=== PATIENT | female | born 1975 | race Hispanic/Latino ===

== ENCOUNTER 2019-06-28 17:06 | Emergency (ER) | payer MEDICAID ==
--- NOTE | 2019-06-28 17:14 | Emergency Department Report ---
Blank Doc - Documentation Documentation: This is a 43-year-old female that presents with right great big toe pain and s welling with possible cellulitis/abscess. Stated has some purulent drainage. This initial assessment/diagnostic orders/clinical plan/treatment(s) is/are subject to change based on patient's health status, clinical progression and re- assessment by fellow clinical providers in the ED. Further treatment and workup at subsequent clinical providers discretion. Patient/guardians urged not to elope from the ED as their condition may be serious if not clinically assessed and managed. Initial orders include: 1- Patient sent to [facility] for further evaluation and treatment
[2019-06-28 17:15] VITALS: BP 120/77
[2019-06-28] MEDS ORDERED: DELTASONE PO STA (20:38)
[2019-06-28] MEDS ORDERED: NORCO 5/325 PO STA (20:38)
--- NOTE | 2019-06-28 20:47 | Emergency Department Report ---
- General Chief Complaint: Animal Bite Stated Complaint: POSS SPIDER BITE ON (R) TOE Time Seen by Provider: 06/28/19 17:13 Source: patient Mode of arrival: Ambulatory Limitations: No Limitations - History of Present Illness Initial Comments: 43-year-old female to emergency department complaining of having a second bite to the right hallux which is swelling and has the clear drainage dull throbbing sensation to his worried about infection presents to the ED for treatment of the infection. She reports no numbness or tingling. No fever, chills, sweats no clubbing, chest pain or palpitations. No abdominal pain. She -: Gradual Extremity Location: Right: Foot Patient Tetanus UTD: No Context: accidental Associated Symptoms: pain - Related Data Previous Rx's Medication Instructions Recorded Last Taken Type Amoxicillin/Potassium Clav 1 each PO BID #20 tablet 06/28/19 Unknown Rx [Augmentin 875-125 Tablet] Chlorhexidine Mouthwash [Peridex] 15 ml MM BID #473 bottle 06/28/19 Unknown Rx Allergies Allergy/AdvReac Type Severity Reaction Status Date / Time latex Allergy Anaphylaxis Verified 06/28/19 17:11 tramadol [From Ultram] Allergy Unknown Verified 06/28/19 17:10 ketorolac [From Toradol] AdvReac Seizure Verified 06/28/19 17:10 prochlorperazine AdvReac Unknown Verified 06/28/19 17:11 [From Compazine] ED Review of Systems ROS: Stated complaint: POSS SPIDER BITE ON (R) TOE Other details as noted in HPI Comment: All other systems reviewed and negative ED Past Medical Hx - Past Medical History Previous Medical History?: Yes Hx Psychiatric Treatment: Yes ([employer]) - Surgical History Past Surgical History?: Yes Additional Surgical History: Eye surgery, blind in right eye. - Social History Smoking Status: Never Smoker Substance Use Type: None - Medications Home Medications: Home Medications Medication Instructions Recorded Confirmed Last Taken Type Amoxicillin/Potassium Clav 1 each PO BID #20 tablet 06/28/19 Unknown Rx [Augmentin 875-125 Tablet] Chlorhexidine Mouthwash [Peridex] 15 ml MM BID #473 bottle 06/28/19 Unknown Rx ED Physical Exam - General Limitations: No Limitations General appearance: alert, in no apparent distress - Head Head exam: Present: atraumatic, normocephalic - Eye Eye exam: Present: normal appearance, PERRL, EOMI Pupils: Present: normal accommodation - ENT ENT exam: Present: normal exam, normal orophraynx, mucous membranes moist - Neck Neck exam: Present: normal inspection, full ROM - Respiratory Respiratory exam: Present: normal lung sounds bilaterally. Absent: respiratory distress - Cardiovascular Cardiovascular Exam: Present: regular rate, normal rhythm. Absent: systolic murmur, diastolic murmur, rubs, gallop - GI/Abdominal GI/Abdominal exam: Present: soft, normal bowel sounds - Extremities Exam Extremities exam: Present: normal inspection - Back Exam Back exam: Present: normal inspection - Neurological Exam Neurological exam: Present: alert, oriented X3 - Psychiatric Psychiatric exam: Present: normal affect, normal mood - Skin Skin exam: Present: warm, dry, erythema (right hallux has some erythema to the dorsum with a small puncture site (os). I will some local redness. There appears to be some mild lymphangitis as well. No lymphadenopathy is appreciated. Pulses are 2+. Capillary refills are brisk.). Absent: rash ED Course Vital Signs 06/28/19 17:13 Temperature 98.4 F Pulse Rate 71 Respiratory 18 Rate Blood Pressure 120/77 O2 Sat by Pulse 100 Oximetry ED Medical Decision Making - Medical Decision Making A 43-year-old female with a host of allergies presents with likely insect bite to toe with some redness and swelling involving infection. This she is afebrile, and infection appears to be local, not involving the entire toe, so we will give [employer] as well as the inflammatory process. I will have the wound reevaluated in 48 hours Critical care attestation.: If time is entered above; I have spent that time in minutes in the direct care of this critically ill patient, excluding procedure time. ED Disposition Clinical Impression: Cellulitis, toe Disposition: DC-01 TO HOME OR SELFCARE Is pt being admited?: No Does the pt Need Aspirin: No Condition: Stable Instructions: Cellulitis (ED), Insect Bite or Sting (ED), Acute Wound Care (ED), Wound Healing and Your Diet (ED) Prescriptions: Amoxicillin/Potassium Clav [Augmentin 875-125 Tablet] 1 each PO BID #20 tablet Chlorhexidine Mouthwash [Peridex] 15 ml MM BID #473 bottle Referrals: DERIC ALMAZAN MD [Primary Care Provider] - 3-5 Days
== END 2019-06-28 20:47 | disposition home or self-care (01) ==
LOC: ED 17:06
DX: L03.031 Cellulitis of right toe (principal); F31.9 Bipolar disorder, unspecified; Z98.890 Other specified postprocedural states; Z79.899 Other long term (current) drug therapy; Z88.8 Allergy status to other drugs, medicaments and biological substances; Z88.6 Allergy status to analgesic agent; Z91.040 Latex allergy status
CPT/HCPCS: 99282; J7512

== ENCOUNTER 2019-07-16 01:20 | Inpatient (IN) | payer MEDICAID ==
[2019-07-16] MEDS ORDERED: NACL 0.9% 500 ML 500 ML IV ONE (01:47)
[2019-07-16] MEDS ORDERED: NACL 0.9% 1000 ML 1,000 ML IV ONE ×7 (01:57→20:58)
[2019-07-16 02:21] LABS: Hematocrit 35.9 % (30.3-42.9); Hemoglobin 12.4 gm/dl (10.1-14.3); Mean Corpuscular HGB Conc 34 % (30-34); Mean Corpuscular Volume 90 fl (79-97); Platelet Count 101 K/mm3 (140-440); Red Blood Count 3.98 M/mm3 (3.65-5.03)
--- NOTE | 2019-07-16 02:27 | XRay Report ---
CHEST 1 VIEW INDICATION: possible Sepsis. COMPARISON: None FINDINGS: Support devices: None. Heart: Within normal limits. Lungs/Pleura: Minimal left basilar atelectasis. Otherwise clear lungs. Additional findings: None. IMPRESSION: 1. No acute findings. Signer Name: Bennett Herr MD Signed: 07/16/2019 2:22 AM Workstation Name: [email or web address]
[2019-07-16 02:31] LABS: INR 1.23 (0.87-1.13)
[2019-07-16] MEDS ORDERED: NACL 0.9% 500 ML 0 ML ONE (02:41)
[2019-07-16 02:45] LABS: Albumin 2.8 g/dL (3.9-5); Calcium 8.6 mg/dL (8.4-10.2)
[2019-07-16] MEDS ORDERED: ZOFRAN IV ONE (02:56)
[2019-07-16] MEDS ORDERED: TYLENOL PO ONE (02:56)
[2019-07-16] MEDS ORDERED: VANCOMYCIN/NS 1 GM/250 ML 1 GM/250 ML BAG IV ONE (03:00)
[2019-07-16 03:34] LABS: Basophils % (Manual) 0 % (0.0-1.8); Eosinophils % (Manual) 0 % (0.0-4.3); Total Cells Counted 100
[2019-07-16 03:35] LABS: Anisocytosis 1+; Crenated RBC 1+; Platelet Estimate Consistent w Auto
--- NOTE | 2019-07-16 04:07 | Cat Scan Report ---
CT ABDOMEN AND PELVIS WITHOUT CONTRAST HISTORY: gen abd pain, hypotension. COMPARISON: None. TECHNIQUE: CT images of the abdomen and pelvis were obtained without administration of intravenous co ntrast. All CT scans at this location are performed using CT dose reduction for ALARA by means of au tomated exposure control. FINDINGS: Lungs/bones: There is mild bibasilar atelectasis and a 5 mm nodule in the periphery of the right mid dle lobe on image #1 of series #2. Mild degenerative changes are present in the spine with a limbus v ertebral body at L4. Nothing acute. Abdomen/pelvis: There is mild periportal edema. The spleen is borderline enlarged but otherwise ther e is no mass. The pancreas, gallbladder, adrenals, and proximal GI tract appear unremarkable. There i s punctate nonobstructive nephrolithiasis in both kidneys as well as mild left-sided perinephric stra nding with no hydronephrosis. Urinary bladder is mostly collapsed but otherwise unremarkable. In the left ovary, there is a rounded slightly hyperdense masslike area measuring 1.8 cm on image #165. Reproductive organs are otherwise unremarkable on this limited noncontrast examination. No pelvic free fluid. There is colonic divertic ulosis with no acute colonic abnormality identified. The appendix and terminal ileum appear unremarka ble. IMPRESSION: 1. Mild nonspecific left-sided perinephric stranding in this patient with punctate bilateral nonobstr uctive nephrolithiasis. No asymmetric hydronephrosis or ureteral stone disease. 2. Complex cyst versus mass in the left ovary. Recommend nonemergent follow-up pelvic ultrasound. 3. Mild periportal edema could be related to aggressive hydration therapy. 4. Other incidental findings as outlined above on this limited noncontrast exam with mild motion mary ann fact. Of note, there is a 5 mm nodule in the right middle lobe. Please see below recommendations. INCIDENTAL PULMONARY NODULE RECOMMENDATIONS Solid Nodule size <6 mm -- Single or Multiple - Low Risk Patient: No routine follow-up - High Risk Patient: Optional CT at 12 months Note These recommendations do not apply to lung cancer screening, patients with immunosuppression, o r patients with known primary cancer. Note Newly detected indeterminate nodule in persons 35 years of age or older. Persons under the age of 35 should not receive follow-up unless there is a known primary cancer. Low Risk Patient -- minimal or absent history of smoking and of other known risk factors. High Risk Patient -- history of smoking or of other known risk factors. Nodule dimensions are average of long and short axes, rounded to the nearest millimeter. Based on 2017 Fleischner Society Guidelines found in Radiology 2017 284:228-243. [email or web address] Signer Name: Bennett Herr MD Signed: 07/16/2019 4:03 AM Workstation Name: [email or web address]
[2019-07-16] MEDS ORDERED: DILAUDID ONE (04:44)
[2019-07-16] MEDS ORDERED: LEVOPHED DRIP 4 MG/NS 250 ML 4 MG/250 ML BAG IV ONE (04:45)
[2019-07-16] MEDS: LEVOPHED DRIP 4 MG/NS 250 ML 4 MG/250 ML BAG IV SCH ×5 (04:50→19:41)
[2019-07-16] MEDS ORDERED: DILAUDID IV ONE ×2 (04:54→17:00)
--- NOTE | 2019-07-16 05:00 | Emergency Department Report ---
ED Fever HPI - General Chief Complaint: Abdominal Pain Stated Complaint: SIDE PAIN Time Seen by Provider: 07/16/19 02:18 Source: patient, old records Exam Limitations: no limitations - History of Present Illness Initial Comments: 44-year-old female with a past medical history of bipolar disorder presents complaining of abdominal pain, fever, right foot infection. Patient was seen here on the June 28 for a possible insect bite/infection of her right great toe. She completed the 10 days of Augmentin as prescribed. For the past 4 days she's been having intermittent fevers, bodyaches, feeling weak, nausea, generalized abdominal pain, and worsening redness to her right foot. Positive cough reported. ED Review of Systems ROS: Stated complaint: SIDE PAIN Other details as noted in HPI Comment: All other systems reviewed and negative ED Past Medical Hx - Past Medical History Previous Medical History?: Yes Hx Psychiatric Treatment: Yes (Bi Polar) - Surgical History Past Surgical History?: No Additional Surgical History: Eye surgery, blind in right eye. - Social History Smoking Status: Current Every Day Smoker Substance Use Type: None - Medications Home Medications: Home Medications Medication Instructions Recorded Confirmed Last Taken Type No Known Home Medications [No 07/16/19 07/16/19 Unknown History Reported Home Medications] ED Physical Exam - General Limitations: No Limitations - Other Other exam information: General: No acute distress Eyes: Normal appearance, pupils equal reactive to light, extraocular movements intact ENT: Normal oropharynx Neck: Normal appearance, no C-spine tenderness, no meningismus Chest: Clear to auscultation bilaterally, no wheezes, rales, or crackles Cardiovascular: Regular rate and rhythm Abdomen: Soft, nondistended, generalized abdominal tenderness, no rebound or guarding, normal bowel sounds Back: Normal inspection, nontender Extremity: Normal inspection, no deformity, full range of motion Neuro: Alert and oriented 3, speech clear, no gross motor or sensory deficit Skin: Ruptured abscess to right great toe with erythema. Erythema to second toe and dorsum of foot with warmth. 2+ DP pulse ED Course Vital Signs 07/16/19 07/16/19 07/16/19 01:45 02:05 03:10 Temperature 98.1 F 98.1 F Temperature [ Intra-Procedure ] Temperature [ Post-Procedure] Temperature [ Pre-Procedure] Pulse Rate 120 H 117 H Pulse Rate [ Intra-Procedure ] Pulse Rate [ Post-Procedure] Pulse Rate [Pre -Procedure] Respiratory 18 23 16 Rate Respiratory Rate [Intra- Procedure] Respiratory Rate [Post- Procedure] Respiratory Rate [Pre- Procedure] Blood Pressure 79/52 Blood Pressure [Intra- Procedure] Blood Pressure [Post-Procedure ] Blood Pressure [Pre-Procedure] Blood Pressure 77/46 [Right] O2 Sat by Pulse 99 96 Oximetry O2 Sat by Pulse Oximetry [ Intra-Procedure ] O2 Sat by Pulse Oximetry [Post -Procedure] O2 Sat by Pulse Oximetry [Pre- Procedure] 07/16/19 07/16/19 07/16/19 03:27 03:30 04:50 Temperature Temperature [ 98 F Intra-Procedure ] Temperature [ 98 F Post-Procedure] Temperature [ 97.8 F Pre-Procedure] Pulse Rate 98 H 94 H Pulse Rate [ 101 H Intra-Procedure ] Pulse Rate [ 105 H Post-Procedure] Pulse Rate [Pre 99 H -Procedure] Respiratory 39 H 40 H Rate Respiratory 25 H Rate [Intra- Procedure] Respiratory 21 Rate [Post- Procedure] Respiratory 29 H Rate [Pre- Procedure] Blood Pressure 85/50 81/48 Blood Pressure 82/52 [Intra- Procedure] Blood Pressure 82/55 [Post-Procedure ] Blood Pressure 83/65 [Pre-Procedure] Blood Pressure [Right] O2 Sat by Pulse 99 100 Oximetry O2 Sat by Pulse 98 Oximetry [ Intra-Procedure ] O2 Sat by Pulse 98 Oximetry [Post -Procedure] O2 Sat by Pulse 98 Oximetry [Pre- Procedure] - Central Line Placement Right IJ Consent Obtained: written consent Time Out Performed: Yes Patient Placed on Monitor/Pulse Ox: Yes MD Prep: mask, gown, gloves Central Line Prep: Chlorhexidine scrub Local Anesthesia Used: Lidocaine 1% Amount of Anesthesia Used (mls): 5 Ultrasound Used for Placement: Yes Central Line Lumen Inserted: triple Bloods Obtained for Lab: Yes Central Line Position: good blood return, sutured in place with nyl Dressing Applied: Tegaderm Post Procedure X-Ray: tip of catheter in good p Patient Tolerated Procedure: well, no complications Complications: none ED Medical Decision Making - Lab Data Result diagrams: 07/16/19 02:01 07/16/19 02:01 Lab Results 07/16/19 07/16/19 07/16/19 Range/Units 02:01 02:01 02:01 WBC 11.7 H (4.5-11.0) K/mm3 RBC 3.98 (3.65-5.03) M/mm3 Hgb 12.4 (10.1-14.3) gm/dl Hct 35.9 (30.3-42.9) % MCV 90 (79-97) fl MCH 31 (28-32) pg MCHC 34 (30-34) % RDW 14.0 (13.2-15.2) % Plt Count 101 L (140-440) K/mm3 Add Manual Diff Complete Total Counted 100 Seg Neuts % (Manual) 92.0 H (40.0-70.0) % Band Neutrophils % 0 % Lymphocytes % (Manual) 5.0 L (13.4-35.0) % Reactive Lymphs % (Man) 0 % Monocytes % (Manual) 3.0 (0.0-7.3) % Eosinophils % (Manual) 0 (0.0-4.3) % Basophils % (Manual) 0 (0.0-1.8) % Metamyelocytes % 0 % Myelocytes % 0 % Promyelocytes % 0 % Blast Cells % 0 % Nucleated RBC % Not Reportable Seg Neutrophils # Man 10.8 H (1.8-7.7) K/mm3 Band Neutrophils # 0.0 K/mm3 Lymphocytes # (Manual) 0.6 L (1.2-5.4) K/mm3 Abs React Lymphs (Man) 0.0 K/mm3 Monocytes # (Manual) 0.4 (0.0-0.8) K/mm3 Eosinophils # (Manual) 0.0 (0.0-0.4) K/mm3 Basophils # (Manual) 0.0 (0.0-0.1) K/mm3 Metamyelocytes # 0.0 K/mm3 Myelocytes # 0.0 K/mm3 Promyelocytes # 0.0 K/mm3 Blast Cells # 0.0 K/mm3 WBC Morphology Not Reportable Hypersegmented Neuts Not Reportable Hyposegmented Neuts Not Reportable Hypogranular Neuts Not Reportable Smudge Cells Not Reportable Toxic Granulation Not Reportable Toxic Vacuolation Not Reportable Dohle Bodies Not Reportable Pelger-Huet Anomaly Not Reportable [place] Rods Not Reportable Platelet Estimate Consistent w auto Clumped Platelets Not Reportable Plt Clumps, EDTA Not Reportable Large Platelets Not Reportable Giant Platelets Not Reportable Platelet Satelliting Not Reportable Plt Morphology Comment Not Reportable RBC Morphology Not Reportable Dimorphic RBCs Not Reportable Polychromasia Not Reportable Hypochromasia Not Reportable Poikilocytosis Not Reportable Anisocytosis 1+ Microcytosis Not Reportable Macrocytosis Not Reportable Spherocytes Not Reportable Pappenheimer Bodies Not Reportable Sickle Cells Not Reportable Target Cells Not Reportable Tear Drop Cells Not Reportable Ovalocytes Not Reportable Helmet Cells Not Reportable [place] Bodies Not Reportable [place] Rings Not Reportable Barrow Cells Not Reportable Bite Cells Not Reportable Crenated Cell 1+ Elliptocytes Not Reportable Acanthocytes (Spur) Not Reportable Rouleaux Not Reportable Hemoglobin C Crystals Not Reportable Schistocytes Not Reportable Malaria parasites Not Reportable Mark Bodies Not Reportable Hem Pathologist Commnt No PT 15.2 H (12.2-14.9) Sec. INR 1.23 H (0.87-1.13) VBG pH (7.320-7.420) Sodium 137 (137-145) mmol/L Potassium 4.0 (3.6-5.0) mmol/L Chloride 105.2 (98-107) mmol/L Carbon Dioxide 18 L (22-30) mmol/L Anion Gap 18 mmol/L BUN 46 H (7-17) mg/dL Creatinine 2.2 H (0.7-1.2) mg/dL Estimated GFR 24 ml/min BUN/Creatinine Ratio 21 % Glucose 116 H (65-100) mg/dL Lactic Acid (0.7-2.0) mmol/L Calcium 8.6 (8.4-10.2) mg/dL Total Bilirubin 0.40 (0.1-1.2) mg/dL AST 63 H (5-40) units/L ALT 125 H (7-56) units/L Alkaline Phosphatase 73 (35-129) units/L Total Protein 6.2 L (6.3-8.2) g/dL Albumin 2.8 L (3.9-5) g/dL Albumin/Globulin Ratio 0.8 % Lipase (13-60) units/L HCG, Quant (0-4) mIU/mL Blood Type Antibody Screen 07/16/19 07/16/19 07/16/19 Range/Units 02:01 02:01 02:16 WBC (4.5-11.0) K/mm3 RBC (3.65-5.03) M/mm3 Hgb (10.1-14.3) gm/dl Hct (30.3-42.9) % MCV (79-97) fl MCH (28-32) pg MCHC (30-34) % RDW (13.2-15.2) % Plt Count (140-440) K/mm3 Add Manual Diff Total Counted Seg Neuts % (Manual) (40.0-70.0) % Band Neutrophils % % Lymphocytes % (Manual) (13.4-35.0) % Reactive Lymphs % (Man) % Monocytes % (Manual) (0.0-7.3) % Eosinophils % (Manual) (0.0-4.3) % Basophils % (Manual) (0.0-1.8) % Metamyelocytes % % Myelocytes % % Promyelocytes % % Blast Cells % % Nucleated RBC % Seg Neutrophils # Man (1.8-7.7) K/mm3 Band Neutrophils # K/mm3 Lymphocytes # (Manual) (1.2-5.4) K/mm3 Abs React Lymphs (Man) K/mm3 Monocytes # (Manual) (0.0-0.8) K/mm3 Eosinophils # (Manual) (0.0-0.4) K/mm3 Basophils # (Manual) (0.0-0.1) K/mm3 Metamyelocytes # K/mm3 Myelocytes # K/mm3 Promyelocytes # K/mm3 Blast Cells # K/mm3 WBC Morphology Hypersegmented Neuts Hyposegmented Neuts Hypogranular Neuts Smudge Cells Toxic Granulation Toxic Vacuolation Dohle Bodies Pelger-Huet Anomaly [place] Rods Platelet Estimate Clumped Platelets Plt Clumps, EDTA Large Platelets Giant Platelets Platelet Satelliting Plt Morphology Comment RBC Morphology Dimorphic RBCs Polychromasia Hypochromasia Poikilocytosis Anisocytosis Microcytosis Macrocytosis Spherocytes Pappenheimer Bodies Sickle Cells Target Cells Tear Drop Cells Ovalocytes Helmet Cells [place] Bodies [place] Rings Barrow Cells Bite Cells Crenated Cell Elliptocytes Acanthocytes (Spur) Rouleaux Hemoglobin C Crystals Schistocytes Malaria parasites Mark Bodies Hem Pathologist Commnt PT (12.2-14.9) Sec. INR (0.87-1.13) VBG pH 7.326 (7.320-7.420) Sodium (137-145) mmol/L Potassium (3.6-5.0) mmol/L Chloride (98-107) mmol/L Carbon Dioxide (22-30) mmol/L Anion Gap mmol/L BUN (7-17) mg/dL Creatinine (0.7-1.2) mg/dL Estimated GFR ml/min BUN/Creatinine Ratio % Glucose (65-100) mg/dL Lactic Acid 2.00 (0.7-2.0) mmol/L Calcium (8.4-10.2) mg/dL Total Bilirubin (0.1-1.2) mg/dL AST (5-40) units/L ALT (7-56) units/L Alkaline Phosphatase (35-129) units/L Total Protein (6.3-8.2) g/dL Albumin (3.9-5) g/dL Albumin/Globulin Ratio % Lipase (13-60) units/L HCG, Quant 0.920 (0-4) mIU/mL Blood Type Antibody Screen 07/16/19 07/16/19 07/16/19 Range/Units 02:16 02:16 02:43 WBC (4.5-11.0) K/mm3 RBC (3.65-5.03) M/mm3 Hgb (10.1-14.3) gm/dl Hct (30.3-42.9) % MCV (79-97) fl MCH (28-32) pg MCHC (30-34) % RDW (13.2-15.2) % Plt Count (140-440) K/mm3 Add Manual Diff Total Counted Seg Neuts % (Manual) (40.0-70.0) % Band Neutrophils % % Lymphocytes % (Manual) (13.4-35.0) % Reactive Lymphs % (Man) % Monocytes % (Manual) (0.0-7.3) % Eosinophils % (Manual) (0.0-4.3) % Basophils % (Manual) (0.0-1.8) % Metamyelocytes % % Myelocytes % % Promyelocytes % % Blast Cells % % Nucleated RBC % Seg Neutrophils # Man (1.8-7.7) K/mm3 Band Neutrophils # K/mm3 Lymphocytes # (Manual) (1.2-5.4) K/mm3 Abs React Lymphs (Man) K/mm3 Monocytes # (Manual) (0.0-0.8) K/mm3 Eosinophils # (Manual) (0.0-0.4) K/mm3 Basophils # (Manual) (0.0-0.1) K/mm3 Metamyelocytes # K/mm3 Myelocytes # K/mm3 Promyelocytes # K/mm3 Blast Cells # K/mm3 WBC Morphology Hypersegmented Neuts Hyposegmented Neuts Hypogranular Neuts Smudge Cells Toxic Granulation Toxic Vacuolation Dohle Bodies Pelger-Huet Anomaly [place] Rods Platelet Estimate Clumped Platelets Plt Clumps, EDTA Large Platelets Giant Platelets Platelet Satelliting Plt Morphology Comment RBC Morphology Dimorphic RBCs Polychromasia Hypochromasia Poikilocytosis Anisocytosis Microcytosis Macrocytosis Spherocytes Pappenheimer Bodies Sickle Cells Target Cells Tear Drop Cells Ovalocytes Helmet Cells [place] Bodies [place] Rings Gavino Cells Bite Cells Crenated Cell Elliptocytes Acanthocytes (Spur) Rouleaux Hemoglobin C Crystals Schistocytes Malaria parasites Mark Bodies Hem Pathologist Commnt PT (12.2-14.9) Sec. INR (0.87-1.13) VBG pH (7.320-7.420) Sodium (137-145) mmol/L Potassium (3.6-5.0) mmol/L Chloride (98-107) mmol/L Carbon Dioxide (22-30) mmol/L Anion Gap mmol/L BUN (7-17) mg/dL Creatinine (0.7-1.2) mg/dL Estimated GFR ml/min BUN/Creatinine Ratio % Glucose (65-100) mg/dL Lactic Acid 2.10 H* (0.7-2.0) mmol/L Calcium (8.4-10.2) mg/dL Total Bilirubin (0.1-1.2) mg/dL AST (5-40) units/L ALT (7-56) units/L Alkaline Phosphatase (35-129) units/L Total Protein (6.3-8.2) g/dL Albumin (3.9-5) g/dL Albumin/Globulin Ratio % Lipase 6 L (13-60) units/L HCG, Quant (0-4) mIU/mL Blood Type O POSITIVE Antibody Screen Negative 07/16/19 Range/Units 04:07 WBC (4.5-11.0) K/mm3 RBC (3.65-5.03) M/mm3 Hgb (10.1-14.3) gm/dl Hct (30.3-42.9) % MCV (79-97) fl MCH (28-32) pg MCHC (30-34) % RDW (13.2-15.2) % Plt Count (140-440) K/mm3 Add Manual Diff Total Counted Seg Neuts % (Manual) (40.0-70.0) % Band Neutrophils % % Lymphocytes % (Manual) (13.4-35.0) % Reactive Lymphs % (Man) % Monocytes % (Manual) (0.0-7.3) % Eosinophils % (Manual) (0.0-4.3) % Basophils % (Manual) (0.0-1.8) % Metamyelocytes % % Myelocytes % % Promyelocytes % % Blast Cells % % Nucleated RBC % Seg Neutrophils # Man (1.8-7.7) K/mm3 Band Neutrophils # K/mm3 Lymphocytes # (Manual) (1.2-5.4) K/mm3 Abs React Lymphs (Man) K/mm3 Monocytes # (Manual) (0.0-0.8) K/mm3 Eosinophils # (Manual) (0.0-0.4) K/mm3 Basophils # (Manual) (0.0-0.1) K/mm3 Metamyelocytes # K/mm3 Myelocytes # K/mm3 Promyelocytes # K/mm3 Blast Cells # K/mm3 WBC Morphology Hypersegmented Neuts Hyposegmented Neuts Hypogranular Neuts Smudge Cells Toxic Granulation Toxic Vacuolation Dohle Bodies Pelger-Huet Anomaly [place] Rods Platelet Estimate Clumped Platelets Plt Clumps, EDTA Large Platelets Giant Platelets Platelet Satelliting Plt Morphology Comment RBC Morphology Dimorphic RBCs Polychromasia Hypochromasia Poikilocytosis Anisocytosis Microcytosis Macrocytosis Spherocytes Pappenheimer Bodies Sickle Cells Target Cells Tear Drop Cells Ovalocytes Helmet Cells [place] Bodies [place] Rings Barrow Cells Bite Cells Crenated Cell Elliptocytes Acanthocytes (Spur) Rouleaux Hemoglobin C Crystals Schistocytes Malaria parasites Mark Bodies Hem Pathologist Commnt PT (12.2-14.9) Sec. INR (0.87-1.13) VBG pH (7.320-7.420) Sodium (137-145) mmol/L Potassium (3.6-5.0) mmol/L Chloride (98-107) mmol/L Carbon Dioxide (22-30) mmol/L Anion Gap mmol/L BUN (7-17) mg/dL Creatinine (0.7-1.2) mg/dL Estimated GFR ml/min BUN/Creatinine Ratio % Glucose (65-100) mg/dL Lactic Acid 2.30 H* (0.7-2.0) mmol/L Calcium (8.4-10.2) mg/dL Total Bilirubin (0.1-1.2) mg/dL AST (5-40) units/L ALT (7-56) units/L Alkaline Phosphatase (35-129) units/L Total Protein (6.3-8.2) g/dL Albumin (3.9-5) g/dL Albumin/Globulin Ratio % Lipase (13-60) units/L HCG, Quant (0-4) mIU/mL Blood Type Antibody Screen - EKG Data -: EKG Interpreted by Ct EKG shows normal: sinus rhythm, axis, ST-T waves (no stemi) Rate: normal (93) - Radiology Data Radiology results: report reviewed CHEST 1 VIEW INDICATION: possible Sepsis. COMPARISON: None FINDINGS: Support devices: None. Heart: Within normal limits. Lungs/Pleura: Minimal left basilar atelectasis. Otherwise clear lungs. Additional findings: None. IMPRESSION: 1. No acute findings. CT ABDOMEN AND PELVIS WITHOUT CONTRAST HISTORY: gen abd pain, hypotension. COMPARISON: None. TECHNIQUE: CT images of the abdomen and pelvis were obtained without administration of intravenous contrast. All CT scans at this location are performed using CT dose reduction for ALARA by means of automated exposure control. FINDINGS: Lungs/bones: There is mild bibasilar atelectasis and a 5 mm nodule in the periphery of the right middle lobe on image #1 of series #2. Mild degenerative changes are present in the spine with a limbus vertebral body at L4. Nothing acute. Abdomen/pelvis: There is mild periportal edema. The spleen is borderline enlarged but otherwise there is no mass. The pancreas, gallbladder, adrenals, and proximal GI tract appear unremarkable. T here is punctate nonobstructive nephrolithiasis in both kidneys as well as mild left-sided perinephric stranding with no hydronephrosis. Urinary bladder is mostly collapsed but otherwise unremarkable. In the left ovary, there is a rounded slightly hyperdense masslike area measuring 1.8 cm on image #165. R eproductive organs are otherwise unremarkable on this limited noncontrast examination. No pelvic free fluid. There is colonic diverticulosis with no acute colonic abnormality identified. The appendi x and terminal ileum appear unremarkable. IMPRESSION: 1. Mild nonspecific left-sided perinephric stranding in this patient with punctate bilateral nonobstructive nephrolithiasis. No asymmetric hydronephrosis or ureteral stone disease. 2. Complex cyst versus mass in the left ovary. Recommend nonemergent follow-up pelvic ultrasound. 3. Mild periportal edema could be related to aggressive hydration therapy. 4. Other incidental findings as outlined above on this limited noncontrast exam with mild motion artifact. Of note, there is a 5 mm nodule in the right middle lobe. Please see below recommendations. INCIDENTAL PULMONARY NODULE RECOMMENDATIONS Solid Nodule size <6 mm -- Single or Multiple - Low Risk Patient: No routine follow-up - High Risk Patient: Optional CT at 12 months Note These recommendations do not apply to lung cancer screening, patients with immunosuppression, or patients with known primary cancer. Note Newly detected indeterminate nodule in persons 35 years of age or older. Persons under the age of 35 should not receive follow-up unless there is a known primary cancer. Low Risk Patient -- minimal or absent history of smoking and of other known risk factors. High Risk Patient -- history of smoking or of other known risk factors. Nodule dimensions are average of long and short axes, rounded to the nearest millimeter. FINDINGS: Support devices: Right IJ CVL with tip in satisfactory position at the cavoatrial junction. Heart: Within normal limits. Lungs/Pleura: Mild left basilar atelectasis. No pneumothorax. Additional findings: None. IMPRESSION: 1. Right IJ CVL in satisfactory position without complication. - Medical Decision Making Despite 3 L of normal saline patient's systolic blood pressure was still in the 70s and 80s. Central line placed and Levophed initiated. IV Dilaudid ordered for generalized pain as well as Zofran for nausea. Patient treated with vancomycin and Zosyn added. Urine collection pending at disposition. elevated creatinine and LFTs noted without previous for comparison pt will need icu admission - Differential Diagnosis sepsis, cellulitis, intra-abdominal infection, UTI, pneumonia Critical Care Time: Yes Critical care time in (mins) excluding proc time.: 65 Critical care attestation.: If time is entered above; I have spent that time in minutes in the direct care of this critically ill patient, excluding procedure time. ED Disposition Clinical Impression: Septic shock, Cellulitis of left foot, Abdominal pain, Renal insufficiency, Elevated LFTs Disposition: OP ADMIT IP TO THIS HOSP Is pt being admited?: Yes Condition: Fair Time of Disposition: 05:15 (Dr Mae/hospitalist)
[2019-07-16] MEDS ORDERED: ZOSYN/NS 4.5GM/100ML 4.5 GM/100 ML VIAL IV ONE (05:01)
--- NOTE | 2019-07-16 05:14 | XRay Report ---
CHEST 1 VIEW INDICATION: s/p central line insertion. COMPARISON: Earlier today FINDINGS: Support devices: Right IJ CVL with tip in satisfactory position at the cavoatrial junction. Heart: Within normal limits. Lungs/Pleura: Mild left basilar atelectasis. No pneumothorax. Additional findings: None. IMPRESSION: 1. Right IJ CVL in satisfactory position without complication. Signer Name: Bennett Herr MD Signed: 07/16/2019 5:09 AM Workstation Name: [id number]
[2019-07-16] MEDS ORDERED: SODIUM CHLORIDE FLUSH SYRINGE 10 ML IV PRN (05:36)
--- NOTE | 2019-07-16 05:47 | History and Physical Report ---
History of Present Illness Chief complaint: Fever History of present illness: 44-year-old woman with history of bipolar disorder presents to the hospital with abdominal pain fever and right foot pain. She was seen last month for insect bite on her right big toe. She was treated with 10 days of antibiotics, but she presents with intermittent fevers, body aches, weakness and nausea and malaise generalized abdominal pain for worsening redness of her right foot. Past medical history bipolar disorder, blind in right eye Surgical history, eye surgery, blind in right eye Social history; every day smoker Family history; no history of diabetes Medications and Allergies Allergies Allergy/AdvReac Type Severity Reaction Status Date / Time latex Allergy Anaphylaxis Verified 06/28/19 17:11 tramadol [From Ultram] Allergy Unknown Verified 06/28/19 17:10 ketorolac [From Toradol] AdvReac Seizure Verified 06/28/19 17:10 prochlorperazine AdvReac Unknown Verified 06/28/19 17:11 [From Compazine] Home Medications Medication Instructions Recorded Confirmed Last Taken Type No Known Home Medications [No 07/16/19 07/16/19 Unknown History Reported Home Medications] Active Meds: Active Medications Acetaminophen (Tylenol) 650 mg PO Q4H PRN PRN Reason: Pain MILD(1-3)/Fever >100.5/WHALEN Enoxaparin Sodium (Lovenox) 40 mg SUB-Q QDAY KASIE Hydromorphone HCl (Dilaudid) 0.25 mg IV Q3H PRN PRN Reason: Pain, Moderate (4-6) Norepinephrine (Levophed Drip 4 Mg/Ns 250 Ml) 4 mg in 250 mls @ 7.5 mls/hr IV TITR KASIE; Protocol Last Titration: 07/16/19 05:35 Dose: 8 mcg/min, 30 mls/hr Documented by: Cefepime HCl (Maxipime/Ns 2 Gm/100 Ml) 2 gm in 100 mls @ 200 mls/hr IV Q8HR KASIE; Protocol Sodium Chloride (Nacl 0.9% 1000 Ml) 1,000 mls @ 150 mls/hr IV DIRECT KASIE Nicotine (Habitrol) 14 mg TD QDAY KASIE Ondansetron HCl (Zofran) 4 mg IV Q8H PRN PRN Reason: Nausea And Vomiting Oxycodone/Acetaminophen (Percocet 5/325) 1 tab PO Q6H PRN PRN Reason: Pain, Moderate (4-6) Sodium Chloride (Sodium Chloride Flush Syringe 10 Ml) 10 ml IV BID KASIE Sodium Chloride (Sodium Chloride Flush Syringe 10 Ml) 10 ml IV PRN PRN PRN Reason: LINE FLUSH Review of Systems All systems: negative Constitutional: fatigue, malaise Ears, nose, mouth and throat: no ear pain Breasts: deferred Cardiovascular: no chest pain Respiratory: no cough Gastrointestinal: abdominal pain Genitourinary Female: no dysmenorrhea Rectal: no pain Musculoskeletal: no neck stiffness Integumentary: redness Neurological: no head injury Psychiatric: no anxiety Endocrine: no cold intolerance Hematologic/Lymphatic: no easy bruising Allergic/Immunologic: no urticaria Exam - Constitutional Vitals: Temp Pulse Resp BP Pulse Ox 97.8 F 99 H 16 83/65 98 07/16/19 04:50 07/16/19 04:50 07/16/19 05:25 07/16/19 04:50 07/16/19 04:50 General appearance: Present: no acute distress, well-nourished - EENT Eyes: Present: PERRL ENT: hearing intact, clear oral mucosa - Neck Neck: Present: supple, normal ROM - Respiratory Respiratory effort: normal Respiratory: bilateral: CTA - Cardiovascular Heart Sounds: Present: S1 & S2. Absent: rub, click - Extremities Extremities: pulses symmetrical Extremity abnormal: edema (right lower extremity), erythema, tenderness, other (fluctuance of 1st and second Right toes) Peripheral Pulses: within normal limits - Abdominal General gastrointestinal: Present: soft, non-tender, non-distended, normal bowel sounds Female genitourinary: Present: normal - Integumentary Integumentary: Present: clear, warm, dry - Musculoskeletal Musculoskeletal: gait normal, strength equal bilaterally - Psychiatric Psychiatric: appropriate mood/affect, intact judgment & insight - Neurologic Neurologic: CNII-XII intact, moves all extremities Results - Labs CBC & Chem 7: 07/16/19 02:01 07/16/19 02:01 Labs: Laboratory Last Values WBC 11.7 K/mm3 (4.5-11.0) H 07/16/19 02:01 RBC 3.98 M/mm3 (3.65-5.03) 07/16/19 02:01 Hgb 12.4 gm/dl (10.1-14.3) 07/16/19 02:01 Hct 35.9 % (30.3-42.9) 07/16/19 02:01 MCV 90 fl (79-97) 07/16/19 02:01 MCH 31 pg (28-32) 07/16/19 02:01 MCHC 34 % (30-34) 07/16/19 02:01 RDW 14.0 % (13.2-15.2) 07/16/19 02:01 Plt Count 101 K/mm3 (140-440) L 07/16/19 02:01 Add Manual Diff Complete 07/16/19 02:01 Total Counted 100 07/16/19 02:01 Seg Neuts % (Manual) 92.0 % (40.0-70.0) H 07/16/19 02:01 0 % 07/16/19 02:01 5.0 % (13.4-35.0) L 07/16/19 02:01 Reactive Lymphs % (Man) 0 % 07/16/19 02:01 3.0 % (0.0-7.3) 07/16/19 02:01 0 % (0.0-4.3) 07/16/19 02:01 0 % (0.0-1.8) 07/16/19 02:01 0 % 07/16/19 02:01 0 % 07/16/19 02:01 0 % 07/16/19 02:01 0 % 07/16/19 02:01 Nucleated RBC % Not Reportable 07/16/19 02:01 Seg Neutrophils # Man 10.8 K/mm3 (1.8-7.7) H 07/16/19 02:01 Band Neutrophils # 0.0 K/mm3 07/16/19 02:01 0.6 K/mm3 (1.2-5.4) L 07/16/19 02:01 Abs React Lymphs (Man) 0.0 K/mm3 07/16/19 02:01 0.4 K/mm3 (0.0-0.8) 07/16/19 02:01 0.0 K/mm3 (0.0-0.4) 07/16/19 02:01 0.0 K/mm3 (0.0-0.1) 07/16/19 02:01 0.0 K/mm3 07/16/19 02:01 0.0 K/mm3 07/16/19 02:01 0.0 K/mm3 07/16/19 02:01 Blast Cells # 0.0 K/mm3 07/16/19 02:01 WBC Morphology Not Reportable 07/16/19 02:01 Hypersegmented Neuts Not Reportable 07/16/19 02:01 Hyposegmented Neuts Not Reportable 07/16/19 02:01 Hypogranular Neuts Not Reportable 07/16/19 02:01 Not Reportable 07/16/19 02:01 Not Reportable 07/16/19 02:01 Not Reportable 07/16/19 02:01 Not Reportable 07/16/19 02:01 Not Reportable 07/16/19 02:01 Not Reportable 07/16/19 02:01 Consistent w auto 07/16/19 02:01 Not Reportable 07/16/19 02:01 Plt Clumps, EDTA Not Reportable 07/16/19 02:01 Not Reportable 07/16/19 02:01 Not Reportable 07/16/19 02:01 Not Reportable 07/16/19 02:01 Plt Morphology Comment Not Reportable 07/16/19 02:01 RBC Morphology Not Reportable 07/16/19 02:01 Dimorphic RBCs Not Reportable 07/16/19 02:01 Not Reportable 07/16/19 02:01 Not Reportable 07/16/19 02:01 Not Reportable 07/16/19 02:01 1+ 07/16/19 02:01 Not Reportable 07/16/19 02:01 Not Reportable 07/16/19 02:01 Not Reportable 07/16/19 02:01 Not Reportable 07/16/19 02:01 Not Reportable 07/16/19 02:01 Not Reportable 07/16/19 02:01 Not Reportable 07/16/19 02:01 Not Reportable 07/16/19 02:01 Not Reportable 07/16/19 02:01 Not Reportable 07/16/19 02:01 Not Reportable 07/16/19 02:01 Not Reportable 07/16/19 02:01 Not Reportable 07/16/19 02:01 1+ 07/16/19 02:01 Not Reportable 07/16/19 02:01 Acanthocytes (Spur) Not Reportable 07/16/19 02:01 Rouleaux Not Reportable 07/16/19 02:01 Not Reportable 07/16/19 02:01 Not Reportable 07/16/19 02:01 Not Reportable 07/16/19 02:01 Not Reportable 07/16/19 02:01 Hem Pathologist Commnt No 07/16/19 02:01 PT 15.2 Sec. (12.2-14.9) H 07/16/19 02:01 INR 1.23 (0.87-1.13) H 07/16/19 02:01 VBG pH 7.326 (7.320-7.420) 07/16/19 02:01 Sodium 137 mmol/L (137-145) 07/16/19 02:01 Potassium 4.0 mmol/L (3.6-5.0) 07/16/19 02:01 Chloride 105.2 mmol/L (98-107) 07/16/19 02:01 Carbon Dioxide 18 mmol/L (22-30) L 07/16/19 02:01 18 mmol/L 07/16/19 02:01 BUN 46 mg/dL (7-17) H 07/16/19 02:01 2.2 mg/dL (0.7-1.2) H 07/16/19 02:01 Estimated GFR 24 ml/min 07/16/19 02:01 21 % 07/16/19 02:01 Glucose 116 mg/dL (65-100) H 07/16/19 02:01 Lactic Acid 2.30 mmol/L (0.7-2.0) H* 07/16/19 04:07 Calcium 8.6 mg/dL (8.4-10.2) 07/16/19 02:01 0.40 mg/dL (0.1-1.2) 07/16/19 02:01 AST 63 units/L (5-40) H 07/16/19 02:01 ALT 125 units/L (7-56) H 07/16/19 02:01 73 units/L (35-129) 07/16/19 02:01 6.2 g/dL (6.3-8.2) L 07/16/19 02:01 2.8 g/dL (3.9-5) L 07/16/19 02:01 0.8 % 07/16/19 02:01 6 units/L (13-60) L 07/16/19 02:16 HCG, Quant 0.920 mIU/mL (0-4) 07/16/19 02:16 Blood Type O POSITIVE 07/16/19 02:16 Antibody Screen Negative 07/16/19 02:16 Assessment and Plan Assessment and plan: 44-year-old woman who presents with right foot cellulitis failed outpatient antibiotics, presents with worsening sepsis and hypotension. Patient presented hospital with fever, generalized weakness, abdominal pain and right foot pain CT abdomen and pelvis Left-sided perinephric stranding, complex cyst versus mass in left ovary, 5 mm right middle lung nodule Severe sepsis with organ failure/Septic shock/right foot infection/pyelonephritis IV fluids, IV pressors Sepsis protocol, blood cultures, CT scan lower extremity, MRI right foot, concern for abscess and for osteomyelitis, general surgery consult -abscess involving the first and second toe of the right foot, may benefit from drainage -Follow up urine cultures, continue. Antibiotics Acute kidney injury due to ATN IV fluids, on pressors, nephrology consult Tobacco abuse Smoking cessation counseling, nicotine patches Preventative health counseling performed for 17 minutes Left ovarian mass versus cyst? Pelvic and transvaginal ultrasound Bipolar disorder Not currently on any meds at home DVT prophylaxis; Lovenox critical care time 35 minutes
[2019-07-16] MEDS ORDERED: VANCOMYCIN PHARMACY TO DOSE IV SCH (06:00)
[2019-07-16 06:05] LABS: INR 1.35 (0.87-1.13)
[2019-07-16 06:06] LABS: Partial Thromboplastin Time 32.4 Sec. (24.2-36.6)
[2019-07-16 06:31] LABS: Bacteria,Urine 1+ /HPF (Negative); Bilirubin,Urine NEG (Negative); Blood,Urine MOD (Negative); Color,Urine Amber (Yellow); Mucus,Urine FEW /HPF; Urobilinogen,Urine < 2.0 mg/dL (<2.0)
[2019-07-16 06:33] LABS: WBC,Urine > 182.0 /HPF (0.0-6.0)
[2019-07-16] MEDS: NACL 0.9% 1000 ML 1,000 ML IV SCH ×7 (06:51→19:48)
[2019-07-16] MEDS ORDERED: NACL 0.9% 1000 ML 1,000 ML ONE (06:54)
--- NOTE | 2019-07-16 07:05 | Cat Scan Report ---
CT right foot without contrast INDICATION : r foot infection. TECHNIQUE: Axial imaging performed through the right foot without the use of contrast. All CT scans at this location are performed using CT dose reduction for ALARA by means of automated exposure cont rol. COMPARISON: None FINDINGS: There is mild soft tissue swelling especially along the dorsum of the forefoot with no foca l soft tissue wound, subcutaneous gas, or collection identified. There is no acute osseous abnormalit y or significant degenerative change. IMPRESSION: Mild soft tissue swelling particularly about the forefoot. Otherwise unremarkable exam. Signer Name: Bennett Herr MD Signed: 07/16/2019 7:00 AM Workstation Name: [id number]
[2019-07-16] MEDS: DILAUDID IV PRN ×2 (07:59→21:18)
--- NOTE | 2019-07-16 09:45 | Consultation ---
History of Present Illness Consult date: 07/16/19 Reason for consult: wound care Requesting physician: ALETA SELF Chief complaint: right foot infection - History of present illness History of present illness: 44yo F with a h/o bipolar disorder presents with multiple complaints to the ED last night. Pt noted to be hypotensive and admitted to ICU. Pt reports that she has had a right foot infection since June 29. It began on the right great toe. She was given Augmentin for that. She was able to pop it and self medica shade with [id number] medications. Since that time she developed erythema on the adjacent toe and the dorsum of the foot. She has not been feeling well. He has been having body aches, nausea, vomiting. Also reports abdominal discomfort. Past History Past Medical History: other (Bipolar) Past Surgical History: Other (eye surgery) Social history: smoking. denies: alcohol abuse, prescription drug abuse, IV drug use Family history: no significant family history Medications and Allergies Allergies Allergy/AdvReac Type Severity Reaction Status Date / Time latex Allergy Anaphylaxis Verified 06/28/19 17:11 tramadol [From Ultram] Allergy Unknown Verified 06/28/19 17:10 ketorolac [From Toradol] AdvReac Seizure Verified 06/28/19 17:10 prochlorperazine AdvReac Unknown Verified 06/28/19 17:11 [From Compazine] Home Medications Medication Instructions Recorded Confirmed Last Taken Type No Known Home Medications [No 07/16/19 07/16/19 Unknown History Reported Home Medications] Active Meds: Active Medications Acetaminophen (Tylenol) 650 mg PO Q4H PRN PRN Reason: Pain MILD(1-3)/Fever >100.5/WHALEN Enoxaparin Sodium (Lovenox) 30 mg SUB-Q QDAY KASIE Hydromorphone HCl (Dilaudid) 0.25 mg IV Q3H PRN PRN Reason: Pain, Moderate (4-6) Last Admin: 07/16/19 07:59 Dose: 0.25 mg Documented by: Norepinephrine (Levophed Drip 4 Mg/Ns 250 Ml) 4 mg in 250 mls @ 7.5 mls/hr IV TITR KAISE; Protocol Last Titration: 07/16/19 07:05 Dose: 10 mcg/min, 37.5 mls/hr Documented by: Cefepime HCl (Maxipime/Ns 2 Gm/100 Ml) 2 gm in 100 mls @ 200 mls/hr IV Q12H KASIE; Protocol Sodium Chloride (Nacl 0.9% 1000 Ml) 1,000 mls @ 150 mls/hr IV DIRECT KASIE Last Admin: 07/16/19 06:51 Dose: 150 mls/hr Documented by: Nicotine (Habitrol) 14 mg TD QDAY KASIE Ondansetron HCl (Zofran) 4 mg IV Q8H PRN PRN Reason: Nausea And Vomiting Oxycodone/Acetaminophen (Percocet 5/325) 1 tab PO Q6H PRN PRN Reason: Pain, Moderate (4-6) Sodium Chloride (Sodium Chloride Flush Syringe 10 Ml) 10 ml IV BID KASIE Sodium Chloride (Sodium Chloride Flush Syringe 10 Ml) 10 ml IV PRN PRN PRN Reason: LINE FLUSH Review of Systems - Constitutional fever, chills, weakness - Cardiovascular no chest pain - Respiratory no cough, no shortness of breath - Gastrointestinal abdominal pain, nausea, vomiting - Muskuloskeletal low back pain right: foot pain, foot swelling - Integumentary redness, wounds, boils, foot/leg ulcers Exam Vital Signs Temp Pulse Resp BP Pulse Ox 98.1 F 120 H 18 79/52 99 07/16/19 01:45 07/16/19 01:45 07/16/19 01:45 07/16/19 01:45 07/16/19 01:45 - General physical appearance Positive: no distress, no pain, other (pleasant) - Eyes Positive: other (pupils are pinpoint) - Respiratory Positive: normal expansion, normal respiratory effort - Extremities Extremities: pulses intact, normal temperature Extremity abnormal: ulceration (noted on the right great toe. No drainage. ), erythema (mild - mostly on the 2nd right toe. less so on distal dorsum of the foot. ), other (small area of fluctuance on dorsal aspect of right 2nd toe. No other areas of fluctuance. No obvious areas of tenderness. ) Peripheral Pulses: within normal limits - Integumentary other (see above) - Neurologic Neurologic: alert and oriented to time, place and person - Psychiatric Psychiatric: appropriate mood/affect, intact judgment & insight, cooperative Results - Labs 07/16/19 02:01 07/16/19 02:01 Abnormal lab results 07/16/19 07/16/19 07/16/19 Range/Units 02:01 02:01 02:01 WBC 11.7 H (4.5-11.0) K/mm3 Plt Count 101 L (140-440) K/mm3 Seg Neuts % (Manual) 92.0 H (40.0-70.0) % Lymphocytes % (Manual) 5.0 L (13.4-35.0) % Seg Neutrophils # Man 10.8 H (1.8-7.7) K/mm3 Lymphocytes # (Manual) 0.6 L (1.2-5.4) K/mm3 PT 15.2 H (12.2-14.9) Sec. INR 1.23 H (0.87-1.13) Carbon Dioxide 18 L (22-30) mmol/L BUN 46 H (7-17) mg/dL Creatinine 2.2 H (0.7-1.2) mg/dL Glucose 116 H (65-100) mg/dL Lactic Acid (0.7-2.0) mmol/L AST 63 H (5-40) units/L ALT 125 H (7-56) units/L Total Protein 6.2 L (6.3-8.2) g/dL Albumin 2.8 L (3.9-5) g/dL Lipase (13-60) units/L Urine WBC (Auto) (0.0-6.0) /HPF U Epithel Cells (Auto) (0-13.0) /HPF 07/16/19 07/16/19 07/16/19 Range/Units 02:16 02:43 04:07 WBC (4.5-11.0) K/mm3 Plt Count (140-440) K/mm3 Seg Neuts % (Manual) (40.0-70.0) % Lymphocytes % (Manual) (13.4-35.0) % Seg Neutrophils # Man (1.8-7.7) K/mm3 Lymphocytes # (Manual) (1.2-5.4) K/mm3 PT (12.2-14.9) Sec. INR (0.87-1.13) Carbon Dioxide (22-30) mmol/L BUN (7-17) mg/dL Creatinine (0.7-1.2) mg/dL Glucose (65-100) mg/dL Lactic Acid 2.10 H* 2.30 H* (0.7-2.0) mmol/L AST (5-40) units/L ALT (7-56) units/L Total Protein (6.3-8.2) g/dL Albumin (3.9-5) g/dL Lipase 6 L (13-60) units/L Urine WBC (Auto) (0.0-6.0) /HPF U Epithel Cells (Auto) (0-13.0) /HPF 07/16/19 07/16/19 Range/Units 05:47 05:59 WBC (4.5-11.0) K/mm3 Plt Count (140-440) K/mm3 Seg Neuts % (Manual) (40.0-70.0) % Lymphocytes % (Manual) (13.4-35.0) % Seg Neutrophils # Man (1.8-7.7) K/mm3 Lymphocytes # (Manual) (1.2-5.4) K/mm3 PT 16.3 H (12.2-14.9) Sec. INR 1.35 H (0.87-1.13) Carbon Dioxide (22-30) mmol/L BUN (7-17) mg/dL Creatinine (0.7-1.2) mg/dL Glucose (65-100) mg/dL Lactic Acid (0.7-2.0) mmol/L AST (5-40) units/L ALT (7-56) units/L Total Protein (6.3-8.2) g/dL Albumin (3.9-5) g/dL Lipase (13-60) units/L Urine WBC (Auto) > 182.0 H (0.0-6.0) /HPF U Epithel Cells (Auto) 21.0 H (0-13.0) /HPF Diabetes panel 07/16/19 07/16/19 Range/Units 02:01 05:47 Sodium 137 (137-145) mmol/L Potassium 4.0 (3.6-5.0) mmol/L Chloride 105.2 (98-107) mmol/L Carbon Dioxide 18 L (22-30) mmol/L BUN 46 H (7-17) mg/dL Creatinine 2.2 H (0.7-1.2) mg/dL Glucose 116 H (65-100) mg/dL Hemoglobin A1c 4.9 (4-6) % Calcium 8.6 (8.4-10.2) mg/dL AST 63 H (5-40) units/L ALT 125 H (7-56) units/L Alkaline Phosphatase 73 (35-129) units/L Total Protein 6.2 L (6.3-8.2) g/dL Albumin 2.8 L (3.9-5) g/dL Calcium panel 07/16/19 Range/Units 02:01 Calcium 8.6 (8.4-10.2) mg/dL Albumin 2.8 L (3.9-5) g/dL Pituitary panel 07/16/19 Range/Units 02:01 Sodium 137 (137-145) mmol/L Potassium 4.0 (3.6-5.0) mmol/L Chloride 105.2 (98-107) mmol/L Carbon Dioxide 18 L (22-30) mmol/L BUN 46 H (7-17) mg/dL Creatinine 2.2 H (0.7-1.2) mg/dL Glucose 116 H (65-100) mg/dL Calcium 8.6 (8.4-10.2) mg/dL Adrenal panel 07/16/19 Range/Units 02:01 Sodium 137 (137-145) mmol/L Potassium 4.0 (3.6-5.0) mmol/L Chloride 105.2 (98-107) mmol/L Carbon Dioxide 18 L (22-30) mmol/L BUN 46 H (7-17) mg/dL Creatinine 2.2 H (0.7-1.2) mg/dL Glucose 116 H (65-100) mg/dL Calcium 8.6 (8.4-10.2) mg/dL Total Bilirubin 0.40 (0.1-1.2) mg/dL AST 63 H (5-40) units/L ALT 125 H (7-56) units/L Alkaline Phosphatase 73 (35-129) units/L Total Protein 6.2 L (6.3-8.2) g/dL Albumin 2.8 L (3.9-5) g/dL - Imaging Additional studies: CT lower extremity - reviewed report and images Assessment and Plan - Patient Problems (1) Cellulitis of left foot Current Visit: Yes Status: Acute Plan to address problem: Pt with mild infection of right foot. Hard to imagine this is the cause of her instability. Her exam is fairly unimpressive. She does have an approximately 1 cm area of fluctuance on the second toe. At most, she may have 1-2 mL of fluid. She did not display any obvious tenderness on palpation. There is no ascending erythema. There is no significant edema. At this point, I would treat her with IV antibiotics and see how she progresses. If the foot shows signs of worsening, I will do a bedside incision and drainage. Rec: 1) keep right foot elevated 2) Warm compress to right second toe 3) IV Abx. Will follow along. Please call with questions. Time=30min
[2019-07-16] MEDS: HABITROL TD SCH (10:39)
[2019-07-16] MEDS: LOVENOX SUB-Q SCH (10:40)
[2019-07-16] MEDS: SODIUM CHLORIDE FLUSH SYRINGE 10 ML IV SCH ×2 (10:45→22:37)
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
[2019-07-16] MEDS: PERCOCET 5/325 PO PRN (12:33)
[2019-07-16] MEDS: ZOFRAN IV PRN ×2 (12:34→21:16)
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
[2019-07-16] MEDS: MAXIPIME/NS 2 GM/100 ML 2 GM/100 ML BAG IV SCH (16:26)
[2019-07-16 16:38] LABS: Creatinine,Urine 76.6 mg/dL (0.1-20.0)
--- NOTE | 2019-07-16 19:20 | Consultation ---
History of Present Illness - Reason for Consult Consult date: 07/16/19 acute renal failure Requesting physician: ALETA SELF - History of Present Illness This is a 44 yo F With past medical history of bipolar disorder, who presents to [facility] with abdominal pain fever and right foot pain. She was seen on 06/28 in ER for insect bite on her right big toe, for which she was treated with 10 days of antibiotics with Augmentin. However patient returned to ER c/o intermittent fevers, body aches, weakness and nausea and malaise generalized abdominal pain for worsening redness of her right foot. Labs showed elevated WBC > 11.7, along with signs of UTI with UA showing > 182 WBC/HPF. CT A/P also showed L perinephric stranding. Pt also showed signs of acute renal failure with BUN/Cr at 46/2.2mg/dl and lactic acidosis. pt is admitted for possible sepsis and renal consult is requested for management of CRISTIAN. pt denies previous history of renal disease, no recent NSAIDs or IV contrast exposure reported. Past History Past Medical History: other (Bipolar) Past Surgical History: Other (eye surgery) Social history: smoking. denies: alcohol abuse, prescription drug abuse, IV drug use Family history: no significant family history Medications and Allergies Allergies Allergy/AdvReac Type Severity Reaction Status Date / Time latex Allergy Anaphylaxis Verified 06/28/19 17:11 tramadol [From Ultram] Allergy Unknown Verified 06/28/19 17:10 ketorolac [From Toradol] AdvReac Seizure Verified 06/28/19 17:10 prochlorperazine AdvReac Unknown Verified 06/28/19 17:11 [From Compazine] Home Medications Medication Instructions Recorded Confirmed Last Taken Type No Known Home Medications [No 07/16/19 07/16/19 Unknown History Reported Home Medications] Active Meds: Active Medications Acetaminophen (Tylenol) 650 mg PO Q4H PRN PRN Reason: Pain MILD(1-3)/Fever >100.5/WHALEN Enoxaparin Sodium (Lovenox) 30 mg SUB-Q QDAY [facility] Last Admin: 07/16/19 10:40 Dose: 30 mg Documented by: Hydromorphone HCl (Dilaudid) 0.25 mg IV Q3H PRN PRN Reason: Pain, Moderate (4-6) Last Admin: 07/16/19 07:59 Dose: 0.25 mg Documented by: Norepinephrine (Levophed Drip 4 Mg/Ns 250 Ml) 4 mg in 250 mls @ 7.5 mls/hr IV TITR KASIE; Protocol Last Titration: 07/16/19 17:42 Dose: 25 mcg/min, 93.75 mls/hr Documented by: Cefepime HCl (Maxipime/Ns 2 Gm/100 Ml) 2 gm in 100 mls @ 200 mls/hr IV Q12H KASIE; Protocol Last Admin: 07/16/19 16:26 Dose: 200 mls/hr Documented by: Sodium Chloride (Nacl 0.9% 1000 Ml) 1,000 mls @ 150 mls/hr IV DIRECT KASIE Last Admin: 07/16/19 06:51 Dose: 150 mls/hr Documented by: Sodium Chloride (Nacl 0.9% 1000 Ml) 1,000 mls @ 0 mls/hr IV ONCE KASIE Stop: 07/17/19 12:01 Last Admin: 07/16/19 13:58 Dose: 999 mls/hr Documented by: Sodium Chloride (Nacl 0.9% 1000 Ml) 1,000 mls @ 999 mls/hr IV BOLUS KASIE Stop: 07/18/19 17:04 Last Admin: 07/16/19 18:48 Dose: 999 mls/hr Documented by: Nicotine (Habitrol) 14 mg TD QDAY [facility] Last Admin: 07/16/19 10:39 Dose: 14 mg Documented by: Ondansetron HCl (Zofran) 4 mg IV Q8H PRN PRN Reason: Nausea And Vomiting Last Admin: 07/16/19 12:34 Dose: 4 mg Documented by: Oxycodone/Acetaminophen (Percocet 5/325) 1 tab PO Q6H PRN PRN Reason: Pain, Moderate (4-6) Last Admin: 07/16/19 12:33 Dose: 1 tab Documented by: Sodium Chloride (Sodium Chloride Flush Syringe 10 Ml) 10 ml IV BID KASIE Last Admin: 07/16/19 10:45 Dose: 10 ml Documented by: Sodium Chloride (Sodium Chloride Flush Syringe 10 Ml) 10 ml IV PRN PRN PRN Reason: LINE FLUSH Review of Systems Constitutional: fever, chills, fatigue, weakness, malaise Exam - Vital Signs Vital signs: Vital Signs Temp Pulse Resp BP Pulse Ox 98.1 F 120 H 18 79/52 99 07/16/19 01:45 07/16/19 01:45 07/16/19 01:45 07/16/19 01:45 07/16/19 01:45 - General Appearance General appearance: well-developed, well-nourished, appears stated age EENT: ATNC, PERRL, mucous membranes moist Neck: Present: neck supple Respiratory: Clear to Ascultation Heart: regular, S1S2 Gastrointestinal: Present: normal Integumentary: no rash, other (no edema ) Neurologic: no focal deficit, alert and oriented x3, strength 5/5, CN 3-12 intact Psychiatric: mood/affect appropriate, cooperative Results - Lab Results 07/16/19 02:01 07/16/19 02:01 Most recent lab results Calcium 8.6 mg/dL (8.4-10.2) 07/16/19 02:01 76.6 mg/dL (0.1-20.0) H 07/16/19 14:30 39 mmol/L 07/16/19 14:30 Laboratory Tests 07/16/19 07/16/19 07/16/19 02:01 02:01 02:01 PT INR APTT VBG pH 7.326 Hemoglobin A1c Lactic Acid 2.00 AST 63 H ALT 125 H Alkaline Phosphatase 73 Total Protein 6.2 L Albumin 2.8 L Albumin/Globulin Ratio 0.8 Lipase HCG, Quant Ur Leukocyte Esterase Urine WBC (Auto) Urine RBC (Auto) U Epithel Cells (Auto) Urine Creatinine Urine Sodium 07/16/19 07/16/19 07/16/19 02:16 02:16 04:07 PT INR APTT VBG pH Hemoglobin A1c Lactic Acid 2.30 H* AST ALT Alkaline Phosphatase Total Protein Albumin Albumin/Globulin Ratio Lipase 6 L HCG, Quant 0.920 Ur Leukocyte Esterase Urine WBC (Auto) Urine RBC (Auto) U Epithel Cells (Auto) Urine Creatinine Urine Sodium 07/16/19 07/16/19 07/16/19 05:47 05:47 05:59 PT 16.3 H INR 1.35 H APTT 32.4 VBG pH Hemoglobin A1c 4.9 Lactic Acid AST ALT Alkaline Phosphatase Total Protein Albumin Albumin/Globulin Ratio Lipase HCG, Quant Ur Leukocyte Esterase Lg Urine WBC (Auto) > 182.0 H Urine RBC (Auto) 42.0 U Epithel Cells (Auto) 21.0 H Urine Creatinine Urine Sodium 07/16/19 14:30 PT INR APTT VBG pH Hemoglobin A1c Lactic Acid AST ALT Alkaline Phosphatase Total Protein Albumin Albumin/Globulin Ratio Lipase HCG, Quant Ur Leukocyte Esterase Urine WBC (Auto) Urine RBC (Auto) U Epithel Cells (Auto) Urine Creatinine 76.6 H Urine Sodium 39 Assessment and Plan - Patient Problems (1) Acute renal failure Current Visit: Yes Status: Acute Plan to address problem: CRISTIAN likely due to pre-renal azotemia in the setting of pyelonephrtis/sepsis. acute ATN cannot be ruled out. cont IV NS at 150ml/hr, with vasopressor support to maintain MAP > 65mmHg. avoid nephrotoxins,, NSAIDS, IV contrast. dose ABXs for current eGFR. will monitor lytes renal parameters closely and make further recommendations. (2) Septic shock Current Visit: Yes Status: Acute Plan to address problem: due to underlying pyelonephritis. cont fluid resuscitation and vasopresso support with levophed to maintain MAP > 65mmHg. ABX as per ID (3) Acute pyelonephritis Current Visit: Yes Status: Acute Plan to address problem: cont IV ABX as per ID recommendations (4) Elevated LFTs Current Visit: Yes Status: Acute Plan to address problem: likely due to sepsis, monitor CMP (5) Lactic acidosis Current Visit: Yes Status: Acute Plan to address problem: monitor LA level on IVF/levophed.
--- NOTE | 2019-07-16 19:43 | Ultrasound Report ---
Renal ultrasound INDICATION: Acute renal failure. Hydronephrosis. FINDINGS: Both kidneys appear mildly enlarged measuring 14 cm craniocaudal. There is mild left hydron ephrosis but no evidence of right-sided hydronephrosis. Urinary bladder is partially fluid distended. IMPRESSION: Mild enlargement of both kidneys with mild left hydronephrosis, as above. Signer Name: Bethel Nicholas MD Signed: 07/16/2019 7:38 PM Workstation Name: [id number]
--- NOTE | 2019-07-16 19:48 | Ultrasound Report ---
Transvaginal pelvic ultrasound INDICATION: Left lower quadrant pain TECHNIQUE: Transvaginal and transabdominal pelvic exam performed. FINDINGS: The uterus measures 6.1 x 4.1 x 5.5 cm. The endometrial thickness is within normal limits a t 12 mm. There is minimal free pelvic fluid. There are cysts identified within both ovaries. Given th e patient's body habitus there appear to be a possible underlying nodular component within the left o vary that measures almost 2 cm in diameter. IMPRESSION: Possible solid component within the left ovary measuring 2 cm in diameter which demonstra shade minimal increased Doppler flow. This finding corresponds to the CT findings on 07/16/2019 and coul d represent a complex cyst or solid mass. Several minimally complex cysts are present within the righ t ovary. Close attention on short-term interval follow-up recommended. Signer Name: Bethel Nicholas MD Signed: 07/16/2019 7:43 PM Workstation Name: [id number]
[2019-07-16] MEDS: LEVOPHED 8 MG in NACL 0.9% 250ML 242 ML IV SCH (22:28)
[2019-07-16] MEDS ORDERED: PROVENTIL IH PRN (22:48)
--- NOTE | 2019-07-16 23:00 | Progress Note ---
Assessment and Plan Assessment and plan: 44-year-old woman who presents with right foot cellulitis failed outpatient antibiotics, presents with worsening sepsis and hypotension. Patient presented hospital with fever, generalized weakness, abdominal pain and right foot pain CT abdomen and pelvis Left-sided perinephric stranding, complex cyst versus mass in left ovary, 5 mm right middle lung nodule Severe sepsis with organ failure/Septic shock/right foot infection/pyelonephritis IV fluids, IV pressors Sepsis protocol, blood cultures, CT scan lower extremity, MRI right foot, concern for abscess and for osteomyelitis, general surgery consult -abscess involving the first and second toe of the right foot, may benefit from drainage -Follow up urine cultures, continue. Antibiotics Acute kidney injury due to ATN IV fluids, on pressors, nephrology consult monitor renal function Metabolic acidosis give some sodium bicarb Tobacco abuse Smoking cessation counseling, nicotine patches Preventative health counseling performed for 17 minutes Left ovarian mass versus cyst? Pelvic and transvaginal ultrasound Bipolar disorder Not currently on any meds at home DVT prophylaxis; Lovenox critical care time additional 35 minutes History Interval history: Patient seen and examined, lethargic but no acute distress, still on pressors Hospitalist Physical - Physical exam Narrative exam: General appearance: Present: no acute distress, well-nourished - EENT Eyes: Present: PERRL ENT: hearing intact, clear oral mucosa - Neck Neck: Present: supple, normal ROM - Respiratory Respiratory effort: normal Respiratory: bilateral: CTA - Cardiovascular Heart Sounds: Present: S1 & S2. Absent: rub, click - Extremities Extremities: pulses symmetrical Extremity abnormal: edema (right lower extremity), erythema, tenderness, other (fluctuance of 1st and second Right toes) Peripheral Pulses: within normal limits - Abdominal General gastrointestinal: Present: soft, non-tender, non-distended, normal bowel sounds Female genitourinary: Present: normal - Integumentary Integumentary: Present: clear, warm, dry - Musculoskeletal Musculoskeletal: gait normal, strength equal bilaterally - Psychiatric Psychiatric: appropriate mood/affect, intact judgment & insight - Neurologic Neurologic: CNII-XII intact, moves all extremities - Constitutional Vitals: Temp Pulse Resp BP Pulse Ox 97.7 F 115 H 22 117/64 88 07/16/19 20:00 07/16/19 22:15 07/16/19 22:15 07/16/19 22:15 07/16/19 22:15 General appearance: Present: no acute distress, well-nourished Results - Labs CBC & Chem 7: 07/17/19 03:40 07/17/19 03:40 Labs: Laboratory Last Values WBC 11.7 K/mm3 (4.5-11.0) H 07/16/19 02:01 RBC 3.98 M/mm3 (3.65-5.03) 07/16/19 02:01 Hgb 12.4 gm/dl (10.1-14.3) 07/16/19 02:01 Hct 35.9 % (30.3-42.9) 07/16/19 02:01 MCV 90 fl (79-97) 07/16/19 02:01 MCH 31 pg (28-32) 07/16/19 02:01 MCHC 34 % (30-34) 07/16/19 02:01 RDW 14.0 % (13.2-15.2) 07/16/19 02:01 Plt Count 101 K/mm3 (140-440) L 07/16/19 02:01 Add Manual Diff Complete 07/16/19 02:01 Total Counted 100 07/16/19 02:01 Seg Neuts % (Manual) 92.0 % (40.0-70.0) H 07/16/19 02:01 0 % 07/16/19 02:01 5.0 % (13.4-35.0) L 07/16/19 02:01 Reactive Lymphs % (Man) 0 % 07/16/19 02:01 3.0 % (0.0-7.3) 07/16/19 02:01 0 % (0.0-4.3) 07/16/19 02:01 0 % (0.0-1.8) 07/16/19 02:01 0 % 07/16/19 02:01 0 % 07/16/19 02:01 0 % 07/16/19 02:01 0 % 07/16/19 02:01 Nucleated RBC % Not Reportable 07/16/19 02:01 Seg Neutrophils # Man 10.8 K/mm3 (1.8-7.7) H 07/16/19 02:01 Band Neutrophils # 0.0 K/mm3 07/16/19 02:01 0.6 K/mm3 (1.2-5.4) L 07/16/19 02:01 Abs React Lymphs (Man) 0.0 K/mm3 07/16/19 02:01 0.4 K/mm3 (0.0-0.8) 07/16/19 02:01 0.0 K/mm3 (0.0-0.4) 07/16/19 02:01 0.0 K/mm3 (0.0-0.1) 07/16/19 02:01 0.0 K/mm3 07/16/19 02:01 0.0 K/mm3 07/16/19 02:01 0.0 K/mm3 07/16/19 02:01 Blast Cells # 0.0 K/mm3 07/16/19 02:01 WBC Morphology Not Reportable 07/16/19 02:01 Hypersegmented Neuts Not Reportable 07/16/19 02:01 Hyposegmented Neuts Not Reportable 07/16/19 02:01 Hypogranular Neuts Not Reportable 07/16/19 02:01 Not Reportable 07/16/19 02:01 Not Reportable 07/16/19 02:01 Not Reportable 07/16/19 02:01 Not Reportable 07/16/19 02:01 Not Reportable 07/16/19 02:01 Not Reportable 07/16/19 02:01 Consistent w auto 07/16/19 02:01 Not Reportable 07/16/19 02:01 Plt Clumps, EDTA Not Reportable 07/16/19 02:01 Not Reportable 07/16/19 02:01 Not Reportable 07/16/19 02:01 Not Reportable 07/16/19 02:01 Plt Morphology Comment Not Reportable 07/16/19 02:01 RBC Morphology Not Reportable 07/16/19 02:01 Dimorphic RBCs Not Reportable 07/16/19 02:01 Not Reportable 07/16/19 02:01 Not Reportable 07/16/19 02:01 Not Reportable 07/16/19 02:01 1+ 07/16/19 02:01 Not Reportable 07/16/19 02:01 Not Reportable 07/16/19 02:01 Not Reportable 07/16/19 02:01 Not Reportable 07/16/19 02:01 Not Reportable 07/16/19 02:01 Not Reportable 07/16/19 02:01 Not Reportable 07/16/19 02:01 Not Reportable 07/16/19 02:01 Not Reportable 07/16/19 02:01 Not Reportable 07/16/19 02:01 Not Reportable 07/16/19 02:01 Not Reportable 07/16/19 02:01 Not Reportable 07/16/19 02:01 1+ 07/16/19 02:01 Not Reportable 07/16/19 02:01 Acanthocytes (Spur) Not Reportable 07/16/19 02:01 Rouleaux Not Reportable 07/16/19 02:01 Not Reportable 07/16/19 02:01 Not Reportable 07/16/19 02:01 Not Reportable 07/16/19 02:01 Not Reportable 07/16/19 02:01 Hem Pathologist Commnt No 07/16/19 02:01 PT 16.3 Sec. (12.2-14.9) H 07/16/19 05:47 INR 1.35 (0.87-1.13) H 07/16/19 05:47 APTT 32.4 Sec. (24.2-36.6) 07/16/19 05:47 VBG pH 7.326 (7.320-7.420) 07/16/19 02:01 Sodium 137 mmol/L (137-145) 07/16/19 02:01 Potassium 4.0 mmol/L (3.6-5.0) 07/16/19 02:01 Chloride 105.2 mmol/L (98-107) 07/16/19 02:01 Carbon Dioxide 18 mmol/L (22-30) L 07/16/19 02:01 18 mmol/L 07/16/19 02:01 BUN 46 mg/dL (7-17) H 07/16/19 02:01 2.2 mg/dL (0.7-1.2) H 07/16/19 02:01 Estimated GFR 24 ml/min 07/16/19 02:01 21 % 07/16/19 02:01 Glucose 116 mg/dL (65-100) H 07/16/19 02:01 4.9 % (4-6) 07/16/19 05:47 Lactic Acid 1.80 mmol/L (0.7-2.0) 07/16/19 05:28 Calcium 8.6 mg/dL (8.4-10.2) 07/16/19 02:01 0.40 mg/dL (0.1-1.2) 07/16/19 02:01 AST 63 units/L (5-40) H 07/16/19 02:01 ALT 125 units/L (7-56) H 07/16/19 02:01 73 units/L (35-129) 07/16/19 02:01 6.2 g/dL (6.3-8.2) L 07/16/19 02:01 2.8 g/dL (3.9-5) L 07/16/19 02:01 0.8 % 07/16/19 02:01 6 units/L (13-60) L 07/16/19 02:16 HCG, Quant 0.920 mIU/mL (0-4) 07/16/19 02:16 Caity (Yellow) 07/16/19 05:59 Cloudy (Clear) 07/16/19 05:59 5.0 (5.0-7.0) 07/16/19 05:59 Ur Specific [place] 1.015 (1.003-1.030) 07/16/19 05:59 100 mg/dl mg/dL (Negative) 07/16/19 05:59 Neg mg/dL (Negative) 07/16/19 05:59 Neg mg/dL (Negative) 07/16/19 05:59 Mod (Negative) 07/16/19 05:59 Pos (Negative) 07/16/19 05:59 Neg (Negative) 07/16/19 05:59 < 2.0 mg/dL (<2.0) 07/16/19 05:59 Ur Leukocyte Esterase Lg (Negative) 07/16/19 05:59 > 182.0 /HPF (0.0-6.0) H 07/16/19 05:59 42.0 /HPF (0.0-6.0) 07/16/19 05:59 U Epithel Cells (Auto) 21.0 /HPF (0-13.0) H 07/16/19 05:59 1+ /HPF (Negative) 07/16/19 05:59 2+ /HPF 07/16/19 05:59 Ur Transition Epith Cell 1 /HPF 07/16/19 05:59 Few /HPF 07/16/19 05:59 76.6 mg/dL (0.1-20.0) H 07/16/19 14:30 39 mmol/L 07/16/19 14:30 Blood Type O POSITIVE 07/16/19 02:16 Antibody Screen Negative 07/16/19 02:16 Active Medications - Current Medications Current Medications: Generic Name Dose Route Start Last Admin Trade Name Freq PRN Reason Stop Dose Admin Acetaminophen 650 mg 07/16/19 05:36 Tylenol PO Q4H PRN Pain MILD(1-3)/Fever >100.5/WHALEN Albuterol 2.5 mg 07/16/19 22:48 Proventil IH Q4HRT PRN Shortness Of Breath Enoxaparin Sodium 30 mg 07/16/19 10:00 07/16/19 10:40 Lovenox SUB-Q 30 mg QDAY KASIE Administration Hydromorphone HCl 0.25 mg 07/16/19 05:36 07/16/19 21:18 Dilaudid IV 0.25 mg Q3H PRN Administration Pain, Moderate (4-6) Norepinephrine 4 mg in 250 mls @ 7.5 mls/hr 07/16/19 05:00 07/16/19 19:41 Levophed Drip 4 Mg/Ns 250 Ml IV 30 mcg/min TITR KASIE 112.5 mls/hr Administration Protocol 2 MCG/MIN Cefepime HCl 2 gm in 100 mls @ 200 mls/hr 07/16/19 14:00 07/16/19 16:26 Maxipime/Ns 2 Gm/100 Ml IV 200 mls/hr Q12H KASIE Administration Protocol Sodium Chloride 1,000 mls @ 150 mls/hr 07/16/19 06:00 07/16/19 20:04 Nacl 0.9% 1000 Ml IV 0 mls/hr DIRECT KASIE Infusion Sodium Chloride 1,000 mls @ 0 mls/hr 07/16/19 12:00 07/16/19 13:58 Nacl 0.9% 1000 Ml IV 07/17/19 12:01 999 mls/hr ONCE KASIE Administration As Directed Sodium Chloride 1,000 mls @ 999 mls/hr 07/16/19 16:03 07/16/19 18:48 Nacl 0.9% 1000 Ml IV 07/18/19 17:04 999 mls/hr BOLUS KASIE Administration Vasopressin 20 unit/ Sodium 101 mls @ 9.09 mls/hr 07/16/19 20:00 Chloride IV TITR KASIE Protocol 0.03 UNITS/MIN Norepinephrine 8 mg/ Sodium 250 mls @ 3.75 mls/hr 07/16/19 21:00 07/16/19 22:28 Chloride IV 30 mcg/min TITR KASIE 56.25 mls/hr Administration Protocol 2 MCG/MIN Nicotine 14 mg 07/16/19 10:00 07/16/19 10:39 Habitrol TD 14 mg QDAY KASIE Administration Ondansetron HCl 4 mg 07/16/19 05:36 07/16/19 21:16 Zofran IV 4 mg Q8H PRN Administration Nausea And Vomiting Oxycodone/Acetaminophen 1 tab 07/16/19 05:36 07/16/19 12:33 Percocet 5/325 PO 1 tab Q6H PRN Administration Pain, Moderate (4-6) Sodium Chloride 10 ml 07/16/19 10:00 07/16/19 22:37 Sodium Chloride Flush Syringe 10 Ml IV 10 ml BID KASIE Administration Sodium Chloride 10 ml 07/16/19 05:36 Sodium Chloride Flush Syringe 10 Ml IV PRN PRN LINE FLUSH
--- NOTE | 2019-07-16 23:03 | Event Note ---
Date: 07/16/19 Patient seen and examined, resting but still on pressors. No chest pain at this time. Discussed with Nephrology
--- NOTE | 2019-07-17 00:06 | XRay Report ---
ABDOMEN 2 VIEW(S) INDICATION / CLINICAL INFORMATION: Abdominal pain.. COMPARISON: CT abdomen/pelvis from today FINDINGS: TUBES / LINES: None. BOWEL GAS PATTERN: No significant abnormality. FREE AIR / EXTRALUMINAL GAS: None seen. ADDITIONAL FINDINGS: No significant additional findings. IMPRESSION: 1. No significant abnormality. Signer Name: Bennett Herr MD Signed: 07/17/2019 12:02 AM Workstation Name: [id number]
[2019-07-17] MEDS ORDERED: SODIUM BICARBONATE 150 MEQ in D5W 1,000 ML IV SCH (00:30)
[2019-07-17] MEDS ORDERED: HALDOL IV ONE (00:32)
[2019-07-17] MEDS ORDERED: BENADRYL IV ONE (00:48)
[2019-07-17 00:50] LABS: Calcium 5.7 mg/dL (8.4-10.2)
--- NOTE | 2019-07-17 01:37 | XRay Report ---
CHEST 1 VIEW INDICATION: Dyspnea. COMPARISON: Earlier today FINDINGS: Support devices: Stable right IJ CVL with tip at the cavoatrial junction. Heart: Within normal limits. Lungs/Pleura: New moderate interstitial edema and small bilateral effusions. Additional findings: None. IMPRESSION: 1. Significantly worsened exam. Signer Name: Bennett Herr MD Signed: 07/17/2019 1:32 AM Workstation Name: [id number]
[2019-07-17] MEDS ORDERED: LASIX IV ONE (02:14)
[2019-07-17] MEDS ORDERED: ATIVAN IV ONE (02:18)
[2019-07-17] MEDS: LEVOPHED 8 MG in NACL 0.9% 250ML 242 ML IV SCH ×5 (02:19→20:50)
[2019-07-17] MEDS: MAXIPIME/NS 2 GM/100 ML 2 GM/100 ML BAG IV SCH (02:37)
--- NOTE | 2019-07-17 03:12 | Procedure Note ---
Date of procedure: 07/17/19 Pre-op diagnosis: pt hypoxic on bipap with pulmonary edema requiring intubation - Intubation Time Out Performed: Yes Sedative: Etomidate Mg Given: 20 Paralytic: Succinylcholine Mg Given: 100 Laryngoscope: Duke Size: 3 ET Tube Size: 7.5 Tube Secured Depth (cm): 22 Tube Secured Location: lips Tube Placement Confirmation: visualized tube passing t, equal breath sounds bilat, no breath sounds over epi, confirmation by capnometr Patient Tolerated Procedure: well Intubation Complications: none
[2019-07-17] MEDS ORDERED: D50W (25GM) Syringe IV PRN (03:17)
[2019-07-17] MEDS ORDERED: VASELINE LIP THERAPY TP PRN (03:18)
[2019-07-17] MEDS ORDERED: ARTIFICIAL TEARS OPHTH OINT OU PRN (03:18)
[2019-07-17] MEDS ORDERED: SUBLIMAZE IV PRN (03:18)
[2019-07-17] MEDS ORDERED: QUELICIN ONE (04:00)
[2019-07-17] MEDS ORDERED: AMIDATE IV ONE (04:00)
--- NOTE | 2019-07-17 04:11 | XRay Report ---
CHEST - 1 VIEW INDICATION: Intubation traacheal COMPARISON: Yesterday FINDINGS: Support devices: Interval intubation with tube at the level the clavicles in satisfactory position. Right IJ line remains in satisfactory position. Heart: Stable cardiomediastinal silhouette. Lungs/pleura: Moderate to severe interstitial/alveolar edema, worsened since earlier today. Additional findings: None. IMPRESSION: Interval intubation with ET tube in satisfactory position. Overall worsened exam. Signer Name: Bennett Herr MD Signed: 07/17/2019 4:07 AM Workstation Name: [id number]
[2019-07-17 04:25] LABS: Hematocrit 39.9 % (30.3-42.9); Hemoglobin 13.1 gm/dl (10.1-14.3); Mean Corpuscular HGB Conc 33 % (30-34); Mean Corpuscular Volume 93 fl (79-97); Platelet Count 116 K/mm3 (140-440); Red Blood Count 4.31 M/mm3 (3.65-5.03); Red Cell Distribution Width 15.1 % (13.2-15.2)
[2019-07-17] MEDS: VERSED IV PRN (04:53)
[2019-07-17] MEDS: MIDAZOLAM 100 MG in NACL 0.9% 80 ML IV SCH (05:04)
[2019-07-17] MEDS: fentaNYL DRIP Premix 2,000 MCG/100 ML BAG IV SCH ×2 (05:15→18:35)
[2019-07-17 05:54] LABS: Basophils % (Manual) 0 % (0.0-1.8); Total Cells Counted 100
[2019-07-17 05:55] LABS: Anisocytosis 1+; Crenated RBC Few; Platelet Estimate Consistent w Auto
[2019-07-17] MEDS ORDERED: LASIX IV SCH (06:00)
--- NOTE | 2019-07-17 06:04 | Progress Note ---
Assessment and Plan Assessment and plan: 44-year-old woman who presents with right foot cellulitis failed outpatient antibiotics, presents with worsening sepsis and hypotension. Patient presented hospital with fever, generalized weakness, abdominal pain and right foot pain CT abdomen and pelvis Left-sided perinephric stranding, complex cyst versus mass in left ovary, 5 mm right middle lung nodule CT right lower extremity; swelling of soft tissue including first and second toe Acute respiratory failure mechanical ventilator less than 96 hours Patient appears to be having ARDS and pulmonary edema -Trial of Lasix, patient intubated with high PEEP, vent management per insecticide expert, IV fluids discontinued Severe sepsis with organ failure/Septic shock/right foot infection/pyelone phritis IV fluids, IV pressors Sepsis protocol -Surgery and platelets appreciated, ID input appreciated, right foot infection is healing, sepsis appears to be from urinary source at this time -Follow up urine cultures, continue. Antibiotics Metabolic acidosis Patient received bicarbonate drip Acute kidney injury due to ATN Patient received several liters of IV fluids, on pressors, nephrology consult appreciated, renal function improved Tobacco abuse Smoking cessation counseling, nicotine patches Preventative health counseling performed for 17 minutes Left ovarian mass versus cyst? Pelvic and transvaginal ultrasound reviewed, would recommend [employer] DIRECTOR consult after acute issues have resolved, patient is currently critically ill Bipolar disorder Not currently on any meds at home, avoid Haldol, as it worsens her agitation and shortness of breath DVT prophylaxis; Lovenox critical care time 35 minutes History Interval history: He was called to bedside by RN multiple times -The patient became agitated after receiving Haldol, and was combative and had to be held on by multiple nurses and restrained. -She was hypoxic on nasal cannula, therefore was put on nonrebreather, but continued to take off the nonrebreather -She was then put on BiPAP and she was agitated and taken off BiPAP. However patient then was desaturating on the BiPAP and patient have worsening hypoxia -ABG was done which showed a metabolic acidosis, and worsening hypoxia, she did not have any carbon dioxide retention Hospitalist Physical - Physical exam Narrative exam: General.: Appears ill, obvious respiratory distress, intubated HEENT: Moist mucous membranes, extraocular muscles intact, no lymphadenopathy Neck: supple Cardiac: S1-S2 heard Lungs: Rhonchorous breath sounds in the lower half of the lungs with real, diminished Abdomen: soft , nontender, nondistended, bowel sounds positive Extremities: Right first and second toe erythema/swelling Skin: Right foot lesion as noted above Neurologic: Patient is sedated, moves extremities Psych: Sedated moves extremities -Chery catheter seen draining clear urine - Constitutional Vitals: Temp Pulse Resp BP Pulse Ox 97.6 F 112 H 22 112/56 95 07/17/19 03:19 07/17/19 05:31 07/17/19 03:30 07/17/19 05:31 07/17/19 05:31 Results - Labs CBC & Chem 7: 07/17/19 03:40 07/17/19 03:40 Labs: Laboratory Last Values WBC 13.2 K/mm3 (4.5-11.0) H 07/17/19 03:40 RBC 4.31 M/mm3 (3.65-5.03) 07/17/19 03:40 Hgb 13.1 gm/dl (10.1-14.3) 07/17/19 03:40 Hct 39.9 % (30.3-42.9) 07/17/19 03:40 MCV 93 fl (79-97) 07/17/19 03:40 MCH 30 pg (28-32) 07/17/19 03:40 MCHC 33 % (30-34) 07/17/19 03:40 RDW 15.1 % (13.2-15.2) 07/17/19 03:40 Plt Count 116 K/mm3 (140-440) L 07/17/19 03:40 Eos % (Auto) Rotary Engraver 07/17/19 03:40 Add Manual Diff Complete 07/17/19 03:40 Total Counted 100 07/17/19 03:40 Seg Neuts % (Manual) 65.0 % (40.0-70.0) 07/17/19 03:40 0 % 07/17/19 03:40 9.0 % (13.4-35.0) L 07/17/19 03:40 Reactive Lymphs % (Man) 0 % 07/17/19 03:40 2.0 % (0.0-7.3) 07/17/19 03:40 24.0 % (0.0-4.3) H 07/17/19 03:40 0 % (0.0-1.8) 07/17/19 03:40 0 % 07/17/19 03:40 0 % 07/17/19 03:40 0 % 07/17/19 03:40 0 % 07/17/19 03:40 Nucleated RBC % Not Reportable 07/17/19 03:40 Seg Neutrophils # Man 8.6 K/mm3 (1.8-7.7) H 07/17/19 03:40 Band Neutrophils # 0.0 K/mm3 07/17/19 03:40 1.2 K/mm3 (1.2-5.4) 07/17/19 03:40 Abs React Lymphs (Man) 0.0 K/mm3 07/17/19 03:40 0.3 K/mm3 (0.0-0.8) 07/17/19 03:40 3.2 K/mm3 (0.0-0.4) H 07/17/19 03:40 0.0 K/mm3 (0.0-0.1) 07/17/19 03:40 0.0 K/mm3 07/17/19 03:40 0.0 K/mm3 07/17/19 03:40 0.0 K/mm3 07/17/19 03:40 Blast Cells # 0.0 K/mm3 07/17/19 03:40 WBC Morphology Not Reportable 07/17/19 03:40 Hypersegmented Neuts Not Reportable 07/17/19 03:40 Hyposegmented Neuts Not Reportable 07/17/19 03:40 Hypogranular Neuts Not Reportable 07/17/19 03:40 Not Reportable 07/17/19 03:40 Not Reportable 07/17/19 03:40 Not Reportable 07/17/19 03:40 Not Reportable 07/17/19 03:40 Not Reportable 07/17/19 03:40 Not Reportable 07/17/19 03:40 Consistent w auto 07/17/19 03:40 Not Reportable 07/17/19 03:40 Plt Clumps, EDTA Not Reportable 07/17/19 03:40 Not Reportable 07/17/19 03:40 Not Reportable 07/17/19 03:40 Not Reportable 07/17/19 03:40 Plt Morphology Comment Not Reportable 07/17/19 03:40 RBC Morphology Not Reportable 07/17/19 03:40 Dimorphic RBCs Not Reportable 07/17/19 03:40 Not Reportable 07/17/19 03:40 Not Reportable 07/17/19 03:40 Not Reportable 07/17/19 03:40 1+ 07/17/19 03:40 Not Reportable 07/17/19 03:40 Not Reportable 07/17/19 03:40 Not Reportable 07/17/19 03:40 Not Reportable 07/17/19 03:40 Not Reportable 07/17/19 03:40 Not Reportable 07/17/19 03:40 Not Reportable 07/17/19 03:40 Not Reportable 07/17/19 03:40 Not Reportable 07/17/19 03:40 Not Reportable 07/17/19 03:40 Not Reportable 07/17/19 03:40 Not Reportable 07/17/19 03:40 Not Reportable 07/17/19 03:40 Few 07/17/19 03:40 Not Reportable 07/17/19 03:40 Acanthocytes (Spur) Not Reportable 07/17/19 03:40 Rouleaux Not Reportable 07/17/19 03:40 Not Reportable 07/17/19 03:40 Not Reportable 07/17/19 03:40 Not Reportable 07/17/19 03:40 Not Reportable 07/17/19 03:40 Hem Pathologist Commnt No 07/17/19 03:40 PT 16.3 Sec. (12.2-14.9) H 07/16/19 05:47 INR 1.35 (0.87-1.13) H 07/16/19 05:47 APTT 32.4 Sec. (24.2-36.6) 07/16/19 05:47 POC ABG pH 7.056 (7.35-7.45) L 07/17/19 04:08 POC ABG pCO2 44.4 (35-45) 07/17/19 04:08 POC ABG pO2 63 (80-105) L 07/17/19 04:08 POC ABG HCO3 12.5 (22-26 mml/L) 07/17/19 04:08 POC ABG Total CO2 14 (23-27mmol/L) 07/17/19 04:08 POC ABG O2 Sat 81 07/17/19 04:08 POC ABG Base Excess -18 ((-2) - (+3)mmol/L) 07/17/19 04:08 VBG pH 7.326 (7.320-7.420) 07/16/19 02:01 100 % 07/17/19 04:08 Sodium 147 mmol/L (137-145) H 07/17/19 03:40 Potassium 4.3 mmol/L (3.6-5.0) 07/17/19 03:40 Chloride 120.2 mmol/L (98-107) H 07/17/19 03:40 Carbon Dioxide 14 mmol/L (22-30) L 07/17/19 03:40 17 mmol/L 07/17/19 03:40 BUN 36 mg/dL (7-17) H 07/17/19 03:40 1.6 mg/dL (0.7-1.2) H 07/17/19 03:40 Estimated GFR 35 ml/min 07/17/19 03:40 23 % 07/17/19 03:40 Glucose 66 mg/dL (65-100) 07/17/19 03:40 POC Glucose 239 (70-105) H 07/17/19 05:45 4.9 % (4-6) 07/16/19 05:47 Lactic Acid 3.20 mmol/L (0.7-2.0) H* 07/17/19 03:40 Calcium 6.0 mg/dL (8.4-10.2) L 07/17/19 03:40 0.40 mg/dL (0.1-1.2) 07/16/19 02:01 AST 63 units/L (5-40) H 07/16/19 02:01 ALT 125 units/L (7-56) H 07/16/19 02:01 73 units/L (35-129) 07/16/19 02:01 6.2 g/dL (6.3-8.2) L 07/16/19 02:01 2.8 g/dL (3.9-5) L 07/16/19 02:01 0.8 % 07/16/19 02:01 6 units/L (13-60) L 07/16/19 02:16 HCG, Quant 0.920 mIU/mL (0-4) 07/16/19 02:16 Caity (Yellow) 07/16/19 05:59 Cloudy (Clear) 07/16/19 05:59 5.0 (5.0-7.0) 07/16/19 05:59 Ur Specific [place] 1.015 (1.003-1.030) 07/16/19 05:59 100 mg/dl mg/dL (Negative) 07/16/19 05:59 Neg mg/dL (Negative) 07/16/19 05:59 Neg mg/dL (Negative) 07/16/19 05:59 Mod (Negative) 07/16/19 05:59 Pos (Negative) 07/16/19 05:59 Neg (Negative) 07/16/19 05:59 < 2.0 mg/dL (<2.0) 07/16/19 05:59 Ur Leukocyte Esterase Lg (Negative) 07/16/19 05:59 > 182.0 /HPF (0.0-6.0) H 07/16/19 05:59 42.0 /HPF (0.0-6.0) 07/16/19 05:59 U Epithel Cells (Auto) 21.0 /HPF (0-13.0) H 07/16/19 05:59 1+ /HPF (Negative) 07/16/19 05:59 2+ /HPF 07/16/19 05:59 Ur Transition Epith Cell 1 /HPF 07/16/19 05:59 Few /HPF 07/16/19 05:59 76.6 mg/dL (0.1-20.0) H 07/16/19 14:30 39 mmol/L 07/16/19 14:30 Random Vancomycin 5.6 ug/mL (0-40.0) 07/17/19 03:40 Blood Type O POSITIVE 07/16/19 02:16 Antibody Screen Negative 07/16/19 02:16 Active Medications - Current Medications Current Medications: Generic Name Dose Route Start Last Admin Trade Name Freq PRN Reason Stop Dose Admin Acetaminophen 650 mg 07/16/19 05:36 Tylenol PO Q4H PRN Pain MILD(1-3)/Fever >100.5/WHALEN Albuterol 2.5 mg 07/16/19 22:48 07/16/19 23:01 Proventil IH 2.5 mg Q4HRT PRN Administration Shortness Of Breath Dextrose 50 ml 07/17/19 03:17 07/17/19 05:30 D50w (25gm) Syringe IV 50 ml PRN PRN Administration Hypoglycemia Enoxaparin Sodium 30 mg 07/16/19 10:00 07/16/19 10:40 Lovenox SUB-Q 30 mg QDAY KASIE Administration Fentanyl 50 mcg 07/17/19 03:18 07/17/19 04:53 Sublimaze IV 50 mcg Q10MIN PRN Administration ANALGESIA Furosemide 40 mg 07/17/19 06:00 Lasix IV 0600,1800 KASIE Hydromorphone HCl 0.25 mg 07/16/19 05:36 07/16/19 21:18 Dilaudid IV 0.25 mg Q3H PRN Administration Pain, Moderate (4-6) Hydrophilic Ointment 1 applic 07/17/19 03:18 Vaseline Lip Therapy TP Q2HR PRN Dry Lips Cefepime HCl 2 gm in 100 mls @ 200 mls/hr 07/16/19 14:00 07/17/19 02:37 Maxipime/Ns 2 Gm/100 Ml IV 200 mls/hr Q12H KASIE Administration Protocol Sodium Chloride 1,000 mls @ 150 mls/hr 07/16/19 06:00 07/17/19 00:35 Nacl 0.9% 1000 Ml IV 0 mls/hr DIRECT KASIE Infusion Sodium Chloride 1,000 mls @ 0 mls/hr 07/16/19 12:00 07/16/19 13:58 Nacl 0.9% 1000 Ml IV 07/17/19 12:01 999 mls/hr ONCE KASIE Administration As Directed Sodium Chloride 1,000 mls @ 999 mls/hr 07/16/19 16:03 07/16/19 18:48 Nacl 0.9% 1000 Ml IV 07/18/19 17:04 999 mls/hr BOLUS KASIE Administration Vasopressin 20 unit/ Sodium 101 mls @ 9.09 mls/hr 07/16/19 20:00 Chloride IV TITR KASIE Protocol 0.03 UNITS/MIN Norepinephrine 8 mg/ Sodium 250 mls @ 3.75 mls/hr 07/16/19 21:00 07/17/19 02:19 Chloride IV 28 mcg/min TITR KASIE 52.5 mls/hr Administration Protocol 2 MCG/MIN Midazolam HCl 100 mg/ Sodium 100 mls @ 2 mls/hr 07/17/19 04:00 07/17/19 05:04 Chloride IV 1 mg/hr TITR KASIE 1 mls/hr Administration Protocol 2 MG/HR Fentanyl Citrate 2,000 mcg in 100 mls @ 3.4 mls/hr 07/17/19 04:00 07/17/19 05:15 Fentanyl Drip Premix IV 1 mcg/kg/hr TITR KASIE 3.4 mls/hr Administration Protocol 1 MCG/KG/HR Midazolam HCl 2 mg 07/17/19 03:18 07/17/19 04:53 Versed IV 2 mg Q10MIN PRN Administration Sedation Multi-Ingred Cream/Lotion/Oil/Oint 1 applic 07/17/19 03:18 Artificial Tears Ophth Oint OU Q4HR PRN Dry Eye(s) Nicotine 14 mg 07/16/19 10:00 07/16/19 10:39 Habitrol TD 14 mg QDAY KASIE Administration Ondansetron HCl 4 mg 07/16/19 05:36 07/16/19 21:16 Zofran IV 4 mg Q8H PRN Administration Nausea And Vomiting Oxycodone/Acetaminophen 1 tab 07/16/19 05:36 07/16/19 12:33 Percocet 5/325 PO 1 tab Q6H PRN Administration Pain, Moderate (4-6) Sodium Chloride 10 ml 07/16/19 10:00 07/16/19 22:37 Sodium Chloride Flush Syringe 10 Ml IV 10 ml BID KASIE Administration Sodium Chloride 10 ml 07/16/19 05:36 Sodium Chloride Flush Syringe 10 Ml IV PRN PRN LINE FLUSH
[2019-07-17] MEDS: Vasostrict 20 UNIT in NACL 0.9% 100 ML IV SCH ×2 (07:53→16:18)
[2019-07-17] MEDS: LOVENOX SUB-Q SCH (09:41)
[2019-07-17] MEDS: PEPCID IV SCH (09:42)
[2019-07-17] MEDS: HABITROL TD SCH (09:42)
[2019-07-17] MEDS: VANCOMYCIN/NS 1 GM/250 ML 1 GM/250 ML BAG IV SCH (09:43)
[2019-07-17] MEDS: NEO-SYNEPHRINE 100 MG in NACL 0.9% 90 ML IV SCH (10:02)
[2019-07-17] MEDS: SODIUM BICARBONATE 150 MEQ in D5W 1,000 ML IV SCH ×2 (10:02→20:57)
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
[2019-07-17 11:08] LABS: ABG Base Excess -11.4 mmol/L (-2.0-3.0); ABG HCO3 16.3 mmol/L (20.0-26.0); ABG Methemoglobin 0.7 % (0.0-1.5); ABG Oxygen Saturation 92.6 % (95.0-99.0); ABG PCO2 43.6 mm Hg; ABG PO2 67.5 mm Hg (80.0-90.0)
[2019-07-17 11:14] LABS: ABG PH 7.192 pH Units (7.350-7.450)
[2019-07-17] MEDS: SODIUM CHLORIDE FLUSH SYRINGE 10 ML IV SCH ×2 (12:04→21:40)
--- NOTE | 2019-07-17 12:51 | Consultation ---
History of Present Illness - Reason for Consult Consult date: 07/17/19 - History of Present Illness new to our service This is a 44 yo F With past medical history of bipolar disorder, who pre sents to [facility] with abdominal pain fever and right foot pain. She was seen on 06/28 in ER for insect bite on her right big toe, for which she was treated with 10 days of antibiotics with Augmentin. However patient returned to ER c/o intermittent fevers, body aches, weakness and nausea and malaise gen eralized abdominal pain for worsening redness of her right foot. Labs showed elevated WBC > 11.7, along with signs of UTI with UA showing > 182 WBC/HPF. CT A/P also showed L perinephric stranding. Pt also showed signs of acute renal failure with BUN/Cr at 46/2.2mg/dl. Multiple complaints but found to be hypotensive requiring vasopressor therapypt is admitted for sepsis pt intubated abd soft gordon---clear urine a/p non obstructive small kidney stones on CT no urologic intervention needed Past History Past Medical History: other (Bipolar) Past Surgical History: Other (eye surgery) Social history: smoking. denies: alcohol abuse, prescription drug abuse, IV drug use Family history: no significant family history Medications and Allergies Allergies Allergy/AdvReac Type Severity Reaction Status Date / Time latex Allergy Anaphylaxis Verified 06/28/19 17:11 tramadol [From Ultram] Allergy Unknown Verified 06/28/19 17:10 haloperidol [From Haldol] AdvReac Shortness Verified 07/17/19 05:55 of Breath ketorolac [From Toradol] AdvReac Seizure Verified 06/28/19 17:10 prochlorperazine AdvReac Unknown Verified 06/28/19 17:11 [From Compazine] Home Medications Medication Instructions Recorded Confirmed Last Taken Type No Known Home Medications [No 07/16/19 07/16/19 Unknown History Reported Home Medications] Active Meds: Active Medications Acetaminophen (Tylenol) 650 mg PO Q4H PRN PRN Reason: Pain MILD(1-3)/Fever >100.5/WHALEN Albuterol (Proventil) 2.5 mg IH Q4HRT PRN PRN Reason: Shortness Of Breath Last Admin: 07/16/19 23:01 Dose: 2.5 mg Documented by: Dextrose (D50w (25gm) Syringe) 50 ml IV PRN PRN PRN Reason: Hypoglycemia Last Admin: 07/17/19 05:30 Dose: 50 ml Documented by: Enoxaparin Sodium (Lovenox) 30 mg SUB-Q QDAY KASIE Last Admin: 07/17/19 09:41 Dose: 30 mg Documented by: Famotidine (Pepcid) 20 mg IV DAILY KASIE Last Admin: 07/17/19 09:42 Dose: 20 mg Documented by: Fentanyl (Sublimaze) 50 mcg IV Q10MIN PRN PRN Reason: ANALGESIA Last Admin: 07/17/19 04:53 Dose: 50 mcg Documented by: Hydromorphone HCl (Dilaudid) 0.25 mg IV Q3H PRN PRN Reason: Pain, Moderate (4-6) Last Admin: 07/16/19 21:18 Dose: 0.25 mg Documented by: Hydrophilic Ointment (Vaseline Lip Therapy) 1 applic TP Q2HR PRN PRN Reason: Dry Lips Vasopressin 20 unit/ Sodium (Chloride) 101 mls @ 9.09 mls/hr IV TITR KASIE; P rotocol Last Admin: 07/17/19 07:53 Dose: 0.03 units/min, 9.09 mls/hr Documented by: Norepinephrine 8 mg/ Sodium (Chloride) 250 mls @ 3.75 mls/hr IV TITR KASIE; Protocol Last Admin: 07/17/19 12:04 Dose: 30 mcg/min, 56.25 mls/hr Documented by: Midazolam HCl 100 mg/ Sodium (Chloride) 100 mls @ 2 mls/hr IV TITR KASIE; Protocol Last Admin: 07/17/19 05:04 Dose: 1 mg/hr, 1 mls/hr Documented by: Fentanyl Citrate (Fentanyl Drip Premix) 2,000 mcg in 100 mls @ 3.4 mls/hr IV TITR KASIE; Protocol Last Admin: 07/17/19 05:15 Dose: 1 mcg/kg/hr, 3.4 mls/hr Documented by: Vancomycin HCl (Vancomycin/Ns 1 Gm/250 Ml) 1 gm in 250 mls @ 167.007 mls/hr IV Q24HR KASIE Last Admin: 07/17/19 09:43 Dose: 167.007 mls/hr Documented by: Phenylephrine HCl 100 mg/ (Sodium Chloride) 100 mls @ 3 mls/hr IV TITR KASIE; Protocol Last Titration: 07/17/19 12:05 Dose: 70 mcg/min, 4.2 mls/hr Documented by: Sodium Bicarbonate 150 meq/ (Dextrose) 1,150 mls @ 100 mls/hr IV DIRECT KASIE Last Admin: 07/17/19 10:02 Dose: 100 mls/hr Documented by: Meropenem 1,000 mg/ Sodium (Chloride) 100 mls @ 100 mls/hr IV Q8HR KASIE; Protocol Midazolam HCl (Versed) 2 mg IV Q10MIN PRN PRN Reason: Sedation Last Admin: 07/17/19 04:53 Dose: 2 mg Documented by: Multi-Ingred Cream/Lotion/Oil/Oint (Artificial Tears Ophth Oint) 1 applic OU Q4HR PRN PRN Reason: Dry Eye(s) Nicotine (Habitrol) 14 mg TD QDAY [facility] Last Admin: 07/17/19 09:42 Dose: 14 mg Documented by: Ondansetron HCl (Zofran) 4 mg IV Q8H PRN PRN Reason: Nausea And Vomiting Last Admin: 07/16/19 21:16 Dose: 4 mg Documented by: Oxycodone/Acetaminophen (Percocet 5/325) 1 tab PO Q6H PRN PRN Reason: Pain, Moderate (4-6) Last Admin: 07/16/19 12:33 Dose: 1 tab Documented by: Sodium Chloride (Sodium Chloride Flush Syringe 10 Ml) 10 ml IV BID [facility] Last Admin: 07/17/19 12:04 Dose: 10 ml Documented by: Sodium Chloride (Sodium Chloride Flush Syringe 10 Ml) 10 ml IV PRN PRN PRN Reason: LINE FLUSH Exam - Constitutional Vitals: Temp Pulse Resp BP Pulse Ox 97.9 F 115 H 14 87/57 96 07/17/19 08:00 07/17/19 12:30 07/17/19 12:30 07/17/19 12:30 07/17/19 12:30 Results - Labs CBC & Chem 7: 07/17/19 03:40 07/17/19 03:40 Labs: Abnormal lab results 07/16/19 07/16/19 07/17/19 Range/Units 14:30 23:27 00:03 WBC (4.5-11.0) K/mm3 Plt Count (140-440) K/mm3 Lymphocytes % (Manual) (13.4-35.0) % Eosinophils % (Manual) (0.0-4.3) % Seg Neutrophils # Man (1.8-7.7) K/mm3 Eosinophils # (Manual) (0.0-0.4) K/mm3 POC ABG pH 7.093 L (7.35-7.45) ABG pH (7.350-7.450) pH Units POC ABG pCO2 32.8 L (35-45) POC ABG pO2 66 L (80-105) ABG pO2 (80.0-90.0) mm Hg ABG HCO3 (20.0-26.0) mmol/L ABG O2 Saturation (95.0-99.0) % ABG Base Excess (-2.0-3.0) mmol/L Oxyhemoglobin (95.0-99.0) % Sodium 148 H D (137-145) mmol/L Chloride 120.5 H (98-107) mmol/L Carbon Dioxide 14 L (22-30) mmol/L BUN 35 H (7-17) mg/dL Creatinine 1.5 H (0.7-1.2) mg/dL Glucose 42 L (65-100) mg/dL POC Glucose (70-105) Lactic Acid (0.7-2.0) mmol/L Calcium 5.7 L* D (8.4-10.2) mg/dL Urine Creatinine 76.6 H (0.1-20.0) mg/dL 07/17/19 07/17/19 07/17/19 Range/Units 00:03 03:01 03:29 WBC (4.5-11.0) K/mm3 Plt Count (140-440) K/mm3 Lymphocytes % (Manual) (13.4-35.0) % Eosinophils % (Manual) (0.0-4.3) % Seg Neutrophils # Man (1.8-7.7) K/mm3 Eosinophils # (Manual) (0.0-0.4) K/mm3 POC ABG pH 6.981 L (7.35-7.45) ABG pH (7.350-7.450) pH Units POC ABG pCO2 55.6 H (35-45) POC ABG pO2 (80-105) ABG pO2 (80.0-90.0) mm Hg ABG HCO3 (20.0-26.0) mmol/L ABG O2 Saturation (95.0-99.0) % ABG Base Excess (-2.0-3.0) mmol/L Oxyhemoglobin (95.0-99.0) % Sodium (137-145) mmol/L Chloride (98-107) mmol/L Carbon Dioxide (22-30) mmol/L BUN (7-17) mg/dL Creatinine (0.7-1.2) mg/dL Glucose (65-100) mg/dL POC Glucose 64 L (70-105) Lactic Acid 2.90 H* (0.7-2.0) mmol/L Calcium (8.4-10.2) mg/dL Urine Creatinine (0.1-20.0) mg/dL 07/17/19 07/17/19 07/17/19 Range/Units 03:40 03:40 03:40 WBC 13.2 H (4.5-11.0) K/mm3 Plt Count 116 L (140-440) K/mm3 Lymphocytes % (Manual) 9.0 L (13.4-35.0) % Eosinophils % (Manual) 24.0 H (0.0-4.3) % Seg Neutrophils # Man 8.6 H (1.8-7.7) K/mm3 Eosinophils # (Manual) 3.2 H (0.0-0.4) K/mm3 POC ABG pH (7.35-7.45) ABG pH (7.350-7.450) pH Units POC ABG pCO2 (35-45) POC ABG pO2 (80-105) ABG pO2 (80.0-90.0) mm Hg ABG HCO3 (20.0-26.0) mmol/L ABG O2 Saturation (95.0-99.0) % ABG Base Excess (-2.0-3.0) mmol/L Oxyhemoglobin (95.0-99.0) % Sodium 147 H (137-145) mmol/L Chloride 120.2 H (98-107) mmol/L Carbon Dioxide 14 L (22-30) mmol/L BUN 36 H (7-17) mg/dL Creatinine 1.6 H (0.7-1.2) mg/dL Glucose (65-100) mg/dL POC Glucose (70-105) Lactic Acid 3.20 H* (0.7-2.0) mmol/L Calcium 6.0 L (8.4-10.2) mg/dL Urine Creatinine (0.1-20.0) mg/dL 07/17/19 07/17/19 07/17/19 Range/Units 04:08 05:33 05:45 WBC (4.5-11.0) K/mm3 Plt Count (140-440) K/mm3 Lymphocytes % (Manual) (13.4-35.0) % Eosinophils % (Manual) (0.0-4.3) % Seg Neutrophils # Man (1.8-7.7) K/mm3 Eosinophils # (Manual) (0.0-0.4) K/mm3 POC ABG pH 7.056 L (7.35-7.45) ABG pH (7.350-7.450) pH Units POC ABG pCO2 (35-45) POC ABG pO2 63 L (80-105) ABG pO2 (80.0-90.0) mm Hg ABG HCO3 (20.0-26.0) mmol/L ABG O2 Saturation (95.0-99.0) % ABG Base Excess (-2.0-3.0) mmol/L Oxyhemoglobin (95.0-99.0) % Sodium (137-145) mmol/L Chloride (98-107) mmol/L Carbon Dioxide (22-30) mmol/L BUN (7-17) mg/dL Creatinine (0.7-1.2) mg/dL Glucose (65-100) mg/dL POC Glucose 64 L 239 H (70-105) Lactic Acid (0.7-2.0) mmol/L Calcium (8.4-10.2) mg/dL Urine Creatinine (0.1-20.0) mg/dL 07/17/19 07/17/19 Range/Units 06:51 10:57 WBC (4.5-11.0) K/mm3 Plt Count (140-440) K/mm3 Lymphocytes % (Manual) (13.4-35.0) % Eosinophils % (Manual) (0.0-4.3) % Seg Neutrophils # Man (1.8-7.7) K/mm3 Eosinophils # (Manual) (0.0-0.4) K/mm3 POC ABG pH 7.061 L (7.35-7.45) ABG pH 7.192 L* (7.350-7.450) pH Units POC ABG pCO2 49.0 H (35-45) POC ABG pO2 (80-105) ABG pO2 67.5 L (80.0-90.0) mm Hg ABG HCO3 16.3 L (20.0-26.0) mmol/L ABG O2 Saturation 92.6 L (95.0-99.0) % ABG Base Excess -11.4 L (-2.0-3.0) mmol/L Oxyhemoglobin 91.1 L (95.0-99.0) % Sodium (137-145) mmol/L Chloride (98-107) mmol/L Carbon Dioxide (22-30) mmol/L BUN (7-17) mg/dL Creatinine (0.7-1.2) mg/dL Glucose (65-100) mg/dL POC Glucose (70-105) Lactic Acid (0.7-2.0) mmol/L Calcium (8.4-10.2) mg/dL Urine Creatinine (0.1-20.0) mg/dL
--- NOTE | 2019-07-17 13:00 | Progress Note ---
Assessment and Plan Imp: 1. Acute pyelonephritis with severe sepsis/septic shock 2. ARDS 3. Acute respiratory failure, hypoxia 4. CRISTIAN 5. Lactic acidosis 6. Cellulitis R foot/toe Rec: 1. ABX per ID; f/u E.coli sens. and modify regimen prn 2. ARDSnet protocol -> drop TV to 400mL, increase RR to 26; leave PEEP at 18 and decrease FiO2 to keep sats 88% or >; repeat ABG after making these changes in 1 hour 3. 2 amps of bicarb pushed and resume bicarb drip; avoid Lasix until off pressors unless needed for severe hypoxia; added Neosynephrine & titrate pressors to keep MAP > 65 4. Versed/Fentanyl; soft restraints needed to prevent self-extubation 5. Surgery following; await [employer] eval. 6. DVT and GI PPx; hold off on TFs for now 7. Repeat labs and lactate in AM CCT 31 minutes No family present Subjective Date of service: 07/17/19 Principal diagnosis: Acute respiratory failure Interval history: Events noted. Intubated. On RR 20, PEEP 18, TV of 450mL, and FiO2 of 90%. Sedated on Fentanyl and Versed but arouses and gets agitated. On Levophed, Vasopressin. Active Medications Acetaminophen (Tylenol) 650 mg PO Q4H PRN PRN Reason: Pain MILD(1-3)/Fever >100.5/WHALEN Albuterol (Proventil) 2.5 mg IH Q4HRT PRN PRN Reason: Shortness Of Breath Last Admin: 07/16/19 23:01 Dose: 2.5 mg Documented by: Dextrose (D50w (25gm) Syringe) 50 ml IV PRN PRN PRN Reason: Hypoglycemia Last Admin: 07/17/19 05:30 Dose: 50 ml Documented by: Enoxaparin Sodium (Lovenox) 30 mg SUB-Q QDAY [facility] Last Admin: 07/17/19 09:41 Dose: 30 mg Documented by: Famotidine (Pepcid) 20 mg IV DAILY [facility] Last Admin: 07/17/19 09:42 Dose: 20 mg Documented by: Fentanyl (Sublimaze) 50 mcg IV Q10MIN PRN PRN Reason: ANALGESIA Last Admin: 07/17/19 04:53 Dose: 50 mcg Documented by: Hydromorphone HCl (Dilaudid) 0.25 mg IV Q3H PRN PRN Reason: Pain, Moderate (4-6) Last Admin: 07/16/19 21:18 Dose: 0.25 mg Documented by: Hydrophilic Ointment (Vaseline Lip Therapy) 1 applic TP Q2HR PRN PRN Reason: Dry Lips Vasopressin 20 unit/ Sodium (Chloride) 101 mls @ 9.09 mls/hr IV TITR KASIE; Protocol Last Admin: 07/17/19 16:18 Dose: 0.03 units/min, 9.09 mls/hr Documented by: Norepinephrine 8 mg/ Sodium (Chloride) 250 mls @ 3.75 mls/hr IV TITR KASIE; Protocol Last Admin: 07/17/19 16:16 Dose: 30 mcg/min, 56.25 mls/hr Documented by: Midazolam HCl 100 mg/ Sodium (Chloride) 100 mls @ 2 mls/hr IV TITR KASIE; Protocol Last Admin: 07/17/19 05:04 Dose: 1 mg/hr, 1 mls/hr Documented by: Fentanyl Citrate (Fentanyl Drip Premix) 2,000 mcg in 100 mls @ 3.4 mls/hr IV TITR KASIE; Protocol Last Admin: 07/17/19 18:35 Dose: 2 mcg/kg/hr, 6.8 mls/hr Documented by: Vancomycin HCl (Vancomycin/Ns 1 Gm/250 Ml) 1 gm in 250 mls @ 167.007 mls/hr IV Q24HR KASIE Last Admin: 07/17/19 09:43 Dose: 167.007 mls/hr Documented by: Phenylephrine HCl 100 mg/ (Sodium Chloride) 100 mls @ 3 mls/hr IV TITR KASIE; Protocol Last Titration: 07/17/19 13:48 Dose: 60 mcg/min, 3.6 mls/hr Documented by: Sodium Bicarbonate 150 meq/ (Dextrose) 1,150 mls @ 100 mls/hr IV DIRECT KASIE Last Admin: 07/17/19 10:02 Dose: 100 mls/hr Documented by: Meropenem 1,000 mg/ Sodium (Chloride) 100 mls @ 100 mls/hr IV Q8HR KASIE; Protocol Last Admin: 07/17/19 13:41 Dose: 100 mls/hr Documented by: Midazolam HCl (Versed) 2 mg IV Q10MIN PRN PRN Reason: Sedation Last Admin: 07/17/19 04:53 Dose: 2 mg Documented by: Multi-Ingred Cream/Lotion/Oil/Oint (Artificial Tears Ophth Oint) 1 applic OU Q4HR PRN PRN Reason: Dry Eye(s) Nicotine (Habitrol) 14 mg TD QDAY [facility] Last Admin: 07/17/19 09:42 Dose: 14 mg Documented by: Ondansetron HCl (Zofran) 4 mg IV Q8H PRN PRN Reason: Nausea And Vomiting Last Admin: 07/16/19 21:16 Dose: 4 mg Documented by: Oxycodone/Acetaminophen (Percocet 5/325) 1 tab PO Q6H PRN PRN Reason: Pain, Moderate (4-6) Last Admin: 07/16/19 12:33 Dose: 1 tab Documented by: Sodium Chloride (Sodium Chloride Flush Syringe 10 Ml) 10 ml IV BID [facility] Last Admin: 07/17/19 12:04 Dose: 10 ml Documented by: Sodium Chloride (Sodium Chloride Flush Syringe 10 Ml) 10 ml IV PRN PRN PRN Reason: LINE FLUSH Objective Vital Signs - 12hr 07/17/19 07/17/19 07/17/19 01:15 01:30 01:45 Temperature Pulse Rate 121 H 119 H 115 H Pulse Rate [ From Monitor] Respiratory 19 23 24 Rate Blood Pressure 135/59 120/60 120/60 O2 Sat by Pulse 88 92 95 Oximetry 07/17/19 07/17/19 07/17/19 02:01 02:15 02:30 Temperature Pulse Rate 142 H 117 H 123 H Pulse Rate [ From Monitor] Respiratory 27 H 21 26 H Rate Blood Pressure 112/56 115/50 110/68 O2 Sat by Pulse 90 89 Oximetry 07/17/19 07/17/19 07/17/19 02:45 03:00 03:15 Temperature Pulse Rate 125 H 121 H 117 H Pulse Rate [ From Monitor] Respiratory 23 26 H 23 Rate Blood Pressure 109/64 123/54 116/52 O2 Sat by Pulse 80 L 73 L 87 Oximetry 07/17/19 07/17/19 07/17/19 03:19 03:30 03:45 Temperature 97.6 F Pulse Rate 113 H 118 H Pulse Rate [ From Monitor] Respiratory 22 22 Rate Blood Pressure 122/62 129/60 O2 Sat by Pulse 89 87 Oximetry 07/17/19 07/17/19 07/17/19 03:48 04:00 04:15 Temperature Pulse Rate 113 H 119 H 119 H Pulse Rate [ From Monitor] Respiratory 23 24 Rate Blood Pressure 122/62 116/59 118/60 O2 Sat by Pulse 91 91 92 Oximetry 07/17/19 07/17/19 07/17/19 04:30 04:45 05:00 Temperature Pulse Rate 123 H 125 H 118 H Pulse Rate [ From Monitor] Respiratory 24 21 19 Rate Blood Pressure 104/68 104/68 118/61 O2 Sat by Pulse 92 81 L Oximetry 07/17/19 07/17/19 07/17/19 05:15 05:30 05:31 Temperature Pulse Rate 119 H 113 H 112 H Pulse Rate [ From Monitor] Respiratory 22 18 Rate Blood Pressure 115/58 112/56 112/56 O2 Sat by Pulse 85 92 95 Oximetry 07/17/19 07/17/19 07/17/19 05:45 06:00 06:15 Temperature Pulse Rate 114 H 115 H 116 H Pulse Rate [ From Monitor] Respiratory 20 19 17 Rate Blood Pressure 111/57 109/60 112/60 O2 Sat by Pulse 96 93 95 Oximetry 07/17/19 07/17/19 07/17/19 06:30 06:45 07:00 Temperature Pulse Rate 113 H 110 H 106 H Pulse Rate [ From Monitor] Respiratory 18 16 28 H Rate Blood Pressure 106/49 99/51 91/50 O2 Sat by Pulse 94 95 99 Oximetry 07/17/19 07/17/19 07/17/19 07:15 07:30 07:45 Temperature Pulse Rate 104 H 105 H 105 H Pulse Rate [ From Monitor] Respiratory 29 H 17 18 Rate Blood Pressure 86/47 85/49 93/47 O2 Sat by Pulse 99 Oximetry 07/17/19 07/17/19 07/17/19 08:00 08:15 08:30 Temperature 97.9 F Pulse Rate 104 H 104 H 103 H Pulse Rate [ From Monitor] Respiratory 29 H 16 14 Rate Blood Pressure 87/49 81/47 86/50 O2 Sat by Pulse 97 Oximetry 07/17/19 07/17/19 07/17/19 08:45 09:00 09:15 Temperature Pulse Rate 105 H 105 H 107 H Pulse Rate [ 106 H From Monitor] Respiratory 16 24 21 Rate Blood Pressure 84/49 82/47 87/50 O2 Sat by Pulse 98 99 98 Oximetry 07/17/19 07/17/19 07/17/19 09:30 09:45 10:00 Temperature Pulse Rate 106 H 111 H 107 H Pulse Rate [ From Monitor] Respiratory 17 18 16 Rate Blood Pressure 87/48 100/52 99/52 O2 Sat by Pulse 98 98 99 Oximetry 07/17/19 07/17/19 07/17/19 10:15 10:30 10:45 Temperature Pulse Rate 106 H 103 H 105 H Pulse Rate [ From Monitor] Respiratory 13 19 12 Rate Blood Pressure 89/51 88/53 94/53 O2 Sat by Pulse 99 99 Oximetry 07/17/19 07/17/19 07/17/19 11:00 11:15 11:30 Temperature Pulse Rate 106 H 108 H 97 H Pulse Rate [ From Monitor] Respiratory 17 15 20 Rate Blood Pressure 89/49 95/57 93/54 O2 Sat by Pulse 99 100 98 Oximetry 07/17/19 07/17/19 07/17/19 11:45 12:00 12:07 Temperature Pulse Rate 100 H 101 H 100 H Pulse Rate [ From Monitor] Respiratory 17 19 Rate Blood Pressure 94/54 94/53 94/53 O2 Sat by Pulse 100 99 100 Oximetry 07/17/19 07/17/19 12:15 12:30 Temperature Pulse Rate 105 H 115 H Pulse Rate [ From Monitor] Respiratory 16 14 Rate Blood Pressure 97/59 87/57 O2 Sat by Pulse 99 96 Oximetry Constitutional: other (sedated, critically ill on ventilator) Eyes: non-icteric ENT: oropharynx moist Neck: supple Effort: other (tachypneic 2/2 vent) Ascultation: Bilateral: other (coarse equal BS bilaterally) Cardiovascular: regular rate and rhythm (no mrg) Gastrointestinal: normoactive bowel sounds, soft, non-tender, non-distended Integumentary: normal Extremities: no cyanosis, no edema, pink and warm Neurologic: other (sedated) Psychiatric: other (unable to obtain) CBC and BMP: 07/17/19 03:40 07/17/19 03:40 ABG, PT/INR, D-dimer: ABG POC ABG pH 7.061 (7.35-7.45) L 07/17/19 06:51 ABG pH 7.192 pH Units (7.350-7.450) L* 07/17/19 10:57 POC ABG pCO2 49.0 (35-45) H 07/17/19 06:51 ABG pCO2 43.6 mm Hg 07/17/19 10:57 POC ABG pO2 98 (80-105) 07/17/19 06:51 ABG pO2 67.5 mm Hg (80.0-90.0) L 07/17/19 10:57 POC ABG HCO3 13.9 (22-26 mml/L) 07/17/19 06:51 POC ABG Total CO2 15 (23-27mmol/L) 07/17/19 06:51 POC ABG O2 Sat 94 07/17/19 06:51 ABG O2 Saturation 92.6 % (95.0-99.0) L 07/17/19 10:57 PT/INR, D-dimer PT 16.3 Sec. (12.2-14.9) H 07/16/19 05:47 INR 1.35 (0.87-1.13) H 07/16/19 05:47 Abnormal lab findings: Abnormal Labs 07/16/19 07/16/19 07/16/19 02:01 02:01 02:01 WBC 11.7 H Plt Count 101 L Seg Neuts % (Manual) 92.0 H Lymphocytes % (Manual) 5.0 L Eosinophils % (Manual) Seg Neutrophils # Man 10.8 H Lymphocytes # (Manual) 0.6 L Eosinophils # (Manual) PT 15.2 H INR 1.23 H POC ABG pH ABG pH POC ABG pCO2 POC ABG pO2 ABG pO2 ABG HCO3 ABG O2 Saturation ABG Base Excess Oxyhemoglobin Sodium Chloride Carbon Dioxide 18 L BUN 46 H Creatinine 2.2 H Glucose 116 H POC Glucose Lactic Acid Calcium AST 63 H ALT 125 H Total Protein 6.2 L Albumin 2.8 L Lipase Urine WBC (Auto) U Epithel Cells (Auto) Urine Creatinine 07/16/19 07/16/19 07/16/19 02:16 02:43 04:07 WBC Plt Count Seg Neuts % (Manual) Lymphocytes % (Manual) Eosinophils % (Manual) Seg Neutrophils # Man Lymphocytes # (Manual) Eosinophils # (Manual) PT INR POC ABG pH ABG pH POC ABG pCO2 POC ABG pO2 ABG pO2 ABG HCO3 ABG O2 Saturation ABG Base Excess Oxyhemoglobin Sodium Chloride Carbon Dioxide BUN Creatinine Glucose POC Glucose Lactic Acid 2.10 H* 2.30 H* Calcium AST ALT Total Protein Albumin Lipase 6 L Urine WBC (Auto) U Epithel Cells (Auto) Urine Creatinine 07/16/19 07/16/19 07/16/19 05:47 05:59 14:30 WBC Plt Count Seg Neuts % (Manual) Lymphocytes % (Manual) Eosinophils % (Manual) Seg Neutrophils # Man Lymphocytes # (Manual) Eosinophils # (Manual) PT 16.3 H INR 1.35 H POC ABG pH ABG pH POC ABG pCO2 POC ABG pO2 ABG pO2 ABG HCO3 ABG O2 Saturation ABG Base Excess Oxyhemoglobin Sodium Chloride Carbon Dioxide BUN Creatinine Glucose POC Glucose Lactic Acid Calcium AST ALT Total Protein Albumin Lipase Urine WBC (Auto) > 182.0 H U Epithel Cells (Auto) 21.0 H Urine Creatinine 76.6 H 07/16/19 07/17/19 07/17/19 23:27 00:03 00:03 WBC Plt Count Seg Neuts % (Manual) Lymphocytes % (Manual) Eosinophils % (Manual) Seg Neutrophils # Man Lymphocytes # (Manual) Eosinophils # (Manual) PT INR POC ABG pH 7.093 L ABG pH POC ABG pCO2 32.8 L POC ABG pO2 66 L ABG pO2 ABG HCO3 ABG O2 Saturation ABG Base Excess Oxyhemoglobin Sodium 148 H D Chloride 120.5 H Carbon Dioxide 14 L BUN 35 H Creatinine 1.5 H Glucose 42 L POC Glucose Lactic Acid 2.90 H* Calcium 5.7 L* D AST ALT Total Protein Albumin Lipase Urine WBC (Auto) U Epithel Cells (Auto) Urine Creatinine 07/17/19 07/17/19 07/17/19 03:01 03:29 03:40 WBC 13.2 H Plt Count 116 L Seg Neuts % (Manual) Lymphocytes % (Manual) 9.0 L Eosinophils % (Manual) 24.0 H Seg Neutrophils # Man 8.6 H Lymphocytes # (Manual) Eosinophils # (Manual) 3.2 H PT INR POC ABG pH 6.981 L ABG pH POC ABG pCO2 55.6 H POC ABG pO2 ABG pO2 ABG HCO3 ABG O2 Saturation ABG Base Excess Oxyhemoglobin Sodium Chloride Carbon Dioxide BUN Creatinine Glucose POC Glucose 64 L Lactic Acid Calcium AST ALT Total Protein Albumin Lipase Urine WBC (Auto) U Epithel Cells (Auto) Urine Creatinine 07/17/19 07/17/19 07/17/19 03:40 03:40 04:08 WBC Plt Count Seg Neuts % (Manual) Lymphocytes % (Manual) Eosinophils % (Manual) Seg Neutrophils # Man Lymphocytes # (Manual) Eosinophils # (Manual) PT INR POC ABG pH 7.056 L ABG pH POC ABG pCO2 POC ABG pO2 63 L ABG pO2 ABG HCO3 ABG O2 Saturation ABG Base Excess Oxyhemoglobin Sodium 147 H Chloride 120.2 H Carbon Dioxide 14 L BUN 36 H Creatinine 1.6 H Glucose POC Glucose Lactic Acid 3.20 H* Calcium 6.0 L AST ALT Total Protein Albumin Lipase Urine WBC (Auto) U Epithel Cells (Auto) Urine Creatinine 07/17/19 07/17/19 07/17/19 05:33 05:45 06:51 WBC Plt Count Seg Neuts % (Manual) Lymphocytes % (Manual) Eosinophils % (Manual) Seg Neutrophils # Man Lymphocytes # (Manual) Eosinophils # (Manual) PT INR POC ABG pH 7.061 L ABG pH POC ABG pCO2 49.0 H POC ABG pO2 ABG pO2 ABG HCO3 ABG O2 Saturation ABG Base Excess Oxyhemoglobin Sodium Chloride Carbon Dioxide BUN Creatinine Glucose POC Glucose 64 L 239 H Lactic Acid Calcium AST ALT Total Protein Albumin Lipase Urine WBC (Auto) U Epithel Cells (Auto) Urine Creatinine 07/17/19 10:57 WBC Plt Count Seg Neuts % (Manual) Lymphocytes % (Manual) Eosinophils % (Manual) Seg Neutrophils # Man Lymphocytes # (Manual) Eosinophils # (Manual) PT INR POC ABG pH ABG pH 7.192 L* POC ABG pCO2 POC ABG pO2 ABG pO2 67.5 L ABG HCO3 16.3 L ABG O2 Saturation 92.6 L ABG Base Excess -11.4 L Oxyhemoglobin 91.1 L Sodium Chloride Carbon Dioxide BUN Creatinine Glucose POC Glucose Lactic Acid Calcium AST ALT Total Protein Albumin Lipase Urine WBC (Auto) U Epithel Cells (Auto) Urine Creatinine Chest x-ray: report reviewed, image reviewed (bilateral infiltrates)
[2019-07-17] MEDS: MERREM 1,000 MG in NACL 0.9% 100 ML IV SCH ×2 (13:41→21:39)
--- NOTE | 2019-07-17 13:58 | Progress Note ---
Assessment and Plan - Patient Problems (1) Acute renal failure Current Visit: Yes Status: Acute Plan to address problem: CRISTIAN likely due to ATN in the setting of septic shock. cont aggressive IVF along with with vasopressor support to maintain MAP > 65mmHg. pt started on bicarb gtt at 100ml/hr, if metabolic acidosis is refractory with above treatment will consider HD. However patient remains non-oliguric at present, without emergent indication for renal replacement therapy at present. avoid nephrotoxins, NSAIDS, IV contrast. dose ABXs for current eGFR. will monitor lytes renal parameters closely and make further recommendations. (2) Septic shock Current Visit: Yes Status: Acute Plan to address problem: likely due to underlying pyelonephritis. cont IV bicarb and vasopresso support with levophed to maintain MAP > 65mmHg. ABX as per ID (3) Acute pyelonephritis Current Visit: Yes Status: Acute Plan to address problem: cont IV ABX as per ID recommendations (4) Elevated LFTs Current Visit: Yes Status: Acute Plan to address problem: likely due to septic shock, monitor CMP (5) Lactic acidosis Current Visit: Yes Status: Acute Plan to address problem: (6) Acute respiratory failure Current Visit: Yes Status: Acute Plan to address problem: vent management as per Pulm/CCM Subjective Date of service: 07/17/19 Principal diagnosis: CRISTIAN/ATN Interval history: Pt developed worsening respiratory failure requiring intubation overnight, remains on vasopressor support with max levophed and vasopressin. Pt started also on IV bicarb for worsening metabolic acidosis. she remains non-oliguric. Objective - Vital Signs Vital signs: Vital Signs - 12hr 07/17/19 07/17/19 07/17/19 02:01 02:15 02:30 Temperature Pulse Rate 142 H 117 H 123 H Pulse Rate [ From Monitor] Respiratory 27 H 21 26 H Rate Blood Pressure 112/56 115/50 110/68 O2 Sat by Pulse 90 89 Oximetry 07/17/19 07/17/19 07/17/19 02:45 03:00 03:15 Temperature Pulse Rate 125 H 121 H 117 H Pulse Rate [ From Monitor] Respiratory 23 26 H 23 Rate Blood Pressure 109/64 123/54 116/52 O2 Sat by Pulse 80 L 73 L 87 Oximetry 07/17/19 07/17/19 07/17/19 03:19 03:30 03:45 Temperature 97.6 F Pulse Rate 113 H 118 H Pulse Rate [ From Monitor] Respiratory 22 22 Rate Blood Pressure 122/62 129/60 O2 Sat by Pulse 89 87 Oximetry 07/17/19 07/17/19 07/17/19 03:48 04:00 04:15 Temperature Pulse Rate 113 H 119 H 119 H Pulse Rate [ From Monitor] Respiratory 23 24 Rate Blood Pressure 122/62 116/59 118/60 O2 Sat by Pulse 91 91 92 Oximetry 07/17/19 07/17/19 07/17/19 04:30 04:45 05:00 Temperature Pulse Rate 123 H 125 H 118 H Pulse Rate [ From Monitor] Respiratory 24 21 19 Rate Blood Pressure 104/68 104/68 118/61 O2 Sat by Pulse 92 81 L Oximetry 07/17/19 07/17/19 07/17/19 05:15 05:30 05:31 Temperature Pulse Rate 119 H 113 H 112 H Pulse Rate [ From Monitor] Respiratory 22 18 Rate Blood Pressure 115/58 112/56 112/56 O2 Sat by Pulse 85 92 95 Oximetry 07/17/19 07/17/19 07/17/19 05:45 06:00 06:15 Temperature Pulse Rate 114 H 115 H 116 H Pulse Rate [ From Monitor] Respiratory 20 19 17 Rate Blood Pressure 111/57 109/60 112/60 O2 Sat by Pulse 96 93 95 Oximetry 07/17/19 07/17/19 07/17/19 06:30 06:45 07:00 Temperature Pulse Rate 113 H 110 H 106 H Pulse Rate [ From Monitor] Respiratory 18 16 28 H Rate Blood Pressure 106/49 99/51 91/50 O2 Sat by Pulse 94 95 99 Oximetry 07/17/19 07/17/19 07/17/19 07:15 07:30 07:45 Temperature Pulse Rate 104 H 105 H 105 H Pulse Rate [ From Monitor] Respiratory 29 H 17 18 Rate Blood Pressure 86/47 85/49 93/47 O2 Sat by Pulse 99 Oximetry 07/17/19 07/17/19 07/17/19 08:00 08:15 08:30 Temperature 97.9 F Pulse Rate 104 H 104 H 103 H Pulse Rate [ From Monitor] Respiratory 29 H 16 14 Rate Blood Pressure 87/49 81/47 86/50 O2 Sat by Pulse 97 Oximetry 07/17/19 07/17/19 07/17/19 08:45 09:00 09:15 Temperature Pulse Rate 105 H 105 H 107 H Pulse Rate [ 106 H From Monitor] Respiratory 16 24 21 Rate Blood Pressure 84/49 82/47 87/50 O2 Sat by Pulse 98 99 98 Oximetry 07/17/19 07/17/19 07/17/19 09:30 09:45 10:00 Temperature Pulse Rate 106 H 111 H 107 H Pulse Rate [ From Monitor] Respiratory 17 18 16 Rate Blood Pressure 87/48 100/52 99/52 O2 Sat by Pulse 98 98 99 Oximetry 07/17/19 07/17/19 07/17/19 10:15 10:30 10:45 Temperature Pulse Rate 106 H 103 H 105 H Pulse Rate [ From Monitor] Respiratory 13 19 12 Rate Blood Pressure 89/51 88/53 94/53 O2 Sat by Pulse 99 99 Oximetry 07/17/19 07/17/19 07/17/19 11:00 11:15 11:30 Temperature Pulse Rate 106 H 108 H 97 H Pulse Rate [ From Monitor] Respiratory 17 15 20 Rate Blood Pressure 89/49 95/57 93/54 O2 Sat by Pulse 99 100 98 Oximetry 07/17/19 07/17/19 07/17/19 11:45 12:00 12:07 Temperature 98.8 F Pulse Rate 100 H 110 H 100 H Pulse Rate [ From Monitor] Respiratory 17 19 Rate Blood Pressure 94/54 94/53 94/53 O2 Sat by Pulse 100 99 100 Oximetry 07/17/19 07/17/19 07/17/19 12:15 12:30 12:45 Temperature Pulse Rate 105 H 115 H 113 H Pulse Rate [ From Monitor] Respiratory 16 14 13 Rate Blood Pressure 97/59 87/57 111/54 O2 Sat by Pulse 99 96 96 Oximetry 07/17/19 13:00 Temperature Pulse Rate 111 H Pulse Rate [ 101 H From Monitor] Respiratory 14 Rate Blood Pressure 105/51 O2 Sat by Pulse 95 Oximetry - General Appearance General appearance: sedated on ventilator, intubated, frail EENT: ATNC, mucous membranes moist Neck: no JVD Respiratory: Present: Clear to Ascultation Cardiology: regular, S1S2 Gastrointestinal: normoactive bowel sounds Integumentary: no rash, other (no edema ) Neurologic: other (intubated, sedated ) - Lab 07/17/19 03:40 07/17/19 03:40 Most recent lab results ABG pH 7.192 pH Units (7.350-7.450) L* 07/17/19 10:57 ABG pCO2 43.6 mm Hg 07/17/19 10:57 ABG pO2 67.5 mm Hg (80.0-90.0) L 07/17/19 10:57 ABG HCO3 16.3 mmol/L (20.0-26.0) L 07/17/19 10:57 ABG O2 Saturation 92.6 % (95.0-99.0) L 07/17/19 10:57 Calcium 6.0 mg/dL (8.4-10.2) L 07/17/19 03:40 76.6 mg/dL (0.1-20.0) H 07/16/19 14:30 39 mmol/L 07/16/19 14:30 Medications & Allergies - Medications Allergies/Adverse Reactions: Allergies latex Allergy (Verified 06/28/19 17:11) Anaphylaxis tramadol [From Ultram] Allergy (Verified 06/28/19 17:10) Unknown haloperidol [From Haldol] Adverse Reaction (Verified 07/17/19 05:55) Shortness of Breath agitation/combative ketorolac [From Toradol] Adverse Reaction (Verified 06/28/19 17:10) Seizure prochlorperazine [From Compazine] Adverse Reaction (Verified 06/28/19 17:11) Unknown Home Medications: Home Medications Medication Instructions Recorded Confirmed Last Taken Type No Known Home Medications [No 07/16/19 07/16/19 Unknown History Reported Home Medications] Active Medications: Generic Name Dose Route Start Last Admin Trade Name [id number] PRN Reason Stop Dose Admin Acetaminophen 650 mg 07/16/19 05:36 Tylenol PO Q4H PRN Pain MILD(1-3)/Fever >100.5/WHALEN Albuterol 2.5 mg 07/16/19 22:48 07/16/19 23:01 Proventil IH 2.5 mg Q4HRT PRN Administration Shortness Of Breath Dextrose 50 ml 07/17/19 03:17 07/17/19 05:30 D50w (25gm) Syringe IV 50 ml PRN PRN Administration Hypoglycemia Enoxaparin Sodium 30 mg 07/16/19 10:00 07/17/19 09:41 Lovenox SUB-Q 30 mg QDAY KASIE Administration Famotidine 20 mg 07/17/19 10:00 07/17/19 09:42 Pepcid IV 20 mg DAILY KASIE Administration Fentanyl 50 mcg 07/17/19 03:18 07/17/19 04:53 Sublimaze IV 50 mcg Q10MIN PRN Administration ANALGESIA Hydromorphone HCl 0.25 mg 07/16/19 05:36 07/16/19 21:18 Dilaudid IV 0.25 mg Q3H PRN Administration Pain, Moderate (4-6) Hydrophilic Ointment 1 applic 07/17/19 03:18 Vaseline Lip Therapy TP Q2HR PRN Dry Lips Vasopressin 20 unit/ Sodium 101 mls @ 9.09 mls/hr 07/16/19 20:00 07/17/19 07:53 Chloride IV 0.03 units/min TITR KASIE 9.09 mls/hr Administration Protocol 0.03 UNITS/MIN Norepinephrine 8 mg/ Sodium 250 mls @ 3.75 mls/hr 07/16/19 21:00 07/17/19 12:04 Chloride IV 30 mcg/min TITR KASIE 56.25 mls/hr Administration Protocol 2 MCG/MIN Midazolam HCl 100 mg/ Sodium 100 mls @ 2 mls/hr 07/17/19 04:00 07/17/19 05:04 Chloride IV 1 mg/hr TITR KASIE 1 mls/hr Administration Protocol 2 MG/HR Fentanyl Citrate 2,000 mcg in 100 mls @ 3.4 mls/hr 07/17/19 04:00 07/17/19 12:30 Fentanyl Drip Premix IV 2 mcg/kg/hr TITR KASIE 6.8 mls/hr Titration Protocol 1 MCG/KG/HR Vancomycin HCl 1 gm in 250 mls @ 167.007 mls/hr 07/17/19 10:00 07/17/19 09:43 Vancomycin/Ns 1 Gm/250 Ml IV 167.007 mls/hr Q24HR KASIE Administration Phenylephrine HCl 100 mg/ 100 mls @ 3 mls/hr 07/17/19 09:30 07/17/19 13:48 Sodium Chloride IV 60 mcg/min TITR KASIE 3.6 mls/hr Titration Protocol 50 MCG/MIN Sodium Bicarbonate 150 meq/ 1,150 mls @ 100 mls/hr 07/17/19 10:00 07/17/19 10:02 Dextrose IV 100 mls/hr DIRECT KASIE Administration Meropenem 1,000 mg/ Sodium 100 mls @ 100 mls/hr 07/17/19 14:00 07/17/19 13:41 Chloride IV 100 mls/hr Q8HR KASIE Administration Protocol Midazolam HCl 2 mg 07/17/19 03:18 07/17/19 04:53 Versed IV 2 mg Q10MIN PRN Administration Sedation Multi-Ingred Cream/Lotion/Oil/Oint 1 applic 07/17/19 03:18 Artificial Tears Ophth Oint OU Q4HR PRN Dry Eye(s) Nicotine 14 mg 07/16/19 10:00 07/17/19 09:42 Habitrol TD 14 mg QDAY KASIE Administration Ondansetron HCl 4 mg 07/16/19 05:36 07/16/19 21:16 Zofran IV 4 mg Q8H PRN Administration Nausea And Vomiting Oxycodone/Acetaminophen 1 tab 07/16/19 05:36 07/16/19 12:33 Percocet 5/325 PO 1 tab Q6H PRN Administration Pain, Moderate (4-6) Sodium Chloride 10 ml 07/16/19 10:00 07/17/19 12:04 Sodium Chloride Flush Syringe 10 Ml IV 10 ml BID KASIE Administration Sodium Chloride 10 ml 07/16/19 05:36 Sodium Chloride Flush Syringe 10 Ml IV PRN PRN LINE FLUSH
[2019-07-17 15:06] LABS: ABG Base Excess -9.8 mmol/L (-2.0-3.0); ABG Methemoglobin 0.7 % (0.0-1.5); ABG Oxygen Saturation 98.5 % (95.0-99.0); ABG PH 7.237 pH Units (7.350-7.450); ABG PO2 142.4 mm Hg (80.0-90.0)
--- NOTE | 2019-07-17 15:20 | Progress Note ---
Assessment and Plan - Patient Problems (1) Cellulitis of right foot Current Visit: Yes Status: Acute Plan to address problem: Pt in critical condition. This is not related to foot infection. Foot appears better today. No I&D needed at this time. Will follow peripherally. Please call with questions. time=10min Subjective Date of service: 07/17/19 Patient Reports: Positive: other (overnight events noted) Objective Vital Signs - 12hr 07/17/19 07/17/19 07/17/19 03:19 03:30 03:45 Temperature 97.6 F Pulse Rate 113 H 118 H Pulse Rate [ From Monitor] Respiratory 22 22 Rate Blood Pressure 122/62 129/60 O2 Sat by Pulse 89 87 Oximetry 07/17/19 07/17/19 07/17/19 03:48 04:00 04:15 Temperature Pulse Rate 113 H 119 H 119 H Pulse Rate [ From Monitor] Respiratory 23 24 Rate Blood Pressure 122/62 116/59 118/60 O2 Sat by Pulse 91 91 92 Oximetry 07/17/19 07/17/19 07/17/19 04:30 04:45 05:00 Temperature Pulse Rate 123 H 125 H 118 H Pulse Rate [ From Monitor] Respiratory 24 21 19 Rate Blood Pressure 104/68 104/68 118/61 O2 Sat by Pulse 92 81 L Oximetry 07/17/19 07/17/19 07/17/19 05:15 05:30 05:31 Temperature Pulse Rate 119 H 113 H 112 H Pulse Rate [ From Monitor] Respiratory 22 18 Rate Blood Pressure 115/58 112/56 112/56 O2 Sat by Pulse 85 92 95 Oximetry 07/17/19 07/17/19 07/17/19 05:45 06:00 06:15 Temperature Pulse Rate 114 H 115 H 116 H Pulse Rate [ From Monitor] Respiratory 20 19 17 Rate Blood Pressure 111/57 109/60 112/60 O2 Sat by Pulse 96 93 95 Oximetry 07/17/19 07/17/19 07/17/19 06:30 06:45 07:00 Temperature Pulse Rate 113 H 110 H 106 H Pulse Rate [ From Monitor] Respiratory 18 16 28 H Rate Blood Pressure 106/49 99/51 91/50 O2 Sat by Pulse 94 95 99 Oximetry 07/17/19 07/17/19 07/17/19 07:15 07:30 07:45 Temperature Pulse Rate 104 H 105 H 105 H Pulse Rate [ From Monitor] Respiratory 29 H 17 18 Rate Blood Pressure 86/47 85/49 93/47 O2 Sat by Pulse 99 Oximetry 07/17/19 07/17/19 07/17/19 08:00 08:15 08:30 Temperature 97.9 F Pulse Rate 104 H 104 H 103 H Pulse Rate [ From Monitor] Respiratory 29 H 16 14 Rate Blood Pressure 87/49 81/47 86/50 O2 Sat by Pulse 97 Oximetry 07/17/19 07/17/19 07/17/19 08:45 09:00 09:15 Temperature Pulse Rate 105 H 105 H 107 H Pulse Rate [ 106 H From Monitor] Respiratory 16 24 21 Rate Blood Pressure 84/49 82/47 87/50 O2 Sat by Pulse 98 99 98 Oximetry 07/17/19 07/17/19 07/17/19 09:30 09:45 10:00 Temperature Pulse Rate 106 H 111 H 107 H Pulse Rate [ From Monitor] Respiratory 17 18 16 Rate Blood Pressure 87/48 100/52 99/52 O2 Sat by Pulse 98 98 99 Oximetry 07/17/19 07/17/19 07/17/19 10:15 10:30 10:45 Temperature Pulse Rate 106 H 103 H 105 H Pulse Rate [ From Monitor] Respiratory 13 19 12 Rate Blood Pressure 89/51 88/53 94/53 O2 Sat by Pulse 99 99 Oximetry 07/17/19 07/17/19 07/17/19 11:00 11:15 11:30 Temperature Pulse Rate 106 H 108 H 97 H Pulse Rate [ From Monitor] Respiratory 17 15 20 Rate Blood Pressure 89/49 95/57 93/54 O2 Sat by Pulse 99 100 98 Oximetry 07/17/19 07/17/19 07/17/19 11:45 12:00 12:07 Temperature 98.8 F Pulse Rate 100 H 110 H 100 H Pulse Rate [ From Monitor] Respiratory 17 19 Rate Blood Pressure 94/54 94/53 94/53 O2 Sat by Pulse 100 99 100 Oximetry 07/17/19 07/17/19 07/17/19 12:15 12:30 12:45 Temperature Pulse Rate 105 H 115 H 113 H Pulse Rate [ From Monitor] Respiratory 16 14 13 Rate Blood Pressure 97/59 87/57 111/54 O2 Sat by Pulse 99 96 96 Oximetry 07/17/19 07/17/19 07/17/19 13:00 13:15 13:30 Temperature Pulse Rate 111 H 109 H 106 H Pulse Rate [ 101 H From Monitor] Respiratory 14 14 15 Rate Blood Pressure 105/51 110/55 109/57 O2 Sat by Pulse 95 95 Oximetry 07/17/19 07/17/19 13:45 14:00 Temperature Pulse Rate 103 H 106 H Pulse Rate [ From Monitor] Respiratory 14 13 Rate Blood Pressure 102/52 106/59 O2 Sat by Pulse Oximetry - General physical appearance no distress, no pain, other (sedated) - ENT other (intubated) - Integumentary other (decreased erythema and swelling on right foot. 2nd toe fluctuant area is slightly smaller. ) - Labs 07/17/19 03:40 07/17/19 03:40 Diabetes panel 07/17/19 07/17/19 Range/Units 00:03 03:40 Sodium 148 H D 147 H (137-145) mmol/L Potassium 4.0 4.3 (3.6-5.0) mmol/L Chloride 120.5 H 120.2 H (98-107) mmol/L Carbon Dioxide 14 L 14 L (22-30) mmol/L BUN 35 H 36 H (7-17) mg/dL Creatinine 1.5 H 1.6 H (0.7-1.2) mg/dL Glucose 42 L 66 (65-100) mg/dL Calcium 5.7 L* D 6.0 L (8.4-10.2) mg/dL Calcium panel 07/17/19 07/17/19 Range/Units 00:03 03:40 Calcium 5.7 L* D 6.0 L (8.4-10.2) mg/dL Pituitary panel 07/17/19 07/17/19 Range/Units 00:03 03:40 Sodium 148 H D 147 H (137-145) mmol/L Potassium 4.0 4.3 (3.6-5.0) mmol/L Chloride 120.5 H 120.2 H (98-107) mmol/L Carbon Dioxide 14 L 14 L (22-30) mmol/L BUN 35 H 36 H (7-17) mg/dL Creatinine 1.5 H 1.6 H (0.7-1.2) mg/dL Glucose 42 L 66 (65-100) mg/dL Calcium 5.7 L* D 6.0 L (8.4-10.2) mg/dL Adrenal panel 07/17/19 07/17/19 Range/Units 00:03 03:40 Sodium 148 H D 147 H (137-145) mmol/L Potassium 4.0 4.3 (3.6-5.0) mmol/L Chloride 120.5 H 120.2 H (98-107) mmol/L Carbon Dioxide 14 L 14 L (22-30) mmol/L BUN 35 H 36 H (7-17) mg/dL Creatinine 1.5 H 1.6 H (0.7-1.2) mg/dL Glucose 42 L 66 (65-100) mg/dL Calcium 5.7 L* D 6.0 L (8.4-10.2) mg/dL
--- NOTE | 2019-07-17 21:02 | Event Note ---
Date: 07/18/19 Patient seen and examined by my collegue today following intubation. Continue current treatment plan. Discussed with ID doctor, will obtain Urologist AND FEATHER RENOVATOR consult
[2019-07-18] MEDS: LEVOPHED 8 MG in NACL 0.9% 250ML 242 ML IV SCH ×5 (01:35→20:36)
[2019-07-18] MEDS: Vasostrict 20 UNIT in NACL 0.9% 100 ML IV SCH ×2 (01:35→14:18)
--- NOTE | 2019-07-18 03:29 | XRay Report ---
CHEST 1 VIEW 2:10 AM INDICATION / CLINICAL INFORMATION: Follow-up respiratory failure. COMPARISON: Yesterday. FINDINGS: SUPPORT DEVICES: The positions of the endotracheal tube and right jugular CVL have not changed. HEART / MEDIASTINUM: Unchanged. LUNGS / PLEURA: There is moderately severe diffuse bilateral parenchymal disease, mildly improved. No pneumothorax. ADDITIONAL FINDINGS: Gaseous distention of the stomach has resolved. IMPRESSION: Mild improvement in moderately severe diffuse bilateral parenchymal disease since yesterd ay. Signer Name: Parag Navarrete MD Signed: 07/18/2019 3:24 AM Workstation Name: [id number]
[2019-07-18] MEDS: MERREM 1,000 MG in NACL 0.9% 100 ML IV SCH ×3 (05:11→22:00)
[2019-07-18 05:43] LABS: Hematocrit 33.6 % (30.3-42.9); Hemoglobin 11.4 gm/dl (10.1-14.3); Mean Corpuscular HGB Conc 34 % (30-34); Mean Corpuscular Volume 90 fl (79-97); Red Blood Count 3.73 M/mm3 (3.65-5.03)
[2019-07-18 05:45] LABS: Platelet Count 85 K/mm3 (140-440)
[2019-07-18 08:03] LABS: Band Neutrophils # (Manual) 0.3 K/mm3; Basophils % (Manual) 0 % (0.0-1.8); Eosinophils % (Manual) 0 % (0.0-4.3); Giant Platelets Few; Myelocytes # (Manual) 0.1 K/mm3; Platelet Estimate Consistent w Auto; RBC Morphology Normal; Total Cells Counted 100
[2019-07-18] MEDS: NEO-SYNEPHRINE 100 MG in NACL 0.9% 90 ML IV SCH (08:06)
[2019-07-18] MEDS: SODIUM BICARBONATE 150 MEQ in D5W 1,000 ML IV SCH (08:29)
[2019-07-18] MEDS: HABITROL TD SCH (10:56)
[2019-07-18] MEDS: PEPCID IV SCH (10:56)
[2019-07-18] MEDS: LOVENOX SUB-Q SCH (10:57)
[2019-07-18] MEDS: SODIUM CHLORIDE FLUSH SYRINGE 10 ML IV SCH ×2 (10:57→22:00)
[2019-07-18] MEDS: VANCOMYCIN/NS 1 GM/250 ML 1 GM/250 ML BAG IV SCH (10:57)
[2019-07-18] MEDS: fentaNYL DRIP Premix 2,000 MCG/100 ML BAG IV SCH (10:58)
[2019-07-18] MEDS ORDERED: CALCIUM GLUCONATE 1,000 MG in NACL 0.9% 100 ML IV ONE (11:21)
[2019-07-18] MEDS ORDERED: KCL 20MEQ/100ML 20 MEQ/100 ML BAG IV ONE (11:22)
--- NOTE | 2019-07-18 11:27 | Progress Note ---
Assessment and Plan - Patient Problems (1) Acute renal failure Current Visit: Yes Status: Acute Plan to address problem: CRISTIAN likely due to ATN in the setting of septic shock. cont aggressive IVF along with with vasopressor support to maintain MAP > 65mmHg. Metabolic acidosis improved with IV bicarb, bicarb decreased to 75meq/l given rising Na level. patient remains non-oliguric, without emergent indication for renal replacement therapy at present. avoid nephrotoxins, NSAIDS, IV contrast. dose ABXs for current eGFR. will monitor lytes renal parameters closely and make further recommendations. Discussed with ICU team (2) Septic shock Current Visit: Yes Status: Acute Plan to address problem: likely due to underlying pyelonephritis. cont IV bicarb and vasopresso support with levophed to maintain MAP > 65mmHg. ABX as per ID (3) Acute pyelonephritis Current Visit: Yes Status: Acute Plan to address problem: cont IV ABX as per ID recommendations (4) Elevated LFTs Current Visit: Yes Status: Acute Plan to address problem: likely due to septic shock, monitor CMP (5) Lactic acidosis Current Visit: Yes Status: Acute Plan to address problem: (6) Acute respiratory failure Current Visit: Yes Status: Acute Plan to address problem: vent management as per Pulm/CCM Subjective Date of service: 07/18/19 Principal diagnosis: Acute respiratory failure Interval history: Pt remains intubated, sedated, remains on vasopressor support with vaso, [id number]/min and neosynephrine 40mcg/min Objective - Vital Signs Vital signs: Vital Signs - 12hr 07/17/19 07/17/19 07/17/19 23:30 23:40 23:45 Temperature Pulse Rate 100 H 101 H 97 H Pulse Rate [ From Monitor] Pulse Rate [ Right Dorsalis Pedis] Respiratory 19 14 17 Rate Respiratory Rate [Back] Respiratory Rate [Bilateral Flank] Blood Pressure 105/57 101/57 107/56 O2 Sat by Pulse 95 Oximetry 07/17/19 07/18/19 07/18/19 23:50 00:00 00:15 Temperature Pulse Rate 98 H 98 H 97 H Pulse Rate [ From Monitor] Pulse Rate [ Right Dorsalis Pedis] Respiratory 12 23 19 Rate Respiratory Rate [Back] Respiratory Rate [Bilateral Flank] Blood Pressure 107/56 105/56 104/57 O2 Sat by Pulse 96 Oximetry 0807/18/19 07/18/19 00:20 00:30 00:45 Temperature Pulse Rate 108 H 108 H 102 H Pulse Rate [ From Monitor] Pulse Rate [ 99 H Right Dorsalis Pedis] Respiratory 16 17 26 H Rate Respiratory Rate [Back] Respiratory Rate [Bilateral Flank] Blood Pressure 104/57 117/53 O2 Sat by Pulse 96 95 Oximetry 07/18/19 07/18/19 07/18/19 01:00 01:15 01:30 Temperature Pulse Rate 98 H 96 H 97 H Pulse Rate [ From Monitor] Pulse Rate [ Right Dorsalis Pedis] Respiratory 22 26 H 23 Rate Respiratory Rate [Back] Respiratory Rate [Bilateral Flank] Blood Pressure 110/54 102/55 104/56 O2 Sat by Pulse 97 Oximetry 07/18/19 07/18/19 07/18/19 01:45 02:00 02:15 Temperature Pulse Rate 96 H 95 H 97 H Pulse Rate [ From Monitor] Pulse Rate [ Right Dorsalis Pedis] Respiratory 26 H 26 H 26 H Rate Respiratory Rate [Back] Respiratory Rate [Bilateral Flank] Blood Pressure 104/57 104/55 106/57 O2 Sat by Pulse Oximetry 07/18/19 07/18/19 07/18/19 02:30 02:45 02:47 Temperature Pulse Rate 94 H 93 H 108 H Pulse Rate [ From Monitor] Pulse Rate [ 99 H Right Dorsalis Pedis] Respiratory 26 H 26 H 16 Rate Respiratory Rate [Back] Respiratory Rate [Bilateral Flank] Blood Pressure 104/54 107/56 O2 Sat by Pulse 96 Oximetry 07/18/19 07/18/19 07/18/19 03:00 03:15 03:30 Temperature Pulse Rate 94 H 95 H 93 H Pulse Rate [ From Monitor] Pulse Rate [ Right Dorsalis Pedis] Respiratory 26 H 24 26 H Rate Respiratory Rate [Back] Respiratory Rate [Bilateral Flank] Blood Pressure 106/53 107/55 102/55 O2 Sat by Pulse Oximetry 07/18/19 07/18/19 07/18/19 03:45 03:46 04:00 Temperature 100.1 F H Pulse Rate 93 H 93 H Pulse Rate [ From Monitor] Pulse Rate [ Right Dorsalis Pedis] Respiratory 26 H 16 Rate Respiratory Rate [Back] Respiratory Rate [Bilateral Flank] Blood Pressure 108/56 107/55 O2 Sat by Pulse Oximetry 07/18/19 07/18/1919 04:15 04:30 04:40 Temperature Pulse Rate 92 H 95 H 94 H Pulse Rate [ From Monitor] Pulse Rate [ Right Dorsalis Pedis] Respiratory 26 H 25 H Rate Respiratory Rate [Back] Respiratory Rate [Bilateral Flank] Blood Pressure 104/56 105/54 105/54 O2 Sat by Pulse 95 95 Oximetry 07/18/19 07/18/19 07/18/19 04:45 05:00 05:15 Temperature Pulse Rate 93 H 93 H 94 H Pulse Rate [ From Monitor] Pulse Rate [ Right Dorsalis Pedis] Respiratory 26 H 26 H 26 H Rate Respiratory Rate [Back] Respiratory Rate [Bilateral Flank] Blood Pressure 107/54 106/54 106/58 O2 Sat by Pulse 95 Oximetry 07/18/19 07/18/19 07/18/19 05:30 05:33 05:45 Temperature Pulse Rate 90 90 90 Pulse Rate [ From Monitor] Pulse Rate [ 99 H Right Dorsalis Pedis] Respiratory 26 H 16 26 H Rate Respiratory Rate [Back] Respiratory Rate [Bilateral Flank] Blood Pressure 105/55 105/55 O2 Sat by Pulse 96 Oximetry 07/18/19 07/18/19 07/18/19 06:00 06:15 06:30 Temperature Pulse Rate 90 90 92 H Pulse Rate [ From Monitor] Pulse Rate [ Right Dorsalis Pedis] Respiratory 26 H 26 H 25 H Rate Respiratory Rate [Back] Respiratory Rate [Bilateral Flank] Blood Pressure 103/55 103/56 103/57 O2 Sat by Pulse 94 Oximetry 07/18/19 07/18/19 07/18/19 06:45 07:00 07:15 Temperature Pulse Rate 88 89 87 Pulse Rate [ From Monitor] Pulse Rate [ Right Dorsalis Pedis] Respiratory 26 H 26 H 26 H Rate Respiratory Rate [Back] Respiratory Rate [Bilateral Flank] Blood Pressure 103/56 102/56 102/56 O2 Sat by Pulse Oximetry 07/18/19 07/18/19 07/18/19 07:30 07:45 07:56 Temperature Pulse Rate 86 89 86 Pulse Rate [ From Monitor] Pulse Rate [ Right Dorsalis Pedis] Respiratory 26 H 26 H Rate Respiratory Rate [Back] Respiratory Rate [Bilateral Flank] Blood Pressure 102/58 102/57 102/57 O2 Sat by Pulse 94 Oximetry 07/18/19 07/18/19 07/18/19 08:00 08:15 08:30 Temperature Pulse Rate 100 H 89 86 Pulse Rate [ 99 H From Monitor] Pulse Rate [ Right Dorsalis Pedis] Respiratory 22 25 H 26 H Rate Respiratory Rate [Back] Respiratory Rate [Bilateral Flank] Blood Pressure 102/57 106/54 104/56 O2 Sat by Pulse 95 Oximetry 07/18/19 07/18/19 07/18/19 08:45 09:00 09:15 Temperature Pulse Rate 85 89 86 Pulse Rate [ From Monitor] Pulse Rate [ Right Dorsalis Pedis] Respiratory 20 26 H 26 H Rate Respiratory Rate [Back] Respiratory Rate [Bilateral Flank] Blood Pressure 103/55 102/56 100/57 O2 Sat by Pulse 92 Oximetry 07/18/19 10:00 Temperature Pulse Rate Pulse Rate [ From Monitor] Pulse Rate [ Right Dorsalis Pedis] Respiratory Rate Respiratory 26 H Rate [Back] Respiratory 26 H Rate [Bilateral Flank] Blood Pressure O2 Sat by Pulse Oximetry - General Appearance General appearance: well-developed, appears stated age, sedated on ventilator, intubated EENT: ATNC, mucous membranes moist Neck: no JVD Respiratory: Present: Clear to Ascultation Cardiology: regular, S1S2 Gastrointestinal: normoactive bowel sounds Integumentary: no rash, other (no edema ) Neurologic: other (intubated, sedated ) - Lab 07/18/19 04:00 07/18/19 04:00 Most recent lab results ABG pH 7.237 pH Units (7.350-7.450) L 07/17/19 Unknown ABG pCO2 41.0 mm Hg 07/17/19 Unknown ABG pO2 142.4 mm Hg (80.0-90.0) H 07/17/19 Unknown ABG HCO3 17.0 mmol/L (20.0-26.0) L 07/17/19 Unknown ABG O2 Saturation 98.5 % (95.0-99.0) 07/17/19 Unknown Calcium 6.0 mg/dL (8.4-10.2) L 07/18/19 04:00 76.6 mg/dL (0.1-20.0) H 07/16/19 14:30 39 mmol/L 07/16/19 14:30 Medications & Allergies - Medications Allergies/Adverse Reactions: Allergies latex Allergy (Verified 06/28/19 17:11) Anaphylaxis tramadol [From Ultram] Allergy (Verified 06/28/19 17:10) Unknown haloperidol [From Haldol] Adverse Reaction (Verified 07/17/19 05:55) Shortness of Breath agitation/combative ketorolac [From Toradol] Adverse Reaction (Verified 06/28/19 17:10) Seizure prochlorperazine [From Compazine] Adverse Reaction (Verified 06/28/19 17:11) Unknown Home Medications: Home Medications Medication Instructions Recorded Confirmed Last Taken Type No Known Home Medications [No 07/16/19 07/16/19 Unknown History Reported Home Medications] Active Medications: Generic Name Dose Route Start Last Admin Trade Name Freq PRN Reason Stop Dose Admin Acetaminophen 650 mg 07/16/19 05:36 Tylenol PO Q4H PRN Pain MILD(1-3)/Fever >100.5/WHALEN Albuterol 2.5 mg 07/16/19 22:48 07/16/19 23:01 Proventil IH 2.5 mg Q4HRT PRN Administration Shortness Of Breath Dextrose 50 ml 07/17/19 03:17 07/17/19 05:30 D50w (25gm) Syringe IV 50 ml PRN PRN Administration Hypoglycemia Enoxaparin Sodium 30 mg 07/16/19 10:00 07/18/19 10:57 Lovenox SUB-Q 30 mg QDAY KASIE Administration Famotidine 20 mg 07/17/19 10:00 07/18/19 10:56 Pepcid IV 20 mg DAILY KASIE Administration Fentanyl 50 mcg 07/17/19 03:18 07/17/19 04:53 Sublimaze IV 50 mcg Q10MIN PRN Administration ANALGESIA Hydromorphone HCl 0.25 mg 07/16/19 05:36 07/16/19 21:18 Dilaudid IV 0.25 mg Q3H PRN Administration Pain, Moderate (4-6) Hydrophilic Ointment 1 applic 07/17/19 03:18 Vaseline Lip Therapy TP Q2HR PRN Dry Lips Vasopressin 20 unit/ Sodium 101 mls @ 9.09 mls/hr 07/16/19 20:00 07/18/19 01:35 Chloride IV 0.03 units/min TITR KASIE 9.09 mls/hr Administration Protocol 0.03 UNITS/MIN Norepinephrine 8 mg/ Sodium 250 mls @ 3.75 mls/hr 07/16/19 21:00 07/18/19 06:00 Chloride IV 26 mcg/min TITR KASIE 48.75 mls/hr Administration Protocol 2 MCG/MIN Midazolam HCl 100 mg/ Sodium 100 mls @ 2 mls/hr 07/17/19 04:00 07/17/19 05:04 Chloride IV 1 mg/hr TITR KASIE 1 mls/hr Administration Protocol 2 MG/HR Fentanyl Citrate 2,000 mcg in 100 mls @ 3.4 mls/hr 07/17/19 04:00 07/18/19 10:58 Fentanyl Drip Premix IV 2 mcg/kg/hr TITR KASIE 6.8 mls/hr Administration Protocol 1 MCG/KG/HR Vancomycin HCl 1 gm in 250 mls @ 167.007 mls/hr 07/17/19 10:00 07/18/19 10:57 Vancomycin/Ns 1 Gm/250 Ml IV 167.007 mls/hr Q24HR KASIE Administration Phenylephrine HCl 100 mg/ 100 mls @ 3 mls/hr 07/17/19 09:30 07/18/19 08:15 Sodium Chloride IV 40 mcg/min TITR KASIE 2.4 mls/hr Titration Protocol 50 MCG/MIN Meropenem 1,000 mg/ Sodium 100 mls @ 100 mls/hr 07/17/19 14:00 07/18/19 05:11 Chloride IV 100 mls/hr Q8HR KASIE Administration Protocol Sodium Bicarbonate 75 meq/ 1,075 mls @ 100 mls/hr 07/18/19 12:00 Dextrose IV DIRECT KASIE Calcium Gluconate 1,000 mg/ 110 mls @ 660 mls/hr 07/18/19 11:21 Sodium Chloride IV 07/18/19 11:31 ONCE ONE Potassium Chloride 20 meq in 100 mls @ 100 mls/hr 07/18/19 11:22 Kcl 20meq/100ml IV 07/18/19 12:21 ONCE ONE Midazolam HCl 2 mg 07/17/19 03:18 07/17/19 04:53 Versed IV 2 mg Q10MIN PRN Administration Sedation Multi-Ingred Cream/Lotion/Oil/Oint 1 applic 07/17/19 03:18 Artificial Tears Ophth Oint OU Q4HR PRN Dry Eye(s) Nicotine 14 mg 07/16/19 10:00 07/18/19 10:56 Habitrol TD 14 mg QDAY KASIE Administration Ondansetron HCl 4 mg 07/16/19 05:36 07/16/19 21:16 Zofran IV 4 mg Q8H PRN Administration Nausea And Vomiting Oxycodone/Acetaminophen 1 tab 07/16/19 05:36 07/16/19 12:33 Percocet 5/325 PO 1 tab Q6H PRN Administration Pain, Moderate (4-6) Sodium Chloride 10 ml 07/16/19 10:00 07/18/19 10:57 Sodium Chloride Flush Syringe 10 Ml IV 10 ml BID KASIE Administration Sodium Chloride 10 ml 07/16/19 05:36 Sodium Chloride Flush Syringe 10 Ml IV PRN PRN LINE FLUSH
--- NOTE | 2019-07-18 11:41 | Progress Note ---
Assessment and Plan - Patient Problems (1) Acute pyelonephritis Current Visit: Yes Status: Acute (2) Acute respiratory failure Current Visit: Yes Status: Acute (3) Cellulitis of right foot Current Visit: Yes Status: Acute (4) Elevated LFTs Current Visit: Yes Status: Acute (5) Sepsis Current Visit: Yes Status: Acute Subjective Principal diagnosis: Acute respiratory failure Interval history: on vent, sedated On Multiple drips Objective Vital Signs - 12hr 07/17/19 07/17/19 07/17/19 23:30 23:40 23:45 Temperature Pulse Rate 100 H 101 H 97 H Pulse Rate [ From Monitor] Pulse Rate [ Right Dorsalis Pedis] Respiratory 19 14 17 Rate Respiratory Rate [Back] Respiratory Rate [Bilateral Flank] Blood Pressure 105/57 101/57 107/56 O2 Sat by Pulse 95 Oximetry 07/17/19 07/18/19 07/18/19 23:50 00:00 00:15 Temperature Pulse Rate 98 H 98 H 97 H Pulse Rate [ From Monitor] Pulse Rate [ Right Dorsalis Pedis] Respiratory 12 23 19 Rate Respiratory Rate [Back] Respiratory Rate [Bilateral Flank] Blood Pressure 107/56 105/56 104/57 O2 Sat by Pulse 96 Oximetry 07/18/19 07/18/19 07/18/19 00:20 00:30 00:45 Temperature Pulse Rate 108 H 108 H 102 H Pulse Rate [ From Monitor] Pulse Rate [ 99 H Right Dorsalis Pedis] Respiratory 16 17 26 H Rate Respiratory Rate [Back] Respiratory Rate [Bilateral Flank] Blood Pressure 104/57 117/53 O2 Sat by Pulse 96 95 Oximetry 07/18/19 07/18/19 07/18/19 01:00 01:15 01:30 Temperature Pulse Rate 98 H 96 H 97 H Pulse Rate [ From Monitor] Pulse Rate [ Right Dorsalis Pedis] Respiratory 22 26 H 23 Rate Respiratory Rate [Back] Respiratory Rate [Bilateral Flank] Blood Pressure 110/54 102/55 104/56 O2 Sat by Pulse 97 Oximetry 07/18/19 07/18/19 07/18/19 01:45 02:00 02:15 Temperature Pulse Rate 96 H 95 H 97 H Pulse Rate [ From Monitor] Pulse Rate [ Right Dorsalis Pedis] Respiratory 26 H 26 H 26 H Rate Respiratory Rate [Back] Respiratory Rate [Bilateral Flank] Blood Pressure 104/57 104/55 106/57 O2 Sat by Pulse Oximetry 07/18/19 07/18/19 07/18/19 02:30 02:45 02:47 Temperature Pulse Rate 94 H 93 H 108 H Pulse Rate [ From Monitor] Pulse Rate [ 99 H Right Dorsalis Pedis] Respiratory 26 H 26 H 16 Rate Respiratory Rate [Back] Respiratory Rate [Bilateral Flank] Blood Pressure 104/54 107/56 O2 Sat by Pulse 96 Oximetry 07/18/19 07/18/19 07/18/19 03:00 03:15 03:30 Temperature Pulse Rate 94 H 95 H 93 H Pulse Rate [ From Monitor] Pulse Rate [ Right Dorsalis Pedis] Respiratory 26 H 24 26 H Rate Respiratory Rate [Back] Respiratory Rate [Bilateral Flank] Blood Pressure 106/53 107/55 102/55 O2 Sat by Pulse Oximetry 07/18/19 07/18/19 07/18/19 03:45 03:46 04:00 Temperature 100.1 F H Pulse Rate 93 H 93 H Pulse Rate [ From Monitor] Pulse Rate [ Right Dorsalis Pedis] Respiratory 26 H 16 Rate Respiratory Rate [Back] Respiratory Rate [Bilateral Flank] Blood Pressure 108/56 107/55 O2 Sat by Pulse Oximetry 07/18/19 07/18/19 07/18/19 04:15 04:30 04:40 Temperature Pulse Rate 92 H 95 H 94 H Pulse Rate [ From Monitor] Pulse Rate [ Right Dorsalis Pedis] Respiratory 26 H 25 H Rate Respiratory Rate [Back] Respiratory Rate [Bilateral Flank] Blood Pressure 104/56 105/54 105/54 O2 Sat by Pulse 95 95 Oximetry 07/18/19 07/18/19 07/18/19 04:45 05:00 05:15 Temperature Pulse Rate 93 H 93 H 94 H Pulse Rate [ From Monitor] Pulse Rate [ Right Dorsalis Pedis] Respiratory 26 H 26 H 26 H Rate Respiratory Rate [Back] Respiratory Rate [Bilateral Flank] Blood Pressure 107/54 106/54 106/58 O2 Sat by Pulse 95 Oximetry 07/18/19 07/18/19 07/18/19 05:30 05:33 05:45 Temperature Pulse Rate 90 90 90 Pulse Rate [ From Monitor] Pulse Rate [ 99 H Right Dorsalis Pedis] Respiratory 26 H 16 26 H Rate Respiratory Rate [Back] Respiratory Rate [Bilateral Flank] Blood Pressure 105/55 105/55 O2 Sat by Pulse 96 Oximetry 07/18/19 07/18/19 07/18/19 06:00 06:15 06:30 Temperature Pulse Rate 90 90 92 H Pulse Rate [ From Monitor] Pulse Rate [ Right Dorsalis Pedis] Respiratory 26 H 26 H 25 H Rate Respiratory Rate [Back] Respiratory Rate [Bilateral Flank] Blood Pressure 103/55 103/56 103/57 O2 Sat by Pulse 94 Oximetry 07/18/19 07/18/19 07/18/19 06:45 07:00 07:15 Temperature Pulse Rate 88 89 87 Pulse Rate [ From Monitor] Pulse Rate [ Right Dorsalis Pedis] Respiratory 26 H 26 H 26 H Rate Respiratory Rate [Back] Respiratory Rate [Bilateral Flank] Blood Pressure 103/56 102/56 102/56 O2 Sat by Pulse Oximetry 07/18/19 07/18/19 07/18/19 07:30 07:45 07:56 Temperature Pulse Rate 86 89 86 Pulse Rate [ From Monitor] Pulse Rate [ Right Dorsalis Pedis] Respiratory 26 H 26 H Rate Respiratory Rate [Back] Respiratory Rate [Bilateral Flank] Blood Pressure 102/58 102/57 102/57 O2 Sat by Pulse 94 Oximetry 07/18/19 07/18/19 07/18/19 08:00 08:15 08:30 Temperature Pulse Rate 100 H 89 86 Pulse Rate [ 99 H From Monitor] Pulse Rate [ Right Dorsalis Pedis] Respiratory 22 25 H 26 H Rate Respiratory Rate [Back] Respiratory Rate [Bilateral Flank] Blood Pressure 102/57 106/54 104/56 O2 Sat by Pulse 95 Oximetry 07/18/19 07/18/19 07/18/19 08:45 09:00 09:15 Temperature Pulse Rate 85 89 86 Pulse Rate [ From Monitor] Pulse Rate [ Right Dorsalis Pedis] Respiratory 20 26 H 26 H Rate Respiratory Rate [Back] Respiratory Rate [Bilateral Flank] Blood Pressure 103/55 102/56 100/57 O2 Sat by Pulse 92 Oximetry 07/18/19 10:00 Temperature Pulse Rate Pulse Rate [ From Monitor] Pulse Rate [ Right Dorsalis Pedis] Respiratory Rate Respiratory 26 H Rate [Back] Respiratory 26 H Rate [Bilateral Flank] Blood Pressure O2 Sat by Pulse Oximetry Constitutional: other (sedated, critically ill on ventilator) Eyes: non-icteric ENT: oropharynx moist Neck: supple Effort: other (tachypneic 2/2 vent) Ascultation: Bilateral: other (coarse equal BS bilaterally) Cardiovascular: regular rate and rhythm (no mrg) Gastrointestinal: normoactive bowel sounds, soft, non-tender, non-distended Integumentary: normal Extremities: no cyanosis, no edema, pink and warm Neurologic: other (sedated) Psychiatric: other (unable to obtain) CBC and BMP: 07/18/19 04:00 07/18/19 04:00 ABG, PT/INR, D-dimer: ABG POC ABG pH 7.239 (7.35-7.45) L 07/18/19 05:51 ABG pH 7.237 pH Units (7.350-7.450) L 07/17/19 Unknown POC ABG pCO2 56.9 (35-45) H 07/18/19 05:51 ABG pCO2 41.0 mm Hg 07/17/19 Unknown POC ABG pO2 88 (80-105) 07/18/19 05:51 ABG pO2 142.4 mm Hg (80.0-90.0) H 07/17/19 Unknown POC ABG HCO3 24.3 (22-26 mml/L) 07/18/19 05:51 POC ABG Total CO2 26 (23-27mmol/L) 07/18/19 05:51 POC ABG O2 Sat 95 07/18/19 05:51 ABG O2 Saturation 98.5 % (95.0-99.0) 07/17/19 Unknown PT/INR, D-dimer PT 16.3 Sec. (12.2-14.9) H 07/16/19 05:47 INR 1.35 (0.87-1.13) H 07/16/19 05:47 Abnormal lab findings: Abnormal Labs 07/16/19 07/16/19 07/16/19 02:01 02:01 02:01 WBC 11.7 H Plt Count 101 L Seg Neuts % (Manual) 92.0 H Lymphocytes % (Manual) 5.0 L Monocytes % (Manual) Eosinophils % (Manual) Seg Neutrophils # Man 10.8 H Lymphocytes # (Manual) 0.6 L Monocytes # (Manual) Eosinophils # (Manual) PT 15.2 H INR 1.23 H POC ABG pH ABG pH POC ABG pCO2 POC ABG pO2 ABG pO2 ABG HCO3 ABG O2 Saturation ABG Base Excess Oxyhemoglobin Sodium Potassium Chloride Carbon Dioxide 18 L BUN 46 H Creatinine 2.2 H Glucose 116 H POC Glucose Lactic Acid Calcium Total Bilirubin AST 63 H ALT 125 H Total Protein 6.2 L Albumin 2.8 L Lipase Urine WBC (Auto) U Epithel Cells (Auto) Urine Creatinine 07/16/19 07/16/19 07/16/19 02:16 02:43 04:07 WBC Plt Count Seg Neuts % (Manual) Lymphocytes % (Manual) Monocytes % (Manual) Eosinophils % (Manual) Seg Neutrophils # Man Lymphocytes # (Manual) Monocytes # (Manual) Eosinophils # (Manual) PT INR POC ABG pH ABG pH POC ABG pCO2 POC ABG pO2 ABG pO2 ABG HCO3 ABG O2 Saturation ABG Base Excess Oxyhemoglobin Sodium Potassium Chloride Carbon Dioxide BUN Creatinine Glucose POC Glucose Lactic Acid 2.10 H* 2.30 H* Calcium Total Bilirubin AST ALT Total Protein Albumin Lipase 6 L Urine WBC (Auto) U Epithel Cells (Auto) Urine Creatinine 07/16/19 07/16/19 07/16/19 05:47 05:59 14:30 WBC Plt Count Seg Neuts % (Manual) Lymphocytes % (Manual) Monocytes % (Manual) Eosinophils % (Manual) Seg Neutrophils # Man Lymphocytes # (Manual) Monocytes # (Manual) Eosinophils # (Manual) PT 16.3 H INR 1.35 H POC ABG pH ABG pH POC ABG pCO2 POC ABG pO2 ABG pO2 ABG HCO3 ABG O2 Saturation ABG Base Excess Oxyhemoglobin Sodium Potassium Chloride Carbon Dioxide BUN Creatinine Glucose POC Glucose Lactic Acid Calcium Total Bilirubin AST ALT Total Protein Albumin Lipase Urine WBC (Auto) > 182.0 H U Epithel Cells (Auto) 21.0 H Urine Creatinine 76.6 H 07/16/19 07/17/19 07/17/19 23:27 00:03 00:03 WBC Plt Count Seg Neuts % (Manual) Lymphocytes % (Manual) Monocytes % (Manual) Eosinophils % (Manual) Seg Neutrophils # Man Lymphocytes # (Manual) Monocytes # (Manual) Eosinophils # (Manual) PT INR POC ABG pH 7.093 L ABG pH POC ABG pCO2 32.8 L POC ABG pO2 66 L ABG pO2 ABG HCO3 ABG O2 Saturation ABG Base Excess Oxyhemoglobin Sodium 148 H D Potassium Chloride 120.5 H Carbon Dioxide 14 L BUN 35 H Creatinine 1.5 H Glucose 42 L POC Glucose Lactic Acid 2.90 H* Calcium 5.7 L* D Total Bilirubin AST ALT Total Protein Albumin Lipase Urine WBC (Auto) U Epithel Cells (Auto) Urine Creatinine 07/17/19 07/17/19 07/17/19 03:01 03:29 03:40 WBC 13.2 H Plt Count 116 L Seg Neuts % (Manual) Lymphocytes % (Manual) 9.0 L Monocytes % (Manual) Eosinophils % (Manual) 24.0 H Seg Neutrophils # Man 8.6 H Lymphocytes # (Manual) Monocytes # (Manual) Eosinophils # (Manual) 3.2 H PT INR POC ABG pH 6.981 L ABG pH POC ABG pCO2 55.6 H POC ABG pO2 ABG pO2 ABG HCO3 ABG O2 Saturation ABG Base Excess Oxyhemoglobin Sodium Potassium Chloride Carbon Dioxide BUN Creatinine Glucose POC Glucose 64 L Lactic Acid Calcium Total Bilirubin AST ALT Total Protein Albumin Lipase Urine WBC (Auto) U Epithel Cells (Auto) Urine Creatinine 07/17/19 07/17/19 07/17/19 03:40 03:40 04:08 WBC Plt Count Seg Neuts % (Manual) Lymphocytes % (Manual) Monocytes % (Manual) Eosinophils % (Manual) Seg Neutrophils # Man Lymphocytes # (Manual) Monocytes # (Manual) Eosinophils # (Manual) PT INR POC ABG pH 7.056 L ABG pH POC ABG pCO2 POC ABG pO2 63 L ABG pO2 ABG HCO3 ABG O2 Saturation ABG Base Excess Oxyhemoglobin Sodium 147 H Potassium Chloride 120.2 H Carbon Dioxide 14 L BUN 36 H Creatinine 1.6 H Glucose POC Glucose Lactic Acid 3.20 H* Calcium 6.0 L Total Bilirubin AST ALT Total Protein Albumin Lipase Urine WBC (Auto) U Epithel Cells (Auto) Urine Creatinine 07/17/19 07/17/19 07/17/19 05:33 05:45 06:51 WBC Plt Count Seg Neuts % (Manual) Lymphocytes % (Manual) Monocytes % (Manual) Eosinophils % (Manual) Seg Neutrophils # Man Lymphocytes # (Manual) Monocytes # (Manual) Eosinophils # (Manual) PT INR POC ABG pH 7.061 L ABG pH POC ABG pCO2 49.0 H POC ABG pO2 ABG pO2 ABG HCO3 ABG O2 Saturation ABG Base Excess Oxyhemoglobin Sodium Potassium Chloride Carbon Dioxide BUN Creatinine Glucose POC Glucose 64 L 239 H Lactic Acid Calcium Total Bilirubin AST ALT Total Protein Albumin Lipase Urine WBC (Auto) U Epithel Cells (Auto) Urine Creatinine 07/17/19 07/17/19 07/17/19 10:57 12:56 18:11 WBC Plt Count Seg Neuts % (Manual) Lymphocytes % (Manual) Monocytes % (Manual) Eosinophils % (Manual) Seg Neutrophils # Man Lymphocytes # (Manual) Monocytes # (Manual) Eosinophils # (Manual) PT INR POC ABG pH ABG pH 7.192 L* POC ABG pCO2 POC ABG pO2 ABG pO2 67.5 L ABG HCO3 16.3 L ABG O2 Saturation 92.6 L ABG Base Excess -11.4 L Oxyhemoglobin 91.1 L Sodium Potassium Chloride Carbon Dioxide BUN Creatinine Glucose POC Glucose 107 H 122 H Lactic Acid Calcium Total Bilirubin AST ALT Total Protein Albumin Lipase Urine WBC (Auto) U Epithel Cells (Auto) Urine Creatinine 07/17/19 07/17/19 07/18/19 23:34 Unknown 04:00 WBC Plt Count 85 L Seg Neuts % (Manual) 82.0 H Lymphocytes % (Manual) 2.0 L Monocytes % (Manual) 12.0 H Eosinophils % (Manual) Seg Neutrophils # Man Lymphocytes # (Manual) 0.2 L Monocytes # (Manual) 1.1 H Eosinophils # (Manual) PT INR POC ABG pH ABG pH 7.237 L POC ABG pCO2 POC ABG pO2 ABG pO2 142.4 H ABG HCO3 17.0 L ABG O2 Saturation ABG Base Excess -9.8 L Oxyhemoglobin Sodium Potassium Chloride Carbon Dioxide BUN Creatinine Glucose POC Glucose 136 H Lactic Acid Calcium Total Bilirubin AST ALT Total Protein Albumin Lipase Urine WBC (Auto) U Epithel Cells (Auto) Urine Creatinine 07/18/19 07/18/19 07/18/19 04:00 05:31 05:51 WBC Plt Count Seg Neuts % (Manual) Lymphocytes % (Manual) Monocytes % (Manual) Eosinophils % (Manual) Seg Neutrophils # Man Lymphocytes # (Manual) Monocytes # (Manual) Eosinophils # (Manual) PT INR POC ABG pH 7.239 L ABG pH POC ABG pCO2 56.9 H POC ABG pO2 ABG pO2 ABG HCO3 ABG O2 Saturation ABG Base Excess Oxyhemoglobin Sodium 151 H Potassium 3.2 L D Chloride 114.7 H Carbon Dioxide BUN 42 H Creatinine 2.1 H Glucose 130 H POC Glucose 135 H Lactic Acid Calcium 6.0 L Total Bilirubin 2.10 H AST 59 H ALT 62 H Total Protein 4.8 L D Albumin 2.0 L Lipase Urine WBC (Auto) U Epithel Cells (Auto) Urine Creatinine
[2019-07-18] MEDS: SODIUM BICARBONATE 75 MEQ in D5W 1,000 ML IV SCH ×2 (12:20→23:23)
--- NOTE | 2019-07-18 13:11 | XRay Report ---
ABDOMEN 1 VIEW(S) INDICATION: dobhoff placement COMPARISON: None available. FINDINGS: Dobbhoff feeding tube has tip in stomach Bowel gas pattern: Within normal limits. No dilated loops of large or small bowel. Free air: None. Calcified gallstones: None seen. Calcified urinary tract calculi: None seen. Additional Findings: None. Skeletal structures: No acute abnormality. IMPRESSION: 1. No acute findings. Signer Name: Garth Song MD Signed: 07/18/2019 1:07 PM Workstation Name: [id number]
[2019-07-18] MEDS ORDERED: PANCREAZE DR 10,500 UNIT FEEDTUBE PRN (14:34)
[2019-07-18] MEDS ORDERED: SODIUM BICARBONATE FEEDTUBE PRN (14:34)
[2019-07-18] MEDS ORDERED: SIMPLE SYRUP FEEDTUBE PRN ×2 (14:34)
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
--- NOTE | 2019-07-18 15:28 | Progress Note ---
Assessment and Plan Assessment and plan: The high probability of a clinically significant, sudden or life threatening deterioration of the [] system(s) required my full and direct attention, intervention and personal management. The aggregate critical care time was [] minutes. This time is in addition to time spent performing reported procedures but includes the following: x[] Data Review and interpretation x[] Patient assessment and monitoring of vital signs [x] Documentation [x] Medication orders and management - Patient Problems (1) Malnutrition Current Visit: Yes Status: Acute (2) Acute pyelonephritis Current Visit: Yes Status: Acute Plan to address problem: Most likely etiology of severe sepsis. Patient on multiple pressor support remains intubated in encephalopathic. We'll continue IV antibiotics Merrem and Vanco. (3) Cellulitis of right foot Current Visit: Yes Status: Resolved (4) Septic shock Current Visit: Yes Status: Acute Plan to address problem: A shunt with severe septic shock. Secondary to pyelonephritis. Escherichia coli. Sensitivities address. Antibiotics initiated. Continue supportive care. (5) Acute renal failure Current Visit: Yes Status: Acute History Interval history: Patient remains intubated on pressor support nonverbal restraints. No new changes over p.m. A maintenance sedated Hospitalist Physical - Constitutional Vitals: Temp Pulse Resp BP Pulse Ox 99.0 F 83 15 107/62 92 07/18/19 12:00 07/18/19 14:30 07/18/19 14:30 07/18/19 14:30 07/18/19 14:30 General appearance: Present: no acute distress, well-nourished - Neck Neck: Present: supple. Absent: enlarged thyroid, masses or JVD, cervical LAD, carotid bruits - Respiratory Respiratory effort: other (intubated. Breathing over the vent.) Respiratory: bilateral: diminished - Extremities Extremities: no ischemia, pulses intact, pulses symmetrical, No edema, normal temperature, normal color Peripheral Pulses: within normal limits - Abdominal General gastrointestinal: soft, non-tender, non-distended, normal bowel sounds, no distended, no hepatomegaly, no splenomegaly - Integumentary Integumentary: Present: clear, warm, dry. Absent: jaundice, rash, clammy - Psychiatric Psychiatric: appropriate mood/affect - Neurologic Neurologic: focal deficits Results - Labs CBC & Chem 7: 07/18/19 04:00 07/18/19 04:00 Labs: Laboratory Last Values WBC 9.3 K/mm3 (4.5-11.0) 07/18/19 04:00 RBC 3.73 M/mm3 (3.65-5.03) 07/18/19 04:00 Hgb 11.4 gm/dl (10.1-14.3) 07/18/19 04:00 Hct 33.6 % (30.3-42.9) D 07/18/19 04:00 MCV 90 fl (79-97) 07/18/19 04:00 MCH 31 pg (28-32) 07/18/19 04:00 MCHC 34 % (30-34) 07/18/19 04:00 RDW 15.0 % (13.2-15.2) 07/18/19 04:00 Plt Count 85 K/mm3 (140-440) L 07/18/19 04:00 Eos % (Auto) Regional Sales Director 07/17/19 03:40 Add Manual Diff Complete 07/18/19 04:00 Total Counted 100 07/18/19 04:00 Seg Neuts % (Manual) 82.0 % (40.0-70.0) H 07/18/19 04:00 3.0 % 07/18/19 04:00 2.0 % (13.4-35.0) L 07/18/19 04:00 Reactive Lymphs % (Man) 0 % 07/18/19 04:00 12.0 % (0.0-7.3) H 07/18/19 04:00 0 % (0.0-4.3) 07/18/19 04:00 0 % (0.0-1.8) 07/18/19 04:00 0 % 07/18/19 04:00 1.0 % 07/18/19 04:00 0 % 07/18/19 04:00 0 % 07/18/19 04:00 Nucleated RBC % Not Reportable 07/18/19 04:00 Seg Neutrophils # Man 7.6 K/mm3 (1.8-7.7) 07/18/19 04:00 Band Neutrophils # 0.3 K/mm3 07/18/19 04:00 0.2 K/mm3 (1.2-5.4) L 07/18/19 04:00 Abs React Lymphs (Man) 0.0 K/mm3 07/18/19 04:00 1.1 K/mm3 (0.0-0.8) H 07/18/19 04:00 0.0 K/mm3 (0.0-0.4) 07/18/19 04:00 0.0 K/mm3 (0.0-0.1) 07/18/19 04:00 0.0 K/mm3 07/18/19 04:00 0.1 K/mm3 07/18/19 04:00 0.0 K/mm3 07/18/19 04:00 Blast Cells # 0.0 K/mm3 07/18/19 04:00 WBC Morphology Not Reportable 07/18/19 04:00 Hypersegmented Neuts Not Reportable 07/18/19 04:00 Hyposegmented Neuts Not Reportable 07/18/19 04:00 Hypogranular Neuts Not Reportable 07/18/19 04:00 Not Reportable 07/18/19 04:00 Not Reportable 07/18/19 04:00 Not Reportable 07/18/19 04:00 Not Reportable 07/18/19 04:00 Not Reportable 07/18/19 04:00 Not Reportable 07/18/19 04:00 Consistent w auto 07/18/19 04:00 Not Reportable 07/18/19 04:00 Plt Clumps, EDTA Not Reportable 07/18/19 04:00 Not Reportable 07/18/19 04:00 Few 07/18/19 04:00 Not Reportable 07/18/19 04:00 Plt Morphology Comment Not Reportable 07/18/19 04:00 RBC Morphology Normal 07/18/19 04:00 Dimorphic RBCs Not Reportable 07/18/19 04:00 Not Reportable 07/18/19 04:00 Not Reportable 07/18/19 04:00 Not Reportable 07/18/19 04:00 Not Reportable 07/18/19 04:00 Not Reportable 07/18/19 04:00 Not Reportable 07/18/19 04:00 Not Reportable 07/18/19 04:00 Not Reportable 07/18/19 04:00 Not Reportable 07/18/19 04:00 Not Reportable 07/18/19 04:00 Not Reportable 07/18/19 04:00 Not Reportable 07/18/19 04:00 Not Reportable 07/18/19 04:00 Not Reportable 07/18/19 04:00 Not Reportable 07/18/19 04:00 Not Reportable 07/18/19 04:00 Not Reportable 07/18/19 04:00 Not Reportable 07/18/19 04:00 Not Reportable 07/18/19 04:00 Acanthocytes (Spur) Not Reportable 07/18/19 04:00 Rouleaux Not Reportable 07/18/19 04:00 Not Reportable 07/18/19 04:00 Not Reportable 07/18/19 04:00 Not Reportable 07/18/19 04:00 Not Reportable 07/18/19 04:00 Hem Pathologist Commnt No 07/18/19 04:00 PT 16.3 Sec. (12.2-14.9) H 07/16/19 05:47 INR 1.35 (0.87-1.13) H 07/16/19 05:47 APTT 32.4 Sec. (24.2-36.6) 07/16/19 05:47 POC ABG pH 7.239 (7.35-7.45) L 07/18/19 05:51 ABG pH 7.237 pH Units (7.350-7.450) L 07/17/19 Unknown POC ABG pCO2 56.9 (35-45) H 07/18/19 05:51 ABG pCO2 41.0 mm Hg 07/17/19 Unknown POC ABG pO2 88 (80-105) 07/18/19 05:51 ABG pO2 142.4 mm Hg (80.0-90.0) H 07/17/19 Unknown POC ABG HCO3 24.3 (22-26 mml/L) 07/18/19 05:51 ABG HCO3 17.0 mmol/L (20.0-26.0) L 07/17/19 Unknown POC ABG Total CO2 26 (23-27mmol/L) 07/18/19 05:51 POC ABG O2 Sat 95 07/18/19 05:51 ABG O2 Saturation 98.5 % (95.0-99.0) 07/17/19 Unknown ABG O2 Content 17.4 (0.0-44) 07/17/19 Unknown POC ABG Base Excess -3 ((-2) - (+3)mmol/L) 07/18/19 05:51 ABG Base Excess -9.8 mmol/L (-2.0-3.0) L 07/17/19 Unknown ABG Hemoglobin 12.6 gm/dl (12.0-16.0) 07/17/19 Unknown ABG Carboxyhemoglobin 0.8 % (0.0-5.0) 07/17/19 Unknown ABG Methemoglobin 0.7 % (0.0-1.5) 07/17/19 Unknown VBG pH 7.326 (7.320-7.420) 07/16/19 02:01 97.0 % (95.0-99.0) 07/17/19 Unknown 50 % 07/18/19 05:51 Sodium 151 mmol/L (137-145) H 07/18/19 04:00 Potassium 3.2 mmol/L (3.6-5.0) L D 07/18/19 04:00 Chloride 114.7 mmol/L (98-107) H 07/18/19 04:00 Carbon Dioxide 24 mmol/L (22-30) D 07/18/19 04:00 16 mmol/L 07/18/19 04:00 BUN 42 mg/dL (7-17) H 07/18/19 04:00 2.1 mg/dL (0.7-1.2) H 07/18/19 04:00 Estimated GFR 26 ml/min 07/18/19 04:00 20 % 07/18/19 04:00 Glucose 130 mg/dL (65-100) H 07/18/19 04:00 POC Glucose 126 (70-105) H 07/18/19 12:05 4.9 % (4-6) 07/16/19 05:47 Lactic Acid 1.60 mmol/L (0.7-2.0) 07/18/19 06:18 Calcium 6.0 mg/dL (8.4-10.2) L 07/18/19 04:00 2.10 mg/dL (0.1-1.2) H 07/18/19 04:00 AST 59 units/L (5-40) H 07/18/19 04:00 ALT 62 units/L (7-56) H 07/18/19 04:00 76 units/L (35-129) 07/18/19 04:00 4.8 g/dL (6.3-8.2) L D 07/18/19 04:00 2.0 g/dL (3.9-5) L 07/18/19 04:00 0.7 % 07/18/19 04:00 6 units/L (13-60) L 07/16/19 02:16 HCG, Quant 0.920 mIU/mL (0-4) 07/16/19 02:16 Caity (Yellow) 07/16/19 05:59 Cloudy (Clear) 07/16/19 05:59 5.0 (5.0-7.0) 07/16/19 05:59 Ur Specific Warren 1.015 (1.003-1.030) 07/16/19 05:59 100 mg/dl mg/dL (Negative) 07/16/19 05:59 Neg mg/dL (Negative) 07/16/19 05:59 Neg mg/dL (Negative) 07/16/19 05:59 Mod (Negative) 07/16/19 05:59 Pos (Negative) 07/16/19 05:59 Neg (Negative) 07/16/19 05:59 < 2.0 mg/dL (<2.0) 07/16/19 05:59 Ur Leukocyte Esterase Lg (Negative) 07/16/19 05:59 > 182.0 /HPF (0.0-6.0) H 07/16/19 05:59 42.0 /HPF (0.0-6.0) 07/16/19 05:59 U Epithel Cells (Auto) 21.0 /HPF (0-13.0) H 07/16/19 05:59 1+ /HPF (Negative) 07/16/19 05:59 2+ /HPF 07/16/19 05:59 Ur Transition Epith Cell 1 /HPF 07/16/19 05:59 Few /HPF 07/16/19 05:59 76.6 mg/dL (0.1-20.0) H 07/16/19 14:30 39 mmol/L 07/16/19 14:30 Random Vancomycin 5.6 ug/mL (0-40.0) 07/17/19 03:40 Blood Type O POSITIVE 07/16/19 02:16 Antibody Screen Negative 07/16/19 02:16 - Imaging and Cardiology Chest x-ray: image reviewed CT scan - abdomen: image reviewed CT scan - pelvis: image reviewed Active Medications - Current Medications Current Medications: Generic Name Dose Route Start Last Admin Trade Name Freq PRN Reason Stop Dose Admin Acetaminophen 650 mg 07/16/19 05:36 Tylenol PO Q4H PRN Pain MILD(1-3)/Fever >100.5/WHALEN Albuterol 2.5 mg 07/16/19 22:48 07/16/19 23:01 Proventil IH 2.5 mg Q4HRT PRN Administration Shortness Of Breath Lipase/Protease/Amylase 1 each 07/18/19 14:34 Pancreaze 10,500 Unit FEEDTUBE PRN PRN For Clogged Feeding Tube Dextrose 50 ml 07/17/19 03:17 07/17/19 05:30 D50w (25gm) Syringe IV 50 ml PRN PRN Administration Hypoglycemia Enoxaparin Sodium 30 mg 07/16/19 10:00 07/18/19 10:57 Lovenox SUB-Q 30 mg QDAY KASIE Administration Famotidine 20 mg 07/17/19 10:00 07/18/19 10:56 Pepcid IV 20 mg DAILY KASIE Administration Fentanyl 50 mcg 07/17/19 03:18 07/17/19 04:53 Sublimaze IV 50 mcg Q10MIN PRN Administration ANALGESIA Hydromorphone HCl 0.25 mg 07/16/19 05:36 07/16/19 21:18 Dilaudid IV 0.25 mg Q3H PRN Administration Pain, Moderate (4-6) Hydrophilic Ointment 1 applic 07/17/19 03:18 Vaseline Lip Therapy TP Q2HR PRN Dry Lips Vasopressin 20 unit/ Sodium 101 mls @ 9.09 mls/hr 07/16/19 20:00 07/18/19 14:18 Chloride IV 0.03 units/min TITR KASIE 9.09 mls/hr Administration Protocol 0.03 UNITS/MIN Norepinephrine 8 mg/ Sodium 250 mls @ 3.75 mls/hr 07/16/19 21:00 07/18/19 11:35 Chloride IV 26 mcg/min TITR KASIE 48.75 mls/hr Administration Protocol 2 MCG/MIN Midazolam HCl 100 mg/ Sodium 100 mls @ 2 mls/hr 07/17/19 04:00 07/17/19 05:04 Chloride IV 1 mg/hr TITR KASIE 1 mls/hr Administration Protocol 2 MG/HR Fentanyl Citrate 2,000 mcg in 100 mls @ 3.4 mls/hr 07/17/19 04:00 07/18/19 10:58 Fentanyl Drip Premix IV 2 mcg/kg/hr TITR KASIE 6.8 mls/hr Administration Protocol 1 MCG/KG/HR Vancomycin HCl 1 gm in 250 mls @ 167.007 mls/hr 07/17/19 10:00 07/18/19 10:57 Vancomycin/Ns 1 Gm/250 Ml IV 167.007 mls/hr Q24HR KASIE Administration Phenylephrine HCl 100 mg/ 100 mls @ 3 mls/hr 07/17/19 09:30 07/18/19 14:40 Sodium Chloride IV 30 mcg/min TITR KASIE 1.8 mls/hr Titration Protocol 50 MCG/MIN Meropenem 1,000 mg/ Sodium 100 mls @ 100 mls/hr 07/17/19 14:00 07/18/19 14:07 Chloride IV 100 mls/hr Q8HR KASIE Administration Protocol Sodium Bicarbonate 75 meq/ 1,075 mls @ 100 mls/hr 07/18/19 12:00 07/18/19 12:20 Dextrose IV 100 mls/hr DIRECT KASIE Administration Midazolam HCl 2 mg 07/17/19 03:18 07/17/19 04:53 Versed IV 2 mg Q10MIN PRN Administration Sedation Multi-Ingred Cream/Lotion/Oil/Oint 1 applic 07/17/19 03:18 Artificial Tears Ophth Oint OU Q4HR PRN Dry Eye(s) Nicotine 14 mg 07/16/19 10:00 07/18/19 10:56 Habitrol TD 14 mg QDAY KASIE Administration Ondansetron HCl 4 mg 07/16/19 05:36 07/16/19 21:16 Zofran IV 4 mg Q8H PRN Administration Nausea And Vomiting Oxycodone/Acetaminophen 1 tab 07/16/19 05:36 07/16/19 12:33 Percocet 5/325 PO 1 tab Q6H PRN Administration Pain, Moderate (4-6) Simple Syrup 15 ml 08/17/19 14:34 Simple Syrup FEEDTUBE PRN PRN Hypoglycemia Simple Syrup 30 ml 07/18/19 14:34 Simple Syrup FEEDTUBE PRN PRN Hypoglycemia Sodium Bicarbonate 325 mg 07/18/19 14:34 Sodium Bicarbonate FEEDTUBE PRN PRN For Clogged Feeding Tube Sodium Chloride 10 ml 07/16/19 10:00 07/18/19 10:57 Sodium Chloride Flush Syringe 10 Ml IV 10 ml BID KASIE Administration Sodium Chloride 10 ml 07/16/19 05:36 Sodium Chloride Flush Syringe 10 Ml IV PRN PRN LINE FLUSH Nutrition/Malnutrition Assess - Dietary Evaluation Nutrition/Malnutrition Findings: Nutrition Notes Start: 07/17/19 10:47 Freq: Status: Active Protocol: Document 07/18/19 14:30 KACY (Rec: 07/18/19 14:33 KACY [id number]) Nutrition Notes Need for Assessment generated from: MD Order Initial or Follow up Brief Note Labs/Tests Na 151 K 3.2 BUN 42 Cr 2.1 Pertinent Medications Pt on three pressors at this time Subjective/Other Information RD consulted for TF. Pt remains on vent support. Nutrition Intervention Nutrition Support: Promote at 70ml/hr with 300ml water flush q4h until hypernatremia resolved. Once hypernatremia resolved, 50ml water flush q4h. Kcal 1,680 Protein (gm) 105 Carbohydrates (gm) 218 Fat (gm) 44 Fluid (mL) 1,410 Fiber (gm) 0 Follow-Up By: 07/20/19 Additional Comments F/U: new TF, vent status
[2019-07-18] MEDS: FREE WATER PO SCH ×3 (17:28→20:18)
[2019-07-19] MEDS: FREE WATER PO SCH ×6 (00:07→20:17)
[2019-07-19] MEDS: fentaNYL DRIP Premix 2,000 MCG/100 ML BAG IV SCH ×2 (00:21→17:41)
[2019-07-19] MEDS: Vasostrict 20 UNIT in NACL 0.9% 100 ML IV SCH ×2 (01:35→13:15)
[2019-07-19] MEDS: LEVOPHED 8 MG in NACL 0.9% 250ML 242 ML IV SCH ×3 (02:40→20:25)
--- NOTE | 2019-07-19 03:10 | XRay Report ---
CHEST 1 VIEW 2:11 AM INDICATION / CLINICAL INFORMATION: Follow up respiratory failure. COMPARISON: Yesterday. FINDINGS: SUPPORT DEVICES: There is a new feeding tube coursing into the stomach with the tip not seen. The pos itions of the endotracheal tube and right jugular CVL have not changed. HEART / MEDIASTINUM: Unchanged. LUNGS / PLEURA: Moderately severe diffuse bilateral parenchymal disease has not changed significantly . No pneumothorax. ADDITIONAL FINDINGS: No significant additional findings. IMPRESSION: No significant interval change. Signer Name: Parag Navarrete MD Signed: 07/19/2019 3:06 AM Workstation Name: [id number]
[2019-07-19 04:27] LABS: ABG Base Excess -0.7 mmol/L (-2.0-3.0); ABG HCO3 26.4 mmol/L (20.0-26.0); ABG Methemoglobin 0.5 % (0.0-1.5); ABG PCO2 55.5 mm Hg; ABG PH 7.296 pH Units (7.350-7.450); ABG PO2 78.7 mm Hg (80.0-90.0)
[2019-07-19] MEDS: MERREM 1,000 MG in NACL 0.9% 100 ML IV SCH ×3 (05:00→23:34)
[2019-07-19 09:32] LABS: Hematocrit 32.2 % (30.3-42.9); Hemoglobin 10.9 gm/dl (10.1-14.3); Mean Corpuscular HGB Conc 34 % (30-34); Mean Corpuscular Volume 89 fl (79-97); Red Blood Count 3.64 M/mm3 (3.65-5.03); Red Cell Distribution Width 14.8 % (13.2-15.2)
[2019-07-19 09:45] LABS: Calcium 6.6 mg/dL (8.4-10.2)
[2019-07-19 09:46] LABS: Platelet Count 71 K/mm3 (140-440)
--- NOTE | 2019-07-19 10:10 | Progress Note ---
Assessment and Plan - Patient Problems (1) Acute renal failure Current Visit: Yes Status: Acute Plan to address problem: CRISTIAN likely due to ATN in the setting of septic shock. cont aggressive IVF along with with vasopressor support to maintain MAP > 65mmHg. Metabolic acidosis improved with IV bicarb, bicarb decreased to 75meq/l given rising Na level. patient remains non-oliguric, without emergent indication for renal replacement therapy at present. avoid nephrotoxins, NSAIDS, IV contrast. dose ABXs for current eGFR. will monitor lytes renal parameters closely and make further recommendations. (2) Septic shock Current Visit: Yes Status: Acute Plan to address problem: likely due to underlying pyelonephritis/E,Coli bacteremia. cont IV bicarb and vasopresso support with levophed to maintain MAP > 65mmHg. ABX as per ID (3) Acute pyelonephritis Current Visit: Yes Status: Acute Plan to address problem: cont IV ABX as per ID recommendations (4) Elevated LFTs Current Visit: Yes Status: Acute Plan to address problem: likely due to septic shock, now trending down with improved hemodynamics (5) Lactic acidosis Current Visit: Yes Status: Acute Plan to address problem: (6) Acute respiratory failure Current Visit: Yes Status: Acute Plan to address problem: vent management as per Pulm/CCM Subjective Date of service: 07/19/19 Principal diagnosis: Acute respiratory failure Interval history: Pt remains intubated, sedated, remains on vasopressor support with vaso, levo. neosynephrine was weaned off Objective - Vital Signs Vital signs: Vital Signs - 12hr 07/18/19 07/18/19 07/18/19 22:15 22:30 22:45 Temperature Pulse Rate 83 83 87 Pulse Rate [ From Monitor] Respiratory 25 H 26 H 26 H Rate Blood Pressure 102/53 101/54 104/56 O2 Sat by Pulse 96 96 95 Oximetry 07/18/19 07/18/19 07/18/19 23:00 23:15 23:30 Temperature Pulse Rate 86 90 87 Pulse Rate [ From Monitor] Respiratory 26 H 25 H 25 H Rate Blood Pressure 101/55 101/57 102/56 O2 Sat by Pulse 95 95 94 Oximetry 07/18/19 07/18/19 07/18/19 23:37 23:45 23:52 Temperature Pulse Rate 84 86 86 Pulse Rate [ From Monitor] Respiratory 26 H 26 H 26 H Rate Blood Pressure 102/56 100/55 O2 Sat by Pulse 95 94 96 Oximetry 07/18/19 07/19/19 07/19/19 23:53 00:00 00:04 Temperature 100 F H Pulse Rate 84 83 86 Pulse Rate [ From Monitor] Respiratory 26 H 26 H 26 H Rate Blood Pressure 100/55 98/55 98/55 O2 Sat by Pulse 95 95 95 Oximetry 07/19/19 07/19/19 07/19/19 00:15 00:30 00:36 Temperature Pulse Rate 84 87 87 Pulse Rate [ From Monitor] Respiratory 26 H 26 H Rate Blood Pressure 100/56 100/57 100/87 O2 Sat by Pulse 95 95 95 Oximetry 07/19/19 07/19/19 07/19/19 00:45 01:00 01:15 Temperature Pulse Rate 88 87 88 Pulse Rate [ From Monitor] Respiratory 25 H 26 H 26 H Rate Blood Pressure 102/57 105/56 101/58 O2 Sat by Pulse 93 93 93 Oximetry 07/19/19 07/19/19 07/19/19 01:30 01:35 01:45 Temperature Pulse Rate 88 87 87 Pulse Rate [ From Monitor] Respiratory 26 H 26 H 26 H Rate Blood Pressure 103/58 102/54 O2 Sat by Pulse 94 96 93 Oximetry 07/19/19 07/19/19 07/19/19 02:00 02:15 02:30 Temperature Pulse Rate 90 86 90 Pulse Rate [ From Monitor] Respiratory 26 H 26 H 26 H Rate Blood Pressure 99/54 106/49 105/51 O2 Sat by Pulse 93 92 93 Oximetry 07/19/19 07/19/19 07/19/19 02:45 03:00 03:15 Temperature Pulse Rate 85 84 88 Pulse Rate [ From Monitor] Respiratory 26 H 26 H 26 H Rate Blood Pressure 100/53 101/56 99/61 O2 Sat by Pulse 93 93 92 Oximetry 07/19/19 07/19/19 07/19/19 03:24 03:29 03:30 Temperature 99.8 F H Pulse Rate 84 83 Pulse Rate [ From Monitor] Respiratory 26 H 26 H Rate Blood Pressure 95/55 O2 Sat by Pulse 96 93 Oximetry 07/19/19 07/19/19 07/19/19 03:40 03:45 04:00 Temperature Pulse Rate 82 82 84 Pulse Rate [ From Monitor] Respiratory 26 H 26 H Rate Blood Pressure 95/55 98/57 97/58 O2 Sat by Pulse 94 93 93 Oximetry 07/19/19 07/19/19 07/19/19 04:15 04:30 04:45 Temperature Pulse Rate 82 83 84 Pulse Rate [ From Monitor] Respiratory 26 H 26 H 26 H Rate Blood Pressure 98/58 98/59 102/62 O2 Sat by Pulse 93 94 93 Oximetry 07/19/19 07/19/19 07/19/19 05:00 05:15 05:30 Temperature Pulse Rate 83 82 86 Pulse Rate [ From Monitor] Respiratory 26 H 26 H 26 H Rate Blood Pressure 98/57 98/59 107/57 O2 Sat by Pulse 94 94 93 Oximetry 07/19/19 07/19/19 07/19/19 05:45 06:00 06:15 Temperature Pulse Rate 84 84 86 Pulse Rate [ From Monitor] Respiratory 26 H 26 H 26 H Rate Blood Pressure 103/55 104/57 105/60 O2 Sat by Pulse 94 94 94 Oximetry 07/19/19 07/19/19 07/19/19 06:16 06:30 06:45 Temperature Pulse Rate 84 81 81 Pulse Rate [ From Monitor] Respiratory 26 H 26 H Rate Blood Pressure 104/56 96/57 O2 Sat by Pulse 94 94 Oximetry 07/19/19 07/19/19 07/19/19 07:00 07:15 07:30 Temperature Pulse Rate 83 80 81 Pulse Rate [ From Monitor] Respiratory 26 H 26 H 26 H Rate Blood Pressure 96/58 96/57 96/57 O2 Sat by Pulse 94 94 94 Oximetry 07/19/19 07/19/19 07/19/19 07:45 07:54 08:00 Temperature 97.9 F Pulse Rate 82 85 81 Pulse Rate [ 82 From Monitor] Respiratory 26 H 26 H Rate Blood Pressure 97/58 97/58 105/58 O2 Sat by Pulse 94 98 94 Oximetry 07/19/19 07/19/19 07/19/19 08:15 08:30 08:45 Temperature Pulse Rate 80 80 81 Pulse Rate [ From Monitor] Respiratory 26 H 26 H 26 H Rate Blood Pressure 104/58 102/59 95/55 O2 Sat by Pulse 93 94 92 Oximetry - General Appearance General appearance: well-developed, appears stated age, sedated on ventilator, intubated EENT: ATNC, mucous membranes moist Neck: no JVD Respiratory: Present: Clear to Ascultation Cardiology: regular, S1S2 Gastrointestinal: normoactive bowel sounds Integumentary: no rash, other (no edema ) Neurologic: other (intubated, sedated ) - Lab 07/19/19 08:15 07/19/19 08:15 Most recent lab results ABG pH 7.296 pH Units (7.350-7.450) L 07/19/19 03:35 ABG pCO2 55.5 mm Hg 07/19/19 03:35 ABG pO2 78.7 mm Hg (80.0-90.0) L 07/19/19 03:35 ABG HCO3 26.4 mmol/L (20.0-26.0) H 07/19/19 03:35 ABG O2 Saturation 95.0 % (95.0-99.0) 07/19/19 03:35 Calcium 6.6 mg/dL (8.4-10.2) L 07/19/19 08:15 76.6 mg/dL (0.1-20.0) H 07/16/19 14:30 39 mmol/L 07/16/19 14:30 Medications & Allergies - Medications Allergies/Adverse Reactions: Allergies latex Allergy (Verified 06/28/19 17:11) Anaphylaxis tramadol [From Ultram] Allergy (Verified 06/28/19 17:10) Unknown haloperidol [From Haldol] Adverse Reaction (Verified 07/17/19 05:55) Shortness of Breath agitation/combative ketorolac [From Toradol] Adverse Reaction (Verified 06/28/19 17:10) Seizure prochlorperazine [From Compazine] Adverse Reaction (Verified 06/28/19 17:11) Unknown Home Medications: Home Medications Medication Instructions Recorded Confirmed Last Taken Type No Known Home Medications [No 07/16/19 07/16/19 Unknown History Reported Home Medications] Active Medications: Generic Name Dose Route Start Last Admin Trade Name Freq PRN Reason Stop Dose Admin Acetaminophen 650 mg 07/16/19 05:36 Tylenol PO Q4H PRN Pain MILD(1-3)/Fever >100.5/WHALEN Albuterol 2.5 mg 07/16/19 22:48 07/16/19 23:01 Proventil IH 2.5 mg Q4HRT PRN Administration Shortness Of Breath Lipase/Protease/Amylase 1 each 07/18/19 14:[address] 10,500 Unit FEEDTUBE PRN PRN For Clogged Feeding Tube Dextrose 50 ml 07/17/19 03:17 07/17/19 05:30 D50w (25gm) Syringe IV 50 ml PRN PRN Administration Hypoglycemia Enoxaparin Sodium 30 mg 07/16/19 10:00 07/18/19 10:57 Lovenox SUB-Q 30 mg QDAY KASEI Administration Famotidine 20 mg 07/17/19 10:00 07/18/19 10:56 Pepcid IV 20 mg DAILY KASIE Administration Fentanyl 50 mcg 07/17/19 03:18 07/17/19 04:53 Sublimaze IV 50 mcg Q10MIN PRN Administration ANALGESIA Hydromorphone HCl 0.25 mg 07/16/19 05:36 07/16/19 21:18 Dilaudid IV 0.25 mg Q3H PRN Administration Pain, Moderate (4-6) Hydrophilic Ointment 1 applic 07/17/19 03:18 Vaseline Lip Therapy TP Q2HR PRN Dry Lips Vasopressin 20 unit/ Sodium 101 mls @ 9.09 mls/hr 07/16/19 20:00 07/19/19 01:35 Chloride IV 0.03 units/min TITR KASIE 9.09 mls/hr Administration Protocol 0.03 UNITS/MIN Norepinephrine 8 mg/ Sodium 250 mls @ 3.75 mls/hr 07/16/19 21:00 07/19/19 08:15 Chloride IV 18 mcg/min TITR KASIE 33.75 mls/hr Administration Protocol 2 MCG/MIN Midazolam HCl 100 mg/ Sodium 100 mls @ 2 mls/hr 07/17/19 04:00 07/19/19 03:06 Chloride IV 0 mg/hr TITR KASIE 0 mls/hr Titration Protocol 2 MG/HR Fentanyl Citrate 2,000 mcg in 100 mls @ 3.4 mls/hr 07/17/19 04:00 07/19/19 00:36 Fentanyl Drip Premix IV 1 mcg/kg/hr TITR KASIE 3.4 mls/hr Titration Protocol 1 MCG/KG/HR Vancomycin HCl 1 gm in 250 mls @ 167.007 mls/hr 07/17/19 10:00 07/18/19 10:57 Vancomycin/Ns 1 Gm/250 Ml IV 167.007 mls/hr Q24HR KASIE Administration Phenylephrine HCl 100 mg/ 100 mls @ 3 mls/hr 07/17/19 09:30 07/18/19 15:50 Sodium Chloride IV 0 mcg/min TITR KASIE 0 mls/hr Titration Protocol 50 MCG/MIN Meropenem 1,000 mg/ Sodium 100 mls @ 100 mls/hr 07/17/19 14:00 07/19/19 05:00 Chloride IV 100 mls/hr Q8HR KASIE Administration Protocol Sodium Bicarbonate 75 meq/ 1,075 mls @ 100 mls/hr 07/18/19 12:00 07/18/19 23:23 Dextrose IV 100 mls/hr DIRECT KASIE Administration Midazolam HCl 2 mg 07/17/19 03:18 07/17/19 04:53 Versed IV 2 mg Q10MIN PRN Administration Sedation Multi-Ingred Cream/Lotion/Oil/Oint 1 applic 07/17/19 03:18 Artificial Tears Ophth Oint OU Q4HR PRN Dry Eye(s) Nicotine 14 mg 07/16/19 10:00 07/18/19 10:56 Habitrol TD 14 mg QDAY KASIE Administration Ondansetron HCl 4 mg 07/16/19 05:36 07/16/19 21:16 Zofran IV 4 mg Q8H PRN Administration Nausea And Vomiting Oxycodone/Acetaminophen 1 tab 07/16/19 05:36 07/16/19 12:33 Percocet 5/325 PO 1 tab Q6H PRN Administration Pain, Moderate (4-6) Simple Syrup 15 ml 07/18/19 14:34 Simple Syrup FEEDTUBE PRN PRN Hypoglycemia Simple Syrup 30 ml 07/18/19 14:34 Simple Syrup FEEDTUBE PRN PRN Hypoglycemia Sodium Bicarbonate 325 mg 07/18/19 14:34 Sodium Bicarbonate FEEDTUBE PRN PRN For Clogged Feeding Tube Sodium Chloride 10 ml 07/16/19 10:00 07/18/19 22:00 Sodium Chloride Flush Syringe 10 Ml IV 10 ml BID KASIE Administration Sodium Chloride 10 ml 07/16/19 05:36 Sodium Chloride Flush Syringe 10 Ml IV PRN PRN LINE FLUSH
[2019-07-19] MEDS: HABITROL TD SCH (10:46)
[2019-07-19] MEDS: PEPCID IV SCH (10:46)
[2019-07-19] MEDS: SODIUM CHLORIDE FLUSH SYRINGE 10 ML IV SCH ×2 (10:47→23:36)
[2019-07-19] MEDS: VANCOMYCIN/NS 1 GM/250 ML 1 GM/250 ML BAG IV SCH (10:47)
[2019-07-19] MEDS: LOVENOX SUB-Q SCH (10:47)
[2019-07-19] MEDS: D5/0.45NS 1,000 ML IV SCH ×2 (10:48→23:27)
--- NOTE | 2019-07-19 11:01 | Progress Note ---
Assessment and Plan - Patient Problems (1) Acute pyelonephritis Current Visit: Yes Status: Acute (2) Acute respiratory failure Current Visit: Yes Status: Acute (3) Cellulitis of right foot Current Visit: Yes Status: Resolved (4) Elevated LFTs Current Visit: Yes Status: Acute (5) Sepsis Current Visit: Yes Status: Acute Subjective Principal diagnosis: Acute respiratory failure Interval history: on minimal sedation / versed off on fentanyl off [place]. Still on vaso and levo - being weaned On vent TF started Objective Vital Signs - 12hr 07/18/19 07/18/19 07/18/19 23:00 23:15 23:30 Temperature Pulse Rate 86 90 87 Pulse Rate [ From Monitor] Respiratory 26 H 25 H 25 H Rate Blood Pressure 101/55 101/57 102/56 O2 Sat by Pulse 95 95 94 Oximetry 07/18/19 07/18/19 07/18/19 23:37 23:45 23:52 Temperature Pulse Rate 84 86 86 Pulse Rate [ From Monitor] Respiratory 26 H 26 H 26 H Rate Blood Pressure 102/56 100/55 O2 Sat by Pulse 95 94 96 Oximetry 07/18/19 07/19/19 07/19/19 23:53 00:00 00:04 Temperature 100 F H Pulse Rate 84 83 86 Pulse Rate [ From Monitor] Respiratory 26 H 26 H 26 H Rate Blood Pressure 100/55 98/55 98/55 O2 Sat by Pulse 95 95 95 Oximetry 07/19/19 07/19/19 07/19/19 00:15 00:30 00:36 Temperature Pulse Rate 84 87 87 Pulse Rate [ From Monitor] Respiratory 26 H 26 H Rate Blood Pressure 100/56 100/57 100/87 O2 Sat by Pulse 95 95 95 Oximetry 07/19/19 07/19/19 07/19/19 00:45 01:00 01:15 Temperature Pulse Rate 88 87 88 Pulse Rate [ From Monitor] Respiratory 25 H 26 H 26 H Rate Blood Pressure 102/57 105/56 101/58 O2 Sat by Pulse 93 93 93 Oximetry 07/19/19 07/19/19 07/19/19 01:30 01:35 01:45 Temperature Pulse Rate 88 87 87 Pulse Rate [ From Monitor] Respiratory 26 H 26 H 26 H Rate Blood Pressure 103/58 102/54 O2 Sat by Pulse 94 96 93 Oximetry 07/19/19 07/19/19 07/19/19 02:00 02:15 02:30 Temperature Pulse Rate 90 86 90 Pulse Rate [ From Monitor] Respiratory 26 H 26 H 26 H Rate Blood Pressure 99/54 106/49 105/51 O2 Sat by Pulse 93 92 93 Oximetry 07/19/19 07/19/19 07/19/19 02:45 03:00 03:15 Temperature Pulse Rate 85 84 88 Pulse Rate [ From Monitor] Respiratory 26 H 26 H 26 H Rate Blood Pressure 100/53 101/56 99/61 O2 Sat by Pulse 93 93 92 Oximetry 07/19/19 07/19/19 07/19/19 03:24 03:29 03:30 Temperature 99.8 F H Pulse Rate 84 83 Pulse Rate [ From Monitor] Respiratory 26 H 26 H Rate Blood Pressure 95/55 O2 Sat by Pulse 96 93 Oximetry 07/19/19 07/19/19 07/19/19 03:40 03:45 04:00 Temperature Pulse Rate 82 82 84 Pulse Rate [ From Monitor] Respiratory 26 H 26 H Rate Blood Pressure 95/55 98/57 97/58 O2 Sat by Pulse 94 93 93 Oximetry 07/19/19 07/19/19 07/19/19 04:15 04:30 04:45 Temperature Pulse Rate 82 83 84 Pulse Rate [ From Monitor] Respiratory 26 H 26 H 26 H Rate Blood Pressure 98/58 98/59 102/62 O2 Sat by Pulse 93 94 93 Oximetry 07/19/19 07/19/19 07/19/19 05:00 05:15 05:30 Temperature Pulse Rate 83 82 86 Pulse Rate [ From Monitor] Respiratory 26 H 26 H 26 H Rate Blood Pressure 98/57 98/59 107/57 O2 Sat by Pulse 94 94 93 Oximetry 07/19/19 07/19/19 07/19/19 05:45 06:00 06:15 Temperature Pulse Rate 84 84 86 Pulse Rate [ From Monitor] Respiratory 26 H 26 H 26 H Rate Blood Pressure 103/55 104/57 105/60 O2 Sat by Pulse 94 94 94 Oximetry 07/19/19 07/19/19 07/19/19 06:16 06:30 06:45 Temperature Pulse Rate 84 81 81 Pulse Rate [ From Monitor] Respiratory 26 H 26 H Rate Blood Pressure 104/56 96/57 O2 Sat by Pulse 94 94 Oximetry 07/19/19 07/19/19 07/19/19 07:00 07:15 07:30 Temperature Pulse Rate 83 80 81 Pulse Rate [ From Monitor] Respiratory 26 H 26 H 26 H Rate Blood Pressure 96/58 96/57 96/57 O2 Sat by Pulse 94 94 94 Oximetry 07/19/19 07/19/19 07/19/19 07:45 07:54 08:00 Temperature 97.9 F Pulse Rate 82 85 81 Pulse Rate [ 82 From Monitor] Respiratory 26 H 26 H Rate Blood Pressure 97/58 97/58 105/58 O2 Sat by Pulse 94 98 94 Oximetry 07/19/19 07/19/19 07/19/19 08:15 08:30 08:45 Temperature Pulse Rate 80 80 81 Pulse Rate [ From Monitor] Respiratory 26 H 26 H 26 H Rate Blood Pressure 104/58 102/59 95/55 O2 Sat by Pulse 93 94 92 Oximetry Constitutional: other (sedated, critically ill on ventilator. Opens eyes to tactile stimule) Eyes: non-icteric ENT: oropharynx moist Neck: supple Effort: other (tachypneic 2/2 vent) Ascultation: Bilateral: other (coarse equal BS bilaterally) Cardiovascular: regular rate and rhythm (no mrg) Gastrointestinal: normoactive bowel sounds, soft, non-tender, non-distended Integumentary: normal Extremities: no cyanosis, no edema, pink and warm Neurologic: other (sedated opens eyes to tactile stimuli) Psychiatric: other (unable to obtain) CBC and BMP: 07/19/19 08:15 07/19/19 08:15 ABG, PT/INR, D-dimer: ABG POC ABG pH 7.239 (7.35-7.45) L 07/18/19 05:51 ABG pH 7.296 pH Units (7.350-7.450) L 07/19/19 03:35 POC ABG pCO2 56.9 (35-45) H 07/18/19 05:51 ABG pCO2 55.5 mm Hg 07/19/19 03:35 POC ABG pO2 88 (80-105) 07/18/19 05:51 ABG pO2 78.7 mm Hg (80.0-90.0) L 07/19/19 03:35 POC ABG HCO3 24.3 (22-26 mml/L) 07/18/19 05:51 POC ABG Total CO2 26 (23-27mmol/L) 07/18/19 05:51 POC ABG O2 Sat 95 07/18/19 05:51 ABG O2 Saturation 95.0 % (95.0-99.0) 07/19/19 03:35 PT/INR, D-dimer PT 16.3 Sec. (12.2-14.9) H 07/16/19 05:47 INR 1.35 (0.87-1.13) H 07/16/19 05:47 Abnormal lab findings: Abnormal Labs 07/16/19 07/16/19 07/16/19 02:01 02:01 02:01 WBC 11.7 H RBC Plt Count 101 L Seg Neuts % (Manual) 92.0 H Lymphocytes % (Manual) 5.0 L Monocytes % (Manual) Eosinophils % (Manual) Seg Neutrophils # Man 10.8 H Lymphocytes # (Manual) 0.6 L Monocytes # (Manual) Eosinophils # (Manual) PT 15.2 H INR 1.23 H POC ABG pH ABG pH POC ABG pCO2 POC ABG pO2 ABG pO2 ABG HCO3 ABG O2 Saturation ABG Base Excess ABG Hemoglobin Oxyhemoglobin Sodium Potassium Chloride Carbon Dioxide 18 L BUN 46 H Creatinine 2.2 H Glucose 116 H POC Glucose Lactic Acid Calcium Total Bilirubin AST 63 H ALT 125 H Total Protein 6.2 L Albumin 2.8 L Lipase Urine WBC (Auto) U Epithel Cells (Auto) Urine Creatinine 07/16/19 07/16/19 07/16/19 02:16 02:43 04:07 WBC RBC Plt Count Seg Neuts % (Manual) Lymphocytes % (Manual) Monocytes % (Manual) Eosinophils % (Manual) Seg Neutrophils # Man Lymphocytes # (Manual) Monocytes # (Manual) Eosinophils # (Manual) PT INR POC ABG pH ABG pH POC ABG pCO2 POC ABG pO2 ABG pO2 ABG HCO3 ABG O2 Saturation ABG Base Excess ABG Hemoglobin Oxyhemoglobin Sodium Potassium Chloride Carbon Dioxide BUN Creatinine Glucose POC Glucose Lactic Acid 2.10 H* 2.30 H* Calcium Total Bilirubin AST ALT Total Protein Albumin Lipase 6 L Urine WBC (Auto) U Epithel Cells (Auto) Urine Creatinine 07/16/19 07/16/19 07/16/19 05:47 05:59 14:30 WBC RBC Plt Count Seg Neuts % (Manual) Lymphocytes % (Manual) Monocytes % (Manual) Eosinophils % (Manual) Seg Neutrophils # Man Lymphocytes # (Manual) Monocytes # (Manual) Eosinophils # (Manual) PT 16.3 H INR 1.35 H POC ABG pH ABG pH POC ABG pCO2 POC ABG pO2 ABG pO2 ABG HCO3 ABG O2 Saturation ABG Base Excess ABG Hemoglobin Oxyhemoglobin Sodium Potassium Chloride Carbon Dioxide BUN Creatinine Glucose POC Glucose Lactic Acid Calcium Total Bilirubin AST ALT Total Protein Albumin Lipase Urine WBC (Auto) > 182.0 H U Epithel Cells (Auto) 21.0 H Urine Creatinine 76.6 H 07/16/19 07/17/19 07/17/19 23:27 00:03 00:03 WBC RBC Plt Count Seg Neuts % (Manual) Lymphocytes % (Manual) Monocytes % (Manual) Eosinophils % (Manual) Seg Neutrophils # Man Lymphocytes # (Manual) Monocytes # (Manual) Eosinophils # (Manual) PT INR POC ABG pH 7.093 L ABG pH POC ABG pCO2 32.8 L POC ABG pO2 66 L ABG pO2 ABG HCO3 ABG O2 Saturation ABG Base Excess ABG Hemoglobin Oxyhemoglobin Sodium 148 H D Potassium Chloride 120.5 H Carbon Dioxide 14 L BUN 35 H Creatinine 1.5 H Glucose 42 L POC Glucose Lactic Acid 2.90 H* Calcium 5.7 L* D Total Bilirubin AST ALT Total Protein Albumin Lipase Urine WBC (Auto) U Epithel Cells (Auto) Urine Creatinine 07/17/19 07/17/19 07/17/19 03:01 03:29 03:40 WBC 13.2 H RBC Plt Count 116 L Seg Neuts % (Manual) Lymphocytes % (Manual) 9.0 L Monocytes % (Manual) Eosinophils % (Manual) 24.0 H Seg Neutrophils # Man 8.6 H Lymphocytes # (Manual) Monocytes # (Manual) Eosinophils # (Manual) 3.2 H PT INR POC ABG pH 6.981 L ABG pH POC ABG pCO2 55.6 H POC ABG pO2 ABG pO2 ABG HCO3 ABG O2 Saturation ABG Base Excess ABG Hemoglobin Oxyhemoglobin Sodium Potassium Chloride Carbon Dioxide BUN Creatinine Glucose POC Glucose 64 L Lactic Acid Calcium Total Bilirubin AST ALT Total Protein Albumin Lipase Urine WBC (Auto) U Epithel Cells (Auto) Urine Creatinine 07/17/19 07/17/19 07/17/19 03:40 03:40 04:08 WBC RBC Plt Count Seg Neuts % (Manual) Lymphocytes % (Manual) Monocytes % (Manual) Eosinophils % (Manual) Seg Neutrophils # Man Lymphocytes # (Manual) Monocytes # (Manual) Eosinophils # (Manual) PT INR POC ABG pH 7.056 L ABG pH POC ABG pCO2 POC ABG pO2 63 L ABG pO2 ABG HCO3 ABG O2 Saturation ABG Base Excess ABG Hemoglobin Oxyhemoglobin Sodium 147 H Potassium Chloride 120.2 H Carbon Dioxide 14 L BUN 36 H Creatinine 1.6 H Glucose POC Glucose Lactic Acid 3.20 H* Calcium 6.0 L Total Bilirubin AST ALT Total Protein Albumin Lipase Urine WBC (Auto) U Epithel Cells (Auto) Urine Creatinine 07/17/19 07/17/19 07/17/19 05:33 05:45 06:51 WBC RBC Plt Count Seg Neuts % (Manual) Lymphocytes % (Manual) Monocytes % (Manual) Eosinophils % (Manual) Seg Neutrophils # Man Lymphocytes # (Manual) Monocytes # (Manual) Eosinophils # (Manual) PT INR POC ABG pH 7.061 L ABG pH POC ABG pCO2 49.0 H POC ABG pO2 ABG pO2 ABG HCO3 ABG O2 Saturation ABG Base Excess ABG Hemoglobin Oxyhemoglobin Sodium Potassium Chloride Carbon Dioxide BUN Creatinine Glucose POC Glucose 64 L 239 H Lactic Acid Calcium Total Bilirubin AST ALT Total Protein Albumin Lipase Urine WBC (Auto) U Epithel Cells (Auto) Urine Creatinine 07/17/19 07/17/19 07/17/19 10:57 12:56 18:11 WBC RBC Plt Count Seg Neuts % (Manual) Lymphocytes % (Manual) Monocytes % (Manual) Eosinophils % (Manual) Seg Neutrophils # Man Lymphocytes # (Manual) Monocytes # (Manual) Eosinophils # (Manual) PT INR POC ABG pH ABG pH 7.192 L* POC ABG pCO2 POC ABG pO2 ABG pO2 67.5 L ABG HCO3 16.3 L ABG O2 Saturation 92.6 L ABG Base Excess -11.4 L ABG Hemoglobin Oxyhemoglobin 91.1 L Sodium Potassium Chloride Carbon Dioxide BUN Creatinine Glucose POC Glucose 107 H 122 H Lactic Acid Calcium Total Bilirubin AST ALT Total Protein Albumin Lipase Urine WBC (Auto) U Epithel Cells (Auto) Urine Creatinine 07/17/19 07/17/19 07/18/19 23:34 Unknown 04:00 WBC RBC Plt Count 85 L Seg Neuts % (Manual) 82.0 H Lymphocytes % (Manual) 2.0 L Monocytes % (Manual) 12.0 H Eosinophils % (Manual) Seg Neutrophils # Man Lymphocytes # (Manual) 0.2 L Monocytes # (Manual) 1.1 H Eosinophils # (Manual) PT INR POC ABG pH ABG pH 7.237 L POC ABG pCO2 POC ABG pO2 ABG pO2 142.4 H ABG HCO3 17.0 L ABG O2 Saturation ABG Base Excess -9.8 L ABG Hemoglobin Oxyhemoglobin Sodium Potassium Chloride Carbon Dioxide BUN Creatinine Glucose POC Glucose 136 H Lactic Acid Calcium Total Bilirubin AST ALT Total Protein Albumin Lipase Urine WBC (Auto) U Epithel Cells (Auto) Urine Creatinine 07/18/19 07/18/19 07/18/19 04:00 05:31 05:51 WBC RBC Plt Count Seg Neuts % (Manual) Lymphocytes % (Manual) Monocytes % (Manual) Eosinophils % (Manual) Seg Neutrophils # Man Lymphocytes # (Manual) Monocytes # (Manual) Eosinophils # (Manual) PT INR POC ABG pH 7.239 L ABG pH POC ABG pCO2 56.9 H POC ABG pO2 ABG pO2 ABG HCO3 ABG O2 Saturation ABG Base Excess ABG Hemoglobin Oxyhemoglobin Sodium 151 H Potassium 3.2 L D Chloride 114.7 H Carbon Dioxide BUN 42 H Creatinine 2.1 H Glucose 130 H POC Glucose 135 H Lactic Acid Calcium 6.0 L Total Bilirubin 2.10 H AST 59 H ALT 62 H Total Protein 4.8 L D Albumin 2.0 L Lipase Urine WBC (Auto) U Epithel Cells (Auto) Urine Creatinine 07/18/19 07/18/19 07/18/19 12:05 18:30 23:40 WBC RBC Plt Count Seg Neuts % (Manual) Lymphocytes % (Manual) Monocytes % (Manual) Eosinophils % (Manual) Seg Neutrophils # Man Lymphocytes # (Manual) Monocytes # (Manual) Eosinophils # (Manual) PT INR POC ABG pH ABG pH POC ABG pCO2 POC ABG pO2 ABG pO2 ABG HCO3 ABG O2 Saturation ABG Base Excess ABG Hemoglobin Oxyhemoglobin Sodium Potassium Chloride Carbon Dioxide BUN Creatinine Glucose POC Glucose 126 H 131 H 163 H Lactic Acid Calcium Total Bilirubin AST ALT Total Protein Albumin Lipase Urine WBC (Auto) U Epithel Cells (Auto) Urine Creatinine 08/07/19/19 07/19/19 03:35 04:57 08:15 WBC 11.1 H RBC 3.64 L Plt Count 71 L Seg Neuts % (Manual) Lymphocytes % (Manual) Monocytes % (Manual) Eosinophils % (Manual) Seg Neutrophils # Man Lymphocytes # (Manual) Monocytes # (Manual) Eosinophils # (Manual) PT INR POC ABG pH ABG pH 7.296 L POC ABG pCO2 POC ABG pO2 ABG pO2 78.7 L ABG HCO3 26.4 H ABG O2 Saturation ABG Base Excess ABG Hemoglobin 11.1 L Oxyhemoglobin 93.3 L Sodium Potassium Chloride Carbon Dioxide BUN Creatinine Glucose POC Glucose 170 H Lactic Acid Calcium Total Bilirubin AST ALT Total Protein Albumin Lipase Urine WBC (Auto) U Epithel Cells (Auto) Urine Creatinine 07/19/19 08:15 WBC RBC Plt Count Seg Neuts % (Manual) Lymphocytes % (Manual) Monocytes % (Manual) Eosinophils % (Manual) Seg Neutrophils # Man Lymphocytes # (Manual) Monocytes # (Manual) Eosinophils # (Manual) PT INR POC ABG pH ABG pH POC ABG pCO2 POC ABG pO2 ABG pO2 ABG HCO3 ABG O2 Saturation ABG Base Excess ABG Hemoglobin Oxyhemoglobin Sodium 146 H Potassium 2.9 L* Chloride 107.9 H Carbon Dioxide BUN 35 H Creatinine 1.5 H Glucose 156 H POC Glucose Lactic Acid Calcium 6.6 L Total Bilirubin AST ALT Total Protein Albumin Lipase Urine WBC (Auto) U Epithel Cells (Auto) Urine Creatinine Chest x-ray: report reviewed, image reviewed
[2019-07-19] MEDS ORDERED: POTASSIUM CHLORIDE FEEDTUBE ONE (11:06)
[2019-07-19] MEDS: KCL 20MEQ/100ML 20 MEQ/100 ML BAG IV SCH ×2 (12:29→15:26)
[2019-07-19] MEDS ORDERED: NACL 0.9% 250ML 250 ML IV ONE (15:14)
--- NOTE | 2019-07-19 16:43 | Progress Note ---
Assessment and Plan Assessment and plan: The high probability of a clinically significant, sudden or life threatening deterioration of the [] system(s) required my full and direct attention, intervention and personal management. The aggregate critical care time was [] minutes. This time is in addition to time spent performing reported procedures but includes the following: x[] Data Review and interpretation x[] Patient assessment and monitoring of vital signs [x] Documentation [x] Medication orders and management - Patient Problems (1) Malnutrition Current Visit: Yes Status: Acute Plan to address problem: Nutrition corrected by NG tube feedings. We'll need to consider alternative means of feeding if unable to wean patient. (2) Acute pyelonephritis Current Visit: Yes Status: Acute Plan to address problem: Clinical. To be improving. Decreased leukocytosis. She remains extremely ill. Remains on pressors sepsis improving somewhat. Intubated. Not waking up. Overall prognosis remains poor especially with the new diagnosis of ARDS (3) Cellulitis of right foot Current Visit: Yes Status: Resolved (4) Septic shock Current Visit: Yes Status: Acute Plan to address problem: A shunt with severe septic shock. Secondary to pyelonephritis. Escherichia co li. Sensitivities address. Antibiotics initiated. Continue supportive care. (5) Acute renal failure Current Visit: Yes Status: Acute Plan to address problem: Patient with acute renal failure. Hypokalemic. We'll correct it has not really been done. History Interval history: Patient remains intubated sedated currently on pressor support. Review transvaginal ultrasound. Ultrasound abdominal pelvis CT. Patient somewhat no new concerns per staff. Hospitalist Physical - Constitutional Vitals: Temp Pulse Resp BP Pulse Ox 100 F H 81 26 H 98/57 95 07/19/19 12:00 07/19/19 15:15 07/19/19 15:15 07/19/19 15:15 07/19/19 15:15 General appearance: Present: no acute distress, well-nourished - Neck Neck: Present: supple, normal ROM. Absent: enlarged thyroid, masses or JVD, cervical LAD - Respiratory Respiratory: bilateral: diminished, rhonchi - Cardiovascular Rhythm: regular - Extremities Extremities: no ischemia, pulses intact, pulses symmetrical, normal color Extremity abnormal: edema, erythema, pulses diminished Peripheral Pulses: within normal limits - Abdominal General gastrointestinal: soft, non-tender, normal bowel sounds, no hepatomegaly, no splenomegaly - Integumentary Integumentary: Present: clear, warm, dry - Neurologic Neurologic: focal deficits Results - Labs CBC & Chem 7: 07/19/19 08:15 07/19/19 08:15 Labs: Laboratory Last Values WBC 11.1 K/mm3 (4.5-11.0) H 07/19/19 08:15 RBC 3.64 M/mm3 (3.65-5.03) L 07/19/19 08:15 Hgb 10.9 gm/dl (10.1-14.3) 07/19/19 08:15 Hct 32.2 % (30.3-42.9) 07/19/19 08:15 MCV 89 fl (79-97) 07/19/19 08:15 MCH 30 pg (28-32) 07/19/19 08:15 MCHC 34 % (30-34) 07/19/19 08:15 RDW 14.8 % (13.2-15.2) 07/19/19 08:15 Plt Count 71 K/mm3 (140-440) L 07/19/19 08:15 Eos % (Auto) Heavy Duty Press Operator 07/17/19 03:40 Add Manual Diff Complete 07/18/19 04:00 Total Counted 100 07/18/19 04:00 Seg Neuts % (Manual) 82.0 % (40.0-70.0) H 07/18/19 04:00 3.0 % 07/18/19 04:00 2.0 % (13.4-35.0) L 07/18/19 04:00 Reactive Lymphs % (Man) 0 % 07/18/19 04:00 12.0 % (0.0-7.3) H 07/18/19 04:00 0 % (0.0-4.3) 07/18/19 04:00 0 % (0.0-1.8) 07/18/19 04:00 0 % 07/18/19 04:00 1.0 % 07/18/19 04:00 0 % 07/18/19 04:00 0 % 07/18/19 04:00 Nucleated RBC % Not Reportable 07/18/19 04:00 Seg Neutrophils # Man 7.6 K/mm3 (1.8-7.7) 07/18/19 04:00 Band Neutrophils # 0.3 K/mm3 07/18/19 04:00 0.2 K/mm3 (1.2-5.4) L 07/18/19 04:00 Abs React Lymphs (Man) 0.0 K/mm3 07/18/19 04:00 1.1 K/mm3 (0.0-0.8) H 07/18/19 04:00 0.0 K/mm3 (0.0-0.4) 07/18/19 04:00 0.0 K/mm3 (0.0-0.1) 07/18/19 04:00 0.0 K/mm3 07/18/19 04:00 0.1 K/mm3 07/18/19 04:00 0.0 K/mm3 07/18/19 04:00 Blast Cells # 0.0 K/mm3 07/18/19 04:00 WBC Morphology Not Reportable 07/18/19 04:00 Hypersegmented Neuts Not Reportable 07/18/19 04:00 Hyposegmented Neuts Not Reportable 07/18/19 04:00 Hypogranular Neuts Not Reportable 07/18/19 04:00 Not Reportable 07/18/19 04:00 Not Reportable 07/18/19 04:00 Not Reportable 07/18/19 04:00 Not Reportable 07/18/19 04:00 Not Reportable 07/18/19 04:00 Not Reportable 07/18/19 04:00 Consistent w auto 07/18/19 04:00 Not Reportable 07/18/19 04:00 Plt Clumps, EDTA Not Reportable 07/18/19 04:00 Not Reportable 07/18/19 04:00 Few 07/18/19 04:00 Not Reportable 07/18/19 04:00 Plt Morphology Comment Not Reportable 07/18/19 04:00 RBC Morphology Normal 07/18/19 04:00 Dimorphic RBCs Not Reportable 07/18/19 04:00 Not Reportable 07/18/19 04:00 Not Reportable 07/18/19 04:00 Not Reportable 07/18/19 04:00 Not Reportable 07/18/19 04:00 Not Reportable 07/18/19 04:00 Not Reportable 07/18/19 04:00 Not Reportable 07/18/19 04:00 Not Reportable 07/18/19 04:00 Not Reportable 07/18/19 04:00 Not Reportable 07/18/19 04:00 Not Reportable 07/18/19 04:00 Not Reportable 07/18/19 04:00 Not Reportable 07/18/19 04:00 Not Reportable 07/18/19 04:00 Not Reportable 07/18/19 04:00 Not Reportable 07/18/19 04:00 Not Reportable 07/18/19 04:00 Not Reportable 07/18/19 04:00 Not Reportable 07/18/19 04:00 Acanthocytes (Spur) Not Reportable 07/18/19 04:00 Rouleaux Not Reportable 07/18/19 04:00 Not Reportable 07/18/19 04:00 Not Reportable 07/18/19 04:00 Not Reportable 07/18/19 04:00 Not Reportable 07/18/19 04:00 Hem Pathologist Commnt No 07/18/19 04:00 PT 16.3 Sec. (12.2-14.9) H 07/16/19 05:47 INR 1.35 (0.87-1.13) H 07/16/19 05:47 APTT 32.4 Sec. (24.2-36.6) 07/16/19 05:47 POC ABG pH 7.239 (7.35-7.45) L 07/18/19 05:51 ABG pH 7.296 pH Units (7.350-7.450) L 07/19/19 03:35 POC ABG pCO2 56.9 (35-45) H 07/18/19 05:51 ABG pCO2 55.5 mm Hg 07/19/19 03:35 POC ABG pO2 88 (80-105) 07/18/19 05:51 ABG pO2 78.7 mm Hg (80.0-90.0) L 07/19/19 03:35 POC ABG HCO3 24.3 (22-26 mml/L) 07/18/19 05:51 ABG HCO3 26.4 mmol/L (20.0-26.0) H 07/19/19 03:35 POC ABG Total CO2 26 (23-27mmol/L) 07/18/19 05:51 POC ABG O2 Sat 95 07/18/19 05:51 ABG O2 Saturation 95.0 % (95.0-99.0) 07/19/19 03:35 ABG O2 Content 14.6 (0.0-44) 07/19/19 03:35 POC ABG Base Excess -3 ((-2) - (+3)mmol/L) 07/18/19 05:51 ABG Base Excess -0.7 mmol/L (-2.0-3.0) 07/19/19 03:35 ABG Hemoglobin 11.1 gm/dl (12.0-16.0) L 07/19/19 03:35 ABG Carboxyhemoglobin 1.3 % (0.0-5.0) 07/19/19 03:35 ABG Methemoglobin 0.5 % (0.0-1.5) 07/19/19 03:35 VBG pH 7.326 (7.320-7.420) 07/16/19 02:01 93.3 % (95.0-99.0) L 07/19/19 03:35 50 % 07/19/19 03:35 Sodium 146 mmol/L (137-145) H 07/19/19 08:15 Potassium 2.9 mmol/L (3.6-5.0) L* 07/19/19 08:15 Chloride 107.9 mmol/L (98-107) H 07/19/19 08:15 Carbon Dioxide 29 mmol/L (22-30) 07/19/19 08:15 12 mmol/L 07/19/19 08:15 BUN 35 mg/dL (7-17) H 07/19/19 08:15 1.5 mg/dL (0.7-1.2) H 07/19/19 08:15 Estimated GFR 38 ml/min 07/19/19 08:15 23 % 07/19/19 08:15 Glucose 156 mg/dL (65-100) H 07/19/19 08:15 POC Glucose 160 (70-105) H 07/19/19 12:34 4.9 % (4-6) 07/16/19 05:47 Lactic Acid 1.60 mmol/L (0.7-2.0) 07/18/19 06:18 Calcium 6.6 mg/dL (8.4-10.2) L 07/19/19 08:15 2.10 mg/dL (0.1-1.2) H 07/18/19 04:00 AST 59 units/L (5-40) H 07/18/19 04:00 ALT 62 units/L (7-56) H 07/18/19 04:00 76 units/L (35-129) 07/18/19 04:00 4.8 g/dL (6.3-8.2) L D 07/18/19 04:00 2.0 g/dL (3.9-5) L 07/18/19 04:00 0.7 % 07/18/19 04:00 6 units/L (13-60) L 07/16/19 02:16 HCG, Quant 0.920 mIU/mL (0-4) 07/16/19 02:16 Caity (Yellow) 07/16/19 05:59 Cloudy (Clear) 07/16/19 05:59 5.0 (5.0-7.0) 07/16/19 05:59 Ur Specific [place] 1.015 (1.003-1.030) 07/16/19 05:59 100 mg/dl mg/dL (Negative) 07/16/19 05:59 Neg mg/dL (Negative) 07/16/19 05:59 Neg mg/dL (Negative) 07/16/19 05:59 Mod (Negative) 07/16/19 05:59 Pos (Negative) 07/16/19 05:59 Neg (Negative) 07/16/19 05:59 < 2.0 mg/dL (<2.0) 07/16/19 05:59 Ur Leukocyte Esterase Lg (Negative) 07/16/19 05:59 > 182.0 /HPF (0.0-6.0) H 07/16/19 05:59 42.0 /HPF (0.0-6.0) 07/16/19 05:59 U Epithel Cells (Auto) 21.0 /HPF (0-13.0) H 07/16/19 05:59 1+ /HPF (Negative) 07/16/19 05:59 2+ /HPF 07/16/19 05:59 Ur Transition Epith Cell 1 /HPF 07/16/19 05:59 Few /HPF 07/16/19 05:59 76.6 mg/dL (0.1-20.0) H 07/16/19 14:30 39 mmol/L 07/16/19 14:30 Random Vancomycin 5.6 ug/mL (0-40.0) 07/17/19 03:40 Blood Type O POSITIVE 07/16/19 02:16 Antibody Screen Negative 07/16/19 02:16 - Imaging and Cardiology CT scan - abdomen: image reviewed CT scan - pelvis: image reviewed MRI - head: other (renal us. ) Venous US: report reviewed, other (as well as the ultrasound. ) Active Medications - Current Medications Current Medications: Generic Name Dose Route Start Last Admin Trade Name Freq PRN Reason Stop Dose Admin Acetaminophen 650 mg 07/16/19 05:36 Tylenol PO Q4H PRN Pain MILD(1-3)/Fever >100.5/WHALEN Albuterol 2.5 mg 07/16/19 22:48 07/16/19 23:01 Proventil IH 2.5 mg Q4HRT PRN Administration Shortness Of Breath Lipase/Protease/Amylase 1 each 07/18/19 14:[address] 10,500 Unit FEEDTUBE PRN PRN For Clogged Feeding Tube Dextrose 50 ml 07/17/19 03:17 07/17/19 05:30 D50w (25gm) Syringe IV 50 ml PRN PRN Administration Hypoglycemia Enoxaparin Sodium 30 mg 07/16/19 10:00 07/19/19 10:47 Lovenox SUB-Q 30 mg QDAY KASIE Administration Famotidine 20 mg 07/17/19 10:00 07/19/19 10:46 Pepcid IV 20 mg DAILY KASIE Administration Fentanyl 50 mcg 07/17/19 03:18 07/17/19 04:53 Sublimaze IV 50 mcg Q10MIN PRN Administration ANALGESIA Hydromorphone HCl 0.25 mg 07/16/19 05:36 07/16/19 21:18 Dilaudid IV 0.25 mg Q3H PRN Administration Pain, Moderate (4-6) Hydrophilic Ointment 1 applic 07/17/19 03:18 Vaseline Lip Therapy TP Q2HR PRN Dry Lips Vasopressin 20 unit/ Sodium 101 mls @ 9.09 mls/hr 07/16/19 20:00 07/19/19 13:15 Chloride IV 0.03 units/min TITR KASIE 9.09 mls/hr Administration Protocol 0.03 UNITS/MIN Norepinephrine 8 mg/ Sodium 250 mls @ 3.75 mls/hr 07/16/19 21:00 07/19/19 11:30 Chloride IV 8 mcg/min TITR KASIE 15 mls/hr Titration Protocol 2 MCG/MIN Midazolam HCl 100 mg/ Sodium 100 mls @ 2 mls/hr 07/17/19 04:00 07/19/19 03:06 Chloride IV 0 mg/hr TITR KASIE 0 mls/hr Titration Protocol 2 MG/HR Fentanyl Citrate 2,000 mcg in 100 mls @ 3.4 mls/hr 07/17/19 04:00 07/19/19 15:00 Fentanyl Drip Premix IV 2 mcg/kg/hr TITR KASIE 6.8 mls/hr Titration Protocol 1 MCG/KG/HR Vancomycin HCl 1 gm in 250 mls @ 167.007 mls/hr 07/17/19 10:00 07/19/19 10:47 Vancomycin/Ns 1 Gm/250 Ml IV 167.007 mls/hr Q24HR KASIE Administration Phenylephrine HCl 100 mg/ 100 mls @ 3 mls/hr 07/17/19 09:30 07/18/19 15:50 Sodium Chloride IV 0 mcg/min TITR KASIE 0 mls/hr Titration Protocol 50 MCG/MIN Meropenem 1,000 mg/ Sodium 100 mls @ 100 mls/hr 07/17/19 14:00 07/19/19 14:41 Chloride IV 100 mls/hr Q8HR KASIE Administration Protocol Dextrose/Sodium Chloride 1,000 mls @ 75 mls/hr 07/19/19 11:00 07/19/19 10:48 D5/0.45ns IV 75 mls/hr DIRECT KASIE Administration Midazolam HCl 2 mg 07/17/19 03:18 07/17/19 04:53 Versed IV 2 mg Q10MIN PRN Administration Sedation Multi-Ingred Cream/Lotion/Oil/Oint 1 applic 07/17/19 03:18 Artificial Tears Ophth Oint OU Q4HR PRN Dry Eye(s) Nicotine 14 mg 07/16/19 10:00 07/19/19 10:46 Habitrol TD 14 mg QDAY KASIE Administration Ondansetron HCl 4 mg 07/16/19 05:36 07/16/19 21:16 Zofran IV 4 mg Q8H PRN Administration Nausea And Vomiting Oxycodone/Acetaminophen 1 tab 07/16/19 05:36 07/16/19 12:33 Percocet 5/325 PO 1 tab Q6H PRN Administration Pain, Moderate (4-6) Simple Syrup 15 ml 07/18/19 14:34 Simple Syrup FEEDTUBE PRN PRN Hypoglycemia Simple Syrup 30 ml 07/18/19 14:34 Simple Syrup FEEDTUBE PRN PRN Hypoglycemia Sodium Bicarbonate 325 mg 07/18/19 14:34 Sodium Bicarbonate FEEDTUBE PRN PRN For Clogged Feeding Tube Sodium Chloride 10 ml 07/16/19 10:00 07/19/19 10:47 Sodium Chloride Flush Syringe 10 Ml IV 10 ml BID KASIE Administration Sodium Chloride 10 ml 07/16/19 05:36 Sodium Chloride Flush Syringe 10 Ml IV PRN PRN LINE FLUSH Nutrition/Malnutrition Assess - Dietary Evaluation Nutrition/Malnutrition Findings: Nutrition Notes Start: 07/17/19 10:47 Freq: Status: Active Protocol: Document 07/18/19 14:30 KACY (Rec: 07/18/19 14:33 [facility]- [id number]) Nutrition Notes Need for Assessment generated from: MD Order Initial or Follow up Brief Note Labs/Tests Na 151 K 3.2 BUN 42 Cr 2.1 Pertinent Medications Pt on three pressors at this time Subjective/Other Information RD consulted for TF. Pt remains on vent support. Nutrition Intervention Nutrition Support: Promote at 70ml/hr with 300ml water flush q4h until hypernatremia resolved. Once hypernatremia resolved, 50ml water flush q4h. Kcal 1,680 Protein (gm) 105 Carbohydrates (gm) 218 Fat (gm) 44 Fluid (mL) 1,410 Fiber (gm) 0 Follow-Up By: 07/20/19 Additional Comments F/U: new TF, vent status
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
[2019-07-19] MEDS ORDERED: MAGNESIUM SULFATE 1 GM in NACL 0.9% 50 ML IV ONE (21:51)
[2019-07-19] MEDS: KCL 10MEQ/100ML 10 MEQ/100 ML BAG IV SCH ×2 (22:09→23:20)
[2019-07-19] MEDS: DILAUDID IV PRN (23:20)
[2019-07-20] MEDS: FREE WATER PO SCH ×6 (00:14→20:00)
[2019-07-20] MEDS: KCL 10MEQ/100ML 10 MEQ/100 ML BAG IV SCH (00:14)
--- NOTE | 2019-07-20 03:04 | XRay Report ---
CHEST 1 VIEW 2:24 AM INDICATION / CLINICAL INFORMATION: Follow up respiratory failure. COMPARISON: Yesterday. FINDINGS: SUPPORT DEVICES: The positions of the endotracheal tube, feeding tube and right jugular CVL have not changed. HEART / MEDIASTINUM: Unchanged. LUNGS / PLEURA: Moderately severe diffuse bilateral parenchymal disease has shown slight improvement. No pneumothorax. ADDITIONAL FINDINGS: No significant additional findings. IMPRESSION: Slight improvement in moderately severe diffuse bilateral parenchymal disease. Signer Name: Parag Navarrete MD Signed: 07/20/2019 3:00 AM Workstation Name: [id number]
[2019-07-20 05:23] LABS: ABG Base Excess 0.8 mmol/L (-2.0-3.0); ABG HCO3 27.9 mmol/L (20.0-26.0); ABG Methemoglobin 0.5 % (0.0-1.5); ABG Oxygen Saturation 95.8 % (95.0-99.0); ABG PCO2 55.9 mm Hg; ABG PH 7.316 pH Units (7.350-7.450); ABG PO2 87.4 mm Hg (80.0-90.0)
[2019-07-20] MEDS: MERREM 1,000 MG in NACL 0.9% 100 ML IV SCH (06:00)
[2019-07-20] MEDS ORDERED: MAGNESIUM SULFATE 4GM/100ML 4 GM/100 ML BAG IV ONE (08:00)
[2019-07-20] MEDS ORDERED: POTASSIUM CHLORIDE FEEDTUBE SCH (08:00)
[2019-07-20 08:06] LABS: Hematocrit 30.9 % (30.3-42.9); Hemoglobin 10.6 gm/dl (10.1-14.3); Mean Corpuscular HGB Conc 34 % (30-34); Mean Corpuscular Volume 88 fl (79-97); Red Blood Count 3.51 M/mm3 (3.65-5.03); Red Cell Distribution Width 14.7 % (13.2-15.2)
[2019-07-20] MEDS: fentaNYL DRIP Premix 2,000 MCG/100 ML BAG IV SCH ×2 (08:16→19:02)
[2019-07-20 08:20] LABS: Platelet Count 56 K/mm3 (140-440)
[2019-07-20 08:24] LABS: BUN/Creatinine Ratio 30; Blood Urea Nitrogen 30 mg/dL (7-17); Calcium 7.3 mg/dL (8.4-10.2); Hemolysis Index 1
[2019-07-20] MEDS ORDERED: POTASSIUM CHLORIDE FEEDTUBE ONE (09:00)
[2019-07-20 09:09] LABS: Band Neutrophils # (Manual) 0.4 K/mm3; Basophils % (Manual) 0 % (0.0-1.8); Eosinophils % (Manual) 0 % (0.0-4.3); Total Cells Counted 100
[2019-07-20 09:10] LABS: Platelet Estimate Consistent w Auto; RBC Morphology Normal
[2019-07-20] MEDS: HABITROL TD SCH (09:15)
[2019-07-20] MEDS: VANCOMYCIN/NS 1 GM/250 ML 1 GM/250 ML BAG IV SCH ×2 (09:15→23:30)
[2019-07-20] MEDS: PEPCID PO SCH ×2 (09:16→23:25)
--- NOTE | 2019-07-20 09:51 | Progress Note ---
Assessment and Plan Assessment and plan: - Patient Problems --Acute hypoxic respiratory failure; requiring intubation Continue ventilatory support , nebulizers, supportive care Pulmonary critical following, twean as tolerated and extubate -- Septic shock Current Visit: Yes Status: Acute. Plan to address problem: Sepsis with severe septic shock. Secondary to pyelonephritis. Escherichia coli. Continue plan vancomycin and Rocephin ,follow cultures and ID evaluation and recommendations appreciated -- Acute pyelonephritis Current Visit: Yes Status: Acute Plan to address problem: Clinical. To be improving. Decreased leukocytosis. She remains extremely ill. Remains on pressors sepsis improving somewhat. Intubated. Not waking up. Overall prognosis remains poor especially with the new diagnosis of ARDS -- Cellulitis of right foot Current Visit: Yes Status: Resolved --Acute renal failure Current Visit: Yes Status: Acute Plan to address problem: Patient with acute renal failure. Hypokalemic. We'll correct it has not really been done. -- Malnutrition Current Visit: Yes Status: Acute Plan to address problem: Nutrition corrected by NG tube feedings. We'll need to consider alternative means of feeding if unable to wean patient. The high probability of a clinically significant, sudden or life threatening deterioration of the [pulmonary, renal, infectious, metabolic] system(s) required my full and direct attention, intervention and personal management. The aggregate critical care time was [35] minutes. This time is in addition to time spent performing reported procedures but includes the following: x[] Data Review and interpretation x[] Patient assessment and monitoring of vital signs [x] Documentation [x] Medication orders and management Monitor closely and adjust management as needed Confidence and recommendations noted and appreciated Plan of care discussed with the patient's family, and the case management History Interval history: Patient seen and examined medical records reviewed Orally intubated on ventilatory support Hypotensive on vasopressor Sepsis on antibiotics Vital signs noted Hospitalist Physical - Constitutional Vitals: Temp Pulse Resp BP Pulse Ox 97.2 F L 83 21 102/60 95 07/20/19 08:00 07/20/19 09:00 07/20/19 09:00 07/20/19 09:00 07/20/19 09:00 General appearance: Present: no acute distress, well-nourished, other (intubated on ventilatory support and sedated) - EENT Eyes: Present: PERRL, EOM intact - Neck Neck: Present: supple, normal ROM - Respiratory Respiratory effort: labored Respiratory: bilateral: diminished, rhonchi, negative: rales, wheezing - Cardiovascular Rhythm: regular Heart Sounds: Present: S1 & S2 - Extremities Extremities: no ischemia, abnormal (cellulitis lower extremity) Extremity abnormal: edema - Abdominal General gastrointestinal: soft, non-tender, non-distended, normal bowel sounds - Integumentary Integumentary: Present: clear, warm - Psychiatric Psychiatric: other (intubated on vent) - Neurologic Neurologic: other (intubated on vent) Results - Labs CBC & Chem 7: 07/21/19 05:00 07/21/19 05:00 Labs: Laboratory Last Values WBC 12.6 K/mm3 (4.5-11.0) H 07/20/19 07:50 RBC 3.51 M/mm3 (3.65-5.03) L 07/20/19 07:50 Hgb 10.6 gm/dl (10.1-14.3) 07/20/19 07:50 Hct 30.9 % (30.3-42.9) 07/20/19 07:50 MCV 88 fl (79-97) 07/20/19 07:50 MCH 30 pg (28-32) 07/20/19 07:50 MCHC 34 % (30-34) 07/20/19 07:50 RDW 14.7 % (13.2-15.2) 07/20/19 07:50 Plt Count 56 K/mm3 (140-440) L 07/20/19 07:50 Eos % (Auto) Developer Relations Manager 07/17/19 03:40 Add Manual Diff Complete 07/20/19 07:50 Total Counted 100 07/20/19 07:50 Seg Neuts % (Manual) 89.0 % (40.0-70.0) H 07/20/19 07:50 3.0 % 07/20/19 07:50 5.0 % (13.4-35.0) L 07/20/19 07:50 Reactive Lymphs % (Man) 0 % 07/20/19 07:50 3.0 % (0.0-7.3) 07/20/19 07:50 0 % (0.0-4.3) 07/20/19 07:50 0 % (0.0-1.8) 07/20/19 07:50 0 % 07/20/19 07:50 0 % 07/20/19 07:50 0 % 07/20/19 07:50 0 % 07/20/19 07:50 Nucleated RBC % Not Reportable 07/20/19 07:50 Seg Neutrophils # Man 11.2 K/mm3 (1.8-7.7) H 07/20/19 07:50 Band Neutrophils # 0.4 K/mm3 07/20/19 07:50 0.6 K/mm3 (1.2-5.4) L 07/20/19 07:50 Abs React Lymphs (Man) 0.0 K/mm3 07/20/19 07:50 0.4 K/mm3 (0.0-0.8) 07/20/19 07:50 0.0 K/mm3 (0.0-0.4) 07/20/19 07:50 0.0 K/mm3 (0.0-0.1) 07/20/19 07:50 0.0 K/mm3 07/20/19 07:50 0.0 K/mm3 07/20/19 07:50 0.0 K/mm3 07/20/19 07:50 Blast Cells # 0.0 K/mm3 07/20/19 07:50 WBC Morphology Not Reportable 07/20/19 07:50 Hypersegmented Neuts Not Reportable 07/20/19 07:50 Hyposegmented Neuts Not Reportable 07/20/19 07:50 Hypogranular Neuts Not Reportable 07/20/19 07:50 Not Reportable 07/20/19 07:50 Not Reportable 07/20/19 07:50 Not Reportable 07/20/19 07:50 Not Reportable 07/20/19 07:50 Not Reportable 07/20/19 07:50 Not Reportable 07/20/19 07:50 Consistent w auto 07/20/19 07:50 Not Reportable 07/20/19 07:50 Plt Clumps, EDTA Not Reportable 07/20/19 07:50 Not Reportable 07/20/19 07:50 Not Reportable 07/20/19 07:50 Not Reportable 07/20/19 07:50 Plt Morphology Comment Not Reportable 07/20/19 07:50 RBC Morphology Normal 07/20/19 07:50 Dimorphic RBCs Not Reportable 07/20/19 07:50 Not Reportable 07/20/19 07:50 Not Reportable 07/20/19 07:50 Not Reportable 07/20/19 07:50 Not Reportable 07/20/19 07:50 Not Reportable 07/20/19 07:50 Not Reportable 07/20/19 07:50 Not Reportable 07/20/19 07:50 Not Reportable 07/20/19 07:50 Not Reportable 07/20/19 07:50 Not Reportable 07/20/19 07:50 Not Reportable 07/20/19 07:50 Not Reportable 07/20/19 07:50 Not Reportable 07/20/19 07:50 Not Reportable 07/20/19 07:50 Not Reportable 07/20/19 07:50 Not Reportable 07/20/19 07:50 Not Reportable 07/20/19 07:50 Not Reportable 07/20/19 07:50 Not Reportable 07/20/19 07:50 Acanthocytes (Spur) Not Reportable 07/20/19 07:50 Rouleaux Not Reportable 07/20/19 07:50 Not Reportable 07/20/19 07:50 Not Reportable 07/20/19 07:50 Not Reportable 07/20/19 07:50 Not Reportable 07/20/19 07:50 Hem Pathologist Commnt No 07/20/19 07:50 PT 16.3 Sec. (12.2-14.9) H 07/16/19 05:47 INR 1.35 (0.87-1.13) H 07/16/19 05:47 APTT 32.4 Sec. (24.2-36.6) 07/16/19 05:47 POC ABG pH 7.239 (7.35-7.45) L 07/18/19 05:51 ABG pH 7.316 pH Units (7.350-7.450) L 07/20/19 04:20 POC ABG pCO2 56.9 (35-45) H 07/18/19 05:51 ABG pCO2 55.9 mm Hg 07/20/19 04:20 POC ABG pO2 88 (80-105) 07/18/19 05:51 ABG pO2 87.4 mm Hg (80.0-90.0) 07/20/19 04:20 POC ABG HCO3 24.3 (22-26 mml/L) 07/18/19 05:51 ABG HCO3 27.9 mmol/L (20.0-26.0) H 07/20/19 04:20 POC ABG Total CO2 26 (23-27mmol/L) 07/18/19 05:51 POC ABG O2 Sat 95 07/18/19 05:51 ABG O2 Saturation 95.8 % (95.0-99.0) 07/20/19 04:20 ABG O2 Content 16.4 (0.0-44) 07/20/19 04:20 POC ABG Base Excess -3 ((-2) - (+3)mmol/L) 07/18/19 05:51 ABG Base Excess 0.8 mmol/L (-2.0-3.0) 07/20/19 04:20 ABG Hemoglobin 12.3 gm/dl (12.0-16.0) 07/20/19 04:20 ABG Carboxyhemoglobin 1.4 % (0.0-5.0) 07/20/19 04:20 ABG Methemoglobin 0.5 % (0.0-1.5) 07/20/19 04:20 VBG pH 7.326 (7.320-7.420) 07/16/19 02:01 94.0 % (95.0-99.0) L 07/20/19 04:20 80 % 07/20/19 04:20 Sodium 151 mmol/L (137-145) H 07/20/19 07:50 Potassium 3.4 mmol/L (3.6-5.0) L 07/20/19 07:50 Chloride 114.7 mmol/L (98-107) H 07/20/19 07:50 Carbon Dioxide 31 mmol/L (22-30) H 07/20/19 07:50 9 mmol/L 07/20/19 07:50 BUN 30 mg/dL (7-17) H 07/20/19 07:50 1.0 mg/dL (0.7-1.2) 07/20/19 07:50 Estimated GFR > 60 ml/min 07/20/19 07:50 30 % 07/20/19 07:50 Glucose 148 mg/dL (65-100) H 07/20/19 07:50 POC Glucose 141 (70-105) H 07/20/19 05:25 4.9 % (4-6) 07/16/19 05:47 Lactic Acid 1.60 mmol/L (0.7-2.0) 07/18/19 06:18 Calcium 7.3 mg/dL (8.4-10.2) L 07/20/19 07:50 Magnesium 1.50 mg/dL (1.7-2.3) L 07/19/19 Unknown 2.10 mg/dL (0.1-1.2) H 07/18/19 04:00 AST 59 units/L (5-40) H 07/18/19 04:00 ALT 62 units/L (7-56) H 07/18/19 04:00 76 units/L (35-129) 07/18/19 04:00 4.8 g/dL (6.3-8.2) L D 07/18/19 04:00 2.0 g/dL (3.9-5) L 07/18/19 04:00 0.7 % 07/18/19 04:00 6 units/L (13-60) L 07/16/19 02:16 HCG, Quant 0.920 mIU/mL (0-4) 07/16/19 02:16 Caity (Yellow) 07/16/19 05:59 Cloudy (Clear) 07/16/19 05:59 5.0 (5.0-7.0) 07/16/19 05:59 Ur Specific [place] 1.015 (1.003-1.030) 07/16/19 05:59 100 mg/dl mg/dL (Negative) 07/16/19 05:59 Neg mg/dL (Negative) 07/16/19 05:59 Neg mg/dL (Negative) 07/16/19 05:59 Mod (Negative) 07/16/19 05:59 Pos (Negative) 07/16/19 05:59 Neg (Negative) 07/16/19 05:59 < 2.0 mg/dL (<2.0) 07/16/19 05:59 Ur Leukocyte Esterase Lg (Negative) 07/16/19 05:59 > 182.0 /HPF (0.0-6.0) H 07/16/19 05:59 42.0 /HPF (0.0-6.0) 07/16/19 05:59 U Epithel Cells (Auto) 21.0 /HPF (0-13.0) H 07/16/19 05:59 1+ /HPF (Negative) 07/16/19 05:59 2+ /HPF 07/16/19 05:59 Ur Transition Epith Cell 1 /HPF 07/16/19 05:59 Few /HPF 07/16/19 05:59 76.6 mg/dL (0.1-20.0) H 07/16/19 14:30 39 mmol/L 07/16/19 14:30 Random Vancomycin 5.6 ug/mL (0-40.0) 07/17/19 03:40 Blood Type O POSITIVE 07/16/19 02:16 Antibody Screen Negative 07/16/19 02:16 Active Medications - Current Medications Current Medications: Generic Name Dose Route Start Last Admin Trade Name Freq PRN Reason Stop Dose Admin Acetaminophen 650 mg 07/16/19 05:36 Tylenol PO Q4H PRN Pain MILD(1-3)/Fever >100.5/WHALEN Albuterol 2.5 mg 07/16/19 22:48 07/16/19 23:01 Proventil IH 2.5 mg Q4HRT PRN Administration Shortness Of Breath Lipase/Protease/Amylase 1 each 07/18/19 14:34 Pancreaze 10,500 Unit FEEDTUBE PRN PRN For Clogged Feeding Tube Dextrose 50 ml 07/17/19 03:17 07/17/19 05:30 D50w (25gm) Syringe IV 50 ml PRN PRN Administration Hypoglycemia Enoxaparin Sodium 40 mg 07/20/19 10:00 Lovenox SUB-Q QDAY@1000 KASIE Famotidine 20 mg 07/20/19 10:00 07/20/19 09:16 Pepcid PO 20 mg BID KASIE Administration Fentanyl 50 mcg 07/17/19 03:18 07/17/19 04:53 Sublimaze IV 50 mcg Q10MIN PRN Administration ANALGESIA Hydromorphone HCl 0.25 mg 07/16/19 05:36 07/19/19 23:20 Dilaudid IV 0.25 mg Q3H PRN Administration Pain, Moderate (4-6) Hydrophilic Ointment 1 applic 07/17/19 03:18 Vaseline Lip Therapy TP Q2HR PRN Dry Lips Vasopressin 20 unit/ Sodium 101 mls @ 9.09 mls/hr 07/16/19 20:00 07/19/19 13:15 Chloride IV 0.03 units/min TITR KASIE 9.09 mls/hr Administration Protocol 0.03 UNITS/MIN Norepinephrine 8 mg/ Sodium 250 mls @ 3.75 mls/hr 07/16/19 21:00 07/20/19 07:00 Chloride IV 4 mcg/min TITR KASIE 7.5 mls/hr Titration Protocol 2 MCG/MIN Midazolam HCl 100 mg/ Sodium 100 mls @ 2 mls/hr 07/17/19 04:00 07/19/19 03:06 Chloride IV 0 mg/hr TITR KASIE 0 mls/hr Titration Protocol 2 MG/HR Fentanyl Citrate 2,000 mcg in 100 mls @ 3.4 mls/hr 07/17/19 04:00 07/20/19 08:16 Fentanyl Drip Premix IV 2 mcg/kg/hr TITR KASIE 6.8 mls/hr Administration Protocol 1 MCG/KG/HR Vancomycin HCl 1 gm in 250 mls @ 167.007 mls/hr 07/17/19 10:00 07/20/19 09:15 Vancomycin/Ns 1 Gm/250 Ml IV 167.007 mls/hr Q24HR KASIE Administration Phenylephrine HCl 100 mg/ 100 mls @ 3 mls/hr 07/17/19 09:30 07/18/19 15:50 Sodium Chloride IV 0 mcg/min TITR KASIE 0 mls/hr Titration Protocol 50 MCG/MIN Meropenem 1,000 mg/ Sodium 100 mls @ 100 mls/hr 07/17/19 14:00 07/20/19 06:00 Chloride IV 100 mls/hr Q8HR KASIE Administration Protocol Dextrose/Sodium Chloride 1,000 mls @ 75 mls/hr 07/19/19 11:00 07/19/19 23:27 D5/0.45ns IV 75 mls/hr DIRECT KASIE Administration Magnesium Sulfate 4 gm in 100 mls @ 25 mls/hr 07/20/19 08:00 07/20/19 08:11 Magnesium Sulfate 4gm/100ml IV 07/20/19 11:59 25 mls/hr ONCE ONE Administration Midazolam HCl 2 mg 07/17/19 03:18 07/17/19 04:53 Versed IV 2 mg Q10MIN PRN Administration Sedation Multi-Ingred Cream/Lotion/Oil/Oint 1 applic 07/17/19 03:18 Artificial Tears Ophth Oint OU Q4HR PRN Dry Eye(s) Nicotine 14 mg 07/16/19 10:00 07/20/19 09:15 Habitrol TD 14 mg QDAY KASIE Administration Ondansetron HCl 4 mg 07/16/19 05:36 07/16/19 21:16 Zofran IV 4 mg Q8H PRN Administration Nausea And Vomiting Oxycodone/Acetaminophen 1 tab 07/16/19 05:36 07/16/19 12:33 Percocet 5/325 PO 1 tab Q6H PRN Administration Pain, Moderate (4-6) Simple Syrup 15 ml 07/18/19 14:34 Simple Syrup FEEDTUBE PRN PRN Hypoglycemia Simple Syrup 30 ml 07/18/19 14:34 Simple Syrup FEEDTUBE PRN PRN Hypoglycemia Sodium Bicarbonate 325 mg 07/18/19 14:34 Sodium Bicarbonate FEEDTUBE PRN PRN For Clogged Feeding Tube Sodium Chloride 10 ml 07/16/19 10:00 07/19/19 23:36 Sodium Chloride Flush Syringe 10 Ml IV 10 ml BID KASIE Administration Sodium Chloride 10 ml 07/16/19 05:36 Sodium Chloride Flush Syringe 10 Ml IV PRN PRN LINE FLUSH Nutrition/Malnutrition Assess - Dietary Evaluation Nutrition/Malnutrition Findings: Nutrition Notes Start: 07/17/19 10:47 Freq: Status: Active Protocol: Document 07/18/19 14:30 KACY (Rec: 07/18/19 14:33 [facility] SRW- [id number]) Nutrition Notes Need for Assessment generated from: MD Order Initial or Follow up Brief Note Labs/Tests Na 151 K 3.2 BUN 42 Cr 2.1 Pertinent Medications Pt on three pressors at this time Subjective/Other Information RD consulted for TF. Pt remains on vent support. Nutrition Intervention Nutrition Support: Promote at 70ml/hr with 300ml water flush q4h until hypernatremia resolved. Once hypernatremia resolved, 50ml water flush q4h. Kcal 1,680 Protein (gm) 105 Carbohydrates (gm) 218 Fat (gm) 44 Fluid (mL) 1,410 Fiber (gm) 0 Follow-Up By: 07/20/19 Additional Comments F/U: new TF, vent status
--- NOTE | 2019-07-20 11:26 | Progress Note ---
Assessment and Plan - Patient Problems (1) Acute kidney injury (CRISTIAN) with acute tubular necrosis (ATN) Current Visit: Yes Status: Acute Plan to address problem: Kidney function has improved. Follow-up electrolytes and renal function (2) Pyelonephritis, acute Current Visit: Yes Status: Acute Plan to address problem: Continue antibiotics. (3) Hypernatremia Current Visit: Yes Status: Acute Plan to address problem: Hypernatremia is worse. Increase free water replacement. Change IV fluids to D5W and increase free water via feeding tube. (4) Hypokalemia Current Visit: Yes Status: Acute Plan to address problem: Supplement potassium and follow-up level. (5) Acute respiratory failure Current Visit: Yes Status: Acute Plan to address problem: Continue ventilator management (6) Elevated LFTs Current Visit: Yes Status: Acute Plan to address problem: Ischemic Hepatitis. Follow-up liver function tests (7) Septic shock Current Visit: Yes Status: Acute Plan to address problem: Improved. Continue antibiotics appropriately adjusted to the degree of renal function (8) Cellulitis of right foot Current Visit: Yes Status: Resolved Plan to address problem: Continue antibiotics Subjective Date of service: 07/20/19 Principal diagnosis: Acute respiratory failure Interval history: Patient seen lying in bed. Intubated on ventilator. Family at bedside. Not following commands. Agitated. Objective - Exam Narrative Exam: Young female lying in bed intubated on the ventilator HEENT: NCAT, endotracheal tube intact Neck: Supple, no venous distention CVS: S1S2 RRR with no murmur, rub or gallop Chest: Coarse breath sounds Abdomen: Protuberant, soft, nontender, no organomegaly, bowel sounds are present Extremities: mild edema and a dressing intact Neuro: Agitated, intubated and ventilated - Vital Signs Vital signs: Vital Signs - 12hr 07/19/19 07/19/19 07/19/19 23:30 23:43 23:45 Temperature Pulse Rate 101 H 99 H 97 H Pulse Rate [ From Monitor] Respiratory 26 H 15 16 Rate Blood Pressure 108/57 108/57 106/55 O2 Sat by Pulse 98 98 98 Oximetry 07/19/19 07/20/19 07/20/19 23:51 00:00 00:15 Temperature Pulse Rate 98 H 96 H 85 Pulse Rate [ From Monitor] Respiratory 22 13 12 Rate Blood Pressure 106/55 103/55 102/51 O2 Sat by Pulse 98 98 98 Oximetry 07/20/19 07/20/19 07/20/19 00:30 00:45 00:46 Temperature Pulse Rate 84 95 H 96 H Pulse Rate [ From Monitor] Respiratory 16 11 L Rate Blood Pressure 99/52 107/59 107/59 O2 Sat by Pulse 95 95 96 Oximetry 07/20/19 07/20/19 07/20/19 01:00 01:15 01:30 Temperature Pulse Rate 85 93 H 96 H Pulse Rate [ From Monitor] Respiratory 13 13 14 Rate Blood Pressure 101/55 106/59 112/48 O2 Sat by Pulse 96 96 97 Oximetry 07/20/19 07/20/19 07/20/19 01:45 02:00 02:15 Temperature Pulse Rate 98 H 96 H 95 H Pulse Rate [ From Monitor] Respiratory 13 11 L 11 L Rate Blood Pressure 107/58 107/58 103/60 O2 Sat by Pulse 96 96 97 Oximetry 07/20/19 07/20/19 07/20/19 02:30 02:45 03:00 Temperature Pulse Rate 97 H 96 H 95 H Pulse Rate [ From Monitor] Respiratory 13 15 12 Rate Blood Pressure 107/58 107/61 114/61 O2 Sat by Pulse 95 95 96 Oximetry 07/20/19 07/20/19 07/20/19 03:15 03:30 03:45 Temperature Pulse Rate 103 H 95 H 95 H Pulse Rate [ From Monitor] Respiratory 10 L 12 13 Rate Blood Pressure 116/66 105/59 108/59 O2 Sat by Pulse 95 96 95 Oximetry 07/20/19 07/20/19 07/20/19 03:50 04:00 04:15 Temperature 98.8 F Pulse Rate 97 H 101 H Pulse Rate [ From Monitor] Respiratory 12 13 Rate Blood Pressure 106/60 111/66 O2 Sat by Pulse 95 96 Oximetry 07/20/19 07/20/19 07/20/19 04:30 04:45 05:00 Temperature Pulse Rate 96 H 95 H 93 H Pulse Rate [ From Monitor] Respiratory 12 11 L 10 L Rate Blood Pressure 105/57 110/64 103/62 O2 Sat by Pulse 95 96 96 Oximetry 07/20/19 07/20/19 07/20/19 05:15 05:29 05:30 Temperature Pulse Rate 96 H 93 H 94 H Pulse Rate [ From Monitor] Respiratory 12 10 L Rate Blood Pressure 105/62 105/60 105/60 O2 Sat by Pulse 96 95 95 Oximetry 07/20/19 07/20/19 07/20/19 05:45 06:00 06:15 Temperature Pulse Rate 96 H 96 H 95 H Pulse Rate [ From Monitor] Respiratory 11 L 11 L 12 Rate Blood Pressure 108/62 109/62 109/63 O2 Sat by Pulse 96 96 96 Oximetry 07/20/19 07/20/19 07/20/19 06:30 06:45 07:00 Temperature Pulse Rate 97 H 97 H 97 H Pulse Rate [ From Monitor] Respiratory 14 12 9 L Rate Blood Pressure 109/65 112/62 114/63 O2 Sat by Pulse 94 95 95 Oximetry 07/20/19 07/20/19 07/20/19 07:15 07:30 07:43 Temperature Pulse Rate 84 97 H 86 Pulse Rate [ From Monitor] Respiratory 18 10 L Rate Blood Pressure 102/60 107/60 101/61 O2 Sat by Pulse 95 95 95 Oximetry 07/20/19 07/20/19 07/20/19 07:45 08:00 08:15 Temperature 97.2 F L Pulse Rate 84 84 83 Pulse Rate [ 82 From Monitor] Respiratory 14 10 L 13 Rate Blood Pressure 101/61 98/55 96/59 O2 Sat by Pulse 96 95 95 Oximetry 07/20/19 07/20/19 07/20/19 08:30 08:45 09:00 Temperature Pulse Rate 84 84 83 Pulse Rate [ From Monitor] Respiratory 17 13 21 Rate Blood Pressure 102/62 100/59 102/60 O2 Sat by Pulse 95 95 95 Oximetry 07/20/19 07/20/19 07/20/19 09:15 09:30 09:45 Temperature Pulse Rate 85 81 80 Pulse Rate [ From Monitor] Respiratory 11 L 18 16 Rate Blood Pressure 100/64 99/56 97/60 O2 Sat by Pulse 96 96 96 Oximetry 07/20/19 07/20/19 07/20/19 10:01 10:15 10:30 Temperature Pulse Rate 88 97 H 93 H Pulse Rate [ From Monitor] Respiratory 17 16 17 Rate Blood Pressure 53/32 111/61 107/57 O2 Sat by Pulse 88 94 94 Oximetry 07/20/19 07/20/19 07/20/19 10:45 10:56 11:00 Temperature Pulse Rate 95 H 91 H 91 H Pulse Rate [ From Monitor] Respiratory 15 16 Rate Blood Pressure 104/58 104/58 107/51 O2 Sat by Pulse 93 91 90 Oximetry 07/20/19 11:15 Temperature Pulse Rate 93 H Pulse Rate [ From Monitor] Respiratory 11 L Rate Blood Pressure 107/54 O2 Sat by Pulse 91 Oximetry - Lab 07/20/19 07:50 07/20/19 07:50 Most recent lab results ABG pH 7.316 pH Units (7.350-7.450) L 07/20/19 04:20 ABG pCO2 55.9 mm Hg 07/20/19 04:20 ABG pO2 87.4 mm Hg (80.0-90.0) 07/20/19 04:20 ABG HCO3 27.9 mmol/L (20.0-26.0) H 07/20/19 04:20 ABG O2 Saturation 95.8 % (95.0-99.0) 07/20/19 04:20 Calcium 7.3 mg/dL (8.4-10.2) L 07/20/19 07:50 Magnesium 1.50 mg/dL (1.7-2.3) L 07/19/19 Unknown 76.6 mg/dL (0.1-20.0) H 07/16/19 14:30 39 mmol/L 07/16/19 14:30 Medications & Allergies - Medications Allergies/Adverse Reactions: Allergies latex Allergy (Verified 06/28/19 17:11) Anaphylaxis tramadol [From Ultram] Allergy (Verified 06/28/19 17:10) Unknown haloperidol [From Haldol] Adverse Reaction (Verified 07/17/19 05:55) Shortness of Breath agitation/combative ketorolac [From Toradol] Adverse Reaction (Verified 06/28/19 17:10) Seizure prochlorperazine [From Compazine] Adverse Reaction (Verified 06/28/19 17:11) Unknown Home Medications: Home Medications Medication Instructions Recorded Confirmed Last Taken Type No Known Home Medications [No 07/16/19 07/16/19 Unknown History Reported Home Medications] Active Medications: Generic Name Dose Route Start Last Admin Trade Name Freq PRN Reason Stop Dose Admin Acetaminophen 650 mg 07/16/19 05:36 Tylenol PO Q4H PRN Pain MILD(1-3)/Fever >100.5/WHALEN Albuterol 2.5 mg 07/16/19 22:48 07/16/19 23:01 Proventil IH 2.5 mg Q4HRT PRN Administration Shortness Of Breath Lipase/Protease/Amylase 1 each 07/18/19 14:34 Pancreaze 10,500 Unit FEEDTUBE PRN PRN For Clogged Feeding Tube Dextrose 50 ml 07/17/19 03:17 07/17/19 05:30 D50w (25gm) Syringe IV 50 ml PRN PRN Administration Hypoglycemia Enoxaparin Sodium 40 mg 07/20/19 10:00 Lovenox SUB-Q QDAY@1000 KASIE Famotidine 20 mg 07/20/19 10:00 07/20/19 09:16 Pepcid PO 20 mg BID KASIE Administration Fentanyl 50 mcg 07/17/19 03:18 07/17/19 04:53 Sublimaze IV 50 mcg Q10MIN PRN Administration ANALGESIA Hydromorphone HCl 0.25 mg 07/16/19 05:36 07/19/19 23:20 Dilaudid IV 0.25 mg Q3H PRN Administration Pain, Moderate (4-6) Hydrophilic Ointment 1 applic 07/17/19 03:18 Vaseline Lip Therapy TP Q2HR PRN Dry Lips Vasopressin 20 unit/ Sodium 101 mls @ 9.09 mls/hr 07/16/19 20:00 07/20/19 10:56 Chloride IV Infused TITR KASIE Titration Protocol 0.03 UNITS/MIN Norepinephrine 8 mg/ Sodium 250 mls @ 3.75 mls/hr 07/16/19 21:00 07/20/19 07:00 Chloride IV 4 mcg/min TITR KASIE 7.5 mls/hr Titration Protocol 2 MCG/MIN Midazolam HCl 100 mg/ Sodium 100 mls @ 2 mls/hr 07/17/19 04:00 07/19/19 03:06 Chloride IV 0 mg/hr TITR KASIE 0 mls/hr Titration Protocol 2 MG/HR Fentanyl Citrate 2,000 mcg in 100 mls @ 3.4 mls/hr 07/17/19 04:00 07/20/19 08:16 Fentanyl Drip Premix IV 2 mcg/kg/hr TITR KASIE 6.8 mls/hr Administration Protocol 1 MCG/KG/HR Vancomycin HCl 1 gm in 250 mls @ 167.007 mls/hr 07/17/19 10:00 07/20/19 09:15 Vancomycin/Ns 1 Gm/250 Ml IV 167.007 mls/hr Q24HR KASIE Administration Phenylephrine HCl 100 mg/ 100 mls @ 3 mls/hr 07/17/19 09:30 07/18/19 15:50 Sodium Chloride IV 0 mcg/min TITR KASIE 0 mls/hr Titration Protocol 50 MCG/MIN Meropenem 1,000 mg/ Sodium 100 mls @ 100 mls/hr 07/17/19 14:00 07/20/19 06:00 Chloride IV 100 mls/hr Q8HR KASIE Administration Protocol Dextrose/Sodium Chloride 1,000 mls @ 75 mls/hr 07/19/19 11:00 07/19/19 23:27 D5/0.45ns IV 75 mls/hr DIRECT KASIE Administration Magnesium Sulfate 4 gm in 100 mls @ 25 mls/hr 07/20/19 08:00 07/20/19 08:11 Magnesium Sulfate 4gm/100ml IV 07/20/19 11:59 25 mls/hr ONCE ONE Administration Midazolam HCl 2 mg 07/17/19 03:18 07/17/19 04:53 Versed IV 2 mg Q10MIN PRN Administration Sedation Multi-Ingred Cream/Lotion/Oil/Oint 1 applic 07/17/19 03:18 Artificial Tears Ophth Oint OU Q4HR PRN Dry Eye(s) Nicotine 14 mg 07/16/19 10:00 07/20/19 09:15 Habitrol TD 14 mg QDAY KASIE Administration Ondansetron HCl 4 mg 07/16/19 05:36 07/16/19 21:16 Zofran IV 4 mg Q8H PRN Administration Nausea And Vomiting Oxycodone/Acetaminophen 1 tab 07/16/19 05:36 07/16/19 12:33 Percocet 5/325 PO 1 tab Q6H PRN Administration Pain, Moderate (4-6) Simple Syrup 15 ml 07/18/19 14:34 Simple Syrup FEEDTUBE PRN PRN Hypoglycemia Simple Syrup 30 ml 07/18/19 14:34 Simple Syrup FEEDTUBE PRN PRN Hypoglycemia Sodium Bicarbonate 325 mg 07/18/19 14:34 Sodium Bicarbonate FEEDTUBE PRN PRN For Clogged Feeding Tube Sodium Chloride 10 ml 07/16/19 10:00 07/19/19 23:36 Sodium Chloride Flush Syringe 10 Ml IV 10 ml BID KASIE Administration Sodium Chloride 10 ml 07/16/19 05:36 Sodium Chloride Flush Syringe 10 Ml IV PRN PRN LINE FLUSH
[2019-07-20] MEDS: SODIUM CHLORIDE FLUSH SYRINGE 10 ML IV SCH ×2 (11:48→23:26)
[2019-07-20] MEDS: D5W 1,000 ML IV SCH ×2 (11:48→23:27)
[2019-07-20] MEDS: LOVENOX SUB-Q SCH (11:48)
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
--- NOTE | 2019-07-20 12:41 | Progress Note ---
Assessment and Plan Assessment and Plan Imp: 1. Acute pyelonephritis with severe Escherichia coli sepsis/septic shock 2. ARDS 3. Acute respiratory failure, hypoxia 4. CRISTIAN 5. Lactic acidosis 6. Cellulitis R foot/toe 7. Thrombocytopenia Rec: 1. ABX per ID; f/u E.coli sens. and modify regimen prn 2. ARDSnet protocol -> drop TV to 400mL, increase RR to 26; leave PEEP at 18 and decrease FiO2 to keep sats 88% or >; repeat ABG after making these changes in 1 hour. Increase TV to 450 mL given high PaCO2 area did wean FiO2 to maintain oxygen saturation 90%. 3. Wean vasopressor as tolerated keep MAP > 65 4. Versed/Fentanyl; soft restraints needed to prevent self-extubation 5. Surgery following; await DOCK OPERATOR eval. 6. DVT and GI PPx; 7. Monitor platelets closely Family present and updated Prognosis Guarded Total critical care time 31 minute Subjective Date of service: 07/20/19 Principal diagnosis: Acute respiratory failure Interval history: Remains sedated and intubated on mechanical ventilator. Currently on FiO2 of 80% Objective Vital Signs - 12hr 07/20/19 07/20/19 07/20/19 00:45 00:46 01:00 Temperature Pulse Rate 95 H 96 H 85 Pulse Rate [ From Monitor] Respiratory 11 L 13 Rate Blood Pressure 107/59 107/59 101/55 O2 Sat by Pulse 95 96 96 Oximetry 07/20/19 07/20/19 07/20/19 01:15 01:30 01:45 Temperature Pulse Rate 93 H 96 H 98 H Pulse Rate [ From Monitor] Respiratory 13 14 13 Rate Blood Pressure 106/59 112/48 107/58 O2 Sat by Pulse 96 97 96 Oximetry 07/20/19 07/20/19 07/20/19 02:00 02:15 02:30 Temperature Pulse Rate 96 H 95 H 97 H Pulse Rate [ From Monitor] Respiratory 11 L 11 L 13 Rate Blood Pressure 107/58 103/60 107/58 O2 Sat by Pulse 96 97 95 Oximetry 07/20/19 07/20/19 07/20/19 02:45 03:00 03:15 Temperature Pulse Rate 96 H 95 H 103 H Pulse Rate [ From Monitor] Respiratory 15 12 10 L Rate Blood Pressure 107/61 114/61 116/66 O2 Sat by Pulse 95 96 95 Oximetry 07/20/19 07/20/19 07/20/19 03:30 03:45 03:50 Temperature 98.8 F Pulse Rate 95 H 95 H Pulse Rate [ From Monitor] Respiratory 12 13 Rate Blood Pressure 105/59 108/59 O2 Sat by Pulse 96 95 Oximetry 07/20/19 07/20/19 07/20/19 04:00 04:15 04:30 Temperature Pulse Rate 97 H 101 H 96 H Pulse Rate [ From Monitor] Respiratory 12 13 12 Rate Blood Pressure 106/60 111/66 105/57 O2 Sat by Pulse 95 96 95 Oximetry 07/20/19 07/20/19 07/20/19 04:45 05:00 05:15 Temperature Pulse Rate 95 H 93 H 96 H Pulse Rate [ From Monitor] Respiratory 11 L 10 L 12 Rate Blood Pressure 110/64 103/62 105/62 O2 Sat by Pulse 96 96 96 Oximetry 07/20/19 07/20/19 07/20/19 05:29 05:30 05:45 Temperature Pulse Rate 93 H 94 H 96 H Pulse Rate [ From Monitor] Respiratory 10 L 11 L Rate Blood Pressure 105/60 105/60 108/62 O2 Sat by Pulse 95 95 96 Oximetry 07/20/19 07/20/19 07/20/19 06:00 06:15 06:30 Temperature Pulse Rate 96 H 95 H 97 H Pulse Rate [ From Monitor] Respiratory 11 L 12 14 Rate Blood Pressure 109/62 109/63 109/65 O2 Sat by Pulse 96 96 94 Oximetry 07/20/19 07/20/19 07/20/19 06:45 07:00 07:15 Temperature Pulse Rate 97 H 97 H 84 Pulse Rate [ From Monitor] Respiratory 12 9 L 18 Rate Blood Pressure 112/62 114/63 102/60 O2 Sat by Pulse 95 95 95 Oximetry 07/20/19 07/20/19 07/20/19 07:30 07:43 07:45 Temperature Pulse Rate 97 H 86 84 Pulse Rate [ From Monitor] Respiratory 10 L 14 Rate Blood Pressure 107/60 101/61 101/61 O2 Sat by Pulse 95 95 96 Oximetry 07/20/19 07/20/19 07/20/19 08:00 08:15 08:30 Temperature 97.2 F L Pulse Rate 84 83 84 Pulse Rate [ 82 From Monitor] Respiratory 10 L 13 17 Rate Blood Pressure 98/55 96/59 102/62 O2 Sat by Pulse 95 95 95 Oximetry 07/20/19 07/20/19 07/20/19 08:45 09:00 09:15 Temperature Pulse Rate 84 83 85 Pulse Rate [ From Monitor] Respiratory 13 21 11 L Rate Blood Pressure 100/59 102/60 100/64 O2 Sat by Pulse 95 95 96 Oximetry 07/20/19 07/20/19 07/20/19 09:30 09:45 10:01 Temperature Pulse Rate 81 80 88 Pulse Rate [ From Monitor] Respiratory 18 16 17 Rate Blood Pressure 99/56 97/60 53/32 O2 Sat by Pulse 96 96 88 Oximetry 07/20/19 07/20/19 07/20/19 10:15 10:30 10:45 Temperature Pulse Rate 97 H 93 H 95 H Pulse Rate [ From Monitor] Respiratory 16 17 15 Rate Blood Pressure 111/61 107/57 104/58 O2 Sat by Pulse 94 94 93 Oximetry 07/20/19 07/20/19 07/20/19 10:56 11:00 11:15 Temperature Pulse Rate 91 H 91 H 93 H Pulse Rate [ From Monitor] Respiratory 16 11 L Rate Blood Pressure 104/58 107/51 107/54 O2 Sat by Pulse 91 90 91 Oximetry Constitutional: other (sedated, critically ill on ventilator. Opens eyes to tactile stimule) Eyes: non-icteric ENT: oropharynx moist Neck: supple Effort: other (tachypneic 2/2 vent) Ascultation: Bilateral: other (coarse equal BS bilaterally) Cardiovascular: regular rate and rhythm (no mrg) Gastrointestinal: normoactive bowel sounds, soft, non-tender, non-distended Integumentary: normal Extremities: no cyanosis, no edema, pink and warm Neurologic: other (sedated opens eyes to tactile stimuli) Psychiatric: other (unable to obtain) CBC and BMP: 07/20/19 07:50 07/20/19 07:50 ABG, PT/INR, D-dimer: ABG POC ABG pH 7.239 (7.35-7.45) L 07/18/19 05:51 ABG pH 7.316 pH Units (7.350-7.450) L 07/20/19 04:20 POC ABG pCO2 56.9 (35-45) H 07/18/19 05:51 ABG pCO2 55.9 mm Hg 07/20/19 04:20 POC ABG pO2 88 (80-105) 07/18/19 05:51 ABG pO2 87.4 mm Hg (80.0-90.0) 07/20/19 04:20 POC ABG HCO3 24.3 (22-26 mml/L) 07/18/19 05:51 POC ABG Total CO2 26 (23-27mmol/L) 07/18/19 05:51 POC ABG O2 Sat 95 07/18/19 05:51 ABG O2 Saturation 95.8 % (95.0-99.0) 07/20/19 04:20 PT/INR, D-dimer PT 16.3 Sec. (12.2-14.9) H 07/16/19 05:47 INR 1.35 (0.87-1.13) H 07/16/19 05:47 Abnormal lab findings: Abnormal Labs 07/16/19 07/16/19 07/16/19 02:01 02:01 02:01 WBC 11.7 H RBC Plt Count 101 L Seg Neuts % (Manual) 92.0 H Lymphocytes % (Manual) 5.0 L Monocytes % (Manual) Eosinophils % (Manual) Seg Neutrophils # Man 10.8 H Lymphocytes # (Manual) 0.6 L Monocytes # (Manual) Eosinophils # (Manual) PT 15.2 H INR 1.23 H POC ABG pH ABG pH POC ABG pCO2 POC ABG pO2 ABG pO2 ABG HCO3 ABG O2 Saturation ABG Base Excess ABG Hemoglobin Oxyhemoglobin Sodium Potassium Chloride Carbon Dioxide 18 L BUN 46 H Creatinine 2.2 H Glucose 116 H POC Glucose Lactic Acid Calcium Magnesium Total Bilirubin AST 63 H ALT 125 H Total Protein 6.2 L Albumin 2.8 L Lipase Urine WBC (Auto) U Epithel Cells (Auto) Urine Creatinine 07/16/19 07/16/19 07/16/19 02:16 02:43 04:07 WBC RBC Plt Count Seg Neuts % (Manual) Lymphocytes % (Manual) Monocytes % (Manual) Eosinophils % (Manual) Seg Neutrophils # Man Lymphocytes # (Manual) Monocytes # (Manual) Eosinophils # (Manual) PT INR POC ABG pH ABG pH POC ABG pCO2 POC ABG pO2 ABG pO2 ABG HCO3 ABG O2 Saturation ABG Base Excess ABG Hemoglobin Oxyhemoglobin Sodium Potassium Chloride Carbon Dioxide BUN Creatinine Glucose POC Glucose Lactic Acid 2.10 H* 2.30 H* Calcium Magnesium Total Bilirubin AST ALT Total Protein Albumin Lipase 6 L Urine WBC (Auto) U Epithel Cells (Auto) Urine Creatinine 07/16/19 07/16/19 07/16/19 05:47 05:59 14:30 WBC RBC Plt Count Seg Neuts % (Manual) Lymphocytes % (Manual) Monocytes % (Manual) Eosinophils % (Manual) Seg Neutrophils # Man Lymphocytes # (Manual) Monocytes # (Manual) Eosinophils # (Manual) PT 16.3 H INR 1.35 H POC ABG pH ABG pH POC ABG pCO2 POC ABG pO2 ABG pO2 ABG HCO3 ABG O2 Saturation ABG Base Excess ABG Hemoglobin Oxyhemoglobin Sodium Potassium Chloride Carbon Dioxide BUN Creatinine Glucose POC Glucose Lactic Acid Calcium Magnesium Total Bilirubin AST ALT Total Protein Albumin Lipase Urine WBC (Auto) > 182.0 H U Epithel Cells (Auto) 21.0 H Urine Creatinine 76.6 H 07/16/19 07/17/19 07/17/19 23:27 00:03 00:03 WBC RBC Plt Count Seg Neuts % (Manual) Lymphocytes % (Manual) Monocytes % (Manual) Eosinophils % (Manual) Seg Neutrophils # Man Lymphocytes # (Manual) Monocytes # (Manual) Eosinophils # (Manual) PT INR POC ABG pH 7.093 L ABG pH POC ABG pCO2 32.8 L POC ABG pO2 66 L ABG pO2 ABG HCO3 ABG O2 Saturation ABG Base Excess ABG Hemoglobin Oxyhemoglobin Sodium 148 H D Potassium Chloride 120.5 H Carbon Dioxide 14 L BUN 35 H Creatinine 1.5 H Glucose 42 L POC Glucose Lactic Acid 2.90 H* Calcium 5.7 L* D Magnesium Total Bilirubin AST ALT Total Protein Albumin Lipase Urine WBC (Auto) U Epithel Cells (Auto) Urine Creatinine 07/17/19 07/17/19 07/17/19 03:01 03:29 03:40 WBC 13.2 H RBC Plt Count 116 L Seg Neuts % (Manual) Lymphocytes % (Manual) 9.0 L Monocytes % (Manual) Eosinophils % (Manual) 24.0 H Seg Neutrophils # Man 8.6 H Lymphocytes # (Manual) Monocytes # (Manual) Eosinophils # (Manual) 3.2 H PT INR POC ABG pH 6.981 L ABG pH POC ABG pCO2 55.6 H POC ABG pO2 ABG pO2 ABG HCO3 ABG O2 Saturation ABG Base Excess ABG Hemoglobin Oxyhemoglobin Sodium Potassium Chloride Carbon Dioxide BUN Creatinine Glucose POC Glucose 64 L Lactic Acid Calcium Magnesium Total Bilirubin AST ALT Total Protein Albumin Lipase Urine WBC (Auto) U Epithel Cells (Auto) Urine Creatinine 07/17/19 07/17/19 07/17/19 03:40 03:40 04:08 WBC RBC Plt Count Seg Neuts % (Manual) Lymphocytes % (Manual) Monocytes % (Manual) Eosinophils % (Manual) Seg Neutrophils # Man Lymphocytes # (Manual) Monocytes # (Manual) Eosinophils # (Manual) PT INR POC ABG pH 7.056 L ABG pH POC ABG pCO2 POC ABG pO2 63 L ABG pO2 ABG HCO3 ABG O2 Saturation ABG Base Excess ABG Hemoglobin Oxyhemoglobin Sodium 147 H Potassium Chloride 120.2 H Carbon Dioxide 14 L BUN 36 H Creatinine 1.6 H Glucose POC Glucose Lactic Acid 3.20 H* Calcium 6.0 L Magnesium Total Bilirubin AST ALT Total Protein Albumin Lipase Urine WBC (Auto) U Epithel Cells (Auto) Urine Creatinine 07/17/19 07/17/19 07/17/19 05:33 05:45 06:51 WBC RBC Plt Count Seg Neuts % (Manual) Lymphocytes % (Manual) Monocytes % (Manual) Eosinophils % (Manual) Seg Neutrophils # Man Lymphocytes # (Manual) Monocytes # (Manual) Eosinophils # (Manual) PT INR POC ABG pH 7.061 L ABG pH POC ABG pCO2 49.0 H POC ABG pO2 ABG pO2 ABG HCO3 ABG O2 Saturation ABG Base Excess ABG Hemoglobin Oxyhemoglobin Sodium Potassium Chloride Carbon Dioxide BUN Creatinine Glucose POC Glucose 64 L 239 H Lactic Acid Calcium Magnesium Total Bilirubin AST ALT Total Protein Albumin Lipase Urine WBC (Auto) U Epithel Cells (Auto) Urine Creatinine 07/17/19 07/17/19 07/17/19 10:57 12:56 18:11 WBC RBC Plt Count Seg Neuts % (Manual) Lymphocytes % (Manual) Monocytes % (Manual) Eosinophils % (Manual) Seg Neutrophils # Man Lymphocytes # (Manual) Monocytes # (Manual) Eosinophils # (Manual) PT INR POC ABG pH ABG pH 7.192 L* POC ABG pCO2 POC ABG pO2 ABG pO2 67.5 L ABG HCO3 16.3 L ABG O2 Saturation 92.6 L ABG Base Excess -11.4 L ABG Hemoglobin Oxyhemoglobin 91.1 L Sodium Potassium Chloride Carbon Dioxide BUN Creatinine Glucose POC Glucose 107 H 122 H Lactic Acid Calcium Magnesium Total Bilirubin AST ALT Total Protein Albumin Lipase Urine WBC (Auto) U Epithel Cells (Auto) Urine Creatinine 07/17/19 07/17/19 07/18/19 23:34 Unknown 04:00 WBC RBC Plt Count 85 L Seg Neuts % (Manual) 82.0 H Lymphocytes % (Manual) 2.0 L Monocytes % (Manual) 12.0 H Eosinophils % (Manual) Seg Neutrophils # Man Lymphocytes # (Manual) 0.2 L Monocytes # (Manual) 1.1 H Eosinophils # (Manual) PT INR POC ABG pH ABG pH 7.237 L POC ABG pCO2 POC ABG pO2 ABG pO2 142.4 H ABG HCO3 17.0 L ABG O2 Saturation ABG Base Excess -9.8 L ABG Hemoglobin Oxyhemoglobin Sodium Potassium Chloride Carbon Dioxide BUN Creatinine Glucose POC Glucose 136 H Lactic Acid Calcium Magnesium Total Bilirubin AST ALT Total Protein Albumin Lipase Urine WBC (Auto) U Epithel Cells (Auto) Urine Creatinine 07/18/19 07/18/19 07/18/19 04:00 05:31 05:51 WBC RBC Plt Count Seg Neuts % (Manual) Lymphocytes % (Manual) Monocytes % (Manual) Eosinophils % (Manual) Seg Neutrophils # Man Lymphocytes # (Manual) Monocytes # (Manual) Eosinophils # (Manual) PT INR POC ABG pH 7.239 L ABG pH POC ABG pCO2 56.9 H POC ABG pO2 ABG pO2 ABG HCO3 ABG O2 Saturation ABG Base Excess ABG Hemoglobin Oxyhemoglobin Sodium 151 H Potassium 3.2 L D Chloride 114.7 H Carbon Dioxide BUN 42 H Creatinine 2.1 H Glucose 130 H POC Glucose 135 H Lactic Acid Calcium 6.0 L Magnesium Total Bilirubin 2.10 H AST 59 H ALT 62 H Total Protein 4.8 L D Albumin 2.0 L Lipase Urine WBC (Auto) U Epithel Cells (Auto) Urine Creatinine 07/18/19 07/18/19 07/18/19 12:05 18:30 23:40 WBC RBC Plt Count Seg Neuts % (Manual) Lymphocytes % (Manual) Monocytes % (Manual) Eosinophils % (Manual) Seg Neutrophils # Man Lymphocytes # (Manual) Monocytes # (Manual) Eosinophils # (Manual) PT INR POC ABG pH ABG pH POC ABG pCO2 POC ABG pO2 ABG pO2 ABG HCO3 ABG O2 Saturation ABG Base Excess ABG Hemoglobin Oxyhemoglobin Sodium Potassium Chloride Carbon Dioxide BUN Creatinine Glucose POC Glucose 126 H 131 H 163 H Lactic Acid Calcium Magnesium Total Bilirubin AST ALT Total Protein Albumin Lipase Urine WBC (Auto) U Epithel Cells (Auto) Urine Creatinine 07/19/19 07/19/19 07/19/19 03:35 04:57 08:15 WBC 11.1 H RBC 3.64 L Plt Count 71 L Seg Neuts % (Manual) Lymphocytes % (Manual) Monocytes % (Manual) Eosinophils % (Manual) Seg Neutrophils # Man Lymphocytes # (Manual) Monocytes # (Manual) Eosinophils # (Manual) PT INR POC ABG pH ABG pH 7.296 L POC ABG pCO2 POC ABG pO2 ABG pO2 78.7 L ABG HCO3 26.4 H ABG O2 Saturation ABG Base Excess ABG Hemoglobin 11.1 L Oxyhemoglobin 93.3 L Sodium Potassium Chloride Carbon Dioxide BUN Creatinine Glucose POC Glucose 170 H Lactic Acid Calcium Magnesium Total Bilirubin AST ALT Total Protein Albumin Lipase Urine WBC (Auto) U Epithel Cells (Auto) Urine Creatinine 07/19/19 07/19/19 07/19/19 08:15 12:34 18:32 WBC RBC Plt Count Seg Neuts % (Manual) Lymphocytes % (Manual) Monocytes % (Manual) Eosinophils % (Manual) Seg Neutrophils # Man Lymphocytes # (Manual) Monocytes # (Manual) Eosinophils # (Manual) PT INR POC ABG pH ABG pH POC ABG pCO2 POC ABG pO2 ABG pO2 ABG HCO3 ABG O2 Saturation ABG Base Excess ABG Hemoglobin Oxyhemoglobin Sodium 146 H Potassium 2.9 L* Chloride 107.9 H Carbon Dioxide BUN 35 H Creatinine 1.5 H Glucose 156 H POC Glucose 160 H 138 H Lactic Acid Calcium 6.6 L Magnesium Total Bilirubin AST ALT Total Protein Albumin Lipase Urine WBC (Auto) U Epithel Cells (Auto) Urine Creatinine 07/19/19 07/19/19 07/20/19 23:41 Unknown 04:20 WBC RBC Plt Count Seg Neuts % (Manual) Lymphocytes % (Manual) Monocytes % (Manual) Eosinophils % (Manual) Seg Neutrophils # Man Lymphocytes # (Manual) Monocytes # (Manual) Eosinophils # (Manual) PT INR POC ABG pH ABG pH 7.316 L POC ABG pCO2 POC ABG pO2 ABG pO2 ABG HCO3 27.9 H ABG O2 Saturation ABG Base Excess ABG Hemoglobin Oxyhemoglobin 94.0 L Sodium 149 H Potassium 3.2 L Chloride 112.3 H Carbon Dioxide BUN 34 H Creatinine Glucose 162 H POC Glucose 145 H Lactic Acid Calcium 7.0 L Magnesium 1.50 L Total Bilirubin AST ALT Total Protein Albumin Lipase Urine WBC (Auto) U Epithel Cells (Auto) Urine Creatinine 07/20/19 07/20/19 07/20/19 05:25 07:50 07:50 WBC 12.6 H RBC 3.51 L Plt Count 56 L Seg Neuts % (Manual) 89.0 H Lymphocytes % (Manual) 5.0 L Monocytes % (Manual) Eosinophils % (Manual) Seg Neutrophils # Man 11.2 H Lymphocytes # (Manual) 0.6 L Monocytes # (Manual) Eosinophils # (Manual) PT INR POC ABG pH ABG pH POC ABG pCO2 POC ABG pO2 ABG pO2 ABG HCO3 ABG O2 Saturation ABG Base Excess ABG Hemoglobin Oxyhemoglobin Sodium 151 H Potassium 3.4 L Chloride 114.7 H Carbon Dioxide 31 H BUN 30 H Creatinine Glucose 148 H POC Glucose 141 H Lactic Acid Calcium 7.3 L Magnesium Total Bilirubin AST ALT Total Protein Albumin Lipase Urine WBC (Auto) U Epithel Cells (Auto) Urine Creatinine Chest x-ray: image reviewed (changes of ARDS with possible minimal improvement)
[2019-07-20] MEDS: LEVOPHED 8 MG in NACL 0.9% 250ML 242 ML IV SCH (15:34)
[2019-07-20] MEDS: ROCEPHIN/NS 2 GM/100 ML 2 GM/100 ML BAG IV SCH (15:35)
[2019-07-20] MEDS: VERSED IV PRN ×2 (19:10→23:32)
--- NOTE | 2019-07-20 21:32 | Ultrasound Report ---
ULTRASOUND ABDOMEN, LIMITED (RIGHT UPPER QUADRANT) INDICATION / CLINICAL INFORMATION: Elevated LFTs, sepsis. COMPARISON: CT dated 07/16/19 FINDINGS: PANCREAS: Visualized portion shows no significant abnormality. LIVER: No significant abnormality. GALLBLADDER: No gallstones. Gallbladder wall is thickened and edematous measuring 5 mm. BILE DUCTS: No significant abnormality. Common bile duct measures 6 mm. FREE FLUID: No free fluid in abdomen. Small bilateral pleural effusions. ADDITIONAL FINDINGS: None. IMPRESSION: 1. No gallstones, but the gallbladder wall is thickened and edematous. 2. Small bilateral pleural effusions. Signer Name: Alexandre Diaz MD Signed: 07/20/2019 9:28 PM Workstation Name: [id number]
[2019-07-21] MEDS: DILAUDID IV PRN (01:07)
[2019-07-21] MEDS: FREE WATER PO SCH ×6 (01:34→20:00)
[2019-07-21] MEDS: MIDAZOLAM 100 MG in NACL 0.9% 80 ML IV SCH (01:46)
--- NOTE | 2019-07-21 03:14 | XRay Report ---
CHEST 1 VIEW 2:31 AM INDICATION / CLINICAL INFORMATION: Follow-up respiratory failure. COMPARISON: Yesterday. FINDINGS: SUPPORT DEVICES: The positions of the endotracheal tube, feeding tube and right jugular CVL have not changed. HEART / MEDIASTINUM: Unchanged. LUNGS / PLEURA: Moderately severe diffuse bilateral parenchymal disease has not changed significantly . No pneumothorax. ADDITIONAL FINDINGS: No significant additional findings. IMPRESSION: No significant interval change since yesterday. Signer Name: Parag Navarrete MD Signed: 07/21/2019 3:10 AM Workstation Name: [id number]
[2019-07-21 05:43] LABS: ABG HCO3 28.9 mmol/L (20.0-26.0); ABG Methemoglobin 0.5 % (0.0-1.5); ABG Oxygen Saturation 93.5 % (95.0-99.0); ABG PCO2 50.5 mm Hg; ABG PH 7.376 pH Units (7.350-7.450); ABG PO2 61.9 mm Hg (80.0-90.0)
[2019-07-21 05:47] LABS: Hematocrit 33.2 % (30.3-42.9); Hemoglobin 11.3 gm/dl (10.1-14.3); Mean Corpuscular HGB Conc 34 % (30-34); Mean Corpuscular Volume 89 fl (79-97); Red Blood Count 3.73 M/mm3 (3.65-5.03); Red Cell Distribution Width 14.5 % (13.2-15.2)
[2019-07-21 05:49] LABS: Alanine Aminotransferase 27 units/L (7-56); Albumin 1.5 g/dL (3.9-5); BUN/Creatinine Ratio 30; Blood Urea Nitrogen 21 mg/dL (7-17); Calcium 7.6 mg/dL (8.4-10.2); Hemolysis Index 3; Platelet Count 56 K/mm3 (140-440)
[2019-07-21] MEDS ORDERED: KPHOS 30 MMOL in NACL 0.9% 500 ML 500 ML IV ONE (08:00)
[2019-07-21] MEDS: fentaNYL DRIP Premix 2,000 MCG/100 ML BAG IV SCH ×2 (08:11→20:18)
[2019-07-21] MEDS: SODIUM CHLORIDE FLUSH SYRINGE 10 ML IV SCH (09:09)
[2019-07-21] MEDS: HABITROL TD SCH (09:09)
[2019-07-21] MEDS: LOVENOX SUB-Q SCH (09:09)
[2019-07-21] MEDS: PEPCID PO SCH ×2 (09:09→21:45)
[2019-07-21] MEDS: ROCEPHIN/NS 2 GM/100 ML 2 GM/100 ML BAG IV SCH (09:10)
[2019-07-21] MEDS: VANCOMYCIN/NS 1 GM/250 ML 1 GM/250 ML BAG IV SCH ×2 (09:10→21:45)
[2019-07-21] MEDS: LEVOPHED 8 MG in NACL 0.9% 250ML 242 ML IV SCH (10:59)
--- NOTE | 2019-07-21 12:16 | Progress Note ---
Assessment and Plan Assessment and Plan Imp: 1. Acute pyelonephritis with severe Escherichia coli sepsis/septic shock 2. ARDS 3. Acute respiratory failure, hypoxia 4. CRISTIAN 5. Lactic acidosis 6. Cellulitis R foot/toe 7. Thrombocytopenia 8. Hypophosphatemia Rec: 1. ABX per ID; f/u E.coli sens. and modify regimen prn 2. ARDSnet protocol -> drop TV to 400mL, increase RR to 26; leave PEEP at 18 and decrease FiO2 to keep sats 88% or >; repeat ABG after making these changes in 1 hour. Increase TV to 450 mL given high PaCO2 area did wean FiO2 to maintain oxygen saturation 90%. 3. Wean vasopressor as tolerated keep MAP > 65 4. Versed/Fentanyl; soft restraints needed to prevent self-extubation 5. Surgery following; await [employer] eval. 6. DVT and GI PPx; 7. Monitor platelets closely Prognosis Guarded Total critical care time 31 minute Subjective Date of service: 07/21/19 Principal diagnosis: Acute respiratory failure Interval history: Remains sedated and intubated on mechanical ventilator. Currently on FiO2 of 55%. No change in condition Objective Vital Signs - 12hr 07/21/19 07/21/19 07/21/19 00:30 00:45 01:00 Temperature Pulse Rate 88 87 87 Pulse Rate [ Right Dorsalis Pedis] Respiratory 26 H 26 H 26 H Rate Blood Pressure 99/53 101/54 101/55 O2 Sat by Pulse 95 95 96 Oximetry 07/21/19 07/21/19 07/21/19 01:07 01:15 01:30 Temperature Pulse Rate 99 H 105 H Pulse Rate [ Right Dorsalis Pedis] Respiratory 26 H 26 H 26 H Rate Blood Pressure 116/52 122/66 O2 Sat by Pulse 93 93 Oximetry 07/21/19 07/21/19 07/21/19 01:37 01:45 02:00 Temperature Pulse Rate 98 H 89 Pulse Rate [ Right Dorsalis Pedis] Respiratory 18 25 H 26 H Rate Blood Pressure 116/59 98/45 O2 Sat by Pulse 89 93 Oximetry 07/21/19 07/21/19 07/21/19 02:15 02:30 02:45 Temperature Pulse Rate 86 88 83 Pulse Rate [ Right Dorsalis Pedis] Respiratory 26 H 26 H 26 H Rate Blood Pressure 92/48 97/50 92/45 O2 Sat by Pulse 95 92 94 Oximetry 07/21/19 07/21/19 07/21/19 02:47 03:00 03:15 Temperature 99.2 F Pulse Rate 78 77 Pulse Rate [ 80 Right Dorsalis Pedis] Respiratory 26 H 26 H Rate Blood Pressure 92/45 94/50 O2 Sat by Pulse 95 96 Oximetry 07/21/19 07/21/19 07/21/19 03:30 03:45 04:00 Temperature Pulse Rate 79 77 76 Pulse Rate [ 76 Right Dorsalis Pedis] Respiratory 26 H 26 H 26 H Rate Blood Pressure 91/51 92/52 91/47 O2 Sat by Pulse 96 97 97 Oximetry 07/21/19 07/21/19 07/21/19 04:05 04:15 04:30 Temperature Pulse Rate 77 75 76 Pulse Rate [ Right Dorsalis Pedis] Respiratory 26 H 26 H Rate Blood Pressure 91/47 93/50 93/51 O2 Sat by Pulse 96 96 96 Oximetry 07/21/19 07/21/19 07/21/19 04:45 05:00 05:15 Temperature Pulse Rate 77 89 84 Pulse Rate [ Right Dorsalis Pedis] Respiratory 26 H 25 H 26 H Rate Blood Pressure 93/52 106/40 98/48 O2 Sat by Pulse 96 85 95 Oximetry 07/21/19 07/21/19 07/21/19 05:30 05:45 06:00 Temperature Pulse Rate 86 96 H 101 H Pulse Rate [ Right Dorsalis Pedis] Respiratory 26 H 26 H 26 H Rate Blood Pressure 101/52 101/52 117/60 O2 Sat by Pulse 94 90 85 Oximetry 07/21/19 07/21/19 07/21/19 06:15 06:30 06:45 Temperature Pulse Rate 93 H 87 84 Pulse Rate [ Right Dorsalis Pedis] Respiratory 26 H 26 H 26 H Rate Blood Pressure 107/52 104/53 101/52 O2 Sat by Pulse 92 92 92 Oximetry 07/21/19 07/21/19 07/21/19 07:00 07:15 07:30 Temperature Pulse Rate 85 83 84 Pulse Rate [ Right Dorsalis Pedis] Respiratory 26 H 26 H 26 H Rate Blood Pressure 99/48 97/49 96/47 O2 Sat by Pulse 91 91 91 Oximetry 07/21/19 07/21/19 07/21/19 07:45 07:49 08:00 Temperature 98.9 F Pulse Rate 81 98 H 83 Pulse Rate [ Right Dorsalis Pedis] Respiratory 25 H 26 H Rate Blood Pressure 95/49 95/49 104/49 O2 Sat by Pulse 92 97 92 Oximetry 07/21/19 07/21/19 07/21/19 08:15 08:30 08:45 Temperature Pulse Rate 83 83 86 Pulse Rate [ Right Dorsalis Pedis] Respiratory 23 23 12 Rate Blood Pressure 97/47 96/51 94/48 O2 Sat by Pulse 93 93 91 Oximetry 07/21/19 07/21/19 07/21/19 09:00 09:15 09:30 Temperature Pulse Rate 82 82 105 H Pulse Rate [ Right Dorsalis Pedis] Respiratory 26 H 25 H 26 H Rate Blood Pressure 97/48 96/47 113/59 O2 Sat by Pulse 92 91 98 Oximetry 07/21/19 07/21/19 07/21/19 09:45 10:00 10:15 Temperature Pulse Rate 90 89 87 Pulse Rate [ Right Dorsalis Pedis] Respiratory 26 H 26 H 26 H Rate Blood Pressure 101/47 101/48 95/47 O2 Sat by Pulse 90 90 90 Oximetry 07/21/19 07/21/19 07/21/19 10:30 10:45 11:00 Temperature Pulse Rate 88 87 84 Pulse Rate [ Right Dorsalis Pedis] Respiratory 26 H 26 H 26 H Rate Blood Pressure 95/47 97/48 94/47 O2 Sat by Pulse 90 89 91 Oximetry 07/21/19 07/21/19 11:15 12:00 Temperature Pulse Rate 85 84 Pulse Rate [ Right Dorsalis Pedis] Respiratory 26 H Rate Blood Pressure 94/48 97/52 O2 Sat by Pulse 91 92 Oximetry Constitutional: other (sedated, critically ill on ventilator. Opens eyes to tactile stimule) Eyes: non-icteric ENT: oropharynx moist Neck: supple Effort: other (tachypneic 2/2 vent) Ascultation: Bilateral: other (coarse equal BS bilaterally) Cardiovascular: regular rate and rhythm (no mrg) Gastrointestinal: normoactive bowel sounds, soft, non-tender, non-distended Integumentary: normal Extremities: no cyanosis, no edema, pink and warm Neurologic: other (sedated opens eyes to tactile stimuli) Psychiatric: other (unable to obtain) CBC and BMP: 07/21/19 05:00 07/21/19 05:00 ABG, PT/INR, D-dimer: ABG POC ABG pH 7.239 (7.35-7.45) L 07/18/19 05:51 ABG pH 7.376 pH Units (7.350-7.450) 07/21/19 Unknown POC ABG pCO2 56.9 (35-45) H 07/18/19 05:51 ABG pCO2 50.5 mm Hg 07/21/19 Unknown POC ABG pO2 88 (80-105) 07/18/19 05:51 ABG pO2 61.9 mm Hg (80.0-90.0) L 07/21/19 Unknown POC ABG HCO3 24.3 (22-26 mml/L) 07/18/19 05:51 POC ABG Total CO2 26 (23-27mmol/L) 07/18/19 05:51 POC ABG O2 Sat 95 07/18/19 05:51 ABG O2 Saturation 93.5 % (95.0-99.0) L 07/21/19 Unknown PT/INR, D-dimer PT 16.3 Sec. (12.2-14.9) H 07/16/19 05:47 INR 1.35 (0.87-1.13) H 07/16/19 05:47 Abnormal lab findings: Abnormal Labs 07/16/19 07/16/19 07/16/19 02:01 02:01 02:01 WBC 11.7 H RBC Plt Count 101 L Seg Neuts % (Manual) 92.0 H Lymphocytes % (Manual) 5.0 L Monocytes % (Manual) Eosinophils % (Manual) Seg Neutrophils # Man 10.8 H Lymphocytes # (Manual) 0.6 L Monocytes # (Manual) Eosinophils # (Manual) PT 15.2 H INR 1.23 H POC ABG pH ABG pH POC ABG pCO2 POC ABG pO2 ABG pO2 ABG HCO3 ABG O2 Saturation ABG Base Excess ABG Hemoglobin Oxyhemoglobin Sodium Potassium Chloride Carbon Dioxide 18 L BUN 46 H Creatinine 2.2 H Glucose 116 H POC Glucose Lactic Acid Calcium Phosphorus Magnesium Total Bilirubin AST 63 H ALT 125 H Alkaline Phosphatase Total Protein 6.2 L Albumin 2.8 L Lipase Urine WBC (Auto) U Epithel Cells (Auto) Urine Creatinine 07/16/19 07/16/19 07/16/19 02:16 02:43 04:07 WBC RBC Plt Count Seg Neuts % (Manual) Lymphocytes % (Manual) Monocytes % (Manual) Eosinophils % (Manual) Seg Neutrophils # Man Lymphocytes # (Manual) Monocytes # (Manual) Eosinophils # (Manual) PT INR POC ABG pH ABG pH POC ABG pCO2 POC ABG pO2 ABG pO2 ABG HCO3 ABG O2 Saturation ABG Base Excess ABG Hemoglobin Oxyhemoglobin Sodium Potassium Chloride Carbon Dioxide BUN Creatinine Glucose POC Glucose Lactic Acid 2.10 H* 2.30 H* Calcium Phosphorus Magnesium Total Bilirubin AST ALT Alkaline Phosphatase Total Protein Albumin Lipase 6 L Urine WBC (Auto) U Epithel Cells (Auto) Urine Creatinine 07/16/19 07/16/19 07/16/19 05:47 05:59 14:30 WBC RBC Plt Count Seg Neuts % (Manual) Lymphocytes % (Manual) Monocytes % (Manual) Eosinophils % (Manual) Seg Neutrophils # Man Lymphocytes # (Manual) Monocytes # (Manual) Eosinophils # (Manual) PT 16.3 H INR 1.35 H POC ABG pH ABG pH POC ABG pCO2 POC ABG pO2 ABG pO2 ABG HCO3 ABG O2 Saturation ABG Base Excess ABG Hemoglobin Oxyhemoglobin Sodium Potassium Chloride Carbon Dioxide BUN Creatinine Glucose POC Glucose Lactic Acid Calcium Phosphorus Magnesium Total Bilirubin AST ALT Alkaline Phosphatase Total Protein Albumin Lipase Urine WBC (Auto) > 182.0 H U Epithel Cells (Auto) 21.0 H Urine Creatinine 76.6 H 07/16/19 07/17/19 07/17/19 23:27 00:03 00:03 WBC RBC Plt Count Seg Neuts % (Manual) Lymphocytes % (Manual) Monocytes % (Manual) Eosinophils % (Manual) Seg Neutrophils # Man Lymphocytes # (Manual) Monocytes # (Manual) Eosinophils # (Manual) PT INR POC ABG pH 7.093 L ABG pH POC ABG pCO2 32.8 L POC ABG pO2 66 L ABG pO2 ABG HCO3 ABG O2 Saturation ABG Base Excess ABG Hemoglobin Oxyhemoglobin Sodium 148 H D Potassium Chloride 120.5 H Carbon Dioxide 14 L BUN 35 H Creatinine 1.5 H Glucose 42 L POC Glucose Lactic Acid 2.90 H* Calcium 5.7 L* D Phosphorus Magnesium Total Bilirubin AST ALT Alkaline Phosphatase Total Protein Albumin Lipase Urine WBC (Auto) U Epithel Cells (Auto) Urine Creatinine 0807/17/19 07/17/19 03:01 03:29 03:40 WBC 13.2 H RBC Plt Count 116 L Seg Neuts % (Manual) Lymphocytes % (Manual) 9.0 L Monocytes % (Manual) Eosinophils % (Manual) 24.0 H Seg Neutrophils # Man 8.6 H Lymphocytes # (Manual) Monocytes # (Manual) Eosinophils # (Manual) 3.2 H PT INR POC ABG pH 6.981 L ABG pH POC ABG pCO2 55.6 H POC ABG pO2 ABG pO2 ABG HCO3 ABG O2 Saturation ABG Base Excess ABG Hemoglobin Oxyhemoglobin Sodium Potassium Chloride Carbon Dioxide BUN Creatinine Glucose POC Glucose 64 L Lactic Acid Calcium Phosphorus Magnesium Total Bilirubin AST ALT Alkaline Phosphatase Total Protein Albumin Lipase Urine WBC (Auto) U Epithel Cells (Auto) Urine Creatinine 07/17/19 07/17/19 07/17/19 03:40 03:40 04:08 WBC RBC Plt Count Seg Neuts % (Manual) Lymphocytes % (Manual) Monocytes % (Manual) Eosinophils % (Manual) Seg Neutrophils # Man Lymphocytes # (Manual) Monocytes # (Manual) Eosinophils # (Manual) PT INR POC ABG pH 7.056 L ABG pH POC ABG pCO2 POC ABG pO2 63 L ABG pO2 ABG HCO3 ABG O2 Saturation ABG Base Excess ABG Hemoglobin Oxyhemoglobin Sodium 147 H Potassium Chloride 120.2 H Carbon Dioxide 14 L BUN 36 H Creatinine 1.6 H Glucose POC Glucose Lactic Acid 3.20 H* Calcium 6.0 L Phosphorus Magnesium Total Bilirubin AST ALT Alkaline Phosphatase Total Protein Albumin Lipase Urine WBC (Auto) U Epithel Cells (Auto) Urine Creatinine 07/17/19 07/17/19 07/17/19 05:33 05:45 06:51 WBC RBC Plt Count Seg Neuts % (Manual) Lymphocytes % (Manual) Monocytes % (Manual) Eosinophils % (Manual) Seg Neutrophils # Man Lymphocytes # (Manual) Monocytes # (Manual) Eosinophils # (Manual) PT INR POC ABG pH 7.061 L ABG pH POC ABG pCO2 49.0 H POC ABG pO2 ABG pO2 ABG HCO3 ABG O2 Saturation ABG Base Excess ABG Hemoglobin Oxyhemoglobin Sodium Potassium Chloride Carbon Dioxide BUN Creatinine Glucose POC Glucose 64 L 239 H Lactic Acid Calcium Phosphorus Magnesium Total Bilirubin AST ALT Alkaline Phosphatase Total Protein Albumin Lipase Urine WBC (Auto) U Epithel Cells (Auto) Urine Creatinine 07/17/19 07/17/19 07/17/19 10:57 12:56 18:11 WBC RBC Plt Count Seg Neuts % (Manual) Lymphocytes % (Manual) Monocytes % (Manual) Eosinophils % (Manual) Seg Neutrophils # Man Lymphocytes # (Manual) Monocytes # (Manual) Eosinophils # (Manual) PT INR POC ABG pH ABG pH 7.192 L* POC ABG pCO2 POC ABG pO2 ABG pO2 67.5 L ABG HCO3 16.3 L ABG O2 Saturation 92.6 L ABG Base Excess -11.4 L ABG Hemoglobin Oxyhemoglobin 91.1 L Sodium Potassium Chloride Carbon Dioxide BUN Creatinine Glucose POC Glucose 107 H 122 H Lactic Acid Calcium Phosphorus Magnesium Total Bilirubin AST ALT Alkaline Phosphatase Total Protein Albumin Lipase Urine WBC (Auto) U Epithel Cells (Auto) Urine Creatinine 07/17/19 07/17/19 07/18/19 23:34 Unknown 04:00 WBC RBC Plt Count 85 L Seg Neuts % (Manual) 82.0 H Lymphocytes % (Manual) 2.0 L Monocytes % (Manual) 12.0 H Eosinophils % (Manual) Seg Neutrophils # Man Lymphocytes # (Manual) 0.2 L Monocytes # (Manual) 1.1 H Eosinophils # (Manual) PT INR POC ABG pH ABG pH 7.237 L POC ABG pCO2 POC ABG pO2 ABG pO2 142.4 H ABG HCO3 17.0 L ABG O2 Saturation ABG Base Excess -9.8 L ABG Hemoglobin Oxyhemoglobin Sodium Potassium Chloride Carbon Dioxide BUN Creatinine Glucose POC Glucose 136 H Lactic Acid Calcium Phosphorus Magnesium Total Bilirubin AST ALT Alkaline Phosphatase Total Protein Albumin Lipase Urine WBC (Auto) U Epithel Cells (Auto) Urine Creatinine 07/18/19 07/18/19 07/18/19 04:00 05:31 05:51 WBC RBC Plt Count Seg Neuts % (Manual) Lymphocytes % (Manual) Monocytes % (Manual) Eosinophils % (Manual) Seg Neutrophils # Man Lymphocytes # (Manual) Monocytes # (Manual) Eosinophils # (Manual) PT INR POC ABG pH 7.239 L ABG pH POC ABG pCO2 56.9 H POC ABG pO2 ABG pO2 ABG HCO3 ABG O2 Saturation ABG Base Excess ABG Hemoglobin Oxyhemoglobin Sodium 151 H Potassium 3.2 L D Chloride 114.7 H Carbon Dioxide BUN 42 H Creatinine 2.1 H Glucose 130 H POC Glucose 135 H Lactic Acid Calcium 6.0 L Phosphorus Magnesium Total Bilirubin 2.10 H AST 59 H ALT 62 H Alkaline Phosphatase Total Protein 4.8 L D Albumin 2.0 L Lipase Urine WBC (Auto) U Epithel Cells (Auto) Urine Creatinine 07/18/19 07/18/19 07/18/19 12:05 18:30 23:40 WBC RBC Plt Count Seg Neuts % (Manual) Lymphocytes % (Manual) Monocytes % (Manual) Eosinophils % (Manual) Seg Neutrophils # Man Lymphocytes # (Manual) Monocytes # (Manual) Eosinophils # (Manual) PT INR POC ABG pH ABG pH POC ABG pCO2 POC ABG pO2 ABG pO2 ABG HCO3 ABG O2 Saturation ABG Base Excess ABG Hemoglobin Oxyhemoglobin Sodium Potassium Chloride Carbon Dioxide BUN Creatinine Glucose POC Glucose 126 H 131 H 163 H Lactic Acid Calcium Phosphorus Magnesium Total Bilirubin AST ALT Alkaline Phosphatase Total Protein Albumin Lipase Urine WBC (Auto) U Epithel Cells (Auto) Urine Creatinine 07/19/19 07/19/19 07/19/19 03:35 04:57 08:15 WBC 11.1 H RBC 3.64 L Plt Count 71 L Seg Neuts % (Manual) Lymphocytes % (Manual) Monocytes % (Manual) Eosinophils % (Manual) Seg Neutrophils # Man Lymphocytes # (Manual) Monocytes # (Manual) Eosinophils # (Manual) PT INR POC ABG pH ABG pH 7.296 L POC ABG pCO2 POC ABG pO2 ABG pO2 78.7 L ABG HCO3 26.4 H ABG O2 Saturation ABG Base Excess ABG Hemoglobin 11.1 L Oxyhemoglobin 93.3 L Sodium Potassium Chloride Carbon Dioxide BUN Creatinine Glucose POC Glucose 170 H Lactic Acid Calcium Phosphorus Magnesium Total Bilirubin AST ALT Alkaline Phosphatase Total Protein Albumin Lipase Urine WBC (Auto) U Epithel Cells (Auto) Urine Creatinine 07/19/19 07/19/19 07/19/19 08:15 12:34 18:32 WBC RBC Plt Count Seg Neuts % (Manual) Lymphocytes % (Manual) Monocytes % (Manual) Eosinophils % (Manual) Seg Neutrophils # Man Lymphocytes # (Manual) Monocytes # (Manual) Eosinophils # (Manual) PT INR POC ABG pH ABG pH POC ABG pCO2 POC ABG pO2 ABG pO2 ABG HCO3 ABG O2 Saturation ABG Base Excess ABG Hemoglobin Oxyhemoglobin Sodium 146 H Potassium 2.9 L* Chloride 107.9 H Carbon Dioxide BUN 35 H Creatinine 1.5 H Glucose 156 H POC Glucose 160 H 138 H Lactic Acid Calcium 6.6 L Phosphorus Magnesium Total Bilirubin AST ALT Alkaline Phosphatase Total Protein Albumin Lipase Urine WBC (Auto) U Epithel Cells (Auto) Urine Creatinine 07/19/19 07/19/19 07/20/19 23:41 Unknown 04:20 WBC RBC Plt Count Seg Neuts % (Manual) Lymphocytes % (Manual) Monocytes % (Manual) Eosinophils % (Manual) Seg Neutrophils # Man Lymphocytes # (Manual) Monocytes # (Manual) Eosinophils # (Manual) PT INR POC ABG pH ABG pH 7.316 L POC ABG pCO2 POC ABG pO2 ABG pO2 ABG HCO3 27.9 H ABG O2 Saturation ABG Base Excess ABG Hemoglobin Oxyhemoglobin 94.0 L Sodium 149 H Potassium 3.2 L Chloride 112.3 H Carbon Dioxide BUN 34 H Creatinine Glucose 162 H POC Glucose 145 H Lactic Acid Calcium 7.0 L Phosphorus Magnesium 1.50 L Total Bilirubin AST ALT Alkaline Phosphatase Total Protein Albumin Lipase Urine WBC (Auto) U Epithel Cells (Auto) Urine Creatinine 07/20/19 07/20/19 07/20/19 05:25 07:50 07:50 WBC 12.6 H RBC 3.51 L Plt Count 56 L Seg Neuts % (Manual) 89.0 H Lymphocytes % (Manual) 5.0 L Monocytes % (Manual) Eosinophils % (Manual) Seg Neutrophils # Man 11.2 H Lymphocytes # (Manual) 0.6 L Monocytes # (Manual) Eosinophils # (Manual) PT INR POC ABG pH ABG pH POC ABG pCO2 POC ABG pO2 ABG pO2 ABG HCO3 ABG O2 Saturation ABG Base Excess ABG Hemoglobin Oxyhemoglobin Sodium 151 H Potassium 3.4 L Chloride 114.7 H Carbon Dioxide 31 H BUN 30 H Creatinine Glucose 148 H POC Glucose 141 H Lactic Acid Calcium 7.3 L Phosphorus Magnesium Total Bilirubin AST ALT Alkaline Phosphatase Total Protein Albumin Lipase Urine WBC (Auto) U Epithel Cells (Auto) Urine Creatinine 07/20/19 07/20/19 07/20/19 15:47 17:25 23:57 WBC RBC Plt Count Seg Neuts % (Manual) Lymphocytes % (Manual) Monocytes % (Manual) Eosinophils % (Manual) Seg Neutrophils # Man Lymphocytes # (Manual) Monocytes # (Manual) Eosinophils # (Manual) PT INR POC ABG pH ABG pH POC ABG pCO2 POC ABG pO2 ABG pO2 ABG HCO3 ABG O2 Saturation ABG Base Excess ABG Hemoglobin Oxyhemoglobin Sodium Potassium Chloride Carbon Dioxide BUN Creatinine Glucose POC Glucose 160 H 165 H 122 H Lactic Acid Calcium Phosphorus Magnesium Total Bilirubin AST ALT Alkaline Phosphatase Total Protein Albumin Lipase Urine WBC (Auto) U Epithel Cells (Auto) Urine Creatinine 07/21/19 07/21/19 07/21/19 05:00 05:00 05:00 WBC 15.8 H RBC Plt Count 56 L Seg Neuts % (Manual) Lymphocytes % (Manual) Monocytes % (Manual) Eosinophils % (Manual) Seg Neutrophils # Man Lymphocytes # (Manual) Monocytes # (Manual) Eosinophils # (Manual) PT INR POC ABG pH ABG pH POC ABG pCO2 POC ABG pO2 ABG pO2 ABG HCO3 ABG O2 Saturation ABG Base Excess ABG Hemoglobin Oxyhemoglobin Sodium 147 H Potassium 3.5 L Chloride 111.4 H Carbon Dioxide BUN 21 H Creatinine Glucose 107 H POC Glucose Lactic Acid Calcium 7.6 L Phosphorus 1.60 L Magnesium Total Bilirubin 4.80 H AST 48 H ALT Alkaline Phosphatase 131 H Total Protein 4.3 L Albumin 1.5 L Lipase Urine WBC (Auto) U Epithel Cells (Auto) Urine Creatinine 07/21/19 07/21/19 07/21/19 05:34 12:12 Unknown WBC RBC Plt Count Seg Neuts % (Manual) Lymphocytes % (Manual) Monocytes % (Manual) Eosinophils % (Manual) Seg Neutrophils # Man Lymphocytes # (Manual) Monocytes # (Manual) Eosinophils # (Manual) PT INR POC ABG pH ABG pH POC ABG pCO2 POC ABG pO2 ABG pO2 61.9 L ABG HCO3 28.9 H ABG O2 Saturation 93.5 L ABG Base Excess ABG Hemoglobin 10.8 L Oxyhemoglobin 91.6 L Sodium Potassium Chloride Carbon Dioxide BUN Creatinine Glucose POC Glucose 119 H 108 H Lactic Acid Calcium Phosphorus Magnesium Total Bilirubin AST ALT Alkaline Phosphatase Total Protein Albumin Lipase Urine WBC (Auto) U Epithel Cells (Auto) Urine Creatinine Chest x-ray: image reviewed (changes of ARDS noted, no change compared to yesterday)
--- NOTE | 2019-07-21 13:54 | Progress Note ---
Assessment and Plan - Patient Problems (1) Cellulitis of right foot Current Visit: Yes Status: Resolved Plan to address problem: Pt in critical condition. This is not related to foot infection. Foot appears better today. No I&D needed at this time. However, I did try to drain whatever small collection was there by squeezing it out. There were only a few drops present. Wound was cleaned and dressing was placed. Will follow peripherally. Please call with questions. time=10min Subjective Date of service: 07/21/19 Patient Reports: Positive: other (staff reports that patient is improving) Objective Vital Signs - 12hr 07/21/19 07/21/19 07/21/19 02:00 02:15 02:30 Temperature Pulse Rate 89 86 88 Pulse Rate [ Right Dorsalis Pedis] Respiratory 26 H 26 H 26 H Rate Blood Pressure 98/45 92/48 97/50 O2 Sat by Pulse 93 95 92 Oximetry 07/21/19 07/21/19 07/21/19 02:45 02:47 03:00 Temperature 99.2 F Pulse Rate 83 78 Pulse Rate [ 80 Right Dorsalis Pedis] Respiratory 26 H 26 H Rate Blood Pressure 92/45 92/45 O2 Sat by Pulse 94 95 Oximetry 07/21/19 07/21/19 07/21/19 03:15 03:30 03:45 Temperature Pulse Rate 77 79 77 Pulse Rate [ Right Dorsalis Pedis] Respiratory 26 H 26 H 26 H Rate Blood Pressure 94/50 91/51 92/52 O2 Sat by Pulse 96 96 97 Oximetry 07/21/19 07/21/19 07/21/19 04:00 04:05 04:15 Temperature Pulse Rate 76 77 75 Pulse Rate [ 76 Right Dorsalis Pedis] Respiratory 26 H 26 H Rate Blood Pressure 91/47 91/47 93/50 O2 Sat by Pulse 97 96 96 Oximetry 07/21/19 07/21/19 07/21/19 04:30 04:45 05:00 Temperature Pulse Rate 76 77 89 Pulse Rate [ Right Dorsalis Pedis] Respiratory 26 H 26 H 25 H Rate Blood Pressure 93/51 93/52 106/40 O2 Sat by Pulse 96 96 85 Oximetry 07/21/19 07/21/19 07/21/19 05:15 05:30 05:45 Temperature Pulse Rate 84 86 96 H Pulse Rate [ Right Dorsalis Pedis] Respiratory 26 H 26 H 26 H Rate Blood Pressure 98/48 101/52 101/52 O2 Sat by Pulse 95 94 90 Oximetry 07/21/19 07/21/19 07/21/19 06:00 06:15 06:30 Temperature Pulse Rate 101 H 93 H 87 Pulse Rate [ Right Dorsalis Pedis] Respiratory 26 H 26 H 26 H Rate Blood Pressure 117/60 107/52 104/53 O2 Sat by Pulse 85 92 92 Oximetry 07/21/19 07/21/19 07/21/19 06:45 07:00 07:15 Temperature Pulse Rate 84 85 83 Pulse Rate [ Right Dorsalis Pedis] Respiratory 26 H 26 H 26 H Rate Blood Pressure 101/52 99/48 97/49 O2 Sat by Pulse 92 91 91 Oximetry 07/21/19 07/21/19 07/21/19 07:30 07:45 07:49 Temperature Pulse Rate 84 81 98 H Pulse Rate [ Right Dorsalis Pedis] Respiratory 26 H 25 H Rate Blood Pressure 96/47 95/49 95/49 O2 Sat by Pulse 91 92 97 Oximetry 07/21/19 07/21/19 07/21/19 08:00 08:15 08:30 Temperature 98.9 F Pulse Rate 83 83 83 Pulse Rate [ Right Dorsalis Pedis] Respiratory 26 H 23 23 Rate Blood Pressure 104/49 97/47 96/51 O2 Sat by Pulse 92 93 93 Oximetry 07/21/19 07/21/19 07/21/19 08:45 09:00 09:15 Temperature Pulse Rate 86 82 82 Pulse Rate [ Right Dorsalis Pedis] Respiratory 12 26 H 25 H Rate Blood Pressure 94/48 97/48 96/47 O2 Sat by Pulse 91 92 91 Oximetry 07/21/19 07/21/19 07/21/19 09:30 09:45 10:00 Temperature Pulse Rate 105 H 90 89 Pulse Rate [ Right Dorsalis Pedis] Respiratory 26 H 26 H 26 H Rate Blood Pressure 113/59 101/47 101/48 O2 Sat by Pulse 98 90 90 Oximetry 07/21/19 07/21/19 07/21/19 10:15 10:30 10:45 Temperature Pulse Rate 87 88 87 Pulse Rate [ Right Dorsalis Pedis] Respiratory 26 H 26 H 26 H Rate Blood Pressure 95/47 95/47 97/48 O2 Sat by Pulse 90 90 89 Oximetry 07/21/19 07/21/19 07/21/19 11:00 11:15 12:00 Temperature 98.8 F Pulse Rate 84 85 84 Pulse Rate [ Right Dorsalis Pedis] Respiratory 26 H 26 H Rate Blood Pressure 94/47 94/48 97/52 O2 Sat by Pulse 91 91 92 Oximetry - General physical appearance no distress, no pain, other (minimally responsive) - Integumentary other (less erythema on dorsum on right foot. restricted to 2nd toe and adjacent area. Removed overlying scab and expressed a few drops of purulent fluid. ) - Labs 07/21/19 05:00 07/21/19 05:00 Diabetes panel 07/21/19 Range/Units 05:00 Sodium 147 H (137-145) mmol/L Potassium 3.5 L (3.6-5.0) mmol/L Chloride 111.4 H (98-107) mmol/L Carbon Dioxide 29 (22-30) mmol/L BUN 21 H (7-17) mg/dL Creatinine 0.7 (0.7-1.2) mg/dL Glucose 107 H (65-100) mg/dL Calcium 7.6 L (8.4-10.2) mg/dL AST 48 H (5-40) units/L ALT 27 (7-56) units/L Alkaline Phosphatase 131 H (35-129) units/L Total Protein 4.3 L (6.3-8.2) g/dL Albumin 1.5 L (3.9-5) g/dL Calcium panel 07/21/19 07/21/19 Range/Units 05:00 05:00 Calcium 7.6 L (8.4-10.2) mg/dL Phosphorus 1.60 L (2.5-4.5) mg/dL Albumin 1.5 L (3.9-5) g/dL Pituitary panel 07/21/19 Range/Units 05:00 Sodium 147 H (137-145) mmol/L Potassium 3.5 L (3.6-5.0) mmol/L Chloride 111.4 H (98-107) mmol/L Carbon Dioxide 29 (22-30) mmol/L BUN 21 H (7-17) mg/dL Creatinine 0.7 (0.7-1.2) mg/dL Glucose 107 H (65-100) mg/dL Calcium 7.6 L (8.4-10.2) mg/dL Adrenal panel 07/21/19 Range/Units 05:00 Sodium 147 H (137-145) mmol/L Potassium 3.5 L (3.6-5.0) mmol/L Chloride 111.4 H (98-107) mmol/L Carbon Dioxide 29 (22-30) mmol/L BUN 21 H (7-17) mg/dL Creatinine 0.7 (0.7-1.2) mg/dL Glucose 107 H (65-100) mg/dL Calcium 7.6 L (8.4-10.2) mg/dL Total Bilirubin 4.80 H (0.1-1.2) mg/dL AST 48 H (5-40) units/L ALT 27 (7-56) units/L Alkaline Phosphatase 131 H (35-129) units/L Total Protein 4.3 L (6.3-8.2) g/dL Albumin 1.5 L (3.9-5) g/dL
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
[2019-07-21] MEDS: FLAGYL 500 MG/100 ML 500 MG/100 ML BAG IV SCH ×2 (14:48→21:46)
[2019-07-21] MEDS: D5W 1,000 ML IV SCH (14:48)
--- NOTE | 2019-07-21 14:50 | Progress Note ---
Assessment and Plan /Acute hypoxic respiratory failure; requiring intubation - ARDS Likely from severe sepsis Continue ventilatory support , nebulizers, supportive care Pulmonary critical following, wean as tolerated Requiring high FiO2 to maintain oxygen saturation / Severe sepsis with Septic shock and organ failure/right foot i nfection/pyelonephritis/bacreremia Secondary to pyelonephritis and Escherichia coli bacteremia. Remained on pressor, Continue abs per ID, follow cultures /E.coli bacteremia, likely source from pyelonephritis There is also concern for cholecystitis- general surgery following -HIDA scan ordered but pending /Transaminitis - Could be from severe sepsis versus possible underlying cholecystitis - Continue to trend LFTs, follow HIDA scan / Acute pyelonephritis To be improving. Decreased leukocytosis. She remains extremely ill. Remains on pressors Overall prognosis remains poor especially with the new diagnosis of ARDS / Cellulitis of right foot, on abx /Acute renal failure due to vessel monitored and appropriately from severe sepsis Creatinine was 2.2 on admission monitor renal function, Cr now stable / Malnutrition Nutrition corrected by NG tube feedings. Nutrition following /Electrolyte imbalance Hyponatremia -manage with free water and awake to feeding Hypokalemia - continue to replete as needed and continue to monitor BMP Hypomagnesemia - repleted, continue to follow The high probability of a clinically significant, sudden or life threatening deterioration of the [pulmonary, renal, infectious, metabolic] system(s) required my full and direct attention, intervention and personal management. The aggregate critical care time was [35] minutes. This time is in addition to time spent performing reported procedures but includes the following: x[] Data Review and interpretation x[] Patient assessment and monitoring of vital signs [x] Documentation [x] Medication orders and management Brief history The patient is a 44-year-old female with bipolar disorder presented to the emergency room with right foot pain, abdominal pain and fevers. She previously presented to the emergency room on 06/28/2019 with right foot with redness and pain following a possible spider bite. She was given a prescription for oral Augmentin and was discharged home. Patient stated that she was compliant with Augmentin and also was soaking her right foot in Epsom salts. About 2-3 days prior to admission, she started developing fevers, nausea as well as worsening abdominal pain. She has presented to the emergency room and was hospitalized. She was noted to be septic,Started on empiric antibiotics. She decompensated on the floor and required intubation and transferred to ICU for further management on 07/17/2019. Also requiring pressors for septic shock, blood culture growing Escherichia coli bacteremia. There is also concern for acute cholecystitis - HIDA scan ordered but pending as patient is not clinically stable to obtain the test. Radiological data: CT abdomen/pelvis: 1. Mild nonspecific left-sided perinephric stranding in this patient with punctate bilateral nonobstructive nephrolithiasis. No asymmetric hydronephrosis or ureteral stone disease. 2. Complex cyst versus mass in the left ovary. Recomm end nonemergent follow-up pelvic ultrasound. 3. Mild periportal edema could be related to aggressive hydration therapy. 4. Other incidental findings as outlined above on this limited noncontrast exam with mild motion artifact. Of note, there is a 5 mm nodule in the right middle lobe. Please see below recommendations. Abdomen ultrasound: 1. No gallstones, but the gallbladder wall is thickened and edematous. 2. Small bilateral pleural effusions. Hospitalist Physical General appearance: Present: no acute distress, well-nourished, other (intubated on ventilatory support and sedated) - EENT Eyes: Present: PERRL, EOM intact - Neck Neck: Present: supple, normal ROM - Respiratory Respiratory effort: labored Respiratory: bilateral: diminished, rhonchi, negative: rales, wheezing - Cardiovascular Rhythm: regular Heart Sounds: Present: S1 & S2 - Extremities Extremities: no ischemia, abnormal (cellulitis lower extremity) Extremity abnormal: edema - Abdominal General gastrointestinal: soft, non-tender, non-distended, normal bowel sounds - Integumentary Integumentary: Present: clear, warm - Psychiatric Psychiatric: other (intubated on vent) - Neurologic Neurologic: other (intubated on vent) Subjective Date of service: 07/21/19 Principal diagnosis: Acute respiratory failure Interval history: Patient seen and examined Remain intubated with high FiO2 Remained on pressor support Tolerating tube feeding Objective - Constitutional Vitals: Vital Signs - 12hr 07/21/19 07/21/19 07/21/19 03:00 03:15 03:30 Temperature Pulse Rate 78 77 79 Pulse Rate [ 80 Right Dorsalis Pedis] Respiratory 26 H 26 H 26 H Rate Blood Pressure 92/45 94/50 91/51 O2 Sat by Pulse 95 96 96 Oximetry 07/21/19 07/21/19 07/21/19 03:45 04:00 04:05 Temperature Pulse Rate 77 76 77 Pulse Rate [ 76 Right Dorsalis Pedis] Respiratory 26 H 26 H Rate Blood Pressure 92/52 91/47 91/47 O2 Sat by Pulse 97 97 96 Oximetry 07/21/19 07/21/19 07/21/19 04:15 04:30 04:45 Temperature Pulse Rate 75 76 77 Pulse Rate [ Right Dorsalis Pedis] Respiratory 26 H 26 H 26 H Rate Blood Pressure 93/50 93/51 93/52 O2 Sat by Pulse 96 96 96 Oximetry 07/21/19 07/21/19 07/21/19 05:00 05:15 05:30 Temperature Pulse Rate 89 84 86 Pulse Rate [ Right Dorsalis Pedis] Respiratory 25 H 26 H 26 H Rate Blood Pressure 106/40 98/48 101/52 O2 Sat by Pulse 85 95 94 Oximetry 07/21/19 07/21/19 07/21/19 05:45 06:00 06:15 Temperature Pulse Rate 96 H 101 H 93 H Pulse Rate [ Right Dorsalis Pedis] Respiratory 26 H 26 H 26 H Rate Blood Pressure 101/52 117/60 107/52 O2 Sat by Pulse 90 85 92 Oximetry 07/21/19 07/21/19 07/21/19 06:30 06:45 07:00 Temperature Pulse Rate 87 84 85 Pulse Rate [ Right Dorsalis Pedis] Respiratory 26 H 26 H 26 H Rate Blood Pressure 104/53 101/52 99/48 O2 Sat by Pulse 92 92 91 Oximetry 07/21/19 07/21/19 07/21/19 07:15 07:30 07:45 Temperature Pulse Rate 83 84 81 Pulse Rate [ Right Dorsalis Pedis] Respiratory 26 H 26 H 25 H Rate Blood Pressure 97/49 96/47 95/49 O2 Sat by Pulse 91 91 92 Oximetry 07/21/19 07/21/19 07/21/19 07:49 08:00 08:15 Temperature 98.9 F Pulse Rate 98 H 83 83 Pulse Rate [ Right Dorsalis Pedis] Respiratory 26 H 23 Rate Blood Pressure 95/49 104/49 97/47 O2 Sat by Pulse 97 92 93 Oximetry 07/21/19 07/21/19 07/21/19 08:30 08:45 09:00 Temperature Pulse Rate 83 86 82 Pulse Rate [ Right Dorsalis Pedis] Respiratory 23 12 26 H Rate Blood Pressure 96/51 94/48 97/48 O2 Sat by Pulse 93 91 92 Oximetry 07/21/19 07/21/19 07/21/19 09:15 09:30 09:45 Temperature Pulse Rate 82 105 H 90 Pulse Rate [ Right Dorsalis Pedis] Respiratory 25 H 26 H 26 H Rate Blood Pressure 96/47 113/59 101/47 O2 Sat by Pulse 91 98 90 Oximetry 07/21/19 07/21/19 07/21/19 10:00 10:15 10:30 Temperature Pulse Rate 89 87 88 Pulse Rate [ Right Dorsalis Pedis] Respiratory 26 H 26 H 26 H Rate Blood Pressure 101/48 95/47 95/47 O2 Sat by Pulse 90 90 90 Oximetry 07/21/19 07/21/19 07/21/19 10:45 11:00 11:15 Temperature Pulse Rate 87 84 85 Pulse Rate [ Right Dorsalis Pedis] Respiratory 26 H 26 H 26 H Rate Blood Pressure 97/48 94/47 94/48 O2 Sat by Pulse 89 91 91 Oximetry 07/21/19 07/21/19 07/21/19 11:30 11:45 12:00 Temperature 98.8 F Pulse Rate 83 86 84 Pulse Rate [ Right Dorsalis Pedis] Respiratory 26 H 26 H 26 H Rate Blood Pressure 97/50 98/51 97/52 O2 Sat by Pulse 92 92 92 Oximetry 07/21/19 07/21/19 07/21/19 12:15 12:31 12:45 Temperature Pulse Rate 95 H 103 H 100 H Pulse Rate [ Right Dorsalis Pedis] Respiratory 26 H 26 H 26 H Rate Blood Pressure 92/50 116/58 108/53 O2 Sat by Pulse 90 83 L 90 Oximetry 07/21/19 07/21/19 07/21/19 13:00 13:15 13:30 Temperature Pulse Rate 96 H 96 H 107 H Pulse Rate [ Right Dorsalis Pedis] Respiratory 26 H 26 H 24 Rate Blood Pressure 109/51 106/51 105/50 O2 Sat by Pulse 89 88 89 Oximetry 07/21/19 07/21/19 13:45 14:00 Temperature Pulse Rate 100 H 98 H Pulse Rate [ Right Dorsalis Pedis] Respiratory 26 H 25 H Rate Blood Pressure 109/52 107/54 O2 Sat by Pulse 89 88 Oximetry - Labs CBC & Chem 7: 07/22/19 07:00 07/23/19 04:50 Labs: Abnormal lab results 07/20/19 07/20/19 07/20/19 Range/Units 15:47 17:25 23:57 WBC (4.5-11.0) K/mm3 Plt Count (140-440) K/mm3 ABG pO2 (80.0-90.0) mm Hg ABG HCO3 (20.0-26.0) mmol/L ABG O2 Saturation (95.0-99.0) % ABG Hemoglobin (12.0-16.0) gm/dl Oxyhemoglobin (95.0-99.0) % Sodium (137-145) mmol/L Potassium (3.6-5.0) mmol/L Chloride (98-107) mmol/L BUN (7-17) mg/dL Glucose (65-100) mg/dL POC Glucose 160 H 165 H 122 H (70-105) Calcium (8.4-10.2) mg/dL Phosphorus (2.5-4.5) mg/dL Total Bilirubin (0.1-1.2) mg/dL AST (5-40) units/L Alkaline Phosphatase (35-129) units/L Total Protein (6.3-8.2) g/dL Albumin (3.9-5) g/dL 07/21/19 07/21/19 07/21/19 Range/Units 05:00 05:00 05:00 WBC 15.8 H (4.5-11.0) K/mm3 Plt Count 56 L (140-440) K/mm3 ABG pO2 (80.0-90.0) mm Hg ABG HCO3 (20.0-26.0) mmol/L ABG O2 Saturation (95.0-99.0) % ABG Hemoglobin (12.0-16.0) gm/dl Oxyhemoglobin (95.0-99.0) % Sodium 147 H (137-145) mmol/L Potassium 3.5 L (3.6-5.0) mmol/L Chloride 111.4 H (98-107) mmol/L BUN 21 H (7-17) mg/dL Glucose 107 H (65-100) mg/dL POC Glucose (70-105) Calcium 7.6 L (8.4-10.2) mg/dL Phosphorus 1.60 L (2.5-4.5) mg/dL Total Bilirubin 4.80 H (0.1-1.2) mg/dL AST 48 H (5-40) units/L Alkaline Phosphatase 131 H (35-129) units/L Total Protein 4.3 L (6.3-8.2) g/dL Albumin 1.5 L (3.9-5) g/dL 07/21/19 07/21/19 07/21/19 Range/Units 05:34 12:12 Unknown WBC (4.5-11.0) K/mm3 Plt Count (140-440) K/mm3 ABG pO2 61.9 L (80.0-90.0) mm Hg ABG HCO3 28.9 H (20.0-26.0) mmol/L ABG O2 Saturation 93.5 L (95.0-99.0) % ABG Hemoglobin 10.8 L (12.0-16.0) gm/dl Oxyhemoglobin 91.6 L (95.0-99.0) % Sodium (137-145) mmol/L Potassium (3.6-5.0) mmol/L Chloride (98-107) mmol/L BUN (7-17) mg/dL Glucose (65-100) mg/dL POC Glucose 119 H 108 H (70-105) Calcium (8.4-10.2) mg/dL Phosphorus (2.5-4.5) mg/dL Total Bilirubin (0.1-1.2) mg/dL AST (5-40) units/L Alkaline Phosphatase (35-129) units/L Total Protein (6.3-8.2) g/dL Albumin (3.9-5) g/dL
--- NOTE | 2019-07-21 18:52 | Progress Note ---
Assessment and Plan - Patient Problems (1) Acute kidney injury (CRISTAIN) with acute tubular necrosis (ATN) Current Visit: Yes Status: Acute Plan to address problem: Kidney function has improved. Follow-up electrolytes and renal function (2) Pyelonephritis, acute Current Visit: Yes Status: Acute Plan to address problem: Continue antibiotics. (3) Hypernatremia Current Visit: Yes Status: Acute Plan to address problem: Hypernatremia is now improving. Continue free water replacement orally and parenterally (4) Hypokalemia Current Visit: Yes Status: Acute Plan to address problem: Supplement potassium and follow-up level. (5) Acute respiratory failure Current Visit: Yes Status: Acute Plan to address problem: Continue ventilator management (6) Elevated LFTs Current Visit: Yes Status: Acute Plan to address problem: Ischemic Hepatitis. Follow-up liver function tests (7) Septic shock Current Visit: Yes Status: Acute Plan to address problem: Still on Levophed at 6 mcgs per minutes. Continue antibiotics per infectious disease appropriately adjusted to the degree of renal function (8) Cellulitis of right foot Current Visit: Yes Status: Resolved Plan to address problem: Continue antibiotics Subjective Date of service: 07/21/19 Principal diagnosis: Acute respiratory failure Interval history: Patient seen lying in bed. Intubated on ventilator. No Family at bedside. Not following commands. Agitated. Objective - Exam Narrative Exam: Young female lying in bed intubated on the ventilator HEENT: NCAT, endotracheal tube intact Neck: Supple, no venous distention CVS: S1S2 RRR with no murmur, rub or gallop Chest: Coarse breath sounds Abdomen: Protuberant, soft, nontender, no organomegaly, bowel sounds are present Extremities: 2+edema and dressing intact Neuro: Agitated, intubated and ventilated - Vital Signs Vital signs: Vital Signs - 12hr 07/21/19 07/21/19 07/21/19 07:00 07:15 07:30 Temperature Pulse Rate 85 83 84 Respiratory 26 H 26 H 26 H Rate Blood Pressure 99/48 97/49 96/47 O2 Sat by Pulse 91 91 91 Oximetry 07/21/19 07/21/19 07/21/19 07:45 07:49 08:00 Temperature 98.9 F Pulse Rate 81 98 H 83 Respiratory 25 H 26 H Rate Blood Pressure 95/49 95/49 104/49 O2 Sat by Pulse 92 97 92 Oximetry 07/21/19 07/21/19 07/21/19 08:15 08:30 08:45 Temperature Pulse Rate 83 83 86 Respiratory 23 23 12 Rate Blood Pressure 97/47 96/51 94/48 O2 Sat by Pulse 93 93 91 Oximetry 07/21/19 07/21/19 07/21/19 09:00 09:15 09:30 Temperature Pulse Rate 82 82 105 H Respiratory 26 H 25 H 26 H Rate Blood Pressure 97/48 96/47 113/59 O2 Sat by Pulse 92 91 98 Oximetry 07/21/19 07/21/19 07/21/19 09:45 10:00 10:15 Temperature Pulse Rate 90 89 87 Respiratory 26 H 26 H 26 H Rate Blood Pressure 101/47 101/48 95/47 O2 Sat by Pulse 90 90 90 Oximetry 07/21/19 07/21/19 07/21/19 10:30 10:45 11:00 Temperature Pulse Rate 88 87 84 Respiratory 26 H 26 H 26 H Rate Blood Pressure 95/47 97/48 94/47 O2 Sat by Pulse 90 89 91 Oximetry 07/21/19 07/21/19 07/21/19 11:15 11:30 11:45 Temperature Pulse Rate 85 83 86 Respiratory 26 H 26 H 26 H Rate Blood Pressure 94/48 97/50 98/51 O2 Sat by Pulse 91 92 92 Oximetry 07/21/19 07/21/19 07/21/19 12:00 12:15 12:31 Temperature 98.8 F Pulse Rate 84 95 H 103 H Respiratory 26 H 26 H 26 H Rate Blood Pressure 97/52 92/50 116/58 O2 Sat by Pulse 92 90 83 L Oximetry 07/21/19 07/21/19 07/21/19 12:45 13:00 13:15 Temperature Pulse Rate 100 H 96 H 96 H Respiratory 26 H 26 H 26 H Rate Blood Pressure 108/53 109/51 106/51 O2 Sat by Pulse 90 89 88 Oximetry 07/21/19 07/21/19 07/21/19 13:30 13:45 14:00 Temperature Pulse Rate 107 H 100 H 98 H Respiratory 24 26 H 25 H Rate Blood Pressure 105/50 109/52 107/54 O2 Sat by Pulse 89 89 88 Oximetry 07/21/19 07/21/19 07/21/19 14:15 14:30 14:45 Temperature Pulse Rate 93 H 99 H 96 H Respiratory 26 H 26 H 26 H Rate Blood Pressure 104/52 108/53 105/52 O2 Sat by Pulse 89 87 88 Oximetry 07/21/19 07/21/19 07/21/19 14:53 15:00 15:15 Temperature Pulse Rate 94 H 100 H 94 H Respiratory 26 H 26 H Rate Blood Pressure 105/52 113/54 104/51 O2 Sat by Pulse 96 98 92 Oximetry 07/21/19 07/21/19 07/21/19 15:30 15:45 16:00 Temperature 99.1 F Pulse Rate 101 H 97 H 105 H Respiratory 26 H 26 H 25 H Rate Blood Pressure 112/54 108/50 113/60 O2 Sat by Pulse 89 89 88 Oximetry 07/21/19 07/21/19 07/21/19 16:15 16:30 16:45 Temperature Pulse Rate 103 H 99 H 97 H Respiratory 19 26 H 26 H Rate Blood Pressure 113/60 109/46 108/48 O2 Sat by Pulse 95 88 89 Oximetry 07/21/19 07/21/19 07/21/19 17:00 17:15 17:20 Temperature Pulse Rate 96 H 92 H 92 H Respiratory 26 H 26 H Rate Blood Pressure 104/47 102/44 102/44 O2 Sat by Pulse 89 90 97 Oximetry 07/21/19 07/21/19 07/21/19 17:30 17:45 18:00 Temperature Pulse Rate 96 H 96 H 98 H Respiratory 26 H 26 H 26 H Rate Blood Pressure 100/47 100/45 105/46 O2 Sat by Pulse 89 89 90 Oximetry 07/21/19 18:15 Temperature Pulse Rate 112 H Respiratory 19 Rate Blood Pressure 118/57 O2 Sat by Pulse 87 Oximetry - Lab 07/21/19 05:00 07/21/19 05:00 Most recent lab results ABG pH 7.376 pH Units (7.350-7.450) 07/21/19 Unknown ABG pCO2 50.5 mm Hg 07/21/19 Unknown ABG pO2 61.9 mm Hg (80.0-90.0) L 07/21/19 Unknown ABG HCO3 28.9 mmol/L (20.0-26.0) H 07/21/19 Unknown ABG O2 Saturation 93.5 % (95.0-99.0) L 07/21/19 Unknown Calcium 7.6 mg/dL (8.4-10.2) L 07/21/19 05:00 Phosphorus 1.60 mg/dL (2.5-4.5) L 07/21/19 05:00 Magnesium 1.90 mg/dL (1.7-2.3) 07/21/19 05:00 76.6 mg/dL (0.1-20.0) H 07/16/19 14:30 39 mmol/L 07/16/19 14:30 Medications & Allergies - Medications Allergies/Adverse Reactions: Allergies latex Allergy (Verified 06/28/19 17:11) Anaphylaxis tramadol [From Ultram] Allergy (Verified 06/28/19 17:10) Unknown haloperidol [From Haldol] Adverse Reaction (Verified 07/17/19 05:55) Shortness of Breath agitation/combative ketorolac [From Toradol] Adverse Reaction (Verified 06/28/19 17:10) Seizure prochlorperazine [From Compazine] Adverse Reaction (Verified 06/28/19 17:11) Unknown Home Medications: Home Medications Medication Instructions Recorded Confirmed Last Taken Type No Known Home Medications [No 07/16/19 07/16/19 Unknown History Reported Home Medications] Active Medications: Generic Name Dose Route Start Last Admin Trade Name Freq PRN Reason Stop Dose Admin Acetaminophen 650 mg 07/16/19 05:36 Tylenol PO Q4H PRN Pain MILD(1-3)/Fever >100.5/WHALEN Albuterol 2.5 mg 07/16/19 22:48 07/16/19 23:01 Proventil IH 2.5 mg Q4HRT PRN Administration Shortness Of Breath Lipase/Protease/Amylase 1 each 07/18/19 14:34 Pancrenicolás Thomas 10,500 Unit FEEDTUBE PRN PRN For Clogged Feeding Tube Dextrose 50 ml 07/17/19 03:17 07/17/19 05:30 D50w (25gm) Syringe IV 50 ml PRN PRN Administration Hypoglycemia Enoxaparin Sodium 40 mg 07/20/19 10:00 07/21/19 09:09 Lovenox SUB-Q 40 mg QDAY@1000 KASIE Administration Famotidine 20 mg 07/20/19 10:00 07/21/19 09:09 Pepcid PO 20 mg BID KASIE Administration Fentanyl 50 mcg 07/17/19 03:18 07/17/19 04:53 Sublimaze IV 50 mcg Q10MIN PRN Administration ANALGESIA Hydromorphone HCl 0.25 mg 07/16/19 05:36 07/21/19 01:07 Dilaudid IV 0.25 mg Q3H PRN Administration Pain, Moderate (4-6) Hydrophilic Ointment 1 applic 07/17/19 03:18 Vaseline Lip Therapy TP Q2HR PRN Dry Lips Vasopressin 20 unit/ Sodium 101 mls @ 9.09 mls/hr 07/16/19 20:00 07/20/19 10:56 Chloride IV Infused TITR KASIE Titration Protocol 0.03 UNITS/MIN Norepinephrine 8 mg/ Sodium 250 mls @ 3.75 mls/hr 07/16/19 21:00 07/21/19 14:47 Chloride IV 4 mcg/min TITR KASIE 7.5 mls/hr Titration Protocol 2 MCG/MIN Midazolam HCl 100 mg/ Sodium 100 mls @ 2 mls/hr 07/17/19 04:00 07/21/19 01:46 Chloride IV 1 mg/hr TITR KASIE 1 mls/hr Administration Protocol 2 MG/HR Fentanyl Citrate 2,000 mcg in 100 mls @ 3.4 mls/hr 07/17/19 04:00 07/21/19 08:11 Fentanyl Drip Premix IV 2 mcg/kg/hr TITR KASIE 6.8 mls/hr Administration Protocol 1 MCG/KG/HR Phenylephrine HCl 100 mg/ 100 mls @ 3 mls/hr 07/17/19 09:30 07/18/19 15:50 Sodium Chloride IV 0 mcg/min TITR KASIE 0 mls/hr Titration Protocol 50 MCG/MIN Dextrose 1,000 mls @ 75 mls/hr 07/20/19 12:00 07/21/19 14:48 D5w IV 75 mls/hr DIRECT KASIE Administration Ceftriaxone Sodium 2 gm in 100 mls @ 200 mls/hr 07/20/19 13:00 07/21/19 09:10 Rocephin/Ns 2 Gm/100 Ml IV 200 mls/hr Q24HR KASIE Administration Protocol Vancomycin HCl 1 gm in 250 mls @ 167.007 mls/hr 07/20/19 22:00 07/21/19 09:10 Vancomycin/Ns 1 Gm/250 Ml IV 167.007 mls/hr Q12HR KASIE Administration Metronidazole 500 mg in 100 mls @ 100 mls/hr 07/21/19 15:00 07/21/19 14:48 Flagyl 500 Mg/100 Ml IV 100 mls/hr Q8HR KASIE Administration Protocol Midazolam HCl 2 mg 07/17/19 03:18 07/20/19 23:32 Versed IV 2 mg Q10MIN PRN Administration Sedation Multi-Ingred Cream/Lotion/Oil/Oint 1 applic 07/17/19 03:18 Artificial Tears Ophth Oint OU Q4HR PRN Dry Eye(s) Nicotine 14 mg 07/16/19 10:00 07/21/19 09:09 Habitrol TD 14 mg QDAY KASIE Administration Ondansetron HCl 4 mg 07/16/19 05:36 07/16/19 21:16 Zofran IV 4 mg Q8H PRN Administration Nausea And Vomiting Oxycodone/Acetaminophen 1 tab 07/16/19 05:36 07/16/19 12:33 Percocet 5/325 PO 1 tab Q6H PRN Administration Pain, Moderate (4-6) Simple Syrup 15 ml 07/18/19 14:34 Simple Syrup FEEDTUBE PRN PRN Hypoglycemia Simple Syrup 30 ml 07/18/19 14:34 Simple Syrup FEEDTUBE PRN PRN Hypoglycemia Sodium Bicarbonate 325 mg 07/18/19 14:34 Sodium Bicarbonate FEEDTUBE PRN PRN For Clogged Feeding Tube Sodium Chloride 10 ml 07/16/19 10:00 07/21/19 09:09 Sodium Chloride Flush Syringe 10 Ml IV 10 ml BID KASIE Administration Sodium Chloride 10 ml 07/16/19 05:36 Sodium Chloride Flush Syringe 10 Ml IV PRN PRN LINE FLUSH
--- NOTE | 2019-07-22 02:54 | XRay Report ---
CHEST 1 VIEW 2:09 AM INDICATION / CLINICAL INFORMATION: Follow-up respiratory failure. COMPARISON: Yesterday. FINDINGS: SUPPORT DEVICES: The positions of the endotracheal tube, feeding tube and right jugular CVL have not changed. HEART / MEDIASTINUM: Unchanged. LUNGS / PLEURA: Moderately severe diffuse bilateral parenchymal disease has shown mild improvement. N o pneumothorax. ADDITIONAL FINDINGS: No significant additional findings. IMPRESSION: Mild improvement in moderately severe diffuse bilateral parenchymal disease since yesterd ay. Signer Name: Parag Navarrete MD Signed: 07/22/2019 2:49 AM Workstation Name: [id number]
[2019-07-22 05:02] LABS: ABG Base Excess 3.5 mmol/L (-2.0-3.0); ABG HCO3 29.1 mmol/L (20.0-26.0); ABG Methemoglobin 0.5 % (0.0-1.5); ABG Oxygen Saturation 94.4 % (95.0-99.0); ABG PCO2 48.7 mm Hg; ABG PH 7.395 pH Units (7.350-7.450); ABG PO2 68.7 mm Hg (80.0-90.0)
[2019-07-22] MEDS: SODIUM CHLORIDE FLUSH SYRINGE 10 ML IV SCH ×3 (05:17→22:21)
[2019-07-22] MEDS: FREE WATER PO SCH ×8 (05:18→23:50)
[2019-07-22] MEDS: fentaNYL DRIP Premix 2,000 MCG/100 ML BAG IV SCH ×2 (07:30→18:31)
[2019-07-22] MEDS: FLAGYL 500 MG/100 ML 500 MG/100 ML BAG IV SCH ×3 (07:32→22:20)
[2019-07-22] MEDS: D5W 1,000 ML IV SCH (07:32)
[2019-07-22 07:38] LABS: Hematocrit 32.7 % (30.3-42.9); Hemoglobin 11.1 gm/dl (10.1-14.3); Mean Corpuscular HGB Conc 34 % (30-34); Mean Corpuscular Volume 88 fl (79-97); Red Blood Count 3.71 M/mm3 (3.65-5.03); Red Cell Distribution Width 14.6 % (13.2-15.2)
[2019-07-22 07:39] LABS: Platelet Count 87 K/mm3 (140-440)
[2019-07-22 07:56] LABS: BUN/Creatinine Ratio 28; Blood Urea Nitrogen 17 mg/dL (7-17); Calcium 7.5 mg/dL (8.4-10.2); Hemolysis Index 6
[2019-07-22] MEDS ORDERED: POTASSIUM CHLORIDE FEEDTUBE ONE (09:00)
[2019-07-22] MEDS: LEVOPHED DRIP 4 MG/NS 250 ML 4 MG/250 ML BAG IV SCH ×2 (09:30→20:34)
[2019-07-22] MEDS: ROCEPHIN/NS 2 GM/100 ML 2 GM/100 ML BAG IV SCH (09:55)
[2019-07-22] MEDS: PEPCID PO SCH ×2 (09:56→22:20)
[2019-07-22] MEDS: HABITROL TD SCH (09:56)
[2019-07-22] MEDS: LOVENOX SUB-Q SCH (09:56)
[2019-07-22] MEDS: VANCOMYCIN/NS 1 GM/250 ML 1 GM/250 ML BAG IV SCH ×2 (10:36→22:20)
[2019-07-22] MEDS ORDERED: KCL 10MEQ/100ML 10 MEQ/100 ML BAG IV SCH (11:00)
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
--- NOTE | 2019-07-22 12:06 | Progress Note ---
Assessment and Plan - Patient Problems (1) Cellulitis of right foot Current Visit: Yes Status: Resolved Plan to address problem: Pt in critical condition. This is not related to foot infection. Continue routine wound care. Await HIDA result. If cholecystitis is suggested, would recommend that IR place drain into gallbladder. Once she recovers, then surgery could be considered in the future. Will follow peripherally. Please call with questions. time=10min Subjective Date of service: 07/22/19 Patient Reports: Positive: other (unable to get HIDA done due to instability) Objective Vital Signs - 12hr 07/22/19 07/22/19 07/22/19 00:15 00:30 00:45 Temperature Pulse Rate 104 H 102 H 102 H Pulse Rate [ From Monitor] Respiratory 28 H 27 H 27 H Rate Blood Pressure 112/50 108/47 115/51 O2 Sat by Pulse 92 92 93 Oximetry 07/22/19 07/22/19 07/22/19 01:00 01:15 01:30 Temperature Pulse Rate 99 H 97 H 100 H Pulse Rate [ From Monitor] Respiratory 28 H 27 H 27 H Rate Blood Pressure 111/49 107/47 112/48 O2 Sat by Pulse 93 93 93 Oximetry 07/22/19 07/22/19 07/22/19 01:45 02:00 02:15 Temperature Pulse Rate 96 H 95 H 103 H Pulse Rate [ From Monitor] Respiratory 27 H 26 H 30 H Rate Blood Pressure 105/46 105/51 126/64 O2 Sat by Pulse 93 94 90 Oximetry 07/22/19 07/22/19 07/22/19 02:30 02:45 03:00 Temperature Pulse Rate 103 H 99 H 99 H Pulse Rate [ From Monitor] Respiratory 26 H 26 H 26 H Rate Blood Pressure 112/50 114/49 106/49 O2 Sat by Pulse 93 93 93 Oximetry 07/22/19 07/22/19 07/22/19 03:15 03:30 03:45 Temperature Pulse Rate 98 H 97 H 95 H Pulse Rate [ From Monitor] Respiratory 26 H 26 H 26 H Rate Blood Pressure 107/51 113/48 108/47 O2 Sat by Pulse 93 93 93 Oximetry 07/22/19 07/22/19 07/22/19 04:00 04:15 04:30 Temperature 100.3 F H Pulse Rate 95 H 105 H 115 H Pulse Rate [ 112 H From Monitor] Respiratory 26 H 26 H 24 Rate Blood Pressure 108/49 108/49 126/59 O2 Sat by Pulse 93 93 92 Oximetry 07/22/19 07/22/19 07/22/19 04:45 04:51 05:00 Temperature Pulse Rate 104 H 102 H 108 H Pulse Rate [ From Monitor] Respiratory 26 H 26 H Rate Blood Pressure 119/51 119/51 126/52 O2 Sat by Pulse 92 92 93 Oximetry 07/22/19 07/22/19 07/22/19 05:15 05:30 05:45 Temperature Pulse Rate 104 H 114 H 110 H Pulse Rate [ From Monitor] Respiratory 27 H 27 H 26 H Rate Blood Pressure 121/50 126/55 117/53 O2 Sat by Pulse 93 91 93 Oximetry 07/22/19 07/22/19 07/22/19 06:00 06:15 06:30 Temperature Pulse Rate 111 H 110 H 102 H Pulse Rate [ From Monitor] Respiratory 27 H 27 H 26 H Rate Blood Pressure 120/54 114/51 110/49 O2 Sat by Pulse 93 93 93 Oximetry 07/22/19 07/22/19 07/22/19 06:45 07:00 07:15 Temperature Pulse Rate 114 H 111 H 106 H Pulse Rate [ From Monitor] Respiratory 27 H 24 27 H Rate Blood Pressure 123/53 113/52 108/50 O2 Sat by Pulse 91 93 93 Oximetry 07/22/19 07/22/19 07/22/19 07:30 07:45 08:00 Temperature 99.5 F Pulse Rate 114 H 100 H 112 H Pulse Rate [ 97 H From Monitor] Respiratory 24 26 H 20 Rate Blood Pressure 110/57 106/49 103/58 O2 Sat by Pulse 93 93 95 Oximetry 07/22/19 07/22/19 07/22/19 08:10 08:15 08:30 Temperature Pulse Rate 99 H 104 H 96 H Pulse Rate [ From Monitor] Respiratory 27 H 26 H Rate Blood Pressure 103/58 117/55 103/42 O2 Sat by Pulse 94 97 94 Oximetry - General physical appearance no distress, no pain - Respiratory normal expansion, normal respiratory effort - Integumentary other (mild increased erythema around right 2nd toe. No further drainage.) - Labs 07/22/19 07:00 07/22/19 07:00 Diabetes panel 07/22/19 Range/Units 07:00 Sodium 147 H (137-145) mmol/L Potassium 3.3 L (3.6-5.0) mmol/L Chloride 110.9 H (98-107) mmol/L Carbon Dioxide 29 (22-30) mmol/L BUN 17 (7-17) mg/dL Creatinine 0.6 L (0.7-1.2) mg/dL Glucose 107 H (65-100) mg/dL Calcium 7.5 L (8.4-10.2) mg/dL Calcium panel 07/22/19 Range/Units 07:00 Calcium 7.5 L (8.4-10.2) mg/dL Pituitary panel 07/22/19 Range/Units 07:00 Sodium 147 H (137-145) mmol/L Potassium 3.3 L (3.6-5.0) mmol/L Chloride 110.9 H (98-107) mmol/L Carbon Dioxide 29 (22-30) mmol/L BUN 17 (7-17) mg/dL Creatinine 0.6 L (0.7-1.2) mg/dL Glucose 107 H (65-100) mg/dL Calcium 7.5 L (8.4-10.2) mg/dL Adrenal panel 07/22/19 Range/Units 07:00 Sodium 147 H (137-145) mmol/L Potassium 3.3 L (3.6-5.0) mmol/L Chloride 110.9 H (98-107) mmol/L Carbon Dioxide 29 (22-30) mmol/L BUN 17 (7-17) mg/dL Creatinine 0.6 L (0.7-1.2) mg/dL Glucose 107 H (65-100) mg/dL Calcium 7.5 L (8.4-10.2) mg/dL
--- NOTE | 2019-07-22 12:21 | Progress Note ---
Assessment and Plan - Patient Problems (1) Acute kidney injury (CRISTIAN) with acute tubular necrosis (ATN) Current Visit: Yes Status: Acute Plan to address problem: Kidney function has improved. Follow-up electrolytes and renal function (2) Pyelonephritis, acute Current Visit: Yes Status: Acute Plan to address problem: Continue antibiotics. (3) Hypernatremia Current Visit: Yes Status: Acute Plan to address problem: Hypernatremia is now improving. Continue free water replacement orally and parenterally (4) Hypokalemia Current Visit: Yes Status: Acute Plan to address problem: Supplement potassium and follow-up level. (5) Acute respiratory failure Current Visit: Yes Status: Acute Plan to address problem: Continue ventilator management (6) Elevated LFTs Current Visit: Yes Status: Acute Plan to address problem: Ischemic Hepatitis. Follow-up liver function tests (7) Septic shock Current Visit: Yes Status: Acute Plan to address problem: Still on Levophed at 6 mcgs per minutes. Continue antibiotics per infectious disease appropriately adjusted to the degree of renal function (8) Cellulitis of right foot Current Visit: Yes Status: Resolved Plan to address problem: Continue antibiotics (9) Fluid overload Current Visit: Yes Status: Acute Plan to address problem: Stat by mouth thiazide diuretic and follow up volume status and electrolytes Subjective Date of service: 07/22/19 Principal diagnosis: Acute respiratory failure Interval history: Patient seen lying in bed. Intubated on ventilator. No Family at bedside. Not following commands. Less agitated today. Objective - Exam Narrative Exam: Young female lying in bed intubated on the ventilator HEENT: NCAT, endotracheal tube intact Neck: Supple, no venous distention CVS: S1S2 RRR with no murmur, rub or gallop Chest: Coarse breath sounds Abdomen: Protuberant, soft, nontender, no organomegaly, bowel sounds are present Extremities: 2+edema and dressing intact Neuro: Agitated, intubated and ventilated - Vital Signs Vital signs: Vital Signs - 12hr 07/22/19 07/22/19 07/22/19 00:30 00:45 01:00 Temperature Pulse Rate 102 H 102 H 99 H Pulse Rate [ From Monitor] Respiratory 27 H 27 H 28 H Rate Blood Pressure 108/47 115/51 111/49 O2 Sat by Pulse 92 93 93 Oximetry 07/22/19 07/22/19 07/22/19 01:15 01:30 01:45 Temperature Pulse Rate 97 H 100 H 96 H Pulse Rate [ From Monitor] Respiratory 27 H 27 H 27 H Rate Blood Pressure 107/47 112/48 105/46 O2 Sat by Pulse 93 93 93 Oximetry 07/22/19 07/22/19 07/22/19 02:00 02:15 02:30 Temperature Pulse Rate 95 H 103 H 103 H Pulse Rate [ From Monitor] Respiratory 26 H 30 H 26 H Rate Blood Pressure 105/51 126/64 112/50 O2 Sat by Pulse 94 90 93 Oximetry 07/22/19 07/22/19 07/22/19 02:45 03:00 03:15 Temperature Pulse Rate 99 H 99 H 98 H Pulse Rate [ From Monitor] Respiratory 26 H 26 H 26 H Rate Blood Pressure 114/49 106/49 107/51 O2 Sat by Pulse 93 93 93 Oximetry 07/22/19 07/22/19 07/22/19 03:30 03:45 04:00 Temperature 100.3 F H Pulse Rate 97 H 95 H 95 H Pulse Rate [ 112 H From Monitor] Respiratory 26 H 26 H 26 H Rate Blood Pressure 113/48 108/47 108/49 O2 Sat by Pulse 93 93 93 Oximetry 07/22/19 07/22/19 07/22/19 04:15 04:30 04:45 Temperature Pulse Rate 105 H 115 H 104 H Pulse Rate [ From Monitor] Respiratory 26 H 24 26 H Rate Blood Pressure 108/49 126/59 119/51 O2 Sat by Pulse 93 92 92 Oximetry 07/22/19 07/22/19 07/22/19 04:51 05:00 05:15 Temperature Pulse Rate 102 H 108 H 104 H Pulse Rate [ From Monitor] Respiratory 26 H 27 H Rate Blood Pressure 119/51 126/52 121/50 O2 Sat by Pulse 92 93 93 Oximetry 07/22/19 07/22/19 07/22/19 05:30 05:45 06:00 Temperature Pulse Rate 114 H 110 H 111 H Pulse Rate [ From Monitor] Respiratory 27 H 26 H 27 H Rate Blood Pressure 126/55 117/53 120/54 O2 Sat by Pulse 91 93 93 Oximetry 07/22/19 07/22/19 07/22/19 06:15 06:30 06:45 Temperature Pulse Rate 110 H 102 H 114 H Pulse Rate [ From Monitor] Respiratory 27 H 26 H 27 H Rate Blood Pressure 114/51 110/49 123/53 O2 Sat by Pulse 93 93 91 Oximetry 07/22/19 07/22/19 07/22/19 07:00 07:15 07:30 Temperature Pulse Rate 111 H 106 H 114 H Pulse Rate [ From Monitor] Respiratory 24 27 H 24 Rate Blood Pressure 113/52 108/50 110/57 O2 Sat by Pulse 93 93 93 Oximetry 07/22/19 07/22/19 07/22/19 07:45 08:00 08:10 Temperature 99.5 F Pulse Rate 100 H 112 H 99 H Pulse Rate [ 97 H From Monitor] Respiratory 26 H 20 Rate Blood Pressure 106/49 103/58 103/58 O2 Sat by Pulse 93 95 94 Oximetry 07/22/19 07/22/19 07/22/19 08:15 08:30 12:00 Temperature 98.6 F Pulse Rate 104 H 96 H 99 H Pulse Rate [ From Monitor] Respiratory 27 H 26 H Rate Blood Pressure 117/55 103/42 129/60 O2 Sat by Pulse 97 94 93 Oximetry - Lab 07/22/19 07:00 07/22/19 07:00 Most recent lab results ABG pH 7.395 pH Units (7.350-7.450) 07/22/19 04:25 ABG pCO2 48.7 mm Hg 07/22/19 04:25 ABG pO2 68.7 mm Hg (80.0-90.0) L 07/22/19 04:25 ABG HCO3 29.1 mmol/L (20.0-26.0) H 07/22/19 04:25 ABG O2 Saturation 94.4 % (95.0-99.0) L 07/22/19 04:25 Calcium 7.5 mg/dL (8.4-10.2) L 07/22/19 07:00 Phosphorus 1.60 mg/dL (2.5-4.5) L 07/21/19 05:00 Magnesium 1.90 mg/dL (1.7-2.3) 07/21/19 05:00 76.6 mg/dL (0.1-20.0) H 07/16/19 14:30 39 mmol/L 07/16/19 14:30 Medications & Allergies - Medications Allergies/Adverse Reactions: Allergies latex Allergy (Verified 06/28/19 17:11) Anaphylaxis tramadol [From Ultram] Allergy (Verified 06/28/19 17:10) Unknown haloperidol [From Haldol] Adverse Reaction (Verified 07/17/19 05:55) Shortness of Breath agitation/combative ketorolac [From Toradol] Adverse Reaction (Verified 06/28/19 17:10) Seizure prochlorperazine [From Compazine] Adverse Reaction (Verified 06/28/19 17:11) Unknown Home Medications: Home Medications Medication Instructions Recorded Confirmed Last Taken Type No Known Home Medications [No 07/16/19 07/16/19 Unknown History Reported Home Medications] Active Medications: Generic Name Dose Route Start Last Admin Trade Name Freq PRN Reason Stop Dose Admin Acetaminophen 650 mg 07/16/19 05:36 Tylenol PO Q4H PRN Pain MILD(1-3)/Fever >100.5/WHALEN Albuterol 2.5 mg 07/16/19 22:48 07/16/19 23:01 Proventil IH 2.5 mg Q4HRT PRN Administration Shortness Of Breath Lipase/Protease/Amylase 1 each 07/18/19 14:[address] 10,500 Unit FEEDTUBE PRN PRN For Clogged Feeding Tube Dextrose 50 ml 07/17/19 03:17 07/17/19 05:30 D50w (25gm) Syringe IV 50 ml PRN PRN Administration Hypoglycemia Enoxaparin Sodium 40 mg 07/20/19 10:00 07/22/19 09:56 Lovenox SUB-Q 40 mg QDAY@1000 KASIE Administration Famotidine 20 mg 07/20/19 10:00 07/22/19 09:56 Pepcid PO 20 mg BID KASIE Administration Fentanyl 50 mcg 07/17/19 03:18 07/17/19 04:53 Sublimaze IV 50 mcg Q10MIN PRN Administration ANALGESIA Hydromorphone HCl 0.25 mg 07/16/19 05:36 07/21/19 01:07 Dilaudid IV 0.25 mg Q3H PRN Administration Pain, Moderate (4-6) Hydrophilic Ointment 1 applic 07/17/19 03:18 Vaseline Lip Therapy TP Q2HR PRN Dry Lips Vasopressin 20 unit/ Sodium 101 mls @ 9.09 mls/hr 07/16/19 20:00 07/20/19 10:56 Chloride IV Infused TITR KASIE Titration Protocol 0.03 UNITS/MIN Midazolam HCl 100 mg/ Sodium 100 mls @ 2 mls/hr 07/17/19 04:00 07/22/19 10:07 Chloride IV 2 mg/hr TITR KASIE 2 mls/hr Titration Protocol 2 MG/HR Fentanyl Citrate 2,000 mcg in 100 mls @ 3.4 mls/hr 07/17/19 04:00 07/22/19 10:23 Fentanyl Drip Premix IV 2 mcg/kg/hr TITR KASIE 6.8 mls/hr Titration Protocol 1 MCG/KG/HR Phenylephrine HCl 100 mg/ 100 mls @ 3 mls/hr 07/17/19 09:30 07/18/19 15:50 Sodium Chloride IV 0 mcg/min TITR KASIE 0 mls/hr Titration Protocol 50 MCG/MIN Dextrose 1,000 mls @ 75 mls/hr 07/20/19 12:00 07/22/19 07:32 D5w IV 75 mls/hr DIRECT KASIE Administration Ceftriaxone Sodium 2 gm in 100 mls @ 200 mls/hr 07/20/19 13:00 07/22/19 09:55 Rocephin/Ns 2 Gm/100 Ml IV 200 mls/hr Q24HR KASIE Administration Protocol Vancomycin HCl 1 gm in 250 mls @ 167.007 mls/hr 07/20/19 22:00 07/22/19 10:36 Vancomycin/Ns 1 Gm/250 Ml IV 167.007 mls/hr Q12HR KASIE Administration Metronidazole 500 mg in 100 mls @ 100 mls/hr 07/21/19 15:00 07/22/19 07:32 Flagyl 500 Mg/100 Ml IV 100 mls/hr Q8HR KASIE Administration Protocol Norepinephrine 4 mg in 250 mls @ 7.5 mls/hr 07/22/19 09:00 07/22/19 09:30 Levophed Drip 4 Mg/Ns 250 Ml IV 6 mcg/min TITR KASIE 22.5 mls/hr Administration Protocol 2 MCG/MIN Midazolam HCl 2 mg 07/17/19 03:18 07/20/19 23:32 Versed IV 2 mg Q10MIN PRN Administration Sedation Multi-Ingred Cream/Lotion/Oil/Oint 1 applic 07/17/19 03:18 Artificial Tears Ophth Oint OU Q4HR PRN Dry Eye(s) Nicotine 14 mg 07/16/19 10:00 07/22/19 09:56 Habitrol TD 14 mg QDAY KASIE Administration Ondansetron HCl 4 mg 07/16/19 05:36 07/16/19 21:16 Zofran IV 4 mg Q8H PRN Administration Nausea And Vomiting Oxycodone/Acetaminophen 1 tab 07/16/19 05:36 07/16/19 12:33 Percocet 5/325 PO 1 tab Q6H PRN Administration Pain, Moderate (4-6) Simple Syrup 15 ml 07/18/19 14:34 Simple Syrup FEEDTUBE PRN PRN Hypoglycemia Simple Syrup 30 ml 07/18/19 14:34 Simple Syrup FEEDTUBE PRN PRN Hypoglycemia Sodium Bicarbonate 325 mg 07/18/19 14:34 Sodium Bicarbonate FEEDTUBE PRN PRN For Clogged Feeding Tube Sodium Chloride 10 ml 07/16/19 10:00 07/22/19 10:36 Sodium Chloride Flush Syringe 10 Ml IV 10 ml BID KASIE Administration Sodium Chloride 10 ml 07/16/19 05:36 Sodium Chloride Flush Syringe 10 Ml IV PRN PRN LINE FLUSH
--- NOTE | 2019-07-22 12:23 | Progress Note ---
Assessment and Plan Assessment and Plan Imp: 1. Acute pyelonephritis with severe Escherichia coli sepsis/septic shock, still on vasopressors 2. ARDS 3. Acute respiratory failure, hypoxia 4. CRISTIAN 5. Lactic acidosis 6. Cellulitis R foot/toe 7. Thrombocytopenia, improving 8. Hypophosphatemia 9. Thickened gallbladder wall rule out acute cholecystitis as cause of fever Rec: 1. ABX per ID; f/u E.coli sens. and modify regimen prn 2. ARDSnet protocol -> drop TV to 400mL, increase RR to 26; leave PEEP at 18 and decrease FiO2 to keep sats 88% or >; repeat ABG after making these changes in 1 hour. Increase TV to 450 mL given high PaCO2 area did wean FiO2 to maintain oxygen saturation 90%. 3. Wean vasopressor as tolerated keep MAP > 65 4. Versed/Fentanyl; soft restraints needed to prevent self-extubation 5. Surgery following; await [facility] eval. 6. DVT and GI PPx; 7. Monitor platelets closely 8. Unlikely be able to do HIDA scan due to poor respiratory status and high risk. Prognosis Guarded Total critical care time 31 minute Subjective Date of service: 07/22/19 Principal diagnosis: Acute respiratory failure Interval history: Remains sedated and intubated on mechanical ventilator. Currently on FiO2 of 6 0%. Good blood gases at current setting. Ran low-grade temperature last night. Has mildly elevated WBC count. Currently being worked up for possible source of sepsis. Ultrasound of gallbladder showed thickened gallbladder wall is high desk and has been ordered but doubtful she'll be able to go down for that test. Objective Vital Signs - 12hr 07/22/19 07/22/19 07/22/19 00:30 00:45 01:00 Temperature Pulse Rate 102 H 102 H 99 H Pulse Rate [ From Monitor] Respiratory 27 H 27 H 28 H Rate Blood Pressure 108/47 115/51 111/49 O2 Sat by Pulse 92 93 93 Oximetry 07/22/19 07/22/19 07/22/19 01:15 01:30 01:45 Temperature Pulse Rate 97 H 100 H 96 H Pulse Rate [ From Monitor] Respiratory 27 H 27 H 27 H Rate Blood Pressure 107/47 112/48 105/46 O2 Sat by Pulse 93 93 93 Oximetry 07/22/19 07/22/19 07/22/19 02:00 02:15 02:30 Temperature Pulse Rate 95 H 103 H 103 H Pulse Rate [ From Monitor] Respiratory 26 H 30 H 26 H Rate Blood Pressure 105/51 126/64 112/50 O2 Sat by Pulse 94 90 93 Oximetry 07/22/19 07/22/19 07/22/19 02:45 03:00 03:15 Temperature Pulse Rate 99 H 99 H 98 H Pulse Rate [ From Monitor] Respiratory 26 H 26 H 26 H Rate Blood Pressure 114/49 106/49 107/51 O2 Sat by Pulse 93 93 93 Oximetry 07/22/19 07/22/19 07/22/19 03:30 03:45 04:00 Temperature 100.3 F H Pulse Rate 97 H 95 H 95 H Pulse Rate [ 112 H From Monitor] Respiratory 26 H 26 H 26 H Rate Blood Pressure 113/48 108/47 108/49 O2 Sat by Pulse 93 93 93 Oximetry 07/22/19 07/22/19 07/22/19 04:15 04:30 04:45 Temperature Pulse Rate 105 H 115 H 104 H Pulse Rate [ From Monitor] Respiratory 26 H 24 26 H Rate Blood Pressure 108/49 126/59 119/51 O2 Sat by Pulse 93 92 92 Oximetry 07/22/19 07/22/19 07/22/19 04:51 05:00 05:15 Temperature Pulse Rate 102 H 108 H 104 H Pulse Rate [ From Monitor] Respiratory 26 H 27 H Rate Blood Pressure 119/51 126/52 121/50 O2 Sat by Pulse 92 93 93 Oximetry 07/22/19 07/22/19 07/22/19 05:30 05:45 06:00 Temperature Pulse Rate 114 H 110 H 111 H Pulse Rate [ From Monitor] Respiratory 27 H 26 H 27 H Rate Blood Pressure 126/55 117/53 120/54 O2 Sat by Pulse 91 93 93 Oximetry 07/22/19 07/22/19 07/22/19 06:15 06:30 06:45 Temperature Pulse Rate 110 H 102 H 114 H Pulse Rate [ From Monitor] Respiratory 27 H 26 H 27 H Rate Blood Pressure 114/51 110/49 123/53 O2 Sat by Pulse 93 93 91 Oximetry 07/22/19 07/22/19 07/22/19 07:00 07:15 07:30 Temperature Pulse Rate 111 H 106 H 114 H Pulse Rate [ From Monitor] Respiratory 24 27 H 24 Rate Blood Pressure 113/52 108/50 110/57 O2 Sat by Pulse 93 93 93 Oximetry 07/22/19 07/22/19 07/22/19 07:45 08:00 08:10 Temperature 99.5 F Pulse Rate 100 H 112 H 99 H Pulse Rate [ 97 H From Monitor] Respiratory 26 H 20 Rate Blood Pressure 106/49 103/58 103/58 O2 Sat by Pulse 93 95 94 Oximetry 07/22/19 07/22/19 07/22/19 08:15 08:30 12:00 Temperature 98.6 F Pulse Rate 104 H 96 H Pulse Rate [ From Monitor] Respiratory 27 H 26 H Rate Blood Pressure 117/55 103/42 O2 Sat by Pulse 97 94 Oximetry 07/22/19 12:22 Temperature Pulse Rate 99 H Pulse Rate [ From Monitor] Respiratory Rate Blood Pressure 129/60 O2 Sat by Pulse 93 Oximetry Constitutional: other (sedated, critically ill on ventilator. Opens eyes to tactile stimule) Eyes: non-icteric ENT: oropharynx moist Neck: supple Effort: other (tachypneic 2/2 vent) Ascultation: Bilateral: other (coarse equal BS bilaterally) Cardiovascular: regular rate and rhythm (no mrg) Gastrointestinal: normoactive bowel sounds, soft, non-tender, non-distended Integumentary: normal Extremities: no cyanosis, no edema, pink and warm Neurologic: other (sedated opens eyes to tactile stimuli) Psychiatric: other (unable to obtain) CBC and BMP: 07/22/19 07:00 07/22/19 07:00 ABG, PT/INR, D-dimer: ABG POC ABG pH 7.239 (7.35-7.45) L 07/18/19 05:51 ABG pH 7.395 pH Units (7.350-7.450) 07/22/19 04:25 POC ABG pCO2 56.9 (35-45) H 07/18/19 05:51 ABG pCO2 48.7 mm Hg 07/22/19 04:25 POC ABG pO2 88 (80-105) 07/18/19 05:51 ABG pO2 68.7 mm Hg (80.0-90.0) L 07/22/19 04:25 POC ABG HCO3 24.3 (22-26 mml/L) 07/18/19 05:51 POC ABG Total CO2 26 (23-27mmol/L) 07/18/19 05:51 POC ABG O2 Sat 95 07/18/19 05:51 ABG O2 Saturation 94.4 % (95.0-99.0) L 07/22/19 04:25 PT/INR, D-dimer PT 16.3 Sec. (12.2-14.9) H 07/16/19 05:47 INR 1.35 (0.87-1.13) H 07/16/19 05:47 Abnormal lab findings: Abnormal Labs 07/16/19 07/16/19 07/16/19 02:01 02:01 02:01 WBC 11.7 H RBC Plt Count 101 L Seg Neuts % (Manual) 92.0 H Lymphocytes % (Manual) 5.0 L Monocytes % (Manual) Eosinophils % (Manual) Seg Neutrophils # Man 10.8 H Lymphocytes # (Manual) 0.6 L Monocytes # (Manual) Eosinophils # (Manual) PT 15.2 H INR 1.23 H POC ABG pH ABG pH POC ABG pCO2 POC ABG pO2 ABG pO2 ABG HCO3 ABG O2 Saturation ABG Base Excess ABG Hemoglobin Oxyhemoglobin Sodium Potassium Chloride Carbon Dioxide 18 L BUN 46 H Creatinine 2.2 H Glucose 116 H POC Glucose Lactic Acid Calcium Phosphorus Magnesium Total Bilirubin AST 63 H ALT 125 H Alkaline Phosphatase Total Protein 6.2 L Albumin 2.8 L Lipase Urine WBC (Auto) U Epithel Cells (Auto) Urine Creatinine 07/16/19 07/16/19 07/16/19 02:16 02:43 04:07 WBC RBC Plt Count Seg Neuts % (Manual) Lymphocytes % (Manual) Monocytes % (Manual) Eosinophils % (Manual) Seg Neutrophils # Man Lymphocytes # (Manual) Monocytes # (Manual) Eosinophils # (Manual) PT INR POC ABG pH ABG pH POC ABG pCO2 POC ABG pO2 ABG pO2 ABG HCO3 ABG O2 Saturation ABG Base Excess ABG Hemoglobin Oxyhemoglobin Sodium Potassium Chloride Carbon Dioxide BUN Creatinine Glucose POC Glucose Lactic Acid 2.10 H* 2.30 H* Calcium Phosphorus Magnesium Total Bilirubin AST ALT Alkaline Phosphatase Total Protein Albumin Lipase 6 L Urine WBC (Auto) U Epithel Cells (Auto) Urine Creatinine 07/16/19 07/16/19 07/16/19 05:47 05:59 14:30 WBC RBC Plt Count Seg Neuts % (Manual) Lymphocytes % (Manual) Monocytes % (Manual) Eosinophils % (Manual) Seg Neutrophils # Man Lymphocytes # (Manual) Monocytes # (Manual) Eosinophils # (Manual) PT 16.3 H INR 1.35 H POC ABG pH ABG pH POC ABG pCO2 POC ABG pO2 ABG pO2 ABG HCO3 ABG O2 Saturation ABG Base Excess ABG Hemoglobin Oxyhemoglobin Sodium Potassium Chloride Carbon Dioxide BUN Creatinine Glucose POC Glucose Lactic Acid Calcium Phosphorus Magnesium Total Bilirubin AST ALT Alkaline Phosphatase Total Protein Albumin Lipase Urine WBC (Auto) > 182.0 H U Epithel Cells (Auto) 21.0 H Urine Creatinine 76.6 H 07/16/19 07/17/19 07/17/19 23:27 00:03 00:03 WBC RBC Plt Count Seg Neuts % (Manual) Lymphocytes % (Manual) Monocytes % (Manual) Eosinophils % (Manual) Seg Neutrophils # Man Lymphocytes # (Manual) Monocytes # (Manual) Eosinophils # (Manual) PT INR POC ABG pH 7.093 L ABG pH POC ABG pCO2 32.8 L POC ABG pO2 66 L ABG pO2 ABG HCO3 ABG O2 Saturation ABG Base Excess ABG Hemoglobin Oxyhemoglobin Sodium 148 H D Potassium Chloride 120.5 H Carbon Dioxide 14 L BUN 35 H Creatinine 1.5 H Glucose 42 L POC Glucose Lactic Acid 2.90 H* Calcium 5.7 L* D Phosphorus Magnesium Total Bilirubin AST ALT Alkaline Phosphatase Total Protein Albumin Lipase Urine WBC (Auto) U Epithel Cells (Auto) Urine Creatinine 07/17/19 07/17/19 07/17/19 03:01 03:29 03:40 WBC 13.2 H RBC Plt Count 116 L Seg Neuts % (Manual) Lymphocytes % (Manual) 9.0 L Monocytes % (Manual) Eosinophils % (Manual) 24.0 H Seg Neutrophils # Man 8.6 H Lymphocytes # (Manual) Monocytes # (Manual) Eosinophils # (Manual) 3.2 H PT INR POC ABG pH 6.981 L ABG pH POC ABG pCO2 55.6 H POC ABG pO2 ABG pO2 ABG HCO3 ABG O2 Saturation ABG Base Excess ABG Hemoglobin Oxyhemoglobin Sodium Potassium Chloride Carbon Dioxide BUN Creatinine Glucose POC Glucose 64 L Lactic Acid Calcium Phosphorus Magnesium Total Bilirubin AST ALT Alkaline Phosphatase Total Protein Albumin Lipase Urine WBC (Auto) U Epithel Cells (Auto) Urine Creatinine 07/17/19 07/17/19 07/17/19 03:40 03:40 04:08 WBC RBC Plt Count Seg Neuts % (Manual) Lymphocytes % (Manual) Monocytes % (Manual) Eosinophils % (Manual) Seg Neutrophils # Man Lymphocytes # (Manual) Monocytes # (Manual) Eosinophils # (Manual) PT INR POC ABG pH 7.056 L ABG pH POC ABG pCO2 POC ABG pO2 63 L ABG pO2 ABG HCO3 ABG O2 Saturation ABG Base Excess ABG Hemoglobin Oxyhemoglobin Sodium 147 H Potassium Chloride 120.2 H Carbon Dioxide 14 L BUN 36 H Creatinine 1.6 H Glucose POC Glucose Lactic Acid 3.20 H* Calcium 6.0 L Phosphorus Magnesium Total Bilirubin AST ALT Alkaline Phosphatase Total Protein Albumin Lipase Urine WBC (Auto) U Epithel Cells (Auto) Urine Creatinine 07/17/19 07/17/19 07/17/19 05:33 05:45 06:51 WBC RBC Plt Count Seg Neuts % (Manual) Lymphocytes % (Manual) Monocytes % (Manual) Eosinophils % (Manual) Seg Neutrophils # Man Lymphocytes # (Manual) Monocytes # (Manual) Eosinophils # (Manual) PT INR POC ABG pH 7.061 L ABG pH POC ABG pCO2 49.0 H POC ABG pO2 ABG pO2 ABG HCO3 ABG O2 Saturation ABG Base Excess ABG Hemoglobin Oxyhemoglobin Sodium Potassium Chloride Carbon Dioxide BUN Creatinine Glucose POC Glucose 64 L 239 H Lactic Acid Calcium Phosphorus Magnesium Total Bilirubin AST ALT Alkaline Phosphatase Total Protein Albumin Lipase Urine WBC (Auto) U Epithel Cells (Auto) Urine Creatinine 07/17/19 07/17/19 07/17/19 10:57 12:56 18:11 WBC RBC Plt Count Seg Neuts % (Manual) Lymphocytes % (Manual) Monocytes % (Manual) Eosinophils % (Manual) Seg Neutrophils # Man Lymphocytes # (Manual) Monocytes # (Manual) Eosinophils # (Manual) PT INR POC ABG pH ABG pH 7.192 L* POC ABG pCO2 POC ABG pO2 ABG pO2 67.5 L ABG HCO3 16.3 L ABG O2 Saturation 92.6 L ABG Base Excess -11.4 L ABG Hemoglobin Oxyhemoglobin 91.1 L Sodium Potassium Chloride Carbon Dioxide BUN Creatinine Glucose POC Glucose 107 H 122 H Lactic Acid Calcium Phosphorus Magnesium Total Bilirubin AST ALT Alkaline Phosphatase Total Protein Albumin Lipase Urine WBC (Auto) U Epithel Cells (Auto) Urine Creatinine 07/17/19 07/17/19 07/18/19 23:34 Unknown 04:00 WBC RBC Plt Count 85 L Seg Neuts % (Manual) 82.0 H Lymphocytes % (Manual) 2.0 L Monocytes % (Manual) 12.0 H Eosinophils % (Manual) Seg Neutrophils # Man Lymphocytes # (Manual) 0.2 L Monocytes # (Manual) 1.1 H Eosinophils # (Manual) PT INR POC ABG pH ABG pH 7.237 L POC ABG pCO2 POC ABG pO2 ABG pO2 142.4 H ABG HCO3 17.0 L ABG O2 Saturation ABG Base Excess -9.8 L ABG Hemoglobin Oxyhemoglobin Sodium Potassium Chloride Carbon Dioxide BUN Creatinine Glucose POC Glucose 136 H Lactic Acid Calcium Phosphorus Magnesium Total Bilirubin AST ALT Alkaline Phosphatase Total Protein Albumin Lipase Urine WBC (Auto) U Epithel Cells (Auto) Urine Creatinine 07/18/19 07/18/19 07/18/19 04:00 05:31 05:51 WBC RBC Plt Count Seg Neuts % (Manual) Lymphocytes % (Manual) Monocytes % (Manual) Eosinophils % (Manual) Seg Neutrophils # Man Lymphocytes # (Manual) Monocytes # (Manual) Eosinophils # (Manual) PT INR POC ABG pH 7.239 L ABG pH POC ABG pCO2 56.9 H POC ABG pO2 ABG pO2 ABG HCO3 ABG O2 Saturation ABG Base Excess ABG Hemoglobin Oxyhemoglobin Sodium 151 H Potassium 3.2 L D Chloride 114.7 H Carbon Dioxide BUN 42 H Creatinine 2.1 H Glucose 130 H POC Glucose 135 H Lactic Acid Calcium 6.0 L Phosphorus Magnesium Total Bilirubin 2.10 H AST 59 H ALT 62 H Alkaline Phosphatase Total Protein 4.8 L D Albumin 2.0 L Lipase Urine WBC (Auto) U Epithel Cells (Auto) Urine Creatinine 07/18/19 07/18/19 07/18/19 12:05 18:30 23:40 WBC RBC Plt Count Seg Neuts % (Manual) Lymphocytes % (Manual) Monocytes % (Manual) Eosinophils % (Manual) Seg Neutrophils # Man Lymphocytes # (Manual) Monocytes # (Manual) Eosinophils # (Manual) PT INR POC ABG pH ABG pH POC ABG pCO2 POC ABG pO2 ABG pO2 ABG HCO3 ABG O2 Saturation ABG Base Excess ABG Hemoglobin Oxyhemoglobin Sodium Potassium Chloride Carbon Dioxide BUN Creatinine Glucose POC Glucose 126 H 131 H 163 H Lactic Acid Calcium Phosphorus Magnesium Total Bilirubin AST ALT Alkaline Phosphatase Total Protein Albumin Lipase Urine WBC (Auto) U Epithel Cells (Auto) Urine Creatinine 07/19/19 07/19/19 07/19/19 03:35 04:57 08:15 WBC 11.1 H RBC 3.64 L Plt Count 71 L Seg Neuts % (Manual) Lymphocytes % (Manual) Monocytes % (Manual) Eosinophils % (Manual) Seg Neutrophils # Man Lymphocytes # (Manual) Monocytes # (Manual) Eosinophils # (Manual) PT INR POC ABG pH ABG pH 7.296 L POC ABG pCO2 POC ABG pO2 ABG pO2 78.7 L ABG HCO3 26.4 H ABG O2 Saturation ABG Base Excess ABG Hemoglobin 11.1 L Oxyhemoglobin 93.3 L Sodium Potassium Chloride Carbon Dioxide BUN Creatinine Glucose POC Glucose 170 H Lactic Acid Calcium Phosphorus Magnesium Total Bilirubin AST ALT Alkaline Phosphatase Total Protein Albumin Lipase Urine WBC (Auto) U Epithel Cells (Auto) Urine Creatinine 07/19/19 07/19/19 07/19/19 08:15 12:34 18:32 WBC RBC Plt Count Seg Neuts % (Manual) Lymphocytes % (Manual) Monocytes % (Manual) Eosinophils % (Manual) Seg Neutrophils # Man Lymphocytes # (Manual) Monocytes # (Manual) Eosinophils # (Manual) PT INR POC ABG pH ABG pH POC ABG pCO2 POC ABG pO2 ABG pO2 ABG HCO3 ABG O2 Saturation ABG Base Excess ABG Hemoglobin Oxyhemoglobin Sodium 146 H Potassium 2.9 L* Chloride 107.9 H Carbon Dioxide BUN 35 H Creatinine 1.5 H Glucose 156 H POC Glucose 160 H 138 H Lactic Acid Calcium 6.6 L Phosphorus Magnesium Total Bilirubin AST ALT Alkaline Phosphatase Total Protein Albumin Lipase Urine WBC (Auto) U Epithel Cells (Auto) Urine Creatinine 07/19/19 07/19/19 07/20/19 23:41 Unknown 04:20 WBC RBC Plt Count Seg Neuts % (Manual) Lymphocytes % (Manual) Monocytes % (Manual) Eosinophils % (Manual) Seg Neutrophils # Man Lymphocytes # (Manual) Monocytes # (Manual) Eosinophils # (Manual) PT INR POC ABG pH ABG pH 7.316 L POC ABG pCO2 POC ABG pO2 ABG pO2 ABG HCO3 27.9 H ABG O2 Saturation ABG Base Excess ABG Hemoglobin Oxyhemoglobin 94.0 L Sodium 149 H Potassium 3.2 L Chloride 112.3 H Carbon Dioxide BUN 34 H Creatinine Glucose 162 H POC Glucose 145 H Lactic Acid Calcium 7.0 L Phosphorus Magnesium 1.50 L Total Bilirubin AST ALT Alkaline Phosphatase Total Protein Albumin Lipase Urine WBC (Auto) U Epithel Cells (Auto) Urine Creatinine 07/20/19 07/20/19 07/20/19 05:25 07:50 07:50 WBC 12.6 H RBC 3.51 L Plt Count 56 L Seg Neuts % (Manual) 89.0 H Lymphocytes % (Manual) 5.0 L Monocytes % (Manual) Eosinophils % (Manual) Seg Neutrophils # Man 11.2 H Lymphocytes # (Manual) 0.6 L Monocytes # (Manual) Eosinophils # (Manual) PT INR POC ABG pH ABG pH POC ABG pCO2 POC ABG pO2 ABG pO2 ABG HCO3 ABG O2 Saturation ABG Base Excess ABG Hemoglobin Oxyhemoglobin Sodium 151 H Potassium 3.4 L Chloride 114.7 H Carbon Dioxide 31 H BUN 30 H Creatinine Glucose 148 H POC Glucose 141 H Lactic Acid Calcium 7.3 L Phosphorus Magnesium Total Bilirubin AST ALT Alkaline Phosphatase Total Protein Albumin Lipase Urine WBC (Auto) U Epithel Cells (Auto) Urine Creatinine 07/20/19 07/20/19 07/20/19 15:47 17:25 23:57 WBC RBC Plt Count Seg Neuts % (Manual) Lymphocytes % (Manual) Monocytes % (Manual) Eosinophils % (Manual) Seg Neutrophils # Man Lymphocytes # (Manual) Monocytes # (Manual) Eosinophils # (Manual) PT INR POC ABG pH ABG pH POC ABG pCO2 POC ABG pO2 ABG pO2 ABG HCO3 ABG O2 Saturation ABG Base Excess ABG Hemoglobin Oxyhemoglobin Sodium Potassium Chloride Carbon Dioxide BUN Creatinine Glucose POC Glucose 160 H 165 H 122 H Lactic Acid Calcium Phosphorus Magnesium Total Bilirubin AST ALT Alkaline Phosphatase Total Protein Albumin Lipase Urine WBC (Auto) U Epithel Cells (Auto) Urine Creatinine 07/21/19 07/21/19 07/21/19 05:00 05:00 05:00 WBC 15.8 H RBC Plt Count 56 L Seg Neuts % (Manual) Lymphocytes % (Manual) Monocytes % (Manual) Eosinophils % (Manual) Seg Neutrophils # Man Lymphocytes # (Manual) Monocytes # (Manual) Eosinophils # (Manual) PT INR POC ABG pH ABG pH POC ABG pCO2 POC ABG pO2 ABG pO2 ABG HCO3 ABG O2 Saturation ABG Base Excess ABG Hemoglobin Oxyhemoglobin Sodium 147 H Potassium 3.5 L Chloride 111.4 H Carbon Dioxide BUN 21 H Creatinine Glucose 107 H POC Glucose Lactic Acid Calcium 7.6 L Phosphorus 1.60 L Magnesium Total Bilirubin 4.80 H AST 48 H ALT Alkaline Phosphatase 131 H Total Protein 4.3 L Albumin 1.5 L Lipase Urine WBC (Auto) U Epithel Cells (Auto) Urine Creatinine 07/21/19 07/21/19 07/21/19 05:34 12:12 18:22 WBC RBC Plt Count Seg Neuts % (Manual) Lymphocytes % (Manual) Monocytes % (Manual) Eosinophils % (Manual) Seg Neutrophils # Man Lymphocytes # (Manual) Monocytes # (Manual) Eosinophils # (Manual) PT INR POC ABG pH ABG pH POC ABG pCO2 POC ABG pO2 ABG pO2 ABG HCO3 ABG O2 Saturation ABG Base Excess ABG Hemoglobin Oxyhemoglobin Sodium Potassium Chloride Carbon Dioxide BUN Creatinine Glucose POC Glucose 119 H 108 H 125 H Lactic Acid Calcium Phosphorus Magnesium Total Bilirubin AST ALT Alkaline Phosphatase Total Protein Albumin Lipase Urine WBC (Auto) U Epithel Cells (Auto) Urine Creatinine 07/21/19 07/21/19 07/22/19 23:27 Unknown 04:25 WBC RBC Plt Count Seg Neuts % (Manual) Lymphocytes % (Manual) Monocytes % (Manual) Eosinophils % (Manual) Seg Neutrophils # Man Lymphocytes # (Manual) Monocytes # (Manual) Eosinophils # (Manual) PT INR POC ABG pH ABG pH POC ABG pCO2 POC ABG pO2 ABG pO2 61.9 L 68.7 L ABG HCO3 28.9 H 29.1 H ABG O2 Saturation 93.5 L 94.4 L ABG Base Excess 3.5 H ABG Hemoglobin 10.8 L 11.5 L Oxyhemoglobin 91.6 L 92.3 L Sodium Potassium Chloride Carbon Dioxide BUN Creatinine Glucose POC Glucose 126 H Lactic Acid Calcium Phosphorus Magnesium Total Bilirubin AST ALT Alkaline Phosphatase Total Protein Albumin Lipase Urine WBC (Auto) U Epithel Cells (Auto) Urine Creatinine 07/22/19 07/22/19 07/22/19 05:25 07:00 07:00 WBC 14.9 H RBC Plt Count 87 L Seg Neuts % (Manual) Lymphocytes % (Manual) Monocytes % (Manual) Eosinophils % (Manual) Seg Neutrophils # Man Lymphocytes # (Manual) Monocytes # (Manual) Eosinophils # (Manual) PT INR POC ABG pH ABG pH POC ABG pCO2 POC ABG pO2 ABG pO2 ABG HCO3 ABG O2 Saturation ABG Base Excess ABG Hemoglobin Oxyhemoglobin Sodium 147 H Potassium 3.3 L Chloride 110.9 H Carbon Dioxide BUN Creatinine 0.6 L Glucose 107 H POC Glucose 107 H Lactic Acid Calcium 7.5 L Phosphorus Magnesium Total Bilirubin AST ALT Alkaline Phosphatase Total Protein Albumin Lipase Urine WBC (Auto) U Epithel Cells (Auto) Urine Creatinine Chest x-ray: image reviewed (ARDS no acute finding AR DD S no acute finding)
--- NOTE | 2019-07-22 15:19 | Progress Note ---
Assessment and Plan /Acute hypoxic respiratory failure; requiring intubation - ARDS Likely from severe sepsis Continue ventilatory support , nebulizers, supportive care Pulmonary critical following, wean as tolerated Requiring high FiO2 to maintain oxygen saturation - down to 55% today / Severe sepsis with Septic shock and organ failure/right foot infection/pyelonephritis/bacreremia Secondary to pyelonephritis and Escherichia coli bacteremia. wean off pressor as tolerated, Continue abs per ID, /E.coli bacteremia, likely source from pyelonephritis There is also concern for cholecystitis- general surgery following -HIDA scan ordered but pending /Transaminitis - Could be from severe sepsis versus possible underlying cholecystitis - Continue to trend LFTs, follow HIDA scan when could be obtained / Acute pyelonephritis To be improving. Decreased leukocytosis. She remains extremely ill. Remains on pressors Overall prognosis remains poor especially with the new diagnosis of ARDS / Cellulitis of right foot, on abx /Acute renal failure due to ATN from severe sepsis Creatinine was 2.2 on admission monitor renal function, Cr now stable / Malnutrition Nutrition corrected by NG tube feedings. Nutrition following /Electrolyte imbalance Hyponatremia -manage with free water with tube feeding Hypokalemia - continue to replete as needed and continue to monitor BMP Hypomagnesemia - repleted, continue to follow The high probability of a clinically significant, sudden or life threatening deterioration of the [pulmonary, renal, infectious, metabolic] system(s) required my full and direct attention, intervention and personal management. The aggregate critical care time was [35] minutes. This time is in addition to time spent performing reported procedures but includes the following: x[] Data Review and interpretation x[] Patient assessment and monitoring of vital signs [x] Documentation [x] Medication orders and management Brief history The patient is a 44-year-old female with bipolar disorder presented to the emergency room with right foot pain, abdominal pain and fevers. She previously presented to the emergency room on 06/28/2019 with right foot with redness and pain following a possible spider bite. She was given a prescription for oral Augmentin and was discharged home. Patient stated that she was compliant with Augmentin and also was soaking her right foot in Epsom salts. About 2-3 days prior to admission, she started developing fevers, nausea as well as worsening abdominal pain. She has presented to the emergency room and was hospitalized. She was noted to be septic,Started on empiric antibiotics. She decompensated on the floor and required intubation and transferred to ICU for further management on 07/17/2019. Also requiring pressors for septic shock, blood culture growing Escherichia coli bacteremia. There is also concern for acute cholecystitis - HIDA scan ordered but pending as patient is not clinically stable to obtain the test. Radiological data: CT abdomen/pelvis: 1. Mild nonspecific left-sided perinephric stranding in this patient with punctate bilateral nonobstructive nephrolithiasis. No asymmetric hydronephrosis or ureteral stone disease. 2. Complex cyst versus mass in the left ovary. Rec ommend nonemergent follow-up pelvic ultrasound. 3. Mild periportal edema could be related to aggressive hydration therapy. 4. Other incidental findings as outlined above on this limited noncontrast exam with mild motion artifact. Of note, there is a 5 mm nodule in the right middle lobe. Please see below recommendations. Abdomen ultrasound: 1. No gallstones, but the gallbladder wall is thickened and edematous. 2. Small bilateral pleural effusions. Hospitalist Physical General appearance: Present: no acute distress, well-nourished, other (intubated on ventilatory support and sedated) - EENT Eyes: Present: PERRL, EOM intact - Neck Neck: Present: supple, normal ROM - Respiratory Respiratory effort: labored Respiratory: bilateral: diminished, rhonchi, negative: rales, wheezing - Cardiovascular Rhythm: regular Heart Sounds: Present: S1 & S2 - Extremities Extremities: no ischemia, abnormal (cellulitis lower extremity) Extremity abnormal: edema - Abdominal General gastrointestinal: soft, non-tender, non-distended, normal bowel sounds - Integumentary Integumentary: Present: clear, warm - Psychiatric Psychiatric: other (intubated on vent) - Neurologic Neurologic: other (intubated on vent) Subjective Date of service: 07/22/19 Principal diagnosis: Acute respiratory failure Interval history: Patient seen and examined Remain intubated with high FiO2 - trended down to 55% FiO2 Remained on pressor support - vasopressin off today Tolerating tube feeding Objective - Constitutional Vitals: Vital Signs - 12hr 07/22/19 07/22/19 07/22/19 03:30 03:45 04:00 Temperature 100.3 F H Pulse Rate 97 H 95 H 95 H Pulse Rate [ 112 H From Monitor] Respiratory 26 H 26 H 26 H Rate Blood Pressure 113/48 108/47 108/49 O2 Sat by Pulse 93 93 93 Oximetry 07/22/19 07/22/19 07/22/19 04:15 04:30 04:45 Temperature Pulse Rate 105 H 115 H 104 H Pulse Rate [ From Monitor] Respiratory 26 H 24 26 H Rate Blood Pressure 108/49 126/59 119/51 O2 Sat by Pulse 93 92 92 Oximetry 07/22/19 07/22/19 07/22/19 04:51 05:00 05:15 Temperature Pulse Rate 102 H 108 H 104 H Pulse Rate [ From Monitor] Respiratory 26 H 27 H Rate Blood Pressure 119/51 126/52 121/50 O2 Sat by Pulse 92 93 93 Oximetry 07/22/19 07/22/19 07/22/19 05:30 05:45 06:00 Temperature Pulse Rate 114 H 110 H 111 H Pulse Rate [ From Monitor] Respiratory 27 H 26 H 27 H Rate Blood Pressure 126/55 117/53 120/54 O2 Sat by Pulse 91 93 93 Oximetry 07/22/19 07/22/19 07/22/19 06:15 06:30 06:45 Temperature Pulse Rate 110 H 102 H 114 H Pulse Rate [ From Monitor] Respiratory 27 H 26 H 27 H Rate Blood Pressure 114/51 110/49 123/53 O2 Sat by Pulse 93 93 91 Oximetry 07/22/19 07/22/19 07/22/19 07:00 07:15 07:30 Temperature Pulse Rate 111 H 106 H 114 H Pulse Rate [ From Monitor] Respiratory 24 27 H 24 Rate Blood Pressure 113/52 108/50 110/57 O2 Sat by Pulse 93 93 93 Oximetry 07/22/19 07/22/19 07/22/19 07:45 08:00 08:10 Temperature 99.5 F Pulse Rate 100 H 112 H 99 H Pulse Rate [ 97 H From Monitor] Respiratory 26 H 20 Rate Blood Pressure 106/49 103/58 103/58 O2 Sat by Pulse 93 95 94 Oximetry 07/22/19 07/22/19 07/22/19 08:15 08:30 08:45 Temperature Pulse Rate 104 H 96 H 94 H Pulse Rate [ From Monitor] Respiratory 27 H 26 H 26 H Rate Blood Pressure 117/55 103/42 102/46 O2 Sat by Pulse 97 94 94 Oximetry 07/22/19 07/22/1907/22/19 09:00 09:15 09:30 Temperature Pulse Rate 93 H 91 H 83 Pulse Rate [ From Monitor] Respiratory 26 H 26 H 26 H Rate Blood Pressure 108/47 94/44 101/44 O2 Sat by Pulse 95 95 95 Oximetry 07/22/19 07/22/19 07/22/19 09:45 10:00 10:15 Temperature Pulse Rate 78 111 H 117 H Pulse Rate [ From Monitor] Respiratory 26 H 29 H 17 Rate Blood Pressure 95/47 111/68 111/68 O2 Sat by Pulse 96 96 85 Oximetry 07/22/19 07/22/19 07/22/19 10:30 10:45 11:00 Temperature Pulse Rate 113 H 104 H 101 H Pulse Rate [ From Monitor] Respiratory 26 H 26 H 26 H Rate Blood Pressure 133/56 118/57 121/54 O2 Sat by Pulse 93 94 94 Oximetry 07/22/19 07/22/19 07/22/19 11:15 11:31 11:45 Temperature Pulse Rate 111 H 110 H 103 H Pulse Rate [ From Monitor] Respiratory 25 H 29 H 19 Rate Blood Pressure 113/56 107/51 108/60 O2 Sat by Pulse 95 94 96 Oximetry 07/22/19 07/22/19 07/22/19 12:00 12:15 12:22 Temperature 98.6 F Pulse Rate 86 107 H 99 H Pulse Rate [ 89 From Monitor] Respiratory 26 H 20 Rate Blood Pressure 111/48 108/60 129/60 O2 Sat by Pulse 95 89 93 Oximetry 07/22/19 07/22/19 07/22/19 12:30 12:45 13:00 Temperature Pulse Rate 94 H 83 81 Pulse Rate [ From Monitor] Respiratory 26 H 26 H 26 H Rate Blood Pressure 112/51 105/52 102/51 O2 Sat by Pulse 92 93 94 Oximetry 07/22/19 07/22/19 07/22/19 13:15 13:30 13:45 Temperature Pulse Rate 84 90 85 Pulse Rate [ From Monitor] Respiratory 26 H 26 H 26 H Rate Blood Pressure 106/53 112/55 106/49 O2 Sat by Pulse 94 94 93 Oximetry 07/22/19 07/22/19 07/22/19 14:00 14:15 14:30 Temperature Pulse Rate 81 78 84 Pulse Rate [ From Monitor] Respiratory 26 H 26 H 26 H Rate Blood Pressure 105/54 99/50 106/55 O2 Sat by Pulse 94 95 93 Oximetry 07/22/19 15:05 Temperature Pulse Rate 84 Pulse Rate [ From Monitor] Respiratory Rate Blood Pressure 106/55 O2 Sat by Pulse 93 Oximetry - Labs CBC & Chem 7: 07/22/19 07:00 07/23/19 04:50 Labs: Abnormal lab results 07/21/19 07/21/19 07/22/19 Range/Units 18:22 23:27 04:25 WBC (4.5-11.0) K/mm3 Plt Count (140-440) K/mm3 ABG pO2 68.7 L (80.0-90.0) mm Hg ABG HCO3 29.1 H (20.0-26.0) mmol/L ABG O2 Saturation 94.4 L (95.0-99.0) % ABG Base Excess 3.5 H (-2.0-3.0) mmol/L ABG Hemoglobin 11.5 L (12.0-16.0) gm/dl Oxyhemoglobin 92.3 L (95.0-99.0) % Sodium (137-145) mmol/L Potassium (3.6-5.0) mmol/L Chloride (98-107) mmol/L Creatinine (0.7-1.2) mg/dL Glucose (65-100) mg/dL POC Glucose 125 H 126 H (70-105) Calcium (8.4-10.2) mg/dL 07/22/19 07/22/19 07/22/19 Range/Units 05:25 07:00 07:00 WBC 14.9 H (4.5-11.0) K/mm3 Plt Count 87 L (140-440) K/mm3 ABG pO2 (80.0-90.0) mm Hg ABG HCO3 (20.0-26.0) mmol/L ABG O2 Saturation (95.0-99.0) % ABG Base Excess (-2.0-3.0) mmol/L ABG Hemoglobin (12.0-16.0) gm/dl Oxyhemoglobin (95.0-99.0) % Sodium 147 H (137-145) mmol/L Potassium 3.3 L (3.6-5.0) mmol/L Chloride 110.9 H (98-107) mmol/L Creatinine 0.6 L (0.7-1.2) mg/dL Glucose 107 H (65-100) mg/dL POC Glucose 107 H (70-105) Calcium 7.5 L (8.4-10.2) mg/dL
[2019-07-23] MEDS: MIDAZOLAM 100 MG in NACL 0.9% 80 ML IV SCH (02:08)
--- NOTE | 2019-07-23 03:30 | XRay Report ---
CHEST 1 VIEW 2:46 AM INDICATION / CLINICAL INFORMATION: Follow-up respiratory failure. COMPARISON: Yesterday. FINDINGS: SUPPORT DEVICES: The positions of the endotracheal tube, feeding tube and right jugular CVL have not changed. HEART / MEDIASTINUM: Unchanged. LUNGS / PLEURA: Moderately severe diffuse bilateral pleuroparenchymal disease has shown mild increase , especially in the right lower hemithorax. No pneumothorax. ADDITIONAL FINDINGS: No significant additional findings. IMPRESSION: Moderately severe diffuse bilateral pleuroparenchymal disease with mild increase on the r ight inferiorly compared to yesterday. Signer Name: Parag Navarrete MD Signed: 07/23/2019 3:26 AM Workstation Name: [id number]
[2019-07-23] MEDS: FREE WATER PO SCH ×5 (04:35→20:00)
[2019-07-23] MEDS: FLAGYL 500 MG/100 ML 500 MG/100 ML BAG IV SCH ×3 (05:27→21:25)
[2019-07-23 05:57] LABS: BUN/Creatinine Ratio 25; Blood Urea Nitrogen 15 mg/dL (7-17); Calcium 7.8 mg/dL (8.4-10.2); Hemolysis Index 8
[2019-07-23 06:13] LABS: ABG Base Excess 2.6 mmol/L (-2.0-3.0); ABG HCO3 28.7 mmol/L (20.0-26.0); ABG Methemoglobin 0.5 % (0.0-1.5); ABG Oxygen Saturation 97.3 % (95.0-99.0); ABG PCO2 51.5 mm Hg; ABG PH 7.364 pH Units (7.350-7.450); ABG PO2 100.4 mm Hg (80.0-90.0)
[2019-07-23] MEDS ORDERED: MAGNESIUM SULFATE 2GM/50ML 2 GM/50 ML BAG IV ONE ×2 (06:48→09:00)
--- NOTE | 2019-07-23 09:16 | Progress Note ---
Assessment and Plan - Patient Problems (1) Cellulitis of right foot Current Visit: Yes Status: Resolved Plan to address problem: Pt in critical condition. This is not related to foot infection. Continue routine wound care. Foot erythema is slightly better today. Await HIDA result. If cholecystitis is suggested, would recommend that IR place drain into gallbladder. Once she recovers, then surgery could be considered in the future. I still feel that her initial high T.bili and mild elevation in transaminases was due to shock liver from her septic shock. Will follow peripherally. Please call with questions. time=10min Subjective Date of service: 07/23/19 Patient Reports: Positive: other (no new issues regarding foot) Objective Vital Signs - 12hr 07/22/19 07/22/19 07/22/19 21:30 21:45 22:00 Temperature Pulse Rate 96 H 91 H 93 H Pulse Rate [ From Monitor] Respiratory 24 25 H 29 H Rate Respiratory 26 H Rate [Back] Blood Pressure 117/55 114/55 112/54 O2 Sat by Pulse 95 95 95 Oximetry 07/22/19 07/22/19 07/22/19 22:15 22:30 22:45 Temperature Pulse Rate 90 101 H 95 H Pulse Rate [ From Monitor] Respiratory 28 H 28 H 18 Rate Respiratory Rate [Back] Blood Pressure 114/48 129/64 110/55 O2 Sat by Pulse 93 95 95 Oximetry 07/22/19 07/22/19 07/22/19 23:00 23:11 23:15 Temperature Pulse Rate 102 H 110 H 106 H Pulse Rate [ From Monitor] Respiratory 38 H 27 H 30 H Rate Respiratory Rate [Back] Blood Pressure 135/76 135/76 140/68 O2 Sat by Pulse 91 90 95 Oximetry 07/22/19 07/22/19 07/23/19 23:30 23:45 00:00 Temperature 99.7 F H Pulse Rate 106 H 101 H 104 H Pulse Rate [ 104 H From Monitor] Respiratory 31 H 22 29 H Rate Respiratory Rate [Back] Blood Pressure 121/65 128/60 O2 Sat by Pulse 95 95 87 Oximetry 07/23/19 07/23/19 07/23/19 00:01 00:15 00:30 Temperature Pulse Rate 111 H 109 H 108 H Pulse Rate [ From Monitor] Respiratory 27 H 27 H 28 H Rate Respiratory Rate [Back] Blood Pressure 135/87 141/66 135/56 O2 Sat by Pulse 91 94 93 Oximetry 07/23/19 07/23/19 07/23/19 00:38 00:45 01:00 Temperature Pulse Rate 106 H 113 H 105 H Pulse Rate [ From Monitor] Respiratory 38 H 28 H Rate Respiratory Rate [Back] Blood Pressure 135/56 135/56 127/58 O2 Sat by Pulse 92 95 90 Oximetry 07/23/19 07/23/19 07/23/19 01:15 01:31 01:45 Temperature Pulse Rate 105 H 113 H 107 H Pulse Rate [ From Monitor] Respiratory 25 H 29 H 25 H Rate Respiratory Rate [Back] Blood Pressure 121/58 147/62 114/55 O2 Sat by Pulse 94 93 92 Oximetry 07/23/19 07/23/19 07/23/19 02:00 02:15 02:31 Temperature Pulse Rate 107 H 118 H 108 H Pulse Rate [ From Monitor] Respiratory 28 H 37 H 29 H Rate Respiratory Rate [Back] Blood Pressure 121/56 140/74 114/75 O2 Sat by Pulse 91 87 87 Oximetry 07/23/19 07/23/19 07/23/19 02:45 03:00 03:15 Temperature Pulse Rate 113 H 114 H 113 H Pulse Rate [ From Monitor] Respiratory 28 H 27 H 28 H Rate Respiratory Rate [Back] Blood Pressure 135/75 135/65 128/62 O2 Sat by Pulse 94 98 97 Oximetry 07/23/19 07/23/19 07/23/19 03:30 03:45 04:00 Temperature 100.1 F H Pulse Rate 113 H 111 H 111 H Pulse Rate [ 113 H From Monitor] Respiratory 23 36 H 30 H Rate Respiratory Rate [Back] Blood Pressure 121/57 116/57 115/52 O2 Sat by Pulse 97 96 95 Oximetry 07/23/19 07/23/19 07/23/19 04:15 04:30 04:45 Temperature Pulse Rate 108 H 109 H 108 H Pulse Rate [ From Monitor] Respiratory 30 H 29 H 28 H Rate Respiratory Rate [Back] Blood Pressure 110/53 108/54 110/52 O2 Sat by Pulse 94 94 96 Oximetry 07/23/19 07/23/19 07/23/19 05:01 05:15 05:30 Temperature Pulse Rate 120 H 110 H 119 H Pulse Rate [ From Monitor] Respiratory 30 H 28 H 33 H Rate Respiratory Rate [Back] Blood Pressure 139/66 106/53 122/66 O2 Sat by Pulse 92 96 97 Oximetry 07/23/19 07/23/19 07/23/19 05:45 05:53 06:00 Temperature Pulse Rate 110 H 107 H 111 H Pulse Rate [ From Monitor] Respiratory 27 H 30 H Rate Respiratory Rate [Back] Blood Pressure 105/54 105/54 110/57 O2 Sat by Pulse 97 97 97 Oximetry 07/23/19 07/23/19 07/23/19 06:15 06:30 06:45 Temperature Pulse Rate 109 H 106 H 106 H Pulse Rate [ From Monitor] Respiratory 31 H 30 H 29 H Rate Respiratory Rate [Back] Blood Pressure 104/53 100/56 109/52 O2 Sat by Pulse 97 97 96 Oximetry 07/23/19 07/23/19 07/23/19 07:00 07:15 07:30 Temperature Pulse Rate 104 H 102 H 102 H Pulse Rate [ From Monitor] Respiratory 30 H 31 H 30 H Rate Respiratory Rate [Back] Blood Pressure 100/51 106/51 105/48 O2 Sat by Pulse 96 96 97 Oximetry 07/23/19 07/23/19 07/23/19 07:45 08:00 08:15 Temperature 99.6 F Pulse Rate 103 H 116 H 111 H Pulse Rate [ 104 H From Monitor] Respiratory 31 H 25 H 30 H Rate Respiratory Rate [Back] Blood Pressure 104/52 103/68 106/55 O2 Sat by Pulse 97 94 98 Oximetry 07/23/19 07/23/19 07/23/19 08:30 08:45 09:00 Temperature Pulse Rate 108 H 105 H 102 H Pulse Rate [ From Monitor] Respiratory 28 H 29 H 31 H Rate Respiratory Rate [Back] Blood Pressure 108/54 109/54 100/51 O2 Sat by Pulse 99 99 99 Oximetry - General physical appearance no distress, no pain - Integumentary other (mild improvement in right foot erythema. Both feet are swollen.) - Labs 07/23/19 10:50 07/23/19 04:50 Diabetes panel 07/23/19 Range/Units 04:50 Sodium 143 (137-145) mmol/L Potassium 3.9 (3.6-5.0) mmol/L Chloride 106.7 (98-107) mmol/L Carbon Dioxide 29 (22-30) mmol/L BUN 15 (7-17) mg/dL Creatinine 0.6 L (0.7-1.2) mg/dL Glucose 102 H (65-100) mg/dL Calcium 7.8 L (8.4-10.2) mg/dL Calcium panel 07/23/19 Range/Units 04:50 Calcium 7.8 L (8.4-10.2) mg/dL Pituitary panel 07/23/19 Range/Units 04:50 Sodium 143 (137-145) mmol/L Potassium 3.9 (3.6-5.0) mmol/L Chloride 106.7 (98-107) mmol/L Carbon Dioxide 29 (22-30) mmol/L BUN 15 (7-17) mg/dL Creatinine 0.6 L (0.7-1.2) mg/dL Glucose 102 H (65-100) mg/dL Calcium 7.8 L (8.4-10.2) mg/dL Adrenal panel 07/23/19 Range/Units 04:50 Sodium 143 (137-145) mmol/L Potassium 3.9 (3.6-5.0) mmol/L Chloride 106.7 (98-107) mmol/L Carbon Dioxide 29 (22-30) mmol/L BUN 15 (7-17) mg/dL Creatinine 0.6 L (0.7-1.2) mg/dL Glucose 102 H (65-100) mg/dL Calcium 7.8 L (8.4-10.2) mg/dL
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
[2019-07-23] MEDS: HABITROL TD SCH (10:02)
[2019-07-23] MEDS: ROCEPHIN/NS 2 GM/100 ML 2 GM/100 ML BAG IV SCH (10:02)
[2019-07-23] MEDS: LOVENOX SUB-Q SCH (10:02)
[2019-07-23] MEDS: SODIUM CHLORIDE FLUSH SYRINGE 10 ML IV SCH ×2 (10:12→21:27)
[2019-07-23] MEDS: VANCOMYCIN/NS 1 GM/250 ML 1 GM/250 ML BAG IV SCH ×2 (10:35→21:27)
[2019-07-23 11:10] LABS: Hematocrit 30.4 % (30.3-42.9); Hemoglobin 10.3 gm/dl (10.1-14.3); Mean Corpuscular HGB Conc 34 % (30-34); Mean Corpuscular Volume 89 fl (79-97); Platelet Count 100 K/mm3 (140-440); Red Blood Count 3.41 M/mm3 (3.65-5.03); Red Cell Distribution Width 14.5 % (13.2-15.2)
--- NOTE | 2019-07-23 11:19 | XRay Report ---
ABDOMEN 1 VIEW(S) INDICATION / CLINICAL INFORMATION: Abdominal distention. COMPARISON: 07/18/2019 FINDINGS: TUBES / LINES: The feeding tube is unchanged terminating in the distal stomach. BOWEL GAS PATTERN: No significant abnormality. FREE AIR / EXTRALUMINAL GAS: None seen. ADDITIONAL FINDINGS: No significant additional findings. IMPRESSION: No significant abnormality. Signer Name: Dameon Mckeon Jr, MD Signed: 07/23/2019 11:15 AM Workstation Name: [id number]
[2019-07-23 11:27] LABS: Albumin 1.4 g/dL (3.9-5); Bilirubin,Direct 2.2 mg/dL (0-0.2)
[2019-07-23] MEDS: HCTZ PO SCH ×2 (11:51)
[2019-07-23] MEDS: PEPCID PO SCH ×3 (11:51→21:27)
[2019-07-23] MEDS ORDERED: LASIX IV ONE ×2 (12:00→16:40)
--- NOTE | 2019-07-23 12:29 | Progress Note ---
Assessment and Plan 44 y/o female with abdominal pain found to have right sided mass vs cysts with acute vs chronic vs acute chronic renal failure, UTI and possible cellulitis of lower ext 1. Respiratory-acute respiratory failure, secondary to volume overload from aggressive volume resuscitation for hypotension on initial arrival. Will give lasix 40mg IV x1 today. Strict I/O. Will continue PEEP at 12 and not wean until FIO2 is at about 40-45%. Wean FiO2 for sats >88 2. CV-will stop D5W. Continue free water 3. GI-given respiratory status, don't feel comfortable going down for HIDA scan with potential desaturations. Will hold off today. Aggressive diuresis and maintain PEEP. If will discuss with surgery and ID. May need to go ahead and ask IR about the potential of percutaneous drain at the bedside. 4. Restart Fent and attempt to wean down Versed 5. Psych-hold of on antipsychotic meds until mental status can be adequately assessed. 6. Overall prognosis is guarded. Will continue to follow CCT 31 minutes. Subjective Date of service: 07/23/19 Principal diagnosis: Acute respiratory failure Interval history: Had some desaturations last night. Increased to FiO2 to 100%. Remains on PEEP of 12. CXR looks like bilateral pulmonary edema. Currently on Versed of 4 as the Fentanyl was turned off for the HIDA scan. Objective Vital Signs - 12hr 07/23/19 07/23/19 07/23/19 00:30 00:38 00:45 Temperature Pulse Rate 108 H 106 H 113 H Pulse Rate [ From Monitor] Respiratory 28 H 38 H Rate Blood Pressure 135/56 135/56 135/56 O2 Sat by Pulse 93 92 95 Oximetry 07/23/19 07/23/19 07/23/19 01:00 01:15 01:31 Temperature Pulse Rate 105 H 105 H 113 H Pulse Rate [ From Monitor] Respiratory 28 H 25 H 29 H Rate Blood Pressure 127/58 121/58 147/62 O2 Sat by Pulse 90 94 93 Oximetry 07/23/19 07/23/19 07/23/19 01:45 02:00 02:15 Temperature Pulse Rate 107 H 107 H 118 H Pulse Rate [ From Monitor] Respiratory 25 H 28 H 37 H Rate Blood Pressure 114/55 121/56 140/74 O2 Sat by Pulse 92 91 87 Oximetry 07/23/19 07/23/19 07/23/19 02:31 02:45 03:00 Temperature Pulse Rate 108 H 113 H 114 H Pulse Rate [ From Monitor] Respiratory 29 H 28 H 27 H Rate Blood Pressure 114/75 135/75 135/65 O2 Sat by Pulse 87 94 98 Oximetry 07/23/19 07/23/19 07/23/19 03:15 03:30 03:45 Temperature Pulse Rate 113 H 113 H 111 H Pulse Rate [ From Monitor] Respiratory 28 H 23 36 H Rate Blood Pressure 128/62 121/57 116/57 O2 Sat by Pulse 97 97 96 Oximetry 07/23/19 07/23/19 07/23/19 04:00 04:15 04:30 Temperature 100.1 F H Pulse Rate 111 H 108 H 109 H Pulse Rate [ 113 H From Monitor] Respiratory 30 H 30 H 29 H Rate Blood Pressure 115/52 110/53 108/54 O2 Sat by Pulse 95 94 94 Oximetry 07/23/19 07/23/19 07/23/19 04:45 05:01 05:15 Temperature Pulse Rate 108 H 120 H 110 H Pulse Rate [ From Monitor] Respiratory 28 H 30 H 28 H Rate Blood Pressure 110/52 139/66 106/53 O2 Sat by Pulse 96 92 96 Oximetry 07/23/19 07/23/19 07/23/19 05:30 05:45 05:53 Temperature Pulse Rate 119 H 110 H 107 H Pulse Rate [ From Monitor] Respiratory 33 H 27 H Rate Blood Pressure 122/66 105/54 105/54 O2 Sat by Pulse 97 97 97 Oximetry 07/23/19 07/23/19 07/23/19 06:00 06:15 06:30 Temperature Pulse Rate 111 H 109 H 106 H Pulse Rate [ From Monitor] Respiratory 30 H 31 H 30 H Rate Blood Pressure 110/57 104/53 100/56 O2 Sat by Pulse 97 97 97 Oximetry 07/23/19 07/23/19 07/23/19 06:45 07:00 07:15 Temperature Pulse Rate 106 H 104 H 102 H Pulse Rate [ From Monitor] Respiratory 29 H 30 H 31 H Rate Blood Pressure 109/52 100/51 106/51 O2 Sat by Pulse 96 96 96 Oximetry 07/23/19 07/23/19 07/23/19 07:30 07:45 08:00 Temperature 99.6 F Pulse Rate 102 H 103 H 116 H Pulse Rate [ 104 H From Monitor] Respiratory 30 H 31 H 25 H Rate Blood Pressure 105/48 104/52 103/68 O2 Sat by Pulse 97 97 94 Oximetry 07/23/19 07/23/19 07/23/19 08:15 08:30 08:45 Temperature Pulse Rate 111 H 108 H 105 H Pulse Rate [ From Monitor] Respiratory 30 H 28 H 29 H Rate Blood Pressure 106/55 108/54 109/54 O2 Sat by Pulse 98 99 99 Oximetry 07/23/19 07/23/19 07/23/19 09:00 09:15 09:30 Temperature Pulse Rate 102 H 104 H 106 H Pulse Rate [ From Monitor] Respiratory 31 H 31 H 32 H Rate Blood Pressure 100/51 105/52 106/56 O2 Sat by Pulse 99 98 97 Oximetry 07/23/19 07/23/19 07/23/19 09:45 10:00 10:15 Temperature Pulse Rate 110 H 105 H 109 H Pulse Rate [ From Monitor] Respiratory 29 H 31 H 23 Rate Blood Pressure 115/63 112/58 120/64 O2 Sat by Pulse 98 99 94 Oximetry 07/23/19 07/23/19 07/23/19 10:30 10:42 10:45 Temperature Pulse Rate 111 H 102 H 103 H Pulse Rate [ From Monitor] Respiratory 24 32 H Rate Blood Pressure 126/60 126/60 126/60 O2 Sat by Pulse 94 97 97 Oximetry 07/23/19 07/23/19 11:01 11:15 Temperature Pulse Rate 122 H 107 H Pulse Rate [ From Monitor] Respiratory 51 H 32 H Rate Blood Pressure 147/75 147/75 O2 Sat by Pulse 87 97 Oximetry Constitutional: other (sedated, critically ill on ventilator. Opens eyes to tactile stimule) Eyes: non-icteric ENT: other (orally intubated and sedated) Neck: supple Effort: other (tachypneic 2/2 vent) Ascultation: Bilateral: rales, other (coarse equal BS bilaterally) Percussion: Bilateral: not dull Cardiovascular: regular rate and rhythm (sinus tach) Gastrointestinal: normoactive bowel sounds, soft, non-tender, non-distended Integumentary: normal Extremities: no cyanosis, no edema, pink and warm Neurologic: other (sedated opens eyes to tactile stimuli) Psychiatric: other (unable to obtain) CBC and BMP: 07/23/19 10:50 07/23/19 04:50 ABG, PT/INR, D-dimer: ABG POC ABG pH 7.239 (7.35-7.45) L 07/18/19 05:51 ABG pH 7.364 pH Units (7.350-7.450) 07/23/19 05:00 POC ABG pCO2 56.9 (35-45) H 07/18/19 05:51 ABG pCO2 51.5 mm Hg 07/23/19 05:00 POC ABG pO2 88 (80-105) 07/18/19 05:51 ABG pO2 100.4 mm Hg (80.0-90.0) H 07/23/19 05:00 POC ABG HCO3 24.3 (22-26 mml/L) 07/18/19 05:51 POC ABG Total CO2 26 (23-27mmol/L) 07/18/19 05:51 POC ABG O2 Sat 95 07/18/19 05:51 ABG O2 Saturation 97.3 % (95.0-99.0) 07/23/19 05:00 PT/INR, D-dimer PT 16.3 Sec. (12.2-14.9) H 07/16/19 05:47 INR 1.35 (0.87-1.13) H 07/16/19 05:47 Abnormal lab findings: Abnormal Labs 07/16/19 07/16/19 07/16/19 02:01 02:01 02:01 WBC 11.7 H RBC Plt Count 101 L Seg Neuts % (Manual) 92.0 H Lymphocytes % (Manual) 5.0 L Monocytes % (Manual) Eosinophils % (Manual) Seg Neutrophils # Man 10.8 H Lymphocytes # (Manual) 0.6 L Monocytes # (Manual) Eosinophils # (Manual) PT 15.2 H INR 1.23 H POC ABG pH ABG pH POC ABG pCO2 POC ABG pO2 ABG pO2 ABG HCO3 ABG O2 Saturation ABG Base Excess ABG Hemoglobin Oxyhemoglobin Sodium Potassium Chloride Carbon Dioxide 18 L BUN 46 H Creatinine 2.2 H Glucose 116 H POC Glucose Lactic Acid Calcium Phosphorus Magnesium Total Bilirubin Direct Bilirubin AST 63 H ALT 125 H Alkaline Phosphatase Total Protein 6.2 L Albumin 2.8 L Lipase Urine WBC (Auto) U Epithel Cells (Auto) Urine Creatinine 07/16/19 07/16/19 07/16/19 02:16 02:43 04:07 WBC RBC Plt Count Seg Neuts % (Manual) Lymphocytes % (Manual) Monocytes % (Manual) Eosinophils % (Manual) Seg Neutrophils # Man Lymphocytes # (Manual) Monocytes # (Manual) Eosinophils # (Manual) PT INR POC ABG pH ABG pH POC ABG pCO2 POC ABG pO2 ABG pO2 ABG HCO3 ABG O2 Saturation ABG Base Excess ABG Hemoglobin Oxyhemoglobin Sodium Potassium Chloride Carbon Dioxide BUN Creatinine Glucose POC Glucose Lactic Acid 2.10 H* 2.30 H* Calcium Phosphorus Magnesium Total Bilirubin Direct Bilirubin AST ALT Alkaline Phosphatase Total Protein Albumin Lipase 6 L Urine WBC (Auto) U Epithel Cells (Auto) Urine Creatinine 07/16/19 07/16/19 07/16/19 05:47 05:59 14:30 WBC RBC Plt Count Seg Neuts % (Manual) Lymphocytes % (Manual) Monocytes % (Manual) Eosinophils % (Manual) Seg Neutrophils # Man Lymphocytes # (Manual) Monocytes # (Manual) Eosinophils # (Manual) PT 16.3 H INR 1.35 H POC ABG pH ABG pH POC ABG pCO2 POC ABG pO2 ABG pO2 ABG HCO3 ABG O2 Saturation ABG Base Excess ABG Hemoglobin Oxyhemoglobin Sodium Potassium Chloride Carbon Dioxide BUN Creatinine Glucose POC Glucose Lactic Acid Calcium Phosphorus Magnesium Total Bilirubin Direct Bilirubin AST ALT Alkaline Phosphatase Total Protein Albumin Lipase Urine WBC (Auto) > 182.0 H U Epithel Cells (Auto) 21.0 H Urine Creatinine 76.6 H 07/16/19 07/17/19 07/17/19 23:27 00:03 00:03 WBC RBC Plt Count Seg Neuts % (Manual) Lymphocytes % (Manual) Monocytes % (Manual) Eosinophils % (Manual) Seg Neutrophils # Man Lymphocytes # (Manual) Monocytes # (Manual) Eosinophils # (Manual) PT INR POC ABG pH 7.093 L ABG pH POC ABG pCO2 32.8 L POC ABG pO2 66 L ABG pO2 ABG HCO3 ABG O2 Saturation ABG Base Excess ABG Hemoglobin Oxyhemoglobin Sodium 148 H D Potassium Chloride 120.5 H Carbon Dioxide 14 L BUN 35 H Creatinine 1.5 H Glucose 42 L POC Glucose Lactic Acid 2.90 H* Calcium 5.7 L* D Phosphorus Magnesium Total Bilirubin Direct Bilirubin AST ALT Alkaline Phosphatase Total Protein Albumin Lipase Urine WBC (Auto) U Epithel Cells (Auto) Urine Creatinine 07/17/19 07/17/19 07/17/19 03:01 03:29 03:40 WBC 13.2 H RBC Plt Count 116 L Seg Neuts % (Manual) Lymphocytes % (Manual) 9.0 L Monocytes % (Manual) Eosinophils % (Manual) 24.0 H Seg Neutrophils # Man 8.6 H Lymphocytes # (Manual) Monocytes # (Manual) Eosinophils # (Manual) 3.2 H PT INR POC ABG pH 6.981 L ABG pH POC ABG pCO2 55.6 H POC ABG pO2 ABG pO2 ABG HCO3 ABG O2 Saturation ABG Base Excess ABG Hemoglobin Oxyhemoglobin Sodium Potassium Chloride Carbon Dioxide BUN Creatinine Glucose POC Glucose 64 L Lactic Acid Calcium Phosphorus Magnesium Total Bilirubin Direct Bilirubin AST ALT Alkaline Phosphatase Total Protein Albumin Lipase Urine WBC (Auto) U Epithel Cells (Auto) Urine Creatinine 07/17/19 07/17/19 07/17/19 03:40 03:40 04:08 WBC RBC Plt Count Seg Neuts % (Manual) Lymphocytes % (Manual) Monocytes % (Manual) Eosinophils % (Manual) Seg Neutrophils # Man Lymphocytes # (Manual) Monocytes # (Manual) Eosinophils # (Manual) PT INR POC ABG pH 7.056 L ABG pH POC ABG pCO2 POC ABG pO2 63 L ABG pO2 ABG HCO3 ABG O2 Saturation ABG Base Excess ABG Hemoglobin Oxyhemoglobin Sodium 147 H Potassium Chloride 120.2 H Carbon Dioxide 14 L BUN 36 H Creatinine 1.6 H Glucose POC Glucose Lactic Acid 3.20 H* Calcium 6.0 L Phosphorus Magnesium Total Bilirubin Direct Bilirubin AST ALT Alkaline Phosphatase Total Protein Albumin Lipase Urine WBC (Auto) U Epithel Cells (Auto) Urine Creatinine 07/17/19 07/17/19 07/17/19 05:33 05:45 06:51 WBC RBC Plt Count Seg Neuts % (Manual) Lymphocytes % (Manual) Monocytes % (Manual) Eosinophils % (Manual) Seg Neutrophils # Man Lymphocytes # (Manual) Monocytes # (Manual) Eosinophils # (Manual) PT INR POC ABG pH 7.061 L ABG pH POC ABG pCO2 49.0 H POC ABG pO2 ABG pO2 ABG HCO3 ABG O2 Saturation ABG Base Excess ABG Hemoglobin Oxyhemoglobin Sodium Potassium Chloride Carbon Dioxide BUN Creatinine Glucose POC Glucose 64 L 239 H Lactic Acid Calcium Phosphorus Magnesium Total Bilirubin Direct Bilirubin AST ALT Alkaline Phosphatase Total Protein Albumin Lipase Urine WBC (Auto) U Epithel Cells (Auto) Urine Creatinine 07/17/19 07/17/19 07/17/19 10:57 12:56 18:11 WBC RBC Plt Count Seg Neuts % (Manual) Lymphocytes % (Manual) Monocytes % (Manual) Eosinophils % (Manual) Seg Neutrophils # Man Lymphocytes # (Manual) Monocytes # (Manual) Eosinophils # (Manual) PT INR POC ABG pH ABG pH 7.192 L* POC ABG pCO2 POC ABG pO2 ABG pO2 67.5 L ABG HCO3 16.3 L ABG O2 Saturation 92.6 L ABG Base Excess -11.4 L ABG Hemoglobin Oxyhemoglobin 91.1 L Sodium Potassium Chloride Carbon Dioxide BUN Creatinine Glucose POC Glucose 107 H 122 H Lactic Acid Calcium Phosphorus Magnesium Total Bilirubin Direct Bilirubin AST ALT Alkaline Phosphatase Total Protein Albumin Lipase Urine WBC (Auto) U Epithel Cells (Auto) Urine Creatinine 07/17/19 07/17/19 07/18/19 23:34 Unknown 04:00 WBC RBC Plt Count 85 L Seg Neuts % (Manual) 82.0 H Lymphocytes % (Manual) 2.0 L Monocytes % (Manual) 12.0 H Eosinophils % (Manual) Seg Neutrophils # Man Lymphocytes # (Manual) 0.2 L Monocytes # (Manual) 1.1 H Eosinophils # (Manual) PT INR POC ABG pH ABG pH 7.237 L POC ABG pCO2 POC ABG pO2 ABG pO2 142.4 H ABG HCO3 17.0 L ABG O2 Saturation ABG Base Excess -9.8 L ABG Hemoglobin Oxyhemoglobin Sodium Potassium Chloride Carbon Dioxide BUN Creatinine Glucose POC Glucose 136 H Lactic Acid Calcium Phosphorus Magnesium Total Bilirubin Direct Bilirubin AST ALT Alkaline Phosphatase Total Protein Albumin Lipase Urine WBC (Auto) U Epithel Cells (Auto) Urine Creatinine 07/18/19 07/18/19 07/18/19 04:00 05:31 05:51 WBC RBC Plt Count Seg Neuts % (Manual) Lymphocytes % (Manual) Monocytes % (Manual) Eosinophils % (Manual) Seg Neutrophils # Man Lymphocytes # (Manual) Monocytes # (Manual) Eosinophils # (Manual) PT INR POC ABG pH 7.239 L ABG pH POC ABG pCO2 56.9 H POC ABG pO2 ABG pO2 ABG HCO3 ABG O2 Saturation ABG Base Excess ABG Hemoglobin Oxyhemoglobin Sodium 151 H Potassium 3.2 L D Chloride 114.7 H Carbon Dioxide BUN 42 H Creatinine 2.1 H Glucose 130 H POC Glucose 135 H Lactic Acid Calcium 6.0 L Phosphorus Magnesium Total Bilirubin 2.10 H Direct Bilirubin AST 59 H ALT 62 H Alkaline Phosphatase Total Protein 4.8 L D Albumin 2.0 L Lipase Urine WBC (Auto) U Epithel Cells (Auto) Urine Creatinine 07/18/19 07/18/19 07/18/19 12:05 18:30 23:40 WBC RBC Plt Count Seg Neuts % (Manual) Lymphocytes % (Manual) Monocytes % (Manual) Eosinophils % (Manual) Seg Neutrophils # Man Lymphocytes # (Manual) Monocytes # (Manual) Eosinophils # (Manual) PT INR POC ABG pH ABG pH POC ABG pCO2 POC ABG pO2 ABG pO2 ABG HCO3 ABG O2 Saturation ABG Base Excess ABG Hemoglobin Oxyhemoglobin Sodium Potassium Chloride Carbon Dioxide BUN Creatinine Glucose POC Glucose 126 H 131 H 163 H Lactic Acid Calcium Phosphorus Magnesium Total Bilirubin Direct Bilirubin AST ALT Alkaline Phosphatase Total Protein Albumin Lipase Urine WBC (Auto) U Epithel Cells (Auto) Urine Creatinine 07/19/19 07/19/19 07/19/19 03:35 04:57 08:15 WBC 11.1 H RBC 3.64 L Plt Count 71 L Seg Neuts % (Manual) Lymphocytes % (Manual) Monocytes % (Manual) Eosinophils % (Manual) Seg Neutrophils # Man Lymphocytes # (Manual) Monocytes # (Manual) Eosinophils # (Manual) PT INR POC ABG pH ABG pH 7.296 L POC ABG pCO2 POC ABG pO2 ABG pO2 78.7 L ABG HCO3 26.4 H ABG O2 Saturation ABG Base Excess ABG Hemoglobin 11.1 L Oxyhemoglobin 93.3 L Sodium Potassium Chloride Carbon Dioxide BUN Creatinine Glucose POC Glucose 170 H Lactic Acid Calcium Phosphorus Magnesium Total Bilirubin Direct Bilirubin AST ALT Alkaline Phosphatase Total Protein Albumin Lipase Urine WBC (Auto) U Epithel Cells (Auto) Urine Creatinine 07/19/19 07/19/19 07/19/19 08:15 12:34 18:32 WBC RBC Plt Count Seg Neuts % (Manual) Lymphocytes % (Manual) Monocytes % (Manual) Eosinophils % (Manual) Seg Neutrophils # Man Lymphocytes # (Manual) Monocytes # (Manual) Eosinophils # (Manual) PT INR POC ABG pH ABG pH POC ABG pCO2 POC ABG pO2 ABG pO2 ABG HCO3 ABG O2 Saturation ABG Base Excess ABG Hemoglobin Oxyhemoglobin Sodium 146 H Potassium 2.9 L* Chloride 107.9 H Carbon Dioxide BUN 35 H Creatinine 1.5 H Glucose 156 H POC Glucose 160 H 138 H Lactic Acid Calcium 6.6 L Phosphorus Magnesium Total Bilirubin Direct Bilirubin AST ALT Alkaline Phosphatase Total Protein Albumin Lipase Urine WBC (Auto) U Epithel Cells (Auto) Urine Creatinine 07/19/19 07/19/19 07/20/19 23:41 Unknown 04:20 WBC RBC Plt Count Seg Neuts % (Manual) Lymphocytes % (Manual) Monocytes % (Manual) Eosinophils % (Manual) Seg Neutrophils # Man Lymphocytes # (Manual) Monocytes # (Manual) Eosinophils # (Manual) PT INR POC ABG pH ABG pH 7.316 L POC ABG pCO2 POC ABG pO2 ABG pO2 ABG HCO3 27.9 H ABG O2 Saturation ABG Base Excess ABG Hemoglobin Oxyhemoglobin 94.0 L Sodium 149 H Potassium 3.2 L Chloride 112.3 H Carbon Dioxide BUN 34 H Creatinine Glucose 162 H POC Glucose 145 H Lactic Acid Calcium 7.0 L Phosphorus Magnesium 1.50 L Total Bilirubin Direct Bilirubin AST ALT Alkaline Phosphatase Total Protein Albumin Lipase Urine WBC (Auto) U Epithel Cells (Auto) Urine Creatinine 07/20/19 07/20/19 07/20/19 05:25 07:50 07:50 WBC 12.6 H RBC 3.51 L Plt Count 56 L Seg Neuts % (Manual) 89.0 H Lymphocytes % (Manual) 5.0 L Monocytes % (Manual) Eosinophils % (Manual) Seg Neutrophils # Man 11.2 H Lymphocytes # (Manual) 0.6 L Monocytes # (Manual) Eosinophils # (Manual) PT INR POC ABG pH ABG pH POC ABG pCO2 POC ABG pO2 ABG pO2 ABG HCO3 ABG O2 Saturation ABG Base Excess ABG Hemoglobin Oxyhemoglobin Sodium 151 H Potassium 3.4 L Chloride 114.7 H Carbon Dioxide 31 H BUN 30 H Creatinine Glucose 148 H POC Glucose 141 H Lactic Acid Calcium 7.3 L Phosphorus Magnesium Total Bilirubin Direct Bilirubin AST ALT Alkaline Phosphatase Total Protein Albumin Lipase Urine WBC (Auto) U Epithel Cells (Auto) Urine Creatinine 07/20/19 07/20/19 07/20/19 15:47 17:25 23:57 WBC RBC Plt Count Seg Neuts % (Manual) Lymphocytes % (Manual) Monocytes % (Manual) Eosinophils % (Manual) Seg Neutrophils # Man Lymphocytes # (Manual) Monocytes # (Manual) Eosinophils # (Manual) PT INR POC ABG pH ABG pH POC ABG pCO2 POC ABG pO2 ABG pO2 ABG HCO3 ABG O2 Saturation ABG Base Excess ABG Hemoglobin Oxyhemoglobin Sodium Potassium Chloride Carbon Dioxide BUN Creatinine Glucose POC Glucose 160 H 165 H 122 H Lactic Acid Calcium Phosphorus Magnesium Total Bilirubin Direct Bilirubin AST ALT Alkaline Phosphatase Total Protein Albumin Lipase Urine WBC (Auto) U Epithel Cells (Auto) Urine Creatinine 07/21/19 07/21/19 07/21/19 05:00 05:00 05:00 WBC 15.8 H RBC Plt Count 56 L Seg Neuts % (Manual) Lymphocytes % (Manual) Monocytes % (Manual) Eosinophils % (Manual) Seg Neutrophils # Man Lymphocytes # (Manual) Monocytes # (Manual) Eosinophils # (Manual) PT INR POC ABG pH ABG pH POC ABG pCO2 POC ABG pO2 ABG pO2 ABG HCO3 ABG O2 Saturation ABG Base Excess ABG Hemoglobin Oxyhemoglobin Sodium 147 H Potassium 3.5 L Chloride 111.4 H Carbon Dioxide BUN 21 H Creatinine Glucose 107 H POC Glucose Lactic Acid Calcium 7.6 L Phosphorus 1.60 L Magnesium Total Bilirubin 4.80 H Direct Bilirubin AST 48 H ALT Alkaline Phosphatase 131 H Total Protein 4.3 L Albumin 1.5 L Lipase Urine WBC (Auto) U Epithel Cells (Auto) Urine Creatinine 07/21/19 07/21/19 07/21/19 05:34 12:12 18:22 WBC RBC Plt Count Seg Neuts % (Manual) Lymphocytes % (Manual) Monocytes % (Manual) Eosinophils % (Manual) Seg Neutrophils # Man Lymphocytes # (Manual) Monocytes # (Manual) Eosinophils # (Manual) PT INR POC ABG pH ABG pH POC ABG pCO2 POC ABG pO2 ABG pO2 ABG HCO3 ABG O2 Saturation ABG Base Excess ABG Hemoglobin Oxyhemoglobin Sodium Potassium Chloride Carbon Dioxide BUN Creatinine Glucose POC Glucose 119 H 108 H 125 H Lactic Acid Calcium Phosphorus Magnesium Total Bilirubin Direct Bilirubin AST ALT Alkaline Phosphatase Total Protein Albumin Lipase Urine WBC (Auto) U Epithel Cells (Auto) Urine Creatinine 07/21/19 07/21/19 07/22/19 23:27 Unknown 04:25 WBC RBC Plt Count Seg Neuts % (Manual) Lymphocytes % (Manual) Monocytes % (Manual) Eosinophils % (Manual) Seg Neutrophils # Man Lymphocytes # (Manual) Monocytes # (Manual) Eosinophils # (Manual) PT INR POC ABG pH ABG pH POC ABG pCO2 POC ABG pO2 ABG pO2 61.9 L 68.7 L ABG HCO3 28.9 H 29.1 H ABG O2 Saturation 93.5 L 94.4 L ABG Base Excess 3.5 H ABG Hemoglobin 10.8 L 11.5 L Oxyhemoglobin 91.6 L 92.3 L Sodium Potassium Chloride Carbon Dioxide BUN Creatinine Glucose POC Glucose 126 H Lactic Acid Calcium Phosphorus Magnesium Total Bilirubin Direct Bilirubin AST ALT Alkaline Phosphatase Total Protein Albumin Lipase Urine WBC (Auto) U Epithel Cells (Auto) Urine Creatinine 07/22/19 07/22/19 07/22/19 05:25 07:00 07:00 WBC 14.9 H RBC Plt Count 87 L Seg Neuts % (Manual) Lymphocytes % (Manual) Monocytes % (Manual) Eosinophils % (Manual) Seg Neutrophils # Man Lymphocytes # (Manual) Monocytes # (Manual) Eosinophils # (Manual) PT INR POC ABG pH ABG pH POC ABG pCO2 POC ABG pO2 ABG pO2 ABG HCO3 ABG O2 Saturation ABG Base Excess ABG Hemoglobin Oxyhemoglobin Sodium 147 H Potassium 3.3 L Chloride 110.9 H Carbon Dioxide BUN Creatinine 0.6 L Glucose 107 H POC Glucose 107 H Lactic Acid Calcium 7.5 L Phosphorus Magnesium Total Bilirubin Direct Bilirubin AST ALT Alkaline Phosphatase Total Protein Albumin Lipase Urine WBC (Auto) U Epithel Cells (Auto) Urine Creatinine 07/22/19 07/22/19 07/23/19 17:41 23:40 04:50 WBC RBC Plt Count Seg Neuts % (Manual) Lymphocytes % (Manual) Monocytes % (Manual) Eosinophils % (Manual) Seg Neutrophils # Man Lymphocytes # (Manual) Monocytes # (Manual) Eosinophils # (Manual) PT INR POC ABG pH ABG pH POC ABG pCO2 POC ABG pO2 ABG pO2 ABG HCO3 ABG O2 Saturation ABG Base Excess ABG Hemoglobin Oxyhemoglobin Sodium Potassium Chloride Carbon Dioxide BUN Creatinine 0.6 L Glucose 102 H POC Glucose 132 H 123 H Lactic Acid Calcium 7.8 L Phosphorus Magnesium 1.50 L Total Bilirubin Direct Bilirubin AST ALT Alkaline Phosphatase Total Protein Albumin Lipase Urine WBC (Auto) U Epithel Cells (Auto) Urine Creatinine 07/23/19 07/23/19 07/23/19 05:00 10:50 10:50 WBC 13.0 H RBC 3.41 L Plt Count 100 L Seg Neuts % (Manual) Lymphocytes % (Manual) Monocytes % (Manual) Eosinophils % (Manual) Seg Neutrophils # Man Lymphocytes # (Manual) Monocytes # (Manual) Eosinophils # (Manual) PT INR POC ABG pH ABG pH POC ABG pCO2 POC ABG pO2 ABG pO2 100.4 H ABG HCO3 28.7 H ABG O2 Saturation ABG Base Excess ABG Hemoglobin 11.0 L Oxyhemoglobin Sodium Potassium Chloride Carbon Dioxide BUN Creatinine Glucose POC Glucose Lactic Acid Calcium Phosphorus Magnesium Total Bilirubin 2.60 H Direct Bilirubin 2.2 H AST 41 H ALT Alkaline Phosphatase Total Protein 4.4 L Albumin 1.4 L Lipase Urine WBC (Auto) U Epithel Cells (Auto) Urine Creatinine 07/23/19 11:49 WBC RBC Plt Count Seg Neuts % (Manual) Lymphocytes % (Manual) Monocytes % (Manual) Eosinophils % (Manual) Seg Neutrophils # Man Lymphocytes # (Manual) Monocytes # (Manual) Eosinophils # (Manual) PT INR POC ABG pH ABG pH POC ABG pCO2 POC ABG pO2 ABG pO2 ABG HCO3 ABG O2 Saturation ABG Base Excess ABG Hemoglobin Oxyhemoglobin Sodium Potassium Chloride Carbon Dioxide BUN Creatinine Glucose POC Glucose 109 H Lactic Acid Calcium Phosphorus Magnesium Total Bilirubin Direct Bilirubin AST ALT Alkaline Phosphatase Total Protein Albumin Lipase Urine WBC (Auto) U Epithel Cells (Auto) Urine Creatinine
--- NOTE | 2019-07-23 12:30 | Event Note ---
Date: 07/23/19 Awaiting results from HIDA scan to determine if Cholecystostomy tube is required. The ultrasound demonstrates gallbladder wall thickening in a non distended gallbladder. Cholecystitis occurs in distended gallbladders, making the pretest probability lower.
[2019-07-23 13:06] LABS: Hepatitis B Surface Antigen Non-Reactive (Negative); Hepatitis C Virus Antibody Reactive (NonReactive)
[2019-07-23] MEDS: TYLENOL PO PRN (16:34)
--- NOTE | 2019-07-23 17:15 | Progress Note ---
Assessment and Plan /Acute hypoxic respiratory failure; requiring intubation - ARDS Likely from severe sepsis Continue ventilatory support , nebulizers, supportive care Pulmonary critical following, wean as tolerated Requiring high FiO2 to maintain oxygen saturation / Severe sepsis with Septic shock and organ failure/right foot infection/pyelonephritis/bacreremia Secondary to pyelonephritis and Escherichia coli bacteremia. weaned off pressor, Continue abs per ID, /E.coli bacteremia, likely source from pyelonephritis There is also concern for cholecystitis- general surgery following -HIDA scan ordered but pending /Transaminitis - Could be from severe sepsis versus possible underlying cholecystitis - Continue to trend LFTs, follow HIDA scan when could be obtained - obtain hepatitis panel / Acute pyelonephritis To be improving. Decreased leukocytosis. She remains extremely ill. Remains on pressors Overall prognosis remains poor especially with the new diagnosis of ARDS / Cellulitis of right foot, on abx /Acute renal failure due to ATN from severe sepsis Creatinine was 2.2 on admission monitor renal function, Cr now stable / Malnutrition Nutrition corrected by NG tube feedings. Nutrition following /Electrolyte imbalance Hyponatremia -manage with free water with tube feeding Hypokalemia - continue to replete as needed and continue to monitor BMP Hypomagnesemia - replete as needed, continue to follow The high probability of a clinically significant, sudden or life threatening deterioration of the [pulmonary, renal, infectious, metabolic] system(s) required my full and direct attention, intervention and personal management. The aggregate critical care time was [35] minutes. This time is in addition to time spent performing reported procedures but includes the following: [X] Data Review and interpretation [X] Patient assessment and monitoring of vital signs [x] Documentation [x] Medication orders and management Brief history The patient is a 44-year-old female with bipolar disorder presented to the emergency room with right foot pain, abdominal pain and fevers. She previously presented to the emergency room on 06/28/2019 with right foot with redness and pain following a possible spider bite. She was given a prescription for oral Augmentin and was discharged home. Patient stated that she was compliant with Augmentin and also was soaking her right foot in Epsom salts. About 2-3 days prior to admission, she started developing fevers, nausea as well as worsening abdominal pain. She has presented to the emergency room and was hospitalized. She was noted to be septic,Started on empiric antibiotics. She decompensated on the floor and required intubation and transferred to ICU for further management on 07/17/2019. Also requiring pressors for septic shock, blood culture growing Escherichia coli bacteremia. There is also concern for acute cholecystitis - HIDA scan ordered but pending as patient is not clinically stable to obtain the test. Radiological data: CT abdomen/pelvis: 1. Mild nonspecific left-sided perinephric stranding in this patient with punctate bilateral nonobstructive nephrolithiasis. No asymmetric hydronephrosis or ureteral stone disease. 2. Complex cyst versus mass in the left ovary. Recommend nonemergent follow-up pelvic ultrasound. 3. Mild periportal edema could be related to aggressive hydration therapy. 4. Other incidental findings as outlined above on this limited noncontrast exam with mild motion artifact. Of note, there is a 5 mm nodule in the right middle lobe. Please see below recommendations. Abdomen ultrasound: 1. No gallstones, but the gallbladder wall is thickened and edematous. 2. Small bilateral pleural effusions. Hospitalist Physical General appearance: Present: no acute distress, well-nourished, other (intubated on ventilatory support and sedated) - EENT Eyes: Present: PERRL, EOM intact - Neck Neck: Present: supple, normal ROM - Respiratory Respiratory effort: labored Respiratory: bilateral: diminished, rhonchi, negative: rales, wheezing - Cardiovascular Rhythm: regular Heart Sounds: Present: S1 & S2 - Extremities Extremities: no ischemia, abnormal (cellulitis lower extremity) Extremity abnormal: edema - Abdominal General gastrointestinal: soft, non-tender, non-distended, normal bowel sounds - Integumentary Integumentary: Present: clear, warm - Psychiatric Psychiatric: other (intubated on vent) - Neurologic Neurologic: other (intubated on vent) Subjective Date of service: 07/23/19 Principal diagnosis: Acute respiratory failure Interval history: Patient seen and examined Remain intubated with high FiO2 - trended uo to 100% FiO2 off pressor support Tolerating tube feeding Objective - Constitutional Vitals: Vital Signs - 12hr 07/23/19 07/23/19 07/23/19 05:30 05:45 05:53 Temperature Pulse Rate 119 H 110 H 107 H Pulse Rate [ From Monitor] Respiratory 33 H 27 H Rate Blood Pressure 122/66 105/54 105/54 O2 Sat by Pulse 97 97 97 Oximetry 07/23/19 07/23/19 07/23/19 06:00 06:15 06:30 Temperature Pulse Rate 111 H 109 H 106 H Pulse Rate [ From Monitor] Respiratory 30 H 31 H 30 H Rate Blood Pressure 110/57 104/53 100/56 O2 Sat by Pulse 97 97 97 Oximetry 07/23/19 07/23/19 07/23/19 06:45 07:00 07:15 Temperature Pulse Rate 106 H 104 H 102 H Pulse Rate [ From Monitor] Respiratory 29 H 30 H 31 H Rate Blood Pressure 109/52 100/51 106/51 O2 Sat by Pulse 96 96 96 Oximetry 07/23/19 07/23/19 07/23/19 07:30 07:45 08:00 Temperature 99.6 F Pulse Rate 102 H 103 H 116 H Pulse Rate [ 104 H From Monitor] Respiratory 30 H 31 H 25 H Rate Blood Pressure 105/48 104/52 103/68 O2 Sat by Pulse 97 97 94 Oximetry 07/23/19 07/23/19 07/23/19 08:15 08:30 08:45 Temperature Pulse Rate 111 H 108 H 105 H Pulse Rate [ From Monitor] Respiratory 30 H 28 H 29 H Rate Blood Pressure 106/55 108/54 109/54 O2 Sat by Pulse 98 99 99 Oximetry 07/23/19 07/23/19 07/23/19 09:00 09:15 09:30 Temperature Pulse Rate 102 H 104 H 106 H Pulse Rate [ From Monitor] Respiratory 31 H 31 H 32 H Rate Blood Pressure 100/51 105/52 106/56 O2 Sat by Pulse 99 98 97 Oximetry 07/23/19 07/23/19 07/23/19 09:45 10:00 10:15 Temperature Pulse Rate 110 H 105 H 109 H Pulse Rate [ From Monitor] Respiratory 29 H 31 H 23 Rate Blood Pressure 115/63 112/58 120/64 O2 Sat by Pulse 98 99 94 Oximetry 07/23/19 07/23/19 07/23/19 10:30 10:42 10:45 Temperature Pulse Rate 111 H 102 H 103 H Pulse Rate [ From Monitor] Respiratory 24 32 H Rate Blood Pressure 126/60 126/60 126/60 O2 Sat by Pulse 94 97 97 Oximetry 07/23/19 07/23/19 07/23/19 11:01 11:15 11:30 Temperature Pulse Rate 122 H 107 H 104 H Pulse Rate [ From Monitor] Respiratory 51 H 32 H 32 H Rate Blood Pressure 147/75 147/75 102/54 O2 Sat by Pulse 87 97 98 Oximetry 07/23/19 07/23/19 07/23/19 11:45 12:00 12:15 Temperature 97.8 F Pulse Rate 103 H 111 H 108 H Pulse Rate [ 103 H From Monitor] Respiratory 33 H 33 H 23 Rate Blood Pressure 102/54 147/77 103/64 O2 Sat by Pulse 97 95 95 Oximetry 07/23/19 07/23/19 07/23/19 12:30 12:45 13:00 Temperature Pulse Rate 111 H 106 H 107 H Pulse Rate [ From Monitor] Respiratory 32 H 31 H 33 H Rate Blood Pressure 115/67 115/67 111/62 O2 Sat by Pulse 97 97 97 Oximetry 07/23/19 07/23/19 07/23/19 13:15 13:30 13:45 Temperature Pulse Rate 110 H 117 H 109 H Pulse Rate [ From Monitor] Respiratory 32 H 31 H 32 H Rate Blood Pressure 111/62 114/66 114/66 O2 Sat by Pulse 95 95 97 Oximetry 07/23/19 07/23/19 07/23/19 14:00 14:15 14:30 Temperature Pulse Rate 110 H 109 H 110 H Pulse Rate [ From Monitor] Respiratory 31 H 32 H 31 H Rate Blood Pressure 111/62 111/62 105/58 O2 Sat by Pulse 98 97 97 Oximetry 07/23/19 07/23/19 07/23/19 14:45 15:00 15:15 Temperature Pulse Rate 115 H 112 H 115 H Pulse Rate [ From Monitor] Respiratory 40 H 31 H 39 H Rate Blood Pressure 105/58 105/63 105/63 O2 Sat by Pulse 96 96 97 Oximetry 07/23/19 15:45 Temperature Pulse Rate 109 H Pulse Rate [ From Monitor] Respiratory Rate Blood Pressure 147/74 O2 Sat by Pulse 95 Oximetry - Labs CBC & Chem 7: 07/23/19 10:50 07/23/19 04:50 Labs: Abnormal lab results 07/22/19 07/22/19 07/23/19 Range/Units 17:41 23:40 04:50 WBC (4.5-11.0) K/mm3 RBC (3.65-5.03) M/mm3 Plt Count (140-440) K/mm3 ABG pO2 (80.0-90.0) mm Hg ABG HCO3 (20.0-26.0) mmol/L ABG Hemoglobin (12.0-16.0) gm/dl Creatinine 0.6 L (0.7-1.2) mg/dL Glucose 102 H (65-100) mg/dL POC Glucose 132 H 123 H (70-105) Calcium 7.8 L (8.4-10.2) mg/dL Magnesium 1.50 L (1.7-2.3) mg/dL Total Bilirubin (0.1-1.2) mg/dL Direct Bilirubin (0-0.2) mg/dL AST (5-40) units/L Total Protein (6.3-8.2) g/dL Albumin (3.9-5) g/dL Hepatitis C Antibody (NonReactive) 07/23/19 07/23/19 07/23/19 Range/Units 05:00 10:50 10:50 WBC 13.0 H (4.5-11.0) K/mm3 RBC 3.41 L (3.65-5.03) M/mm3 Plt Count 100 L (140-440) K/mm3 ABG pO2 100.4 H (80.0-90.0) mm Hg ABG HCO3 28.7 H (20.0-26.0) mmol/L ABG Hemoglobin 11.0 L (12.0-16.0) gm/dl Creatinine (0.7-1.2) mg/dL Glucose (65-100) mg/dL POC Glucose (70-105) Calcium (8.4-10.2) mg/dL Magnesium (1.7-2.3) mg/dL Total Bilirubin 2.60 H (0.1-1.2) mg/dL Direct Bilirubin 2.2 H (0-0.2) mg/dL AST 41 H (5-40) units/L Total Protein 4.4 L (6.3-8.2) g/dL Albumin 1.4 L (3.9-5) g/dL Hepatitis C Antibody (NonReactive) 07/23/19 07/23/19 Range/Units 11:49 11:49 WBC (4.5-11.0) K/mm3 RBC (3.65-5.03) M/mm3 Plt Count (140-440) K/mm3 ABG pO2 (80.0-90.0) mm Hg ABG HCO3 (20.0-26.0) mmol/L ABG Hemoglobin (12.0-16.0) gm/dl Creatinine (0.7-1.2) mg/dL Glucose (65-100) mg/dL POC Glucose 109 H (70-105) Calcium (8.4-10.2) mg/dL Magnesium (1.7-2.3) mg/dL Total Bilirubin (0.1-1.2) mg/dL Direct Bilirubin (0-0.2) mg/dL AST (5-40) units/L Total Protein (6.3-8.2) g/dL Albumin (3.9-5) g/dL Hepatitis C Antibody Reactive A (NonReactive)
--- NOTE | 2019-07-23 18:27 | Progress Note ---
Assessment and Plan - Patient Problems (1) Acute kidney injury (CRISTIAN) with acute tubular necrosis (ATN) Current Visit: Yes Status: Acute Plan to address problem: Kidney function has improved. Follow-up electrolytes and renal function (2) Pyelonephritis, acute Current Visit: Yes Status: Acute Plan to address problem: Continue antibiotics. (3) Hypernatremia Current Visit: Yes Status: Acute Plan to address problem: Hypernatremia: Sodium is now improving. Continue free water replacement orally. I agree with stopping D5W given the edema (4) Hypokalemia Current Visit: Yes Status: Acute Plan to address problem: Supplement potassium and follow-up level. (5) Acute respiratory failure Current Visit: Yes Status: Acute Plan to address problem: Continue ventilator management (6) Elevated LFTs Current Visit: Yes Status: Acute Plan to address problem: Ischemic Hepatitis. Follow-up liver function tests (7) Septic shock Current Visit: Yes Status: Acute Plan to address problem: Still on Levophed at 6 mcgs per minutes. Concerned about cholecystitis. Pending HIDA scan. Continue antibiotics per infectious disease appropriately adjusted to the degree of renal function (8) Cellulitis of right foot Current Visit: Yes Status: Resolved Plan to address problem: Continue antibiotics (9) Fluid overload Current Visit: Yes Status: Acute Plan to address problem: Stat by mouth thiazide diuretic and follow up volume status and electrolytes Subjective Date of service: 07/23/19 Principal diagnosis: Acute respiratory failure Interval history: Patient seen lying in bed. Intubated on ventilator. No Family at bedside. Not following commands. Still on Levophed 6 mcg/ minute Objective - Exam Narrative Exam: Young female lying in bed intubated on the ventilator before meals 450/26/100% HEENT: NCAT, endotracheal tube intact Neck: Supple, no venous distention CVS: S1S2 RRR with no murmur, rub or gallop Chest: Coarse breath sounds Abdomen: Protuberant, soft, nontender, no organomegaly, bowel sounds are present Extremities: 2+edema and dressing intact Neuro: Agitated, intubated on ventilator - Vital Signs Vital signs: Vital Signs - 12hr 07/23/19 07/23/19 07/23/19 06:30 06:45 07:00 Temperature Pulse Rate 106 H 106 H 104 H Pulse Rate [ From Monitor] Respiratory 30 H 29 H 30 H Rate Blood Pressure 100/56 109/52 100/51 O2 Sat by Pulse 97 96 96 Oximetry 07/23/19 07/23/19 07/23/19 07:15 07:30 07:45 Temperature Pulse Rate 102 H 102 H 103 H Pulse Rate [ From Monitor] Respiratory 31 H 30 H 31 H Rate Blood Pressure 106/51 105/48 104/52 O2 Sat by Pulse 96 97 97 Oximetry 07/23/19 07/23/19 07/23/19 08:00 08:15 08:30 Temperature 99.6 F Pulse Rate 116 H 111 H 108 H Pulse Rate [ 104 H From Monitor] Respiratory 25 H 30 H 28 H Rate Blood Pressure 103/68 106/55 108/54 O2 Sat by Pulse 94 98 99 Oximetry 07/23/19 07/23/19 07/23/19 08:45 09:00 09:15 Temperature Pulse Rate 105 H 102 H 104 H Pulse Rate [ From Monitor] Respiratory 29 H 31 H 31 H Rate Blood Pressure 109/54 100/51 105/52 O2 Sat by Pulse 99 99 98 Oximetry 07/23/19 07/23/19 07/23/19 09:30 09:45 10:00 Temperature Pulse Rate 106 H 110 H 105 H Pulse Rate [ From Monitor] Respiratory 32 H 29 H 31 H Rate Blood Pressure 106/56 115/63 112/58 O2 Sat by Pulse 97 98 99 Oximetry 07/23/19 07/23/19 07/23/19 10:15 10:30 10:42 Temperature Pulse Rate 109 H 111 H 102 H Pulse Rate [ From Monitor] Respiratory 23 24 Rate Blood Pressure 120/64 126/60 126/60 O2 Sat by Pulse 94 94 97 Oximetry 07/23/19 07/23/19 07/23/19 10:45 11:01 11:15 Temperature Pulse Rate 103 H 122 H 107 H Pulse Rate [ From Monitor] Respiratory 32 H 51 H 32 H Rate Blood Pressure 126/60 147/75 147/75 O2 Sat by Pulse 97 87 97 Oximetry 07/23/19 07/23/19 07/23/19 11:30 11:45 12:00 Temperature 97.8 F Pulse Rate 104 H 103 H 111 H Pulse Rate [ 103 H From Monitor] Respiratory 32 H 33 H 33 H Rate Blood Pressure 102/54 102/54 147/77 O2 Sat by Pulse 98 97 95 Oximetry 0807/23/19 07/23/19 12:15 12:30 12:45 Temperature Pulse Rate 108 H 111 H 106 H Pulse Rate [ From Monitor] Respiratory 23 32 H 31 H Rate Blood Pressure 103/64 115/67 115/67 O2 Sat by Pulse 95 97 97 Oximetry 07/23/19 07/23/19 07/23/19 13:00 13:15 13:30 Temperature Pulse Rate 107 H 110 H 117 H Pulse Rate [ From Monitor] Respiratory 33 H 32 H 31 H Rate Blood Pressure 111/62 111/62 114/66 O2 Sat by Pulse 97 95 95 Oximetry 07/23/19 07/23/19 07/23/19 13:45 14:00 14:15 Temperature Pulse Rate 109 H 110 H 109 H Pulse Rate [ From Monitor] Respiratory 32 H 31 H 32 H Rate Blood Pressure 114/66 111/62 111/62 O2 Sat by Pulse 97 98 97 Oximetry 07/23/19 07/23/19 07/23/19 14:30 14:45 15:00 Temperature Pulse Rate 110 H 115 H 112 H Pulse Rate [ From Monitor] Respiratory 31 H 40 H 31 H Rate Blood Pressure 105/58 105/58 105/63 O2 Sat by Pulse 97 96 96 Oximetry 07/23/19 07/23/19 07/23/19 15:15 15:31 15:45 Temperature Pulse Rate 115 H 120 H 111 H Pulse Rate [ From Monitor] Respiratory 39 H 45 H 32 H Rate Blood Pressure 105/63 147/74 147/74 O2 Sat by Pulse 97 94 95 Oximetry 07/23/19 07/23/19 07/23/19 16:00 16:01 16:15 Temperature 100.6 F H Pulse Rate 114 H 107 H Pulse Rate [ 104 H From Monitor] Respiratory 30 H 34 H 31 H Rate Blood Pressure 98/55 98/55 O2 Sat by Pulse 93 92 92 Oximetry 07/23/19 07/23/19 07/23/19 16:30 16:45 17:00 Temperature Pulse Rate 107 H 104 H 100 H Pulse Rate [ From Monitor] Respiratory 30 H 31 H 30 H Rate Blood Pressure 106/59 106/59 103/57 O2 Sat by Pulse 93 95 96 Oximetry 07/23/19 17:15 Temperature Pulse Rate 103 H Pulse Rate [ From Monitor] Respiratory 31 H Rate Blood Pressure 103/57 O2 Sat by Pulse 94 Oximetry - Lab 07/23/19 10:50 07/23/19 04:50 Most recent lab results ABG pH 7.364 pH Units (7.350-7.450) 07/23/19 05:00 ABG pCO2 51.5 mm Hg 07/23/19 05:00 ABG pO2 100.4 mm Hg (80.0-90.0) H 07/23/19 05:00 ABG HCO3 28.7 mmol/L (20.0-26.0) H 07/23/19 05:00 ABG O2 Saturation 97.3 % (95.0-99.0) 07/23/19 05:00 Calcium 7.8 mg/dL (8.4-10.2) L 07/23/19 04:50 Phosphorus 1.60 mg/dL (2.5-4.5) L 07/21/19 05:00 Magnesium 1.50 mg/dL (1.7-2.3) L 07/23/19 04:50 76.6 mg/dL (0.1-20.0) H 07/16/19 14:30 39 mmol/L 07/16/19 14:30 Medications & Allergies - Medications Allergies/Adverse Reactions: Allergies latex Allergy (Verified 06/28/19 17:11) Anaphylaxis tramadol [From Ultram] Allergy (Verified 06/28/19 17:10) Unknown haloperidol [From Haldol] Adverse Reaction (Verified 07/17/19 05:55) Shortness of Breath agitation/combative ketorolac [From Toradol] Adverse Reaction (Verified 06/28/19 17:10) Seizure prochlorperazine [From Compazine] Adverse Reaction (Verified 06/28/19 17:11) Unknown Home Medications: Home Medications Medication Instructions Recorded Confirmed Last Taken Type No Known Home Medications [No 07/16/19 07/16/19 Unknown History Reported Home Medications] Active Medications: Generic Name Dose Route Start Last Admin Trade Name Freq PRN Reason Stop Dose Admin Acetaminophen 650 mg 07/16/19 05:36 07/23/19 16:34 Tylenol PO 650 mg Q4H PRN Administration Pain MILD(1-3)/Fever >100.5/WHALEN Albuterol 2.5 mg 07/16/19 22:48 07/16/19 23:01 Proventil IH 2.5 mg Q4HRT PRN Administration Shortness Of Breath Lipase/Protease/Amylase 1 each 07/18/19 14:34 Pancreaze 10,500 Unit FEEDTUBE PRN PRN For Clogged Feeding Tube Dextrose 50 ml 07/17/19 03:17 07/17/19 05:30 D50w (25gm) Syringe IV 50 ml PRN PRN Administration Hypoglycemia Enoxaparin Sodium 40 mg 07/20/19 10:00 07/23/19 10:02 Lovenox SUB-Q 40 mg QDAY@1000 KASIE Administration Famotidine 20 mg 07/20/19 10:00 07/23/19 11:51 Pepcid PO 20 mg BID KASIE Administration Fentanyl 50 mcg 07/17/19 03:18 07/17/19 04:53 Sublimaze IV 50 mcg Q10MIN PRN Administration ANALGESIA Hydrochlorothiazide 25 mg 07/23/19 10:00 07/23/19 11:51 Hctz PO 25 mg QDAY KASIE Administration Hydromorphone HCl 0.25 mg 07/16/19 05:36 07/21/19 01:07 Dilaudid IV 0.25 mg Q3H PRN Administration Pain, Moderate (4-6) Hydrophilic Ointment 1 applic 07/17/19 03:18 Vaseline Lip Therapy TP Q2HR PRN Dry Lips Vasopressin 20 unit/ Sodium 101 mls @ 9.09 mls/hr 07/16/19 20:00 07/20/19 10:56 Chloride IV Infused TITR KASIE Titration Protocol 0.03 UNITS/MIN Midazolam HCl 100 mg/ Sodium 100 mls @ 2 mls/hr 07/17/19 04:00 07/23/19 15:34 Chloride IV 1 mg/hr TITR KASIE 1 mls/hr Titration Protocol 2 MG/HR Fentanyl Citrate 2,000 mcg in 100 mls @ 3.4 mls/hr 07/17/19 04:00 07/23/19 11:57 Fentanyl Drip Premix IV 1 mcg/kg/hr TITR KASIE 3.4 mls/hr Titration Protocol 1 MCG/KG/HR Phenylephrine HCl 100 mg/ 100 mls @ 3 mls/hr 07/17/19 09:30 07/18/19 15:50 Sodium Chloride IV 0 mcg/min TITR KASIE 0 mls/hr Titration Protocol 50 MCG/MIN Ceftriaxone Sodium 2 gm in 100 mls @ 200 mls/hr 07/20/19 13:00 07/23/19 10:02 Rocephin/Ns 2 Gm/100 Ml IV 200 mls/hr Q24HR KASIE Administration Protocol Vancomycin HCl 1 gm in 250 mls @ 167.007 mls/hr 07/20/19 22:00 07/23/19 10:35 Vancomycin/Ns 1 Gm/250 Ml IV 167.007 mls/hr Q12HR KASIE Administration Metronidazole 500 mg in 100 mls @ 100 mls/hr 07/21/19 15:00 07/23/19 13:27 Flagyl 500 Mg/100 Ml IV 100 mls/hr Q8HR KASIE Administration Protocol Norepinephrine 4 mg in 250 mls @ 7.5 mls/hr 07/22/19 09:00 07/23/19 02:30 Levophed Drip 4 Mg/Ns 250 Ml IV 0 mcg/min TITR KASIE 0 mls/hr Titration Protocol 2 MCG/MIN Midazolam HCl 2 mg 07/17/19 03:18 07/20/19 23:32 Versed IV 2 mg Q10MIN PRN Administration Sedation Multi-Ingred Cream/Lotion/Oil/Oint 1 applic 07/17/19 03:18 Artificial Tears Ophth Oint OU Q4HR PRN Dry Eye(s) Nicotine 14 mg 07/16/19 10:00 07/23/19 10:02 Habitrol TD 14 mg QDAY KASIE Administration Ondansetron HCl 4 mg 07/16/19 05:36 07/16/19 21:16 Zofran IV 4 mg Q8H PRN Administration Nausea And Vomiting Oxycodone/Acetaminophen 1 tab 07/16/19 05:36 07/16/19 12:33 Percocet 5/325 PO 1 tab Q6H PRN Administration Pain, Moderate (4-6) Simple Syrup 15 ml 07/18/19 14:34 Simple Syrup FEEDTUBE PRN PRN Hypoglycemia Simple Syrup 30 ml 07/18/19 14:34 Simple Syrup FEEDTUBE PRN PRN Hypoglycemia Sodium Bicarbonate 325 mg 07/18/19 14:34 Sodium Bicarbonate FEEDTUBE PRN PRN For Clogged Feeding Tube Sodium Chloride 10 ml 07/16/19 10:00 07/23/19 10:12 Sodium Chloride Flush Syringe 10 Ml IV 10 ml BID KASIE Administration Sodium Chloride 10 ml 07/16/19 05:36 Sodium Chloride Flush Syringe 10 Ml IV PRN PRN LINE FLUSH
--- NOTE | 2019-07-24 01:27 | XRay Report ---
CHEST 1 VIEW 1:04 AM INDICATION / CLINICAL INFORMATION: Follow-up respiratory failure. COMPARISON: Yesterday. FINDINGS: SUPPORT DEVICES: The positions of the endotracheal tube, feeding tube and right jugular CVL have not changed. HEART / MEDIASTINUM: Unchanged. LUNGS / PLEURA: There is moderately severe diffuse bilateral pleuroparenchymal disease. Disease has i ncreased in the left lower lung but improved in the right mid to lower lung. No pneumothorax. ADDITIONAL FINDINGS: No significant additional findings. IMPRESSION: Changing appearance of moderately severe diffuse bilateral parenchymal disease, with impr ovement on the right and worsening on the left, compared to yesterday. Signer Name: Parag Navarrete MD Signed: 07/24/2019 1:22 AM Workstation Name: [id number]
[2019-07-24] MEDS: TYLENOL PO PRN (03:12)
[2019-07-24] MEDS: FREE WATER PO SCH ×6 (04:00→20:00)
[2019-07-24 04:03] LABS: Hematocrit 29.9 % (30.3-42.9); Hemoglobin 10.2 gm/dl (10.1-14.3); Mean Corpuscular HGB Conc 34 % (30-34); Mean Corpuscular Volume 88 fl (79-97); Platelet Count 116 K/mm3 (140-440); Red Blood Count 3.39 M/mm3 (3.65-5.03); Red Cell Distribution Width 14.3 % (13.2-15.2)
[2019-07-24 04:20] LABS: Basophils # (Auto) 0.1 K/mm3 (0.0-0.1); Basophils % (Auto) 0.8 % (0.0-1.8); Eosinophils # (Auto) 0.2 K/mm3 (0.0-0.4); Eosinophils % (Auto) 1.6 % (0.0-4.3); Lymphocytes # (Auto) 2.1 K/mm3 (1.2-5.4); Lymphocytes % (Auto) 15.3 % (13.4-35.0); Monocytes # (Auto) 0.6 K/mm3 (0.0-0.8); Monocytes % (Auto) 4.6 % (0.0-7.3)
[2019-07-24 04:21] LABS: BUN/Creatinine Ratio 25; Blood Urea Nitrogen 15 mg/dL (7-17); Calcium 7.7 mg/dL (8.4-10.2); Hemolysis Index 6
[2019-07-24 05:30] LABS: ABG Base Excess 7.4 mmol/L (-2.0-3.0); ABG HCO3 32.1 mmol/L (20.0-26.0); ABG Methemoglobin 0.6 % (0.0-1.5); ABG Oxygen Saturation 98.7 % (95.0-99.0); ABG PCO2 46.5 mm Hg; ABG PH 7.457 pH Units (7.350-7.450); ABG PO2 138.3 mm Hg (80.0-90.0)
[2019-07-24] MEDS: FLAGYL 500 MG/100 ML 500 MG/100 ML BAG IV SCH ×3 (07:30→22:02)
[2019-07-24] MEDS ORDERED: LASIX IV NR (09:30)
[2019-07-24] MEDS: ROCEPHIN/NS 2 GM/100 ML 2 GM/100 ML BAG IV SCH (10:26)
[2019-07-24] MEDS: LOVENOX SUB-Q SCH (10:27)
[2019-07-24] MEDS: VANCOMYCIN/NS 1 GM/250 ML 1 GM/250 ML BAG IV SCH ×2 (10:27→22:04)
[2019-07-24] MEDS: HCTZ PO SCH (10:27)
[2019-07-24] MEDS: HABITROL TD SCH (10:27)
[2019-07-24] MEDS: PEPCID PO SCH ×2 (10:28→22:02)
[2019-07-24] MEDS: BUMEX IV SCH (10:28)
[2019-07-24] MEDS: SODIUM CHLORIDE FLUSH SYRINGE 10 ML IV SCH ×2 (10:29→22:00)
--- NOTE | 2019-07-24 11:45 | Progress Note ---
Assessment and Plan 44 y/o female with abdominal pain found to have right sided mass vs cysts with acute vs chronic vs acute chronic renal failure, UTI and possible cellulitis of lower ext 1. Respiratory-acute respiratory failure, secondary to volume overload from aggressive volume resuscitation for hypotension on initial arrival. Will continue PEEP at 12 and not wean until FIO2 is at about 40-45%. Wean FiO2 for sats >88. Renal has now ordered scheduled bumex therapy. Please do not wean PEEP until FiO2 is in the 40-45% range. 2. CV-will stop D5W. Continue free water 3. GI-given respiratory status, don't feel comfortable going down for HIDA scan with potential desaturations. Will hold off today. Aggressive diuresis and maintain PEEP. If will discuss with surgery and ID. May need to go ahead and ask IR about the potential of percutaneous drain at the bedside. Spoke with ID and they would like a CT of abdomen pelvis with contrast. Need to ask RT what's the highest PEEP on the portable ventilators. IR does not want to place empiric drain. 4. Restart Fent and attempt to wean down Versed, both now down to 1 each. Needs a sedation vacation daily. 5. Psych-hold of on antipsychotic meds until mental status can be adequately assessed. 6. Overall prognosis is guarded. Will continue to follow CCT 31 minutes. Subjective Date of service: 07/24/19 Principal diagnosis: Acute respiratory failure Interval history: No acute events. Down to 55% FiO2 currently. Objective Vital Signs - 12hr 07/23/19 07/24/19 07/24/19 23:45 00:00 00:15 Temperature Pulse Rate 100 H 113 H 101 H Respiratory 29 H 31 H 29 H Rate Blood Pressure 109/60 107/68 107/68 O2 Sat by Pulse 99 98 99 Oximetry 07/24/19 07/24/19 07/24/19 00:30 00:45 01:00 Temperature Pulse Rate 109 H 107 H 125 H Respiratory 31 H 30 H 23 Rate Blood Pressure 113/65 113/65 127/106 O2 Sat by Pulse 99 97 89 Oximetry 07/24/19 07/24/19 07/24/19 01:15 01:30 01:45 Temperature Pulse Rate 118 H 113 H 119 H Respiratory 32 H 31 H 32 H Rate Blood Pressure 127/106 119/67 127/106 O2 Sat by Pulse 95 97 94 Oximetry 07/24/19 07/24/19 07/24/19 02:01 02:15 02:30 Temperature Pulse Rate 121 H 118 H 112 H Respiratory 28 H 15 30 H Rate Blood Pressure 105/60 119/67 112/62 O2 Sat by Pulse 95 94 96 Oximetry 07/24/19 07/24/19 07/24/19 02:45 02:47 03:00 Temperature 102.5 F H Pulse Rate 115 H 115 H Respiratory 29 H 31 H Rate Blood Pressure 112/62 111/63 O2 Sat by Pulse 96 97 Oximetry 07/24/19 07/24/19 07/24/19 03:15 03:30 03:45 Temperature Pulse Rate 111 H 113 H 109 H Respiratory 31 H 18 30 H Rate Blood Pressure 111/63 114/67 114/67 O2 Sat by Pulse 99 99 97 Oximetry 07/24/19 07/24/19 07/24/19 04:00 04:01 04:15 Temperature Pulse Rate 119 H 120 H Respiratory 29 H 33 H Rate Blood Pressure 118/73 114/67 O2 Sat by Pulse 90 95 Oximetry 07/24/19 07/24/19 07/24/19 04:30 04:45 05:00 Temperature Pulse Rate 120 H 120 H 120 H Respiratory 25 H 28 H 35 H Rate Blood Pressure 114/69 114/69 124/66 O2 Sat by Pulse 96 97 97 Oximetry 07/24/19 07/24/19 07/24/19 05:15 05:30 05:45 Temperature Pulse Rate 110 H 104 H 104 H Respiratory 28 H 27 H 28 H Rate Blood Pressure 124/66 105/47 105/47 O2 Sat by Pulse 97 97 97 Oximetry 07/24/19 07/24/19 07/24/19 05:47 06:00 06:15 Temperature Pulse Rate 103 H 102 H 105 H Respiratory 27 H 27 H Rate Blood Pressure 105/47 101/46 101/46 O2 Sat by Pulse 97 97 96 Oximetry 07/24/19 07/24/19 07/24/19 06:30 06:45 07:00 Temperature Pulse Rate 101 H 101 H 98 H Respiratory 27 H 29 H 27 H Rate Blood Pressure 98/50 98/50 104/51 O2 Sat by Pulse 98 97 97 Oximetry 07/24/19 07/24/19 08:00 11:29 Temperature 97.8 F Pulse Rate 96 H 117 H Respiratory Rate Blood Pressure 141/112 143/80 O2 Sat by Pulse 96 93 Oximetry Constitutional: other (sedated, critically ill on ventilator. Opens eyes to tactile stimule) Eyes: non-icteric ENT: other (orally intubated and sedated) Neck: supple Effort: other (tachypneic 2/2 vent) Ascultation: Bilateral: rales, other (coarse equal BS bilaterally) Percussion: Bilateral: not dull Cardiovascular: regular rate and rhythm (sinus tach) Gastrointestinal: normoactive bowel sounds, soft, non-tender, non-distended Integumentary: normal Extremities: no cyanosis, no edema, pink and warm Neurologic: other (sedated opens eyes to tactile stimuli) Psychiatric: other (unable to obtain) CBC and BMP: 07/24/19 03:34 07/24/19 03:34 ABG, PT/INR, D-dimer: ABG POC ABG pH 7.239 (7.35-7.45) L 07/18/19 05:51 ABG pH 7.457 pH Units (7.350-7.450) H 07/24/19 04:50 POC ABG pCO2 56.9 (35-45) H 07/18/19 05:51 ABG pCO2 46.5 mm Hg 07/24/19 04:50 POC ABG pO2 88 (80-105) 07/18/19 05:51 ABG pO2 138.3 mm Hg (80.0-90.0) H 07/24/19 04:50 POC ABG HCO3 24.3 (22-26 mml/L) 07/18/19 05:51 POC ABG Total CO2 26 (23-27mmol/L) 07/18/19 05:51 POC ABG O2 Sat 95 07/18/19 05:51 ABG O2 Saturation 98.7 % (95.0-99.0) 07/24/19 04:50 PT/INR, D-dimer PT 16.3 Sec. (12.2-14.9) H 07/16/19 05:47 INR 1.35 (0.87-1.13) H 07/16/19 05:47 Abnormal lab findings: Abnormal Labs 07/16/19 07/16/19 07/16/19 02:01 02:01 02:01 WBC 11.7 H RBC Hct Plt Count 101 L Seg Neutrophils % Seg Neuts % (Manual) 92.0 H Lymphocytes % (Manual) 5.0 L Monocytes % (Manual) Eosinophils % (Manual) Seg Neutrophils # Seg Neutrophils # Man 10.8 H Lymphocytes # (Manual) 0.6 L Monocytes # (Manual) Eosinophils # (Manual) PT 15.2 H INR 1.23 H POC ABG pH ABG pH POC ABG pCO2 POC ABG pO2 ABG pO2 ABG HCO3 ABG O2 Saturation ABG Base Excess ABG Hemoglobin Oxyhemoglobin Sodium Potassium Chloride Carbon Dioxide 18 L BUN 46 H Creatinine 2.2 H Glucose 116 H POC Glucose Lactic Acid Calcium Phosphorus Magnesium Total Bilirubin Direct Bilirubin AST 63 H ALT 125 H Alkaline Phosphatase Total Protein 6.2 L Albumin 2.8 L Lipase Urine WBC (Auto) U Epithel Cells (Auto) Urine Creatinine Hepatitis C Antibody 07/16/19 07/16/19 07/16/19 02:16 02:43 04:07 WBC RBC Hct Plt Count Seg Neutrophils % Seg Neuts % (Manual) Lymphocytes % (Manual) Monocytes % (Manual) Eosinophils % (Manual) Seg Neutrophils # Seg Neutrophils # Man Lymphocytes # (Manual) Monocytes # (Manual) Eosinophils # (Manual) PT INR POC ABG pH ABG pH POC ABG pCO2 POC ABG pO2 ABG pO2 ABG HCO3 ABG O2 Saturation ABG Base Excess ABG Hemoglobin Oxyhemoglobin Sodium Potassium Chloride Carbon Dioxide BUN Creatinine Glucose POC Glucose Lactic Acid 2.10 H* 2.30 H* Calcium Phosphorus Magnesium Total Bilirubin Direct Bilirubin AST ALT Alkaline Phosphatase Total Protein Albumin Lipase 6 L Urine WBC (Auto) U Epithel Cells (Auto) Urine Creatinine Hepatitis C Antibody 07/16/19 07/16/19 07/16/19 05:47 05:59 14:30 WBC RBC Hct Plt Count Seg Neutrophils % Seg Neuts % (Manual) Lymphocytes % (Manual) Monocytes % (Manual) Eosinophils % (Manual) Seg Neutrophils # Seg Neutrophils # Man Lymphocytes # (Manual) Monocytes # (Manual) Eosinophils # (Manual) PT 16.3 H INR 1.35 H POC ABG pH ABG pH POC ABG pCO2 POC ABG pO2 ABG pO2 ABG HCO3 ABG O2 Saturation ABG Base Excess ABG Hemoglobin Oxyhemoglobin Sodium Potassium Chloride Carbon Dioxide BUN Creatinine Glucose POC Glucose Lactic Acid Calcium Phosphorus Magnesium Total Bilirubin Direct Bilirubin AST ALT Alkaline Phosphatase Total Protein Albumin Lipase Urine WBC (Auto) > 182.0 H U Epithel Cells (Auto) 21.0 H Urine Creatinine 76.6 H Hepatitis C Antibody 07/16/19 07/17/19 07/17/19 23:27 00:03 00:03 WBC RBC Hct Plt Count Seg Neutrophils % Seg Neuts % (Manual) Lymphocytes % (Manual) Monocytes % (Manual) Eosinophils % (Manual) Seg Neutrophils # Seg Neutrophils # Man Lymphocytes # (Manual) Monocytes # (Manual) Eosinophils # (Manual) PT INR POC ABG pH 7.093 L ABG pH POC ABG pCO2 32.8 L POC ABG pO2 66 L ABG pO2 ABG HCO3 ABG O2 Saturation ABG Base Excess ABG Hemoglobin Oxyhemoglobin Sodium 148 H D Potassium Chloride 120.5 H Carbon Dioxide 14 L BUN 35 H Creatinine 1.5 H Glucose 42 L POC Glucose Lactic Acid 2.90 H* Calcium 5.7 L* D Phosphorus Magnesium Total Bilirubin Direct Bilirubin AST ALT Alkaline Phosphatase Total Protein Albumin Lipase Urine WBC (Auto) U Epithel Cells (Auto) Urine Creatinine Hepatitis C Antibody 07/17/19 07/17/19 07/17/19 03:01 03:29 03:40 WBC 13.2 H RBC Hct Plt Count 116 L Seg Neutrophils % Seg Neuts % (Manual) Lymphocytes % (Manual) 9.0 L Monocytes % (Manual) Eosinophils % (Manual) 24.0 H Seg Neutrophils # Seg Neutrophils # Man 8.6 H Lymphocytes # (Manual) Monocytes # (Manual) Eosinophils # (Manual) 3.2 H PT INR POC ABG pH 6.981 L ABG pH POC ABG pCO2 55.6 H POC ABG pO2 ABG pO2 ABG HCO3 ABG O2 Saturation ABG Base Excess ABG Hemoglobin Oxyhemoglobin Sodium Potassium Chloride Carbon Dioxide BUN Creatinine Glucose POC Glucose 64 L Lactic Acid Calcium Phosphorus Magnesium Total Bilirubin Direct Bilirubin AST ALT Alkaline Phosphatase Total Protein Albumin Lipase Urine WBC (Auto) U Epithel Cells (Auto) Urine Creatinine Hepatitis C Antibody 07/17/19 07/17/19 07/17/19 03:40 03:40 04:08 WBC RBC Hct Plt Count Seg Neutrophils % Seg Neuts % (Manual) Lymphocytes % (Manual) Monocytes % (Manual) Eosinophils % (Manual) Seg Neutrophils # Seg Neutrophils # Man Lymphocytes # (Manual) Monocytes # (Manual) Eosinophils # (Manual) PT INR POC ABG pH 7.056 L ABG pH POC ABG pCO2 POC ABG pO2 63 L ABG pO2 ABG HCO3 ABG O2 Saturation ABG Base Excess ABG Hemoglobin Oxyhemoglobin Sodium 147 H Potassium Chloride 120.2 H Carbon Dioxide 14 L BUN 36 H Creatinine 1.6 H Glucose POC Glucose Lactic Acid 3.20 H* Calcium 6.0 L Phosphorus Magnesium Total Bilirubin Direct Bilirubin AST ALT Alkaline Phosphatase Total Protein Albumin Lipase Urine WBC (Auto) U Epithel Cells (Auto) Urine Creatinine Hepatitis C Antibody 07/17/19 07/17/19 07/17/19 05:33 05:45 06:51 WBC RBC Hct Plt Count Seg Neutrophils % Seg Neuts % (Manual) Lymphocytes % (Manual) Monocytes % (Manual) Eosinophils % (Manual) Seg Neutrophils # Seg Neutrophils # Man Lymphocytes # (Manual) Monocytes # (Manual) Eosinophils # (Manual) PT INR POC ABG pH 7.061 L ABG pH POC ABG pCO2 49.0 H POC ABG pO2 ABG pO2 ABG HCO3 ABG O2 Saturation ABG Base Excess ABG Hemoglobin Oxyhemoglobin Sodium Potassium Chloride Carbon Dioxide BUN Creatinine Glucose POC Glucose 64 L 239 H Lactic Acid Calcium Phosphorus Magnesium Total Bilirubin Direct Bilirubin AST ALT Alkaline Phosphatase Total Protein Albumin Lipase Urine WBC (Auto) U Epithel Cells (Auto) Urine Creatinine Hepatitis C Antibody 07/17/19 07/17/19 07/17/19 10:57 12:56 18:11 WBC RBC Hct Plt Count Seg Neutrophils % Seg Neuts % (Manual) Lymphocytes % (Manual) Monocytes % (Manual) Eosinophils % (Manual) Seg Neutrophils # Seg Neutrophils # Man Lymphocytes # (Manual) Monocytes # (Manual) Eosinophils # (Manual) PT INR POC ABG pH ABG pH 7.192 L* POC ABG pCO2 POC ABG pO2 ABG pO2 67.5 L ABG HCO3 16.3 L ABG O2 Saturation 92.6 L ABG Base Excess -11.4 L ABG Hemoglobin Oxyhemoglobin 91.1 L Sodium Potassium Chloride Carbon Dioxide BUN Creatinine Glucose POC Glucose 107 H 122 H Lactic Acid Calcium Phosphorus Magnesium Total Bilirubin Direct Bilirubin AST ALT Alkaline Phosphatase Total Protein Albumin Lipase Urine WBC (Auto) U Epithel Cells (Auto) Urine Creatinine Hepatitis C Antibody 07/17/19 07/17/19 07/18/19 23:34 Unknown 04:00 WBC RBC Hct Plt Count 85 L Seg Neutrophils % Seg Neuts % (Manual) 82.0 H Lymphocytes % (Manual) 2.0 L Monocytes % (Manual) 12.0 H Eosinophils % (Manual) Seg Neutrophils # Seg Neutrophils # Man Lymphocytes # (Manual) 0.2 L Monocytes # (Manual) 1.1 H Eosinophils # (Manual) PT INR POC ABG pH ABG pH 7.237 L POC ABG pCO2 POC ABG pO2 ABG pO2 142.4 H ABG HCO3 17.0 L ABG O2 Saturation ABG Base Excess -9.8 L ABG Hemoglobin Oxyhemoglobin Sodium Potassium Chloride Carbon Dioxide BUN Creatinine Glucose POC Glucose 136 H Lactic Acid Calcium Phosphorus Magnesium Total Bilirubin Direct Bilirubin AST ALT Alkaline Phosphatase Total Protein Albumin Lipase Urine WBC (Auto) U Epithel Cells (Auto) Urine Creatinine Hepatitis C Antibody 07/18/19 07/18/19 07/18/19 04:00 05:31 05:51 WBC RBC Hct Plt Count Seg Neutrophils % Seg Neuts % (Manual) Lymphocytes % (Manual) Monocytes % (Manual) Eosinophils % (Manual) Seg Neutrophils # Seg Neutrophils # Man Lymphocytes # (Manual) Monocytes # (Manual) Eosinophils # (Manual) PT INR POC ABG pH 7.239 L ABG pH POC ABG pCO2 56.9 H POC ABG pO2 ABG pO2 ABG HCO3 ABG O2 Saturation ABG Base Excess ABG Hemoglobin Oxyhemoglobin Sodium 151 H Potassium 3.2 L D Chloride 114.7 H Carbon Dioxide BUN 42 H Creatinine 2.1 H Glucose 130 H POC Glucose 135 H Lactic Acid Calcium 6.0 L Phosphorus Magnesium Total Bilirubin 2.10 H Direct Bilirubin AST 59 H ALT 62 H Alkaline Phosphatase Total Protein 4.8 L D Albumin 2.0 L Lipase Urine WBC (Auto) U Epithel Cells (Auto) Urine Creatinine Hepatitis C Antibody 07/18/19 07/18/19 07/18/19 12:05 18:30 23:40 WBC RBC Hct Plt Count Seg Neutrophils % Seg Neuts % (Manual) Lymphocytes % (Manual) Monocytes % (Manual) Eosinophils % (Manual) Seg Neutrophils # Seg Neutrophils # Man Lymphocytes # (Manual) Monocytes # (Manual) Eosinophils # (Manual) PT INR POC ABG pH ABG pH POC ABG pCO2 POC ABG pO2 ABG pO2 ABG HCO3 ABG O2 Saturation ABG Base Excess ABG Hemoglobin Oxyhemoglobin Sodium Potassium Chloride Carbon Dioxide BUN Creatinine Glucose POC Glucose 126 H 131 H 163 H Lactic Acid Calcium Phosphorus Magnesium Total Bilirubin Direct Bilirubin AST ALT Alkaline Phosphatase Total Protein Albumin Lipase Urine WBC (Auto) U Epithel Cells (Auto) Urine Creatinine Hepatitis C Antibody 07/19/19 07/19/19 07/19/19 03:35 04:57 08:15 WBC 11.1 H RBC 3.64 L Hct Plt Count 71 L Seg Neutrophils % Seg Neuts % (Manual) Lymphocytes % (Manual) Monocytes % (Manual) Eosinophils % (Manual) Seg Neutrophils # Seg Neutrophils # Man Lymphocytes # (Manual) Monocytes # (Manual) Eosinophils # (Manual) PT INR POC ABG pH ABG pH 7.296 L POC ABG pCO2 POC ABG pO2 ABG pO2 78.7 L ABG HCO3 26.4 H ABG O2 Saturation ABG Base Excess ABG Hemoglobin 11.1 L Oxyhemoglobin 93.3 L Sodium Potassium Chloride Carbon Dioxide BUN Creatinine Glucose POC Glucose 170 H Lactic Acid Calcium Phosphorus Magnesium Total Bilirubin Direct Bilirubin AST ALT Alkaline Phosphatase Total Protein Albumin Lipase Urine WBC (Auto) U Epithel Cells (Auto) Urine Creatinine Hepatitis C Antibody 07/19/19 07/19/19 07/19/19 08:15 12:34 18:32 WBC RBC Hct Plt Count Seg Neutrophils % Seg Neuts % (Manual) Lymphocytes % (Manual) Monocytes % (Manual) Eosinophils % (Manual) Seg Neutrophils # Seg Neutrophils # Man Lymphocytes # (Manual) Monocytes # (Manual) Eosinophils # (Manual) PT INR POC ABG pH ABG pH POC ABG pCO2 POC ABG pO2 ABG pO2 ABG HCO3 ABG O2 Saturation ABG Base Excess ABG Hemoglobin Oxyhemoglobin Sodium 146 H Potassium 2.9 L* Chloride 107.9 H Carbon Dioxide BUN 35 H Creatinine 1.5 H Glucose 156 H POC Glucose 160 H 138 H Lactic Acid Calcium 6.6 L Phosphorus Magnesium Total Bilirubin Direct Bilirubin AST ALT Alkaline Phosphatase Total Protein Albumin Lipase Urine WBC (Auto) U Epithel Cells (Auto) Urine Creatinine Hepatitis C Antibody 07/19/19 07/19/19 07/20/19 23:41 Unknown 04:20 WBC RBC Hct Plt Count Seg Neutrophils % Seg Neuts % (Manual) Lymphocytes % (Manual) Monocytes % (Manual) Eosinophils % (Manual) Seg Neutrophils # Seg Neutrophils # Man Lymphocytes # (Manual) Monocytes # (Manual) Eosinophils # (Manual) PT INR POC ABG pH ABG pH 7.316 L POC ABG pCO2 POC ABG pO2 ABG pO2 ABG HCO3 27.9 H ABG O2 Saturation ABG Base Excess ABG Hemoglobin Oxyhemoglobin 94.0 L Sodium 149 H Potassium 3.2 L Chloride 112.3 H Carbon Dioxide BUN 34 H Creatinine Glucose 162 H POC Glucose 145 H Lactic Acid Calcium 7.0 L Phosphorus Magnesium 1.50 L Total Bilirubin Direct Bilirubin AST ALT Alkaline Phosphatase Total Protein Albumin Lipase Urine WBC (Auto) U Epithel Cells (Auto) Urine Creatinine Hepatitis C Antibody 07/20/19 07/20/19 07/20/19 05:25 07:50 07:50 WBC 12.6 H RBC 3.51 L Hct Plt Count 56 L Seg Neutrophils % Seg Neuts % (Manual) 89.0 H Lymphocytes % (Manual) 5.0 L Monocytes % (Manual) Eosinophils % (Manual) Seg Neutrophils # Seg Neutrophils # Man 11.2 H Lymphocytes # (Manual) 0.6 L Monocytes # (Manual) Eosinophils # (Manual) PT INR POC ABG pH ABG pH POC ABG pCO2 POC ABG pO2 ABG pO2 ABG HCO3 ABG O2 Saturation ABG Base Excess ABG Hemoglobin Oxyhemoglobin Sodium 151 H Potassium 3.4 L Chloride 114.7 H Carbon Dioxide 31 H BUN 30 H Creatinine Glucose 148 H POC Glucose 141 H Lactic Acid Calcium 7.3 L Phosphorus Magnesium Total Bilirubin Direct Bilirubin AST ALT Alkaline Phosphatase Total Protein Albumin Lipase Urine WBC (Auto) U Epithel Cells (Auto) Urine Creatinine Hepatitis C Antibody 07/20/19 07/20/19 07/20/19 15:47 17:25 23:57 WBC RBC Hct Plt Count Seg Neutrophils % Seg Neuts % (Manual) Lymphocytes % (Manual) Monocytes % (Manual) Eosinophils % (Manual) Seg Neutrophils # Seg Neutrophils # Man Lymphocytes # (Manual) Monocytes # (Manual) Eosinophils # (Manual) PT INR POC ABG pH ABG pH POC ABG pCO2 POC ABG pO2 ABG pO2 ABG HCO3 ABG O2 Saturation ABG Base Excess ABG Hemoglobin Oxyhemoglobin Sodium Potassium Chloride Carbon Dioxide BUN Creatinine Glucose POC Glucose 160 H 165 H 122 H Lactic Acid Calcium Phosphorus Magnesium Total Bilirubin Direct Bilirubin AST ALT Alkaline Phosphatase Total Protein Albumin Lipase Urine WBC (Auto) U Epithel Cells (Auto) Urine Creatinine Hepatitis C Antibody 07/21/19 07/21/19 07/21/19 05:00 05:00 05:00 WBC 15.8 H RBC Hct Plt Count 56 L Seg Neutrophils % Seg Neuts % (Manual) Lymphocytes % (Manual) Monocytes % (Manual) Eosinophils % (Manual) Seg Neutrophils # Seg Neutrophils # Man Lymphocytes # (Manual) Monocytes # (Manual) Eosinophils # (Manual) PT INR POC ABG pH ABG pH POC ABG pCO2 POC ABG pO2 ABG pO2 ABG HCO3 ABG O2 Saturation ABG Base Excess ABG Hemoglobin Oxyhemoglobin Sodium 147 H Potassium 3.5 L Chloride 111.4 H Carbon Dioxide BUN 21 H Creatinine Glucose 107 H POC Glucose Lactic Acid Calcium 7.6 L Phosphorus 1.60 L Magnesium Total Bilirubin 4.80 H Direct Bilirubin AST 48 H ALT Alkaline Phosphatase 131 H Total Protein 4.3 L Albumin 1.5 L Lipase Urine WBC (Auto) U Epithel Cells (Auto) Urine Creatinine Hepatitis C Antibody 07/21/19 07/21/19 07/21/19 05:34 12:12 18:22 WBC RBC Hct Plt Count Seg Neutrophils % Seg Neuts % (Manual) Lymphocytes % (Manual) Monocytes % (Manual) Eosinophils % (Manual) Seg Neutrophils # Seg Neutrophils # Man Lymphocytes # (Manual) Monocytes # (Manual) Eosinophils # (Manual) PT INR POC ABG pH ABG pH POC ABG pCO2 POC ABG pO2 ABG pO2 ABG HCO3 ABG O2 Saturation ABG Base Excess ABG Hemoglobin Oxyhemoglobin Sodium Potassium Chloride Carbon Dioxide BUN Creatinine Glucose POC Glucose 119 H 108 H 125 H Lactic Acid Calcium Phosphorus Magnesium Total Bilirubin Direct Bilirubin AST ALT Alkaline Phosphatase Total Protein Albumin Lipase Urine WBC (Auto) U Epithel Cells (Auto) Urine Creatinine Hepatitis C Antibody 07/21/19 07/21/19 07/22/19 23:27 Unknown 04:25 WBC RBC Hct Plt Count Seg Neutrophils % Seg Neuts % (Manual) Lymphocytes % (Manual) Monocytes % (Manual) Eosinophils % (Manual) Seg Neutrophils # Seg Neutrophils # Man Lymphocytes # (Manual) Monocytes # (Manual) Eosinophils # (Manual) PT INR POC ABG pH ABG pH POC ABG pCO2 POC ABG pO2 ABG pO2 61.9 L 68.7 L ABG HCO3 28.9 H 29.1 H ABG O2 Saturation 93.5 L 94.4 L ABG Base Excess 3.5 H ABG Hemoglobin 10.8 L 11.5 L Oxyhemoglobin 91.6 L 92.3 L Sodium Potassium Chloride Carbon Dioxide BUN Creatinine Glucose POC Glucose 126 H Lactic Acid Calcium Phosphorus Magnesium Total Bilirubin Direct Bilirubin AST ALT Alkaline Phosphatase Total Protein Albumin Lipase Urine WBC (Auto) U Epithel Cells (Auto) Urine Creatinine Hepatitis C Antibody 07/22/19 07/22/19 07/22/19 05:25 07:00 07:00 WBC 14.9 H RBC Hct Plt Count 87 L Seg Neutrophils % Seg Neuts % (Manual) Lymphocytes % (Manual) Monocytes % (Manual) Eosinophils % (Manual) Seg Neutrophils # Seg Neutrophils # Man Lymphocytes # (Manual) Monocytes # (Manual) Eosinophils # (Manual) PT INR POC ABG pH ABG pH POC ABG pCO2 POC ABG pO2 ABG pO2 ABG HCO3 ABG O2 Saturation ABG Base Excess ABG Hemoglobin Oxyhemoglobin Sodium 147 H Potassium 3.3 L Chloride 110.9 H Carbon Dioxide BUN Creatinine 0.6 L Glucose 107 H POC Glucose 107 H Lactic Acid Calcium 7.5 L Phosphorus Magnesium Total Bilirubin Direct Bilirubin AST ALT Alkaline Phosphatase Total Protein Albumin Lipase Urine WBC (Auto) U Epithel Cells (Auto) Urine Creatinine Hepatitis C Antibody 07/22/19 07/22/19 07/23/19 17:41 23:40 04:50 WBC RBC Hct Plt Count Seg Neutrophils % Seg Neuts % (Manual) Lymphocytes % (Manual) Monocytes % (Manual) Eosinophils % (Manual) Seg Neutrophils # Seg Neutrophils # Man Lymphocytes # (Manual) Monocytes # (Manual) Eosinophils # (Manual) PT INR POC ABG pH ABG pH POC ABG pCO2 POC ABG pO2 ABG pO2 ABG HCO3 ABG O2 Saturation ABG Base Excess ABG Hemoglobin Oxyhemoglobin Sodium Potassium Chloride Carbon Dioxide BUN Creatinine 0.6 L Glucose 102 H POC Glucose 132 H 123 H Lactic Acid Calcium 7.8 L Phosphorus Magnesium 1.50 L Total Bilirubin Direct Bilirubin AST ALT Alkaline Phosphatase Total Protein Albumin Lipase Urine WBC (Auto) U Epithel Cells (Auto) Urine Creatinine Hepatitis C Antibody 07/23/19 07/23/19 07/23/19 05:00 10:50 10:50 WBC 13.0 H RBC 3.41 L Hct Plt Count 100 L Seg Neutrophils % Seg Neuts % (Manual) Lymphocytes % (Manual) Monocytes % (Manual) Eosinophils % (Manual) Seg Neutrophils # Seg Neutrophils # Man Lymphocytes # (Manual) Monocytes # (Manual) Eosinophils # (Manual) PT INR POC ABG pH ABG pH POC ABG pCO2 POC ABG pO2 ABG pO2 100.4 H ABG HCO3 28.7 H ABG O2 Saturation ABG Base Excess ABG Hemoglobin 11.0 L Oxyhemoglobin Sodium Potassium Chloride Carbon Dioxide BUN Creatinine Glucose POC Glucose Lactic Acid Calcium Phosphorus Magnesium Total Bilirubin 2.60 H Direct Bilirubin 2.2 H AST 41 H ALT Alkaline Phosphatase Total Protein 4.4 L Albumin 1.4 L Lipase Urine WBC (Auto) U Epithel Cells (Auto) Urine Creatinine Hepatitis C Antibody 07/23/19 07/23/19 07/23/19 11:49 11:49 17:42 WBC RBC Hct Plt Count Seg Neutrophils % Seg Neuts % (Manual) Lymphocytes % (Manual) Monocytes % (Manual) Eosinophils % (Manual) Seg Neutrophils # Seg Neutrophils # Man Lymphocytes # (Manual) Monocytes # (Manual) Eosinophils # (Manual) PT INR POC ABG pH ABG pH POC ABG pCO2 POC ABG pO2 ABG pO2 ABG HCO3 ABG O2 Saturation ABG Base Excess ABG Hemoglobin Oxyhemoglobin Sodium Potassium Chloride Carbon Dioxide BUN Creatinine Glucose POC Glucose 109 H 124 H Lactic Acid Calcium Phosphorus Magnesium Total Bilirubin Direct Bilirubin AST ALT Alkaline Phosphatase Total Protein Albumin Lipase Urine WBC (Auto) U Epithel Cells (Auto) Urine Creatinine Hepatitis C Antibody Reactive A 07/23/19 07/24/19 07/24/19 23:37 03:34 03:34 WBC 13.7 H RBC 3.39 L Hct 29.9 L Plt Count 116 L Seg Neutrophils % 77.7 H Seg Neuts % (Manual) Lymphocytes % (Manual) Monocytes % (Manual) Eosinophils % (Manual) Seg Neutrophils # 10.6 H Seg Neutrophils # Man Lymphocytes # (Manual) Monocytes # (Manual) Eosinophils # (Manual) PT INR POC ABG pH ABG pH POC ABG pCO2 POC ABG pO2 ABG pO2 ABG HCO3 ABG O2 Saturation ABG Base Excess ABG Hemoglobin Oxyhemoglobin Sodium Potassium 3.3 L Chloride Carbon Dioxide 35 H BUN Creatinine 0.6 L Glucose 139 H POC Glucose 145 H Lactic Acid Calcium 7.7 L Phosphorus Magnesium Total Bilirubin Direct Bilirubin AST ALT Alkaline Phosphatase Total Protein Albumin Lipase Urine WBC (Auto) U Epithel Cells (Auto) Urine Creatinine Hepatitis C Antibody 07/24/19 07/24/19 04:50 05:11 WBC RBC Hct Plt Count Seg Neutrophils % Seg Neuts % (Manual) Lymphocytes % (Manual) Monocytes % (Manual) Eosinophils % (Manual) Seg Neutrophils # Seg Neutrophils # Man Lymphocytes # (Manual) Monocytes # (Manual) Eosinophils # (Manual) PT INR POC ABG pH ABG pH 7.457 H POC ABG pCO2 POC ABG pO2 ABG pO2 138.3 H ABG HCO3 32.1 H ABG O2 Saturation ABG Base Excess 7.4 H ABG Hemoglobin 8.2 L Oxyhemoglobin Sodium Potassium Chloride Carbon Dioxide BUN Creatinine Glucose POC Glucose 128 H Lactic Acid Calcium Phosphorus Magnesium Total Bilirubin Direct Bilirubin AST ALT Alkaline Phosphatase Total Protein Albumin Lipase Urine WBC (Auto) U Epithel Cells (Auto) Urine Creatinine Hepatitis C Antibody
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
--- NOTE | 2019-07-24 12:39 | Progress Note ---
Assessment and Plan /Acute hypoxic respiratory failure; requiring intubation - ARDS Likely from severe sepsis Continue ventilatory support , nebulizers, supportive care Pulmonary critical following, wean as tolerated Requiring high FiO2 to maintain oxygen saturation - on 66% today / Severe sepsis with Septic shock and organ failure/right foot infection/pyelonephritis/bacreremia Secondary to pyelonephritis and Escherichia coli bacteremia. weaned off pressor, Continue abs per ID, /E.coli bacteremia, likely source from pyelonephritis There is also concern for cholecystitis- general surgery following -HIDA scan ordered but pending /Transaminitis - Could be from severe sepsis versus possible underlying cholecystitis - Continue to trend LFTs, follow HIDA scan when could be obtained - obtain hepatitis panel / Acute pyelonephritis To be improving. Decreased leukocytosis. She remains extremely ill. Remains on pressors Overall prognosis remains poor especially with the new diagnosis of ARDS / Cellulitis of right foot, on abx /Acute renal failure due to ATN from severe sepsis Creatinine was 2.2 on admission monitor renal function, Cr now stable / Malnutrition Nutrition corrected by NG tube feedings. Nutrition following /Electrolyte imbalance Hyponatremia -manage with free water with tube feeding Hypokalemia - continue to replete as needed and continue to monitor BMP Hypomagnesemia - replete as needed, continue to follow The high probability of a clinically significant, sudden or life threatening de terioration of the [pulmonary, renal, infectious, metabolic] system(s) required my full and direct attention, intervention and personal management. The aggregate critical care time was [35] minutes. This time is in addition to time spent performing reported procedures but includes the following: [X] Data Review and interpretation [X] Patient assessment and monitoring of vital signs [x] Documentation [x] Medication orders and management Brief history The patient is a 44-year-old female with bipolar disorder presented to the emergency room with right foot pain, abdominal pain and fevers. She previously presented to the emergency room on 06/28/2019 with right foot with redness and pain following a possible spider bite. She was given a prescription for oral Augmentin and was discharged home. Patient stated that she was compliant with Augmentin and also was soaking her right foot in Epsom salts. About 2-3 days prior to admission, she started developing fevers, nausea as well as worsening abdominal pain. She has presented to the emergency room and was hospitalized. She was noted to be septic,Started on empiric antibiotics. She decompensated on the floor and required intubation and transferred to ICU for further management on 07/17/2019. Also requiring pressors for septic shock, blood culture growing Escherichia coli bacteremia. There is also concern for acute cholecystitis - HIDA scan ordered but pending as patient is not clinically stable to obtain the test. Radiological data: CT abdomen/pelvis: 1. Mild nonspecific left-sided perinephric stranding in this patient with punctate bilateral nonobstructive nephrolithiasis. No asymmetric hydronephrosis or ureteral stone disease. 2. Complex cyst versus mass in the left ovary. Recommend nonemergent follow-up pelvic ultrasound. 3. Mild periportal edema could be related to aggressive hydration therapy. 4. Other incidental findings as outlined above on this limited noncontrast exam with mild motion artifact. Of note, there is a 5 mm nodule in the right middle lobe. Please see below recommendations. Abdomen ultrasound: 1. No gallstones, but the gallbladder wall is thickened and edematous. 2. Small bilateral pleural effusions. Hospitalist Physical General appearance: Present: no acute distress, well-nourished, other (intubated on ventilatory support and sedated) - EENT Eyes: Present: PERRL, EOM intact - Neck Neck: Present: supple, normal ROM - Respiratory Respiratory effort: labored Respiratory: bilateral: diminished, rhonchi, negative: rales, wheezing - Cardiovascular Rhythm: regular Heart Sounds: Present: S1 & S2 - Extremities Extremities: no ischemia, abnormal (cellulitis lower extremity) Extremity abnormal: edema - Abdominal General gastrointestinal: soft, non-tender, non-distended, normal bowel sounds - Integumentary Integumentary: Present: clear, warm - Psychiatric Psychiatric: other (intubated on vent) - Neurologic Neurologic: other (intubated on vent) Subjective Date of service: 07/24/19 Principal diagnosis: Acute respiratory failure Interval history: Patient seen and examined Remain intubated with high FiO2 - trended down to 66% FiO2 off pressor support Tolerating tube feeding Objective - Constitutional Vitals: Vital Signs - 12hr 07/24/19 07/24/19 07/24/19 00:45 01:00 01:15 Temperature Pulse Rate 107 H 125 H 118 H Respiratory 30 H 23 32 H Rate Blood Pressure 113/65 127/106 127/106 O2 Sat by Pulse 97 89 95 Oximetry 07/24/19 07/24/19 07/24/19 01:30 01:45 02:01 Temperature Pulse Rate 113 H 119 H 121 H Respiratory 31 H 32 H 28 H Rate Blood Pressure 119/67 127/106 105/60 O2 Sat by Pulse 97 94 95 Oximetry 07/24/19 07/24/19 07/24/19 02:15 02:30 02:45 Temperature Pulse Rate 118 H 112 H 115 H Respiratory 15 30 H 29 H Rate Blood Pressure 119/67 112/62 112/62 O2 Sat by Pulse 94 96 96 Oximetry 07/24/19 07/24/19 07/24/19 02:47 03:00 03:15 Temperature 102.5 F H Pulse Rate 115 H 111 H Respiratory 31 H 31 H Rate Blood Pressure 111/63 111/63 O2 Sat by Pulse 97 99 Oximetry 07/24/19 07/24/19 07/24/19 03:30 03:45 04:00 Temperature Pulse Rate 113 H 109 H 119 H Respiratory 18 30 H Rate Blood Pressure 114/67 114/67 O2 Sat by Pulse 99 97 Oximetry 07/24/19 07/24/19 07/24/19 04:01 04:15 04:30 Temperature Pulse Rate 120 H 120 H Respiratory 29 H 33 H 25 H Rate Blood Pressure 118/73 114/67 114/69 O2 Sat by Pulse 90 95 96 Oximetry 07/24/19 07/24/19 07/24/19 04:45 05:00 05:15 Temperature Pulse Rate 120 H 120 H 110 H Respiratory 28 H 35 H 28 H Rate Blood Pressure 114/69 124/66 124/66 O2 Sat by Pulse 97 97 97 Oximetry 07/24/19 07/24/19 07/24/19 05:30 05:45 05:47 Temperature Pulse Rate 104 H 104 H 103 H Respiratory 27 H 28 H Rate Blood Pressure 105/47 105/47 105/47 O2 Sat by Pulse 97 97 97 Oximetry 07/24/19 07/24/19 07/24/19 06:00 06:15 06:30 Temperature Pulse Rate 102 H 105 H 101 H Respiratory 27 H 27 H 27 H Rate Blood Pressure 101/46 101/46 98/50 O2 Sat by Pulse 97 96 98 Oximetry 07/24/19 07/24/19 07/24/19 06:45 07:00 07:46 Temperature Pulse Rate 101 H 98 H 108 H Respiratory 29 H 27 H 20 Rate Blood Pressure 98/50 104/51 106/51 O2 Sat by Pulse 97 97 97 Oximetry 07/24/19 07/24/19 07/24/19 08:00 08:15 08:30 Temperature 97.8 F Pulse Rate 115 H 110 H 111 H Respiratory 32 H 19 Rate Blood Pressure 106/51 106/51 130/61 O2 Sat by Pulse 96 93 Oximetry 07/24/19 07/24/19 07/24/19 08:45 09:00 09:15 Temperature Pulse Rate 102 H 103 H 95 H Respiratory 28 H 26 H 27 H Rate Blood Pressure 125/62 141/112 130/61 O2 Sat by Pulse 97 98 96 Oximetry 07/24/19 07/24/19 07/24/19 09:30 09:45 10:00 Temperature Pulse Rate 97 H 94 H 92 H Respiratory 27 H 28 H 27 H Rate Blood Pressure 101/52 101/52 100/46 O2 Sat by Pulse 95 94 94 Oximetry 07/24/19 07/24/19 07/24/19 10:15 10:30 10:45 Temperature Pulse Rate 89 89 92 H Respiratory 26 H 27 H 28 H Rate Blood Pressure 100/46 105/56 105/56 O2 Sat by Pulse 94 97 99 Oximetry 07/24/19 07/24/19 07/24/19 11:00 11:15 11:29 Temperature Pulse Rate 114 H 101 H 117 H Respiratory 34 H 26 H Rate Blood Pressure 138/72 138/72 143/80 O2 Sat by Pulse 90 96 93 Oximetry 07/24/19 07/24/19 07/24/19 11:31 11:45 12:00 Temperature Pulse Rate 119 H 114 H 114 H Respiratory 36 H 33 H 36 H Rate Blood Pressure 143/80 143/80 131/72 O2 Sat by Pulse 94 96 97 Oximetry 07/24/19 07/24/19 12:15 12:30 Temperature Pulse Rate 114 H 110 H Respiratory 27 H 25 H Rate Blood Pressure 131/72 132/70 O2 Sat by Pulse 97 96 Oximetry - Labs CBC & Chem 7: 07/26/19 05:00 07/26/19 05:00 Labs: Abnormal lab results 07/23/19 07/23/19 07/23/19 Range/Units 11:49 17:42 23:37 WBC (4.5-11.0) K/mm3 RBC (3.65-5.03) M/mm3 Hct (30.3-42.9) % Plt Count (140-440) K/mm3 Seg Neutrophils % (40.0-70.0) % Seg Neutrophils # (1.8-7.7) K/mm3 ABG pH (7.350-7.450) pH Units ABG pO2 (80.0-90.0) mm Hg ABG HCO3 (20.0-26.0) mmol/L ABG Base Excess (-2.0-3.0) mmol/L ABG Hemoglobin (12.0-16.0) gm/dl Potassium (3.6-5.0) mmol/L Carbon Dioxide (22-30) mmol/L Creatinine (0.7-1.2) mg/dL Glucose (65-100) mg/dL POC Glucose 124 H 145 H (70-105) Calcium (8.4-10.2) mg/dL Hepatitis C Antibody Reactive A (NonReactive) 07/24/19 07/24/19 07/24/19 Range/Units 03:34 03:34 04:50 WBC 13.7 H (4.5-11.0) K/mm3 RBC 3.39 L (3.65-5.03) M/mm3 Hct 29.9 L (30.3-42.9) % Plt Count 116 L (140-440) K/mm3 Seg Neutrophils % 77.7 H (40.0-70.0) % Seg Neutrophils # 10.6 H (1.8-7.7) K/mm3 ABG pH 7.457 H (7.350-7.450) pH Units ABG pO2 138.3 H (80.0-90.0) mm Hg ABG HCO3 32.1 H (20.0-26.0) mmol/L ABG Base Excess 7.4 H (-2.0-3.0) mmol/L ABG Hemoglobin 8.2 L (12.0-16.0) gm/dl Potassium 3.3 L (3.6-5.0) mmol/L Carbon Dioxide 35 H (22-30) mmol/L Creatinine 0.6 L (0.7-1.2) mg/dL Glucose 139 H (65-100) mg/dL POC Glucose (70-105) Calcium 7.7 L (8.4-10.2) mg/dL Hepatitis C Antibody (NonReactive) 07/24/19 07/24/19 Range/Units 05:11 11:29 WBC (4.5-11.0) K/mm3 RBC (3.65-5.03) M/mm3 Hct (30.3-42.9) % Plt Count (140-440) K/mm3 Seg Neutrophils % (40.0-70.0) % Seg Neutrophils # (1.8-7.7) K/mm3 ABG pH (7.350-7.450) pH Units ABG pO2 (80.0-90.0) mm Hg ABG HCO3 (20.0-26.0) mmol/L ABG Base Excess (-2.0-3.0) mmol/L ABG Hemoglobin (12.0-16.0) gm/dl Potassium (3.6-5.0) mmol/L Carbon Dioxide (22-30) mmol/L Creatinine (0.7-1.2) mg/dL Glucose (65-100) mg/dL POC Glucose 128 H 123 H (70-105) Calcium (8.4-10.2) mg/dL Hepatitis C Antibody (NonReactive)
--- NOTE | 2019-07-24 13:45 | Progress Note ---
Assessment and Plan - Patient Problems (1) Cellulitis of right foot Current Visit: Yes Status: Resolved Plan to address problem: Pt in critical condition. This is not related to foot infection. Continue routine wound care. Foot erythema is better today. Await HIDA result. If cholecystitis is suggested, would recommend that IR place drain into gallbladder. Once she recovers, then surgery could be considered in the future. I still feel that her initial high T.bili and mild elevation in transaminases was due to shock liver from her septic shock. Will follow peripherally. Please call with questions. time=10min Subjective Date of service: 07/24/19 Patient Reports: Positive: other (no new events) Objective Vital Signs - 12hr 07/24/19 07/24/19 07/24/19 01:45 02:01 02:15 Temperature Pulse Rate 119 H 121 H 118 H Respiratory 32 H 28 H 15 Rate Blood Pressure 127/106 105/60 119/67 O2 Sat by Pulse 94 95 94 Oximetry 07/24/19 07/24/19 07/24/19 02:30 02:45 02:47 Temperature 102.5 F H Pulse Rate 112 H 115 H Respiratory 30 H 29 H Rate Blood Pressure 112/62 112/62 O2 Sat by Pulse 96 96 Oximetry 07/24/19 07/24/19 07/24/19 03:00 03:15 03:30 Temperature Pulse Rate 115 H 111 H 113 H Respiratory 31 H 31 H 18 Rate Blood Pressure 111/63 111/63 114/67 O2 Sat by Pulse 97 99 99 Oximetry 07/24/19 07/24/19 07/24/19 03:45 04:00 04:01 Temperature Pulse Rate 109 H 119 H Respiratory 30 H 29 H Rate Blood Pressure 114/67 118/73 O2 Sat by Pulse 97 90 Oximetry 07/24/19 07/24/19 07/24/19 04:15 04:30 04:45 Temperature Pulse Rate 120 H 120 H 120 H Respiratory 33 H 25 H 28 H Rate Blood Pressure 114/67 114/69 114/69 O2 Sat by Pulse 95 96 97 Oximetry 07/24/19 07/24/19 07/24/19 05:00 05:15 05:30 Temperature Pulse Rate 120 H 110 H 104 H Respiratory 35 H 28 H 27 H Rate Blood Pressure 124/66 124/66 105/47 O2 Sat by Pulse 97 97 97 Oximetry 07/24/19 07/24/19 07/24/19 05:45 05:47 06:00 Temperature Pulse Rate 104 H 103 H 102 H Respiratory 28 H 27 H Rate Blood Pressure 105/47 105/47 101/46 O2 Sat by Pulse 97 97 97 Oximetry 07/24/19 07/24/19 07/24/19 06:15 06:30 06:45 Temperature Pulse Rate 105 H 101 H 101 H Respiratory 27 H 27 H 29 H Rate Blood Pressure 101/46 98/50 98/50 O2 Sat by Pulse 96 98 97 Oximetry 07/24/19 07/24/19 07/24/19 07:00 07:46 08:00 Temperature 97.8 F Pulse Rate 98 H 108 H 115 H Respiratory 27 H 20 32 H Rate Blood Pressure 104/51 106/51 106/51 O2 Sat by Pulse 97 97 96 Oximetry 07/24/19 07/24/19 07/24/19 08:15 08:30 08:45 Temperature Pulse Rate 110 H 111 H 102 H Respiratory 19 28 H Rate Blood Pressure 106/51 130/61 125/62 O2 Sat by Pulse 93 97 Oximetry 07/24/19 07/24/19 07/24/19 09:00 09:15 09:30 Temperature Pulse Rate 103 H 95 H 97 H Respiratory 26 H 27 H 27 H Rate Blood Pressure 141/112 130/61 101/52 O2 Sat by Pulse 98 96 95 Oximetry 07/24/19 07/24/19 07/24/19 09:45 10:00 10:15 Temperature Pulse Rate 94 H 92 H 89 Respiratory 28 H 27 H 26 H Rate Blood Pressure 101/52 100/46 100/46 O2 Sat by Pulse 94 94 94 Oximetry 07/24/19 07/24/19 07/24/19 10:30 10:45 11:00 Temperature Pulse Rate 89 92 H 114 H Respiratory 27 H 28 H 34 H Rate Blood Pressure 105/56 105/56 138/72 O2 Sat by Pulse 97 99 90 Oximetry 07/24/19 07/24/19 07/24/19 11:15 11:29 11:31 Temperature Pulse Rate 101 H 117 H 119 H Respiratory 26 H 36 H Rate Blood Pressure 138/72 143/80 143/80 O2 Sat by Pulse 96 93 94 Oximetry 07/24/19 07/24/19 07/24/19 11:45 12:00 12:15 Temperature 97.8 F Pulse Rate 114 H 114 H 114 H Respiratory 33 H 36 H 27 H Rate Blood Pressure 143/80 131/72 131/72 O2 Sat by Pulse 96 97 97 Oximetry 07/24/19 12:30 Temperature Pulse Rate 110 H Respiratory 25 H Rate Blood Pressure 132/70 O2 Sat by Pulse 96 Oximetry - General physical appearance no distress, no pain - Respiratory normal expansion, normal respiratory effort - Integumentary other (erythema on right foot improved.) - Labs 07/24/19 03:34 07/24/19 03:34 Diabetes panel 07/24/19 Range/Units 03:34 Sodium 140 (137-145) mmol/L Potassium 3.3 L (3.6-5.0) mmol/L Chloride 99.3 (98-107) mmol/L Carbon Dioxide 35 H (22-30) mmol/L BUN 15 (7-17) mg/dL Creatinine 0.6 L (0.7-1.2) mg/dL Glucose 139 H (65-100) mg/dL Calcium 7.7 L (8.4-10.2) mg/dL Calcium panel 07/24/19 Range/Units 03:34 Calcium 7.7 L (8.4-10.2) mg/dL Pituitary panel 07/24/19 Range/Units 03:34 Sodium 140 (137-145) mmol/L Potassium 3.3 L (3.6-5.0) mmol/L Chloride 99.3 (98-107) mmol/L Carbon Dioxide 35 H (22-30) mmol/L BUN 15 (7-17) mg/dL Creatinine 0.6 L (0.7-1.2) mg/dL Glucose 139 H (65-100) mg/dL Calcium 7.7 L (8.4-10.2) mg/dL Adrenal panel 07/24/19 Range/Units 03:34 Sodium 140 (137-145) mmol/L Potassium 3.3 L (3.6-5.0) mmol/L Chloride 99.3 (98-107) mmol/L Carbon Dioxide 35 H (22-30) mmol/L BUN 15 (7-17) mg/dL Creatinine 0.6 L (0.7-1.2) mg/dL Glucose 139 H (65-100) mg/dL Calcium 7.7 L (8.4-10.2) mg/dL
--- NOTE | 2019-07-24 16:52 | Progress Note ---
Assessment and Plan - Patient Problems (1) Acute kidney injury (CRISTIAN) with acute tubular necrosis (ATN) Current Visit: Yes Status: Acute Plan to address problem: Kidney function has improved. Follow-up electrolytes and renal function (2) Pyelonephritis, acute Current Visit: Yes Status: Acute Plan to address problem: Continue antibiotics. (3) Hypernatremia Current Visit: Yes Status: Acute Plan to address problem: Hypernatremia: Sodium is now improving. Continue free water replacement orally. (4) Hypokalemia Current Visit: Yes Status: Acute Plan to address problem: Supplement potassium and follow-up level. (5) Acute respiratory failure Current Visit: Yes Status: Acute Plan to address problem: Continue ventilator management (6) Elevated LFTs Current Visit: Yes Status: Acute Plan to address problem: Ischemic Hepatitis. Follow-up liver function tests (7) Septic shock Current Visit: Yes Status: Acute Plan to address problem: Off of Levophed. Concerned about cholecystitis. Pending HIDA scan. Continue antibiotics per infectious disease appropriately adjusted to the degree of renal function (8) Cellulitis of right foot Current Visit: Yes Status: Resolved Plan to address problem: Continue antibiotics (9) Fluid overload Current Visit: Yes Status: Acute Plan to address problem: Diuresing briskly with Bumex and hydrochlorothiazide. Follow up volume status, electrolytes and renal function Subjective Date of service: 07/24/19 Principal diagnosis: Acute respiratory failure Interval history: Patient seen lying in bed. Intubated on ventilator. No Family at bedside. Not following commands. Responding to Lasix/Bumex which risk diuresis. Off of Levophed . FiO2 decreased from 100% to 55% Objective - Exam Narrative Exam: Young female lying in bed intubated on the ventilator before meals 450/26/55% HEENT: NCAT, endotracheal tube intact Neck: Supple, no venous distention CVS: S1S2 RRR with no murmur, rub or gallop Chest: Coarse breath sounds Abdomen: Protuberant, soft, nontender, no organomegaly, bowel sounds are present Extremities: 2+edema improving and dressing intact Neuro: Agitated, intubated on ventilator - Vital Signs Vital signs: Vital Signs - 12hr 07/24/19 07/24/19 07/24/19 05:00 05:15 05:30 Temperature Pulse Rate 120 H 110 H 104 H Respiratory 35 H 28 H 27 H Rate Blood Pressure 124/66 124/66 105/47 O2 Sat by Pulse 97 97 97 Oximetry 07/24/19 07/24/19 07/24/19 05:45 05:47 06:00 Temperature Pulse Rate 104 H 103 H 102 H Respiratory 28 H 27 H Rate Blood Pressure 105/47 105/47 101/46 O2 Sat by Pulse 97 97 97 Oximetry 07/24/19 07/24/19 07/24/19 06:15 06:30 06:45 Temperature Pulse Rate 105 H 101 H 101 H Respiratory 27 H 27 H 29 H Rate Blood Pressure 101/46 98/50 98/50 O2 Sat by Pulse 96 98 97 Oximetry 07/24/19 07/24/19 07/24/19 07:00 07:46 08:00 Temperature 97.8 F Pulse Rate 98 H 108 H 115 H Respiratory 27 H 20 32 H Rate Blood Pressure 104/51 106/51 106/51 O2 Sat by Pulse 97 97 96 Oximetry 07/24/19 07/24/19 07/24/19 08:15 08:30 08:45 Temperature Pulse Rate 110 H 111 H 102 H Respiratory 19 28 H Rate Blood Pressure 106/51 130/61 125/62 O2 Sat by Pulse 93 97 Oximetry 07/24/19 07/24/19 07/24/19 09:00 09:15 09:30 Temperature Pulse Rate 103 H 95 H 97 H Respiratory 26 H 27 H 27 H Rate Blood Pressure 141/112 130/61 101/52 O2 Sat by Pulse 98 96 95 Oximetry 07/24/19 07/24/19 07/24/19 09:45 10:00 10:15 Temperature Pulse Rate 94 H 92 H 89 Respiratory 28 H 27 H 26 H Rate Blood Pressure 101/52 100/46 100/46 O2 Sat by Pulse 94 94 94 Oximetry 07/24/19 07/24/19 07/24/19 10:30 10:45 11:00 Temperature Pulse Rate 89 92 H 114 H Respiratory 27 H 28 H 34 H Rate Blood Pressure 105/56 105/56 138/72 O2 Sat by Pulse 97 99 90 Oximetry 07/24/19 07/24/19 07/24/19 11:15 11:29 11:31 Temperature Pulse Rate 101 H 117 H 119 H Respiratory 26 H 36 H Rate Blood Pressure 138/72 143/80 143/80 O2 Sat by Pulse 96 93 94 Oximetry 07/24/19 07/24/19 07/24/19 11:45 12:00 12:15 Temperature 97.8 F Pulse Rate 114 H 114 H 114 H Respiratory 33 H 36 H 27 H Rate Blood Pressure 143/80 131/72 131/72 O2 Sat by Pulse 96 97 97 Oximetry 07/24/19 07/24/19 07/24/19 12:30 12:45 13:00 Temperature Pulse Rate 110 H 112 H 116 H Respiratory 25 H 30 H 24 Rate Blood Pressure 132/70 132/70 139/77 O2 Sat by Pulse 96 96 96 Oximetry 07/24/19 07/24/19 07/24/19 13:15 13:30 13:45 Temperature Pulse Rate 117 H 118 H 117 H Respiratory 35 H 36 H 31 H Rate Blood Pressure 139/77 138/72 138/72 O2 Sat by Pulse 96 96 96 Oximetry 07/24/19 07/24/19 14:01 15:30 Temperature Pulse Rate 122 H 113 H Respiratory 32 H Rate Blood Pressure 136/91 134/31 O2 Sat by Pulse 98 100 Oximetry - Lab 07/24/19 03:34 07/24/19 03:34 Most recent lab results ABG pH 7.457 pH Units (7.350-7.450) H 07/24/19 04:50 ABG pCO2 46.5 mm Hg 07/24/19 04:50 ABG pO2 138.3 mm Hg (80.0-90.0) H 07/24/19 04:50 ABG HCO3 32.1 mmol/L (20.0-26.0) H 07/24/19 04:50 ABG O2 Saturation 98.7 % (95.0-99.0) 07/24/19 04:50 Calcium 7.7 mg/dL (8.4-10.2) L 07/24/19 03:34 Phosphorus 1.60 mg/dL (2.5-4.5) L 07/21/19 05:00 Magnesium 1.50 mg/dL (1.7-2.3) L 07/23/19 04:50 76.6 mg/dL (0.1-20.0) H 07/16/19 14:30 39 mmol/L 07/16/19 14:30 Medications & Allergies - Medications Allergies/Adverse Reactions: Allergies latex Allergy (Verified 07/28/19 17:11) Anaphylaxis tramadol [From Ultram] Allergy (Verified 06/28/19 17:10) Unknown haloperidol [From Haldol] Adverse Reaction (Verified 07/17/19 05:55) Shortness of Breath agitation/combative ketorolac [From Toradol] Adverse Reaction (Verified 06/28/19 17:10) Seizure prochlorperazine [From Compazine] Adverse Reaction (Verified 06/28/19 17:11) Unknown Home Medications: Home Medications Medication Instructions Recorded Confirmed Last Taken Type No Known Home Medications [No 07/16/19 07/16/19 Unknown History Reported Home Medications] Active Medications: Generic Name Dose Route Start Last Admin Trade Name Freq PRN Reason Stop Dose Admin Acetaminophen 650 mg 07/16/19 05:36 07/24/19 03:12 Tylenol PO 650 mg Q4H PRN Administration Pain MILD(1-3)/Fever >100.5/WHALEN Albuterol 2.5 mg 07/16/19 22:48 07/16/19 23:01 Proventil IH 2.5 mg Q4HRT PRN Administration Shortness Of Breath Lipase/Protease/Amylase 1 each 07/18/19 14:[address] 10,500 Unit FEEDTUBE PRN PRN For Clogged Feeding Tube Bumetanide 1 mg 07/24/19 10:00 07/24/19 10:28 Bumex IV 1 mg DAILY KASIE Administration Dextrose 50 ml 07/17/19 03:17 07/17/19 05:30 D50w (25gm) Syringe IV 50 ml PRN PRN Administration Hypoglycemia Enoxaparin Sodium 40 mg 07/20/19 10:00 07/24/19 10:27 Lovenox SUB-Q 40 mg QDAY@1000 KASIE Administration Famotidine 20 mg 07/20/19 10:00 07/24/19 10:28 Pepcid PO 20 mg BID KASIE Administration Fentanyl 50 mcg 07/17/19 03:18 07/17/19 04:53 Sublimaze IV 50 mcg Q10MIN PRN Administration ANALGESIA Hydrochlorothiazide 25 mg 07/23/19 10:00 07/24/19 10:27 Hctz PO 25 mg QDAY KASIE Administration Hydromorphone HCl 0.25 mg 07/16/19 05:36 07/21/19 01:07 Dilaudid IV 0.25 mg Q3H PRN Administration Pain, Moderate (4-6) Hydrophilic Ointment 1 applic 07/17/19 03:18 Vaseline Lip Therapy TP Q2HR PRN Dry Lips Vasopressin 20 unit/ Sodium 101 mls @ 9.09 mls/hr 07/16/19 20:00 07/20/19 10:56 Chloride IV Infused TITR KASIE Titration Protocol 0.03 UNITS/MIN Midazolam HCl 100 mg/ Sodium 100 mls @ 2 mls/hr 07/17/19 04:00 07/23/19 15:34 Chloride IV 1 mg/hr TITR KASIE 1 mls/hr Titration Protocol 2 MG/HR Fentanyl Citrate 2,000 mcg in 100 mls @ 3.4 mls/hr 07/17/19 04:00 07/23/19 11:57 Fentanyl Drip Premix IV 1 mcg/kg/hr TITR KASIE 3.4 mls/hr Titration Protocol 1 MCG/KG/HR Phenylephrine HCl 100 mg/ 100 mls @ 3 mls/hr 07/17/19 09:30 07/18/19 15:50 Sodium Chloride IV 0 mcg/min TITR KASEI 0 mls/hr Titration Protocol 50 MCG/MIN Ceftriaxone Sodium 2 gm in 100 mls @ 200 mls/hr 07/20/19 13:00 07/24/19 10:26 Rocephin/Ns 2 Gm/100 Ml IV 200 mls/hr Q24HR KASIE Administration Protocol Vancomycin HCl 1 gm in 250 mls @ 167.007 mls/hr 07/20/19 22:00 07/24/19 10:27 Vancomycin/Ns 1 Gm/250 Ml IV 167.007 mls/hr Q12HR KASIE Administration Metronidazole 500 mg in 100 mls @ 100 mls/hr 07/21/19 15:00 07/24/19 13:46 Flagyl 500 Mg/100 Ml IV 100 mls/hr Q8HR KASIE Administration Protocol Norepinephrine 4 mg in 250 mls @ 7.5 mls/hr 07/22/19 09:00 07/23/19 02:30 Levophed Drip 4 Mg/Ns 250 Ml IV 0 mcg/min TITR KASIE 0 mls/hr Titration Protocol 2 MCG/MIN Midazolam HCl 2 mg 07/17/19 03:18 07/20/19 23:32 Versed IV 2 mg Q10MIN PRN Administration Sedation Multi-Ingred Cream/Lotion/Oil/Oint 1 applic 07/17/19 03:18 Artificial Tears Ophth Oint OU Q4HR PRN Dry Eye(s) Nicotine 14 mg 07/16/19 10:00 07/24/19 10:27 Habitrol TD 14 mg QDAY KASIE Administration Ondansetron HCl 4 mg 07/16/19 05:36 07/16/19 21:16 Zofran IV 4 mg Q8H PRN Administration Nausea And Vomiting Oxycodone/Acetaminophen 1 tab 07/16/19 05:36 07/16/19 12:33 Percocet 5/325 PO 1 tab Q6H PRN Administration Pain, Moderate (4-6) Simple Syrup 15 ml 07/18/19 14:34 Simple Syrup FEEDTUBE PRN PRN Hypoglycemia Simple Syrup 30 ml 07/18/19 14:34 Simple Syrup FEEDTUBE PRN PRN Hypoglycemia Sodium Bicarbonate 325 mg 07/18/19 14:34 Sodium Bicarbonate FEEDTUBE PRN PRN For Clogged Feeding Tube Sodium Chloride 10 ml 07/16/19 10:00 07/24/19 10:29 Sodium Chloride Flush Syringe 10 Ml IV 10 ml BID KASIE Administration Sodium Chloride 10 ml 07/16/19 05:36 Sodium Chloride Flush Syringe 10 Ml IV PRN PRN LINE FLUSH
[2019-07-24] MEDS: fentaNYL DRIP Premix 2,000 MCG/100 ML BAG IV SCH (20:55)
[2019-07-25] MEDS: FREE WATER PO SCH ×6 (00:56→21:10)
[2019-07-25] MEDS: MIDAZOLAM 100 MG in NACL 0.9% 80 ML IV SCH (01:12)
[2019-07-25 04:46] LABS: Basophils # (Auto) 0.1 K/mm3 (0.0-0.1); Basophils % (Auto) 0.5 % (0.0-1.8); Eosinophils # (Auto) 0.2 K/mm3 (0.0-0.4); Eosinophils % (Auto) 1.7 % (0.0-4.3); Hematocrit 27.7 % (30.3-42.9); Hemoglobin 9.3 gm/dl (10.1-14.3); Lymphocytes # (Auto) 1.8 K/mm3 (1.2-5.4); Lymphocytes % (Auto) 14.5 % (13.4-35.0); Mean Corpuscular HGB Conc 34 % (30-34); Mean Corpuscular Volume 89 fl (79-97); Monocytes # (Auto) 0.8 K/mm3 (0.0-0.8); Monocytes % (Auto) 6.1 % (0.0-7.3); Platelet Count 146 K/mm3 (140-440); Red Blood Count 3.13 M/mm3 (3.65-5.03); Red Cell Distribution Width 14.5 % (13.2-15.2)
[2019-07-25 05:11] LABS: Alanine Aminotransferase 13 units/L (7-56); Albumin 1.4 g/dL (3.9-5); BUN/Creatinine Ratio 23; Blood Urea Nitrogen 14 mg/dL (7-17); Calcium 7.5 mg/dL (8.4-10.2); Hemolysis Index 3
[2019-07-25 05:50] LABS: ABG Base Excess 7.9 mmol/L (-2.0-3.0); ABG HCO3 33.6 mmol/L (20.0-26.0); ABG Methemoglobin 0.6 % (0.0-1.5); ABG Oxygen Saturation 92.8 % (95.0-99.0); ABG PCO2 51.9 mm Hg; ABG PH 7.429 pH Units (7.350-7.450); ABG PO2 65.7 mm Hg (80.0-90.0)
[2019-07-25] MEDS: FLAGYL 500 MG/100 ML 500 MG/100 ML BAG IV SCH ×3 (06:29→22:39)
[2019-07-25] MEDS ORDERED: K-DUR PO ONE (07:04)
[2019-07-25] MEDS: fentaNYL DRIP Premix 2,000 MCG/100 ML BAG IV SCH ×2 (08:04→16:10)
[2019-07-25] MEDS: TYLENOL PO PRN (08:16)
[2019-07-25] MEDS: PEPCID PO SCH ×2 (09:58→22:39)
[2019-07-25] MEDS: HCTZ PO SCH (09:58)
[2019-07-25] MEDS: HABITROL TD SCH (09:58)
[2019-07-25] MEDS: VANCOMYCIN/NS 1 GM/250 ML 1 GM/250 ML BAG IV SCH ×2 (09:59→22:39)
[2019-07-25] MEDS: LOVENOX SUB-Q SCH (09:59)
[2019-07-25] MEDS: BUMEX IV SCH (09:59)
[2019-07-25] MEDS: SODIUM CHLORIDE FLUSH SYRINGE 10 ML IV SCH ×2 (10:00→22:40)
[2019-07-25] MEDS: ROCEPHIN/NS 2 GM/100 ML 2 GM/100 ML BAG IV SCH (10:36)
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
--- NOTE | 2019-07-25 11:19 | Progress Note ---
Assessment and Plan - Patient Problems (1) Acute kidney injury (CRISTIAN) with acute tubular necrosis (ATN) Current Visit: Yes Status: Acute Plan to address problem: Kidney function has improved. Follow-up electrolytes and renal function (2) Fluid overload Current Visit: Yes Status: Acute Plan to address problem: Diuresing briskly with Bumex and hydrochlorothiazide. Follow up volume status, electrolytes and renal function (3) Hypernatremia Current Visit: Yes Status: Acute Plan to address problem: Hypernatremia: Sodium is now improving. Continue free water replacement orally. (4) Pyelonephritis, acute Current Visit: Yes Status: Acute Plan to address problem: Continue antibiotics. (5) Hypokalemia Current Visit: Yes Status: Acute Plan to address problem: Supplement potassium and follow-up level. (6) Acute respiratory failure Current Visit: Yes Status: Acute Plan to address problem: Continue ventilator management (7) Elevated LFTs Current Visit: Yes Status: Acute Plan to address problem: Ischemic Hepatitis. Follow-up liver function tests (8) Septic shock Current Visit: Yes Status: Acute Plan to address problem: Off of Levophed. Concerned about cholecystitis. Pending HIDA scan. Continue antibiotics per infectious disease appropriately adjusted to the degree of renal function (9) Cellulitis of right foot Current Visit: Yes Status: Resolved Plan to address problem: Continue antibiotics Subjective Date of service: 07/25/19 Principal diagnosis: Acute respiratory failure Interval history: Patient seen lying in bed. Intubated on ventilator. No Family at bedside. Not following commands. Responding to Bumex with brisk diuresis. 3.2 L urine output yesterday. Still off of Levophed . FiO2 55% Objective - Exam Narrative Exam: Young female lying in bed intubated on the ventilator before meals 450/26/55% HEENT: NCAT, endotracheal tube intact Neck: Supple, no venous distention CVS: S1S2 RRR with no murmur, rub or gallop Chest: Coarse breath sounds Abdomen: Protuberant, soft, nontender, no organomegaly, bowel sounds are present Extremities: 2+edema improving and dressing intact Neuro: Less agitated's morning, intubated on ventilator - Vital Signs Vital signs: Vital Signs - 12hr 07/24/19 07/24/19 07/25/19 23:30 23:45 00:00 Temperature Pulse Rate 104 H 102 H 102 H Pulse Rate [ 102 H From Monitor] Respiratory 27 H 27 H 28 H Rate Blood Pressure 117/55 117/55 123/56 O2 Sat by Pulse 96 96 96 Oximetry 07/25/19 07/25/19 07/25/19 00:15 00:17 00:30 Temperature Pulse Rate 103 H 103 H 103 H Pulse Rate [ From Monitor] Respiratory 28 H 29 H Rate Blood Pressure 123/56 123/56 121/55 O2 Sat by Pulse 96 96 95 Oximetry 07/25/19 07/25/19 07/25/19 00:45 01:00 01:15 Temperature Pulse Rate 111 H 104 H 106 H Pulse Rate [ From Monitor] Respiratory 29 H 29 H 27 H Rate Blood Pressure 117/55 116/56 116/56 O2 Sat by Pulse 96 96 97 Oximetry 07/25/19 07/25/19 07/25/19 01:30 01:45 02:00 Temperature Pulse Rate 105 H 102 H 100 H Pulse Rate [ From Monitor] Respiratory 28 H 24 25 H Rate Blood Pressure 117/53 117/53 112/54 O2 Sat by Pulse 96 96 96 Oximetry 07/25/19 07/25/19 07/25/19 02:15 02:30 02:45 Temperature Pulse Rate 106 H 102 H 105 H Pulse Rate [ From Monitor] Respiratory 20 24 27 H Rate Blood Pressure 112/54 119/56 119/56 O2 Sat by Pulse 96 97 98 Oximetry 07/25/19 07/25/19 07/25/19 03:00 03:06 03:15 Temperature 98.5 F Pulse Rate 106 H 104 H Pulse Rate [ From Monitor] Respiratory 25 H 25 H Rate Blood Pressure 119/59 119/56 O2 Sat by Pulse 97 98 Oximetry 07/25/19 07/25/19 07/25/19 03:30 03:45 04:00 Temperature Pulse Rate 102 H 102 H 103 H Pulse Rate [ 105 H From Monitor] Respiratory 18 22 18 Rate Blood Pressure 119/57 119/59 122/56 O2 Sat by Pulse 98 98 97 Oximetry 07/25/19 07/25/19 07/25/19 04:15 04:30 04:45 Temperature Pulse Rate 105 H 104 H 102 H Pulse Rate [ From Monitor] Respiratory 17 22 25 H Rate Blood Pressure 122/56 119/57 119/57 O2 Sat by Pulse 98 98 98 Oximetry 07/25/19 07/25/19 07/25/19 05:00 05:15 05:21 Temperature Pulse Rate 105 H 105 H 105 H Pulse Rate [ From Monitor] Respiratory 28 H 28 H Rate Blood Pressure 126/65 119/57 123/65 O2 Sat by Pulse 98 99 99 Oximetry 07/25/19 07/25/19 07/25/19 05:30 05:45 06:00 Temperature Pulse Rate 110 H 108 H 107 H Pulse Rate [ From Monitor] Respiratory 19 27 H 27 H Rate Blood Pressure 133/65 133/65 131/59 O2 Sat by Pulse 97 98 98 Oximetry 07/25/19 07/25/19 07/25/19 06:15 06:30 06:45 Temperature Pulse Rate 108 H 106 H 107 H Pulse Rate [ From Monitor] Respiratory 29 H 24 26 H Rate Blood Pressure 131/59 125/57 125/57 O2 Sat by Pulse 97 97 97 Oximetry 07/25/19 07/25/19 07/25/19 07:00 07:15 07:30 Temperature Pulse Rate 105 H 104 H 104 H Pulse Rate [ From Monitor] Respiratory 26 H 24 22 Rate Blood Pressure 125/60 125/60 123/55 O2 Sat by Pulse 98 96 96 Oximetry 07/25/19 07/25/19 07/25/19 07:45 08:00 08:15 Temperature 101.7 F H Pulse Rate 104 H 100 H 105 H Pulse Rate [ 110 H From Monitor] Respiratory 19 24 23 Rate Blood Pressure 123/55 114/52 117/57 O2 Sat by Pulse 96 99 97 Oximetry 07/25/19 07/25/19 07/25/19 08:16 08:30 08:45 Temperature Pulse Rate 110 H 104 H Pulse Rate [ From Monitor] Respiratory 26 H 18 18 Rate Blood Pressure 127/61 127/61 O2 Sat by Pulse 96 96 Oximetry 07/25/19 07/25/19 07/25/19 09:00 09:15 09:30 Temperature Pulse Rate 99 H 114 H 95 H Pulse Rate [ From Monitor] Respiratory 26 H 19 26 H Rate Blood Pressure 114/52 114/52 111/48 O2 Sat by Pulse 96 96 97 Oximetry 07/25/19 07/25/19 07/25/19 09:45 10:00 10:15 Temperature Pulse Rate 102 H 106 H 99 H Pulse Rate [ From Monitor] Respiratory 19 13 26 H Rate Blood Pressure 111/48 110/54 110/54 O2 Sat by Pulse 98 96 97 Oximetry - Lab 07/25/19 04:09 07/25/19 04:09 Most recent lab results ABG pH 7.429 pH Units (7.350-7.450) 07/25/19 05:29 ABG pCO2 51.9 mm Hg 07/25/19 05:29 ABG pO2 65.7 mm Hg (80.0-90.0) L 07/25/19 05:29 ABG HCO3 33.6 mmol/L (20.0-26.0) H 07/25/19 05:29 ABG O2 Saturation 92.8 % (95.0-99.0) L 07/25/19 05:29 Calcium 7.5 mg/dL (8.4-10.2) L 07/25/19 04:09 Phosphorus 1.60 mg/dL (2.5-4.5) L 07/21/19 05:00 Magnesium 1.50 mg/dL (1.7-2.3) L 07/23/19 04:50 76.6 mg/dL (0.1-20.0) H 07/16/19 14:30 39 mmol/L 07/16/19 14:30 Medications & Allergies - Medications Allergies/Adverse Reactions: Allergies latex Allergy (Verified 06/28/19 17:11) Anaphylaxis tramadol [From Ultram] Allergy (Verified 06/28/19 17:10) Unknown haloperidol [From Haldol] Adverse Reaction (Verified 07/17/19 05:55) Shortness of Breath agitation/combative ketorolac [From Toradol] Adverse Reaction (Verified 06/28/19 17:10) Seizure prochlorperazine [From Compazine] Adverse Reaction (Verified 06/28/19 17:11) Unknown Home Medications: Home Medications Medication Instructions Recorded Confirmed Last Taken Type No Known Home Medications [No 07/16/19 07/16/19 Unknown History Reported Home Medications] Active Medications: Generic Name Dose Route Start Last Admin Trade Name Freq PRN Reason Stop Dose Admin Acetaminophen 650 mg 07/16/19 05:36 07/25/19 08:16 Tylenol PO 650 mg Q4H PRN Administration Pain MILD(1-3)/Fever >100.5/WHALEN Albuterol 2.5 mg 07/16/19 22:48 07/16/19 23:01 Proventil IH 2.5 mg Q4HRT PRN Administration Shortness Of Breath Lipase/Protease/Amylase 1 each 07/18/19 14:34 Pancrenicolás Thomas 10,500 Unit FEEDTUBE PRN PRN For Clogged Feeding Tube Bumetanide 1 mg 07/24/19 10:00 07/25/19 09:59 Bumex IV 1 mg DAILY KASIE Administration Dextrose 50 ml 07/17/19 03:17 07/17/19 05:30 D50w (25gm) Syringe IV 50 ml PRN PRN Administration Hypoglycemia Enoxaparin Sodium 40 mg 07/20/19 10:00 07/25/19 09:59 Lovenox SUB-Q 40 mg QDAY@1000 KASIE Administration Famotidine 20 mg 07/20/19 10:00 07/25/19 09:58 Pepcid PO 20 mg BID KASIE Administration Fentanyl 50 mcg 07/17/19 03:18 07/17/19 04:53 Sublimaze IV 50 mcg Q10MIN PRN Administration ANALGESIA Hydrochlorothiazide 25 mg 07/23/19 10:00 07/25/19 09:58 Hctz PO 25 mg QDAY KASIE Administration Hydromorphone HCl 0.25 mg 07/16/19 05:36 07/21/19 01:07 Dilaudid IV 0.25 mg Q3H PRN Administration Pain, Moderate (4-6) Hydrophilic Ointment 1 applic 07/17/19 03:18 Vaseline Lip Therapy TP Q2HR PRN Dry Lips Vasopressin 20 unit/ Sodium 101 mls @ 9.09 mls/hr 07/16/19 20:00 07/20/19 10:56 Chloride IV Infused TITR KASIE Titration Protocol 0.03 UNITS/MIN Midazolam HCl 100 mg/ Sodium 100 mls @ 2 mls/hr 07/17/19 04:00 07/25/19 07:59 Chloride IV 0 mg/hr TITR KASIE 0 mls/hr Titration Protocol 2 MG/HR Fentanyl Citrate 2,000 mcg in 100 mls @ 3.4 mls/hr 07/17/19 04:00 07/25/19 08:04 Fentanyl Drip Premix IV 3 mcg/kg/hr TITR KASIE 10.2 mls/hr Administration Protocol 1 MCG/KG/HR Phenylephrine HCl 100 mg/ 100 mls @ 3 mls/hr 07/17/19 09:30 07/18/19 15:50 Sodium Chloride IV 0 mcg/min TITR KASIE 0 mls/hr Titration Protocol 50 MCG/MIN Ceftriaxone Sodium 2 gm in 100 mls @ 200 mls/hr 07/20/19 13:00 07/25/19 10:36 Rocephin/Ns 2 Gm/100 Ml IV 200 mls/hr Q24HR KASIE Administration Protocol Vancomycin HCl 1 gm in 250 mls @ 167.007 mls/hr 07/20/19 22:00 07/25/19 09:59 Vancomycin/Ns 1 Gm/250 Ml IV 167.007 mls/hr Q12HR KASIE Administration Metronidazole 500 mg in 100 mls @ 100 mls/hr 07/21/19 15:00 07/25/19 06:29 Flagyl 500 Mg/100 Ml IV 100 mls/hr Q8HR KASIE Administration Protocol Norepinephrine 4 mg in 250 mls @ 7.5 mls/hr 07/22/19 09:00 07/23/19 02:30 Levophed Drip 4 Mg/Ns 250 Ml IV 0 mcg/min TITR KASIE 0 mls/hr Titration Protocol 2 MCG/MIN Midazolam HCl 2 mg 07/17/19 03:18 07/20/19 23:32 Versed IV 2 mg Q10MIN PRN Administration Sedation Multi-Ingred Cream/Lotion/Oil/Oint 1 applic 07/17/19 03:18 Artificial Tears Ophth Oint OU Q4HR PRN Dry Eye(s) Nicotine 14 mg 07/16/19 10:00 07/25/19 09:58 Habitrol TD 14 mg QDAY KASIE Administration Ondansetron HCl 4 mg 07/16/19 05:36 07/16/19 21:16 Zofran IV 4 mg Q8H PRN Administration Nausea And Vomiting Oxycodone/Acetaminophen 1 tab 07/16/19 05:36 07/16/19 12:33 Percocet 5/325 PO 1 tab Q6H PRN Administration Pain, Moderate (4-6) Simple Syrup 15 ml 07/18/19 14:34 Simple Syrup FEEDTUBE PRN PRN Hypoglycemia Simple Syrup 30 ml 07/18/19 14:34 Simple Syrup FEEDTUBE PRN PRN Hypoglycemia Sodium Bicarbonate 325 mg 07/18/19 14:34 Sodium Bicarbonate FEEDTUBE PRN PRN For Clogged Feeding Tube Sodium Chloride 10 ml 07/16/19 10:00 07/25/19 10:00 Sodium Chloride Flush Syringe 10 Ml IV 10 ml BID KASIE Administration Sodium Chloride 10 ml 07/16/19 05:36 Sodium Chloride Flush Syringe 10 Ml IV PRN PRN LINE FLUSH
--- NOTE | 2019-07-25 13:56 | Progress Note ---
Assessment and Plan /Acute hypoxic respiratory failure; requiring intubation - ARDS Likely from severe sepsis Continue ventilatory support , nebulizers, supportive care Pulmonary critical following, wean as tolerated Requiring high FiO2 to maintain oxygen saturation - on 55% today / Severe sepsis with Septic shock and organ failure/right foot infection/pyelonephritis/bacreremia Secondary to pyelonephritis and Escherichia coli bacteremia. weaned off pressor, Continue abs per ID, /E.coli bacteremia, likely source from pyelonephritis There is also concern for cholecystitis- general surgery following -HIDA scan ordered but pending /Transaminitis - Could be from severe sepsis versus possible underlying cholecystitis - trending down LFTs, s/p HIDA scan showed normal study - hepatitis panel showed / Acute pyelonephritis To be improving. Decreased leukocytosis. She remains extremely ill. Remains on pressors Overall prognosis remains poor especially with the new diagnosis of ARDS / Cellulitis of right foot, on abx /Acute renal failure due to ATN from severe sepsis Creatinine was 2.2 on admission monitor renal function, Cr now stable / Malnutrition Nutrition corrected by NG tube feedings. Nutrition following /Electrolyte imbalance Hyponatremia -manage with free water with tube feeding Hypokalemia - continue to replete as needed and continue to monitor BMP Hypomagnesemia - replete as needed, continue to follow The high probability of a clinically significant, sudden or life threatening deterioration of the [pulmonary, renal, infectious, metabolic] system(s) required my full and direct attention, intervention and personal management. The aggregate critical care time was [35] minutes. This time is in addition to time spent performing reported procedures but includes the following: [X] Data Review and interpretation [X] Patient assessment and monitoring of vital signs [x] Documentation [x] Medication orders and management Brief history The patient is a 44-year-old female with bipolar disorder presented to the emergency room with right foot pain, abdominal pain and fevers. She previously presented to the emergency room on 06/28/2019 with right foot with redness and pain following a possible spider bite. She was given a prescription for oral Augmentin and was discharged home. Patient stated that she was compliant with Augmentin and also was soaking her right foot in Epsom salts. About 2-3 days prior to admission, she started developing fevers, nausea as well as worsening abdominal pain. She has presented to the emergency room and was hospitalized. She was noted to be septic,Started on empiric antibiotics. She decompensated on the floor and required intubation and transferred to ICU for further management on 07/17/2019. Also requiring pressors for septic shock, blood culture growing Escherichia coli bacteremia. There is also concern for acute cholecystitis - HIDA scan ordered but pending as patient is not clinically stable to obtain the test. Radiological data: CT abdomen/pelvis: 1. Mild nonspecific left-sided perinephric stranding in this patient with punctate bilateral nonobstructive nephrolithiasis. No asymmetric hydronephrosis or ureteral stone disease. 2. Complex cyst versus mass in the left ovary. Recommend nonemergent follow-up pelvic ultrasound. 3. Mild periportal edema could be related to aggressive hydration therapy. 4. Other incidental findings as outlined above on this limited noncontrast exam with mild motion artifact. Of note, there is a 5 mm nodule in the right middle lobe. Please see below recommendations. Abdomen ultrasound: 1. No gallstones, but the gallbladder wall is thickened and edematous. 2. Small bilateral pleural effusions. Hospitalist Physical General appearance: Present: no acute distress, well-nourished, other (intubated on ventilatory support and sedated) - EENT Eyes: Present: PERRL, EOM intact - Neck Neck: Present: supple, normal ROM - Respiratory Respiratory effort: labored Respiratory: bilateral: diminished, rhonchi, negative: rales, wheezing - Cardiovascular Rhythm: regular Heart Sounds: Present: S1 & S2 - Extremities Extremities: no ischemia, abnormal (cellulites lower extremity) Extremity abnormal: edema - Abdominal General gastrointestinal: soft, non-tender, non-distended, normal bowel sounds - Integumentary Integumentary: Present: clear, warm - Psychiatric Psychiatric: other (intubated on vent) - Neurologic Neurologic: other (intubated on vent) Subjective Date of service: 07/25/19 Principal diagnosis: Acute respiratory failure Interval history: Patient seen and examined Remain intubated with high FiO2 - trended down to 55% FiO2 off pressor support, s/p HIDA scan today Tolerating tube feeding Objective - Constitutional Vitals: Vital Signs - 12hr 07/25/19 07/25/19 07/25/19 02:00 02:15 02:30 Temperature Pulse Rate 100 H 106 H 102 H Pulse Rate [ From Monitor] Respiratory 25 H 20 24 Rate Blood Pressure 112/54 112/54 119/56 O2 Sat by Pulse 96 96 97 Oximetry 07/25/19 07/25/19 07/25/19 02:45 03:00 03:06 Temperature 98.5 F Pulse Rate 105 H 106 H Pulse Rate [ From Monitor] Respiratory 27 H 25 H Rate Blood Pressure 119/56 119/59 O2 Sat by Pulse 98 97 Oximetry 07/25/19 07/25/19 07/25/19 03:15 03:30 03:45 Temperature Pulse Rate 104 H 102 H 102 H Pulse Rate [ From Monitor] Respiratory 25 H 18 22 Rate Blood Pressure 119/56 119/57 119/59 O2 Sat by Pulse 98 98 98 Oximetry 07/25/19 07/25/19 07/25/19 04:00 04:15 04:30 Temperature Pulse Rate 103 H 105 H 104 H Pulse Rate [ 105 H From Monitor] Respiratory 18 17 22 Rate Blood Pressure 122/56 122/56 119/57 O2 Sat by Pulse 97 98 98 Oximetry 07/25/19 07/25/19 07/25/19 04:45 05:00 05:15 Temperature Pulse Rate 102 H 105 H 105 H Pulse Rate [ From Monitor] Respiratory 25 H 28 H 28 H Rate Blood Pressure 119/57 126/65 119/57 O2 Sat by Pulse 98 98 99 Oximetry 07/25/19 07/25/19 07/25/19 05:21 05:30 05:45 Temperature Pulse Rate 105 H 110 H 108 H Pulse Rate [ From Monitor] Respiratory 19 27 H Rate Blood Pressure 123/65 133/65 133/65 O2 Sat by Pulse 99 97 98 Oximetry 07/25/19 07/25/19 07/25/19 06:00 06:15 06:30 Temperature Pulse Rate 107 H 108 H 106 H Pulse Rate [ From Monitor] Respiratory 27 H 29 H 24 Rate Blood Pressure 131/59 131/59 125/57 O2 Sat by Pulse 98 97 97 Oximetry 07/25/19 07/25/19 07/25/19 06:45 07:00 07:15 Temperature Pulse Rate 107 H 105 H 104 H Pulse Rate [ From Monitor] Respiratory 26 H 26 H 24 Rate Blood Pressure 125/57 125/60 125/60 O2 Sat by Pulse 97 98 96 Oximetry 07/25/19 07/25/19 07/25/19 07:30 07:45 08:00 Temperature 101.7 F H Pulse Rate 104 H 104 H 100 H Pulse Rate [ 110 H From Monitor] Respiratory 22 19 24 Rate Blood Pressure 123/55 123/55 114/52 O2 Sat by Pulse 96 96 99 Oximetry 07/25/19 07/25/19 07/25/19 08:15 08:16 08:30 Temperature Pulse Rate 105 H 110 H Pulse Rate [ From Monitor] Respiratory 23 26 H 18 Rate Blood Pressure 117/57 127/61 O2 Sat by Pulse 97 96 Oximetry 07/25/19 07/25/19 07/25/19 08:45 09:00 09:15 Temperature Pulse Rate 104 H 99 H 114 H Pulse Rate [ From Monitor] Respiratory 18 26 H 19 Rate Blood Pressure 127/61 114/52 114/52 O2 Sat by Pulse 96 96 96 Oximetry 07/25/19 07/25/19 07/25/19 09:30 09:45 10:00 Temperature Pulse Rate 95 H 102 H 106 H Pulse Rate [ From Monitor] Respiratory 26 H 19 13 Rate Blood Pressure 111/48 111/48 110/54 O2 Sat by Pulse 97 98 96 Oximetry 07/25/19 07/25/19 07/25/19 10:15 10:30 10:45 Temperature Pulse Rate 99 H 98 H 96 H Pulse Rate [ From Monitor] Respiratory 26 H 26 H 26 H Rate Blood Pressure 110/54 112/57 112/57 O2 Sat by Pulse 97 96 96 Oximetry 07/25/19 07/25/19 07/25/19 11:00 11:15 11:30 Temperature Pulse Rate 98 H 100 H 100 H Pulse Rate [ From Monitor] Respiratory 26 H 26 H 26 H Rate Blood Pressure 113/54 113/54 116/58 O2 Sat by Pulse 96 97 97 Oximetry 07/25/19 07/25/19 07/25/19 11:45 12:00 12:15 Temperature 99.6 F Pulse Rate 97 H 103 H 101 H Pulse Rate [ 100 H From Monitor] Respiratory 26 H 17 26 H Rate Blood Pressure 116/58 125/61 125/61 O2 Sat by Pulse 97 97 97 Oximetry 07/25/19 07/25/19 07/25/19 12:30 12:39 12:45 Temperature 99.6 F Pulse Rate 98 H 104 H Pulse Rate [ From Monitor] Respiratory 26 H 26 H Rate Blood Pressure 104/54 104/54 O2 Sat by Pulse 96 98 Oximetry 07/25/19 07/25/19 07/25/19 13:00 13:15 13:30 Temperature Pulse Rate 101 H 98 H 104 H Pulse Rate [ From Monitor] Respiratory 26 H 26 H 22 Rate Blood Pressure 111/61 111/61 114/64 O2 Sat by Pulse 96 Oximetry 07/25/19 13:45 Temperature Pulse Rate 98 H Pulse Rate [ From Monitor] Respiratory 26 H Rate Blood Pressure 114/64 O2 Sat by Pulse Oximetry - Labs CBC & Chem 7: 07/26/19 05:00 07/26/19 05:00 Labs: Abnormal lab results 07/24/19 07/24/19 07/25/19 Range/Units 17:50 23:39 04:09 WBC 12.5 H (4.5-11.0) K/mm3 RBC 3.13 L (3.65-5.03) M/mm3 Hgb 9.3 L (10.1-14.3) gm/dl Hct 27.7 L (30.3-42.9) % Seg Neutrophils % 77.2 H (40.0-70.0) % Seg Neutrophils # 9.6 H (1.8-7.7) K/mm3 ABG pO2 (80.0-90.0) mm Hg ABG HCO3 (20.0-26.0) mmol/L ABG O2 Saturation (95.0-99.0) % ABG Base Excess (-2.0-3.0) mmol/L ABG Hemoglobin (12.0-16.0) gm/dl Oxyhemoglobin (95.0-99.0) % Potassium (3.6-5.0) mmol/L Carbon Dioxide (22-30) mmol/L Creatinine (0.7-1.2) mg/dL Glucose (65-100) mg/dL POC Glucose 125 H 144 H (70-105) Calcium (8.4-10.2) mg/dL Total Bilirubin (0.1-1.2) mg/dL Total Protein (6.3-8.2) g/dL Albumin (3.9-5) g/dL 07/25/19 07/25/19 07/25/19 Range/Units 04:09 05:12 05:29 WBC (4.5-11.0) K/mm3 RBC (3.65-5.03) M/mm3 Hgb (10.1-14.3) gm/dl Hct (30.3-42.9) % Seg Neutrophils % (40.0-70.0) % Seg Neutrophils # (1.8-7.7) K/mm3 ABG pO2 65.7 L (80.0-90.0) mm Hg ABG HCO3 33.6 H (20.0-26.0) mmol/L ABG O2 Saturation 92.8 L (95.0-99.0) % ABG Base Excess 7.9 H (-2.0-3.0) mmol/L ABG Hemoglobin 11.9 L (12.0-16.0) gm/dl Oxyhemoglobin 90.7 L (95.0-99.0) % Potassium 3.1 L (3.6-5.0) mmol/L Carbon Dioxide 34 H (22-30) mmol/L Creatinine 0.6 L (0.7-1.2) mg/dL Glucose 159 H (65-100) mg/dL POC Glucose 168 H (70-105) Calcium 7.5 L (8.4-10.2) mg/dL Total Bilirubin 1.30 H (0.1-1.2) mg/dL Total Protein 4.8 L (6.3-8.2) g/dL Albumin 1.4 L (3.9-5) g/dL 07/25/19 Range/Units 11:34 WBC (4.5-11.0) K/mm3 RBC (3.65-5.03) M/mm3 Hgb (10.1-14.3) gm/dl Hct (30.3-42.9) % Seg Neutrophils % (40.0-70.0) % Seg Neutrophils # (1.8-7.7) K/mm3 ABG pO2 (80.0-90.0) mm Hg ABG HCO3 (20.0-26.0) mmol/L ABG O2 Saturation (95.0-99.0) % ABG Base Excess (-2.0-3.0) mmol/L ABG Hemoglobin (12.0-16.0) gm/dl Oxyhemoglobin (95.0-99.0) % Potassium (3.6-5.0) mmol/L Carbon Dioxide (22-30) mmol/L Creatinine (0.7-1.2) mg/dL Glucose (65-100) mg/dL POC Glucose 124 H (70-105) Calcium (8.4-10.2) mg/dL Total Bilirubin (0.1-1.2) mg/dL Total Protein (6.3-8.2) g/dL Albumin (3.9-5) g/dL
--- NOTE | 2019-07-25 16:23 | Progress Note ---
Assessment and Plan Imp: 1. Acute pyelonephritis with severe sepsis/septic shock 2. ARDS 3. Acute respiratory failure, hypoxia 4. CRISTIAN 5. Lactic acidosis 6. Cellulitis R foot/toe Rec: 1. ABX per ID 2. Wean FiO2 to keep sats 88% or >, then wean PEEP; PSV once at 50% FiO2 and PEEP of 5-6 3. Cont. sedation 4. HIDA negative 5. TFs, DVT/GI PPx 6. Agree w/ diuresis to keep negative fluid balance 7. K repleted; repeat labs in AM CCT 31 minutes No family present Subjective Date of service: 07/25/19 Principal diagnosis: Acute respiratory failure Interval history: No events. Had HIDA. Sedated on Fentanyl/Versed. BP stable. UOP excellent. On 55% FiO2 and PEEP of 12 w/ sat of 98%. Active Medications Acetaminophen (Tylenol) 650 mg PO Q4H PRN PRN Reason: Pain MILD(1-3)/Fever >100.5/WHALEN Last Admin: 07/25/19 08:16 Dose: 650 mg Documented by: Albuterol (Proventil) 2.5 mg IH Q4HRT PRN PRN Reason: Shortness Of Breath Last Admin: 07/16/19 23:01 Dose: 2.5 mg Documented by: Lipase/Protease/Amylase (Quique Thomas 10,500 Unit) 1 each FEEDTUBE PRN PRN PRN Reason: For Clogged Feeding Tube Bumetanide (Bumex) 1 mg IV DAILY [facility] Last Admin: 07/25/19 09:59 Dose: 1 mg Documented by: Dextrose (D50w (25gm) Syringe) 50 ml IV PRN PRN PRN Reason: Hypoglycemia Last Admin: 07/17/19 05:30 Dose: 50 ml Documented by: Enoxaparin Sodium (Lovenox) 40 mg SUB-Q QDAY@1000 [facility] Last Admin: 07/25/19 09:59 Dose: 40 mg Documented by: Famotidine (Pepcid) 20 mg PO BID [facility] Last Admin: 07/25/19 09:58 Dose: 20 mg Documented by: Fentanyl (Sublimaze) 50 mcg IV Q10MIN PRN PRN Reason: ANALGESIA Last Admin: 07/17/19 04:53 Dose: 50 mcg Documented by: Hydrochlorothiazide (Hctz) 25 mg PO QDAY [facility] Last Admin: 07/25/19 09:58 Dose: 25 mg Documented by: Hydromorphone HCl (Dilaudid) 0.25 mg IV Q3H PRN PRN Reason: Pain, Moderate (4-6) Last Admin: 07/21/19 01:07 Dose: 0.25 mg Documented by: Hydrophilic Ointment (Vaseline Lip Therapy) 1 applic TP Q2HR PRN PRN Reason: Dry Lips Vasopressin 20 unit/ Sodium (Chloride) 101 mls @ 9.09 mls/hr IV TITR KASIE; Protocol Last Titration: 07/20/19 10:56 Dose: Infused Documented by: Midazolam HCl 100 mg/ Sodium (Chloride) 100 mls @ 2 mls/hr IV TITR KASIE; Protocol Last Titration: 07/25/19 14:09 Dose: 1 mg/hr, 1 mls/hr Documented by: Fentanyl Citrate (Fentanyl Drip Premix) 2,000 mcg in 100 mls @ 3.4 mls/hr IV TITR KASIE; Protocol Last Admin: 07/25/19 16:10 Dose: 3 mcg/kg/hr, 10.2 mls/hr Documented by: Phenylephrine HCl 100 mg/ (Sodium Chloride) 100 mls @ 3 mls/hr IV TITR KASIE; Protocol Last Titration: 07/18/19 15:50 Dose: 0 mcg/min, 0 mls/hr Documented by: Ceftriaxone Sodium (Rocephin/Ns 2 Gm/100 Ml) 2 gm in 100 mls @ 200 mls/hr IV Q24HR KASIE; Protocol Last Admin: 07/25/19 10:36 Dose: 200 mls/hr Documented by: Vancomycin HCl (Vancomycin/Ns 1 Gm/250 Ml) 1 gm in 250 mls @ 167.007 mls/hr IV Q12HR KASIE Last Admin: 07/25/19 09:59 Dose: 167.007 mls/hr Documented by: Metronidazole (Flagyl 500 Mg/100 Ml) 500 mg in 100 mls @ 100 mls/hr IV Q8HR KASIE; Protocol Last Admin: 07/25/19 13:51 Dose: 100 mls/hr Documented by: Norepinephrine (Levophed Drip 4 Mg/Ns 250 Ml) 4 mg in 250 mls @ 7.5 mls/hr IV TITR KASIE; Protocol Last Titration: 07/23/19 02:30 Dose: 0 mcg/min, 0 mls/hr Documented by: Midazolam HCl (Versed) 2 mg IV Q10MIN PRN PRN Reason: Sedation Last Admin: 07/20/19 23:32 Dose: 2 mg Documented by: Multi-Ingred Cream/Lotion/Oil/Oint (Artificial Tears Ophth Oint) 1 applic OU Q4HR PRN PRN Reason: Dry Eye(s) Nicotine (Habitrol) 14 mg TD QDAY [facility] Last Admin: 07/25/19 09:58 Dose: 14 mg Documented by: Ondansetron HCl (Zofran) 4 mg IV Q8H PRN PRN Reason: Nausea And Vomiting Last Admin: 07/16/19 21:16 Dose: 4 mg Documented by: Oxycodone/Acetaminophen (Percocet 5/325) 1 tab PO Q6H PRN PRN Reason: Pain, Moderate (4-6) Last Admin: 07/16/19 12:33 Dose: 1 tab Documented by: Simple Syrup (Simple Syrup) 15 ml FEEDTUBE PRN PRN PRN Reason: Hypoglycemia Simple Syrup (Simple Syrup) 30 ml FEEDTUBE PRN PRN PRN Reason: Hypoglycemia Sodium Bicarbonate (Sodium Bicarbonate) 325 mg FEEDTUBE PRN PRN PRN Reason: For Clogged Feeding Tube Sodium Chloride (Sodium Chloride Flush Syringe 10 Ml) 10 ml IV BID [facility] Last Admin: 07/25/19 10:00 Dose: 10 ml Documented by: Sodium Chloride (Sodium Chloride Flush Syringe 10 Ml) 10 ml IV PRN PRN PRN Reason: LINE FLUSH Objective Vital Signs - 12hr 07/25/19 07/25/19 07/25/19 04:30 04:45 05:00 Temperature Pulse Rate 104 H 102 H 105 H Pulse Rate [ From Monitor] Respiratory 22 25 H 28 H Rate Blood Pressure 119/57 119/57 126/65 O2 Sat by Pulse 98 98 98 Oximetry 07/25/19 07/25/19 07/25/19 05:15 05:21 05:30 Temperature Pulse Rate 105 H 105 H 110 H Pulse Rate [ From Monitor] Respiratory 28 H 19 Rate Blood Pressure 119/57 123/65 133/65 O2 Sat by Pulse 99 99 97 Oximetry 07/25/19 07/25/19 07/25/19 05:45 06:00 06:15 Temperature Pulse Rate 108 H 107 H 108 H Pulse Rate [ From Monitor] Respiratory 27 H 27 H 29 H Rate Blood Pressure 133/65 131/59 131/59 O2 Sat by Pulse 98 98 97 Oximetry 07/25/19 07/25/19 07/25/19 06:30 06:45 07:00 Temperature Pulse Rate 106 H 107 H 105 H Pulse Rate [ From Monitor] Respiratory 24 26 H 26 H Rate Blood Pressure 125/57 125/57 125/60 O2 Sat by Pulse 97 97 98 Oximetry 07/25/19 07/25/19 07/25/19 07:15 07:30 07:45 Temperature Pulse Rate 104 H 104 H 104 H Pulse Rate [ From Monitor] Respiratory 24 22 19 Rate Blood Pressure 125/60 123/55 123/55 O2 Sat by Pulse 96 96 96 Oximetry 07/25/19 07/25/19 07/25/19 08:00 08:15 08:16 Temperature 101.7 F H Pulse Rate 100 H 105 H Pulse Rate [ 110 H From Monitor] Respiratory 24 23 26 H Rate Blood Pressure 114/52 117/57 O2 Sat by Pulse 99 97 Oximetry 07/25/19 07/25/19 07/25/19 08:30 08:45 09:00 Temperature Pulse Rate 110 H 104 H 99 H Pulse Rate [ From Monitor] Respiratory 18 18 26 H Rate Blood Pressure 127/61 127/61 114/52 O2 Sat by Pulse 96 96 96 Oximetry 07/25/19 07/25/19 07/25/19 09:15 09:30 09:45 Temperature Pulse Rate 114 H 95 H 102 H Pulse Rate [ From Monitor] Respiratory 19 26 H 19 Rate Blood Pressure 114/52 111/48 111/48 O2 Sat by Pulse 96 97 98 Oximetry 07/25/19 07/25/19 07/25/19 10:00 10:15 10:30 Temperature Pulse Rate 106 H 99 H 98 H Pulse Rate [ From Monitor] Respiratory 13 26 H 26 H Rate Blood Pressure 110/54 110/54 112/57 O2 Sat by Pulse 96 97 96 Oximetry 07/25/19 07/25/19 07/25/19 10:45 11:00 11:15 Temperature Pulse Rate 96 H 98 H 100 H Pulse Rate [ From Monitor] Respiratory 26 H 26 H 26 H Rate Blood Pressure 112/57 113/54 113/54 O2 Sat by Pulse 96 96 97 Oximetry 07/25/19 07/25/19 07/25/19 11:30 11:45 12:00 Temperature 99.6 F Pulse Rate 100 H 97 H 103 H Pulse Rate [ 100 H From Monitor] Respiratory 26 H 26 H 17 Rate Blood Pressure 116/58 116/58 125/61 O2 Sat by Pulse 97 97 97 Oximetry 07/25/19 07/25/19 07/25/19 12:15 12:30 12:39 Temperature 99.6 F Pulse Rate 101 H 98 H Pulse Rate [ From Monitor] Respiratory 26 H 26 H Rate Blood Pressure 125/61 104/54 O2 Sat by Pulse 97 96 Oximetry 07/25/19 07/25/19 07/25/19 12:45 13:00 13:15 Temperature Pulse Rate 104 H 101 H 98 H Pulse Rate [ From Monitor] Respiratory 26 H 26 H 26 H Rate Blood Pressure 104/54 111/61 111/61 O2 Sat by Pulse 98 96 Oximetry 07/25/19 07/25/19 07/25/19 13:30 13:45 14:00 Temperature Pulse Rate 104 H 98 H 105 H Pulse Rate [ From Monitor] Respiratory 22 26 H 14 Rate Blood Pressure 114/64 114/64 123/65 O2 Sat by Pulse 97 Oximetry 07/25/19 07/25/19 07/25/19 14:15 14:30 14:45 Temperature Pulse Rate 103 H 101 H 107 H Pulse Rate [ From Monitor] Respiratory 26 H 26 H 30 H Rate Blood Pressure 123/65 111/56 111/56 O2 Sat by Pulse 98 97 98 Oximetry 07/25/19 07/25/19 07/25/19 15:00 15:15 15:21 Temperature Pulse Rate 101 H 99 H 100 H Pulse Rate [ From Monitor] Respiratory 26 H 26 H Rate Blood Pressure 117/57 117/57 117/57 O2 Sat by Pulse 98 98 98 Oximetry 07/25/19 07/25/19 07/25/19 15:30 15:45 16:00 Temperature 100.9 F H Pulse Rate 98 H 96 H 101 H Pulse Rate [ From Monitor] Respiratory 26 H 26 H 26 H Rate Blood Pressure 110/55 110/55 113/60 O2 Sat by Pulse 98 98 98 Oximetry Constitutional: other (sedated, critically ill on ventilator. Opens eyes to tactile stimule) Eyes: non-icteric ENT: other (orally intubated and sedated) Neck: supple Effort: normal Ascultation: Bilateral: other (coarse equal BS bilaterally) Cardiovascular: regular rate and rhythm (sinus tach) Gastrointestinal: normoactive bowel sounds, soft, non-tender, non-distended Integumentary: normal Extremities: no cyanosis, no edema, pink and warm Neurologic: non-focal exam, other (sedated opens eyes to tactile stimuli) Psychiatric: other (unable to obtain) CBC and BMP: 07/25/19 04:09 07/25/19 04:09 ABG, PT/INR, D-dimer: ABG POC ABG pH 7.239 (7.35-7.45) L 07/18/19 05:51 ABG pH 7.429 pH Units (7.350-7.450) 07/25/19 05:29 POC ABG pCO2 56.9 (35-45) H 07/18/19 05:51 ABG pCO2 51.9 mm Hg 07/25/19 05:29 POC ABG pO2 88 (80-105) 07/18/19 05:51 ABG pO2 65.7 mm Hg (80.0-90.0) L 07/25/19 05:29 POC ABG HCO3 24.3 (22-26 mml/L) 07/18/19 05:51 POC ABG Total CO2 26 (23-27mmol/L) 07/18/19 05:51 POC ABG O2 Sat 95 07/18/19 05:51 ABG O2 Saturation 92.8 % (95.0-99.0) L 07/25/19 05:29 PT/INR, D-dimer PT 16.3 Sec. (12.2-14.9) H 07/16/19 05:47 INR 1.35 (0.87-1.13) H 07/16/19 05:47 Abnormal lab findings: Abnormal Labs 07/16/19 07/16/19 07/16/19 02:01 02:01 02:01 WBC 11.7 H RBC Hgb Hct Plt Count 101 L Seg Neutrophils % Seg Neuts % (Manual) 92.0 H Lymphocytes % (Manual) 5.0 L Monocytes % (Manual) Eosinophils % (Manual) Seg Neutrophils # Seg Neutrophils # Man 10.8 H Lymphocytes # (Manual) 0.6 L Monocytes # (Manual) Eosinophils # (Manual) PT 15.2 H INR 1.23 H POC ABG pH ABG pH POC ABG pCO2 POC ABG pO2 ABG pO2 ABG HCO3 ABG O2 Saturation ABG Base Excess ABG Hemoglobin Oxyhemoglobin Sodium Potassium Chloride Carbon Dioxide 18 L BUN 46 H Creatinine 2.2 H Glucose 116 H POC Glucose Lactic Acid Calcium Phosphorus Magnesium Total Bilirubin Direct Bilirubin AST 63 H ALT 125 H Alkaline Phosphatase Total Protein 6.2 L Albumin 2.8 L Lipase Urine WBC (Auto) U Epithel Cells (Auto) Urine Creatinine Hepatitis C Antibody 07/16/19 07/16/19 07/16/19 02:16 02:43 04:07 WBC RBC Hgb Hct Plt Count Seg Neutrophils % Seg Neuts % (Manual) Lymphocytes % (Manual) Monocytes % (Manual) Eosinophils % (Manual) Seg Neutrophils # Seg Neutrophils # Man Lymphocytes # (Manual) Monocytes # (Manual) Eosinophils # (Manual) PT INR POC ABG pH ABG pH POC ABG pCO2 POC ABG pO2 ABG pO2 ABG HCO3 ABG O2 Saturation ABG Base Excess ABG Hemoglobin Oxyhemoglobin Sodium Potassium Chloride Carbon Dioxide BUN Creatinine Glucose POC Glucose Lactic Acid 2.10 H* 2.30 H* Calcium Phosphorus Magnesium Total Bilirubin Direct Bilirubin AST ALT Alkaline Phosphatase Total Protein Albumin Lipase 6 L Urine WBC (Auto) U Epithel Cells (Auto) Urine Creatinine Hepatitis C Antibody 07/16/19 07/16/19 07/16/19 05:47 05:59 14:30 WBC RBC Hgb Hct Plt Count Seg Neutrophils % Seg Neuts % (Manual) Lymphocytes % (Manual) Monocytes % (Manual) Eosinophils % (Manual) Seg Neutrophils # Seg Neutrophils # Man Lymphocytes # (Manual) Monocytes # (Manual) Eosinophils # (Manual) PT 16.3 H INR 1.35 H POC ABG pH ABG pH POC ABG pCO2 POC ABG pO2 ABG pO2 ABG HCO3 ABG O2 Saturation ABG Base Excess ABG Hemoglobin Oxyhemoglobin Sodium Potassium Chloride Carbon Dioxide BUN Creatinine Glucose POC Glucose Lactic Acid Calcium Phosphorus Magnesium Total Bilirubin Direct Bilirubin AST ALT Alkaline Phosphatase Total Protein Albumin Lipase Urine WBC (Auto) > 182.0 H U Epithel Cells (Auto) 21.0 H Urine Creatinine 76.6 H Hepatitis C Antibody 07/16/19 07/17/19 07/17/19 23:27 00:03 00:03 WBC RBC Hgb Hct Plt Count Seg Neutrophils % Seg Neuts % (Manual) Lymphocytes % (Manual) Monocytes % (Manual) Eosinophils % (Manual) Seg Neutrophils # Seg Neutrophils # Man Lymphocytes # (Manual) Monocytes # (Manual) Eosinophils # (Manual) PT INR POC ABG pH 7.093 L ABG pH POC ABG pCO2 32.8 L POC ABG pO2 66 L ABG pO2 ABG HCO3 ABG O2 Saturation ABG Base Excess ABG Hemoglobin Oxyhemoglobin Sodium 148 H D Potassium Chloride 120.5 H Carbon Dioxide 14 L BUN 35 H Creatinine 1.5 H Glucose 42 L POC Glucose Lactic Acid 2.90 H* Calcium 5.7 L* D Phosphorus Magnesium Total Bilirubin Direct Bilirubin AST ALT Alkaline Phosphatase Total Protein Albumin Lipase Urine WBC (Auto) U Epithel Cells (Auto) Urine Creatinine Hepatitis C Antibody 07/17/19 07/17/19 07/17/19 03:01 03:29 03:40 WBC 13.2 H RBC Hgb Hct Plt Count 116 L Seg Neutrophils % Seg Neuts % (Manual) Lymphocytes % (Manual) 9.0 L Monocytes % (Manual) Eosinophils % (Manual) 24.0 H Seg Neutrophils # Seg Neutrophils # Man 8.6 H Lymphocytes # (Manual) Monocytes # (Manual) Eosinophils # (Manual) 3.2 H PT INR POC ABG pH 6.981 L ABG pH POC ABG pCO2 55.6 H POC ABG pO2 ABG pO2 ABG HCO3 ABG O2 Saturation ABG Base Excess ABG Hemoglobin Oxyhemoglobin Sodium Potassium Chloride Carbon Dioxide BUN Creatinine Glucose POC Glucose 64 L Lactic Acid Calcium Phosphorus Magnesium Total Bilirubin Direct Bilirubin AST ALT Alkaline Phosphatase Total Protein Albumin Lipase Urine WBC (Auto) U Epithel Cells (Auto) Urine Creatinine Hepatitis C Antibody 07/17/19 07/17/19 07/17/19 03:40 03:40 04:08 WBC RBC Hgb Hct Plt Count Seg Neutrophils % Seg Neuts % (Manual) Lymphocytes % (Manual) Monocytes % (Manual) Eosinophils % (Manual) Seg Neutrophils # Seg Neutrophils # Man Lymphocytes # (Manual) Monocytes # (Manual) Eosinophils # (Manual) PT INR POC ABG pH 7.056 L ABG pH POC ABG pCO2 POC ABG pO2 63 L ABG pO2 ABG HCO3 ABG O2 Saturation ABG Base Excess ABG Hemoglobin Oxyhemoglobin Sodium 147 H Potassium Chloride 120.2 H Carbon Dioxide 14 L BUN 36 H Creatinine 1.6 H Glucose POC Glucose Lactic Acid 3.20 H* Calcium 6.0 L Phosphorus Magnesium Total Bilirubin Direct Bilirubin AST ALT Alkaline Phosphatase Total Protein Albumin Lipase Urine WBC (Auto) U Epithel Cells (Auto) Urine Creatinine Hepatitis C Antibody 07/17/19 07/17/19 07/17/19 05:33 05:45 06:51 WBC RBC Hgb Hct Plt Count Seg Neutrophils % Seg Neuts % (Manual) Lymphocytes % (Manual) Monocytes % (Manual) Eosinophils % (Manual) Seg Neutrophils # Seg Neutrophils # Man Lymphocytes # (Manual) Monocytes # (Manual) Eosinophils # (Manual) PT INR POC ABG pH 7.061 L ABG pH POC ABG pCO2 49.0 H POC ABG pO2 ABG pO2 ABG HCO3 ABG O2 Saturation ABG Base Excess ABG Hemoglobin Oxyhemoglobin Sodium Potassium Chloride Carbon Dioxide BUN Creatinine Glucose POC Glucose 64 L 239 H Lactic Acid Calcium Phosphorus Magnesium Total Bilirubin Direct Bilirubin AST ALT Alkaline Phosphatase Total Protein Albumin Lipase Urine WBC (Auto) U Epithel Cells (Auto) Urine Creatinine Hepatitis C Antibody 07/17/19 07/17/19 07/17/19 10:57 12:56 18:11 WBC RBC Hgb Hct Plt Count Seg Neutrophils % Seg Neuts % (Manual) Lymphocytes % (Manual) Monocytes % (Manual) Eosinophils % (Manual) Seg Neutrophils # Seg Neutrophils # Man Lymphocytes # (Manual) Monocytes # (Manual) Eosinophils # (Manual) PT INR POC ABG pH ABG pH 7.192 L* POC ABG pCO2 POC ABG pO2 ABG pO2 67.5 L ABG HCO3 16.3 L ABG O2 Saturation 92.6 L ABG Base Excess -11.4 L ABG Hemoglobin Oxyhemoglobin 91.1 L Sodium Potassium Chloride Carbon Dioxide BUN Creatinine Glucose POC Glucose 107 H 122 H Lactic Acid Calcium Phosphorus Magnesium Total Bilirubin Direct Bilirubin AST ALT Alkaline Phosphatase Total Protein Albumin Lipase Urine WBC (Auto) U Epithel Cells (Auto) Urine Creatinine Hepatitis C Antibody 07/17/19 07/17/19 07/18/19 23:34 Unknown 04:00 WBC RBC Hgb Hct Plt Count 85 L Seg Neutrophils % Seg Neuts % (Manual) 82.0 H Lymphocytes % (Manual) 2.0 L Monocytes % (Manual) 12.0 H Eosinophils % (Manual) Seg Neutrophils # Seg Neutrophils # Man Lymphocytes # (Manual) 0.2 L Monocytes # (Manual) 1.1 H Eosinophils # (Manual) PT INR POC ABG pH ABG pH 7.237 L POC ABG pCO2 POC ABG pO2 ABG pO2 142.4 H ABG HCO3 17.0 L ABG O2 Saturation ABG Base Excess -9.8 L ABG Hemoglobin Oxyhemoglobin Sodium Potassium Chloride Carbon Dioxide BUN Creatinine Glucose POC Glucose 136 H Lactic Acid Calcium Phosphorus Magnesium Total Bilirubin Direct Bilirubin AST ALT Alkaline Phosphatase Total Protein Albumin Lipase Urine WBC (Auto) U Epithel Cells (Auto) Urine Creatinine Hepatitis C Antibody 07/18/19 07/18/19 07/18/19 04:00 05:31 05:51 WBC RBC Hgb Hct Plt Count Seg Neutrophils % Seg Neuts % (Manual) Lymphocytes % (Manual) Monocytes % (Manual) Eosinophils % (Manual) Seg Neutrophils # Seg Neutrophils # Man Lymphocytes # (Manual) Monocytes # (Manual) Eosinophils # (Manual) PT INR POC ABG pH 7.239 L ABG pH POC ABG pCO2 56.9 H POC ABG pO2 ABG pO2 ABG HCO3 ABG O2 Saturation ABG Base Excess ABG Hemoglobin Oxyhemoglobin Sodium 151 H Potassium 3.2 L D Chloride 114.7 H Carbon Dioxide BUN 42 H Creatinine 2.1 H Glucose 130 H POC Glucose 135 H Lactic Acid Calcium 6.0 L Phosphorus Magnesium Total Bilirubin 2.10 H Direct Bilirubin AST 59 H ALT 62 H Alkaline Phosphatase Total Protein 4.8 L D Albumin 2.0 L Lipase Urine WBC (Auto) U Epithel Cells (Auto) Urine Creatinine Hepatitis C Antibody 07/18/19 07/18/19 07/18/19 12:05 18:30 23:40 WBC RBC Hgb Hct Plt Count Seg Neutrophils % Seg Neuts % (Manual) Lymphocytes % (Manual) Monocytes % (Manual) Eosinophils % (Manual) Seg Neutrophils # Seg Neutrophils # Man Lymphocytes # (Manual) Monocytes # (Manual) Eosinophils # (Manual) PT INR POC ABG pH ABG pH POC ABG pCO2 POC ABG pO2 ABG pO2 ABG HCO3 ABG O2 Saturation ABG Base Excess ABG Hemoglobin Oxyhemoglobin Sodium Potassium Chloride Carbon Dioxide BUN Creatinine Glucose POC Glucose 126 H 131 H 163 H Lactic Acid Calcium Phosphorus Magnesium Total Bilirubin Direct Bilirubin AST ALT Alkaline Phosphatase Total Protein Albumin Lipase Urine WBC (Auto) U Epithel Cells (Auto) Urine Creatinine Hepatitis C Antibody 07/19/19 07/19/19 07/19/19 03:35 04:57 08:15 WBC 11.1 H RBC 3.64 L Hgb Hct Plt Count 71 L Seg Neutrophils % Seg Neuts % (Manual) Lymphocytes % (Manual) Monocytes % (Manual) Eosinophils % (Manual) Seg Neutrophils # Seg Neutrophils # Man Lymphocytes # (Manual) Monocytes # (Manual) Eosinophils # (Manual) PT INR POC ABG pH ABG pH 7.296 L POC ABG pCO2 POC ABG pO2 ABG pO2 78.7 L ABG HCO3 26.4 H ABG O2 Saturation ABG Base Excess ABG Hemoglobin 11.1 L Oxyhemoglobin 93.3 L Sodium Potassium Chloride Carbon Dioxide BUN Creatinine Glucose POC Glucose 170 H Lactic Acid Calcium Phosphorus Magnesium Total Bilirubin Direct Bilirubin AST ALT Alkaline Phosphatase Total Protein Albumin Lipase Urine WBC (Auto) U Epithel Cells (Auto) Urine Creatinine Hepatitis C Antibody 07/19/19 07/19/19 07/19/19 08:15 12:34 18:32 WBC RBC Hgb Hct Plt Count Seg Neutrophils % Seg Neuts % (Manual) Lymphocytes % (Manual) Monocytes % (Manual) Eosinophils % (Manual) Seg Neutrophils # Seg Neutrophils # Man Lymphocytes # (Manual) Monocytes # (Manual) Eosinophils # (Manual) PT INR POC ABG pH ABG pH POC ABG pCO2 POC ABG pO2 ABG pO2 ABG HCO3 ABG O2 Saturation ABG Base Excess ABG Hemoglobin Oxyhemoglobin Sodium 146 H Potassium 2.9 L* Chloride 107.9 H Carbon Dioxide BUN 35 H Creatinine 1.5 H Glucose 156 H POC Glucose 160 H 138 H Lactic Acid Calcium 6.6 L Phosphorus Magnesium Total Bilirubin Direct Bilirubin AST ALT Alkaline Phosphatase Total Protein Albumin Lipase Urine WBC (Auto) U Epithel Cells (Auto) Urine Creatinine Hepatitis C Antibody 07/19/19 07/19/19 07/20/19 23:41 Unknown 04:20 WBC RBC Hgb Hct Plt Count Seg Neutrophils % Seg Neuts % (Manual) Lymphocytes % (Manual) Monocytes % (Manual) Eosinophils % (Manual) Seg Neutrophils # Seg Neutrophils # Man Lymphocytes # (Manual) Monocytes # (Manual) Eosinophils # (Manual) PT INR POC ABG pH ABG pH 7.316 L POC ABG pCO2 POC ABG pO2 ABG pO2 ABG HCO3 27.9 H ABG O2 Saturation ABG Base Excess ABG Hemoglobin Oxyhemoglobin 94.0 L Sodium 149 H Potassium 3.2 L Chloride 112.3 H Carbon Dioxide BUN 34 H Creatinine Glucose 162 H POC Glucose 145 H Lactic Acid Calcium 7.0 L Phosphorus Magnesium 1.50 L Total Bilirubin Direct Bilirubin AST ALT Alkaline Phosphatase Total Protein Albumin Lipase Urine WBC (Auto) U Epithel Cells (Auto) Urine Creatinine Hepatitis C Antibody 07/20/19 07/20/19 07/20/19 05:25 07:50 07:50 WBC 12.6 H RBC 3.51 L Hgb Hct Plt Count 56 L Seg Neutrophils % Seg Neuts % (Manual) 89.0 H Lymphocytes % (Manual) 5.0 L Monocytes % (Manual) Eosinophils % (Manual) Seg Neutrophils # Seg Neutrophils # Man 11.2 H Lymphocytes # (Manual) 0.6 L Monocytes # (Manual) Eosinophils # (Manual) PT INR POC ABG pH ABG pH POC ABG pCO2 POC ABG pO2 ABG pO2 ABG HCO3 ABG O2 Saturation ABG Base Excess ABG Hemoglobin Oxyhemoglobin Sodium 151 H Potassium 3.4 L Chloride 114.7 H Carbon Dioxide 31 H BUN 30 H Creatinine Glucose 148 H POC Glucose 141 H Lactic Acid Calcium 7.3 L Phosphorus Magnesium Total Bilirubin Direct Bilirubin AST ALT Alkaline Phosphatase Total Protein Albumin Lipase Urine WBC (Auto) U Epithel Cells (Auto) Urine Creatinine Hepatitis C Antibody 07/20/19 07/20/19 07/20/19 15:47 17:25 23:57 WBC RBC Hgb Hct Plt Count Seg Neutrophils % Seg Neuts % (Manual) Lymphocytes % (Manual) Monocytes % (Manual) Eosinophils % (Manual) Seg Neutrophils # Seg Neutrophils # Man Lymphocytes # (Manual) Monocytes # (Manual) Eosinophils # (Manual) PT INR POC ABG pH ABG pH POC ABG pCO2 POC ABG pO2 ABG pO2 ABG HCO3 ABG O2 Saturation ABG Base Excess ABG Hemoglobin Oxyhemoglobin Sodium Potassium Chloride Carbon Dioxide BUN Creatinine Glucose POC Glucose 160 H 165 H 122 H Lactic Acid Calcium Phosphorus Magnesium Total Bilirubin Direct Bilirubin AST ALT Alkaline Phosphatase Total Protein Albumin Lipase Urine WBC (Auto) U Epithel Cells (Auto) Urine Creatinine Hepatitis C Antibody 07/21/19 07/21/19 07/21/19 05:00 05:00 05:00 WBC 15.8 H RBC Hgb Hct Plt Count 56 L Seg Neutrophils % Seg Neuts % (Manual) Lymphocytes % (Manual) Monocytes % (Manual) Eosinophils % (Manual) Seg Neutrophils # Seg Neutrophils # Man Lymphocytes # (Manual) Monocytes # (Manual) Eosinophils # (Manual) PT INR POC ABG pH ABG pH POC ABG pCO2 POC ABG pO2 ABG pO2 ABG HCO3 ABG O2 Saturation ABG Base Excess ABG Hemoglobin Oxyhemoglobin Sodium 147 H Potassium 3.5 L Chloride 111.4 H Carbon Dioxide BUN 21 H Creatinine Glucose 107 H POC Glucose Lactic Acid Calcium 7.6 L Phosphorus 1.60 L Magnesium Total Bilirubin 4.80 H Direct Bilirubin AST 48 H ALT Alkaline Phosphatase 131 H Total Protein 4.3 L Albumin 1.5 L Lipase Urine WBC (Auto) U Epithel Cells (Auto) Urine Creatinine Hepatitis C Antibody 07/21/19 07/21/19 07/21/19 05:34 12:12 18:22 WBC RBC Hgb Hct Plt Count Seg Neutrophils % Seg Neuts % (Manual) Lymphocytes % (Manual) Monocytes % (Manual) Eosinophils % (Manual) Seg Neutrophils # Seg Neutrophils # Man Lymphocytes # (Manual) Monocytes # (Manual) Eosinophils # (Manual) PT INR POC ABG pH ABG pH POC ABG pCO2 POC ABG pO2 ABG pO2 ABG HCO3 ABG O2 Saturation ABG Base Excess ABG Hemoglobin Oxyhemoglobin Sodium Potassium Chloride Carbon Dioxide BUN Creatinine Glucose POC Glucose 119 H 108 H 125 H Lactic Acid Calcium Phosphorus Magnesium Total Bilirubin Direct Bilirubin AST ALT Alkaline Phosphatase Total Protein Albumin Lipase Urine WBC (Auto) U Epithel Cells (Auto) Urine Creatinine Hepatitis C Antibody 07/21/19 07/21/19 07/22/19 23:27 Unknown 04:25 WBC RBC Hgb Hct Plt Count Seg Neutrophils % Seg Neuts % (Manual) Lymphocytes % (Manual) Monocytes % (Manual) Eosinophils % (Manual) Seg Neutrophils # Seg Neutrophils # Man Lymphocytes # (Manual) Monocytes # (Manual) Eosinophils # (Manual) PT INR POC ABG pH ABG pH POC ABG pCO2 POC ABG pO2 ABG pO2 61.9 L 68.7 L ABG HCO3 28.9 H 29.1 H ABG O2 Saturation 93.5 L 94.4 L ABG Base Excess 3.5 H ABG Hemoglobin 10.8 L 11.5 L Oxyhemoglobin 91.6 L 92.3 L Sodium Potassium Chloride Carbon Dioxide BUN Creatinine Glucose POC Glucose 126 H Lactic Acid Calcium Phosphorus Magnesium Total Bilirubin Direct Bilirubin AST ALT Alkaline Phosphatase Total Protein Albumin Lipase Urine WBC (Auto) U Epithel Cells (Auto) Urine Creatinine Hepatitis C Antibody 08/07/22/19 07/22/19 05:25 07:00 07:00 WBC 14.9 H RBC Hgb Hct Plt Count 87 L Seg Neutrophils % Seg Neuts % (Manual) Lymphocytes % (Manual) Monocytes % (Manual) Eosinophils % (Manual) Seg Neutrophils # Seg Neutrophils # Man Lymphocytes # (Manual) Monocytes # (Manual) Eosinophils # (Manual) PT INR POC ABG pH ABG pH POC ABG pCO2 POC ABG pO2 ABG pO2 ABG HCO3 ABG O2 Saturation ABG Base Excess ABG Hemoglobin Oxyhemoglobin Sodium 147 H Potassium 3.3 L Chloride 110.9 H Carbon Dioxide BUN Creatinine 0.6 L Glucose 107 H POC Glucose 107 H Lactic Acid Calcium 7.5 L Phosphorus Magnesium Total Bilirubin Direct Bilirubin AST ALT Alkaline Phosphatase Total Protein Albumin Lipase Urine WBC (Auto) U Epithel Cells (Auto) Urine Creatinine Hepatitis C Antibody 07/22/19 07/22/19 07/23/19 17:41 23:40 04:50 WBC RBC Hgb Hct Plt Count Seg Neutrophils % Seg Neuts % (Manual) Lymphocytes % (Manual) Monocytes % (Manual) Eosinophils % (Manual) Seg Neutrophils # Seg Neutrophils # Man Lymphocytes # (Manual) Monocytes # (Manual) Eosinophils # (Manual) PT INR POC ABG pH ABG pH POC ABG pCO2 POC ABG pO2 ABG pO2 ABG HCO3 ABG O2 Saturation ABG Base Excess ABG Hemoglobin Oxyhemoglobin Sodium Potassium Chloride Carbon Dioxide BUN Creatinine 0.6 L Glucose 102 H POC Glucose 132 H 123 H Lactic Acid Calcium 7.8 L Phosphorus Magnesium 1.50 L Total Bilirubin Direct Bilirubin AST ALT Alkaline Phosphatase Total Protein Albumin Lipase Urine WBC (Auto) U Epithel Cells (Auto) Urine Creatinine Hepatitis C Antibody 07/23/19 07/23/19 07/23/19 05:00 10:50 10:50 WBC 13.0 H RBC 3.41 L Hgb Hct Plt Count 100 L Seg Neutrophils % Seg Neuts % (Manual) Lymphocytes % (Manual) Monocytes % (Manual) Eosinophils % (Manual) Seg Neutrophils # Seg Neutrophils # Man Lymphocytes # (Manual) Monocytes # (Manual) Eosinophils # (Manual) PT INR POC ABG pH ABG pH POC ABG pCO2 POC ABG pO2 ABG pO2 100.4 H ABG HCO3 28.7 H ABG O2 Saturation ABG Base Excess ABG Hemoglobin 11.0 L Oxyhemoglobin Sodium Potassium Chloride Carbon Dioxide BUN Creatinine Glucose POC Glucose Lactic Acid Calcium Phosphorus Magnesium Total Bilirubin 2.60 H Direct Bilirubin 2.2 H AST 41 H ALT Alkaline Phosphatase Total Protein 4.4 L Albumin 1.4 L Lipase Urine WBC (Auto) U Epithel Cells (Auto) Urine Creatinine Hepatitis C Antibody 07/23/19 07/23/19 07/23/19 11:49 11:49 17:42 WBC RBC Hgb Hct Plt Count Seg Neutrophils % Seg Neuts % (Manual) Lymphocytes % (Manual) Monocytes % (Manual) Eosinophils % (Manual) Seg Neutrophils # Seg Neutrophils # Man Lymphocytes # (Manual) Monocytes # (Manual) Eosinophils # (Manual) PT INR POC ABG pH ABG pH POC ABG pCO2 POC ABG pO2 ABG pO2 ABG HCO3 ABG O2 Saturation ABG Base Excess ABG Hemoglobin Oxyhemoglobin Sodium Potassium Chloride Carbon Dioxide BUN Creatinine Glucose POC Glucose 109 H 124 H Lactic Acid Calcium Phosphorus Magnesium Total Bilirubin Direct Bilirubin AST ALT Alkaline Phosphatase Total Protein Albumin Lipase Urine WBC (Auto) U Epithel Cells (Auto) Urine Creatinine Hepatitis C Antibody Reactive A 07/23/19 07/24/19 07/24/19 23:37 03:34 03:34 WBC 13.7 H RBC 3.39 L Hgb Hct 29.9 L Plt Count 116 L Seg Neutrophils % 77.7 H Seg Neuts % (Manual) Lymphocytes % (Manual) Monocytes % (Manual) Eosinophils % (Manual) Seg Neutrophils # 10.6 H Seg Neutrophils # Man Lymphocytes # (Manual) Monocytes # (Manual) Eosinophils # (Manual) PT INR POC ABG pH ABG pH POC ABG pCO2 POC ABG pO2 ABG pO2 ABG HCO3 ABG O2 Saturation ABG Base Excess ABG Hemoglobin Oxyhemoglobin Sodium Potassium 3.3 L Chloride Carbon Dioxide 35 H BUN Creatinine 0.6 L Glucose 139 H POC Glucose 145 H Lactic Acid Calcium 7.7 L Phosphorus Magnesium Total Bilirubin Direct Bilirubin AST ALT Alkaline Phosphatase Total Protein Albumin Lipase Urine WBC (Auto) U Epithel Cells (Auto) Urine Creatinine Hepatitis C Antibody 07/24/19 07/24/19 07/24/19 04:50 05:11 11:29 WBC RBC Hgb Hct Plt Count Seg Neutrophils % Seg Neuts % (Manual) Lymphocytes % (Manual) Monocytes % (Manual) Eosinophils % (Manual) Seg Neutrophils # Seg Neutrophils # Man Lymphocytes # (Manual) Monocytes # (Manual) Eosinophils # (Manual) PT INR POC ABG pH ABG pH 7.457 H POC ABG pCO2 POC ABG pO2 ABG pO2 138.3 H ABG HCO3 32.1 H ABG O2 Saturation ABG Base Excess 7.4 H ABG Hemoglobin 8.2 L Oxyhemoglobin Sodium Potassium Chloride Carbon Dioxide BUN Creatinine Glucose POC Glucose 128 H 123 H Lactic Acid Calcium Phosphorus Magnesium Total Bilirubin Direct Bilirubin AST ALT Alkaline Phosphatase Total Protein Albumin Lipase Urine WBC (Auto) U Epithel Cells (Auto) Urine Creatinine Hepatitis C Antibody 07/24/19 07/24/19 07/25/19 17:50 23:39 04:09 WBC 12.5 H RBC 3.13 L Hgb 9.3 L Hct 27.7 L Plt Count Seg Neutrophils % 77.2 H Seg Neuts % (Manual) Lymphocytes % (Manual) Monocytes % (Manual) Eosinophils % (Manual) Seg Neutrophils # 9.6 H Seg Neutrophils # Man Lymphocytes # (Manual) Monocytes # (Manual) Eosinophils # (Manual) PT INR POC ABG pH ABG pH POC ABG pCO2 POC ABG pO2 ABG pO2 ABG HCO3 ABG O2 Saturation ABG Base Excess ABG Hemoglobin Oxyhemoglobin Sodium Potassium Chloride Carbon Dioxide BUN Creatinine Glucose POC Glucose 125 H 144 H Lactic Acid Calcium Phosphorus Magnesium Total Bilirubin Direct Bilirubin AST ALT Alkaline Phosphatase Total Protein Albumin Lipase Urine WBC (Auto) U Epithel Cells (Auto) Urine Creatinine Hepatitis C Antibody 07/25/19 07/25/19 07/25/19 04:09 05:12 05:29 WBC RBC Hgb Hct Plt Count Seg Neutrophils % Seg Neuts % (Manual) Lymphocytes % (Manual) Monocytes % (Manual) Eosinophils % (Manual) Seg Neutrophils # Seg Neutrophils # Man Lymphocytes # (Manual) Monocytes # (Manual) Eosinophils # (Manual) PT INR POC ABG pH ABG pH POC ABG pCO2 POC ABG pO2 ABG pO2 65.7 L ABG HCO3 33.6 H ABG O2 Saturation 92.8 L ABG Base Excess 7.9 H ABG Hemoglobin 11.9 L Oxyhemoglobin 90.7 L Sodium Potassium 3.1 L Chloride Carbon Dioxide 34 H BUN Creatinine 0.6 L Glucose 159 H POC Glucose 168 H Lactic Acid Calcium 7.5 L Phosphorus Magnesium Total Bilirubin 1.30 H Direct Bilirubin AST ALT Alkaline Phosphatase Total Protein 4.8 L Albumin 1.4 L Lipase Urine WBC (Auto) U Epithel Cells (Auto) Urine Creatinine Hepatitis C Antibody 07/25/19 11:34 WBC RBC Hgb Hct Plt Count Seg Neutrophils % Seg Neuts % (Manual) Lymphocytes % (Manual) Monocytes % (Manual) Eosinophils % (Manual) Seg Neutrophils # Seg Neutrophils # Man Lymphocytes # (Manual) Monocytes # (Manual) Eosinophils # (Manual) PT INR POC ABG pH ABG pH POC ABG pCO2 POC ABG pO2 ABG pO2 ABG HCO3 ABG O2 Saturation ABG Base Excess ABG Hemoglobin Oxyhemoglobin Sodium Potassium Chloride Carbon Dioxide BUN Creatinine Glucose POC Glucose 124 H Lactic Acid Calcium Phosphorus Magnesium Total Bilirubin Direct Bilirubin AST ALT Alkaline Phosphatase Total Protein Albumin Lipase Urine WBC (Auto) U Epithel Cells (Auto) Urine Creatinine Hepatitis C Antibody Chest x-ray: report reviewed, image reviewed (bilateral infiltrates)
--- NOTE | 2019-07-25 18:46 | Nuclear Medicine Report ---
NUCLEAR MEDICINE HEPATOBILIARY SCAN INDICATION: Shock. Possible cholecystitis. TECHNIQUE: Radiotracer: Tc-99m Choletec (by IV): 4.99 mCi. Gallbladder Stimulant: None. COMPARISON: Limited abdominal ultrasound from 07/20/2019. FINDINGS: Hepatic activity: Normal. Biliary activity: Normal. Common bile duct activity at 20 minutes. Gallbladder activity: Normal at 20 minutes. Small bowel activity: Normal at 30 minutes. IMPRESSION: No biliary obstruction. Signer Name: Chapo Hatfield MD Signed: 07/25/2019 6:42 PM Workstation Name: [id number]
[2019-07-26] MEDS: fentaNYL DRIP Premix 2,000 MCG/100 ML BAG IV SCH ×3 (01:07→18:15)
[2019-07-26] MEDS: FREE WATER PO SCH ×6 (01:09→20:32)
[2019-07-26 05:25] LABS: ABG Base Excess 6.5 mmol/L (-2.0-3.0); ABG Methemoglobin 0.5 % (0.0-1.5); ABG Oxygen Saturation 97.6 % (95.0-99.0); ABG PCO2 50.5 mm Hg; ABG PH 7.419 pH Units (7.350-7.450); ABG PO2 101.9 mm Hg (80.0-90.0)
[2019-07-26] MEDS: FLAGYL 500 MG/100 ML 500 MG/100 ML BAG IV SCH (05:50)
[2019-07-26 07:16] LABS: Basophils # (Auto) 0.1 K/mm3 (0.0-0.1); Basophils % (Auto) 0.8 % (0.0-1.8); Eosinophils # (Auto) 0.2 K/mm3 (0.0-0.4); Eosinophils % (Auto) 1.8 % (0.0-4.3); Hematocrit 28.2 % (30.3-42.9); Hemoglobin 9.2 gm/dl (10.1-14.3); Lymphocytes % (Auto) 16.6 % (13.4-35.0); Mean Corpuscular HGB Conc 33 % (30-34); Mean Corpuscular Volume 91 fl (79-97); Monocytes % (Auto) 7.8 % (0.0-7.3); Platelet Count 225 K/mm3 (140-440); Red Blood Count 3.11 M/mm3 (3.65-5.03); Red Cell Distribution Width 15.4 % (13.2-15.2)
[2019-07-26 07:38] LABS: BUN/Creatinine Ratio 20; Blood Urea Nitrogen 14 mg/dL (7-17); Calcium 7.9 mg/dL (8.4-10.2); Hemolysis Index 4
[2019-07-26] MEDS: HABITROL TD SCH (09:31)
[2019-07-26] MEDS: BUMEX IV SCH (09:31)
[2019-07-26] MEDS: HCTZ PO SCH (09:31)
[2019-07-26] MEDS: PEPCID PO SCH ×2 (09:31→21:00)
[2019-07-26] MEDS: LOVENOX SUB-Q SCH (09:31)
[2019-07-26] MEDS: VANCOMYCIN/NS 1 GM/250 ML 1 GM/250 ML BAG IV SCH (09:32)
[2019-07-26] MEDS: SODIUM CHLORIDE FLUSH SYRINGE 10 ML IV SCH ×2 (10:00→21:01)
[2019-07-26] MEDS: ROCEPHIN/NS 2 GM/100 ML 2 GM/100 ML BAG IV SCH (11:05)
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
[2019-07-26] MEDS ORDERED: MAGNESIUM SULFATE 2GM/50ML 2 GM/50 ML BAG IV ONE (16:21)
--- NOTE | 2019-07-26 16:25 | Progress Note ---
Assessment and Plan Imp: 1. Acute pyelonephritis with severe sepsis/septic shock 2. ARDS 3. Acute respiratory failure, hypoxia 4. CRISTIAN 5. Lactic acidosis 6. Cellulitis R foot/toe Rec: 1. ABX per ID 2. FiO2 now at 35%; decrease PEEP to 10 now, and cont. to wean PRN to keep sats 88% or >; once PEEP back at +6 begin PSV trials 3. Cont. sedation for now although recommend daily SAT 4. HIDA negative 5. TFs, DVT/GI PPx 6. Agree w/ diuresis to keep negative fluid balance 7. Replete mag to keep > 2.0; labs in AM CCT 31 minutes Plan of care reviewed with father at bedside, he understands/agrees Subjective Date of service: 07/26/19 Principal diagnosis: Acute respiratory failure Interval history: No events. Had HIDA. Sedated on Fentanyl/Versed. BP stable. UOP excellent. On 35% FiO2 and PEEP of 12 w/ sat of 96%. Active Medications Acetaminophen (Tylenol) 650 mg PO Q4H PRN PRN Reason: Pain MILD(1-3)/Fever >100.5/WHALEN Last Admin: 07/25/19 08:16 Dose: 650 mg Documented by: Albuterol (Proventil) 2.5 mg IH Q4HRT PRN PRN Reason: Shortness Of Breath Last Admin: 07/16/19 23:01 Dose: 2.5 mg Documented by: Lipase/Protease/Amylase (Quique Thomas 10,500 Unit) 1 each FEEDTUBE PRN PRN PRN Reason: For Clogged Feeding Tube Bumetanide (Bumex) 1 mg IV DAILY [facility] Last Admin: 07/26/19 09:31 Dose: 1 mg Documented by: Dextrose (D50w (25gm) Syringe) 50 ml IV PRN PRN PRN Reason: Hypoglycemia Last Admin: 07/17/19 05:30 Dose: 50 ml Documented by: Enoxaparin Sodium (Lovenox) 40 mg SUB-Q QDAY@1000 [facility] Last Admin: 07/26/19 09:31 Dose: 40 mg Documented by: Famotidine (Pepcid) 20 mg PO BID [facility] Last Admin: 07/26/19 09:31 Dose: 20 mg Documented by: Fentanyl (Sublimaze) 50 mcg IV Q10MIN PRN PRN Reason: ANALGESIA Last Admin: 07/17/19 04:53 Dose: 50 mcg Documented by: Hydrochlorothiazide (Hctz) 25 mg PO QDAY KASIE Last Admin: 07/26/19 09:31 Dose: 25 mg Documented by: Hydromorphone HCl (Dilaudid) 0.25 mg IV Q3H PRN PRN Reason: Pain, Moderate (4-6) Last Admin: 07/21/19 01:07 Dose: 0.25 mg Documented by: Hydrophilic Ointment (Vaseline Lip Therapy) 1 applic TP Q2HR PRN PRN Reason: Dry Lips Midazolam HCl 100 mg/ Sodium (Chloride) 100 mls @ 2 mls/hr IV TITR KASIE; Protocol Last Titration: 07/26/19 11:53 Dose: 2 mg/hr, 2 mls/hr Documented by: Fentanyl Citrate (Fentanyl Drip Premix) 2,000 mcg in 100 mls @ 3.4 mls/hr IV TITR KASIE; Protocol Last Admin: 07/26/19 10:15 Dose: 3 mcg/kg/hr, 10.2 mls/hr Documented by: Ceftriaxone Sodium (Rocephin/Ns 2 Gm/100 Ml) 2 gm in 100 mls @ 200 mls/hr IV Q24HR KASIE; Protocol Last Admin: 07/26/19 11:05 Dose: 200 mls/hr Documented by: Magnesium Sulfate (Magnesium Sulfate 2gm/50ml) 2 gm in 50 mls @ 25 mls/hr IV ONCE ONE Stop: 07/26/19 18:20 Midazolam HCl (Versed) 2 mg IV Q10MIN PRN PRN Reason: Sedation Last Admin: 07/20/19 23:32 Dose: 2 mg Documented by: Multi-Ingred Cream/Lotion/Oil/Oint (Artificial Tears Ophth Oint) 1 applic OU Q4HR PRN PRN Reason: Dry Eye(s) Nicotine (Habitrol) 14 mg TD QDAY KASIE Last Admin: 07/26/19 09:31 Dose: 14 mg Documented by: Ondansetron HCl (Zofran) 4 mg IV Q8H PRN PRN Reason: Nausea And Vomiting Last Admin: 07/16/19 21:16 Dose: 4 mg Documented by: Oxycodone/Acetaminophen (Percocet 5/325) 1 tab PO Q6H PRN PRN Reason: Pain, Moderate (4-6) Last Admin: 07/16/19 12:33 Dose: 1 tab Documented by: Simple Syrup (Simple Syrup) 15 ml FEEDTUBE PRN PRN PRN Reason: Hypoglycemia Simple Syrup (Simple Syrup) 30 ml FEEDTUBE PRN PRN PRN Reason: Hypoglycemia Sodium Bicarbonate (Sodium Bicarbonate) 325 mg FEEDTUBE PRN PRN PRN Reason: For Clogged Feeding Tube Sodium Chloride (Sodium Chloride Flush Syringe 10 Ml) 10 ml IV BID KASIE Last Admin: 07/26/19 10:00 Dose: 10 ml Documented by: Sodium Chloride (Sodium Chloride Flush Syringe 10 Ml) 10 ml IV PRN PRN PRN Reason: LINE FLUSH Objective Vital Signs - 12hr 07/26/19 07/26/19 07/26/19 04:30 05:00 05:30 Temperature Pulse Rate 105 H 101 H 105 H Pulse Rate [ From Monitor] Respiratory 26 H 26 H 27 H Rate Respiratory Rate [Bilateral Flank] Blood Pressure 116/56 106/48 111/50 O2 Sat by Pulse 98 98 98 Oximetry 07/26/19 07/26/19 07/26/19 06:00 06:30 07:00 Temperature Pulse Rate 103 H 104 H 99 H Pulse Rate [ From Monitor] Respiratory 25 H 26 H 26 H Rate Respiratory Rate [Bilateral Flank] Blood Pressure 107/48 103/51 102/48 O2 Sat by Pulse 98 97 98 Oximetry 07/26/19 07/26/19 07/26/19 07:28 07:30 08:00 Temperature 102.0 F H Pulse Rate 105 H 107 H 100 H Pulse Rate [ From Monitor] Respiratory 26 H 26 H Rate Respiratory Rate [Bilateral Flank] Blood Pressure 116/55 116/55 101/47 O2 Sat by Pulse 97 97 97 Oximetry 07/26/19 07/26/19 07/26/19 08:30 09:00 09:30 Temperature Pulse Rate 100 H 101 H 100 H Pulse Rate [ From Monitor] Respiratory 26 H 26 H 26 H Rate Respiratory Rate [Bilateral Flank] Blood Pressure 101/48 104/49 104/49 O2 Sat by Pulse 97 97 97 Oximetry 07/26/19 07/26/19 07/26/19 10:00 10:30 11:00 Temperature Pulse Rate 95 H 106 H 109 H Pulse Rate [ From Monitor] Respiratory 26 H 26 H 26 H Rate Respiratory 26 H Rate [Bilateral Flank] Blood Pressure 105/49 111/52 114/57 O2 Sat by Pulse 97 96 96 Oximetry 07/26/19 07/26/19 07/26/19 11:30 11:42 12:00 Temperature 101.5 F H Pulse Rate 108 H 104 H 108 H Pulse Rate [ 103 H From Monitor] Respiratory 13 26 H Rate Respiratory Rate [Bilateral Flank] Blood Pressure 120/63 120/63 103/54 O2 Sat by Pulse 97 96 96 Oximetry 07/26/19 07/26/19 07/26/19 12:30 13:00 13:30 Temperature Pulse Rate 100 H 98 H 95 H Pulse Rate [ From Monitor] Respiratory 26 H 26 H 26 H Rate Respiratory Rate [Bilateral Flank] Blood Pressure 103/55 102/56 106/57 O2 Sat by Pulse 96 96 97 Oximetry 07/26/19 07/26/19 07/26/19 14:00 14:30 15:00 Temperature Pulse Rate 100 H 102 H 112 H Pulse Rate [ From Monitor] Respiratory 26 H 26 H 16 Rate Respiratory Rate [Bilateral Flank] Blood Pressure 111/62 109/59 119/66 O2 Sat by Pulse 97 96 96 Oximetry 07/26/19 15:26 Temperature Pulse Rate 105 H Pulse Rate [ From Monitor] Respiratory Rate Respiratory Rate [Bilateral Flank] Blood Pressure 119/66 O2 Sat by Pulse 96 Oximetry Constitutional: other (sedated, critically ill on ventilator. Opens eyes to tactile stimule) Eyes: non-icteric ENT: other (orally intubated and sedated) Neck: supple Effort: normal Ascultation: Bilateral: other (coarse equal BS bilaterally) Percussion: Bilateral: not dull Cardiovascular: regular rate and rhythm (sinus tach) Gastrointestinal: normoactive bowel sounds, soft, non-tender, non-distended Integumentary: normal Extremities: no cyanosis, no edema, pink and warm Neurologic: non-focal exam, other (sedated opens eyes to tactile stimuli) Psychiatric: other (unable to obtain) CBC and BMP: 07/26/19 05:00 07/26/19 05:00 ABG, PT/INR, D-dimer: ABG POC ABG pH 7.239 (7.35-7.45) L 07/18/19 05:51 ABG pH 7.419 pH Units (7.350-7.450) 07/26/19 04:25 POC ABG pCO2 56.9 (35-45) H 07/18/19 05:51 ABG pCO2 50.5 mm Hg 07/26/19 04:25 POC ABG pO2 88 (80-105) 07/18/19 05:51 ABG pO2 101.9 mm Hg (80.0-90.0) H 07/26/19 04:25 POC ABG HCO3 24.3 (22-26 mml/L) 07/18/19 05:51 POC ABG Total CO2 26 (23-27mmol/L) 07/18/19 05:51 POC ABG O2 Sat 95 07/18/19 05:51 ABG O2 Saturation 97.6 % (95.0-99.0) 07/26/19 04:25 PT/INR, D-dimer PT 16.3 Sec. (12.2-14.9) H 07/16/19 05:47 INR 1.35 (0.87-1.13) H 07/16/19 05:47 Abnormal lab findings: Abnormal Labs 07/16/19 07/16/19 07/16/19 02:01 02:01 02:01 WBC 11.7 H RBC Hgb Hct RDW Plt Count 101 L [place] % (Auto) [place] # Seg Neutrophils % Seg Neuts % (Manual) 92.0 H Lymphocytes % (Manual) 5.0 L Monocytes % (Manual) Eosinophils % (Manual) Seg Neutrophils # Seg Neutrophils # Man 10.8 H Lymphocytes # (Manual) 0.6 L Monocytes # (Manual) Eosinophils # (Manual) PT 15.2 H INR 1.23 H POC ABG pH ABG pH POC ABG pCO2 POC ABG pO2 ABG pO2 ABG HCO3 ABG O2 Saturation ABG Base Excess ABG Hemoglobin Oxyhemoglobin Sodium Potassium Chloride Carbon Dioxide 18 L BUN 46 H Creatinine 2.2 H Glucose 116 H POC Glucose Lactic Acid Calcium Phosphorus Magnesium Total Bilirubin Direct Bilirubin AST 63 H ALT 125 H Alkaline Phosphatase Total Protein 6.2 L Albumin 2.8 L Lipase Urine WBC (Auto) U Epithel Cells (Auto) Urine Creatinine Hepatitis C Antibody 07/16/19 07/16/19 07/16/19 02:16 02:43 04:07 WBC RBC Hgb Hct RDW Plt Count [place] % (Auto) [place] # Seg Neutrophils % Seg Neuts % (Manual) Lymphocytes % (Manual) Monocytes % (Manual) Eosinophils % (Manual) Seg Neutrophils # Seg Neutrophils # Man Lymphocytes # (Manual) Monocytes # (Manual) Eosinophils # (Manual) PT INR POC ABG pH ABG pH POC ABG pCO2 POC ABG pO2 ABG pO2 ABG HCO3 ABG O2 Saturation ABG Base Excess ABG Hemoglobin Oxyhemoglobin Sodium Potassium Chloride Carbon Dioxide BUN Creatinine Glucose POC Glucose Lactic Acid 2.10 H* 2.30 H* Calcium Phosphorus Magnesium Total Bilirubin Direct Bilirubin AST ALT Alkaline Phosphatase Total Protein Albumin Lipase 6 L Urine WBC (Auto) U Epithel Cells (Auto) Urine Creatinine Hepatitis C Antibody 07/16/19 07/16/19 07/16/19 05:47 05:59 14:30 WBC RBC Hgb Hct RDW Plt Count [place] % (Auto) [place] # Seg Neutrophils % Seg Neuts % (Manual) Lymphocytes % (Manual) Monocytes % (Manual) Eosinophils % (Manual) Seg Neutrophils # Seg Neutrophils # Man Lymphocytes # (Manual) Monocytes # (Manual) Eosinophils # (Manual) PT 16.3 H INR 1.35 H POC ABG pH ABG pH POC ABG pCO2 POC ABG pO2 ABG pO2 ABG HCO3 ABG O2 Saturation ABG Base Excess ABG Hemoglobin Oxyhemoglobin Sodium Potassium Chloride Carbon Dioxide BUN Creatinine Glucose POC Glucose Lactic Acid Calcium Phosphorus Magnesium Total Bilirubin Direct Bilirubin AST ALT Alkaline Phosphatase Total Protein Albumin Lipase Urine WBC (Auto) > 182.0 H U Epithel Cells (Auto) 21.0 H Urine Creatinine 76.6 H Hepatitis C Antibody 07/16/19 07/17/19 07/17/19 23:27 00:03 00:03 WBC RBC Hgb Hct RDW Plt Count [place] % (Auto) [place] # Seg Neutrophils % Seg Neuts % (Manual) Lymphocytes % (Manual) Monocytes % (Manual) Eosinophils % (Manual) Seg Neutrophils # Seg Neutrophils # Man Lymphocytes # (Manual) Monocytes # (Manual) Eosinophils # (Manual) PT INR POC ABG pH 7.093 L ABG pH POC ABG pCO2 32.8 L POC ABG pO2 66 L ABG pO2 ABG HCO3 ABG O2 Saturation ABG Base Excess ABG Hemoglobin Oxyhemoglobin Sodium 148 H D Potassium Chloride 120.5 H Carbon Dioxide 14 L BUN 35 H Creatinine 1.5 H Glucose 42 L POC Glucose Lactic Acid 2.90 H* Calcium 5.7 L* D Phosphorus Magnesium Total Bilirubin Direct Bilirubin AST ALT Alkaline Phosphatase Total Protein Albumin Lipase Urine WBC (Auto) U Epithel Cells (Auto) Urine Creatinine Hepatitis C Antibody 07/17/19 07/17/19 07/17/19 03:01 03:29 03:40 WBC 13.2 H RBC Hgb Hct RDW Plt Count 116 L [place] % (Auto) [place] # Seg Neutrophils % Seg Neuts % (Manual) Lymphocytes % (Manual) 9.0 L Monocytes % (Manual) Eosinophils % (Manual) 24.0 H Seg Neutrophils # Seg Neutrophils # Man 8.6 H Lymphocytes # (Manual) Monocytes # (Manual) Eosinophils # (Manual) 3.2 H PT INR POC ABG pH 6.981 L ABG pH POC ABG pCO2 55.6 H POC ABG pO2 ABG pO2 ABG HCO3 ABG O2 Saturation ABG Base Excess ABG Hemoglobin Oxyhemoglobin Sodium Potassium Chloride Carbon Dioxide BUN Creatinine Glucose POC Glucose 64 L Lactic Acid Calcium Phosphorus Magnesium Total Bilirubin Direct Bilirubin AST ALT Alkaline Phosphatase Total Protein Albumin Lipase Urine WBC (Auto) U Epithel Cells (Auto) Urine Creatinine Hepatitis C Antibody 07/17/19 07/17/19 07/17/19 03:40 03:40 04:08 WBC RBC Hgb Hct RDW Plt Count [place] % (Auto) [place] # Seg Neutrophils % Seg Neuts % (Manual) Lymphocytes % (Manual) Monocytes % (Manual) Eosinophils % (Manual) Seg Neutrophils # Seg Neutrophils # Man Lymphocytes # (Manual) Monocytes # (Manual) Eosinophils # (Manual) PT INR POC ABG pH 7.056 L ABG pH POC ABG pCO2 POC ABG pO2 63 L ABG pO2 ABG HCO3 ABG O2 Saturation ABG Base Excess ABG Hemoglobin Oxyhemoglobin Sodium 147 H Potassium Chloride 120.2 H Carbon Dioxide 14 L BUN 36 H Creatinine 1.6 H Glucose POC Glucose Lactic Acid 3.20 H* Calcium 6.0 L Phosphorus Magnesium Total Bilirubin Direct Bilirubin AST ALT Alkaline Phosphatase Total Protein Albumin Lipase Urine WBC (Auto) U Epithel Cells (Auto) Urine Creatinine Hepatitis C Antibody 07/17/19 07/17/19 07/17/19 05:33 05:45 06:51 WBC RBC Hgb Hct RDW Plt Count [place] % (Auto) [place] # Seg Neutrophils % Seg Neuts % (Manual) Lymphocytes % (Manual) Monocytes % (Manual) Eosinophils % (Manual) Seg Neutrophils # Seg Neutrophils # Man Lymphocytes # (Manual) Monocytes # (Manual) Eosinophils # (Manual) PT INR POC ABG pH 7.061 L ABG pH POC ABG pCO2 49.0 H POC ABG pO2 ABG pO2 ABG HCO3 ABG O2 Saturation ABG Base Excess ABG Hemoglobin Oxyhemoglobin Sodium Potassium Chloride Carbon Dioxide BUN Creatinine Glucose POC Glucose 64 L 239 H Lactic Acid Calcium Phosphorus Magnesium Total Bilirubin Direct Bilirubin AST ALT Alkaline Phosphatase Total Protein Albumin Lipase Urine WBC (Auto) U Epithel Cells (Auto) Urine Creatinine Hepatitis C Antibody 07/17/19 07/17/19 07/17/19 10:57 12:56 18:11 WBC RBC Hgb Hct RDW Plt Count [place] % (Auto) [place] # Seg Neutrophils % Seg Neuts % (Manual) Lymphocytes % (Manual) Monocytes % (Manual) Eosinophils % (Manual) Seg Neutrophils # Seg Neutrophils # Man Lymphocytes # (Manual) Monocytes # (Manual) Eosinophils # (Manual) PT INR POC ABG pH ABG pH 7.192 L* POC ABG pCO2 POC ABG pO2 ABG pO2 67.5 L ABG HCO3 16.3 L ABG O2 Saturation 92.6 L ABG Base Excess -11.4 L ABG Hemoglobin Oxyhemoglobin 91.1 L Sodium Potassium Chloride Carbon Dioxide BUN Creatinine Glucose POC Glucose 107 H 122 H Lactic Acid Calcium Phosphorus Magnesium Total Bilirubin Direct Bilirubin AST ALT Alkaline Phosphatase Total Protein Albumin Lipase Urine WBC (Auto) U Epithel Cells (Auto) Urine Creatinine Hepatitis C Antibody 07/17/19 07/17/19 07/18/19 23:34 Unknown 04:00 WBC RBC Hgb Hct RDW Plt Count 85 L [place] % (Auto) [place] # Seg Neutrophils % Seg Neuts % (Manual) 82.0 H Lymphocytes % (Manual) 2.0 L Monocytes % (Manual) 12.0 H Eosinophils % (Manual) Seg Neutrophils # Seg Neutrophils # Man Lymphocytes # (Manual) 0.2 L Monocytes # (Manual) 1.1 H Eosinophils # (Manual) PT INR POC ABG pH ABG pH 7.237 L POC ABG pCO2 POC ABG pO2 ABG pO2 142.4 H ABG HCO3 17.0 L ABG O2 Saturation ABG Base Excess -9.8 L ABG Hemoglobin Oxyhemoglobin Sodium Potassium Chloride Carbon Dioxide BUN Creatinine Glucose POC Glucose 136 H Lactic Acid Calcium Phosphorus Magnesium Total Bilirubin Direct Bilirubin AST ALT Alkaline Phosphatase Total Protein Albumin Lipase Urine WBC (Auto) U Epithel Cells (Auto) Urine Creatinine Hepatitis C Antibody 07/18/19 07/18/19 07/18/19 04:00 05:31 05:51 WBC RBC Hgb Hct RDW Plt Count [place] % (Auto) [place] # Seg Neutrophils % Seg Neuts % (Manual) Lymphocytes % (Manual) Monocytes % (Manual) Eosinophils % (Manual) Seg Neutrophils # Seg Neutrophils # Man Lymphocytes # (Manual) Monocytes # (Manual) Eosinophils # (Manual) PT INR POC ABG pH 7.239 L ABG pH POC ABG pCO2 56.9 H POC ABG pO2 ABG pO2 ABG HCO3 ABG O2 Saturation ABG Base Excess ABG Hemoglobin Oxyhemoglobin Sodium 151 H Potassium 3.2 L D Chloride 114.7 H Carbon Dioxide BUN 42 H Creatinine 2.1 H Glucose 130 H POC Glucose 135 H Lactic Acid Calcium 6.0 L Phosphorus Magnesium Total Bilirubin 2.10 H Direct Bilirubin AST 59 H ALT 62 H Alkaline Phosphatase Total Protein 4.8 L D Albumin 2.0 L Lipase Urine WBC (Auto) U Epithel Cells (Auto) Urine Creatinine Hepatitis C Antibody 07/18/19 07/18/19 07/18/19 12:05 18:30 23:40 WBC RBC Hgb Hct RDW Plt Count [place] % (Auto) [place] # Seg Neutrophils % Seg Neuts % (Manual) Lymphocytes % (Manual) Monocytes % (Manual) Eosinophils % (Manual) Seg Neutrophils # Seg Neutrophils # Man Lymphocytes # (Manual) Monocytes # (Manual) Eosinophils # (Manual) PT INR POC ABG pH ABG pH POC ABG pCO2 POC ABG pO2 ABG pO2 ABG HCO3 ABG O2 Saturation ABG Base Excess ABG Hemoglobin Oxyhemoglobin Sodium Potassium Chloride Carbon Dioxide BUN Creatinine Glucose POC Glucose 126 H 131 H 163 H Lactic Acid Calcium Phosphorus Magnesium Total Bilirubin Direct Bilirubin AST ALT Alkaline Phosphatase Total Protein Albumin Lipase Urine WBC (Auto) U Epithel Cells (Auto) Urine Creatinine Hepatitis C Antibody 07/19/19 07/19/19 07/19/19 03:35 04:57 08:15 WBC 11.1 H RBC 3.64 L Hgb Hct RDW Plt Count 71 L [place] % (Auto) [place] # Seg Neutrophils % Seg Neuts % (Manual) Lymphocytes % (Manual) Monocytes % (Manual) Eosinophils % (Manual) Seg Neutrophils # Seg Neutrophils # Man Lymphocytes # (Manual) Monocytes # (Manual) Eosinophils # (Manual) PT INR POC ABG pH ABG pH 7.296 L POC ABG pCO2 POC ABG pO2 ABG pO2 78.7 L ABG HCO3 26.4 H ABG O2 Saturation ABG Base Excess ABG Hemoglobin 11.1 L Oxyhemoglobin 93.3 L Sodium Potassium Chloride Carbon Dioxide BUN Creatinine Glucose POC Glucose 170 H Lactic Acid Calcium Phosphorus Magnesium Total Bilirubin Direct Bilirubin AST ALT Alkaline Phosphatase Total Protein Albumin Lipase Urine WBC (Auto) U Epithel Cells (Auto) Urine Creatinine Hepatitis C Antibody 07/19/19 07/19/19 07/19/19 08:15 12:34 18:32 WBC RBC Hgb Hct RDW Plt Count [place] % (Auto) [place] # Seg Neutrophils % Seg Neuts % (Manual) Lymphocytes % (Manual) Monocytes % (Manual) Eosinophils % (Manual) Seg Neutrophils # Seg Neutrophils # Man Lymphocytes # (Manual) Monocytes # (Manual) Eosinophils # (Manual) PT INR POC ABG pH ABG pH POC ABG pCO2 POC ABG pO2 ABG pO2 ABG HCO3 ABG O2 Saturation ABG Base Excess ABG Hemoglobin Oxyhemoglobin Sodium 146 H Potassium 2.9 L* Chloride 107.9 H Carbon Dioxide BUN 35 H Creatinine 1.5 H Glucose 156 H POC Glucose 160 H 138 H Lactic Acid Calcium 6.6 L Phosphorus Magnesium Total Bilirubin Direct Bilirubin AST ALT Alkaline Phosphatase Total Protein Albumin Lipase Urine WBC (Auto) U Epithel Cells (Auto) Urine Creatinine Hepatitis C Antibody 07/19/19 07/19/19 07/20/19 23:41 Unknown 04:20 WBC RBC Hgb Hct RDW Plt Count [place] % (Auto) [place] # Seg Neutrophils % Seg Neuts % (Manual) Lymphocytes % (Manual) Monocytes % (Manual) Eosinophils % (Manual) Seg Neutrophils # Seg Neutrophils # Man Lymphocytes # (Manual) Monocytes # (Manual) Eosinophils # (Manual) PT INR POC ABG pH ABG pH 7.316 L POC ABG pCO2 POC ABG pO2 ABG pO2 ABG HCO3 27.9 H ABG O2 Saturation ABG Base Excess ABG Hemoglobin Oxyhemoglobin 94.0 L Sodium 149 H Potassium 3.2 L Chloride 112.3 H Carbon Dioxide BUN 34 H Creatinine Glucose 162 H POC Glucose 145 H Lactic Acid Calcium 7.0 L Phosphorus Magnesium 1.50 L Total Bilirubin Direct Bilirubin AST ALT Alkaline Phosphatase Total Protein Albumin Lipase Urine WBC (Auto) U Epithel Cells (Auto) Urine Creatinine Hepatitis C Antibody 07/20/19 07/20/19 07/20/19 05:25 07:50 07:50 WBC 12.6 H RBC 3.51 L Hgb Hct RDW Plt Count 56 L [place] % (Auto) [place] # Seg Neutrophils % Seg Neuts % (Manual) 89.0 H Lymphocytes % (Manual) 5.0 L Monocytes % (Manual) Eosinophils % (Manual) Seg Neutrophils # Seg Neutrophils # Man 11.2 H Lymphocytes # (Manual) 0.6 L Monocytes # (Manual) Eosinophils # (Manual) PT INR POC ABG pH ABG pH POC ABG pCO2 POC ABG pO2 ABG pO2 ABG HCO3 ABG O2 Saturation ABG Base Excess ABG Hemoglobin Oxyhemoglobin Sodium 151 H Potassium 3.4 L Chloride 114.7 H Carbon Dioxide 31 H BUN 30 H Creatinine Glucose 148 H POC Glucose 141 H Lactic Acid Calcium 7.3 L Phosphorus Magnesium Total Bilirubin Direct Bilirubin AST ALT Alkaline Phosphatase Total Protein Albumin Lipase Urine WBC (Auto) U Epithel Cells (Auto) Urine Creatinine Hepatitis C Antibody 07/20/19 07/20/19 07/20/19 15:47 17:25 23:57 WBC RBC Hgb Hct RDW Plt Count [place] % (Auto) [place] # Seg Neutrophils % Seg Neuts % (Manual) Lymphocytes % (Manual) Monocytes % (Manual) Eosinophils % (Manual) Seg Neutrophils # Seg Neutrophils # Man Lymphocytes # (Manual) Monocytes # (Manual) Eosinophils # (Manual) PT INR POC ABG pH ABG pH POC ABG pCO2 POC ABG pO2 ABG pO2 ABG HCO3 ABG O2 Saturation ABG Base Excess ABG Hemoglobin Oxyhemoglobin Sodium Potassium Chloride Carbon Dioxide BUN Creatinine Glucose POC Glucose 160 H 165 H 122 H Lactic Acid Calcium Phosphorus Magnesium Total Bilirubin Direct Bilirubin AST ALT Alkaline Phosphatase Total Protein Albumin Lipase Urine WBC (Auto) U Epithel Cells (Auto) Urine Creatinine Hepatitis C Antibody 07/21/19 07/21/19 07/21/19 05:00 05:00 05:00 WBC 15.8 H RBC Hgb Hct RDW Plt Count 56 L [place] % (Auto) [place] # Seg Neutrophils % Seg Neuts % (Manual) Lymphocytes % (Manual) Monocytes % (Manual) Eosinophils % (Manual) Seg Neutrophils # Seg Neutrophils # Man Lymphocytes # (Manual) Monocytes # (Manual) Eosinophils # (Manual) PT INR POC ABG pH ABG pH POC ABG pCO2 POC ABG pO2 ABG pO2 ABG HCO3 ABG O2 Saturation ABG Base Excess ABG Hemoglobin Oxyhemoglobin Sodium 147 H Potassium 3.5 L Chloride 111.4 H Carbon Dioxide BUN 21 H Creatinine Glucose 107 H POC Glucose Lactic Acid Calcium 7.6 L Phosphorus 1.60 L Magnesium Total Bilirubin 4.80 H Direct Bilirubin AST 48 H ALT Alkaline Phosphatase 131 H Total Protein 4.3 L Albumin 1.5 L Lipase Urine WBC (Auto) U Epithel Cells (Auto) Urine Creatinine Hepatitis C Antibody 07/21/19 07/21/19 07/21/19 05:34 12:12 18:22 WBC RBC Hgb Hct RDW Plt Count [place] % (Auto) [place] # Seg Neutrophils % Seg Neuts % (Manual) Lymphocytes % (Manual) Monocytes % (Manual) Eosinophils % (Manual) Seg Neutrophils # Seg Neutrophils # Man Lymphocytes # (Manual) Monocytes # (Manual) Eosinophils # (Manual) PT INR POC ABG pH ABG pH POC ABG pCO2 POC ABG pO2 ABG pO2 ABG HCO3 ABG O2 Saturation ABG Base Excess ABG Hemoglobin Oxyhemoglobin Sodium Potassium Chloride Carbon Dioxide BUN Creatinine Glucose POC Glucose 119 H 108 H 125 H Lactic Acid Calcium Phosphorus Magnesium Total Bilirubin Direct Bilirubin AST ALT Alkaline Phosphatase Total Protein Albumin Lipase Urine WBC (Auto) U Epithel Cells (Auto) Urine Creatinine Hepatitis C Antibody 07/21/19 07/21/19 07/22/19 23:27 Unknown 04:25 WBC RBC Hgb Hct RDW Plt Count [place] % (Auto) [place] # Seg Neutrophils % Seg Neuts % (Manual) Lymphocytes % (Manual) Monocytes % (Manual) Eosinophils % (Manual) Seg Neutrophils # Seg Neutrophils # Man Lymphocytes # (Manual) Monocytes # (Manual) Eosinophils # (Manual) PT INR POC ABG pH ABG pH POC ABG pCO2 POC ABG pO2 ABG pO2 61.9 L 68.7 L ABG HCO3 28.9 H 29.1 H ABG O2 Saturation 93.5 L 94.4 L ABG Base Excess 3.5 H ABG Hemoglobin 10.8 L 11.5 L Oxyhemoglobin 91.6 L 92.3 L Sodium Potassium Chloride Carbon Dioxide BUN Creatinine Glucose POC Glucose 126 H Lactic Acid Calcium Phosphorus Magnesium Total Bilirubin Direct Bilirubin AST ALT Alkaline Phosphatase Total Protein Albumin Lipase Urine WBC (Auto) U Epithel Cells (Auto) Urine Creatinine Hepatitis C Antibody 0807/22/19 07/22/19 05:25 07:00 07:00 WBC 14.9 H RBC Hgb Hct RDW Plt Count 87 L [place] % (Auto) [place] # Seg Neutrophils % Seg Neuts % (Manual) Lymphocytes % (Manual) Monocytes % (Manual) Eosinophils % (Manual) Seg Neutrophils # Seg Neutrophils # Man Lymphocytes # (Manual) Monocytes # (Manual) Eosinophils # (Manual) PT INR POC ABG pH ABG pH POC ABG pCO2 POC ABG pO2 ABG pO2 ABG HCO3 ABG O2 Saturation ABG Base Excess ABG Hemoglobin Oxyhemoglobin Sodium 147 H Potassium 3.3 L Chloride 110.9 H Carbon Dioxide BUN Creatinine 0.6 L Glucose 107 H POC Glucose 107 H Lactic Acid Calcium 7.5 L Phosphorus Magnesium Total Bilirubin Direct Bilirubin AST ALT Alkaline Phosphatase Total Protein Albumin Lipase Urine WBC (Auto) U Epithel Cells (Auto) Urine Creatinine Hepatitis C Antibody 07/22/19 07/22/19 07/23/19 17:41 23:40 04:50 WBC RBC Hgb Hct RDW Plt Count [place] % (Auto) [place] # Seg Neutrophils % Seg Neuts % (Manual) Lymphocytes % (Manual) Monocytes % (Manual) Eosinophils % (Manual) Seg Neutrophils # Seg Neutrophils # Man Lymphocytes # (Manual) Monocytes # (Manual) Eosinophils # (Manual) PT INR POC ABG pH ABG pH POC ABG pCO2 POC ABG pO2 ABG pO2 ABG HCO3 ABG O2 Saturation ABG Base Excess ABG Hemoglobin Oxyhemoglobin Sodium Potassium Chloride Carbon Dioxide BUN Creatinine 0.6 L Glucose 102 H POC Glucose 132 H 123 H Lactic Acid Calcium 7.8 L Phosphorus Magnesium 1.50 L Total Bilirubin Direct Bilirubin AST ALT Alkaline Phosphatase Total Protein Albumin Lipase Urine WBC (Auto) U Epithel Cells (Auto) Urine Creatinine Hepatitis C Antibody 07/23/19 07/23/19 07/23/19 05:00 10:50 10:50 WBC 13.0 H RBC 3.41 L Hgb Hct RDW Plt Count 100 L [place] % (Auto) [place] # Seg Neutrophils % Seg Neuts % (Manual) Lymphocytes % (Manual) Monocytes % (Manual) Eosinophils % (Manual) Seg Neutrophils # Seg Neutrophils # Man Lymphocytes # (Manual) Monocytes # (Manual) Eosinophils # (Manual) PT INR POC ABG pH ABG pH POC ABG pCO2 POC ABG pO2 ABG pO2 100.4 H ABG HCO3 28.7 H ABG O2 Saturation ABG Base Excess ABG Hemoglobin 11.0 L Oxyhemoglobin Sodium Potassium Chloride Carbon Dioxide BUN Creatinine Glucose POC Glucose Lactic Acid Calcium Phosphorus Magnesium Total Bilirubin 2.60 H Direct Bilirubin 2.2 H AST 41 H ALT Alkaline Phosphatase Total Protein 4.4 L Albumin 1.4 L Lipase Urine WBC (Auto) U Epithel Cells (Auto) Urine Creatinine Hepatitis C Antibody 07/23/19 07/23/19 07/23/19 11:49 11:49 17:42 WBC RBC Hgb Hct RDW Plt Count [place] % (Auto) [place] # Seg Neutrophils % Seg Neuts % (Manual) Lymphocytes % (Manual) Monocytes % (Manual) Eosinophils % (Manual) Seg Neutrophils # Seg Neutrophils # Man Lymphocytes # (Manual) Monocytes # (Manual) Eosinophils # (Manual) PT INR POC ABG pH ABG pH POC ABG pCO2 POC ABG pO2 ABG pO2 ABG HCO3 ABG O2 Saturation ABG Base Excess ABG Hemoglobin Oxyhemoglobin Sodium Potassium Chloride Carbon Dioxide BUN Creatinine Glucose POC Glucose 109 H 124 H Lactic Acid Calcium Phosphorus Magnesium Total Bilirubin Direct Bilirubin AST ALT Alkaline Phosphatase Total Protein Albumin Lipase Urine WBC (Auto) U Epithel Cells (Auto) Urine Creatinine Hepatitis C Antibody Reactive A 07/23/19 07/24/19 07/24/19 23:37 03:34 03:34 WBC 13.7 H RBC 3.39 L Hgb Hct 29.9 L RDW Plt Count 116 L [place] % (Auto) [place] # Seg Neutrophils % 77.7 H Seg Neuts % (Manual) Lymphocytes % (Manual) Monocytes % (Manual) Eosinophils % (Manual) Seg Neutrophils # 10.6 H Seg Neutrophils # Man Lymphocytes # (Manual) Monocytes # (Manual) Eosinophils # (Manual) PT INR POC ABG pH ABG pH POC ABG pCO2 POC ABG pO2 ABG pO2 ABG HCO3 ABG O2 Saturation ABG Base Excess ABG Hemoglobin Oxyhemoglobin Sodium Potassium 3.3 L Chloride Carbon Dioxide 35 H BUN Creatinine 0.6 L Glucose 139 H POC Glucose 145 H Lactic Acid Calcium 7.7 L Phosphorus Magnesium Total Bilirubin Direct Bilirubin AST ALT Alkaline Phosphatase Total Protein Albumin Lipase Urine WBC (Auto) U Epithel Cells (Auto) Urine Creatinine Hepatitis C Antibody 07/24/19 07/24/19 07/24/19 04:50 05:11 11:29 WBC RBC Hgb Hct RDW Plt Count [place] % (Auto) [place] # Seg Neutrophils % Seg Neuts % (Manual) Lymphocytes % (Manual) Monocytes % (Manual) Eosinophils % (Manual) Seg Neutrophils # Seg Neutrophils # Man Lymphocytes # (Manual) Monocytes # (Manual) Eosinophils # (Manual) PT INR POC ABG pH ABG pH 7.457 H POC ABG pCO2 POC ABG pO2 ABG pO2 138.3 H ABG HCO3 32.1 H ABG O2 Saturation ABG Base Excess 7.4 H ABG Hemoglobin 8.2 L Oxyhemoglobin Sodium Potassium Chloride Carbon Dioxide BUN Creatinine Glucose POC Glucose 128 H 123 H Lactic Acid Calcium Phosphorus Magnesium Total Bilirubin Direct Bilirubin AST ALT Alkaline Phosphatase Total Protein Albumin Lipase Urine WBC (Auto) U Epithel Cells (Auto) Urine Creatinine Hepatitis C Antibody 07/24/19 07/24/19 07/25/19 17:50 23:39 04:09 WBC 12.5 H RBC 3.13 L Hgb 9.3 L Hct 27.7 L RDW Plt Count [place] % (Auto) [place] # Seg Neutrophils % 77.2 H Seg Neuts % (Manual) Lymphocytes % (Manual) Monocytes % (Manual) Eosinophils % (Manual) Seg Neutrophils # 9.6 H Seg Neutrophils # Man Lymphocytes # (Manual) Monocytes # (Manual) Eosinophils # (Manual) PT INR POC ABG pH ABG pH POC ABG pCO2 POC ABG pO2 ABG pO2 ABG HCO3 ABG O2 Saturation ABG Base Excess ABG Hemoglobin Oxyhemoglobin Sodium Potassium Chloride Carbon Dioxide BUN Creatinine Glucose POC Glucose 125 H 144 H Lactic Acid Calcium Phosphorus Magnesium Total Bilirubin Direct Bilirubin AST ALT Alkaline Phosphatase Total Protein Albumin Lipase Urine WBC (Auto) U Epithel Cells (Auto) Urine Creatinine Hepatitis C Antibody 07/25/19 07/25/19 07/25/19 04:09 05:12 05:29 WBC RBC Hgb Hct RDW Plt Count [place] % (Auto) [place] # Seg Neutrophils % Seg Neuts % (Manual) Lymphocytes % (Manual) Monocytes % (Manual) Eosinophils % (Manual) Seg Neutrophils # Seg Neutrophils # Man Lymphocytes # (Manual) Monocytes # (Manual) Eosinophils # (Manual) PT INR POC ABG pH ABG pH POC ABG pCO2 POC ABG pO2 ABG pO2 65.7 L ABG HCO3 33.6 H ABG O2 Saturation 92.8 L ABG Base Excess 7.9 H ABG Hemoglobin 11.9 L Oxyhemoglobin 90.7 L Sodium Potassium 3.1 L Chloride Carbon Dioxide 34 H BUN Creatinine 0.6 L Glucose 159 H POC Glucose 168 H Lactic Acid Calcium 7.5 L Phosphorus Magnesium Total Bilirubin 1.30 H Direct Bilirubin AST ALT Alkaline Phosphatase Total Protein 4.8 L Albumin 1.4 L Lipase Urine WBC (Auto) U Epithel Cells (Auto) Urine Creatinine Hepatitis C Antibody 07/25/19 07/25/19 07/26/19 11:34 23:30 04:25 WBC RBC Hgb Hct RDW Plt Count [place] % (Auto) [place] # Seg Neutrophils % Seg Neuts % (Manual) Lymphocytes % (Manual) Monocytes % (Manual) Eosinophils % (Manual) Seg Neutrophils # Seg Neutrophils # Man Lymphocytes # (Manual) Monocytes # (Manual) Eosinophils # (Manual) PT INR POC ABG pH ABG pH POC ABG pCO2 POC ABG pO2 ABG pO2 101.9 H ABG HCO3 32.0 H ABG O2 Saturation ABG Base Excess 6.5 H ABG Hemoglobin 9.9 L Oxyhemoglobin Sodium Potassium Chloride Carbon Dioxide BUN Creatinine Glucose POC Glucose 124 H 126 H Lactic Acid Calcium Phosphorus Magnesium Total Bilirubin Direct Bilirubin AST ALT Alkaline Phosphatase Total Protein Albumin Lipase Urine WBC (Auto) U Epithel Cells (Auto) Urine Creatinine Hepatitis C Antibody 07/26/19 07/26/19 07/26/19 05:00 05:00 05:38 WBC 12.3 H RBC 3.11 L Hgb 9.2 L Hct 28.2 L RDW 15.4 H Plt Count [place] % (Auto) 7.8 H [place] # 1.0 H Seg Neutrophils % 73.0 H Seg Neuts % (Manual) Lymphocytes % (Manual) Monocytes % (Manual) Eosinophils % (Manual) Seg Neutrophils # 8.9 H Seg Neutrophils # Man Lymphocytes # (Manual) Monocytes # (Manual) Eosinophils # (Manual) PT INR POC ABG pH ABG pH POC ABG pCO2 POC ABG pO2 ABG pO2 ABG HCO3 ABG O2 Saturation ABG Base Excess ABG Hemoglobin Oxyhemoglobin Sodium Potassium Chloride Carbon Dioxide 32 H BUN Creatinine Glucose 135 H POC Glucose 145 H Lactic Acid Calcium 7.9 L Phosphorus Magnesium Total Bilirubin Direct Bilirubin AST ALT Alkaline Phosphatase Total Protein Albumin Lipase Urine WBC (Auto) U Epithel Cells (Auto) Urine Creatinine Hepatitis C Antibody 07/26/19 11:16 WBC RBC Hgb Hct RDW Plt Count [place] % (Auto) [place] # Seg Neutrophils % Seg Neuts % (Manual) Lymphocytes % (Manual) Monocytes % (Manual) Eosinophils % (Manual) Seg Neutrophils # Seg Neutrophils # Man Lymphocytes # (Manual) Monocytes # (Manual) Eosinophils # (Manual) PT INR POC ABG pH ABG pH POC ABG pCO2 POC ABG pO2 ABG pO2 ABG HCO3 ABG O2 Saturation ABG Base Excess ABG Hemoglobin Oxyhemoglobin Sodium Potassium Chloride Carbon Dioxide BUN Creatinine Glucose POC Glucose 140 H Lactic Acid Calcium Phosphorus Magnesium Total Bilirubin Direct Bilirubin AST ALT Alkaline Phosphatase Total Protein Albumin Lipase Urine WBC (Auto) U Epithel Cells (Auto) Urine Creatinine Hepatitis C Antibody Chest x-ray: report reviewed, image reviewed
[2019-07-26] MEDS: TYLENOL PO PRN ×2 (16:49→21:00)
--- NOTE | 2019-07-26 16:58 | Progress Note ---
Assessment and Plan - Patient Problems (1) Acute kidney injury (CRISTIAN) with acute tubular necrosis (ATN) Current Visit: Yes Status: Acute Plan to address problem: Kidney function has improved. Follow-up electrolytes and renal function (2) Fluid overload Current Visit: Yes Status: Acute Plan to address problem: Diuresing briskly with Bumex and hydrochlorothiazide. Follow up volume status, electrolytes and renal function (3) Hypernatremia Current Visit: Yes Status: Acute Plan to address problem: Hypernatremia: Sodium is now improving. Continue free water replacement orally. (4) Pyelonephritis, acute Current Visit: Yes Status: Acute Plan to address problem: Continue antibiotics. (5) Hypokalemia Current Visit: Yes Status: Acute Plan to address problem: Supplement potassium and follow-up level. (6) Acute respiratory failure Current Visit: Yes Status: Acute Plan to address problem: Continue ventilator management (7) Elevated LFTs Current Visit: Yes Status: Acute Plan to address problem: Ischemic Hepatitis. Follow-up liver function tests (8) Septic shock Current Visit: Yes Status: Acute Plan to address problem: Off of Levophed. Concerned about cholecystitis. Pending HIDA scan. Continue antibiotics per infectious disease appropriately adjusted to the degree of renal function (9) Cellulitis of right foot Current Visit: Yes Status: Resolved Plan to address problem: Continue antibiotics Subjective Date of service: 07/26/19 Principal diagnosis: Acute respiratory failure Interval history: Patient seen lying in bed. Intubated on ventilator. No Family at bedside. Not following commands. Still off of Levophed . FiO2 55% Objective - Exam Narrative Exam: Young female lying in bed intubated on the ventilator before meals 450/26/55% HEENT: NCAT, endotracheal tube intact Neck: Supple, no venous distention CVS: S1S2 RRR with no murmur, rub or gallop Chest: Coarse breath sounds Abdomen: Protuberant, soft, nontender, no organomegaly, bowel sounds are present Extremities: 2+edema improving and dressing intact Neuro: Less agitated's morning, intubated on ventilator - Vital Signs Vital signs: Vital Signs - 12hr 07/26/19 07/26/19 07/26/19 05:00 05:30 06:00 Temperature Pulse Rate 101 H 105 H 103 H Pulse Rate [ From Monitor] Respiratory 26 H 27 H 25 H Rate Respiratory Rate [Bilateral Flank] Blood Pressure 106/48 111/50 107/48 O2 Sat by Pulse 98 98 98 Oximetry 07/26/19 07/26/19 07/26/19 06:30 07:00 07:28 Temperature Pulse Rate 104 H 99 H 105 H Pulse Rate [ From Monitor] Respiratory 26 H 26 H Rate Respiratory Rate [Bilateral Flank] Blood Pressure 103/51 102/48 116/55 O2 Sat by Pulse 97 98 97 Oximetry 07/26/19 07/26/19 07/26/19 07:30 08:00 08:30 Temperature 102.0 F H Pulse Rate 107 H 100 H 100 H Pulse Rate [ From Monitor] Respiratory 26 H 26 H 26 H Rate Respiratory Rate [Bilateral Flank] Blood Pressure 116/55 101/47 101/48 O2 Sat by Pulse 97 97 97 Oximetry 07/26/19 07/26/19 07/26/19 09:00 09:30 10:00 Temperature Pulse Rate 101 H 100 H 95 H Pulse Rate [ From Monitor] Respiratory 26 H 26 H 26 H Rate Respiratory 26 H Rate [Bilateral Flank] Blood Pressure 104/49 104/49 105/49 O2 Sat by Pulse 97 97 97 Oximetry 07/26/19 07/26/19 07/26/19 10:30 11:00 11:30 Temperature Pulse Rate 106 H 109 H 108 H Pulse Rate [ From Monitor] Respiratory 26 H 26 H 13 Rate Respiratory Rate [Bilateral Flank] Blood Pressure 111/52 114/57 120/63 O2 Sat by Pulse 96 96 97 Oximetry 07/26/19 07/26/19 07/26/19 11:42 12:00 12:30 Temperature 101.5 F H Pulse Rate 104 H 108 H 100 H Pulse Rate [ 103 H From Monitor] Respiratory 26 H 26 H Rate Respiratory Rate [Bilateral Flank] Blood Pressure 120/63 103/54 103/55 O2 Sat by Pulse 96 96 96 Oximetry 07/26/19 07/26/19 07/26/19 13:00 13:30 14:00 Temperature Pulse Rate 98 H 95 H 100 H Pulse Rate [ From Monitor] Respiratory 26 H 26 H 26 H Rate Respiratory Rate [Bilateral Flank] Blood Pressure 102/56 106/57 111/62 O2 Sat by Pulse 96 97 97 Oximetry 07/26/19 07/26/19 07/26/19 14:30 15:00 15:26 Temperature Pulse Rate 102 H 112 H 105 H Pulse Rate [ From Monitor] Respiratory 26 H 16 Rate Respiratory Rate [Bilateral Flank] Blood Pressure 109/59 119/66 119/66 O2 Sat by Pulse 96 96 96 Oximetry 07/26/19 07/26/19 07/26/19 15:30 16:00 16:27 Temperature 101 F H Pulse Rate 110 H 108 H 110 H Pulse Rate [ 108 H From Monitor] Respiratory 20 26 H Rate Respiratory Rate [Bilateral Flank] Blood Pressure 107/63 125/66 118/58 O2 Sat by Pulse 96 96 97 Oximetry 07/26/19 16:30 Temperature Pulse Rate 111 H Pulse Rate [ From Monitor] Respiratory 26 H Rate Respiratory Rate [Bilateral Flank] Blood Pressure 118/58 O2 Sat by Pulse 97 Oximetry - Lab 07/26/19 05:00 07/26/19 05:00 Most recent lab results ABG pH 7.419 pH Units (7.350-7.450) 07/26/19 04:25 ABG pCO2 50.5 mm Hg 07/26/19 04:25 ABG pO2 101.9 mm Hg (80.0-90.0) H 07/26/19 04:25 ABG HCO3 32.0 mmol/L (20.0-26.0) H 07/26/19 04:25 ABG O2 Saturation 97.6 % (95.0-99.0) 07/26/19 04:25 Calcium 7.9 mg/dL (8.4-10.2) L 07/26/19 05:00 Phosphorus 2.80 mg/dL (2.5-4.5) 07/26/19 05:00 Magnesium 1.80 mg/dL (1.7-2.3) 07/26/19 05:00 76.6 mg/dL (0.1-20.0) H 07/16/19 14:30 39 mmol/L 07/16/19 14:30 Medications & Allergies - Medications Allergies/Adverse Reactions: Allergies latex Allergy (Verified 06/28/19 17:11) Anaphylaxis tramadol [From Ultram] Allergy (Verified 06/28/19 17:10) Unknown haloperidol [From Haldol] Adverse Reaction (Verified 07/17/19 05:55) Shortness of Breath agitation/combative ketorolac [From Toradol] Adverse Reaction (Verified 06/28/19 17:10) Seizure prochlorperazine [From Compazine] Adverse Reaction (Verified 06/28/19 17:11) Unknown Home Medications: Home Medications Medication Instructions Recorded Confirmed Last Taken Type No Known Home Medications [No 07/16/19 07/16/19 Unknown History Reported Home Medications] Active Medications: Generic Name Dose Route Start Last Admin Trade Name Freq PRN Reason Stop Dose Admin Acetaminophen 650 mg 07/16/19 05:36 07/26/19 16:49 Tylenol PO 650 mg Q4H PRN Administration Pain MILD(1-3)/Fever >100.5/WHALEN Albuterol 2.5 mg 07/16/19 22:48 07/16/19 23:01 Proventil IH 2.5 mg Q4HRT PRN Administration Shortness Of Breath Lipase/Protease/Amylase 1 each 07/18/19 14:34 Pancreaze 10,500 Unit FEEDTUBE PRN PRN For Clogged Feeding Tube Bumetanide 1 mg 07/24/19 10:00 07/26/19 09:31 Bumex IV 1 mg DAILY KASIE Administration Dextrose 50 ml 07/17/19 03:17 07/17/19 05:30 D50w (25gm) Syringe IV 50 ml PRN PRN Administration Hypoglycemia Enoxaparin Sodium 40 mg 07/20/19 10:00 07/26/19 09:31 Lovenox SUB-Q 40 mg QDAY@1000 KASIE Administration Famotidine 20 mg 07/20/19 10:00 07/26/19 09:31 Pepcid PO 20 mg BID KASIE Administration Fentanyl 50 mcg 07/17/19 03:18 07/17/19 04:53 Sublimaze IV 50 mcg Q10MIN PRN Administration ANALGESIA Hydrochlorothiazide 25 mg 07/23/19 10:00 07/26/19 09:31 Hctz PO 25 mg QDAY KASIE Administration Hydromorphone HCl 0.25 mg 07/16/19 05:36 07/21/19 01:07 Dilaudid IV 0.25 mg Q3H PRN Administration Pain, Moderate (4-6) Hydrophilic Ointment 1 applic 07/17/19 03:18 Vaseline Lip Therapy TP Q2HR PRN Dry Lips Midazolam HCl 100 mg/ Sodium 100 mls @ 2 mls/hr 07/17/19 04:00 07/26/19 11:53 Chloride IV 2 mg/hr TITR KASIE 2 mls/hr Titration Protocol 2 MG/HR Fentanyl Citrate 2,000 mcg in 100 mls @ 3.4 mls/hr 07/17/19 04:00 07/26/19 10:15 Fentanyl Drip Premix IV 3 mcg/kg/hr TITR KASIE 10.2 mls/hr Administration Protocol 1 MCG/KG/HR Ceftriaxone Sodium 2 gm in 100 mls @ 200 mls/hr 07/20/19 13:00 07/26/19 11:05 Rocephin/Ns 2 Gm/100 Ml IV 200 mls/hr Q24HR KASIE Administration Protocol Magnesium Sulfate 2 gm in 50 mls @ 25 mls/hr 07/26/19 16:21 07/26/19 16:49 Magnesium Sulfate 2gm/50ml IV 07/26/19 18:20 25 mls/hr ONCE ONE Administration Midazolam HCl 2 mg 07/17/19 03:18 07/20/19 23:32 Versed IV 2 mg Q10MIN PRN Administration Sedation Multi-Ingred Cream/Lotion/Oil/Oint 1 applic 07/17/19 03:18 Artificial Tears Ophth Oint OU Q4HR PRN Dry Eye(s) Nicotine 14 mg 07/16/19 10:00 07/26/19 09:31 Habitrol TD 14 mg QDAY KASIE Administration Ondansetron HCl 4 mg 07/16/19 05:36 07/16/19 21:16 Zofran IV 4 mg Q8H PRN Administration Nausea And Vomiting Oxycodone/Acetaminophen 1 tab 07/16/19 05:36 07/16/19 12:33 Percocet 5/325 PO 1 tab Q6H PRN Administration Pain, Moderate (4-6) Simple Syrup 15 ml 07/18/19 14:34 Simple Syrup FEEDTUBE PRN PRN Hypoglycemia Simple Syrup 30 ml 07/18/19 14:34 Simple Syrup FEEDTUBE PRN PRN Hypoglycemia Sodium Bicarbonate 325 mg 07/18/19 14:34 Sodium Bicarbonate FEEDTUBE PRN PRN For Clogged Feeding Tube Sodium Chloride 10 ml 07/16/19 10:00 07/26/19 10:00 Sodium Chloride Flush Syringe 10 Ml IV 10 ml BID KASIE Administration Sodium Chloride 10 ml 07/16/19 05:36 Sodium Chloride Flush Syringe 10 Ml IV PRN PRN LINE FLUSH
--- NOTE | 2019-07-26 17:26 | Progress Note ---
Assessment and Plan /Acute hypoxic respiratory failure; requiring intubation - ARDS Likely from severe sepsis Continue ventilatory support , nebulizers, supportive care Pulmonary critical following, wean as tolerated Requiring high FiO2 to maintain oxygen saturation - trended down to 40% today / Severe sepsis with Septic shock and organ failure/right foot infection/pyelonephritis/bacreremia Secondary to pyelonephritis and Escherichia coli bacteremia. weaned off pressor, Continue abx per ID, /E.coli bacteremia, likely source from pyelonephritis Continue to treat with empiric antibiotic per ID recommendation /Transaminitis - Could be from severe sepsis versus and underlying chronic hepatitis C - trending down LFTs, s/p HIDA scan showed normal study - hepatitis panel showed positive hepatitis C antibody - need further outpatient follow-up / Acute pyelonephritis To be improving. Decreased leukocytosis. She remains critically ill. Overall prognosis remains poor especially with the new diagnosis of ARDS / Cellulitis of right foot, on abx /Acute renal failure due to ATN from severe sepsis Creatinine was 2.2 on admission monitor renal function, Cr now stable / Malnutrition Nutrition corrected by NG tube feedings. Nutrition following /Electrolyte imbalance Hyponatremia -manage with free water with tube feeding Hypokalemia - continue to replete as needed and continue to monitor BMP Hypomagnesemia - replete as needed, continue to follow The high probability of a clinically significant, sudden or life threatening deterioration of the [pulmonary, renal, infectious, metabolic] system(s) required my full and direct attention, intervention and personal management. The aggregate critical care time was [35] minutes. This time is in addition to time spent performing reported procedures but includes the following: [X] Data Review and interpretation [X] Patient assessment and monitoring of vital signs [x] Documentation [x] Medication orders and management Brief history The patient is a 44-year-old female with bipolar disorder presented to the emergency room with right foot pain, abdominal pain and fevers. She previously presented to the emergency room on 06/28/2019 with right foot with redness and pain following a possible spider bite. She was given a prescription for oral Augmentin and was discharged home. Patient stated that she was compliant with Augmentin and also was soaking her right foot in Epsom salts. About 2-3 days prior to admission, she started developing fevers, nausea as well as worsening abdominal pain. She has presented to the emergency room and was hospitalized. She was noted to be septic,Started on empiric antibiotics. She decompensated on the floor and required intubation and transferred to ICU for further management on 07/17/2019. Also required pressors for septic shock, blood culture growing Escherichia coli bacteremia. Patient is now on Lopressor, still intubated with 40% FiO2 and high PEEP. Plan to continue wean off from vent as tolerated and complete her antibiotic regimen for bacteremia. Radiological data: CT abdomen/pelvis: 1. Mild nonspecific left-sided perinephric stranding in this patient with punctate bilateral nonobstructive nephrolithiasis. No asymmetric hydronephrosis or ureteral stone disease. 2. Complex cyst versus mass in the left ovary. Recommend nonemergent follow-up pelvic ultrasound. 3. Mild periportal edema could be related to aggressive hydration therapy. 4. Other incidental findings as outlined above on this limited noncontrast exam with mild motion artifact. Of note, there is a 5 mm nodule in the right middle lobe. Please see below recommendations. Abdomen ultrasound: 1. No gallstones, but the gallbladder wall is thickened and edematous. 2. Small bilateral pleural effusions. Hospitalist Physical General appearance: Present: no acute distress, well-nourished, other (intubated on ventilatory support and sedated) - EENT Eyes: Present: PERRL, EOM intact - Neck Neck: Present: supple, normal ROM - Respiratory Respiratory effort: labored Respiratory: bilateral: diminished, rhonchi, negative: rales, wheezing - Cardiovascular Rhythm: regular Heart Sounds: Present: S1 & S2 - Extremities Extremities: no ischemia, abnormal (cellulites lower extremity) Extremity abnormal: edema - Abdominal General gastrointestinal: soft, non-tender, non-distended, normal bowel sounds - Integumentary Integumentary: Present: clear, warm - Psychiatric Psychiatric: other (intubated on vent) - Neurologic Neurologic: other (intubated on vent) Subjective Date of service: 07/26/19 Principal diagnosis: Acute respiratory failure Interval history: Patient seen and examined Remain intubated with high FiO2 - trended down to 40% FiO2 off pressor support, Tolerating tube feeding Updated family/significant other at bedside Objective - Constitutional Vitals: Vital Signs - 12hr 07/26/19 07/26/19 07/26/19 05:30 06:00 06:30 Temperature Pulse Rate 105 H 103 H 104 H Pulse Rate [ From Monitor] Respiratory 27 H 25 H 26 H Rate Respiratory Rate [Bilateral Flank] Blood Pressure 111/50 107/48 103/51 O2 Sat by Pulse 98 98 97 Oximetry 07/26/19 07/26/19 07/26/19 07:00 07:28 07:30 Temperature Pulse Rate 99 H 105 H 107 H Pulse Rate [ From Monitor] Respiratory 26 H 26 H Rate Respiratory Rate [Bilateral Flank] Blood Pressure 102/48 116/55 116/55 O2 Sat by Pulse 98 97 97 Oximetry 07/26/19 07/26/19 07/26/19 08:00 08:30 09:00 Temperature 102.0 F H Pulse Rate 100 H 100 H 101 H Pulse Rate [ From Monitor] Respiratory 26 H 26 H 26 H Rate Respiratory Rate [Bilateral Flank] Blood Pressure 101/47 101/48 104/49 O2 Sat by Pulse 97 97 97 Oximetry 07/26/19 07/26/19 07/26/19 09:30 10:00 10:30 Temperature Pulse Rate 100 H 95 H 106 H Pulse Rate [ From Monitor] Respiratory 26 H 26 H 26 H Rate Respiratory 26 H Rate [Bilateral Flank] Blood Pressure 104/49 105/49 111/52 O2 Sat by Pulse 97 97 96 Oximetry 07/26/19 07/26/19 07/26/19 11:00 11:30 11:42 Temperature Pulse Rate 109 H 108 H 104 H Pulse Rate [ From Monitor] Respiratory 26 H 13 Rate Respiratory Rate [Bilateral Flank] Blood Pressure 114/57 120/63 120/63 O2 Sat by Pulse 96 97 96 Oximetry 07/26/19 07/26/19 07/26/19 12:00 12:30 13:00 Temperature 101.5 F H Pulse Rate 108 H 100 H 98 H Pulse Rate [ 103 H From Monitor] Respiratory 26 H 26 H 26 H Rate Respiratory Rate [Bilateral Flank] Blood Pressure 103/54 103/55 102/56 O2 Sat by Pulse 96 96 96 Oximetry 07/26/19 07/26/19 07/26/19 13:30 14:00 14:30 Temperature Pulse Rate 95 H 100 H 102 H Pulse Rate [ From Monitor] Respiratory 26 H 26 H 26 H Rate Respiratory Rate [Bilateral Flank] Blood Pressure 106/57 111/62 109/59 O2 Sat by Pulse 97 97 96 Oximetry 07/26/19 07/26/19 07/26/19 15:00 15:26 15:30 Temperature Pulse Rate 112 H 105 H 110 H Pulse Rate [ From Monitor] Respiratory 16 20 Rate Respiratory Rate [Bilateral Flank] Blood Pressure 119/66 119/66 107/63 O2 Sat by Pulse 96 96 96 Oximetry 07/26/19 07/26/19 07/26/19 16:00 16:27 16:30 Temperature 101 F H Pulse Rate 108 H 110 H 111 H Pulse Rate [ 108 H From Monitor] Respiratory 26 H 26 H Rate Respiratory Rate [Bilateral Flank] Blood Pressure 125/66 118/58 118/58 O2 Sat by Pulse 96 97 97 Oximetry 07/26/19 17:00 Temperature 101.0 F H Pulse Rate Pulse Rate [ From Monitor] Respiratory Rate Respiratory Rate [Bilateral Flank] Blood Pressure O2 Sat by Pulse Oximetry - Labs CBC & Chem 7: 07/26/19 05:00 07/26/19 05:00 Labs: Abnormal lab results 07/25/19 07/26/19 07/26/19 Range/Units 23:30 04:25 05:00 WBC (4.5-11.0) K/mm3 RBC (3.65-5.03) M/mm3 Hgb (10.1-14.3) gm/dl Hct (30.3-42.9) % RDW (13.2-15.2) % [place] % (Auto) (0.0-7.3) % [place] # (0.0-0.8) K/mm3 Seg Neutrophils % (40.0-70.0) % Seg Neutrophils # (1.8-7.7) K/mm3 ABG pO2 101.9 H (80.0-90.0) mm Hg ABG HCO3 32.0 H (20.0-26.0) mmol/L ABG Base Excess 6.5 H (-2.0-3.0) mmol/L ABG Hemoglobin 9.9 L (12.0-16.0) gm/dl Carbon Dioxide 32 H (22-30) mmol/L Glucose 135 H (65-100) mg/dL POC Glucose 126 H (70-105) Calcium 7.9 L (8.4-10.2) mg/dL 07/26/19 07/26/19 07/26/19 Range/Units 05:00 05:38 11:16 WBC 12.3 H (4.5-11.0) K/mm3 RBC 3.11 L (3.65-5.03) M/mm3 Hgb 9.2 L (10.1-14.3) gm/dl Hct 28.2 L (30.3-42.9) % RDW 15.4 H (13.2-15.2) % [place] % (Auto) 7.8 H (0.0-7.3) % [place] # 1.0 H (0.0-0.8) K/mm3 Seg Neutrophils % 73.0 H (40.0-70.0) % Seg Neutrophils # 8.9 H (1.8-7.7) K/mm3 ABG pO2 (80.0-90.0) mm Hg ABG HCO3 (20.0-26.0) mmol/L ABG Base Excess (-2.0-3.0) mmol/L ABG Hemoglobin (12.0-16.0) gm/dl Carbon Dioxide (22-30) mmol/L Glucose (65-100) mg/dL POC Glucose 145 H 140 H (70-105) Calcium (8.4-10.2) mg/dL
[2019-07-27] MEDS: fentaNYL DRIP Premix 2,000 MCG/100 ML BAG IV SCH ×3 (02:43→23:40)
[2019-07-27] MEDS: FREE WATER PO SCH ×3 (04:58→09:05)
[2019-07-27 07:10] LABS: BUN/Creatinine Ratio 27; Blood Urea Nitrogen 16 mg/dL (7-17); Calcium 8.2 mg/dL (8.4-10.2); Hemolysis Index 3
[2019-07-27 07:11] LABS: Basophils # (Auto) 0.1 K/mm3 (0.0-0.1); Basophils % (Auto) 0.6 % (0.0-1.8); Eosinophils # (Auto) 0.3 K/mm3 (0.0-0.4); Eosinophils % (Auto) 2.2 % (0.0-4.3); Hematocrit 29.5 % (30.3-42.9); Hemoglobin 9.6 gm/dl (10.1-14.3); Lymphocytes # (Auto) 2.2 K/mm3 (1.2-5.4); Lymphocytes % (Auto) 16.6 % (13.4-35.0); Mean Corpuscular HGB Conc 33 % (30-34); Mean Corpuscular Volume 91 fl (79-97); Monocytes # (Auto) 0.9 K/mm3 (0.0-0.8); Platelet Count 323 K/mm3 (140-440); Red Blood Count 3.26 M/mm3 (3.65-5.03)
--- NOTE | 2019-07-27 10:09 | Progress Note ---
Assessment and Plan - Patient Problems (1) Acute renal failure Current Visit: Yes Status: Acute Plan to address problem: Kidney function has improved. Follow-up electrolytes and renal function (2) Fluid overload Current Visit: Yes Status: Acute Plan to address problem: Diuresing briskly with Bumex and hydrochlorothiazide. changed bumex to po. Follow up volume status, electrolytes and renal function (3) Acute pyelonephritis Current Visit: Yes Status: Acute Plan to address problem: Continue antibiotics. (4) Hypokalemia Current Visit: Yes Status: Acute Plan to address problem: K replete. (5) Elevated LFTs Current Visit: Yes Status: Acute Plan to address problem: Ischemic Hepatitis. Follow-up liver function tests (6) Acute respiratory failure Current Visit: Yes Status: Acute Plan to address problem: Continue ventilator management as per ICU team (7) Cellulitis of right foot Current Visit: Yes Status: Resolved Plan to address problem: Continue antibiotics Subjective Date of service: 07/27/19 Principal diagnosis: Acute respiratory failure Interval history: Pt remains intubated, sedated Objective - Vital Signs Vital signs: Vital Signs - 12hr 07/26/19 07/26/19 07/26/19 22:30 23:00 23:30 Temperature Pulse Rate 81 73 73 Respiratory 20 27 H 26 H Rate Blood Pressure 99/64 89/55 90/54 O2 Sat by Pulse 100 100 100 Oximetry 07/27/19 07/27/19 07/27/19 00:00 00:30 01:00 Temperature 99.9 F H Pulse Rate 74 92 H 77 Respiratory 26 H 26 H 26 H Rate Blood Pressure 98/58 107/64 105/60 O2 Sat by Pulse 100 96 100 Oximetry 07/27/19 07/27/19 07/27/19 01:30 02:00 02:30 Temperature Pulse Rate 79 86 92 H Respiratory 26 H 26 H 26 H Rate Blood Pressure 109/63 110/63 107/64 O2 Sat by Pulse 100 100 97 Oximetry 07/27/19 07/27/19 07/27/19 03:00 03:30 04:00 Temperature 101.3 F H Pulse Rate 97 H 99 H 111 H Respiratory 26 H 26 H 26 H Rate Blood Pressure 109/62 117/66 114/69 O2 Sat by Pulse 93 93 92 Oximetry 07/27/19 07/27/19 07/27/19 04:30 05:00 05:30 Temperature Pulse Rate 105 H 99 H 108 H Respiratory 26 H 26 H 20 Rate Blood Pressure 106/66 103/64 114/69 O2 Sat by Pulse 95 96 92 Oximetry 07/27/19 07/27/19 07/27/19 06:00 06:30 07:00 Temperature Pulse Rate 113 H 113 H 110 H Respiratory 20 26 H 26 H Rate Blood Pressure 113/60 104/53 101/51 O2 Sat by Pulse 94 94 94 Oximetry 07/27/19 07/27/19 07/27/19 07:30 08:00 08:30 Temperature Pulse Rate 109 H 111 H 112 H Respiratory 26 H 26 H 20 Rate Blood Pressure 102/49 111/55 111/55 O2 Sat by Pulse 93 97 92 Oximetry 07/27/19 09:00 Temperature Pulse Rate 113 H Respiratory 26 H Rate Blood Pressure 115/59 O2 Sat by Pulse 92 Oximetry - General Appearance General appearance: well-developed, appears stated age, sedated on ventilator, intubated EENT: ATNC, mucous membranes moist Neck: no JVD Respiratory: Present: Clear to Ascultation Cardiology: regular, S1S2 Gastrointestinal: normoactive bowel sounds Integumentary: no rash, other (no pitting edema ) - Lab 07/27/19 05:40 07/27/19 05:40 Most recent lab results ABG pH 7.419 pH Units (7.350-7.450) 07/26/19 04:25 ABG pCO2 50.5 mm Hg 07/26/19 04:25 ABG pO2 101.9 mm Hg (80.0-90.0) H 07/26/19 04:25 ABG HCO3 32.0 mmol/L (20.0-26.0) H 07/26/19 04:25 ABG O2 Saturation 97.6 % (95.0-99.0) 07/26/19 04:25 Calcium 8.2 mg/dL (8.4-10.2) L 07/27/19 05:40 Phosphorus 2.50 mg/dL (2.5-4.5) 07/27/19 05:40 Magnesium 1.90 mg/dL (1.7-2.3) 07/27/19 05:40 76.6 mg/dL (0.1-20.0) H 07/16/19 14:30 39 mmol/L 07/16/19 14:30 Medications & Allergies - Medications Allergies/Adverse Reactions: Allergies latex Allergy (Verified 06/28/19 17:11) Anaphylaxis tramadol [From Ultram] Allergy (Verified 06/28/19 17:10) Unknown haloperidol [From Haldol] Adverse Reaction (Verified 07/17/19 05:55) Shortness of Breath agitation/combative ketorolac [From Toradol] Adverse Reaction (Verified 06/28/19 17:10) Seizure prochlorperazine [From Compazine] Adverse Reaction (Verified 06/28/19 17:11) Unknown Home Medications: Home Medications Medication Instructions Recorded Confirmed Last Taken Type No Known Home Medications [No 07/16/19 07/16/19 Unknown History Reported Home Medications] Active Medications: Generic Name Dose Route Start Last Admin Trade Name Freq PRN Reason Stop Dose Admin Acetaminophen 650 mg 07/16/19 05:36 07/26/19 21:00 Tylenol PO 650 mg Q4H PRN Administration Pain MILD(1-3)/Fever >100.5/WHALEN Albuterol 2.5 mg 07/16/19 22:48 07/16/19 23:01 Proventil IH 2.5 mg Q4HRT PRN Administration Shortness Of Breath Lipase/Protease/Amylase 1 each 07/18/19 14:34 Pancreazángel Thomas 10,500 Unit FEEDTUBE PRN PRN For Clogged Feeding Tube Bumetanide 1 mg 07/24/19 10:00 07/26/19 09:31 Bumex IV 1 mg DAILY KASIE Administration Dextrose 50 ml 07/17/19 03:17 07/17/19 05:30 D50w (25gm) Syringe IV 50 ml PRN PRN Administration Hypoglycemia Enoxaparin Sodium 40 mg 07/20/19 10:00 07/26/19 09:31 Lovenox SUB-Q 40 mg QDAY@1000 KASIE Administration Famotidine 20 mg 07/20/19 10:00 07/26/19 21:00 Pepcid PO 20 mg BID KASIE Administration Fentanyl 50 mcg 07/17/19 03:18 07/17/19 04:53 Sublimaze IV 50 mcg Q10MIN PRN Administration ANALGESIA Hydrochlorothiazide 25 mg 07/23/19 10:00 07/26/19 09:31 Hctz PO 25 mg QDAY [facility] Administration Hydromorphone HCl 0.25 mg 07/16/19 05:36 07/21/19 01:07 Dilaudid IV 0.25 mg Q3H PRN Administration Pain, Moderate (4-6) Hydrophilic Ointment 1 applic 07/17/19 03:18 Vaseline Lip Therapy TP Q2HR PRN Dry Lips Midazolam HCl 100 mg/ Sodium 100 mls @ 2 mls/hr 07/17/19 04:00 07/26/19 11:53 Chloride IV 2 mg/hr TITR KASIE 2 mls/hr Titration Protocol 2 MG/HR Fentanyl Citrate 2,000 mcg in 100 mls @ 3.4 mls/hr 07/17/19 04:00 07/27/19 02:43 Fentanyl Drip Premix IV 3 mcg/kg/hr TITR KASIE 10.2 mls/hr Administration Protocol 1 MCG/KG/HR Ceftriaxone Sodium 2 gm in 100 mls @ 200 mls/hr 07/20/19 13:00 07/26/19 11:05 Rocephin/Ns 2 Gm/100 Ml IV 200 mls/hr Q24HR KASIE Administration Protocol Midazolam HCl 2 mg 07/17/19 03:18 07/20/19 23:32 Versed IV 2 mg Q10MIN PRN Administration Sedation Multi-Ingred Cream/Lotion/Oil/Oint 1 applic 07/17/19 03:18 Artificial Tears Ophth Oint OU Q4HR PRN Dry Eye(s) Nicotine 14 mg 07/16/19 10:00 07/26/19 09:31 Habitrol TD 14 mg QDAY [facility] Administration Ondansetron HCl 4 mg 07/16/19 05:36 07/16/19 21:16 Zofran IV 4 mg Q8H PRN Administration Nausea And Vomiting Oxycodone/Acetaminophen 1 tab 07/16/19 05:36 07/16/19 12:33 Percocet 5/325 PO 1 tab Q6H PRN Administration Pain, Moderate (4-6) Simple Syrup 15 ml 07/18/19 14:34 Simple Syrup FEEDTUBE PRN PRN Hypoglycemia Simple Syrup 30 ml 07/18/19 14:34 Simple Syrup FEEDTUBE PRN PRN Hypoglycemia Sodium Bicarbonate 325 mg 07/18/19 14:34 Sodium Bicarbonate FEEDTUBE PRN PRN For Clogged Feeding Tube Sodium Chloride 10 ml 07/16/19 10:00 07/26/19 21:01 Sodium Chloride Flush Syringe 10 Ml IV 10 ml BID KASIE Administration Sodium Chloride 10 ml 07/16/19 05:36 Sodium Chloride Flush Syringe 10 Ml IV PRN PRN LINE FLUSH
--- NOTE | 2019-07-27 10:48 | Progress Note ---
Assessment and Plan 44 y/o female with abdominal pain found to have right sided mass vs cysts with acute vs chronic vs acute chronic renal failure, UTI and possible cellulitis of lower ext 1. Respiratory-acute respiratory failure, secondary to volume overload from aggressive volume resuscitation for hypotension on initial arrival. Will continue PEEP at 12 and not wean until FIO2 is at about 40-45%. Wean FiO2 for sats >88. Diuresis has helped tremendously. Now switching to PO. Will Keep PEEP at 10 today and drop tomorrow to 8, maybe even 6 pending CXR. Repeat CXR tomorrow morning. 2. ID-patient with persistent fever, despite negative HIDA scan. Will check bilateral upper and lower ext dopplers. 3. GI-If dopplers are negative, then will consider CT abdomen pelvis with contrast (will discuss with ID first) 4. PSYCH-adding BID Seroquel to help wean some of the sedative medications. Per chart, patient is allergic to haldol. 5. PT consult with special instructions that even if the dopplers are positive, she can still be mobilized. 6. Overall prognosis is guarded. Will continue to follow CCT 31 minutes. Subjective Date of service: 07/27/19 Principal diagnosis: Acute respiratory failure Interval history: No acute events. Currently on Fentanyl and Versed 3 and 2 respectively. Will awaken on this. Down to 25% FiO2 and PEEP is at 10. No CXR done this am. No family at bedside. Although patient awakens, im not able to get her to follow commands. Reviewed Renal Note Objective Vital Signs - 12hr 07/26/19 07/26/19 07/27/19 23:00 23:30 00:00 Temperature 99.9 F H Pulse Rate 73 73 74 Respiratory 27 H 26 H 26 H Rate Blood Pressure 89/55 90/54 98/58 O2 Sat by Pulse 100 100 100 Oximetry 07/27/19 07/27/19 07/27/19 00:30 01:00 01:30 Temperature Pulse Rate 92 H 77 79 Respiratory 26 H 26 H 26 H Rate Blood Pressure 107/64 105/60 109/63 O2 Sat by Pulse 96 100 100 Oximetry 07/27/19 07/27/19 07/27/19 02:00 02:30 03:00 Temperature Pulse Rate 86 92 H 97 H Respiratory 26 H 26 H 26 H Rate Blood Pressure 110/63 107/64 109/62 O2 Sat by Pulse 100 97 93 Oximetry 07/27/19 07/27/19 07/27/19 03:30 04:00 04:30 Temperature 101.3 F H Pulse Rate 99 H 111 H 105 H Respiratory 26 H 26 H 26 H Rate Blood Pressure 117/66 114/69 106/66 O2 Sat by Pulse 93 92 95 Oximetry 07/27/19 07/27/19 07/27/19 05:00 05:30 06:00 Temperature Pulse Rate 99 H 108 H 113 H Respiratory 26 H 20 20 Rate Blood Pressure 103/64 114/69 113/60 O2 Sat by Pulse 96 92 94 Oximetry 07/27/19 07/27/19 07/27/19 06:30 07:00 07:30 Temperature Pulse Rate 113 H 110 H 109 H Respiratory 26 H 26 H 26 H Rate Blood Pressure 104/53 101/51 102/49 O2 Sat by Pulse 94 94 93 Oximetry 07/27/19 07/27/19 07/27/19 08:00 08:30 09:00 Temperature 101.7 F H Pulse Rate 111 H 112 H 113 H Respiratory 26 H 20 26 H Rate Blood Pressure 111/55 111/55 115/59 O2 Sat by Pulse 97 92 92 Oximetry Constitutional: other (sedated, critically ill on ventilator. Opens eyes to tactile stimule) Eyes: non-icteric ENT: other (orally intubated and sedated) Neck: supple Effort: normal Ascultation: Bilateral: rales, other (coarse equal BS bilaterally) Percussion: Bilateral: not dull Cardiovascular: regular rate and rhythm (sinus tach) Gastrointestinal: normoactive bowel sounds, soft, non-tender, non-distended Integumentary: normal Extremities: no cyanosis, no edema, pink and warm Neurologic: non-focal exam, other (sedated opens eyes to tactile stimuli) Psychiatric: other (unable to obtain) CBC and BMP: 07/27/19 05:40 07/27/19 05:40 ABG, PT/INR, D-dimer: ABG POC ABG pH 7.460 (7.35-7.45) H 07/27/19 06:29 ABG pH 7.419 pH Units (7.350-7.450) 07/26/19 04:25 POC ABG pCO2 42.4 (35-45) 07/27/19 06:29 ABG pCO2 50.5 mm Hg 07/26/19 04:25 POC ABG pO2 60 (80-105) L 07/27/19 06:29 ABG pO2 101.9 mm Hg (80.0-90.0) H 07/26/19 04:25 POC ABG HCO3 30.1 (22-26 mml/L) 07/27/19 06:29 POC ABG Total CO2 31 (23-27mmol/L) 07/27/19 06:29 POC ABG O2 Sat 92 07/27/19 06:29 ABG O2 Saturation 97.6 % (95.0-99.0) 07/26/19 04:25 PT/INR, D-dimer PT 16.3 Sec. (12.2-14.9) H 07/16/19 05:47 INR 1.35 (0.87-1.13) H 07/16/19 05:47 Abnormal lab findings: Abnormal Labs 07/16/19 07/16/19 07/16/19 02:01 02:01 02:01 WBC 11.7 H RBC Hgb Hct RDW Plt Count 101 L [place] % (Auto) Mer[place] # Seg Neutrophils % Seg Neuts % (Manual) 92.0 H Lymphocytes % (Manual) 5.0 L Monocytes % (Manual) Eosinophils % (Manual) Seg Neutrophils # Seg Neutrophils # Man 10.8 H Lymphocytes # (Manual) 0.6 L Monocytes # (Manual) Eosinophils # (Manual) PT 15.2 H INR 1.23 H POC ABG pH ABG pH POC ABG pCO2 POC ABG pO2 ABG pO2 ABG HCO3 ABG O2 Saturation ABG Base Excess ABG Hemoglobin Oxyhemoglobin Sodium Potassium Chloride Carbon Dioxide 18 L BUN 46 H Creatinine 2.2 H Glucose 116 H POC Glucose Lactic Acid Calcium Phosphorus Magnesium Total Bilirubin Direct Bilirubin AST 63 H ALT 125 H Alkaline Phosphatase Total Protein 6.2 L Albumin 2.8 L Lipase Urine WBC (Auto) U Epithel Cells (Auto) Urine Creatinine Hepatitis C Antibody 07/16/19 07/16/19 07/16/19 02:16 02:43 04:07 WBC RBC Hgb Hct RDW Plt Count [place] % (Auto) [place] # Seg Neutrophils % Seg Neuts % (Manual) Lymphocytes % (Manual) Monocytes % (Manual) Eosinophils % (Manual) Seg Neutrophils # Seg Neutrophils # Man Lymphocytes # (Manual) Monocytes # (Manual) Eosinophils # (Manual) PT INR POC ABG pH ABG pH POC ABG pCO2 POC ABG pO2 ABG pO2 ABG HCO3 ABG O2 Saturation ABG Base Excess ABG Hemoglobin Oxyhemoglobin Sodium Potassium Chloride Carbon Dioxide BUN Creatinine Glucose POC Glucose Lactic Acid 2.10 H* 2.30 H* Calcium Phosphorus Magnesium Total Bilirubin Direct Bilirubin AST ALT Alkaline Phosphatase Total Protein Albumin Lipase 6 L Urine WBC (Auto) U Epithel Cells (Auto) Urine Creatinine Hepatitis C Antibody 07/16/19 07/16/19 07/16/19 05:47 05:59 14:30 WBC RBC Hgb Hct RDW Plt Count [place] % (Auto) [place] # Seg Neutrophils % Seg Neuts % (Manual) Lymphocytes % (Manual) Monocytes % (Manual) Eosinophils % (Manual) Seg Neutrophils # Seg Neutrophils # Man Lymphocytes # (Manual) Monocytes # (Manual) Eosinophils # (Manual) PT 16.3 H INR 1.35 H POC ABG pH ABG pH POC ABG pCO2 POC ABG pO2 ABG pO2 ABG HCO3 ABG O2 Saturation ABG Base Excess ABG Hemoglobin Oxyhemoglobin Sodium Potassium Chloride Carbon Dioxide BUN Creatinine Glucose POC Glucose Lactic Acid Calcium Phosphorus Magnesium Total Bilirubin Direct Bilirubin AST ALT Alkaline Phosphatase Total Protein Albumin Lipase Urine WBC (Auto) > 182.0 H U Epithel Cells (Auto) 21.0 H Urine Creatinine 76.6 H Hepatitis C Antibody 07/16/19 07/17/19 07/17/19 23:27 00:03 00:03 WBC RBC Hgb Hct RDW Plt Count [place] % (Auto) [place] # Seg Neutrophils % Seg Neuts % (Manual) Lymphocytes % (Manual) Monocytes % (Manual) Eosinophils % (Manual) Seg Neutrophils # Seg Neutrophils # Man Lymphocytes # (Manual) Monocytes # (Manual) Eosinophils # (Manual) PT INR POC ABG pH 7.093 L ABG pH POC ABG pCO2 32.8 L POC ABG pO2 66 L ABG pO2 ABG HCO3 ABG O2 Saturation ABG Base Excess ABG Hemoglobin Oxyhemoglobin Sodium 148 H D Potassium Chloride 120.5 H Carbon Dioxide 14 L BUN 35 H Creatinine 1.5 H Glucose 42 L POC Glucose Lactic Acid 2.90 H* Calcium 5.7 L* D Phosphorus Magnesium Total Bilirubin Direct Bilirubin AST ALT Alkaline Phosphatase Total Protein Albumin Lipase Urine WBC (Auto) U Epithel Cells (Auto) Urine Creatinine Hepatitis C Antibody 07/17/19 07/17/19 07/17/19 03:01 03:29 03:40 WBC 13.2 H RBC Hgb Hct RDW Plt Count 116 L [place] % (Auto) [place] # Seg Neutrophils % Seg Neuts % (Manual) Lymphocytes % (Manual) 9.0 L Monocytes % (Manual) Eosinophils % (Manual) 24.0 H Seg Neutrophils # Seg Neutrophils # Man 8.6 H Lymphocytes # (Manual) Monocytes # (Manual) Eosinophils # (Manual) 3.2 H PT INR POC ABG pH 6.981 L ABG pH POC ABG pCO2 55.6 H POC ABG pO2 ABG pO2 ABG HCO3 ABG O2 Saturation ABG Base Excess ABG Hemoglobin Oxyhemoglobin Sodium Potassium Chloride Carbon Dioxide BUN Creatinine Glucose POC Glucose 64 L Lactic Acid Calcium Phosphorus Magnesium Total Bilirubin Direct Bilirubin AST ALT Alkaline Phosphatase Total Protein Albumin Lipase Urine WBC (Auto) U Epithel Cells (Auto) Urine Creatinine Hepatitis C Antibody 07/17/19 07/17/19 07/17/19 03:40 03:40 04:08 WBC RBC Hgb Hct RDW Plt Count [place] % (Auto) [place] # Seg Neutrophils % Seg Neuts % (Manual) Lymphocytes % (Manual) Monocytes % (Manual) Eosinophils % (Manual) Seg Neutrophils # Seg Neutrophils # Man Lymphocytes # (Manual) Monocytes # (Manual) Eosinophils # (Manual) PT INR POC ABG pH 7.056 L ABG pH POC ABG pCO2 POC ABG pO2 63 L ABG pO2 ABG HCO3 ABG O2 Saturation ABG Base Excess ABG Hemoglobin Oxyhemoglobin Sodium 147 H Potassium Chloride 120.2 H Carbon Dioxide 14 L BUN 36 H Creatinine 1.6 H Glucose POC Glucose Lactic Acid 3.20 H* Calcium 6.0 L Phosphorus Magnesium Total Bilirubin Direct Bilirubin AST ALT Alkaline Phosphatase Total Protein Albumin Lipase Urine WBC (Auto) U Epithel Cells (Auto) Urine Creatinine Hepatitis C Antibody 07/17/19 07/17/19 07/17/19 05:33 05:45 06:51 WBC RBC Hgb Hct RDW Plt Count [place] % (Auto) [place] # Seg Neutrophils % Seg Neuts % (Manual) Lymphocytes % (Manual) Monocytes % (Manual) Eosinophils % (Manual) Seg Neutrophils # Seg Neutrophils # Man Lymphocytes # (Manual) Monocytes # (Manual) Eosinophils # (Manual) PT INR POC ABG pH 7.061 L ABG pH POC ABG pCO2 49.0 H POC ABG pO2 ABG pO2 ABG HCO3 ABG O2 Saturation ABG Base Excess ABG Hemoglobin Oxyhemoglobin Sodium Potassium Chloride Carbon Dioxide BUN Creatinine Glucose POC Glucose 64 L 239 H Lactic Acid Calcium Phosphorus Magnesium Total Bilirubin Direct Bilirubin AST ALT Alkaline Phosphatase Total Protein Albumin Lipase Urine WBC (Auto) U Epithel Cells (Auto) Urine Creatinine Hepatitis C Antibody 07/17/19 07/17/19 07/17/19 10:57 12:56 18:11 WBC RBC Hgb Hct RDW Plt Count [place] % (Auto) [place] # Seg Neutrophils % Seg Neuts % (Manual) Lymphocytes % (Manual) Monocytes % (Manual) Eosinophils % (Manual) Seg Neutrophils # Seg Neutrophils # Man Lymphocytes # (Manual) Monocytes # (Manual) Eosinophils # (Manual) PT INR POC ABG pH ABG pH 7.192 L* POC ABG pCO2 POC ABG pO2 ABG pO2 67.5 L ABG HCO3 16.3 L ABG O2 Saturation 92.6 L ABG Base Excess -11.4 L ABG Hemoglobin Oxyhemoglobin 91.1 L Sodium Potassium Chloride Carbon Dioxide BUN Creatinine Glucose POC Glucose 107 H 122 H Lactic Acid Calcium Phosphorus Magnesium Total Bilirubin Direct Bilirubin AST ALT Alkaline Phosphatase Total Protein Albumin Lipase Urine WBC (Auto) U Epithel Cells (Auto) Urine Creatinine Hepatitis C Antibody 07/17/19 07/17/19 07/18/19 23:34 Unknown 04:00 WBC RBC Hgb Hct RDW Plt Count 85 L [place] % (Auto) [place] # Seg Neutrophils % Seg Neuts % (Manual) 82.0 H Lymphocytes % (Manual) 2.0 L Monocytes % (Manual) 12.0 H Eosinophils % (Manual) Seg Neutrophils # Seg Neutrophils # Man Lymphocytes # (Manual) 0.2 L Monocytes # (Manual) 1.1 H Eosinophils # (Manual) PT INR POC ABG pH ABG pH 7.237 L POC ABG pCO2 POC ABG pO2 ABG pO2 142.4 H ABG HCO3 17.0 L ABG O2 Saturation ABG Base Excess -9.8 L ABG Hemoglobin Oxyhemoglobin Sodium Potassium Chloride Carbon Dioxide BUN Creatinine Glucose POC Glucose 136 H Lactic Acid Calcium Phosphorus Magnesium Total Bilirubin Direct Bilirubin AST ALT Alkaline Phosphatase Total Protein Albumin Lipase Urine WBC (Auto) U Epithel Cells (Auto) Urine Creatinine Hepatitis C Antibody 07/18/19 07/18/19 07/18/19 04:00 05:31 05:51 WBC RBC Hgb Hct RDW Plt Count [place] % (Auto) [place] # Seg Neutrophils % Seg Neuts % (Manual) Lymphocytes % (Manual) Monocytes % (Manual) Eosinophils % (Manual) Seg Neutrophils # Seg Neutrophils # Man Lymphocytes # (Manual) Monocytes # (Manual) Eosinophils # (Manual) PT INR POC ABG pH 7.239 L ABG pH POC ABG pCO2 56.9 H POC ABG pO2 ABG pO2 ABG HCO3 ABG O2 Saturation ABG Base Excess ABG Hemoglobin Oxyhemoglobin Sodium 151 H Potassium 3.2 L D Chloride 114.7 H Carbon Dioxide BUN 42 H Creatinine 2.1 H Glucose 130 H POC Glucose 135 H Lactic Acid Calcium 6.0 L Phosphorus Magnesium Total Bilirubin 2.10 H Direct Bilirubin AST 59 H ALT 62 H Alkaline Phosphatase Total Protein 4.8 L D Albumin 2.0 L Lipase Urine WBC (Auto) U Epithel Cells (Auto) Urine Creatinine Hepatitis C Antibody 07/18/19 07/18/19 07/18/19 12:05 18:30 23:40 WBC RBC Hgb Hct RDW Plt Count [place] % (Auto) [place] # Seg Neutrophils % Seg Neuts % (Manual) Lymphocytes % (Manual) Monocytes % (Manual) Eosinophils % (Manual) Seg Neutrophils # Seg Neutrophils # Man Lymphocytes # (Manual) Monocytes # (Manual) Eosinophils # (Manual) PT INR POC ABG pH ABG pH POC ABG pCO2 POC ABG pO2 ABG pO2 ABG HCO3 ABG O2 Saturation ABG Base Excess ABG Hemoglobin Oxyhemoglobin Sodium Potassium Chloride Carbon Dioxide BUN Creatinine Glucose POC Glucose 126 H 131 H 163 H Lactic Acid Calcium Phosphorus Magnesium Total Bilirubin Direct Bilirubin AST ALT Alkaline Phosphatase Total Protein Albumin Lipase Urine WBC (Auto) U Epithel Cells (Auto) Urine Creatinine Hepatitis C Antibody 07/19/19 07/19/19 07/19/19 03:35 04:57 08:15 WBC 11.1 H RBC 3.64 L Hgb Hct RDW Plt Count 71 L [place] % (Auto) [place] # Seg Neutrophils % Seg Neuts % (Manual) Lymphocytes % (Manual) Monocytes % (Manual) Eosinophils % (Manual) Seg Neutrophils # Seg Neutrophils # Man Lymphocytes # (Manual) Monocytes # (Manual) Eosinophils # (Manual) PT INR POC ABG pH ABG pH 7.296 L POC ABG pCO2 POC ABG pO2 ABG pO2 78.7 L ABG HCO3 26.4 H ABG O2 Saturation ABG Base Excess ABG Hemoglobin 11.1 L Oxyhemoglobin 93.3 L Sodium Potassium Chloride Carbon Dioxide BUN Creatinine Glucose POC Glucose 170 H Lactic Acid Calcium Phosphorus Magnesium Total Bilirubin Direct Bilirubin AST ALT Alkaline Phosphatase Total Protein Albumin Lipase Urine WBC (Auto) U Epithel Cells (Auto) Urine Creatinine Hepatitis C Antibody 07/19/19 07/19/19 07/19/19 08:15 12:34 18:32 WBC RBC Hgb Hct RDW Plt Count [place] % (Auto) [place] # Seg Neutrophils % Seg Neuts % (Manual) Lymphocytes % (Manual) Monocytes % (Manual) Eosinophils % (Manual) Seg Neutrophils # Seg Neutrophils # Man Lymphocytes # (Manual) Monocytes # (Manual) Eosinophils # (Manual) PT INR POC ABG pH ABG pH POC ABG pCO2 POC ABG pO2 ABG pO2 ABG HCO3 ABG O2 Saturation ABG Base Excess ABG Hemoglobin Oxyhemoglobin Sodium 146 H Potassium 2.9 L* Chloride 107.9 H Carbon Dioxide BUN 35 H Creatinine 1.5 H Glucose 156 H POC Glucose 160 H 138 H Lactic Acid Calcium 6.6 L Phosphorus Magnesium Total Bilirubin Direct Bilirubin AST ALT Alkaline Phosphatase Total Protein Albumin Lipase Urine WBC (Auto) U Epithel Cells (Auto) Urine Creatinine Hepatitis C Antibody 07/19/19 07/19/19 07/20/19 23:41 Unknown 04:20 WBC RBC Hgb Hct RDW Plt Count [place] % (Auto) [place] # Seg Neutrophils % Seg Neuts % (Manual) Lymphocytes % (Manual) Monocytes % (Manual) Eosinophils % (Manual) Seg Neutrophils # Seg Neutrophils # Man Lymphocytes # (Manual) Monocytes # (Manual) Eosinophils # (Manual) PT INR POC ABG pH ABG pH 7.316 L POC ABG pCO2 POC ABG pO2 ABG pO2 ABG HCO3 27.9 H ABG O2 Saturation ABG Base Excess ABG Hemoglobin Oxyhemoglobin 94.0 L Sodium 149 H Potassium 3.2 L Chloride 112.3 H Carbon Dioxide BUN 34 H Creatinine Glucose 162 H POC Glucose 145 H Lactic Acid Calcium 7.0 L Phosphorus Magnesium 1.50 L Total Bilirubin Direct Bilirubin AST ALT Alkaline Phosphatase Total Protein Albumin Lipase Urine WBC (Auto) U Epithel Cells (Auto) Urine Creatinine Hepatitis C Antibody 07/20/19 07/20/19 07/20/19 05:25 07:50 07:50 WBC 12.6 H RBC 3.51 L Hgb Hct RDW Plt Count 56 L [place] % (Auto) [place] # Seg Neutrophils % Seg Neuts % (Manual) 89.0 H Lymphocytes % (Manual) 5.0 L Monocytes % (Manual) Eosinophils % (Manual) Seg Neutrophils # Seg Neutrophils # Man 11.2 H Lymphocytes # (Manual) 0.6 L Monocytes # (Manual) Eosinophils # (Manual) PT INR POC ABG pH ABG pH POC ABG pCO2 POC ABG pO2 ABG pO2 ABG HCO3 ABG O2 Saturation ABG Base Excess ABG Hemoglobin Oxyhemoglobin Sodium 151 H Potassium 3.4 L Chloride 114.7 H Carbon Dioxide 31 H BUN 30 H Creatinine Glucose 148 H POC Glucose 141 H Lactic Acid Calcium 7.3 L Phosphorus Magnesium Total Bilirubin Direct Bilirubin AST ALT Alkaline Phosphatase Total Protein Albumin Lipase Urine WBC (Auto) U Epithel Cells (Auto) Urine Creatinine Hepatitis C Antibody 07/20/19 07/20/19 07/20/19 15:47 17:25 23:57 WBC RBC Hgb Hct RDW Plt Count [place] % (Auto) [place] # Seg Neutrophils % Seg Neuts % (Manual) Lymphocytes % (Manual) Monocytes % (Manual) Eosinophils % (Manual) Seg Neutrophils # Seg Neutrophils # Man Lymphocytes # (Manual) Monocytes # (Manual) Eosinophils # (Manual) PT INR POC ABG pH ABG pH POC ABG pCO2 POC ABG pO2 ABG pO2 ABG HCO3 ABG O2 Saturation ABG Base Excess ABG Hemoglobin Oxyhemoglobin Sodium Potassium Chloride Carbon Dioxide BUN Creatinine Glucose POC Glucose 160 H 165 H 122 H Lactic Acid Calcium Phosphorus Magnesium Total Bilirubin Direct Bilirubin AST ALT Alkaline Phosphatase Total Protein Albumin Lipase Urine WBC (Auto) U Epithel Cells (Auto) Urine Creatinine Hepatitis C Antibody 07/21/19 07/21/19 07/21/19 05:00 05:00 05:00 WBC 15.8 H RBC Hgb Hct RDW Plt Count 56 L [place] % (Auto) [place] # Seg Neutrophils % Seg Neuts % (Manual) Lymphocytes % (Manual) Monocytes % (Manual) Eosinophils % (Manual) Seg Neutrophils # Seg Neutrophils # Man Lymphocytes # (Manual) Monocytes # (Manual) Eosinophils # (Manual) PT INR POC ABG pH ABG pH POC ABG pCO2 POC ABG pO2 ABG pO2 ABG HCO3 ABG O2 Saturation ABG Base Excess ABG Hemoglobin Oxyhemoglobin Sodium 147 H Potassium 3.5 L Chloride 111.4 H Carbon Dioxide BUN 21 H Creatinine Glucose 107 H POC Glucose Lactic Acid Calcium 7.6 L Phosphorus 1.60 L Magnesium Total Bilirubin 4.80 H Direct Bilirubin AST 48 H ALT Alkaline Phosphatase 131 H Total Protein 4.3 L Albumin 1.5 L Lipase Urine WBC (Auto) U Epithel Cells (Auto) Urine Creatinine Hepatitis C Antibody 07/21/19 07/21/19 07/21/19 05:34 12:12 18:22 WBC RBC Hgb Hct RDW Plt Count [place] % (Auto) [place] # Seg Neutrophils % Seg Neuts % (Manual) Lymphocytes % (Manual) Monocytes % (Manual) Eosinophils % (Manual) Seg Neutrophils # Seg Neutrophils # Man Lymphocytes # (Manual) Monocytes # (Manual) Eosinophils # (Manual) PT INR POC ABG pH ABG pH POC ABG pCO2 POC ABG pO2 ABG pO2 ABG HCO3 ABG O2 Saturation ABG Base Excess ABG Hemoglobin Oxyhemoglobin Sodium Potassium Chloride Carbon Dioxide BUN Creatinine Glucose POC Glucose 119 H 108 H 125 H Lactic Acid Calcium Phosphorus Magnesium Total Bilirubin Direct Bilirubin AST ALT Alkaline Phosphatase Total Protein Albumin Lipase Urine WBC (Auto) U Epithel Cells (Auto) Urine Creatinine Hepatitis C Antibody 07/21/19 07/21/19 07/22/19 23:27 Unknown 04:25 WBC RBC Hgb Hct RDW Plt Count [place] % (Auto) [place] # Seg Neutrophils % Seg Neuts % (Manual) Lymphocytes % (Manual) Monocytes % (Manual) Eosinophils % (Manual) Seg Neutrophils # Seg Neutrophils # Man Lymphocytes # (Manual) Monocytes # (Manual) Eosinophils # (Manual) PT INR POC ABG pH ABG pH POC ABG pCO2 POC ABG pO2 ABG pO2 61.9 L 68.7 L ABG HCO3 28.9 H 29.1 H ABG O2 Saturation 93.5 L 94.4 L ABG Base Excess 3.5 H ABG Hemoglobin 10.8 L 11.5 L Oxyhemoglobin 91.6 L 92.3 L Sodium Potassium Chloride Carbon Dioxide BUN Creatinine Glucose POC Glucose 126 H Lactic Acid Calcium Phosphorus Magnesium Total Bilirubin Direct Bilirubin AST ALT Alkaline Phosphatase Total Protein Albumin Lipase Urine WBC (Auto) U Epithel Cells (Auto) Urine Creatinine Hepatitis C Antibody 07/22/19 07/22/19 07/22/19 05:25 07:00 07:00 WBC 14.9 H RBC Hgb Hct RDW Plt Count 87 L [place] % (Auto) [place] # Seg Neutrophils % Seg Neuts % (Manual) Lymphocytes % (Manual) Monocytes % (Manual) Eosinophils % (Manual) Seg Neutrophils # Seg Neutrophils # Man Lymphocytes # (Manual) Monocytes # (Manual) Eosinophils # (Manual) PT INR POC ABG pH ABG pH POC ABG pCO2 POC ABG pO2 ABG pO2 ABG HCO3 ABG O2 Saturation ABG Base Excess ABG Hemoglobin Oxyhemoglobin Sodium 147 H Potassium 3.3 L Chloride 110.9 H Carbon Dioxide BUN Creatinine 0.6 L Glucose 107 H POC Glucose 107 H Lactic Acid Calcium 7.5 L Phosphorus Magnesium Total Bilirubin Direct Bilirubin AST ALT Alkaline Phosphatase Total Protein Albumin Lipase Urine WBC (Auto) U Epithel Cells (Auto) Urine Creatinine Hepatitis C Antibody 07/22/19 07/22/19 07/23/19 17:41 23:40 04:50 WBC RBC Hgb Hct RDW Plt Count [place] % (Auto) [place] # Seg Neutrophils % Seg Neuts % (Manual) Lymphocytes % (Manual) Monocytes % (Manual) Eosinophils % (Manual) Seg Neutrophils # Seg Neutrophils # Man Lymphocytes # (Manual) Monocytes # (Manual) Eosinophils # (Manual) PT INR POC ABG pH ABG pH POC ABG pCO2 POC ABG pO2 ABG pO2 ABG HCO3 ABG O2 Saturation ABG Base Excess ABG Hemoglobin Oxyhemoglobin Sodium Potassium Chloride Carbon Dioxide BUN Creatinine 0.6 L Glucose 102 H POC Glucose 132 H 123 H Lactic Acid Calcium 7.8 L Phosphorus Magnesium 1.50 L Total Bilirubin Direct Bilirubin AST ALT Alkaline Phosphatase Total Protein Albumin Lipase Urine WBC (Auto) U Epithel Cells (Auto) Urine Creatinine Hepatitis C Antibody 07/23/19 07/23/19 07/23/19 05:00 10:50 10:50 WBC 13.0 H RBC 3.41 L Hgb Hct RDW Plt Count 100 L [place] % (Auto) [place] # Seg Neutrophils % Seg Neuts % (Manual) Lymphocytes % (Manual) Monocytes % (Manual) Eosinophils % (Manual) Seg Neutrophils # Seg Neutrophils # Man Lymphocytes # (Manual) Monocytes # (Manual) Eosinophils # (Manual) PT INR POC ABG pH ABG pH POC ABG pCO2 POC ABG pO2 ABG pO2 100.4 H ABG HCO3 28.7 H ABG O2 Saturation ABG Base Excess ABG Hemoglobin 11.0 L Oxyhemoglobin Sodium Potassium Chloride Carbon Dioxide BUN Creatinine Glucose POC Glucose Lactic Acid Calcium Phosphorus Magnesium Total Bilirubin 2.60 H Direct Bilirubin 2.2 H AST 41 H ALT Alkaline Phosphatase Total Protein 4.4 L Albumin 1.4 L Lipase Urine WBC (Auto) U Epithel Cells (Auto) Urine Creatinine Hepatitis C Antibody 07/23/19 07/23/19 07/23/19 11:49 11:49 17:42 WBC RBC Hgb Hct RDW Plt Count [place] % (Auto) [place] # Seg Neutrophils % Seg Neuts % (Manual) Lymphocytes % (Manual) Monocytes % (Manual) Eosinophils % (Manual) Seg Neutrophils # Seg Neutrophils # Man Lymphocytes # (Manual) Monocytes # (Manual) Eosinophils # (Manual) PT INR POC ABG pH ABG pH POC ABG pCO2 POC ABG pO2 ABG pO2 ABG HCO3 ABG O2 Saturation ABG Base Excess ABG Hemoglobin Oxyhemoglobin Sodium Potassium Chloride Carbon Dioxide BUN Creatinine Glucose POC Glucose 109 H 124 H Lactic Acid Calcium Phosphorus Magnesium Total Bilirubin Direct Bilirubin AST ALT Alkaline Phosphatase Total Protein Albumin Lipase Urine WBC (Auto) U Epithel Cells (Auto) Urine Creatinine Hepatitis C Antibody Reactive A 07/23/19 07/24/19 07/24/19 23:37 03:34 03:34 WBC 13.7 H RBC 3.39 L Hgb Hct 29.9 L RDW Plt Count 116 L [place] % (Auto) [place] # Seg Neutrophils % 77.7 H Seg Neuts % (Manual) Lymphocytes % (Manual) Monocytes % (Manual) Eosinophils % (Manual) Seg Neutrophils # 10.6 H Seg Neutrophils # Man Lymphocytes # (Manual) Monocytes # (Manual) Eosinophils # (Manual) PT INR POC ABG pH ABG pH POC ABG pCO2 POC ABG pO2 ABG pO2 ABG HCO3 ABG O2 Saturation ABG Base Excess ABG Hemoglobin Oxyhemoglobin Sodium Potassium 3.3 L Chloride Carbon Dioxide 35 H BUN Creatinine 0.6 L Glucose 139 H POC Glucose 145 H Lactic Acid Calcium 7.7 L Phosphorus Magnesium Total Bilirubin Direct Bilirubin AST ALT Alkaline Phosphatase Total Protein Albumin Lipase Urine WBC (Auto) U Epithel Cells (Auto) Urine Creatinine Hepatitis C Antibody 07/24/19 07/24/19 07/24/19 04:50 05:11 11:29 WBC RBC Hgb Hct RDW Plt Count [place] % (Auto) [place] # Seg Neutrophils % Seg Neuts % (Manual) Lymphocytes % (Manual) Monocytes % (Manual) Eosinophils % (Manual) Seg Neutrophils # Seg Neutrophils # Man Lymphocytes # (Manual) Monocytes # (Manual) Eosinophils # (Manual) PT INR POC ABG pH ABG pH 7.457 H POC ABG pCO2 POC ABG pO2 ABG pO2 138.3 H ABG HCO3 32.1 H ABG O2 Saturation ABG Base Excess 7.4 H ABG Hemoglobin 8.2 L Oxyhemoglobin Sodium Potassium Chloride Carbon Dioxide BUN Creatinine Glucose POC Glucose 128 H 123 H Lactic Acid Calcium Phosphorus Magnesium Total Bilirubin Direct Bilirubin AST ALT Alkaline Phosphatase Total Protein Albumin Lipase Urine WBC (Auto) U Epithel Cells (Auto) Urine Creatinine Hepatitis C Antibody 07/24/19 07/24/19 07/25/19 17:50 23:39 04:09 WBC 12.5 H RBC 3.13 L Hgb 9.3 L Hct 27.7 L RDW Plt Count [place] % (Auto) [place] # Seg Neutrophils % 77.2 H Seg Neuts % (Manual) Lymphocytes % (Manual) Monocytes % (Manual) Eosinophils % (Manual) Seg Neutrophils # 9.6 H Seg Neutrophils # Man Lymphocytes # (Manual) Monocytes # (Manual) Eosinophils # (Manual) PT INR POC ABG pH ABG pH POC ABG pCO2 POC ABG pO2 ABG pO2 ABG HCO3 ABG O2 Saturation ABG Base Excess ABG Hemoglobin Oxyhemoglobin Sodium Potassium Chloride Carbon Dioxide BUN Creatinine Glucose POC Glucose 125 H 144 H Lactic Acid Calcium Phosphorus Magnesium Total Bilirubin Direct Bilirubin AST ALT Alkaline Phosphatase Total Protein Albumin Lipase Urine WBC (Auto) U Epithel Cells (Auto) Urine Creatinine Hepatitis C Antibody 07/25/19 07/25/19 07/25/19 04:09 05:12 05:29 WBC RBC Hgb Hct RDW Plt Count [place] % (Auto) [place] # Seg Neutrophils % Seg Neuts % (Manual) Lymphocytes % (Manual) Monocytes % (Manual) Eosinophils % (Manual) Seg Neutrophils # Seg Neutrophils # Man Lymphocytes # (Manual) Monocytes # (Manual) Eosinophils # (Manual) PT INR POC ABG pH ABG pH POC ABG pCO2 POC ABG pO2 ABG pO2 65.7 L ABG HCO3 33.6 H ABG O2 Saturation 92.8 L ABG Base Excess 7.9 H ABG Hemoglobin 11.9 L Oxyhemoglobin 90.7 L Sodium Potassium 3.1 L Chloride Carbon Dioxide 34 H BUN Creatinine 0.6 L Glucose 159 H POC Glucose 168 H Lactic Acid Calcium 7.5 L Phosphorus Magnesium Total Bilirubin 1.30 H Direct Bilirubin AST ALT Alkaline Phosphatase Total Protein 4.8 L Albumin 1.4 L Lipase Urine WBC (Auto) U Epithel Cells (Auto) Urine Creatinine Hepatitis C Antibody 07/25/19 07/25/19 07/26/19 11:34 23:30 04:25 WBC RBC Hgb Hct RDW Plt Count [place] % (Auto) [place] # Seg Neutrophils % Seg Neuts % (Manual) Lymphocytes % (Manual) Monocytes % (Manual) Eosinophils % (Manual) Seg Neutrophils # Seg Neutrophils # Man Lymphocytes # (Manual) Monocytes # (Manual) Eosinophils # (Manual) PT INR POC ABG pH ABG pH POC ABG pCO2 POC ABG pO2 ABG pO2 101.9 H ABG HCO3 32.0 H ABG O2 Saturation ABG Base Excess 6.5 H ABG Hemoglobin 9.9 L Oxyhemoglobin Sodium Potassium Chloride Carbon Dioxide BUN Creatinine Glucose POC Glucose 124 H 126 H Lactic Acid Calcium Phosphorus Magnesium Total Bilirubin Direct Bilirubin AST ALT Alkaline Phosphatase Total Protein Albumin Lipase Urine WBC (Auto) U Epithel Cells (Auto) Urine Creatinine Hepatitis C Antibody 07/26/19 07/26/19 07/26/19 05:00 05:00 05:38 WBC 12.3 H RBC 3.11 L Hgb 9.2 L Hct 28.2 L RDW 15.4 H Plt Count [place] % (Auto) 7.8 H [place] # 1.0 H Seg Neutrophils % 73.0 H Seg Neuts % (Manual) Lymphocytes % (Manual) Monocytes % (Manual) Eosinophils % (Manual) Seg Neutrophils # 8.9 H Seg Neutrophils # Man Lymphocytes # (Manual) Monocytes # (Manual) Eosinophils # (Manual) PT INR POC ABG pH ABG pH POC ABG pCO2 POC ABG pO2 ABG pO2 ABG HCO3 ABG O2 Saturation ABG Base Excess ABG Hemoglobin Oxyhemoglobin Sodium Potassium Chloride Carbon Dioxide 32 H BUN Creatinine Glucose 135 H POC Glucose 145 H Lactic Acid Calcium 7.9 L Phosphorus Magnesium Total Bilirubin Direct Bilirubin AST ALT Alkaline Phosphatase Total Protein Albumin Lipase Urine WBC (Auto) U Epithel Cells (Auto) Urine Creatinine Hepatitis C Antibody 07/26/19 07/26/19 07/26/19 11:16 17:55 23:26 WBC RBC Hgb Hct RDW Plt Count [place] % (Auto) [place] # Seg Neutrophils % Seg Neuts % (Manual) Lymphocytes % (Manual) Monocytes % (Manual) Eosinophils % (Manual) Seg Neutrophils # Seg Neutrophils # Man Lymphocytes # (Manual) Monocytes # (Manual) Eosinophils # (Manual) PT INR POC ABG pH ABG pH POC ABG pCO2 POC ABG pO2 ABG pO2 ABG HCO3 ABG O2 Saturation ABG Base Excess ABG Hemoglobin Oxyhemoglobin Sodium Potassium Chloride Carbon Dioxide BUN Creatinine Glucose POC Glucose 140 H 123 H 128 H Lactic Acid Calcium Phosphorus Magnesium Total Bilirubin Direct Bilirubin AST ALT Alkaline Phosphatase Total Protein Albumin Lipase Urine WBC (Auto) U Epithel Cells (Auto) Urine Creatinine Hepatitis C Antibody 07/27/19 07/27/19 07/27/19 05:29 05:40 05:40 WBC 13.2 H RBC 3.26 L Hgb 9.6 L Hct 29.5 L RDW Plt Count [place] % (Auto) [place] # 0.9 H Seg Neutrophils % 73.6 H Seg Neuts % (Manual) Lymphocytes % (Manual) Monocytes % (Manual) Eosinophils % (Manual) Seg Neutrophils # 9.7 H Seg Neutrophils # Man Lymphocytes # (Manual) Monocytes # (Manual) Eosinophils # (Manual) PT INR POC ABG pH ABG pH POC ABG pCO2 POC ABG pO2 ABG pO2 ABG HCO3 ABG O2 Saturation ABG Base Excess ABG Hemoglobin Oxyhemoglobin Sodium Potassium Chloride Carbon Dioxide BUN Creatinine 0.6 L Glucose 136 H POC Glucose 143 H Lactic Acid Calcium 8.2 L Phosphorus Magnesium Total Bilirubin Direct Bilirubin AST ALT Alkaline Phosphatase Total Protein Albumin Lipase Urine WBC (Auto) U Epithel Cells (Auto) Urine Creatinine Hepatitis C Antibody 07/27/19 06:29 WBC RBC Hgb Hct RDW Plt Count [place] % (Auto) [place] # Seg Neutrophils % Seg Neuts % (Manual) Lymphocytes % (Manual) Monocytes % (Manual) Eosinophils % (Manual) Seg Neutrophils # Seg Neutrophils # Man Lymphocytes # (Manual) Monocytes # (Manual) Eosinophils # (Manual) PT INR POC ABG pH 7.460 H ABG pH POC ABG pCO2 POC ABG pO2 60 L ABG pO2 ABG HCO3 ABG O2 Saturation ABG Base Excess ABG Hemoglobin Oxyhemoglobin Sodium Potassium Chloride Carbon Dioxide BUN Creatinine Glucose POC Glucose Lactic Acid Calcium Phosphorus Magnesium Total Bilirubin Direct Bilirubin AST ALT Alkaline Phosphatase Total Protein Albumin Lipase Urine WBC (Auto) U Epithel Cells (Auto) Urine Creatinine Hepatitis C Antibody
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
[2019-07-27] MEDS: BUMEX IV SCH (12:01)
[2019-07-27] MEDS: ROCEPHIN/NS 2 GM/100 ML 2 GM/100 ML BAG IV SCH (12:27)
[2019-07-27] MEDS: LOVENOX SUB-Q SCH (12:27)
[2019-07-27] MEDS: TYLENOL PO PRN ×2 (12:27→20:10)
[2019-07-27] MEDS: HCTZ PO SCH (12:28)
[2019-07-27] MEDS: HABITROL TD SCH (12:28)
[2019-07-27] MEDS: BUMEX PO SCH (12:28)
[2019-07-27] MEDS: PEPCID PO SCH ×2 (12:28→22:25)
[2019-07-27] MEDS: MIDAZOLAM 100 MG in NACL 0.9% 80 ML IV SCH (12:29)
[2019-07-27] MEDS: SODIUM CHLORIDE FLUSH SYRINGE 10 ML IV SCH ×2 (12:29→22:25)
--- NOTE | 2019-07-27 13:19 | Vascular Lab Report ---
DUPLEX DOPPLER LOWER EXTREMITY VEINS, BILATERAL INDICATION: Swelling. TECHNIQUE: Duplex doppler imaging was performed through the veins of both lower extremities using venous rohith tristan and other maneuvers. COMPARISON: None available. FINDINGS: Right Common Femoral vein: Negative. Right Superficial Femoral vein: Negative. Right Popliteal vein: Negative. Right Calf veins: Negative. Left Common Femoral vein: Negative. Left Superficial Femoral vein: Negative. Left Popliteal vein: Negative. Left Calf veins: Negative. Additional findings: None. IMPRESSION: 1. No sonographic evidence for DVT in either lower extremity. Signer Name: Shamir Dacosta MD Signed: 07/27/2019 1:14 PM Workstation Name: [id number]
--- NOTE | 2019-07-27 13:21 | Vascular Lab Report ---
DUPLEX DOPPLER UPPER EXTREMITY VENOUS, BILATERAL INDICATION / CLINICAL INFORMATION: Swelling. TECHNIQUE: Duplex doppler imaging was performed through the veins of the right and left upper extremity using ve nous compression and other maneuvers. COMPARISON: None available. FINDINGS: Right Internal Jugular vein: Negative. Right Subclavian vein: Negative. Right Axillary vein: Negative. Right Brachial vein: Negative. Right Basilic vein (superficial): Negative. Left Internal Jugular vein: Negative. Left Subclavian vein: Negative. Left Axillary vein: Negative. Left Brachial vein: Negative. Left Basilic vein (superficial): Negative. Additional findings: Small segment of the right cephalic vein contains thrombus in the proximal forea rm. IMPRESSION: 1. No sonographic evidence for DVT in the right or left upper extremity. 2. Focal superficial venous thrombosis within a short segment of the right cephalic vein in the proxi mal forearm. Signer Name: Shamir Dacosta MD Signed: 07/27/2019 1:17 PM Workstation Name: [id number]
--- NOTE | 2019-07-27 16:44 | Progress Note ---
Assessment and Plan /Acute hypoxic respiratory failure; requiring intubation >96h - ARDS Likely from severe sepsis Continue ventilatory support , nebulizers, supportive care Pulmonary critical following, wean as tolerated Requiring high FiO2 to maintain oxygen saturation - trended down to 25% today wean off vent as tolerated / Severe sepsis with Septic shock and organ failure/right foot infection/pyelonephritis/bacreremia Secondary to pyelonephritis and Escherichia coli bacteremia. weaned off pressor, Continue abx per ID, /Febrile illness, cont to spike fever, on abx, order DVT study /E.coli bacteremia, likely source from pyelonephritis Continue to treat with empiric antibiotic per ID recommendation /Transaminitis - Could be from severe sepsis versus and underlying chronic hepatitis C - trending down LFTs, s/p HIDA scan showed normal study - hepatitis panel showed positive hepatitis C antibody - need further outpatient follow-up / Acute pyelonephritis To be improving. Decreased leukocytosis. She remains critically ill. / Cellulites of right foot, on abx /Acute renal failure due to ATN from severe sepsis Creatinine was 2.2 on admission monitor renal function, Cr now stable / Malnutrition Nutrition corrected by NG tube feedings. Nutrition following /Electrolyte imbalance Hyponatremia -manage with free water with tube feeding Hypokalemia - continue to replete as needed and continue to monitor BMP Hypomagnesemia - replete as needed, continue to follow The high probability of a clinically significant, sudden or life threatening deterioration of the [pulmonary, renal, infectious, metabolic] system(s) required my full and direct attention, intervention and personal management. The aggregate critical care time was [35] minutes. This time is in addition to time spent performing reported procedures but includes the following: [X] Data Review and interpretation [X] Patient assessment and monitoring of vital signs [x] Documentation [x] Medication orders and management Brief history The patient is a 44-year-old female with bipolar disorder presented to the emergency room with right foot pain, abdominal pain and fevers. She previously presented to the emergency room on 06/28/2019 with right foot with redness and pain following a possible spider bite. She was given a prescription for oral Augmentin and was discharged home. Patient stated that she was compliant with Augmentin and also was soaking her right foot in Epsom salts. About 2-3 days pr ior to admission, she started developing fevers, nausea as well as worsening abdominal pain. She has presented to the emergency room and was hospitalized. She was noted to be septic,Started on empiric antibiotics. She decompensated on the floor and required intubation and transferred to ICU for further management on 07/17/2019. Also required pressors for septic shock, blood culture growing Escherichia coli bacteremia. Patient is now on Lopressor, still intubated with 40% FiO2 and high PEEP. Plan to continue wean off from vent as tolerated and complete her antibiotic regimen for bacteremia. Radiological data: CT abdomen/pelvis: 1. Mild nonspecific left-sided perinephric stranding in this patient with punctate bilateral nonobstructive nephrolithiasis. No asymmetric hydronephrosis or ureteral stone disease. 2. Complex cyst versus mass in the left ovary. Gabriel mmend nonemergent follow-up pelvic ultrasound. 3. Mild periportal edema could be related to aggressive hydration therapy. 4. Other incidental findings as outlined above on this limited noncontrast exam with mild motion artifact. Of note, there is a 5 mm nodule in the right middle lobe. Please see below recommendations. Abdomen ultrasound: 1. No gallstones, but the gallbladder wall is thickened and edematous. 2. Small bilateral pleural effusions. Hospitalist Physical General appearance: Present: no acute distress, well-nourished, other (intubated on ventilatory support and sedated) - EENT Eyes: Present: PERRL, EOM intact - Neck Neck: Present: supple, normal ROM - Respiratory Respiratory effort: labored Respiratory: bilateral: diminished, rhonchi, negative: rales, wheezing - Cardiovascular Rhythm: regular Heart Sounds: Present: S1 & S2 - Extremities Extremities: no ischemia, abnormal (cellulites lower extremity) Extremity abnormal: edema - Abdominal General gastrointestinal: soft, non-tender, non-distended, normal bowel sounds - Integumentary Integumentary: Present: clear, warm - Psychiatric Psychiatric: other (intubated on vent) - Neurologic Neurologic: other (intubated on vent) Subjective Date of service: 07/27/19 Principal diagnosis: Acute respiratory failure Interval history: Patient seen and examined Remain intubated with high FiO2 - trended down to 25% FiO2 off pressor support, Tolerating tube feeding Updated family/significant other at bedside Objective - Constitutional Vitals: Vital Signs - 12hr 07/27/19 07/27/19 07/27/19 05:00 05:30 06:00 Temperature Pulse Rate 99 H 108 H 113 H Pulse Rate [ From Monitor] Respiratory 26 H 20 20 Rate Blood Pressure 103/64 114/69 113/60 O2 Sat by Pulse 96 92 94 Oximetry 07/27/19 07/27/19 07/27/19 06:30 07:00 07:30 Temperature Pulse Rate 113 H 110 H 109 H Pulse Rate [ From Monitor] Respiratory 26 H 26 H 26 H Rate Blood Pressure 104/53 101/51 102/49 O2 Sat by Pulse 94 94 93 Oximetry 07/27/19 07/27/19 07/27/19 08:00 08:30 09:00 Temperature 101.7 F H Pulse Rate 103 H 112 H 113 H Pulse Rate [ 103 H From Monitor] Respiratory 26 H 20 26 H Rate Blood Pressure 111/55 111/55 115/59 O2 Sat by Pulse 94 92 92 Oximetry 07/27/19 07/27/19 07/27/19 09:30 10:00 10:30 Temperature Pulse Rate 108 H 100 H 99 H Pulse Rate [ From Monitor] Respiratory 26 H 26 H 27 H Rate Blood Pressure 102/51 100/49 100/49 O2 Sat by Pulse 92 93 94 Oximetry 07/27/19 07/27/19 07/27/19 11:00 11:30 12:00 Temperature 99.2 F Pulse Rate 96 H 98 H 94 H Pulse Rate [ 103 H From Monitor] Respiratory 26 H 27 H 26 H Rate Blood Pressure 99/50 104/53 103/56 O2 Sat by Pulse 94 94 95 Oximetry 07/27/19 07/27/19 07/27/19 12:28 12:30 13:00 Temperature Pulse Rate 98 H 103 H 97 H Pulse Rate [ From Monitor] Respiratory 23 17 Rate Blood Pressure 99/58 99/58 96/49 O2 Sat by Pulse 95 94 94 Oximetry 07/27/19 07/27/19 07/27/19 13:30 14:00 14:30 Temperature Pulse Rate 88 81 75 Pulse Rate [ From Monitor] Respiratory 26 H 26 H 26 H Rate Blood Pressure 91/49 90/48 91/52 O2 Sat by Pulse 94 95 96 Oximetry 07/27/19 07/27/19 07/27/19 15:00 15:30 16:00 Temperature Pulse Rate 73 91 H 80 Pulse Rate [ 85 From Monitor] Respiratory 26 H 26 H 26 H Rate Blood Pressure 93/57 110/73 97/60 O2 Sat by Pulse 98 97 98 Oximetry - Labs CBC & Chem 7: 07/27/19 05:40 07/27/19 05:40 Labs: Abnormal lab results 07/26/19 07/26/19 07/27/19 Range/Units 17:55 23:26 05:29 WBC (4.5-11.0) K/mm3 RBC (3.65-5.03) M/mm3 Hgb (10.1-14.3) gm/dl Hct (30.3-42.9) % [place] # (0.0-0.8) K/mm3 Seg Neutrophils % (40.0-70.0) % Seg Neutrophils # (1.8-7.7) K/mm3 POC ABG pH (7.35-7.45) POC ABG pO2 (80-105) Creatinine (0.7-1.2) mg/dL Glucose (65-100) mg/dL POC Glucose 123 H 128 H 143 H (70-105) Calcium (8.4-10.2) mg/dL 07/27/19 07/27/19 07/27/19 Range/Units 05:40 05:40 06:29 WBC 13.2 H (4.5-11.0) K/mm3 RBC 3.26 L (3.65-5.03) M/mm3 Hgb 9.6 L (10.1-14.3) gm/dl Hct 29.5 L (30.3-42.9) % [place] # 0.9 H (0.0-0.8) K/mm3 Seg Neutrophils % 73.6 H (40.0-70.0) % Seg Neutrophils # 9.7 H (1.8-7.7) K/mm3 POC ABG pH 7.460 H (7.35-7.45) POC ABG pO2 60 L (80-105) Creatinine 0.6 L (0.7-1.2) mg/dL Glucose 136 H (65-100) mg/dL POC Glucose (70-105) Calcium 8.2 L (8.4-10.2) mg/dL 07/27/19 Range/Units 12:32 WBC (4.5-11.0) K/mm3 RBC (3.65-5.03) M/mm3 Hgb (10.1-14.3) gm/dl Hct (30.3-42.9) % [place] # (0.0-0.8) K/mm3 Seg Neutrophils % (40.0-70.0) % Seg Neutrophils # (1.8-7.7) K/mm3 POC ABG pH (7.35-7.45) POC ABG pO2 (80-105) Creatinine (0.7-1.2) mg/dL Glucose (65-100) mg/dL POC Glucose 139 H (70-105) Calcium (8.4-10.2) mg/dL
--- NOTE | 2019-07-27 17:12 | Progress Note ---
Assessment and Plan - Patient Problems (1) Cellulitis of right foot Current Visit: Yes Status: Resolved Plan to address problem: Pt in critical condition. This is not related to foot infection. Continue routine wound care. Foot erythema is essentially resolved. HIDA is neg. Elevated transaminases probably the result of shock liver abd/or Hep C. Will sign off. Please call with questions. time=10min Subjective Date of service: 07/27/19 Patient Reports: Positive: no new complaints Objective Vital Signs - 12hr 07/27/19 07/27/19 07/27/19 05:30 06:00 06:30 Temperature Pulse Rate 108 H 113 H 113 H Pulse Rate [ From Monitor] Respiratory 20 20 26 H Rate Blood Pressure 114/69 113/60 104/53 O2 Sat by Pulse 92 94 94 Oximetry 07/27/19 07/27/19 07/27/19 07:00 07:30 08:00 Temperature 101.7 F H Pulse Rate 110 H 109 H 103 H Pulse Rate [ 103 H From Monitor] Respiratory 26 H 26 H 26 H Rate Blood Pressure 101/51 102/49 111/55 O2 Sat by Pulse 94 93 94 Oximetry 07/27/19 07/27/19 07/27/19 08:30 09:00 09:30 Temperature Pulse Rate 112 H 113 H 108 H Pulse Rate [ From Monitor] Respiratory 20 26 H 26 H Rate Blood Pressure 111/55 115/59 102/51 O2 Sat by Pulse 92 92 92 Oximetry 07/27/19 07/27/19 07/27/19 10:00 10:30 11:00 Temperature Pulse Rate 100 H 99 H 96 H Pulse Rate [ From Monitor] Respiratory 26 H 27 H 26 H Rate Blood Pressure 100/49 100/49 99/50 O2 Sat by Pulse 93 94 94 Oximetry 07/27/19 07/27/19 07/27/19 11:30 12:00 12:28 Temperature 99.2 F Pulse Rate 98 H 94 H 98 H Pulse Rate [ 103 H From Monitor] Respiratory 27 H 26 H Rate Blood Pressure 104/53 103/56 99/58 O2 Sat by Pulse 94 95 95 Oximetry 07/27/19 07/27/19 07/27/19 12:30 13:00 13:30 Temperature Pulse Rate 103 H 97 H 88 Pulse Rate [ From Monitor] Respiratory 23 17 26 H Rate Blood Pressure 99/58 96/49 91/49 O2 Sat by Pulse 94 94 94 Oximetry 07/27/19 07/27/19 07/27/19 14:00 14:30 15:00 Temperature Pulse Rate 81 75 73 Pulse Rate [ From Monitor] Respiratory 26 H 26 H 26 H Rate Blood Pressure 90/48 91/52 93/57 O2 Sat by Pulse 95 96 98 Oximetry 07/27/19 07/27/19 07/27/19 15:30 15:53 16:00 Temperature Pulse Rate 91 H 90 80 Pulse Rate [ 85 From Monitor] Respiratory 26 H 26 H Rate Blood Pressure 110/73 105/65 97/60 O2 Sat by Pulse 97 97 98 Oximetry 07/27/19 07/27/19 16:30 17:00 Temperature Pulse Rate 85 88 Pulse Rate [ From Monitor] Respiratory 26 H 26 H Rate Blood Pressure 105/65 99/63 O2 Sat by Pulse 97 98 Oximetry - General physical appearance no distress, no pain - Respiratory normal expansion, normal respiratory effort - Integumentary other (erythema on right foot has essentially resolved. ) - Labs 07/27/19 05:40 07/27/19 05:40 Diabetes panel 07/27/19 Range/Units 05:40 Sodium 139 (137-145) mmol/L Potassium 4.3 (3.6-5.0) mmol/L Chloride 101.3 (98-107) mmol/L Carbon Dioxide 30 (22-30) mmol/L BUN 16 (7-17) mg/dL Creatinine 0.6 L (0.7-1.2) mg/dL Glucose 136 H (65-100) mg/dL Calcium 8.2 L (8.4-10.2) mg/dL Calcium panel 07/27/19 Range/Units 05:40 Calcium 8.2 L (8.4-10.2) mg/dL Phosphorus 2.50 (2.5-4.5) mg/dL Pituitary panel 07/27/19 Range/Units 05:40 Sodium 139 (137-145) mmol/L Potassium 4.3 (3.6-5.0) mmol/L Chloride 101.3 (98-107) mmol/L Carbon Dioxide 30 (22-30) mmol/L BUN 16 (7-17) mg/dL Creatinine 0.6 L (0.7-1.2) mg/dL Glucose 136 H (65-100) mg/dL Calcium 8.2 L (8.4-10.2) mg/dL Adrenal panel 07/27/19 Range/Units 05:40 Sodium 139 (137-145) mmol/L Potassium 4.3 (3.6-5.0) mmol/L Chloride 101.3 (98-107) mmol/L Carbon Dioxide 30 (22-30) mmol/L BUN 16 (7-17) mg/dL Creatinine 0.6 L (0.7-1.2) mg/dL Glucose 136 H (65-100) mg/dL Calcium 8.2 L (8.4-10.2) mg/dL
[2019-07-28] MEDS: TYLENOL PO PRN (00:14)
--- NOTE | 2019-07-28 02:26 | XRay Report ---
CHEST 1 VIEW INDICATION: Hypoxemia. COMPARISON: 07/24/2019. FINDINGS: Support devices: Central line and feeding tube unchanged. Heart: Within normal limits. Lungs/Pleura: Improving diffuse bilateral infiltrates with moderate residual. A left effusion is now small. Additional findings: None. IMPRESSION: Interval improvement with significant residual. Signer Name: Ryan Isidro MD Signed: 07/28/2019 2:21 AM Workstation Name: [id number]
[2019-07-28 05:24] LABS: ABG Base Excess 2.9 mmol/L (-2.0-3.0); ABG HCO3 25.7 mmol/L (20.0-26.0); ABG PCO2 33.8 mm Hg; ABG PH 7.498 pH Units (7.350-7.450); ABG PO2 59.8 mm Hg (80.0-90.0)
[2019-07-28 05:29] LABS: ABG Methemoglobin 0.6 % (0.0-1.5); ABG Oxygen Saturation 94.1 % (95.0-99.0)
--- NOTE | 2019-07-28 09:56 | Progress Note ---
Assessment and Plan - Patient Problems (1) Acute renal failure Current Visit: Yes Status: Acute Plan to address problem: Kidney function has improved. Follow-up electrolytes and renal function (2) Fluid overload Current Visit: Yes Status: Acute Plan to address problem: Diuresing briskly with Bumex and hydrochlorothiazide. CXR showed improving b/l pulmonary infiltrates. cont bumex 1mg po qd. Follow up volume status, electrolytes and renal function (3) Acute pyelonephritis Current Visit: Yes Status: Acute Plan to address problem: Continue antibiotics. (4) Hypokalemia Current Visit: Yes Status: Acute Plan to address problem: K replete. (5) Elevated LFTs Current Visit: Yes Status: Acute Plan to address problem: Ischemic Hepatitis. Follow-up liver function tests (6) Acute respiratory failure Current Visit: Yes Status: Acute Plan to address problem: Continue ventilator management as per ICU team (7) Cellulitis of right foot Current Visit: Yes Status: Resolved Plan to address problem: Continue antibiotics Subjective Date of service: 07/28/19 Principal diagnosis: Acute respiratory failure Interval history: Pt remains intubated, sedated Objective - Vital Signs Vital signs: Vital Signs - 12hr 07/27/19 07/27/19 07/27/19 22:00 22:30 23:00 Temperature Pulse Rate 105 H 102 H 102 H Pulse Rate [ From Monitor] Respiratory 24 24 26 H Rate Blood Pressure 98/53 90/55 96/56 O2 Sat by Pulse 93 93 95 Oximetry 07/27/19 07/27/19 07/27/19 23:10 23:30 23:35 Temperature 101.8 F H Pulse Rate 102 H 101 H Pulse Rate [ From Monitor] Respiratory 18 Rate Blood Pressure 96/56 96/59 O2 Sat by Pulse 96 97 Oximetry 07/28/19 07/28/19 07/28/19 00:00 00:07 00:30 Temperature Pulse Rate 105 H 103 H 103 H Pulse Rate [ 104 H From Monitor] Respiratory 26 H 26 H 24 Rate Blood Pressure 97/60 97/60 97/55 O2 Sat by Pulse 99 99 98 Oximetry 07/28/19 07/28/19 07/28/19 01:00 01:31 02:00 Temperature Pulse Rate 99 H 99 H 87 Pulse Rate [ From Monitor] Respiratory 26 H 24 26 H Rate Blood Pressure 92/51 92/51 91/55 O2 Sat by Pulse 94 96 Oximetry 07/28/19 07/28/19 07/28/19 02:30 02:54 03:00 Temperature 100.9 F H Pulse Rate 90 96 H Pulse Rate [ From Monitor] Respiratory 26 H 22 Rate Blood Pressure 91/57 102/65 O2 Sat by Pulse 97 97 Oximetry 07/28/19 07/28/19 07/28/19 03:30 04:00 04:30 Temperature Pulse Rate 98 H 102 H 104 H Pulse Rate [ 101 H From Monitor] Respiratory 23 26 H 24 Rate Blood Pressure 107/69 109/64 103/62 O2 Sat by Pulse 97 96 96 Oximetry 07/28/19 07/28/19 07/28/19 04:44 05:00 05:30 Temperature Pulse Rate 106 H 109 H 110 H Pulse Rate [ From Monitor] Respiratory 20 26 H Rate Blood Pressure 103/62 112/65 96/61 O2 Sat by Pulse 97 96 96 Oximetry 07/28/19 07/28/19 07/28/19 06:00 06:30 07:00 Temperature Pulse Rate 115 H 119 H 115 H Pulse Rate [ From Monitor] Respiratory 26 H 25 H 20 Rate Blood Pressure 120/67 107/63 103/55 O2 Sat by Pulse 98 100 98 Oximetry 07/28/19 07/28/19 07/28/19 07:30 08:00 08:07 Temperature 102.3 F H Pulse Rate 118 H 117 H 116 H Pulse Rate [ 117 H From Monitor] Respiratory 25 H 20 Rate Blood Pressure 101/56 101/56 101/56 O2 Sat by Pulse 97 97 97 Oximetry 07/28/19 08:30 Temperature Pulse Rate 118 H Pulse Rate [ From Monitor] Respiratory 26 H Rate Blood Pressure 106/55 O2 Sat by Pulse 97 Oximetry - General Appearance General appearance: well-developed, appears stated age, sedated on ventilator, intubated EENT: ATNC, PERRL, mucous membranes moist Neck: no JVD Respiratory: Present: Clear to Ascultation Cardiology: regular, S1S2 Gastrointestinal: normoactive bowel sounds Integumentary: no rash, other (no edema ) Neurologic: other (intubated, sedated ) - Lab 07/27/19 05:40 07/27/19 05:40 Most recent lab results ABG pH 7.498 pH Units (7.350-7.450) H 07/28/19 Unknown ABG pCO2 33.8 mm Hg 07/28/19 Unknown ABG pO2 59.8 mm Hg (80.0-90.0) L 07/28/19 Unknown ABG HCO3 25.7 mmol/L (20.0-26.0) 07/28/19 Unknown ABG O2 Saturation 94.1 % (95.0-99.0) L 07/28/19 Unknown Calcium 8.2 mg/dL (8.4-10.2) L 07/27/19 05:40 Phosphorus 2.50 mg/dL (2.5-4.5) 07/27/19 05:40 Magnesium 1.90 mg/dL (1.7-2.3) 07/27/19 05:40 76.6 mg/dL (0.1-20.0) H 07/16/19 14:30 39 mmol/L 07/16/19 14:30 Medications & Allergies - Medications Allergies/Adverse Reactions: Allergies latex Allergy (Verified 06/28/19 17:11) Anaphylaxis tramadol [From Ultram] Allergy (Verified 06/28/19 17:10) Unknown haloperidol [From Haldol] Adverse Reaction (Verified 07/17/19 05:55) Shortness of Breath agitation/combative ketorolac [From Toradol] Adverse Reaction (Verified 06/28/19 17:10) Seizure prochlorperazine [From Compazine] Adverse Reaction (Verified 06/28/19 17:11) Unknown Home Medications: Home Medications Medication Instructions Recorded Confirmed Last Taken Type No Known Home Medications [No 07/16/19 07/16/19 Unknown History Reported Home Medications] Active Medications: Generic Name Dose Route Start Last Admin Trade Name Freq PRN Reason Stop Dose Admin Acetaminophen 650 mg 07/16/19 05:36 07/28/19 00:14 Tylenol PO 650 mg Q4H PRN Administration Pain MILD(1-3)/Fever >100.5/WHALEN Albuterol 2.5 mg 07/16/19 22:48 07/16/19 23:01 Proventil IH 2.5 mg Q4HRT PRN Administration Shortness Of Breath Lipase/Protease/Amylase 1 each 07/18/19 14:34 Pancrenicolás Thomas 10,500 Unit FEEDTUBE PRN PRN For Clogged Feeding Tube Bumetanide 1 mg 07/27/19 13:00 07/27/19 12:28 Bumex PO 1 mg QDAY KASIE Administration Dextrose 50 ml 07/17/19 03:17 07/17/19 05:30 D50w (25gm) Syringe IV 50 ml PRN PRN Administration Hypoglycemia Enoxaparin Sodium 40 mg 07/20/19 10:00 07/27/19 12:27 Lovenox SUB-Q 40 mg QDAY@1000 KASIE Administration Famotidine 20 mg 07/20/19 10:00 07/27/19 22:25 Pepcid PO 20 mg BID KASIE Administration Fentanyl 50 mcg 07/17/19 03:18 07/17/19 04:53 Sublimaze IV 50 mcg Q10MIN PRN Administration ANALGESIA Hydrochlorothiazide 25 mg 07/23/19 10:00 07/27/19 12:28 Hctz PO 25 mg QDAY KASIE Administration Hydromorphone HCl 0.25 mg 07/16/19 05:36 07/21/19 01:07 Dilaudid IV 0.25 mg Q3H PRN Administration Pain, Moderate (4-6) Hydrophilic Ointment 1 applic 07/17/19 03:18 Vaseline Lip Therapy TP Q2HR PRN Dry Lips Midazolam HCl 100 mg/ Sodium 100 mls @ 2 mls/hr 07/17/19 04:00 07/28/19 08:55 Chloride IV 1 mg/hr TITR KASIE 1 mls/hr Titration Protocol 2 MG/HR Fentanyl Citrate 2,000 mcg in 100 mls @ 3.4 mls/hr 07/17/19 04:00 07/27/19 23:40 Fentanyl Drip Premix IV 2 mcg/kg/hr TITR KASIE 6.8 mls/hr Administration Protocol 1 MCG/KG/HR Ceftriaxone Sodium 2 gm in 100 mls @ 200 mls/hr 07/20/19 13:00 07/27/19 12:27 Rocephin/Ns 2 Gm/100 Ml IV 200 mls/hr Q24HR KASIE Administration Protocol Midazolam HCl 2 mg 07/17/19 03:18 07/20/19 23:32 Versed IV 2 mg Q10MIN PRN Administration Sedation Multi-Ingred Cream/Lotion/Oil/Oint 1 applic 07/17/19 03:18 Artificial Tears Ophth Oint OU Q4HR PRN Dry Eye(s) Nicotine 14 mg 07/16/19 10:00 07/27/19 12:28 Habitrol TD 14 mg QDAY KASIE Administration Ondansetron HCl 4 mg 07/16/19 05:36 07/16/19 21:16 Zofran IV 4 mg Q8H PRN Administration Nausea And Vomiting Oxycodone/Acetaminophen 1 tab 07/16/19 05:36 07/16/19 12:33 Percocet 5/325 PO 1 tab Q6H PRN Administration Pain, Moderate (4-6) Quetiapine Fumarate 25 mg 07/27/19 11:00 07/27/19 22:25 Seroquel PO 25 mg BID KASIE Administration Simple Syrup 15 ml 07/18/19 14:34 Simple Syrup FEEDTUBE PRN PRN Hypoglycemia Simple Syrup 30 ml 07/18/19 14:34 Simple Syrup FEEDTUBE PRN PRN Hypoglycemia Sodium Bicarbonate 325 mg 07/18/19 14:34 Sodium Bicarbonate FEEDTUBE PRN PRN For Clogged Feeding Tube Sodium Chloride 10 ml 07/16/19 10:00 07/27/19 22:25 Sodium Chloride Flush Syringe 10 Ml IV 10 ml BID KASIE Administration Sodium Chloride 10 ml 07/16/19 05:36 Sodium Chloride Flush Syringe 10 Ml IV PRN PRN LINE FLUSH
[2019-07-28] MEDS: SODIUM CHLORIDE FLUSH SYRINGE 10 ML IV SCH ×2 (10:00→22:31)
[2019-07-28] MEDS ORDERED: XYLOCAINE 1% 20 mL ONE (10:47)
[2019-07-28] MEDS ORDERED: SUBLIMAZE ONE (10:51)
[2019-07-28] MEDS ORDERED: VERSED IV ONE (10:51)
[2019-07-28] MEDS ORDERED: SUBLIMAZE IV ONE ×2 (10:51→12:00)
[2019-07-28] MEDS ORDERED: XYLOCAINE 1% 20 mL INFILTRATI ONE (11:00)
[2019-07-28] MEDS: fentaNYL DRIP Premix 2,000 MCG/100 ML BAG IV SCH (11:43)
[2019-07-28] MEDS: LOVENOX SUB-Q SCH (11:49)
[2019-07-28] MEDS: BUMEX PO SCH (11:50)
[2019-07-28] MEDS: HCTZ PO SCH (11:50)
[2019-07-28] MEDS: PEPCID PO SCH ×2 (11:51→22:28)
[2019-07-28] MEDS: HABITROL TD SCH (11:51)
[2019-07-28] MEDS: ROCEPHIN/NS 2 GM/100 ML 2 GM/100 ML BAG IV SCH (11:51)
--- NOTE | 2019-07-28 12:14 | Progress Note ---
Assessment and Plan 44 y/o female with abdominal pain found to have right sided mass vs cysts with acute vs chronic vs acute chronic renal failure, UTI and possible cellulitis of lower ext 1. Will bronch today and send for culture. Continue supportive vent measures. Subjective Date of service: 07/28/19 Principal diagnosis: Acute respiratory failure Interval history: Still febrile. PaO2 was unchanged but Respiratory increased FiO2 to 35%. Boyfriend at bedside and I spoke to mother on phone to obtain consent for bronch. Objective Vital Signs - 12hr 07/28/19 07/28/19 07/28/19 00:30 01:00 01:31 Temperature Pulse Rate 103 H 99 H 99 H Pulse Rate [ From Monitor] Respiratory 24 26 H 24 Rate Blood Pressure 97/55 92/51 92/51 O2 Sat by Pulse 98 94 Oximetry 07/28/19 07/28/19 07/28/19 02:00 02:30 02:54 Temperature 100.9 F H Pulse Rate 87 90 Pulse Rate [ From Monitor] Respiratory 26 H 26 H Rate Blood Pressure 91/55 91/57 O2 Sat by Pulse 96 97 Oximetry 07/28/19 07/28/19 07/28/19 03:00 03:30 04:00 Temperature Pulse Rate 96 H 98 H 102 H Pulse Rate [ 101 H From Monitor] Respiratory 22 23 26 H Rate Blood Pressure 102/65 107/69 109/64 O2 Sat by Pulse 97 97 96 Oximetry 07/28/19 07/28/19 07/28/19 04:30 04:44 05:00 Temperature Pulse Rate 104 H 106 H 109 H Pulse Rate [ From Monitor] Respiratory 24 20 Rate Blood Pressure 103/62 103/62 112/65 O2 Sat by Pulse 96 97 96 Oximetry 07/28/19 07/28/19 07/28/19 05:30 06:00 06:30 Temperature Pulse Rate 110 H 115 H 119 H Pulse Rate [ From Monitor] Respiratory 26 H 26 H 25 H Rate Blood Pressure 96/61 120/67 107/63 O2 Sat by Pulse 96 98 100 Oximetry 07/28/19 07/28/19 07/28/19 07:00 07:30 08:00 Temperature 102.3 F H Pulse Rate 115 H 118 H 117 H Pulse Rate [ 117 H From Monitor] Respiratory 20 25 H 20 Rate Blood Pressure 103/55 101/56 101/56 O2 Sat by Pulse 98 97 97 Oximetry 07/28/19 07/28/19 07/28/19 08:07 08:30 09:00 Temperature Pulse Rate 116 H 118 H 117 H Pulse Rate [ From Monitor] Respiratory 26 H 27 H Rate Blood Pressure 101/56 106/55 97/61 O2 Sat by Pulse 97 97 98 Oximetry 07/28/19 07/28/19 07/28/19 09:30 10:00 10:28 Temperature Pulse Rate 113 H 113 H 118 H Pulse Rate [ From Monitor] Respiratory 21 22 Rate Blood Pressure 104/60 110/62 106/55 O2 Sat by Pulse 100 100 97 Oximetry 07/28/19 07/28/19 07/28/19 10:30 10:55 11:11 Temperature Pulse Rate 114 H Pulse Rate [ From Monitor] Respiratory 24 27 H Rate Blood Pressure 99/65 O2 Sat by Pulse 99 100 Oximetry 07/28/19 07/28/19 11:22 12:00 Temperature 103.8 F H Pulse Rate 136 H Pulse Rate [ From Monitor] Respiratory 26 H Rate Blood Pressure 162/71 127/75 O2 Sat by Pulse 96 Oximetry Constitutional: other (sedated, critically ill on ventilator. Opens eyes to tactile stimule) Eyes: non-icteric ENT: other (orally intubated and sedated) Neck: supple Effort: normal Ascultation: Bilateral: rales, other (coarse equal BS bilaterally) Percussion: Bilateral: not dull Cardiovascular: regular rate and rhythm (sinus tach) Gastrointestinal: normoactive bowel sounds, soft, non-tender, non-distended Integumentary: normal Extremities: no cyanosis, no edema, pink and warm Neurologic: non-focal exam, other (sedated opens eyes to tactile stimuli) Psychiatric: other (unable to obtain) CBC and BMP: 08/01/19 08:30 08/01/19 08:30 ABG, PT/INR, D-dimer: ABG POC ABG pH 7.460 (7.35-7.45) H 07/27/19 06:29 ABG pH 7.498 pH Units (7.350-7.450) H 07/28/19 Unknown POC ABG pCO2 42.4 (35-45) 07/27/19 06:29 ABG pCO2 33.8 mm Hg 07/28/19 Unknown POC ABG pO2 60 (80-105) L 07/27/19 06:29 ABG pO2 59.8 mm Hg (80.0-90.0) L 07/28/19 Unknown POC ABG HCO3 30.1 (22-26 mml/L) 07/27/19 06:29 POC ABG Total CO2 31 (23-27mmol/L) 07/27/19 06:29 POC ABG O2 Sat 92 07/27/19 06:29 ABG O2 Saturation 94.1 % (95.0-99.0) L 07/28/19 Unknown PT/INR, D-dimer PT 16.3 Sec. (12.2-14.9) H 07/16/19 05:47 INR 1.35 (0.87-1.13) H 07/16/19 05:47 Abnormal lab findings: Abnormal Labs 07/16/19 07/16/19 07/16/19 02:01 02:01 02:01 WBC 11.7 H RBC Hgb Hct RDW Plt Count 101 L [place] % (Auto) [place] # Seg Neutrophils % Seg Neuts % (Manual) 92.0 H Lymphocytes % (Manual) 5.0 L Monocytes % (Manual) Eosinophils % (Manual) Seg Neutrophils # Seg Neutrophils # Man 10.8 H Lymphocytes # (Manual) 0.6 L Monocytes # (Manual) Eosinophils # (Manual) PT 15.2 H INR 1.23 H POC ABG pH ABG pH POC ABG pCO2 POC ABG pO2 ABG pO2 ABG HCO3 ABG O2 Saturation ABG Base Excess ABG Hemoglobin Oxyhemoglobin Sodium Potassium Chloride Carbon Dioxide 18 L BUN 46 H Creatinine 2.2 H Glucose 116 H POC Glucose Lactic Acid Calcium Phosphorus Magnesium Total Bilirubin Direct Bilirubin AST 63 H ALT 125 H Alkaline Phosphatase Total Protein 6.2 L Albumin 2.8 L Lipase Urine WBC (Auto) U Epithel Cells (Auto) Urine Creatinine Hepatitis C Antibody 07/16/19 07/16/19 07/16/19 02:16 02:43 04:07 WBC RBC Hgb Hct RDW Plt Count [place] % (Auto) [place] # Seg Neutrophils % Seg Neuts % (Manual) Lymphocytes % (Manual) Monocytes % (Manual) Eosinophils % (Manual) Seg Neutrophils # Seg Neutrophils # Man Lymphocytes # (Manual) Monocytes # (Manual) Eosinophils # (Manual) PT INR POC ABG pH ABG pH POC ABG pCO2 POC ABG pO2 ABG pO2 ABG HCO3 ABG O2 Saturation ABG Base Excess ABG Hemoglobin Oxyhemoglobin Sodium Potassium Chloride Carbon Dioxide BUN Creatinine Glucose POC Glucose Lactic Acid 2.10 H* 2.30 H* Calcium Phosphorus Magnesium Total Bilirubin Direct Bilirubin AST ALT Alkaline Phosphatase Total Protein Albumin Lipase 6 L Urine WBC (Auto) U Epithel Cells (Auto) Urine Creatinine Hepatitis C Antibody 07/16/19 07/16/19 07/16/19 05:47 05:59 14:30 WBC RBC Hgb Hct RDW Plt Count [place] % (Auto) [place] # Seg Neutrophils % Seg Neuts % (Manual) Lymphocytes % (Manual) Monocytes % (Manual) Eosinophils % (Manual) Seg Neutrophils # Seg Neutrophils # Man Lymphocytes # (Manual) Monocytes # (Manual) Eosinophils # (Manual) PT 16.3 H INR 1.35 H POC ABG pH ABG pH POC ABG pCO2 POC ABG pO2 ABG pO2 ABG HCO3 ABG O2 Saturation ABG Base Excess ABG Hemoglobin Oxyhemoglobin Sodium Potassium Chloride Carbon Dioxide BUN Creatinine Glucose POC Glucose Lactic Acid Calcium Phosphorus Magnesium Total Bilirubin Direct Bilirubin AST ALT Alkaline Phosphatase Total Protein Albumin Lipase Urine WBC (Auto) > 182.0 H U Epithel Cells (Auto) 21.0 H Urine Creatinine 76.6 H Hepatitis C Antibody 07/16/19 07/17/19 07/17/19 23:27 00:03 00:03 WBC RBC Hgb Hct RDW Plt Count [place] % (Auto) [place] # Seg Neutrophils % Seg Neuts % (Manual) Lymphocytes % (Manual) Monocytes % (Manual) Eosinophils % (Manual) Seg Neutrophils # Seg Neutrophils # Man Lymphocytes # (Manual) Monocytes # (Manual) Eosinophils # (Manual) PT INR POC ABG pH 7.093 L ABG pH POC ABG pCO2 32.8 L POC ABG pO2 66 L ABG pO2 ABG HCO3 ABG O2 Saturation ABG Base Excess ABG Hemoglobin Oxyhemoglobin Sodium 148 H D Potassium Chloride 120.5 H Carbon Dioxide 14 L BUN 35 H Creatinine 1.5 H Glucose 42 L POC Glucose Lactic Acid 2.90 H* Calcium 5.7 L* D Phosphorus Magnesium Total Bilirubin Direct Bilirubin AST ALT Alkaline Phosphatase Total Protein Albumin Lipase Urine WBC (Auto) U Epithel Cells (Auto) Urine Creatinine Hepatitis C Antibody 07/17/19 07/17/19 07/17/19 03:01 03:29 03:40 WBC 13.2 H RBC Hgb Hct RDW Plt Count 116 L [place] % (Auto) [place] # Seg Neutrophils % Seg Neuts % (Manual) Lymphocytes % (Manual) 9.0 L Monocytes % (Manual) Eosinophils % (Manual) 24.0 H Seg Neutrophils # Seg Neutrophils # Man 8.6 H Lymphocytes # (Manual) Monocytes # (Manual) Eosinophils # (Manual) 3.2 H PT INR POC ABG pH 6.981 L ABG pH POC ABG pCO2 55.6 H POC ABG pO2 ABG pO2 ABG HCO3 ABG O2 Saturation ABG Base Excess ABG Hemoglobin Oxyhemoglobin Sodium Potassium Chloride Carbon Dioxide BUN Creatinine Glucose POC Glucose 64 L Lactic Acid Calcium Phosphorus Magnesium Total Bilirubin Direct Bilirubin AST ALT Alkaline Phosphatase Total Protein Albumin Lipase Urine WBC (Auto) U Epithel Cells (Auto) Urine Creatinine Hepatitis C Antibody 07/17/19 07/17/19 07/17/19 03:40 03:40 04:08 WBC RBC Hgb Hct RDW Plt Count [place] % (Auto) [place] # Seg Neutrophils % Seg Neuts % (Manual) Lymphocytes % (Manual) Monocytes % (Manual) Eosinophils % (Manual) Seg Neutrophils # Seg Neutrophils # Man Lymphocytes # (Manual) Monocytes # (Manual) Eosinophils # (Manual) PT INR POC ABG pH 7.056 L ABG pH POC ABG pCO2 POC ABG pO2 63 L ABG pO2 ABG HCO3 ABG O2 Saturation ABG Base Excess ABG Hemoglobin Oxyhemoglobin Sodium 147 H Potassium Chloride 120.2 H Carbon Dioxide 14 L BUN 36 H Creatinine 1.6 H Glucose POC Glucose Lactic Acid 3.20 H* Calcium 6.0 L Phosphorus Magnesium Total Bilirubin Direct Bilirubin AST ALT Alkaline Phosphatase Total Protein Albumin Lipase Urine WBC (Auto) U Epithel Cells (Auto) Urine Creatinine Hepatitis C Antibody 07/17/19 07/17/19 07/17/19 05:33 05:45 06:51 WBC RBC Hgb Hct RDW Plt Count [place] % (Auto) [place] # Seg Neutrophils % Seg Neuts % (Manual) Lymphocytes % (Manual) Monocytes % (Manual) Eosinophils % (Manual) Seg Neutrophils # Seg Neutrophils # Man Lymphocytes # (Manual) Monocytes # (Manual) Eosinophils # (Manual) PT INR POC ABG pH 7.061 L ABG pH POC ABG pCO2 49.0 H POC ABG pO2 ABG pO2 ABG HCO3 ABG O2 Saturation ABG Base Excess ABG Hemoglobin Oxyhemoglobin Sodium Potassium Chloride Carbon Dioxide BUN Creatinine Glucose POC Glucose 64 L 239 H Lactic Acid Calcium Phosphorus Magnesium Total Bilirubin Direct Bilirubin AST ALT Alkaline Phosphatase Total Protein Albumin Lipase Urine WBC (Auto) U Epithel Cells (Auto) Urine Creatinine Hepatitis C Antibody 07/17/19 07/17/19 07/17/19 10:57 12:56 18:11 WBC RBC Hgb Hct RDW Plt Count [place] % (Auto) [place] # Seg Neutrophils % Seg Neuts % (Manual) Lymphocytes % (Manual) Monocytes % (Manual) Eosinophils % (Manual) Seg Neutrophils # Seg Neutrophils # Man Lymphocytes # (Manual) Monocytes # (Manual) Eosinophils # (Manual) PT INR POC ABG pH ABG pH 7.192 L* POC ABG pCO2 POC ABG pO2 ABG pO2 67.5 L ABG HCO3 16.3 L ABG O2 Saturation 92.6 L ABG Base Excess -11.4 L ABG Hemoglobin Oxyhemoglobin 91.1 L Sodium Potassium Chloride Carbon Dioxide BUN Creatinine Glucose POC Glucose 107 H 122 H Lactic Acid Calcium Phosphorus Magnesium Total Bilirubin Direct Bilirubin AST ALT Alkaline Phosphatase Total Protein Albumin Lipase Urine WBC (Auto) U Epithel Cells (Auto) Urine Creatinine Hepatitis C Antibody 07/17/19 07/17/19 07/18/19 23:34 Unknown 04:00 WBC RBC Hgb Hct RDW Plt Count 85 L [place] % (Auto) [place] # Seg Neutrophils % Seg Neuts % (Manual) 82.0 H Lymphocytes % (Manual) 2.0 L Monocytes % (Manual) 12.0 H Eosinophils % (Manual) Seg Neutrophils # Seg Neutrophils # Man Lymphocytes # (Manual) 0.2 L Monocytes # (Manual) 1.1 H Eosinophils # (Manual) PT INR POC ABG pH ABG pH 7.237 L POC ABG pCO2 POC ABG pO2 ABG pO2 142.4 H ABG HCO3 17.0 L ABG O2 Saturation ABG Base Excess -9.8 L ABG Hemoglobin Oxyhemoglobin Sodium Potassium Chloride Carbon Dioxide BUN Creatinine Glucose POC Glucose 136 H Lactic Acid Calcium Phosphorus Magnesium Total Bilirubin Direct Bilirubin AST ALT Alkaline Phosphatase Total Protein Albumin Lipase Urine WBC (Auto) U Epithel Cells (Auto) Urine Creatinine Hepatitis C Antibody 07/18/19 07/18/19 07/18/19 04:00 05:31 05:51 WBC RBC Hgb Hct RDW Plt Count [place] % (Auto) [place] # Seg Neutrophils % Seg Neuts % (Manual) Lymphocytes % (Manual) Monocytes % (Manual) Eosinophils % (Manual) Seg Neutrophils # Seg Neutrophils # Man Lymphocytes # (Manual) Monocytes # (Manual) Eosinophils # (Manual) PT INR POC ABG pH 7.239 L ABG pH POC ABG pCO2 56.9 H POC ABG pO2 ABG pO2 ABG HCO3 ABG O2 Saturation ABG Base Excess ABG Hemoglobin Oxyhemoglobin Sodium 151 H Potassium 3.2 L D Chloride 114.7 H Carbon Dioxide BUN 42 H Creatinine 2.1 H Glucose 130 H POC Glucose 135 H Lactic Acid Calcium 6.0 L Phosphorus Magnesium Total Bilirubin 2.10 H Direct Bilirubin AST 59 H ALT 62 H Alkaline Phosphatase Total Protein 4.8 L D Albumin 2.0 L Lipase Urine WBC (Auto) U Epithel Cells (Auto) Urine Creatinine Hepatitis C Antibody 07/18/19 07/18/19 07/18/19 12:05 18:30 23:40 WBC RBC Hgb Hct RDW Plt Count [place] % (Auto) [place] # Seg Neutrophils % Seg Neuts % (Manual) Lymphocytes % (Manual) Monocytes % (Manual) Eosinophils % (Manual) Seg Neutrophils # Seg Neutrophils # Man Lymphocytes # (Manual) Monocytes # (Manual) Eosinophils # (Manual) PT INR POC ABG pH ABG pH POC ABG pCO2 POC ABG pO2 ABG pO2 ABG HCO3 ABG O2 Saturation ABG Base Excess ABG Hemoglobin Oxyhemoglobin Sodium Potassium Chloride Carbon Dioxide BUN Creatinine Glucose POC Glucose 126 H 131 H 163 H Lactic Acid Calcium Phosphorus Magnesium Total Bilirubin Direct Bilirubin AST ALT Alkaline Phosphatase Total Protein Albumin Lipase Urine WBC (Auto) U Epithel Cells (Auto) Urine Creatinine Hepatitis C Antibody 07/19/19 07/19/19 07/19/19 03:35 04:57 08:15 WBC 11.1 H RBC 3.64 L Hgb Hct RDW Plt Count 71 L [place] % (Auto) [place] # Seg Neutrophils % Seg Neuts % (Manual) Lymphocytes % (Manual) Monocytes % (Manual) Eosinophils % (Manual) Seg Neutrophils # Seg Neutrophils # Man Lymphocytes # (Manual) Monocytes # (Manual) Eosinophils # (Manual) PT INR POC ABG pH ABG pH 7.296 L POC ABG pCO2 POC ABG pO2 ABG pO2 78.7 L ABG HCO3 26.4 H ABG O2 Saturation ABG Base Excess ABG Hemoglobin 11.1 L Oxyhemoglobin 93.3 L Sodium Potassium Chloride Carbon Dioxide BUN Creatinine Glucose POC Glucose 170 H Lactic Acid Calcium Phosphorus Magnesium Total Bilirubin Direct Bilirubin AST ALT Alkaline Phosphatase Total Protein Albumin Lipase Urine WBC (Auto) U Epithel Cells (Auto) Urine Creatinine Hepatitis C Antibody 07/19/19 07/19/19 07/19/19 08:15 12:34 18:32 WBC RBC Hgb Hct RDW Plt Count [place] % (Auto) [place] # Seg Neutrophils % Seg Neuts % (Manual) Lymphocytes % (Manual) Monocytes % (Manual) Eosinophils % (Manual) Seg Neutrophils # Seg Neutrophils # Man Lymphocytes # (Manual) Monocytes # (Manual) Eosinophils # (Manual) PT INR POC ABG pH ABG pH POC ABG pCO2 POC ABG pO2 ABG pO2 ABG HCO3 ABG O2 Saturation ABG Base Excess ABG Hemoglobin Oxyhemoglobin Sodium 146 H Potassium 2.9 L* Chloride 107.9 H Carbon Dioxide BUN 35 H Creatinine 1.5 H Glucose 156 H POC Glucose 160 H 138 H Lactic Acid Calcium 6.6 L Phosphorus Magnesium Total Bilirubin Direct Bilirubin AST ALT Alkaline Phosphatase Total Protein Albumin Lipase Urine WBC (Auto) U Epithel Cells (Auto) Urine Creatinine Hepatitis C Antibody 07/19/19 07/19/19 07/20/19 23:41 Unknown 04:20 WBC RBC Hgb Hct RDW Plt Count [place] % (Auto) [place] # Seg Neutrophils % Seg Neuts % (Manual) Lymphocytes % (Manual) Monocytes % (Manual) Eosinophils % (Manual) Seg Neutrophils # Seg Neutrophils # Man Lymphocytes # (Manual) Monocytes # (Manual) Eosinophils # (Manual) PT INR POC ABG pH ABG pH 7.316 L POC ABG pCO2 POC ABG pO2 ABG pO2 ABG HCO3 27.9 H ABG O2 Saturation ABG Base Excess ABG Hemoglobin Oxyhemoglobin 94.0 L Sodium 149 H Potassium 3.2 L Chloride 112.3 H Carbon Dioxide BUN 34 H Creatinine Glucose 162 H POC Glucose 145 H Lactic Acid Calcium 7.0 L Phosphorus Magnesium 1.50 L Total Bilirubin Direct Bilirubin AST ALT Alkaline Phosphatase Total Protein Albumin Lipase Urine WBC (Auto) U Epithel Cells (Auto) Urine Creatinine Hepatitis C Antibody 07/20/19 07/20/19 07/20/19 05:25 07:50 07:50 WBC 12.6 H RBC 3.51 L Hgb Hct RDW Plt Count 56 L [place] % (Auto) [place] # Seg Neutrophils % Seg Neuts % (Manual) 89.0 H Lymphocytes % (Manual) 5.0 L Monocytes % (Manual) Eosinophils % (Manual) Seg Neutrophils # Seg Neutrophils # Man 11.2 H Lymphocytes # (Manual) 0.6 L Monocytes # (Manual) Eosinophils # (Manual) PT INR POC ABG pH ABG pH POC ABG pCO2 POC ABG pO2 ABG pO2 ABG HCO3 ABG O2 Saturation ABG Base Excess ABG Hemoglobin Oxyhemoglobin Sodium 151 H Potassium 3.4 L Chloride 114.7 H Carbon Dioxide 31 H BUN 30 H Creatinine Glucose 148 H POC Glucose 141 H Lactic Acid Calcium 7.3 L Phosphorus Magnesium Total Bilirubin Direct Bilirubin AST ALT Alkaline Phosphatase Total Protein Albumin Lipase Urine WBC (Auto) U Epithel Cells (Auto) Urine Creatinine Hepatitis C Antibody 07/20/19 07/20/19 07/20/19 15:47 17:25 23:57 WBC RBC Hgb Hct RDW Plt Count [place] % (Auto) [place] # Seg Neutrophils % Seg Neuts % (Manual) Lymphocytes % (Manual) Monocytes % (Manual) Eosinophils % (Manual) Seg Neutrophils # Seg Neutrophils # Man Lymphocytes # (Manual) Monocytes # (Manual) Eosinophils # (Manual) PT INR POC ABG pH ABG pH POC ABG pCO2 POC ABG pO2 ABG pO2 ABG HCO3 ABG O2 Saturation ABG Base Excess ABG Hemoglobin Oxyhemoglobin Sodium Potassium Chloride Carbon Dioxide BUN Creatinine Glucose POC Glucose 160 H 165 H 122 H Lactic Acid Calcium Phosphorus Magnesium Total Bilirubin Direct Bilirubin AST ALT Alkaline Phosphatase Total Protein Albumin Lipase Urine WBC (Auto) U Epithel Cells (Auto) Urine Creatinine Hepatitis C Antibody 07/21/19 07/21/19 07/21/19 05:00 05:00 05:00 WBC 15.8 H RBC Hgb Hct RDW Plt Count 56 L [place] % (Auto) [place] # Seg Neutrophils % Seg Neuts % (Manual) Lymphocytes % (Manual) Monocytes % (Manual) Eosinophils % (Manual) Seg Neutrophils # Seg Neutrophils # Man Lymphocytes # (Manual) Monocytes # (Manual) Eosinophils # (Manual) PT INR POC ABG pH ABG pH POC ABG pCO2 POC ABG pO2 ABG pO2 ABG HCO3 ABG O2 Saturation ABG Base Excess ABG Hemoglobin Oxyhemoglobin Sodium 147 H Potassium 3.5 L Chloride 111.4 H Carbon Dioxide BUN 21 H Creatinine Glucose 107 H POC Glucose Lactic Acid Calcium 7.6 L Phosphorus 1.60 L Magnesium Total Bilirubin 4.80 H Direct Bilirubin AST 48 H ALT Alkaline Phosphatase 131 H Total Protein 4.3 L Albumin 1.5 L Lipase Urine WBC (Auto) U Epithel Cells (Auto) Urine Creatinine Hepatitis C Antibody 07/21/19 07/21/19 07/21/19 05:34 12:12 18:22 WBC RBC Hgb Hct RDW Plt Count [place] % (Auto) [place] # Seg Neutrophils % Seg Neuts % (Manual) Lymphocytes % (Manual) Monocytes % (Manual) Eosinophils % (Manual) Seg Neutrophils # Seg Neutrophils # Man Lymphocytes # (Manual) Monocytes # (Manual) Eosinophils # (Manual) PT INR POC ABG pH ABG pH POC ABG pCO2 POC ABG pO2 ABG pO2 ABG HCO3 ABG O2 Saturation ABG Base Excess ABG Hemoglobin Oxyhemoglobin Sodium Potassium Chloride Carbon Dioxide BUN Creatinine Glucose POC Glucose 119 H 108 H 125 H Lactic Acid Calcium Phosphorus Magnesium Total Bilirubin Direct Bilirubin AST ALT Alkaline Phosphatase Total Protein Albumin Lipase Urine WBC (Auto) U Epithel Cells (Auto) Urine Creatinine Hepatitis C Antibody 07/21/19 07/21/19 07/22/19 23:27 Unknown 04:25 WBC RBC Hgb Hct RDW Plt Count [place] % (Auto) [place] # Seg Neutrophils % Seg Neuts % (Manual) Lymphocytes % (Manual) Monocytes % (Manual) Eosinophils % (Manual) Seg Neutrophils # Seg Neutrophils # Man Lymphocytes # (Manual) Monocytes # (Manual) Eosinophils # (Manual) PT INR POC ABG pH ABG pH POC ABG pCO2 POC ABG pO2 ABG pO2 61.9 L 68.7 L ABG HCO3 28.9 H 29.1 H ABG O2 Saturation 93.5 L 94.4 L ABG Base Excess 3.5 H ABG Hemoglobin 10.8 L 11.5 L Oxyhemoglobin 91.6 L 92.3 L Sodium Potassium Chloride Carbon Dioxide BUN Creatinine Glucose POC Glucose 126 H Lactic Acid Calcium Phosphorus Magnesium Total Bilirubin Direct Bilirubin AST ALT Alkaline Phosphatase Total Protein Albumin Lipase Urine WBC (Auto) U Epithel Cells (Auto) Urine Creatinine Hepatitis C Antibody 07/22/19 07/22/19 07/22/19 05:25 07:00 07:00 WBC 14.9 H RBC Hgb Hct RDW Plt Count 87 L [place] % (Auto) [place] # Seg Neutrophils % Seg Neuts % (Manual) Lymphocytes % (Manual) Monocytes % (Manual) Eosinophils % (Manual) Seg Neutrophils # Seg Neutrophils # Man Lymphocytes # (Manual) Monocytes # (Manual) Eosinophils # (Manual) PT INR POC ABG pH ABG pH POC ABG pCO2 POC ABG pO2 ABG pO2 ABG HCO3 ABG O2 Saturation ABG Base Excess ABG Hemoglobin Oxyhemoglobin Sodium 147 H Potassium 3.3 L Chloride 110.9 H Carbon Dioxide BUN Creatinine 0.6 L Glucose 107 H POC Glucose 107 H Lactic Acid Calcium 7.5 L Phosphorus Magnesium Total Bilirubin Direct Bilirubin AST ALT Alkaline Phosphatase Total Protein Albumin Lipase Urine WBC (Auto) U Epithel Cells (Auto) Urine Creatinine Hepatitis C Antibody 07/22/19 07/22/19 07/23/19 17:41 23:40 04:50 WBC RBC Hgb Hct RDW Plt Count [place] % (Auto) [place] # Seg Neutrophils % Seg Neuts % (Manual) Lymphocytes % (Manual) Monocytes % (Manual) Eosinophils % (Manual) Seg Neutrophils # Seg Neutrophils # Man Lymphocytes # (Manual) Monocytes # (Manual) Eosinophils # (Manual) PT INR POC ABG pH ABG pH POC ABG pCO2 POC ABG pO2 ABG pO2 ABG HCO3 ABG O2 Saturation ABG Base Excess ABG Hemoglobin Oxyhemoglobin Sodium Potassium Chloride Carbon Dioxide BUN Creatinine 0.6 L Glucose 102 H POC Glucose 132 H 123 H Lactic Acid Calcium 7.8 L Phosphorus Magnesium 1.50 L Total Bilirubin Direct Bilirubin AST ALT Alkaline Phosphatase Total Protein Albumin Lipase Urine WBC (Auto) U Epithel Cells (Auto) Urine Creatinine Hepatitis C Antibody 07/23/19 07/23/19 07/23/19 05:00 10:50 10:50 WBC 13.0 H RBC 3.41 L Hgb Hct RDW Plt Count 100 L [place] % (Auto) [place] # Seg Neutrophils % Seg Neuts % (Manual) Lymphocytes % (Manual) Monocytes % (Manual) Eosinophils % (Manual) Seg Neutrophils # Seg Neutrophils # Man Lymphocytes # (Manual) Monocytes # (Manual) Eosinophils # (Manual) PT INR POC ABG pH ABG pH POC ABG pCO2 POC ABG pO2 ABG pO2 100.4 H ABG HCO3 28.7 H ABG O2 Saturation ABG Base Excess ABG Hemoglobin 11.0 L Oxyhemoglobin Sodium Potassium Chloride Carbon Dioxide BUN Creatinine Glucose POC Glucose Lactic Acid Calcium Phosphorus Magnesium Total Bilirubin 2.60 H Direct Bilirubin 2.2 H AST 41 H ALT Alkaline Phosphatase Total Protein 4.4 L Albumin 1.4 L Lipase Urine WBC (Auto) U Epithel Cells (Auto) Urine Creatinine Hepatitis C Antibody 07/23/19 07/23/19 07/23/19 11:49 11:49 17:42 WBC RBC Hgb Hct RDW Plt Count [place] % (Auto) [place] # Seg Neutrophils % Seg Neuts % (Manual) Lymphocytes % (Manual) Monocytes % (Manual) Eosinophils % (Manual) Seg Neutrophils # Seg Neutrophils # Man Lymphocytes # (Manual) Monocytes # (Manual) Eosinophils # (Manual) PT INR POC ABG pH ABG pH POC ABG pCO2 POC ABG pO2 ABG pO2 ABG HCO3 ABG O2 Saturation ABG Base Excess ABG Hemoglobin Oxyhemoglobin Sodium Potassium Chloride Carbon Dioxide BUN Creatinine Glucose POC Glucose 109 H 124 H Lactic Acid Calcium Phosphorus Magnesium Total Bilirubin Direct Bilirubin AST ALT Alkaline Phosphatase Total Protein Albumin Lipase Urine WBC (Auto) U Epithel Cells (Auto) Urine Creatinine Hepatitis C Antibody Reactive A 07/23/19 07/24/19 07/24/19 23:37 03:34 03:34 WBC 13.7 H RBC 3.39 L Hgb Hct 29.9 L RDW Plt Count 116 L [place] % (Auto) [place] # Seg Neutrophils % 77.7 H Seg Neuts % (Manual) Lymphocytes % (Manual) Monocytes % (Manual) Eosinophils % (Manual) Seg Neutrophils # 10.6 H Seg Neutrophils # Man Lymphocytes # (Manual) Monocytes # (Manual) Eosinophils # (Manual) PT INR POC ABG pH ABG pH POC ABG pCO2 POC ABG pO2 ABG pO2 ABG HCO3 ABG O2 Saturation ABG Base Excess ABG Hemoglobin Oxyhemoglobin Sodium Potassium 3.3 L Chloride Carbon Dioxide 35 H BUN Creatinine 0.6 L Glucose 139 H POC Glucose 145 H Lactic Acid Calcium 7.7 L Phosphorus Magnesium Total Bilirubin Direct Bilirubin AST ALT Alkaline Phosphatase Total Protein Albumin Lipase Urine WBC (Auto) U Epithel Cells (Auto) Urine Creatinine Hepatitis C Antibody 07/24/19 07/24/19 07/24/19 04:50 05:11 11:29 WBC RBC Hgb Hct RDW Plt Count [place] % (Auto) [place] # Seg Neutrophils % Seg Neuts % (Manual) Lymphocytes % (Manual) Monocytes % (Manual) Eosinophils % (Manual) Seg Neutrophils # Seg Neutrophils # Man Lymphocytes # (Manual) Monocytes # (Manual) Eosinophils # (Manual) PT INR POC ABG pH ABG pH 7.457 H POC ABG pCO2 POC ABG pO2 ABG pO2 138.3 H ABG HCO3 32.1 H ABG O2 Saturation ABG Base Excess 7.4 H ABG Hemoglobin 8.2 L Oxyhemoglobin Sodium Potassium Chloride Carbon Dioxide BUN Creatinine Glucose POC Glucose 128 H 123 H Lactic Acid Calcium Phosphorus Magnesium Total Bilirubin Direct Bilirubin AST ALT Alkaline Phosphatase Total Protein Albumin Lipase Urine WBC (Auto) U Epithel Cells (Auto) Urine Creatinine Hepatitis C Antibody 07/24/19 07/24/19 07/25/19 17:50 23:39 04:09 WBC 12.5 H RBC 3.13 L Hgb 9.3 L Hct 27.7 L RDW Plt Count [place] % (Auto) [place] # Seg Neutrophils % 77.2 H Seg Neuts % (Manual) Lymphocytes % (Manual) Monocytes % (Manual) Eosinophils % (Manual) Seg Neutrophils # 9.6 H Seg Neutrophils # Man Lymphocytes # (Manual) Monocytes # (Manual) Eosinophils # (Manual) PT INR POC ABG pH ABG pH POC ABG pCO2 POC ABG pO2 ABG pO2 ABG HCO3 ABG O2 Saturation ABG Base Excess ABG Hemoglobin Oxyhemoglobin Sodium Potassium Chloride Carbon Dioxide BUN Creatinine Glucose POC Glucose 125 H 144 H Lactic Acid Calcium Phosphorus Magnesium Total Bilirubin Direct Bilirubin AST ALT Alkaline Phosphatase Total Protein Albumin Lipase Urine WBC (Auto) U Epithel Cells (Auto) Urine Creatinine Hepatitis C Antibody 07/25/19 07/25/19 07/25/19 04:09 05:12 05:29 WBC RBC Hgb Hct RDW Plt Count [place] % (Auto) [place] # Seg Neutrophils % Seg Neuts % (Manual) Lymphocytes % (Manual) Monocytes % (Manual) Eosinophils % (Manual) Seg Neutrophils # Seg Neutrophils # Man Lymphocytes # (Manual) Monocytes # (Manual) Eosinophils # (Manual) PT INR POC ABG pH ABG pH POC ABG pCO2 POC ABG pO2 ABG pO2 65.7 L ABG HCO3 33.6 H ABG O2 Saturation 92.8 L ABG Base Excess 7.9 H ABG Hemoglobin 11.9 L Oxyhemoglobin 90.7 L Sodium Potassium 3.1 L Chloride Carbon Dioxide 34 H BUN Creatinine 0.6 L Glucose 159 H POC Glucose 168 H Lactic Acid Calcium 7.5 L Phosphorus Magnesium Total Bilirubin 1.30 H Direct Bilirubin AST ALT Alkaline Phosphatase Total Protein 4.8 L Albumin 1.4 L Lipase Urine WBC (Auto) U Epithel Cells (Auto) Urine Creatinine Hepatitis C Antibody 07/25/19 07/25/19 07/26/19 11:34 23:30 04:25 WBC RBC Hgb Hct RDW Plt Count [place] % (Auto) [place] # Seg Neutrophils % Seg Neuts % (Manual) Lymphocytes % (Manual) Monocytes % (Manual) Eosinophils % (Manual) Seg Neutrophils # Seg Neutrophils # Man Lymphocytes # (Manual) Monocytes # (Manual) Eosinophils # (Manual) PT INR POC ABG pH ABG pH POC ABG pCO2 POC ABG pO2 ABG pO2 101.9 H ABG HCO3 32.0 H ABG O2 Saturation ABG Base Excess 6.5 H ABG Hemoglobin 9.9 L Oxyhemoglobin Sodium Potassium Chloride Carbon Dioxide BUN Creatinine Glucose POC Glucose 124 H 126 H Lactic Acid Calcium Phosphorus Magnesium Total Bilirubin Direct Bilirubin AST ALT Alkaline Phosphatase Total Protein Albumin Lipase Urine WBC (Auto) U Epithel Cells (Auto) Urine Creatinine Hepatitis C Antibody 07/26/19 07/26/19 07/26/19 05:00 05:00 05:38 WBC 12.3 H RBC 3.11 L Hgb 9.2 L Hct 28.2 L RDW 15.4 H Plt Count [place] % (Auto) 7.8 H [place] # 1.0 H Seg Neutrophils % 73.0 H Seg Neuts % (Manual) Lymphocytes % (Manual) Monocytes % (Manual) Eosinophils % (Manual) Seg Neutrophils # 8.9 H Seg Neutrophils # Man Lymphocytes # (Manual) Monocytes # (Manual) Eosinophils # (Manual) PT INR POC ABG pH ABG pH POC ABG pCO2 POC ABG pO2 ABG pO2 ABG HCO3 ABG O2 Saturation ABG Base Excess ABG Hemoglobin Oxyhemoglobin Sodium Potassium Chloride Carbon Dioxide 32 H BUN Creatinine Glucose 135 H POC Glucose 145 H Lactic Acid Calcium 7.9 L Phosphorus Magnesium Total Bilirubin Direct Bilirubin AST ALT Alkaline Phosphatase Total Protein Albumin Lipase Urine WBC (Auto) U Epithel Cells (Auto) Urine Creatinine Hepatitis C Antibody 07/26/19 07/26/19 07/26/19 11:16 17:55 23:26 WBC RBC Hgb Hct RDW Plt Count [place] % (Auto) [place] # Seg Neutrophils % Seg Neuts % (Manual) Lymphocytes % (Manual) Monocytes % (Manual) Eosinophils % (Manual) Seg Neutrophils # Seg Neutrophils # Man Lymphocytes # (Manual) Monocytes # (Manual) Eosinophils # (Manual) PT INR POC ABG pH ABG pH POC ABG pCO2 POC ABG pO2 ABG pO2 ABG HCO3 ABG O2 Saturation ABG Base Excess ABG Hemoglobin Oxyhemoglobin Sodium Potassium Chloride Carbon Dioxide BUN Creatinine Glucose POC Glucose 140 H 123 H 128 H Lactic Acid Calcium Phosphorus Magnesium Total Bilirubin Direct Bilirubin AST ALT Alkaline Phosphatase Total Protein Albumin Lipase Urine WBC (Auto) U Epithel Cells (Auto) Urine Creatinine Hepatitis C Antibody 07/27/19 07/27/19 07/27/19 05:29 05:40 05:40 WBC 13.2 H RBC 3.26 L Hgb 9.6 L Hct 29.5 L RDW Plt Count [place] % (Auto) [place] # 0.9 H Seg Neutrophils % 73.6 H Seg Neuts % (Manual) Lymphocytes % (Manual) Monocytes % (Manual) Eosinophils % (Manual) Seg Neutrophils # 9.7 H Seg Neutrophils # Man Lymphocytes # (Manual) Monocytes # (Manual) Eosinophils # (Manual) PT INR POC ABG pH ABG pH POC ABG pCO2 POC ABG pO2 ABG pO2 ABG HCO3 ABG O2 Saturation ABG Base Excess ABG Hemoglobin Oxyhemoglobin Sodium Potassium Chloride Carbon Dioxide BUN Creatinine 0.6 L Glucose 136 H POC Glucose 143 H Lactic Acid Calcium 8.2 L Phosphorus Magnesium Total Bilirubin Direct Bilirubin AST ALT Alkaline Phosphatase Total Protein Albumin Lipase Urine WBC (Auto) U Epithel Cells (Auto) Urine Creatinine Hepatitis C Antibody 07/27/19 07/27/19 07/27/19 06:29 12:32 17:24 WBC RBC Hgb Hct RDW Plt Count [place] % (Auto) [place] # Seg Neutrophils % Seg Neuts % (Manual) Lymphocytes % (Manual) Monocytes % (Manual) Eosinophils % (Manual) Seg Neutrophils # Seg Neutrophils # Man Lymphocytes # (Manual) Monocytes # (Manual) Eosinophils # (Manual) PT INR POC ABG pH 7.460 H ABG pH POC ABG pCO2 POC ABG pO2 60 L ABG pO2 ABG HCO3 ABG O2 Saturation ABG Base Excess ABG Hemoglobin Oxyhemoglobin Sodium Potassium Chloride Carbon Dioxide BUN Creatinine Glucose POC Glucose 139 H 126 H Lactic Acid Calcium Phosphorus Magnesium Total Bilirubin Direct Bilirubin AST ALT Alkaline Phosphatase Total Protein Albumin Lipase Urine WBC (Auto) U Epithel Cells (Auto) Urine Creatinine Hepatitis C Antibody 07/28/19 07/28/19 07/28/19 00:00 05:42 Unknown WBC RBC Hgb Hct RDW Plt Count [place] % (Auto) [place] # Seg Neutrophils % Seg Neuts % (Manual) Lymphocytes % (Manual) Monocytes % (Manual) Eosinophils % (Manual) Seg Neutrophils # Seg Neutrophils # Man Lymphocytes # (Manual) Monocytes # (Manual) Eosinophils # (Manual) PT INR POC ABG pH ABG pH 7.498 H POC ABG pCO2 POC ABG pO2 ABG pO2 59.8 L ABG HCO3 ABG O2 Saturation 94.1 L ABG Base Excess ABG Hemoglobin Oxyhemoglobin 91.5 L Sodium Potassium Chloride Carbon Dioxide BUN Creatinine Glucose POC Glucose 120 H 114 H Lactic Acid Calcium Phosphorus Magnesium Total Bilirubin Direct Bilirubin AST ALT Alkaline Phosphatase Total Protein Albumin Lipase Urine WBC (Auto) U Epithel Cells (Auto) Urine Creatinine Hepatitis C Antibody
--- NOTE | 2019-07-28 12:15 | Procedure Note ---
Date of procedure: 07/28/19 Pre-op diagnosis: Possible Pneumonia/Fever Post-op diagnosis: same Procedure: Flexible bronchoscopy with bronchial washings. Anesthesia: MAC Surgeon: DENG GONZALES Estimated blood loss: none Specimen disposition: to lab Disposition: ICU (Thin clear white secretions seen. Bronchial wash taken from left upper lobe to send for respiratory culture.)
[2019-07-28 12:16] LABS: Hematocrit 32.9 % (30.3-42.9); Hemoglobin 10.6 gm/dl (10.1-14.3); Mean Corpuscular HGB Conc 32 % (30-34); Mean Corpuscular Volume 91 fl (79-97); Platelet Count 520 K/mm3 (140-440); Red Blood Count 3.63 M/mm3 (3.65-5.03); Red Cell Distribution Width 14.5 % (13.2-15.2)
[2019-07-28 12:38] LABS: BUN/Creatinine Ratio 21; Blood Urea Nitrogen 17 mg/dL (7-17); Calcium 8.9 mg/dL (8.4-10.2); Hemolysis Index 5
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
--- NOTE | 2019-07-28 15:36 | Progress Note ---
Assessment and Plan /Acute hypoxic respiratory failure; requiring intubation >96h - ARDS Likely from severe sepsis Continue ventilatory support , nebulizers, supportive care Pulmonary critical following, wean as tolerated Requiring high FiO2 to maintain oxygen saturation - trending down wean off vent as tolerated, s/p bronch today - f/u BAL / Severe sepsis with Septic shock and organ failure/right foot infection/pyelonephritis/bacreremia Secondary to pyelonephritis and Escherichia coli bacteremia. weaned off pressor, Continue abx per ID, potential stop date: 07/30/19 for 2 weeks therapy. /Febrile illness, cont to spike fever, on abx, ordered DVT study - negative s/p bronch today- Follow up BAL cultures. - ordered CTAP with contrast to rule out perinephric abscess. Previous CT was without contrast. /E.coli bacteremia, likely source from pyelonephritis Continue to treat with empiric antibiotic per ID recommendation /Transaminitis - Could be from severe sepsis versus and underlying chronic hepatitis C - trending down LFTs, s/p HIDA scan showed normal study - hepatitis panel showed positive hepatitis C antibody - need further outpatient follow-up / Acute pyelonephritis To be improving. Decreased leukocytosis. She remains critically ill. / Cellulites of right foot, on abx /Acute renal failure due to ATN from severe sepsis Creatinine was 2.2 on admission monitor renal function, Cr now stable / Malnutrition Nutrition corrected by NG tube feedings. Nutrition following /Electrolyte imbalance Hyponatremia -manage with free water with tube feeding Hypokalemia - continue to replete as needed and continue to monitor BMP Hypomagnesemia - replete as needed, continue to follow The high probability of a clinically significant, sudden or life threatening deterioration of the [pulmonary, renal, infectious, metabolic] system(s) required my full and direct attention, intervention and personal management. The aggregate critical care time was [35] minutes. This time is in addition to time spent performing reported procedures but includes the following: [X] Data Review and interpretation [X] Patient assessment and monitoring of vital signs [x] Documentation [x] Medication orders and management Brief history The patient is a 44-year-old female with bipolar disorder presented to the emergency room with right foot pain, abdominal pain and fevers. She previously presented to the emergency room on 06/28/2019 with right foot with redness and pain following a possible spider bite. She was given a prescription for oral Augmentin and was discharged home. Patient stated that she was compliant with Augmentin and also was soaking her right foot in Epsom salts. About 2-3 days prior to admission, she started developing fevers, nausea as well as worsening abdominal pain. She has presented to the emergency room and was hospitalized. She was noted to be septic,Started on empiric antibiotics. She decompensated on the floor and required intubation and transferred to ICU for further management on 07/17/2019. Also required pressors for septic shock, blood culture growing Escherichia coli bacteremia. Patient is now on Lopressor, still intubated with 40% FiO2 and high PEEP. Plan to continue wean off from vent as tolerated and complete her antibiotic regimen for bacteremia. Radiological data: CT abdomen/pelvis: 1. Mild nonspecific left-sided perinephric stranding in this patient with punctate bilateral nonobstructive nephrolithiasis. No asymmetric hydronephrosis or ureteral stone disease. 2. Complex cyst versus mass in the left ovary. Recommend nonemergent follow-up pelvic ultrasound. 3. Mild periportal edema could be related to aggressive hydration therapy. 4. Other incidental findings as outlined above on this limited noncontrast exam with mild motion artifact. Of note, there is a 5 mm nodule in the right middle lobe. Please see below recommendations. Abdomen ultrasound: 1. No gallstones, but the gallbladder wall is thickened and edematous. 2. Small bilateral pleural effusions. Hospitalist Physical General appearance: Present: no acute distress, well-nourished, other (intubated on ventilatory support and sedated) - EENT Eyes: Present: PERRL, EOM intact - Neck Neck: Present: supple, normal ROM - Respiratory Respiratory effort: labored Respiratory: bilateral: diminished, rhonchi, negative: rales, wheezing - Cardiovascular Rhythm: regular Heart Sounds: Present: S1 & S2 - Extremities Extremities: no ischemia, abnormal (cellulites lower extremity) Extremity abnormal: edema - Abdominal General gastrointestinal: soft, non-tender, non-distended, normal bowel sounds - Integumentary Integumentary: Present: clear, warm - Psychiatric Psychiatric: other (intubated on vent) - Neurologic Neurologic: other (intubated on vent) Subjective Date of service: 07/28/19 Principal diagnosis: Acute respiratory failure Interval history: Patient seen and examined Remain intubated, s/p bronch today off pressor support, Tolerating tube feeding Updated family/significant other at bedside Objective - Constitutional Vitals: Vital Signs - 12hr 07/28/19 07/28/19 07/28/19 04:00 04:30 04:44 Temperature Pulse Rate 102 H 104 H 106 H Pulse Rate [ 101 H From Monitor] Respiratory 26 H 24 Rate Blood Pressure 109/64 103/62 103/62 O2 Sat by Pulse 96 96 97 Oximetry 07/28/19 07/28/19 07/28/19 05:00 05:30 06:00 Temperature Pulse Rate 109 H 110 H 115 H Pulse Rate [ From Monitor] Respiratory 20 26 H 26 H Rate Blood Pressure 112/65 96/61 120/67 O2 Sat by Pulse 96 96 98 Oximetry 07/28/19 07/28/19 07/28/19 06:30 07:00 07:30 Temperature Pulse Rate 119 H 115 H 118 H Pulse Rate [ From Monitor] Respiratory 25 H 20 25 H Rate Blood Pressure 107/63 103/55 101/56 O2 Sat by Pulse 100 98 97 Oximetry 07/28/19 07/28/19 07/28/19 08:00 08:07 08:30 Temperature 102.3 F H Pulse Rate 117 H 116 H 118 H Pulse Rate [ 117 H From Monitor] Respiratory 20 26 H Rate Blood Pressure 101/56 101/56 106/55 O2 Sat by Pulse 97 97 97 Oximetry 07/28/19 07/28/19 07/28/19 09:00 09:30 10:00 Temperature Pulse Rate 117 H 113 H 113 H Pulse Rate [ From Monitor] Respiratory 27 H 21 22 Rate Blood Pressure 97/61 104/60 110/62 O2 Sat by Pulse 98 100 100 Oximetry 07/28/19 07/28/19 07/28/19 10:28 10:30 10:55 Temperature Pulse Rate 118 H 114 H Pulse Rate [ From Monitor] Respiratory 24 Rate Blood Pressure 106/55 99/65 O2 Sat by Pulse 97 99 100 Oximetry 07/28/19 07/28/19 07/28/19 11:00 11:11 11:22 Temperature Pulse Rate 126 H Pulse Rate [ From Monitor] Respiratory 28 H 27 H 26 H Rate Blood Pressure 149/72 162/71 O2 Sat by Pulse 100 Oximetry 07/28/19 07/28/19 07/28/19 11:31 12:00 12:30 Temperature 103.8 F H Pulse Rate 141 H 137 H 136 H Pulse Rate [ 124 H From Monitor] Respiratory 34 H 29 H 26 H Rate Blood Pressure 138/90 128/74 117/74 O2 Sat by Pulse 89 93 94 Oximetry 07/28/19 07/28/19 07/28/19 13:00 13:30 14:00 Temperature Pulse Rate 124 H 123 H 115 H Pulse Rate [ From Monitor] Respiratory 24 24 20 Rate Blood Pressure 102/68 111/61 97/57 O2 Sat by Pulse 97 97 97 Oximetry 07/28/19 14:53 Temperature Pulse Rate 105 H Pulse Rate [ From Monitor] Respiratory Rate Blood Pressure 100/59 O2 Sat by Pulse 98 Oximetry - Labs CBC & Chem 7: 07/28/19 11:50 07/28/19 11:50 Labs: Abnormal lab results 07/27/19 07/28/19 07/28/19 Range/Units 17:24 00:00 05:42 WBC (4.5-11.0) K/mm3 RBC (3.65-5.03) M/mm3 Plt Count (140-440) K/mm3 ABG pH (7.350-7.450) pH Units ABG pO2 (80.0-90.0) mm Hg ABG O2 Saturation (95.0-99.0) % Oxyhemoglobin (95.0-99.0) % Sodium (137-145) mmol/L Potassium (3.6-5.0) mmol/L Chloride (98-107) mmol/L Glucose (65-100) mg/dL POC Glucose 126 H 120 H 114 H (70-105) 07/28/19 07/28/19 07/28/19 Range/Units 11:37 11:50 11:50 WBC 22.7 H (4.5-11.0) K/mm3 RBC 3.63 L (3.65-5.03) M/mm3 Plt Count 520 H (140-440) K/mm3 ABG pH (7.350-7.450) pH Units ABG pO2 (80.0-90.0) mm Hg ABG O2 Saturation (95.0-99.0) % Oxyhemoglobin (95.0-99.0) % Sodium 134 L (137-145) mmol/L Potassium 5.6 H D (3.6-5.0) mmol/L Chloride 96.9 L (98-107) mmol/L Glucose 121 H (65-100) mg/dL POC Glucose 111 H (70-105) 07/28/19 Range/Units Unknown WBC (4.5-11.0) K/mm3 RBC (3.65-5.03) M/mm3 Plt Count (140-440) K/mm3 ABG pH 7.498 H (7.350-7.450) pH Units ABG pO2 59.8 L (80.0-90.0) mm Hg ABG O2 Saturation 94.1 L (95.0-99.0) % Oxyhemoglobin 91.5 L (95.0-99.0) % Sodium (137-145) mmol/L Potassium (3.6-5.0) mmol/L Chloride (98-107) mmol/L Glucose (65-100) mg/dL POC Glucose (70-105)
[2019-07-28] MEDS ORDERED: KIONEX PO PRN (22:14)
[2019-07-29] MEDS: fentaNYL DRIP Premix 2,000 MCG/100 ML BAG IV SCH ×3 (00:19→18:34)
[2019-07-29] MEDS: TYLENOL PO PRN ×2 (04:24→16:31)
[2019-07-29 04:25] LABS: ABG Base Excess 4.6 mmol/L (-2.0-3.0); ABG Methemoglobin 0.5 % (0.0-1.5); ABG Oxygen Saturation 97.3 % (95.0-99.0); ABG PCO2 42.4 mm Hg; ABG PH 7.453 pH Units (7.350-7.450); ABG PO2 89.9 mm Hg (80.0-90.0)
[2019-07-29 06:34] LABS: Basophils # (Auto) 0.1 K/mm3 (0.0-0.1); Basophils % (Auto) 1.1 % (0.0-1.8); Eosinophils # (Auto) 0.5 K/mm3 (0.0-0.4); Eosinophils % (Auto) 3.7 % (0.0-4.3); Hematocrit 26.7 % (30.3-42.9); Hemoglobin 9.1 gm/dl (10.1-14.3); Lymphocytes # (Auto) 2.8 K/mm3 (1.2-5.4); Lymphocytes % (Auto) 22.8 % (13.4-35.0); Mean Corpuscular HGB Conc 34 % (30-34); Mean Corpuscular Volume 89 fl (79-97); Monocytes # (Auto) 1.4 K/mm3 (0.0-0.8); Platelet Count 475 K/mm3 (140-440); Red Blood Count 3.02 M/mm3 (3.65-5.03); Red Cell Distribution Width 14.2 % (13.2-15.2)
[2019-07-29 06:56] LABS: BUN/Creatinine Ratio 27; Blood Urea Nitrogen 19 mg/dL (7-17); Calcium 8.7 mg/dL (8.4-10.2); Hemolysis Index 0
--- NOTE | 2019-07-29 09:06 | Progress Note ---
Assessment and Plan - Patient Problems (1) Acute renal failure Current Visit: Yes Status: Acute Plan to address problem: Kidney function has improved. Follow-up electrolytes and renal function. pt with excellent urine output. (2) Fluid overload Current Visit: Yes Status: Acute Plan to address problem: CXR showed improving b/l pulmonary infiltrates. given low BP will d/c bumex. Follow up volume status, electrolytes and renal function (3) Acute pyelonephritis Current Visit: Yes Status: Acute Plan to address problem: Continue antibiotics. (4) Hypokalemia Current Visit: Yes Status: Acute Plan to address problem: K normalized (5) Elevated LFTs Current Visit: Yes Status: Acute Plan to address problem: Ischemic Hepatitis. Follow-up liver function tests (6) Acute respiratory failure Current Visit: Yes Status: Acute Plan to address problem: Continue ventilator management as per ICU team (7) Cellulitis of right foot Current Visit: Yes Status: Resolved Plan to address problem: Continue antibiotics Subjective Date of service: 07/29/19 Principal diagnosis: Acute respiratory failure Interval history: Pt remains intubated, sedated Objective - Vital Signs Vital signs: Vital Signs - 12hr 07/28/19 07/28/19 07/28/19 21:30 22:00 22:30 Temperature Pulse Rate 98 H 99 H 104 H Respiratory 26 H 26 H 15 Rate Blood Pressure 88/48 93/50 95/62 O2 Sat by Pulse 98 97 100 Oximetry 07/28/19 07/28/19 07/28/19 23:00 23:27 23:30 Temperature Pulse Rate Respiratory Rate Blood Pressure 95/57 95/58 95/58 O2 Sat by Pulse 98 99 99 Oximetry 07/28/19 07/28/19 07/29/19 23:31 23:55 00:00 Temperature 100.1 F H Pulse Rate 104 H Respiratory 22 Rate Blood Pressure 95/58 95/55 O2 Sat by Pulse 99 100 Oximetry 07/29/19 07/29/19 07/29/19 00:16 00:30 01:00 Temperature Pulse Rate 106 H 107 H 105 H Respiratory 18 25 H Rate Blood Pressure 98/61 95/58 96/58 O2 Sat by Pulse 100 99 99 Oximetry 07/29/19 07/29/19 07/29/19 01:30 02:00 02:30 Temperature Pulse Rate 108 H 105 H 108 H Respiratory 26 H 26 H 15 Rate Blood Pressure 94/56 91/57 94/54 O2 Sat by Pulse 99 99 99 Oximetry 07/29/19 07/29/19 07/29/19 03:00 03:30 03:42 Temperature Pulse Rate 106 H 107 H 106 H Respiratory 23 16 Rate Blood Pressure 97/61 93/60 98/61 O2 Sat by Pulse 100 100 100 Oximetry 07/29/19 07/29/19 07/29/19 04:00 04:30 05:00 Temperature 102.7 F H Pulse Rate 108 H 113 H 110 H Respiratory 25 H 15 12 Rate Blood Pressure 93/57 101/62 95/50 O2 Sat by Pulse 99 100 99 Oximetry 07/29/19 07/29/19 07/29/19 05:30 06:00 06:30 Temperature Pulse Rate 100 H 94 H 96 H Respiratory 20 26 H 12 Rate Blood Pressure 91/51 97/53 96/57 O2 Sat by Pulse 99 99 99 Oximetry 07/29/19 07/29/19 07/29/19 07:00 07:30 08:00 Temperature 100.4 F H Pulse Rate 98 H 103 H 108 H Respiratory 15 13 20 Rate Blood Pressure 95/59 102/66 115/72 O2 Sat by Pulse 99 100 97 Oximetry 07/29/19 07/29/19 07/29/19 08:22 08:30 09:00 Temperature 100.4 F H Pulse Rate 97 H 96 H Respiratory 26 H 25 H Rate Blood Pressure 93/57 95/51 O2 Sat by Pulse 98 99 Oximetry - General Appearance General appearance: well-developed, appears stated age, sedated on ventilator, intubated EENT: ATNC, PERRL, mucous membranes moist Neck: no JVD Respiratory: Present: Decreased Breath Sounds Cardiology: regular, S1S2 Gastrointestinal: normoactive bowel sounds Integumentary: no rash, other (no edema ) Neurologic: other (intubated, sedated ) - Lab 07/29/19 06:00 07/29/19 06:00 Most recent lab results ABG pH 7.453 pH Units (7.350-7.450) H 07/29/19 03:50 ABG pCO2 42.4 mm Hg 07/29/19 03:50 ABG pO2 89.9 mm Hg (80.0-90.0) 07/29/19 03:50 ABG HCO3 29.0 mmol/L (20.0-26.0) H 07/29/19 03:50 ABG O2 Saturation 97.3 % (95.0-99.0) 07/29/19 03:50 Calcium 8.7 mg/dL (8.4-10.2) 07/29/19 06:00 Phosphorus 4.50 mg/dL (2.5-4.5) D 07/28/19 11:50 Magnesium 2.00 mg/dL (1.7-2.3) 07/28/19 11:50 76.6 mg/dL (0.1-20.0) H 07/16/19 14:30 39 mmol/L 07/16/19 14:30 Medications & Allergies - Medications Allergies/Adverse Reactions: Allergies latex Allergy (Verified 06/28/19 17:11) Anaphylaxis tramadol [From Ultram] Allergy (Verified 06/28/19 17:10) Unknown haloperidol [From Haldol] Adverse Reaction (Verified 07/17/19 05:55) Shortness of Breath agitation/combative ketorolac [From Toradol] Adverse Reaction (Verified 06/28/19 17:10) Seizure prochlorperazine [From Compazine] Adverse Reaction (Verified 06/28/19 17:11) Unknown Home Medications: Home Medications Medication Instructions Recorded Confirmed Last Taken Type No Known Home Medications [No 07/16/19 07/16/19 Unknown History Reported Home Medications] Active Medications: Generic Name Dose Route Start Last Admin Trade Name Freq PRN Reason Stop Dose Admin Acetaminophen 650 mg 07/16/19 05:36 07/29/19 04:24 Tylenol PO 650 mg Q4H PRN Administration Pain MILD(1-3)/Fever >100.5/WHALEN Albuterol 2.5 mg 07/16/19 22:48 07/16/19 23:01 Proventil IH 2.5 mg Q4HRT PRN Administration Shortness Of Breath Lipase/Protease/Amylase 1 each 07/18/19 14:34 Quique Thomas 10,500 Unit FEEDTUBE PRN PRN For Clogged Feeding Tube Dextrose 50 ml 07/17/19 03:17 07/17/19 05:30 D50w (25gm) Syringe IV 50 ml PRN PRN Administration Hypoglycemia Enoxaparin Sodium 40 mg 07/20/19 10:00 07/28/19 11:49 Lovenox SUB-Q 40 mg QDAY@1000 KASIE Administration Famotidine 20 mg 07/20/19 10:00 07/28/19 22:28 Pepcid PO 20 mg BID KASIE Administration Fentanyl 50 mcg 07/17/19 03:18 07/17/19 04:53 Sublimaze IV 50 mcg Q10MIN PRN Administration ANALGESIA Hydrochlorothiazide 25 mg 07/23/19 10:00 07/28/19 11:50 Hctz PO 25 mg QDAY [facility] Administration Hydromorphone HCl 0.25 mg 07/16/19 05:36 07/21/19 01:07 Dilaudid IV 0.25 mg Q3H PRN Administration Pain, Moderate (4-6) Hydrophilic Ointment 1 applic 07/17/19 03:18 Vaseline Lip Therapy TP Q2HR PRN Dry Lips Midazolam HCl 100 mg/ Sodium 100 mls @ 2 mls/hr 07/17/19 04:00 07/28/19 11:42 Chloride IV 2 mg/hr TITR KASIE 2 mls/hr Titration Protocol 2 MG/HR Fentanyl Citrate 2,000 mcg in 100 mls @ 3.4 mls/hr 07/17/19 04:00 07/29/19 0 7:47 Fentanyl Drip Premix IV 3 mcg/kg/hr TITR KASIE 10.2 mls/hr Titration Protocol 1 MCG/KG/HR Ceftriaxone Sodium 2 gm in 100 mls @ 200 mls/hr 07/20/19 13:00 07/28/19 11:51 Rocephin/Ns 2 Gm/100 Ml IV 200 mls/hr Q24HR KASIE Administration Protocol Midazolam HCl 2 mg 07/17/19 03:18 07/20/19 23:32 Versed IV 2 mg Q10MIN PRN Administration Sedation Multi-Ingred Cream/Lotion/Oil/Oint 1 applic 07/17/19 03:18 Artificial Tears Ophth Oint OU Q4HR PRN Dry Eye(s) Nicotine 14 mg 07/16/19 10:00 07/28/19 11:51 Habitrol TD 14 mg QDAY [facility] Administration Ondansetron HCl 4 mg 07/16/19 05:36 07/16/19 21:16 Zofran IV 4 mg Q8H PRN Administration Nausea And Vomiting Oxycodone/Acetaminophen 1 tab 07/16/19 05:36 07/16/19 12:33 Percocet 5/325 PO 1 tab Q6H PRN Administration Pain, Moderate (4-6) Quetiapine Fumarate 50 mg 07/28/19 11:00 07/28/19 22:28 Seroquel PO 50 mg BID KASIE Administration Simple Syrup 15 ml 07/18/19 14:34 Simple Syrup FEEDTUBE PRN PRN Hypoglycemia Simple Syrup 30 ml 07/18/19 14:34 Simple Syrup FEEDTUBE PRN PRN Hypoglycemia Sodium Bicarbonate 325 mg 07/18/19 14:34 Sodium Bicarbonate FEEDTUBE PRN PRN For Clogged Feeding Tube Sodium Chloride 10 ml 07/16/19 10:00 07/28/19 22:31 Sodium Chloride Flush Syringe 10 Ml IV 10 ml BID KASIE Administration Sodium Chloride 10 ml 07/16/19 05:36 Sodium Chloride Flush Syringe 10 Ml IV PRN PRN LINE FLUSH Sodium Polystyrene Sulfonate 15 gm 07/28/19 22:14 07/28/19 22:35 Kionex PO 15 gm Q6H PRN Administration Hyperkalemia
[2019-07-29] MEDS: HABITROL TD SCH (09:46)
[2019-07-29] MEDS: PEPCID PO SCH ×2 (09:46→22:39)
[2019-07-29] MEDS: HCTZ PO SCH (09:46)
[2019-07-29] MEDS: ROCEPHIN/NS 2 GM/100 ML 2 GM/100 ML BAG IV SCH (09:47)
[2019-07-29] MEDS: LOVENOX SUB-Q SCH (09:47)
[2019-07-29] MEDS: SODIUM CHLORIDE FLUSH SYRINGE 10 ML IV SCH ×2 (10:12→22:39)
--- NOTE | 2019-07-29 12:02 | Progress Note ---
Assessment and Plan 44 y/o female with abdominal pain found to have right sided mass vs cysts with acute vs chronic vs acute chronic renal failure, UTI and possible cellulitis of lower ext 1. Respiratory- Down to 8 of PEEP. Still spiking temps. Follow up bronch cultures. 2. ID-patient with persistent fever, despite negative HIDA scan. Dopplers were negative, done yesterday. ID ordered CT abdomen Pelvis. I have elected to do a dasilva scan today. She does have a left lower lobe effusion. May need to consider thoracentesis but will wait and see what CT shows. 3. GI-CT later today. 4. PSYCH-Continue Seroquel at 50 BID. Had to increase sedation secondary to agitation. Will not wean today given the need to have so many scans. 5. PT consult with special instructions that even if the dopplers are positive, she can still be mobilized. 6. Overall prognosis is guarded. Will continue to follow CCT 31 minutes. Subjective Date of service: 07/29/19 Principal diagnosis: Acute respiratory failure Interval history: Bronched yesterday. No organisms seen on Gram stain. Still on sedation. Still spiking temps. Objective Vital Signs - 12hr 07/29/19 07/29/19 07/29/19 00:00 00:16 00:30 Temperature Pulse Rate 104 H 106 H 107 H Respiratory 22 18 Rate Blood Pressure 95/55 98/61 95/58 O2 Sat by Pulse 100 100 99 Oximetry 07/29/19 07/29/19 07/29/19 01:00 01:30 02:00 Temperature Pulse Rate 105 H 108 H 105 H Respiratory 25 H 26 H 26 H Rate Blood Pressure 96/58 94/56 91/57 O2 Sat by Pulse 99 99 99 Oximetry 07/29/19 07/29/19 07/29/19 02:30 03:00 03:30 Temperature Pulse Rate 108 H 106 H 107 H Respiratory 15 23 16 Rate Blood Pressure 94/54 97/61 93/60 O2 Sat by Pulse 99 100 100 Oximetry 07/29/19 07/29/19 07/29/19 03:42 04:00 04:30 Temperature 102.7 F H Pulse Rate 106 H 108 H 113 H Respiratory 25 H 15 Rate Blood Pressure 98/61 93/57 101/62 O2 Sat by Pulse 100 99 100 Oximetry 07/29/19 07/29/19 07/29/19 05:00 05:30 06:00 Temperature Pulse Rate 110 H 100 H 94 H Respiratory 12 20 26 H Rate Blood Pressure 95/50 91/51 97/53 O2 Sat by Pulse 99 99 99 Oximetry 07/29/19 07/29/19 07/29/19 06:30 07:00 07:30 Temperature Pulse Rate 96 H 98 H 103 H Respiratory 12 15 13 Rate Blood Pressure 96/57 95/59 102/66 O2 Sat by Pulse 99 99 100 Oximetry 07/29/19 07/29/19 07/29/19 08:00 08:22 08:30 Temperature 100.4 F H 100.4 F H Pulse Rate 108 H 97 H Respiratory 20 26 H Rate Blood Pressure 115/72 93/57 O2 Sat by Pulse 97 98 Oximetry 07/29/19 07/29/19 07/29/19 09:00 09:30 10:00 Temperature Pulse Rate 96 H 94 H 98 H Respiratory 25 H 26 H 18 Rate Blood Pressure 95/51 89/59 97/61 O2 Sat by Pulse 99 100 100 Oximetry 07/29/19 07/29/19 07/29/19 10:30 11:00 11:38 Temperature Pulse Rate 96 H 94 H 93 H Respiratory 27 H 20 Rate Blood Pressure 92/60 95/60 100/61 O2 Sat by Pulse 100 100 100 Oximetry Constitutional: other (sedated, critically ill on ventilator. Opens eyes to tactile stimule) Eyes: non-icteric ENT: other (orally intubated and sedated) Neck: supple Effort: normal Ascultation: Bilateral: rales, other (coarse equal BS bilaterally) Percussion: Bilateral: not dull Cardiovascular: regular rate and rhythm (sinus tach) Gastrointestinal: normoactive bowel sounds, soft, non-tender, non-distended Integumentary: normal Extremities: no cyanosis, no edema, pink and warm Neurologic: non-focal exam, other (sedated opens eyes to tactile stimuli) Psychiatric: other (unable to obtain) CBC and BMP: 07/29/19 06:00 07/29/19 06:00 ABG, PT/INR, D-dimer: ABG POC ABG pH 7.460 (7.35-7.45) H 07/27/19 06:29 ABG pH 7.453 pH Units (7.350-7.450) H 07/29/19 03:50 POC ABG pCO2 42.4 (35-45) 07/27/19 06:29 ABG pCO2 42.4 mm Hg 07/29/19 03:50 POC ABG pO2 60 (80-105) L 07/27/19 06:29 ABG pO2 89.9 mm Hg (80.0-90.0) 07/29/19 03:50 POC ABG HCO3 30.1 (22-26 mml/L) 07/27/19 06:29 POC ABG Total CO2 31 (23-27mmol/L) 07/27/19 06:29 POC ABG O2 Sat 92 07/27/19 06:29 ABG O2 Saturation 97.3 % (95.0-99.0) 07/29/19 03:50 PT/INR, D-dimer PT 16.3 Sec. (12.2-14.9) H 07/16/19 05:47 INR 1.35 (0.87-1.13) H 07/16/19 05:47 Abnormal lab findings: Abnormal Labs 07/16/19 07/16/19 07/16/19 02:01 02:01 02:01 WBC 11.7 H RBC Hgb Hct RDW Plt Count 101 L [place] % (Auto) [place] # Eos # Seg Neutrophils % Seg Neuts % (Manual) 92.0 H Lymphocytes % (Manual) 5.0 L Monocytes % (Manual) Eosinophils % (Manual) Seg Neutrophils # Seg Neutrophils # Man 10.8 H Lymphocytes # (Manual) 0.6 L Monocytes # (Manual) Eosinophils # (Manual) PT 15.2 H INR 1.23 H POC ABG pH ABG pH POC ABG pCO2 POC ABG pO2 ABG pO2 ABG HCO3 ABG O2 Saturation ABG Base Excess ABG Hemoglobin Oxyhemoglobin Sodium Potassium Chloride Carbon Dioxide 18 L BUN 46 H Creatinine 2.2 H Glucose 116 H POC Glucose Lactic Acid Calcium Phosphorus Magnesium Total Bilirubin Direct Bilirubin AST 63 H ALT 125 H Alkaline Phosphatase Total Protein 6.2 L Albumin 2.8 L Lipase Urine WBC (Auto) U Epithel Cells (Auto) Urine Creatinine Hepatitis C Antibody 07/16/19 07/16/19 07/16/19 02:16 02:43 04:07 WBC RBC Hgb Hct RDW Plt Count [place] % (Auto) [place] # Eos # Seg Neutrophils % Seg Neuts % (Manual) Lymphocytes % (Manual) Monocytes % (Manual) Eosinophils % (Manual) Seg Neutrophils # Seg Neutrophils # Man Lymphocytes # (Manual) Monocytes # (Manual) Eosinophils # (Manual) PT INR POC ABG pH ABG pH POC ABG pCO2 POC ABG pO2 ABG pO2 ABG HCO3 ABG O2 Saturation ABG Base Excess ABG Hemoglobin Oxyhemoglobin Sodium Potassium Chloride Carbon Dioxide BUN Creatinine Glucose POC Glucose Lactic Acid 2.10 H* 2.30 H* Calcium Phosphorus Magnesium Total Bilirubin Direct Bilirubin AST ALT Alkaline Phosphatase Total Protein Albumin Lipase 6 L Urine WBC (Auto) U Epithel Cells (Auto) Urine Creatinine Hepatitis C Antibody 07/16/19 07/16/19 07/16/19 05:47 05:59 14:30 WBC RBC Hgb Hct RDW Plt Count [place] % (Auto) [place] # Eos # Seg Neutrophils % Seg Neuts % (Manual) Lymphocytes % (Manual) Monocytes % (Manual) Eosinophils % (Manual) Seg Neutrophils # Seg Neutrophils # Man Lymphocytes # (Manual) Monocytes # (Manual) Eosinophils # (Manual) PT 16.3 H INR 1.35 H POC ABG pH ABG pH POC ABG pCO2 POC ABG pO2 ABG pO2 ABG HCO3 ABG O2 Saturation ABG Base Excess ABG Hemoglobin Oxyhemoglobin Sodium Potassium Chloride Carbon Dioxide BUN Creatinine Glucose POC Glucose Lactic Acid Calcium Phosphorus Magnesium Total Bilirubin Direct Bilirubin AST ALT Alkaline Phosphatase Total Protein Albumin Lipase Urine WBC (Auto) > 182.0 H U Epithel Cells (Auto) 21.0 H Urine Creatinine 76.6 H Hepatitis C Antibody 07/16/19 07/17/19 07/17/19 23:27 00:03 00:03 WBC RBC Hgb Hct RDW Plt Count [place] % (Auto) [place] # Eos # Seg Neutrophils % Seg Neuts % (Manual) Lymphocytes % (Manual) Monocytes % (Manual) Eosinophils % (Manual) Seg Neutrophils # Seg Neutrophils # Man Lymphocytes # (Manual) Monocytes # (Manual) Eosinophils # (Manual) PT INR POC ABG pH 7.093 L ABG pH POC ABG pCO2 32.8 L POC ABG pO2 66 L ABG pO2 ABG HCO3 ABG O2 Saturation ABG Base Excess ABG Hemoglobin Oxyhemoglobin Sodium 148 H D Potassium Chloride 120.5 H Carbon Dioxide 14 L BUN 35 H Creatinine 1.5 H Glucose 42 L POC Glucose Lactic Acid 2.90 H* Calcium 5.7 L* D Phosphorus Magnesium Total Bilirubin Direct Bilirubin AST ALT Alkaline Phosphatase Total Protein Albumin Lipase Urine WBC (Auto) U Epithel Cells (Auto) Urine Creatinine Hepatitis C Antibody 07/17/19 07/17/19 07/17/19 03:01 03:29 03:40 WBC 13.2 H RBC Hgb Hct RDW Plt Count 116 L [place] % (Auto) [place] # Eos # Seg Neutrophils % Seg Neuts % (Manual) Lymphocytes % (Manual) 9.0 L Monocytes % (Manual) Eosinophils % (Manual) 24.0 H Seg Neutrophils # Seg Neutrophils # Man 8.6 H Lymphocytes # (Manual) Monocytes # (Manual) Eosinophils # (Manual) 3.2 H PT INR POC ABG pH 6.981 L ABG pH POC ABG pCO2 55.6 H POC ABG pO2 ABG pO2 ABG HCO3 ABG O2 Saturation ABG Base Excess ABG Hemoglobin Oxyhemoglobin Sodium Potassium Chloride Carbon Dioxide BUN Creatinine Glucose POC Glucose 64 L Lactic Acid Calcium Phosphorus Magnesium Total Bilirubin Direct Bilirubin AST ALT Alkaline Phosphatase Total Protein Albumin Lipase Urine WBC (Auto) U Epithel Cells (Auto) Urine Creatinine Hepatitis C Antibody 07/17/19 07/17/19 07/17/19 03:40 03:40 04:08 WBC RBC Hgb Hct RDW Plt Count [place] % (Auto) [place] # Eos # Seg Neutrophils % Seg Neuts % (Manual) Lymphocytes % (Manual) Monocytes % (Manual) Eosinophils % (Manual) Seg Neutrophils # Seg Neutrophils # Man Lymphocytes # (Manual) Monocytes # (Manual) Eosinophils # (Manual) PT INR POC ABG pH 7.056 L ABG pH POC ABG pCO2 POC ABG pO2 63 L ABG pO2 ABG HCO3 ABG O2 Saturation ABG Base Excess ABG Hemoglobin Oxyhemoglobin Sodium 147 H Potassium Chloride 120.2 H Carbon Dioxide 14 L BUN 36 H Creatinine 1.6 H Glucose POC Glucose Lactic Acid 3.20 H* Calcium 6.0 L Phosphorus Magnesium Total Bilirubin Direct Bilirubin AST ALT Alkaline Phosphatase Total Protein Albumin Lipase Urine WBC (Auto) U Epithel Cells (Auto) Urine Creatinine Hepatitis C Antibody 07/17/19 07/17/19 07/17/19 05:33 05:45 06:51 WBC RBC Hgb Hct RDW Plt Count [place] % (Auto) [place] # Eos # Seg Neutrophils % Seg Neuts % (Manual) Lymphocytes % (Manual) Monocytes % (Manual) Eosinophils % (Manual) Seg Neutrophils # Seg Neutrophils # Man Lymphocytes # (Manual) Monocytes # (Manual) Eosinophils # (Manual) PT INR POC ABG pH 7.061 L ABG pH POC ABG pCO2 49.0 H POC ABG pO2 ABG pO2 ABG HCO3 ABG O2 Saturation ABG Base Excess ABG Hemoglobin Oxyhemoglobin Sodium Potassium Chloride Carbon Dioxide BUN Creatinine Glucose POC Glucose 64 L 239 H Lactic Acid Calcium Phosphorus Magnesium Total Bilirubin Direct Bilirubin AST ALT Alkaline Phosphatase Total Protein Albumin Lipase Urine WBC (Auto) U Epithel Cells (Auto) Urine Creatinine Hepatitis C Antibody 07/17/19 07/17/19 07/17/19 10:57 12:56 18:11 WBC RBC Hgb Hct RDW Plt Count [place] % (Auto) [place] # Eos # Seg Neutrophils % Seg Neuts % (Manual) Lymphocytes % (Manual) Monocytes % (Manual) Eosinophils % (Manual) Seg Neutrophils # Seg Neutrophils # Man Lymphocytes # (Manual) Monocytes # (Manual) Eosinophils # (Manual) PT INR POC ABG pH ABG pH 7.192 L* POC ABG pCO2 POC ABG pO2 ABG pO2 67.5 L ABG HCO3 16.3 L ABG O2 Saturation 92.6 L ABG Base Excess -11.4 L ABG Hemoglobin Oxyhemoglobin 91.1 L Sodium Potassium Chloride Carbon Dioxide BUN Creatinine Glucose POC Glucose 107 H 122 H Lactic Acid Calcium Phosphorus Magnesium Total Bilirubin Direct Bilirubin AST ALT Alkaline Phosphatase Total Protein Albumin Lipase Urine WBC (Auto) U Epithel Cells (Auto) Urine Creatinine Hepatitis C Antibody 07/17/19 07/17/19 07/18/19 23:34 Unknown 04:00 WBC RBC Hgb Hct RDW Plt Count 85 L [place] % (Auto) [place] # Eos # Seg Neutrophils % Seg Neuts % (Manual) 82.0 H Lymphocytes % (Manual) 2.0 L Monocytes % (Manual) 12.0 H Eosinophils % (Manual) Seg Neutrophils # Seg Neutrophils # Man Lymphocytes # (Manual) 0.2 L Monocytes # (Manual) 1.1 H Eosinophils # (Manual) PT INR POC ABG pH ABG pH 7.237 L POC ABG pCO2 POC ABG pO2 ABG pO2 142.4 H ABG HCO3 17.0 L ABG O2 Saturation ABG Base Excess -9.8 L ABG Hemoglobin Oxyhemoglobin Sodium Potassium Chloride Carbon Dioxide BUN Creatinine Glucose POC Glucose 136 H Lactic Acid Calcium Phosphorus Magnesium Total Bilirubin Direct Bilirubin AST ALT Alkaline Phosphatase Total Protein Albumin Lipase Urine WBC (Auto) U Epithel Cells (Auto) Urine Creatinine Hepatitis C Antibody 07/18/19 07/18/19 07/18/19 04:00 05:31 05:51 WBC RBC Hgb Hct RDW Plt Count [place] % (Auto) [place] # Eos # Seg Neutrophils % Seg Neuts % (Manual) Lymphocytes % (Manual) Monocytes % (Manual) Eosinophils % (Manual) Seg Neutrophils # Seg Neutrophils # Man Lymphocytes # (Manual) Monocytes # (Manual) Eosinophils # (Manual) PT INR POC ABG pH 7.239 L ABG pH POC ABG pCO2 56.9 H POC ABG pO2 ABG pO2 ABG HCO3 ABG O2 Saturation ABG Base Excess ABG Hemoglobin Oxyhemoglobin Sodium 151 H Potassium 3.2 L D Chloride 114.7 H Carbon Dioxide BUN 42 H Creatinine 2.1 H Glucose 130 H POC Glucose 135 H Lactic Acid Calcium 6.0 L Phosphorus Magnesium Total Bilirubin 2.10 H Direct Bilirubin AST 59 H ALT 62 H Alkaline Phosphatase Total Protein 4.8 L D Albumin 2.0 L Lipase Urine WBC (Auto) U Epithel Cells (Auto) Urine Creatinine Hepatitis C Antibody 07/18/19 07/18/19 07/18/19 12:05 18:30 23:40 WBC RBC Hgb Hct RDW Plt Count [place] % (Auto) [place] # Eos # Seg Neutrophils % Seg Neuts % (Manual) Lymphocytes % (Manual) Monocytes % (Manual) Eosinophils % (Manual) Seg Neutrophils # Seg Neutrophils # Man Lymphocytes # (Manual) Monocytes # (Manual) Eosinophils # (Manual) PT INR POC ABG pH ABG pH POC ABG pCO2 POC ABG pO2 ABG pO2 ABG HCO3 ABG O2 Saturation ABG Base Excess ABG Hemoglobin Oxyhemoglobin Sodium Potassium Chloride Carbon Dioxide BUN Creatinine Glucose POC Glucose 126 H 131 H 163 H Lactic Acid Calcium Phosphorus Magnesium Total Bilirubin Direct Bilirubin AST ALT Alkaline Phosphatase Total Protein Albumin Lipase Urine WBC (Auto) U Epithel Cells (Auto) Urine Creatinine Hepatitis C Antibody 07/19/19 07/19/19 07/19/19 03:35 04:57 08:15 WBC 11.1 H RBC 3.64 L Hgb Hct RDW Plt Count 71 L [place] % (Auto) [place] # Eos # Seg Neutrophils % Seg Neuts % (Manual) Lymphocytes % (Manual) Monocytes % (Manual) Eosinophils % (Manual) Seg Neutrophils # Seg Neutrophils # Man Lymphocytes # (Manual) Monocytes # (Manual) Eosinophils # (Manual) PT INR POC ABG pH ABG pH 7.296 L POC ABG pCO2 POC ABG pO2 ABG pO2 78.7 L ABG HCO3 26.4 H ABG O2 Saturation ABG Base Excess ABG Hemoglobin 11.1 L Oxyhemoglobin 93.3 L Sodium Potassium Chloride Carbon Dioxide BUN Creatinine Glucose POC Glucose 170 H Lactic Acid Calcium Phosphorus Magnesium Total Bilirubin Direct Bilirubin AST ALT Alkaline Phosphatase Total Protein Albumin Lipase Urine WBC (Auto) U Epithel Cells (Auto) Urine Creatinine Hepatitis C Antibody 07/19/19 07/19/19 07/19/19 08:15 12:34 18:32 WBC RBC Hgb Hct RDW Plt Count [place] % (Auto) [place] # Eos # Seg Neutrophils % Seg Neuts % (Manual) Lymphocytes % (Manual) Monocytes % (Manual) Eosinophils % (Manual) Seg Neutrophils # Seg Neutrophils # Man Lymphocytes # (Manual) Monocytes # (Manual) Eosinophils # (Manual) PT INR POC ABG pH ABG pH POC ABG pCO2 POC ABG pO2 ABG pO2 ABG HCO3 ABG O2 Saturation ABG Base Excess ABG Hemoglobin Oxyhemoglobin Sodium 146 H Potassium 2.9 L* Chloride 107.9 H Carbon Dioxide BUN 35 H Creatinine 1.5 H Glucose 156 H POC Glucose 160 H 138 H Lactic Acid Calcium 6.6 L Phosphorus Magnesium Total Bilirubin Direct Bilirubin AST ALT Alkaline Phosphatase Total Protein Albumin Lipase Urine WBC (Auto) U Epithel Cells (Auto) Urine Creatinine Hepatitis C Antibody 07/19/19 07/19/19 07/20/19 23:41 Unknown 04:20 WBC RBC Hgb Hct RDW Plt Count [place] % (Auto) [place] # Eos # Seg Neutrophils % Seg Neuts % (Manual) Lymphocytes % (Manual) Monocytes % (Manual) Eosinophils % (Manual) Seg Neutrophils # Seg Neutrophils # Man Lymphocytes # (Manual) Monocytes # (Manual) Eosinophils # (Manual) PT INR POC ABG pH ABG pH 7.316 L POC ABG pCO2 POC ABG pO2 ABG pO2 ABG HCO3 27.9 H ABG O2 Saturation ABG Base Excess ABG Hemoglobin Oxyhemoglobin 94.0 L Sodium 149 H Potassium 3.2 L Chloride 112.3 H Carbon Dioxide BUN 34 H Creatinine Glucose 162 H POC Glucose 145 H Lactic Acid Calcium 7.0 L Phosphorus Magnesium 1.50 L Total Bilirubin Direct Bilirubin AST ALT Alkaline Phosphatase Total Protein Albumin Lipase Urine WBC (Auto) U Epithel Cells (Auto) Urine Creatinine Hepatitis C Antibody 07/20/19 07/20/19 07/20/19 05:25 07:50 07:50 WBC 12.6 H RBC 3.51 L Hgb Hct RDW Plt Count 56 L [place] % (Auto) [place] # Eos # Seg Neutrophils % Seg Neuts % (Manual) 89.0 H Lymphocytes % (Manual) 5.0 L Monocytes % (Manual) Eosinophils % (Manual) Seg Neutrophils # Seg Neutrophils # Man 11.2 H Lymphocytes # (Manual) 0.6 L Monocytes # (Manual) Eosinophils # (Manual) PT INR POC ABG pH ABG pH POC ABG pCO2 POC ABG pO2 ABG pO2 ABG HCO3 ABG O2 Saturation ABG Base Excess ABG Hemoglobin Oxyhemoglobin Sodium 151 H Potassium 3.4 L Chloride 114.7 H Carbon Dioxide 31 H BUN 30 H Creatinine Glucose 148 H POC Glucose 141 H Lactic Acid Calcium 7.3 L Phosphorus Magnesium Total Bilirubin Direct Bilirubin AST ALT Alkaline Phosphatase Total Protein Albumin Lipase Urine WBC (Auto) U Epithel Cells (Auto) Urine Creatinine Hepatitis C Antibody 07/20/19 07/20/19 07/20/19 15:47 17:25 23:57 WBC RBC Hgb Hct RDW Plt Count [place] % (Auto) [place] # Eos # Seg Neutrophils % Seg Neuts % (Manual) Lymphocytes % (Manual) Monocytes % (Manual) Eosinophils % (Manual) Seg Neutrophils # Seg Neutrophils # Man Lymphocytes # (Manual) Monocytes # (Manual) Eosinophils # (Manual) PT INR POC ABG pH ABG pH POC ABG pCO2 POC ABG pO2 ABG pO2 ABG HCO3 ABG O2 Saturation ABG Base Excess ABG Hemoglobin Oxyhemoglobin Sodium Potassium Chloride Carbon Dioxide BUN Creatinine Glucose POC Glucose 160 H 165 H 122 H Lactic Acid Calcium Phosphorus Magnesium Total Bilirubin Direct Bilirubin AST ALT Alkaline Phosphatase Total Protein Albumin Lipase Urine WBC (Auto) U Epithel Cells (Auto) Urine Creatinine Hepatitis C Antibody 07/21/19 07/21/19 07/21/19 05:00 05:00 05:00 WBC 15.8 H RBC Hgb Hct RDW Plt Count 56 L [place] % (Auto) [place] # Eos # Seg Neutrophils % Seg Neuts % (Manual) Lymphocytes % (Manual) Monocytes % (Manual) Eosinophils % (Manual) Seg Neutrophils # Seg Neutrophils # Man Lymphocytes # (Manual) Monocytes # (Manual) Eosinophils # (Manual) PT INR POC ABG pH ABG pH POC ABG pCO2 POC ABG pO2 ABG pO2 ABG HCO3 ABG O2 Saturation ABG Base Excess ABG Hemoglobin Oxyhemoglobin Sodium 147 H Potassium 3.5 L Chloride 111.4 H Carbon Dioxide BUN 21 H Creatinine Glucose 107 H POC Glucose Lactic Acid Calcium 7.6 L Phosphorus 1.60 L Magnesium Total Bilirubin 4.80 H Direct Bilirubin AST 48 H ALT Alkaline Phosphatase 131 H Total Protein 4.3 L Albumin 1.5 L Lipase Urine WBC (Auto) U Epithel Cells (Auto) Urine Creatinine Hepatitis C Antibody 07/21/19 07/21/19 07/21/19 05:34 12:12 18:22 WBC RBC Hgb Hct RDW Plt Count [place] % (Auto) [place] # Eos # Seg Neutrophils % Seg Neuts % (Manual) Lymphocytes % (Manual) Monocytes % (Manual) Eosinophils % (Manual) Seg Neutrophils # Seg Neutrophils # Man Lymphocytes # (Manual) Monocytes # (Manual) Eosinophils # (Manual) PT INR POC ABG pH ABG pH POC ABG pCO2 POC ABG pO2 ABG pO2 ABG HCO3 ABG O2 Saturation ABG Base Excess ABG Hemoglobin Oxyhemoglobin Sodium Potassium Chloride Carbon Dioxide BUN Creatinine Glucose POC Glucose 119 H 108 H 125 H Lactic Acid Calcium Phosphorus Magnesium Total Bilirubin Direct Bilirubin AST ALT Alkaline Phosphatase Total Protein Albumin Lipase Urine WBC (Auto) U Epithel Cells (Auto) Urine Creatinine Hepatitis C Antibody 07/21/19 07/21/19 07/22/19 23:27 Unknown 04:25 WBC RBC Hgb Hct RDW Plt Count [place] % (Auto) [place] # Eos # Seg Neutrophils % Seg Neuts % (Manual) Lymphocytes % (Manual) Monocytes % (Manual) Eosinophils % (Manual) Seg Neutrophils # Seg Neutrophils # Man Lymphocytes # (Manual) Monocytes # (Manual) Eosinophils # (Manual) PT INR POC ABG pH ABG pH POC ABG pCO2 POC ABG pO2 ABG pO2 61.9 L 68.7 L ABG HCO3 28.9 H 29.1 H ABG O2 Saturation 93.5 L 94.4 L ABG Base Excess 3.5 H ABG Hemoglobin 10.8 L 11.5 L Oxyhemoglobin 91.6 L 92.3 L Sodium Potassium Chloride Carbon Dioxide BUN Creatinine Glucose POC Glucose 126 H Lactic Acid Calcium Phosphorus Magnesium Total Bilirubin Direct Bilirubin AST ALT Alkaline Phosphatase Total Protein Albumin Lipase Urine WBC (Auto) U Epithel Cells (Auto) Urine Creatinine Hepatitis C Antibody 07/22/19 07/22/19 07/22/19 05:25 07:00 07:00 WBC 14.9 H RBC Hgb Hct RDW Plt Count 87 L [place] % (Auto) [place] # Eos # Seg Neutrophils % Seg Neuts % (Manual) Lymphocytes % (Manual) Monocytes % (Manual) Eosinophils % (Manual) Seg Neutrophils # Seg Neutrophils # Man Lymphocytes # (Manual) Monocytes # (Manual) Eosinophils # (Manual) PT INR POC ABG pH ABG pH POC ABG pCO2 POC ABG pO2 ABG pO2 ABG HCO3 ABG O2 Saturation ABG Base Excess ABG Hemoglobin Oxyhemoglobin Sodium 147 H Potassium 3.3 L Chloride 110.9 H Carbon Dioxide BUN Creatinine 0.6 L Glucose 107 H POC Glucose 107 H Lactic Acid Calcium 7.5 L Phosphorus Magnesium Total Bilirubin Direct Bilirubin AST ALT Alkaline Phosphatase Total Protein Albumin Lipase Urine WBC (Auto) U Epithel Cells (Auto) Urine Creatinine Hepatitis C Antibody 07/22/19 07/22/19 07/23/19 17:41 23:40 04:50 WBC RBC Hgb Hct RDW Plt Count [place] % (Auto) [place] # Eos # Seg Neutrophils % Seg Neuts % (Manual) Lymphocytes % (Manual) Monocytes % (Manual) Eosinophils % (Manual) Seg Neutrophils # Seg Neutrophils # Man Lymphocytes # (Manual) Monocytes # (Manual) Eosinophils # (Manual) PT INR POC ABG pH ABG pH POC ABG pCO2 POC ABG pO2 ABG pO2 ABG HCO3 ABG O2 Saturation ABG Base Excess ABG Hemoglobin Oxyhemoglobin Sodium Potassium Chloride Carbon Dioxide BUN Creatinine 0.6 L Glucose 102 H POC Glucose 132 H 123 H Lactic Acid Calcium 7.8 L Phosphorus Magnesium 1.50 L Total Bilirubin Direct Bilirubin AST ALT Alkaline Phosphatase Total Protein Albumin Lipase Urine WBC (Auto) U Epithel Cells (Auto) Urine Creatinine Hepatitis C Antibody 07/23/19 07/23/19 07/23/19 05:00 10:50 10:50 WBC 13.0 H RBC 3.41 L Hgb Hct RDW Plt Count 100 L [place] % (Auto) [place] # Eos # Seg Neutrophils % Seg Neuts % (Manual) Lymphocytes % (Manual) Monocytes % (Manual) Eosinophils % (Manual) Seg Neutrophils # Seg Neutrophils # Man Lymphocytes # (Manual) Monocytes # (Manual) Eosinophils # (Manual) PT INR POC ABG pH ABG pH POC ABG pCO2 POC ABG pO2 ABG pO2 100.4 H ABG HCO3 28.7 H ABG O2 Saturation ABG Base Excess ABG Hemoglobin 11.0 L Oxyhemoglobin Sodium Potassium Chloride Carbon Dioxide BUN Creatinine Glucose POC Glucose Lactic Acid Calcium Phosphorus Magnesium Total Bilirubin 2.60 H Direct Bilirubin 2.2 H AST 41 H ALT Alkaline Phosphatase Total Protein 4.4 L Albumin 1.4 L Lipase Urine WBC (Auto) U Epithel Cells (Auto) Urine Creatinine Hepatitis C Antibody 07/23/19 07/23/19 07/23/19 11:49 11:49 17:42 WBC RBC Hgb Hct RDW Plt Count [place] % (Auto) [place] # Eos # Seg Neutrophils % Seg Neuts % (Manual) Lymphocytes % (Manual) Monocytes % (Manual) Eosinophils % (Manual) Seg Neutrophils # Seg Neutrophils # Man Lymphocytes # (Manual) Monocytes # (Manual) Eosinophils # (Manual) PT INR POC ABG pH ABG pH POC ABG pCO2 POC ABG pO2 ABG pO2 ABG HCO3 ABG O2 Saturation ABG Base Excess ABG Hemoglobin Oxyhemoglobin Sodium Potassium Chloride Carbon Dioxide BUN Creatinine Glucose POC Glucose 109 H 124 H Lactic Acid Calcium Phosphorus Magnesium Total Bilirubin Direct Bilirubin AST ALT Alkaline Phosphatase Total Protein Albumin Lipase Urine WBC (Auto) U Epithel Cells (Auto) Urine Creatinine Hepatitis C Antibody Reactive A 07/23/19 07/24/19 07/24/19 23:37 03:34 03:34 WBC 13.7 H RBC 3.39 L Hgb Hct 29.9 L RDW Plt Count 116 L [place] % (Auto) [place] # Eos # Seg Neutrophils % 77.7 H Seg Neuts % (Manual) Lymphocytes % (Manual) Monocytes % (Manual) Eosinophils % (Manual) Seg Neutrophils # 10.6 H Seg Neutrophils # Man Lymphocytes # (Manual) Monocytes # (Manual) Eosinophils # (Manual) PT INR POC ABG pH ABG pH POC ABG pCO2 POC ABG pO2 ABG pO2 ABG HCO3 ABG O2 Saturation ABG Base Excess ABG Hemoglobin Oxyhemoglobin Sodium Potassium 3.3 L Chloride Carbon Dioxide 35 H BUN Creatinine 0.6 L Glucose 139 H POC Glucose 145 H Lactic Acid Calcium 7.7 L Phosphorus Magnesium Total Bilirubin Direct Bilirubin AST ALT Alkaline Phosphatase Total Protein Albumin Lipase Urine WBC (Auto) U Epithel Cells (Auto) Urine Creatinine Hepatitis C Antibody 07/24/19 07/24/19 07/24/19 04:50 05:11 11:29 WBC RBC Hgb Hct RDW Plt Count [place] % (Auto) [place] # Eos # Seg Neutrophils % Seg Neuts % (Manual) Lymphocytes % (Manual) Monocytes % (Manual) Eosinophils % (Manual) Seg Neutrophils # Seg Neutrophils # Man Lymphocytes # (Manual) Monocytes # (Manual) Eosinophils # (Manual) PT INR POC ABG pH ABG pH 7.457 H POC ABG pCO2 POC ABG pO2 ABG pO2 138.3 H ABG HCO3 32.1 H ABG O2 Saturation ABG Base Excess 7.4 H ABG Hemoglobin 8.2 L Oxyhemoglobin Sodium Potassium Chloride Carbon Dioxide BUN Creatinine Glucose POC Glucose 128 H 123 H Lactic Acid Calcium Phosphorus Magnesium Total Bilirubin Direct Bilirubin AST ALT Alkaline Phosphatase Total Protein Albumin Lipase Urine WBC (Auto) U Epithel Cells (Auto) Urine Creatinine Hepatitis C Antibody 07/24/19 07/24/19 07/25/19 17:50 23:39 04:09 WBC 12.5 H RBC 3.13 L Hgb 9.3 L Hct 27.7 L RDW Plt Count [place] % (Auto) [place] # Eos # Seg Neutrophils % 77.2 H Seg Neuts % (Manual) Lymphocytes % (Manual) Monocytes % (Manual) Eosinophils % (Manual) Seg Neutrophils # 9.6 H Seg Neutrophils # Man Lymphocytes # (Manual) Monocytes # (Manual) Eosinophils # (Manual) PT INR POC ABG pH ABG pH POC ABG pCO2 POC ABG pO2 ABG pO2 ABG HCO3 ABG O2 Saturation ABG Base Excess ABG Hemoglobin Oxyhemoglobin Sodium Potassium Chloride Carbon Dioxide BUN Creatinine Glucose POC Glucose 125 H 144 H Lactic Acid Calcium Phosphorus Magnesium Total Bilirubin Direct Bilirubin AST ALT Alkaline Phosphatase Total Protein Albumin Lipase Urine WBC (Auto) U Epithel Cells (Auto) Urine Creatinine Hepatitis C Antibody 07/25/19 07/25/19 07/25/19 04:09 05:12 05:29 WBC RBC Hgb Hct RDW Plt Count [place] % (Auto) [place] # Eos # Seg Neutrophils % Seg Neuts % (Manual) Lymphocytes % (Manual) Monocytes % (Manual) Eosinophils % (Manual) Seg Neutrophils # Seg Neutrophils # Man Lymphocytes # (Manual) Monocytes # (Manual) Eosinophils # (Manual) PT INR POC ABG pH ABG pH POC ABG pCO2 POC ABG pO2 ABG pO2 65.7 L ABG HCO3 33.6 H ABG O2 Saturation 92.8 L ABG Base Excess 7.9 H ABG Hemoglobin 11.9 L Oxyhemoglobin 90.7 L Sodium Potassium 3.1 L Chloride Carbon Dioxide 34 H BUN Creatinine 0.6 L Glucose 159 H POC Glucose 168 H Lactic Acid Calcium 7.5 L Phosphorus Magnesium Total Bilirubin 1.30 H Direct Bilirubin AST ALT Alkaline Phosphatase Total Protein 4.8 L Albumin 1.4 L Lipase Urine WBC (Auto) U Epithel Cells (Auto) Urine Creatinine Hepatitis C Antibody 07/25/19 07/25/19 07/26/19 11:34 23:30 04:25 WBC RBC Hgb Hct RDW Plt Count [place] % (Auto) [place] # Eos # Seg Neutrophils % Seg Neuts % (Manual) Lymphocytes % (Manual) Monocytes % (Manual) Eosinophils % (Manual) Seg Neutrophils # Seg Neutrophils # Man Lymphocytes # (Manual) Monocytes # (Manual) Eosinophils # (Manual) PT INR POC ABG pH ABG pH POC ABG pCO2 POC ABG pO2 ABG pO2 101.9 H ABG HCO3 32.0 H ABG O2 Saturation ABG Base Excess 6.5 H ABG Hemoglobin 9.9 L Oxyhemoglobin Sodium Potassium Chloride Carbon Dioxide BUN Creatinine Glucose POC Glucose 124 H 126 H Lactic Acid Calcium Phosphorus Magnesium Total Bilirubin Direct Bilirubin AST ALT Alkaline Phosphatase Total Protein Albumin Lipase Urine WBC (Auto) U Epithel Cells (Auto) Urine Creatinine Hepatitis C Antibody 07/26/19 07/26/19 07/26/19 05:00 05:00 05:38 WBC 12.3 H RBC 3.11 L Hgb 9.2 L Hct 28.2 L RDW 15.4 H Plt Count [place] % (Auto) 7.8 H [place] # 1.0 H Eos # Seg Neutrophils % 73.0 H Seg Neuts % (Manual) Lymphocytes % (Manual) Monocytes % (Manual) Eosinophils % (Manual) Seg Neutrophils # 8.9 H Seg Neutrophils # Man Lymphocytes # (Manual) Monocytes # (Manual) Eosinophils # (Manual) PT INR POC ABG pH ABG pH POC ABG pCO2 POC ABG pO2 ABG pO2 ABG HCO3 ABG O2 Saturation ABG Base Excess ABG Hemoglobin Oxyhemoglobin Sodium Potassium Chloride Carbon Dioxide 32 H BUN Creatinine Glucose 135 H POC Glucose 145 H Lactic Acid Calcium 7.9 L Phosphorus Magnesium Total Bilirubin Direct Bilirubin AST ALT Alkaline Phosphatase Total Protein Albumin Lipase Urine WBC (Auto) U Epithel Cells (Auto) Urine Creatinine Hepatitis C Antibody 07/26/19 07/26/19 07/26/19 11:16 17:55 23:26 WBC RBC Hgb Hct RDW Plt Count [place] % (Auto) [place] # Eos # Seg Neutrophils % Seg Neuts % (Manual) Lymphocytes % (Manual) Monocytes % (Manual) Eosinophils % (Manual) Seg Neutrophils # Seg Neutrophils # Man Lymphocytes # (Manual) Monocytes # (Manual) Eosinophils # (Manual) PT INR POC ABG pH ABG pH POC ABG pCO2 POC ABG pO2 ABG pO2 ABG HCO3 ABG O2 Saturation ABG Base Excess ABG Hemoglobin Oxyhemoglobin Sodium Potassium Chloride Carbon Dioxide BUN Creatinine Glucose POC Glucose 140 H 123 H 128 H Lactic Acid Calcium Phosphorus Magnesium Total Bilirubin Direct Bilirubin AST ALT Alkaline Phosphatase Total Protein Albumin Lipase Urine WBC (Auto) U Epithel Cells (Auto) Urine Creatinine Hepatitis C Antibody 07/27/19 07/27/19 07/27/19 05:29 05:40 05:40 WBC 13.2 H RBC 3.26 L Hgb 9.6 L Hct 29.5 L RDW Plt Count [place] % (Auto) [place] # 0.9 H Eos # Seg Neutrophils % 73.6 H Seg Neuts % (Manual) Lymphocytes % (Manual) Monocytes % (Manual) Eosinophils % (Manual) Seg Neutrophils # 9.7 H Seg Neutrophils # Man Lymphocytes # (Manual) Monocytes # (Manual) Eosinophils # (Manual) PT INR POC ABG pH ABG pH POC ABG pCO2 POC ABG pO2 ABG pO2 ABG HCO3 ABG O2 Saturation ABG Base Excess ABG Hemoglobin Oxyhemoglobin Sodium Potassium Chloride Carbon Dioxide BUN Creatinine 0.6 L Glucose 136 H POC Glucose 143 H Lactic Acid Calcium 8.2 L Phosphorus Magnesium Total Bilirubin Direct Bilirubin AST ALT Alkaline Phosphatase Total Protein Albumin Lipase Urine WBC (Auto) U Epithel Cells (Auto) Urine Creatinine Hepatitis C Antibody 07/27/19 07/27/19 07/27/19 06:29 12:32 17:24 WBC RBC Hgb Hct RDW Plt Count [place] % (Auto) [place] # Eos # Seg Neutrophils % Seg Neuts % (Manual) Lymphocytes % (Manual) Monocytes % (Manual) Eosinophils % (Manual) Seg Neutrophils # Seg Neutrophils # Man Lymphocytes # (Manual) Monocytes # (Manual) Eosinophils # (Manual) PT INR POC ABG pH 7.460 H ABG pH POC ABG pCO2 POC ABG pO2 60 L ABG pO2 ABG HCO3 ABG O2 Saturation ABG Base Excess ABG Hemoglobin Oxyhemoglobin Sodium Potassium Chloride Carbon Dioxide BUN Creatinine Glucose POC Glucose 139 H 126 H Lactic Acid Calcium Phosphorus Magnesium Total Bilirubin Direct Bilirubin AST ALT Alkaline Phosphatase Total Protein Albumin Lipase Urine WBC (Auto) U Epithel Cells (Auto) Urine Creatinine Hepatitis C Antibody 07/28/19 07/28/19 07/28/19 00:00 05:42 11:37 WBC RBC Hgb Hct RDW Plt Count [place] % (Auto) [place] # Eos # Seg Neutrophils % Seg Neuts % (Manual) Lymphocytes % (Manual) Monocytes % (Manual) Eosinophils % (Manual) Seg Neutrophils # Seg Neutrophils # Man Lymphocytes # (Manual) Monocytes # (Manual) Eosinophils # (Manual) PT INR POC ABG pH ABG pH POC ABG pCO2 POC ABG pO2 ABG pO2 ABG HCO3 ABG O2 Saturation ABG Base Excess ABG Hemoglobin Oxyhemoglobin Sodium Potassium Chloride Carbon Dioxide BUN Creatinine Glucose POC Glucose 120 H 114 H 111 H Lactic Acid Calcium Phosphorus Magnesium Total Bilirubin Direct Bilirubin AST ALT Alkaline Phosphatase Total Protein Albumin Lipase Urine WBC (Auto) U Epithel Cells (Auto) Urine Creatinine Hepatitis C Antibody 07/28/19 07/28/19 07/28/19 11:50 11:50 23:49 WBC 22.7 H RBC 3.63 L Hgb Hct RDW Plt Count 520 H [place] % (Auto) [place] # Eos # Seg Neutrophils % Seg Neuts % (Manual) Lymphocytes % (Manual) Monocytes % (Manual) Eosinophils % (Manual) Seg Neutrophils # Seg Neutrophils # Man Lymphocytes # (Manual) Monocytes # (Manual) Eosinophils # (Manual) PT INR POC ABG pH ABG pH POC ABG pCO2 POC ABG pO2 ABG pO2 ABG HCO3 ABG O2 Saturation ABG Base Excess ABG Hemoglobin Oxyhemoglobin Sodium 134 L Potassium 5.6 H D Chloride 96.9 L Carbon Dioxide BUN Creatinine Glucose 121 H POC Glucose 129 H Lactic Acid Calcium Phosphorus Magnesium Total Bilirubin Direct Bilirubin AST ALT Alkaline Phosphatase Total Protein Albumin Lipase Urine WBC (Auto) U Epithel Cells (Auto) Urine Creatinine Hepatitis C Antibody 07/28/19 07/29/19 07/29/19 Unknown 03:50 05:13 WBC RBC Hgb Hct RDW Plt Count [place] % (Auto) [place] # Eos # Seg Neutrophils % Seg Neuts % (Manual) Lymphocytes % (Manual) Monocytes % (Manual) Eosinophils % (Manual) Seg Neutrophils # Seg Neutrophils # Man Lymphocytes # (Manual) Monocytes # (Manual) Eosinophils # (Manual) PT INR POC ABG pH ABG pH 7.498 H 7.453 H POC ABG pCO2 POC ABG pO2 ABG pO2 59.8 L ABG HCO3 29.0 H ABG O2 Saturation 94.1 L ABG Base Excess 4.6 H ABG Hemoglobin 9.1 L Oxyhemoglobin 91.5 L Sodium Potassium Chloride Carbon Dioxide BUN Creatinine Glucose POC Glucose 132 H Lactic Acid Calcium Phosphorus Magnesium Total Bilirubin Direct Bilirubin AST ALT Alkaline Phosphatase Total Protein Albumin Lipase Urine WBC (Auto) U Epithel Cells (Auto) Urine Creatinine Hepatitis C Antibody 07/29/19 07/29/19 06:00 06:00 WBC 12.3 H RBC 3.02 L Hgb 9.1 L Hct 26.7 L D RDW Plt Count 475 H [place] % (Auto) 11.0 H [place] # 1.4 H Eos # 0.5 H Seg Neutrophils % Seg Neuts % (Manual) Lymphocytes % (Manual) Monocytes % (Manual) Eosinophils % (Manual) Seg Neutrophils # Seg Neutrophils # Man Lymphocytes # (Manual) Monocytes # (Manual) Eosinophils # (Manual) PT INR POC ABG pH ABG pH POC ABG pCO2 POC ABG pO2 ABG pO2 ABG HCO3 ABG O2 Saturation ABG Base Excess ABG Hemoglobin Oxyhemoglobin Sodium 136 L Potassium Chloride 97.5 L Carbon Dioxide BUN 19 H Creatinine Glucose 136 H POC Glucose Lactic Acid Calcium Phosphorus Magnesium Total Bilirubin Direct Bilirubin AST ALT Alkaline Phosphatase Total Protein Albumin Lipase Urine WBC (Auto) U Epithel Cells (Auto) Urine Creatinine Hepatitis C Antibody
[2019-07-29] MEDS: MIDAZOLAM 100 MG in NACL 0.9% 80 ML IV SCH (13:32)
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
--- NOTE | 2019-07-29 16:44 | Cat Scan Report ---
CT SINUSES HISTORY: Altered mental status, persistent fever COMPARISON: None. TECHNIQUE: Axial images of the sinuses were obtained. Coronal reformats were generated. All CT scans at this location are performed using CT dose reduction for ALARA by means of automated exposure cont rol. CONTRAST: None. FINDINGS: Nasal septum: No significant deviation. Paranasal sinuses: There is trace mucosal thickening in the right maxillary sinus and left sphenoid s inus without air-fluid levels. There is no aggressive or invasive sinusitis feature. There is develop mental hypoplasia of the right frontal sinus. Ostiomeatal complex: No significant abnormality. Frontal Recesses: Clear Sphenoethmoidal Recesses: Clear Anatomical Variants: None. Visualized mastoid air cells: There is mild fluid partially opacifying the bilateral mastoid air cell s and right middle ear without any aggressive/invasive features. Visualized intracranial space: No significant abnormality. Visualized orbits: No significant abnormality. Additional findings: Patient is nasally and orally intubated. IMPRESSION: 1. Trace mucosal thickening in the left sphenoid sinus and right maxillary sinus without air-fluid levels or aggressive/invasive features. 2. Mild fluid partially opacifying both mastoid air cells, most likely due to the patient's intubated state. No aggressive or invasive features. Signer Name: Sourav Umana MD Signed: 07/29/2019 4:40 PM Workstation Name: [id number]
--- NOTE | 2019-07-29 16:51 | Cat Scan Report ---
CT ABDOMEN AND PELVIS WITH CONTRAST INDICATION: possible perinephric abscess. COMPARISON: CT abdomen and pelvis without contrast from 04/15/2019. TECHNIQUE: Axial, coronal and sagittal CT imaging of the abdomen and pelvis was performed after inje ction of 100 cc Omnipaque [address] scans at this location are performed using CT dose re duction for ALARA by means of automated exposure control. FINDINGS: Motion and streak artifact limit portions of this exam. LOWER CHEST: Small pleural effusions are noted bilaterally with bibasilar consolidations that may rep resent atelectasis, pneumonia or edema. No additional significant abnormality. LIVER: No significant abnormality. BILIARY: No significant abnormality. PANCREAS: No significant abnormality. SPLEEN: The spleen is at the upper limits of normal size without an additional significant abnormalit y. ADRENALS: No significant abnormality. KIDNEYS AND URETERS: A heterogeneous mixed solid and cystic structure arising from the left upper aroldo al pole has indistinct margins and measures 6.8 x 5.7 cm on image 71 of series 3. Another heterogeneo us lesion similar to that seen along the left upper renal pole arises along the lower pole of the lef t kidney and measures 5.7 x 4.0 cm on image 99 of series 3. Additional scattered cystic structures ar e seen throughout the left kidney. There is generalized enlargement of the left kidney. No suspicious right renal lesions are noted. No stones are identified. There is no hydroureteronephrosis. GI TRACT: An NG tube terminates along the distal gastric body. No significant abnormality of the stom ach, small bowel or colon is seen. The appendix is unremarkable. PERITONEUM: No free fluid. No free air. No fluid collection. LYMPH NODES: No significant adenopathy. VASCULATURE: No significant abnormality. URINARY BLADDER: No significant abnormality. REPRODUCTIVE ORGANS: Multiple follicles are seen within each ovary without a suspicious solid/cystic adnexal mass. The uterus is unremarkable. ADDITIONAL FINDINGS: None. SKELETAL SYSTEM: No significant abnormality. IMPRESSION: 1. Abnormal appearance of the kidney as detailed above with possible abscesses versus complex masses involving the upper and lower poles. 2. Small bilateral pleural effusions with nonspecific bibasilar opacities that could represent atelec tasis, edema or pneumonia. Please correlate with the clinical findings. Signer Name: Chapo Hatfield MD Signed: 07/29/2019 4:46 PM Workstation Name: [id number]
--- NOTE | 2019-07-29 17:23 | Progress Note ---
Assessment and Plan /Acute hypoxic respiratory failure; requiring intubation >96h - ARDS Likely from severe sepsis Continue ventilatory support , nebulizers, supportive care Pulmonary critical following, wean as tolerated Requiring high FiO2 to maintain oxygen saturation - trending down wean off vent as tolerated, s/p bronch 07/28/19 - f/u BAL / Severe sepsis with Septic shock and organ failure/right foot infection/pyelonephritis/bacreremia Secondary to pyelonephritis and Escherichia coli bacteremia. weaned off pressor, Continue abx per ID, potential stop date: 07/30/19 for 2 weeks therapy. /Febrile illness, cont to spike fever, on abx, ordered DVT study - negative s/p bronch 07/28/19- Follow up BAL cultures. - ordered CTAP with contrast today to rule out perinephric abscess. Previous CT was without contrast. /E.coli bacteremia, likely source from pyelonephritis Continue to treat with empiric antibiotic per ID recommendation /Transaminitis - Could be from severe sepsis versus and underlying chronic hepatitis C - trending down LFTs, s/p HIDA scan showed normal study - hepatitis panel showed positive hepatitis C antibody - need further outpatient follow-up / Acute pyelonephritis To be improving. Decreased leukocytosis. She remains critically ill. / Cellulites of right foot, improved with abx /Acute renal failure due to ATN from severe sepsis Creatinine was 2.2 on admission monitor renal function, Cr now stable / Malnutrition Nutrition corrected by NG tube feedings. Nutrition following /Electrolyte imbalance Hyponatremia -manage with free water with tube feeding Hypokalemia - continue to replete as needed and continue to monitor BMP Hypomagnesemia - replete as needed, continue to follow The high probability of a clinically significant, sudden or life threatening deterioration of the [pulmonary, renal, infectious, metabolic] system(s) required my full and direct attention, intervention and personal management. The aggregate critical care time was [35] minutes. This time is in addition to time spent performing reported procedures but includes the following: [X] Data Review and interpretation [X] Patient assessment and monitoring of vital signs [x] Documentation [x] Medication orders and management Brief history The patient is a 44-year-old female with bipolar disorder presented to the emergency room with right foot pain, abdominal pain and fevers. She previously presented to the emergency room on 06/28/2019 with right foot with redness and pain following a possible spider bite. She was given a prescription for oral Augmentin and was discharged home. Patient stated that she was compliant with Augmentin and also was soaking her right foot in Epsom salts. About 2-3 days prior to admission, she started developing fevers, nausea as well as worsening abdominal pain. She has presented to the emergency room and was hospitalized. She was noted to be septic,Started on empiric antibiotics. She decompensated on the floor and required intubation and transferred to ICU for further management on 07/17/2019. Also required pressors for septic shock, blood culture growing Escherichia coli bacteremia. Patient is now on Lopressor, still intubated with 40% FiO2 and high PEEP. Plan to continue wean off from vent as tolerated and complete her antibiotic regimen for bacteremia. Radiological data: CT abdomen/pelvis: 1. Mild nonspecific left-sided perinephric stranding in this patient with punctate bilateral nonobstructive nephrolithiasis. No asymmetric hydronephrosis or ureteral stone disease. 2. Complex cyst versus mass in the left ovary. Recommend nonemergent follow-up pelvic ultrasound. 3. Mild periportal edema could be related to aggressive hydration therapy. 4. Other incidental findings as outlined above on this limited noncontrast exam with mild motion artifact. Of note, there is a 5 mm nodule in the right middle lobe. Please see below recommendations. Abdomen ultrasound: 1. No gallstones, but the gallbladder wall is thickened and edematous. 2. Small bilateral pleural effusions. Hospitalist Physical General appearance: Present: no acute distress, well-nourished, other (intubated on ventilatory support and sedated) - EENT Eyes: Present: PERRL, EOM intact - Neck Neck: Present: supple, normal ROM - Respiratory Respiratory effort: labored Respiratory: bilateral: diminished, rhonchi, negative: rales, wheezing - Cardiovascular Rhythm: regular Heart Sounds: Present: S1 & S2 - Extremities Extremities: no ischemia, abnormal (cellulites lower extremity) Extremity abnormal: edema - Abdominal General gastrointestinal: soft, non-tender, non-distended, normal bowel sounds - Integumentary Integumentary: Present: clear, warm - Psychiatric Psychiatric: other (intubated on vent) - Neurologic Neurologic: other (intubated on vent) Subjective Date of service: 07/29/19 Principal diagnosis: Acute respiratory failure Interval history: Patient seen and examined Remain intubated, off pressor support, Tolerating tube feeding cont to remain febrile Objective - Constitutional Vitals: Vital Signs - 12hr 07/29/19 07/29/19 07/29/19 05:30 06:00 06:30 Temperature Pulse Rate 100 H 94 H 96 H Respiratory 20 26 H 12 Rate Blood Pressure 91/51 97/53 96/57 O2 Sat by Pulse 99 99 99 Oximetry 07/29/19 07/29/19 07/29/19 07:00 07:30 08:00 Temperature 100.4 F H Pulse Rate 98 H 103 H 108 H Respiratory 15 13 20 Rate Blood Pressure 95/59 102/66 115/72 O2 Sat by Pulse 99 100 97 Oximetry 07/29/19 07/29/19 07/29/19 08:22 08:30 09:00 Temperature 100.4 F H Pulse Rate 97 H 96 H Respiratory 26 H 25 H Rate Blood Pressure 93/57 95/51 O2 Sat by Pulse 98 99 Oximetry 07/29/19 07/29/19 07/29/19 09:30 10:00 10:30 Temperature Pulse Rate 94 H 98 H 96 H Respiratory 26 H 18 27 H Rate Blood Pressure 89/59 97/61 92/60 O2 Sat by Pulse 100 100 100 Oximetry 07/29/19 07/29/19 07/29/19 11:00 11:30 11:38 Temperature Pulse Rate 94 H 102 H 93 H Respiratory 20 20 Rate Blood Pressure 95/60 92/64 100/61 O2 Sat by Pulse 100 100 100 Oximetry 07/29/19 07/29/19 07/29/19 12:00 12:29 12:30 Temperature 98.4 F 98.9 F Pulse Rate 95 H 99 H Respiratory 26 H 26 H Rate Blood Pressure 97/62 100/65 O2 Sat by Pulse 100 100 Oximetry 07/29/19 07/29/19 07/29/19 13:00 13:30 14:00 Temperature Pulse Rate 103 H 112 H 121 H Respiratory 23 18 21 Rate Blood Pressure 106/63 104/70 113/72 O2 Sat by Pulse 100 100 99 Oximetry 07/29/19 07/29/19 07/29/19 15:09 15:30 16:00 Temperature 99.0 F Pulse Rate 127 H 131 H 118 H Respiratory 25 H 26 H Rate Blood Pressure 113/72 109/53 102/59 O2 Sat by Pulse 98 96 97 Oximetry 07/29/19 07/29/19 16:30 17:00 Temperature Pulse Rate 113 H 109 H Respiratory 26 H 26 H Rate Blood Pressure 96/56 93/50 O2 Sat by Pulse 98 98 Oximetry - Labs CBC & Chem 7: 07/29/19 06:00 07/29/19 06:00 Labs: Abnormal lab results 07/28/19 07/29/19 07/29/19 Range/Units 23:49 03:50 05:13 WBC (4.5-11.0) K/mm3 RBC (3.65-5.03) M/mm3 Hgb (10.1-14.3) gm/dl Hct (30.3-42.9) % Plt Count (140-440) K/mm3 [place] % (Auto) (0.0-7.3) % [place] # (0.0-0.8) K/mm3 Eos # (0.0-0.4) K/mm3 ABG pH 7.453 H (7.350-7.450) pH Units ABG HCO3 29.0 H (20.0-26.0) mmol/L ABG Base Excess 4.6 H (-2.0-3.0) mmol/L ABG Hemoglobin 9.1 L (12.0-16.0) gm/dl Sodium (137-145) mmol/L Chloride (98-107) mmol/L BUN (7-17) mg/dL Glucose (65-100) mg/dL POC Glucose 129 H 132 H (70-105) 07/29/19 07/29/19 Range/Units 06:00 06:00 WBC 12.3 H (4.5-11.0) K/mm3 RBC 3.02 L (3.65-5.03) M/mm3 Hgb 9.1 L (10.1-14.3) gm/dl Hct 26.7 L D (30.3-42.9) % Plt Count 475 H (140-440) K/mm3 [place] % (Auto) 11.0 H (0.0-7.3) % [place] # 1.4 H (0.0-0.8) K/mm3 Eos # 0.5 H (0.0-0.4) K/mm3 ABG pH (7.350-7.450) pH Units ABG HCO3 (20.0-26.0) mmol/L ABG Base Excess (-2.0-3.0) mmol/L ABG Hemoglobin (12.0-16.0) gm/dl Sodium 136 L (137-145) mmol/L Chloride 97.5 L (98-107) mmol/L BUN 19 H (7-17) mg/dL Glucose 136 H (65-100) mg/dL POC Glucose (70-105)
--- NOTE | 2019-07-29 17:29 | Cat Scan Report ---
CT of the head without contrast INDICATION: Altered mental status with fever. TECHNIQUE: Routine CT head without contrast. All CT scans at this location are performed using CT dos e reduction for ALARA by means of automated exposure control. COMPARISON: None. FINDINGS: BRAIN / INTRACRANIAL CONTENTS: No acute hemorrhage, mass effect, midline shift, or hydrocephalus. No appreciable acute large territorial or lacunar infarct. No chronic infarct or focal atrophy. Normal b rain volume and ventricular/sulcal size for age. ORBITS: No significant abnormality of visualized orbits. SINUSES / MASTOIDS: There is mild mucosal thickening partially opacifying the bilateral mastoid air c ells without aggressive features, likely related to the patient's intubated state. ADDITIONAL FINDINGS: None. IMPRESSION: 1. No acute intracranial abnormality. Signer Name: Sourav Umana MD Signed: 07/29/2019 5:25 PM Workstation Name: [id number]
--- NOTE | 2019-07-29 22:48 | Cat Scan Report ---
CT chest wo con INDICATION: Persistent fever with left sided lung diseases. TECHNIQUE: All CT scans at this location are performed using the following dose modulation technique: Automated exposure control. CONTRAST: None. COMPARISON: Chest x-ray 07/28/2019. FINDINGS: Small basilar effusions left greater than right. Ground glass opacity is scattered left greater than right with an upper lobe predominance. More local ized volume loss/consolidation is present at the lingula. Negative for mediastinal mass or adenopathy . A tracheostomy catheter and NG tube are in place. IMPRESSION: 1. Pneumonia left greater than right. 2. Small bilateral pleural effusions left greater than right. Signer Name: Ryan Isidro MD Signed: 07/29/2019 10:44 PM Workstation Name: [id number]
[2019-07-30] MEDS: fentaNYL DRIP Premix 2,000 MCG/100 ML BAG IV SCH ×2 (01:58→10:00)
[2019-07-30 06:23] LABS: Basophils # (Auto) 0.1 K/mm3 (0.0-0.1); Basophils % (Auto) 1.1 % (0.0-1.8); Eosinophils # (Auto) 0.6 K/mm3 (0.0-0.4); Eosinophils % (Auto) 5.2 % (0.0-4.3); Hematocrit 27.4 % (30.3-42.9); Hemoglobin 9.1 gm/dl (10.1-14.3); Lymphocytes # (Auto) 2.3 K/mm3 (1.2-5.4); Lymphocytes % (Auto) 20.7 % (13.4-35.0); Mean Corpuscular HGB Conc 33 % (30-34); Mean Corpuscular Volume 90 fl (79-97); Monocytes # (Auto) 1.4 K/mm3 (0.0-0.8); Monocytes % (Auto) 12.5 % (0.0-7.3); Platelet Count 576 K/mm3 (140-440); Red Blood Count 3.05 M/mm3 (3.65-5.03); Red Cell Distribution Width 14.2 % (13.2-15.2)
[2019-07-30 06:42] LABS: BUN/Creatinine Ratio 30; Blood Urea Nitrogen 21 mg/dL (7-17); Calcium 8.7 mg/dL (8.4-10.2); Hemolysis Index 0
[2019-07-30] MEDS: HABITROL TD SCH (09:33)
[2019-07-30] MEDS: PEPCID PO SCH ×2 (09:34→23:00)
[2019-07-30] MEDS: SODIUM CHLORIDE FLUSH SYRINGE 10 ML IV SCH ×2 (09:34→23:00)
[2019-07-30] MEDS: LOVENOX SUB-Q SCH (09:34)
[2019-07-30] MEDS: ROCEPHIN/NS 2 GM/100 ML 2 GM/100 ML BAG IV SCH (09:34)
[2019-07-30] MEDS: HCTZ PO SCH (09:34)
--- NOTE | 2019-07-30 10:52 | Progress Note ---
Assessment and Plan /Acute hypoxic respiratory failure; requiring intubation >96h - ARDS Likely from severe sepsis Continue ventilatory support , nebulizers, supportive care Pulmonary critical following, wean as tolerated Requiring high FiO2 and PEEP to maintain oxygen saturation - trending down wean off vent as tolerated, s/p bronch 07/28/19 - negative BAL / Severe sepsis with Septic shock and organ failure from renal abscess/ bacteremia/right foot cellulites with persistent fever Secondary to pyelonephritis with renal abscess and Escherichia coli bacteremia. weaned off pressor, Continue abx per ID, CTAP with contrast showed left renal abscess - plan for surgery today /Febrile illness, cont to spike fever, on abx, ordered DVT study - negative s/p bronch 07/28/19- negative BAL cultures. - ordered CTAP with contrast showed left renal abscess - plan for surgery today /E.coli bacteremia, likely source from pyelonephritis and renal abscess Continue to treat with empiric antibiotic per ID recommendation and per outcome of the surgery /Transaminitis - Could be from severe sepsis versus and underlying chronic hepatitis C - trending down LFTs, s/p HIDA scan showed normal study - hepatitis panel showed positive hepatitis C antibody - need further outpatient follow-up / Acute pyelonephritis To be improving. Decreased leukocytosis. She remains critically ill. / Cellulites of right foot, improved with abx /Acute renal failure due to ATN from severe sepsis Creatinine was 2.2 on admission monitor renal function, Cr now stable / Malnutrition Nutrition corrected by NG tube feedings. Nutrition following /Electrolyte imbalance Hyponatremia -manage with free water with tube feeding Hypokalemia - continue to replete as needed and continue to monitor BMP Hypomagnesemia - replete as needed, continue to follow The high probability of a clinically significant, sudden or life threatening deterioration of the [pulmonary, renal, infectious, metabolic] system(s) required my full and direct attention, intervention and personal management. The aggregate critical care time was [55] minutes. This time is in addition to time spent performing reported procedures but includes the following: [X] Data Review and interpretation [X] Patient assessment and monitoring of vital signs [x] Documentation [x] Medication orders and management Patient remains critically ill, with poor outcome Brief history The patient is a 44-year-old female with bipolar disorder presented to the emergency room with right foot pain, abdominal pain and fevers. She previously presented to the emergency room on 06/28/2019 with right foot with redness and pain following a possible spider bite. She was given a prescription for oral Augmentin and was discharged home. Patient stated that she was compliant with Augmentin and also was soaking her right foot in Epsom salts. About 2-3 days prior to admission, she started developing fevers, nausea as well as worsening abdominal pain. She has presented to the emergency room and was hospitalized. She was noted to be septic,Started on empiric antibiotics. She decompensated on the floor and required intubation and transferred to ICU for further management on 07/17/2019. Also required pressors for septic shock, blood culture growing Escherichia coli bacteremia. Patient is now on Lopressor, still intubated with 40% FiO2 and high PEEP. Plan to continue wean off from vent as tolerated and complete her antibiotic regimen for bacteremia. Radiological data: CT abdomen/pelvis: 1. Mild nonspecific left-sided perinephric stranding in this patient with punctate bilateral nonobstructive nephrolithiasis. No asymmetric hydronephrosis or ureteral stone disease. 2. Complex cyst versus mass in the left ovary. Recommend nonemergent follow-up pelvic ultrasound. 3. Mild periportal edema could be related to aggressive hydration therapy. 4. Other incidental findings as outlined above on this limited noncontrast exam with mild motion artifact. Of note, there is a 5 mm nodule in the right middle lobe. Please see below recommendations. Abdomen ultrasound: 1. No gallstones, but the gallbladder wall is thickened and edematous. 2. Small bilateral pleural effusions. Hospitalist Physical General appearance: Present: no acute distress, well-nourished, other (intubated on ventilatory support and sedated) - EENT Eyes: Present: PERRL, EOM intact - Neck Neck: Present: supple, normal ROM - Respiratory Respiratory effort: labored Respiratory: bilateral: diminished, rhonchi, negative: rales, wheezing - Cardiovascular Rhythm: regular Heart Sounds: Present: S1 & S2 - Extremities Extremities: no ischemia, no edema Extremity abnormal: edema - Abdominal General gastrointestinal: soft, non-tender, non-distended, normal bowel sounds - Integumentary Integumentary: Present: clear, warm - Psychiatric Psychiatric: other (intubated on vent) - Neurologic Neurologic: other (intubated on vent) Subjective Date of service: 07/30/19 Principal diagnosis: Acute respiratory failure Interval history: Patient seen and examined Remain intubated, off pressor support, Tolerating tube feeding cont to remain febrile Discussed with Urologist, plan for nephrectomy today afternoon Discussed with patient's mother by phone and informed her about the surgery - she is agreeable Objective - Constitutional Vitals: Vital Signs - 12hr 07/29/19 07/29/19 07/29/19 23:00 23:30 23:59 Temperature 99.6 F Pulse Rate 95 H 101 H Respiratory 17 12 Rate Blood Pressure 95/59 96/59 O2 Sat by Pulse 99 Oximetry 07/30/19 07/30/19 07/30/19 00:00 00:03 00:30 Temperature Pulse Rate 100 H 98 H 100 H Respiratory 20 17 Rate Blood Pressure 92/60 92/60 91/59 O2 Sat by Pulse 100 100 99 Oximetry 07/30/19 07/30/19 07/30/19 01:00 01:30 02:00 Temperature Pulse Rate 108 H 104 H 108 H Respiratory 26 H 20 17 Rate Blood Pressure 107/68 97/59 101/62 O2 Sat by Pulse 99 100 98 Oximetry 07/30/19 07/30/19 07/30/19 02:30 03:00 03:30 Temperature Pulse Rate 106 H 107 H 107 H Respiratory 26 H 26 H 26 H Rate Blood Pressure 97/61 101/60 96/59 O2 Sat by Pulse 99 98 97 Oximetry 07/30/19 07/30/19 07/30/19 03:39 04:00 04:30 Temperature 100.9 F H 100.9 F H Pulse Rate 104 H 107 H Respiratory 26 H 26 H Rate Blood Pressure 93/54 99/64 O2 Sat by Pulse 98 99 Oximetry 07/30/19 07/30/19 07/30/19 05:00 05:30 06:00 Temperature Pulse Rate 102 H 106 H 98 H Respiratory 26 H 19 26 H Rate Blood Pressure 99/61 97/62 98/57 O2 Sat by Pulse 99 98 98 Oximetry 07/30/19 07/30/19 07/30/19 06:30 07:00 07:30 Temperature Pulse Rate 100 H 95 H 92 H Respiratory 25 H 26 H 26 H Rate Blood Pressure 97/61 96/56 97/59 O2 Sat by Pulse 99 98 100 Oximetry 07/30/19 07/30/19 07/30/19 08:00 08:26 08:30 Temperature 99.4 F Pulse Rate 94 H 95 H 95 H Respiratory 26 H 26 H Rate Blood Pressure 96/62 96/62 100/63 O2 Sat by Pulse 99 100 100 Oximetry 07/30/19 07/30/19 07/30/19 09:00 09:30 10:00 Temperature Pulse Rate 94 H 91 H 93 H Respiratory 26 H 26 H 18 Rate Blood Pressure 95/61 100/52 106/68 O2 Sat by Pulse 99 97 100 Oximetry - Labs CBC & Chem 7: 07/30/19 05:00 07/30/19 05:00 Labs: Abnormal lab results 07/29/19 07/29/19 07/29/19 Range/Units 11:56 17:38 23:30 WBC (4.5-11.0) K/mm3 RBC (3.65-5.03) M/mm3 Hgb (10.1-14.3) gm/dl Hct (30.3-42.9) % Plt Count (140-440) K/mm3 [place] % (Auto) (0.0-7.3) % Eos % (Auto) (0.0-4.3) % [place] # (0.0-0.8) K/mm3 Eos # (0.0-0.4) K/mm3 Sodium (137-145) mmol/L Chloride (98-107) mmol/L BUN (7-17) mg/dL Glucose (65-100) mg/dL POC Glucose 139 H 158 H 114 H (70-105) 07/30/19 07/30/19 07/30/19 Range/Units 05:00 05:00 05:37 WBC 11.2 H (4.5-11.0) K/mm3 RBC 3.05 L (3.65-5.03) M/mm3 Hgb 9.1 L (10.1-14.3) gm/dl Hct 27.4 L (30.3-42.9) % Plt Count 576 H (140-440) K/mm3 [place] % (Auto) 12.5 H (0.0-7.3) % Eos % (Auto) 5.2 H (0.0-4.3) % [place] # 1.4 H (0.0-0.8) K/mm3 Eos # 0.6 H (0.0-0.4) K/mm3 Sodium 136 L (137-145) mmol/L Chloride 97.1 L (98-107) mmol/L BUN 21 H (7-17) mg/dL Glucose 131 H (65-100) mg/dL POC Glucose 128 H (70-105)
[2019-07-30] MEDS ORDERED: DEXMEDETOMIDINE 400 MCG in NACL 0.9% 100 ML IV SCH (11:00)
--- NOTE | 2019-07-30 12:04 | Progress Note ---
Assessment and Plan 44 y/o female with abdominal pain found to have right sided mass vs cysts with acute vs chronic vs acute chronic renal failure, UTI and possible cellulitis of lower ext 1. ID-Several findings on the CT of chest and abdomen/pelvis. In regards to chest, feel that the changes see are more related to pulmonary edema than they are from a true infiltrative process like pneumonia. The left pleural effusion is concerning now given the changes seen in the upper pole of the left kidney. Question if that is more reactive than related to volume overload. Will speak to IMS but need to ask if urology can review the CT scan again to see if invasive therapy is needed at this time. There is an area of consolidation in the lower lobe of the left lung on the CT. She has not had worsening pulmonary status but given her persistent fevers, if pneumonia is a concern would need to broaden coverage. Results from the bronch done Saturday remain negative. Would be more concerned with renal disease as the potential cause for persistent fevers. 2. Resp-unable to do PSV as patient remains sedated. Minimal vent support. Will decrease PEEP 3. PSYCH-Continue Seroquel at 50 BID. Asked nursing to drop down the fentanyl. Added precedex with hopes of weaning off versed 4. Overall prognosis is guarded. Will continue to follow CCT 31 minutes. Subjective Date of service: 07/30/19 Principal diagnosis: Acute respiratory failure Interval history: [facility] scanned patient on yesterday. Reviewed the actual CT of chest and reviewed the reports of other areas. Spiked a temp again yesterday and remains on sedation with Fent 3 and Versed 2. No family present at bedside. Objective Vital Signs - 12hr 07/30/19 07/30/19 07/30/19 00:00 00:03 00:30 Temperature Pulse Rate 100 H 98 H 100 H Respiratory 20 17 Rate Blood Pressure 92/60 92/60 91/59 O2 Sat by Pulse 100 100 99 Oximetry 07/30/19 07/30/19 07/30/19 01:00 01:30 02:00 Temperature Pulse Rate 108 H 104 H 108 H Respiratory 26 H 20 17 Rate Blood Pressure 107/68 97/59 101/62 O2 Sat by Pulse 99 100 98 Oximetry 07/30/19 07/30/19 07/30/19 02:30 03:00 03:30 Temperature Pulse Rate 106 H 107 H 107 H Respiratory 26 H 26 H 26 H Rate Blood Pressure 97/61 101/60 96/59 O2 Sat by Pulse 99 98 97 Oximetry 07/30/19 07/30/19 07/30/19 03:39 04:00 04:30 Temperature 100.9 F H 100.9 F H Pulse Rate 104 H 107 H Respiratory 26 H 26 H Rate Blood Pressure 93/54 99/64 O2 Sat by Pulse 98 99 Oximetry 07/30/19 07/30/19 07/30/19 05:00 05:30 06:00 Temperature Pulse Rate 102 H 106 H 98 H Respiratory 26 H 19 26 H Rate Blood Pressure 99/61 97/62 98/57 O2 Sat by Pulse 99 98 98 Oximetry 07/30/19 07/30/19 07/30/19 06:30 07:00 07:30 Temperature Pulse Rate 100 H 95 H 92 H Respiratory 25 H 26 H 26 H Rate Blood Pressure 97/61 96/56 97/59 O2 Sat by Pulse 99 98 100 Oximetry 07/30/19 07/30/19 07/30/19 08:00 08:26 08:30 Temperature 99.4 F Pulse Rate 94 H 95 H 95 H Respiratory 26 H 26 H Rate Blood Pressure 96/62 96/62 100/63 O2 Sat by Pulse 99 100 100 Oximetry 07/30/19 07/30/19 07/30/19 09:00 09:30 10:00 Temperature Pulse Rate 94 H 91 H 93 H Respiratory 26 H 26 H 18 Rate Blood Pressure 95/61 100/52 106/68 O2 Sat by Pulse 99 97 100 Oximetry 07/30/19 07/30/19 07/30/19 10:30 11:00 11:30 Temperature Pulse Rate 93 H 89 89 Respiratory 26 H 26 H 26 H Rate Blood Pressure 92/54 92/55 89/59 O2 Sat by Pulse 99 98 99 Oximetry Constitutional: other (sedated, critically ill on ventilator. Opens eyes to tactile stimule) Eyes: non-icteric ENT: other (orally intubated and sedated) Neck: supple Effort: normal Ascultation: Bilateral: rales, other (coarse equal BS bilaterally) Percussion: Bilateral: not dull Cardiovascular: regular rate and rhythm (sinus tach) Gastrointestinal: normoactive bowel sounds, soft, non-tender, non-distended Integumentary: normal Extremities: no cyanosis, no edema, pink and warm Neurologic: non-focal exam, other (sedated opens eyes to tactile stimuli) Psychiatric: other (unable to obtain) CBC and BMP: 07/30/19 05:00 07/30/19 05:00 ABG, PT/INR, D-dimer: ABG POC ABG pH 7.460 (7.35-7.45) H 07/27/19 06:29 ABG pH 7.453 pH Units (7.350-7.450) H 07/29/19 03:50 POC ABG pCO2 42.4 (35-45) 07/27/19 06:29 ABG pCO2 42.4 mm Hg 07/29/19 03:50 POC ABG pO2 60 (80-105) L 07/27/19 06:29 ABG pO2 89.9 mm Hg (80.0-90.0) 07/29/19 03:50 POC ABG HCO3 30.1 (22-26 mml/L) 07/27/19 06:29 POC ABG Total CO2 31 (23-27mmol/L) 07/27/19 06:29 POC ABG O2 Sat 92 07/27/19 06:29 ABG O2 Saturation 97.3 % (95.0-99.0) 07/29/19 03:50 PT/INR, D-dimer PT 16.3 Sec. (12.2-14.9) H 07/16/19 05:47 INR 1.35 (0.87-1.13) H 07/16/19 05:47 Abnormal lab findings: Abnormal Labs 07/16/19 07/16/19 07/16/19 02:01 02:01 02:01 WBC 11.7 H RBC Hgb Hct RDW Plt Count 101 L [place] % (Auto) Eos % (Auto) [place] # Eos # Seg Neutrophils % Seg Neuts % (Manual) 92.0 H Lymphocytes % (Manual) 5.0 L Monocytes % (Manual) Eosinophils % (Manual) Seg Neutrophils # Seg Neutrophils # Man 10.8 H Lymphocytes # (Manual) 0.6 L Monocytes # (Manual) Eosinophils # (Manual) PT 15.2 H INR 1.23 H POC ABG pH ABG pH POC ABG pCO2 POC ABG pO2 ABG pO2 ABG HCO3 ABG O2 Saturation ABG Base Excess ABG Hemoglobin Oxyhemoglobin Sodium Potassium Chloride Carbon Dioxide 18 L BUN 46 H Creatinine 2.2 H Glucose 116 H POC Glucose Lactic Acid Calcium Phosphorus Magnesium Total Bilirubin Direct Bilirubin AST 63 H ALT 125 H Alkaline Phosphatase Total Protein 6.2 L Albumin 2.8 L Lipase Urine WBC (Auto) U Epithel Cells (Auto) Urine Creatinine Hepatitis C Antibody 07/16/19 07/16/19 07/16/19 02:16 02:43 04:07 WBC RBC Hgb Hct RDW Plt Count [place] % (Auto) Eos % (Auto) [place] # Eos # Seg Neutrophils % Seg Neuts % (Manual) Lymphocytes % (Manual) Monocytes % (Manual) Eosinophils % (Manual) Seg Neutrophils # Seg Neutrophils # Man Lymphocytes # (Manual) Monocytes # (Manual) Eosinophils # (Manual) PT INR POC ABG pH ABG pH POC ABG pCO2 POC ABG pO2 ABG pO2 ABG HCO3 ABG O2 Saturation ABG Base Excess ABG Hemoglobin Oxyhemoglobin Sodium Potassium Chloride Carbon Dioxide BUN Creatinine Glucose POC Glucose Lactic Acid 2.10 H* 2.30 H* Calcium Phosphorus Magnesium Total Bilirubin Direct Bilirubin AST ALT Alkaline Phosphatase Total Protein Albumin Lipase 6 L Urine WBC (Auto) U Epithel Cells (Auto) Urine Creatinine Hepatitis C Antibody 07/16/19 07/16/19 07/16/19 05:47 05:59 14:30 WBC RBC Hgb Hct RDW Plt Count [place] % (Auto) Eos % (Auto) [place] # Eos # Seg Neutrophils % Seg Neuts % (Manual) Lymphocytes % (Manual) Monocytes % (Manual) Eosinophils % (Manual) Seg Neutrophils # Seg Neutrophils # Man Lymphocytes # (Manual) Monocytes # (Manual) Eosinophils # (Manual) PT 16.3 H INR 1.35 H POC ABG pH ABG pH POC ABG pCO2 POC ABG pO2 ABG pO2 ABG HCO3 ABG O2 Saturation ABG Base Excess ABG Hemoglobin Oxyhemoglobin Sodium Potassium Chloride Carbon Dioxide BUN Creatinine Glucose POC Glucose Lactic Acid Calcium Phosphorus Magnesium Total Bilirubin Direct Bilirubin AST ALT Alkaline Phosphatase Total Protein Albumin Lipase Urine WBC (Auto) > 182.0 H U Epithel Cells (Auto) 21.0 H Urine Creatinine 76.6 H Hepatitis C Antibody 07/16/19 07/17/19 07/17/19 23:27 00:03 00:03 WBC RBC Hgb Hct RDW Plt Count [place] % (Auto) Eos % (Auto) [place] # Eos # Seg Neutrophils % Seg Neuts % (Manual) Lymphocytes % (Manual) Monocytes % (Manual) Eosinophils % (Manual) Seg Neutrophils # Seg Neutrophils # Man Lymphocytes # (Manual) Monocytes # (Manual) Eosinophils # (Manual) PT INR POC ABG pH 7.093 L ABG pH POC ABG pCO2 32.8 L POC ABG pO2 66 L ABG pO2 ABG HCO3 ABG O2 Saturation ABG Base Excess ABG Hemoglobin Oxyhemoglobin Sodium 148 H D Potassium Chloride 120.5 H Carbon Dioxide 14 L BUN 35 H Creatinine 1.5 H Glucose 42 L POC Glucose Lactic Acid 2.90 H* Calcium 5.7 L* D Phosphorus Magnesium Total Bilirubin Direct Bilirubin AST ALT Alkaline Phosphatase Total Protein Albumin Lipase Urine WBC (Auto) U Epithel Cells (Auto) Urine Creatinine Hepatitis C Antibody 07/17/19 07/17/19 07/17/19 03:01 03:29 03:40 WBC 13.2 H RBC Hgb Hct RDW Plt Count 116 L [place] % (Auto) Eos % (Auto) [place] # Eos # Seg Neutrophils % Seg Neuts % (Manual) Lymphocytes % (Manual) 9.0 L Monocytes % (Manual) Eosinophils % (Manual) 24.0 H Seg Neutrophils # Seg Neutrophils # Man 8.6 H Lymphocytes # (Manual) Monocytes # (Manual) Eosinophils # (Manual) 3.2 H PT INR POC ABG pH 6.981 L ABG pH POC ABG pCO2 55.6 H POC ABG pO2 ABG pO2 ABG HCO3 ABG O2 Saturation ABG Base Excess ABG Hemoglobin Oxyhemoglobin Sodium Potassium Chloride Carbon Dioxide BUN Creatinine Glucose POC Glucose 64 L Lactic Acid Calcium Phosphorus Magnesium Total Bilirubin Direct Bilirubin AST ALT Alkaline Phosphatase Total Protein Albumin Lipase Urine WBC (Auto) U Epithel Cells (Auto) Urine Creatinine Hepatitis C Antibody 07/17/19 07/17/19 07/17/19 03:40 03:40 04:08 WBC RBC Hgb Hct RDW Plt Count [place] % (Auto) Eos % (Auto) [place] # Eos # Seg Neutrophils % Seg Neuts % (Manual) Lymphocytes % (Manual) Monocytes % (Manual) Eosinophils % (Manual) Seg Neutrophils # Seg Neutrophils # Man Lymphocytes # (Manual) Monocytes # (Manual) Eosinophils # (Manual) PT INR POC ABG pH 7.056 L ABG pH POC ABG pCO2 POC ABG pO2 63 L ABG pO2 ABG HCO3 ABG O2 Saturation ABG Base Excess ABG Hemoglobin Oxyhemoglobin Sodium 147 H Potassium Chloride 120.2 H Carbon Dioxide 14 L BUN 36 H Creatinine 1.6 H Glucose POC Glucose Lactic Acid 3.20 H* Calcium 6.0 L Phosphorus Magnesium Total Bilirubin Direct Bilirubin AST ALT Alkaline Phosphatase Total Protein Albumin Lipase Urine WBC (Auto) U Epithel Cells (Auto) Urine Creatinine Hepatitis C Antibody 07/17/19 07/17/19 07/17/19 05:33 05:45 06:51 WBC RBC Hgb Hct RDW Plt Count [place] % (Auto) Eos % (Auto) [place] # Eos # Seg Neutrophils % Seg Neuts % (Manual) Lymphocytes % (Manual) Monocytes % (Manual) Eosinophils % (Manual) Seg Neutrophils # Seg Neutrophils # Man Lymphocytes # (Manual) Monocytes # (Manual) Eosinophils # (Manual) PT INR POC ABG pH 7.061 L ABG pH POC ABG pCO2 49.0 H POC ABG pO2 ABG pO2 ABG HCO3 ABG O2 Saturation ABG Base Excess ABG Hemoglobin Oxyhemoglobin Sodium Potassium Chloride Carbon Dioxide BUN Creatinine Glucose POC Glucose 64 L 239 H Lactic Acid Calcium Phosphorus Magnesium Total Bilirubin Direct Bilirubin AST ALT Alkaline Phosphatase Total Protein Albumin Lipase Urine WBC (Auto) U Epithel Cells (Auto) Urine Creatinine Hepatitis C Antibody 07/17/19 07/17/19 07/17/19 10:57 12:56 18:11 WBC RBC Hgb Hct RDW Plt Count [place] % (Auto) Eos % (Auto) [place] # Eos # Seg Neutrophils % Seg Neuts % (Manual) Lymphocytes % (Manual) Monocytes % (Manual) Eosinophils % (Manual) Seg Neutrophils # Seg Neutrophils # Man Lymphocytes # (Manual) Monocytes # (Manual) Eosinophils # (Manual) PT INR POC ABG pH ABG pH 7.192 L* POC ABG pCO2 POC ABG pO2 ABG pO2 67.5 L ABG HCO3 16.3 L ABG O2 Saturation 92.6 L ABG Base Excess -11.4 L ABG Hemoglobin Oxyhemoglobin 91.1 L Sodium Potassium Chloride Carbon Dioxide BUN Creatinine Glucose POC Glucose 107 H 122 H Lactic Acid Calcium Phosphorus Magnesium Total Bilirubin Direct Bilirubin AST ALT Alkaline Phosphatase Total Protein Albumin Lipase Urine WBC (Auto) U Epithel Cells (Auto) Urine Creatinine Hepatitis C Antibody 07/17/19 07/17/19 07/18/19 23:34 Unknown 04:00 WBC RBC Hgb Hct RDW Plt Count 85 L [place] % (Auto) Eos % (Auto) [place] # Eos # Seg Neutrophils % Seg Neuts % (Manual) 82.0 H Lymphocytes % (Manual) 2.0 L Monocytes % (Manual) 12.0 H Eosinophils % (Manual) Seg Neutrophils # Seg Neutrophils # Man Lymphocytes # (Manual) 0.2 L Monocytes # (Manual) 1.1 H Eosinophils # (Manual) PT INR POC ABG pH ABG pH 7.237 L POC ABG pCO2 POC ABG pO2 ABG pO2 142.4 H ABG HCO3 17.0 L ABG O2 Saturation ABG Base Excess -9.8 L ABG Hemoglobin Oxyhemoglobin Sodium Potassium Chloride Carbon Dioxide BUN Creatinine Glucose POC Glucose 136 H Lactic Acid Calcium Phosphorus Magnesium Total Bilirubin Direct Bilirubin AST ALT Alkaline Phosphatase Total Protein Albumin Lipase Urine WBC (Auto) U Epithel Cells (Auto) Urine Creatinine Hepatitis C Antibody 07/18/19 07/18/19 07/18/19 04:00 05:31 05:51 WBC RBC Hgb Hct RDW Plt Count [place] % (Auto) Eos % (Auto) [place] # Eos # Seg Neutrophils % Seg Neuts % (Manual) Lymphocytes % (Manual) Monocytes % (Manual) Eosinophils % (Manual) Seg Neutrophils # Seg Neutrophils # Man Lymphocytes # (Manual) Monocytes # (Manual) Eosinophils # (Manual) PT INR POC ABG pH 7.239 L ABG pH POC ABG pCO2 56.9 H POC ABG pO2 ABG pO2 ABG HCO3 ABG O2 Saturation ABG Base Excess ABG Hemoglobin Oxyhemoglobin Sodium 151 H Potassium 3.2 L D Chloride 114.7 H Carbon Dioxide BUN 42 H Creatinine 2.1 H Glucose 130 H POC Glucose 135 H Lactic Acid Calcium 6.0 L Phosphorus Magnesium Total Bilirubin 2.10 H Direct Bilirubin AST 59 H ALT 62 H Alkaline Phosphatase Total Protein 4.8 L D Albumin 2.0 L Lipase Urine WBC (Auto) U Epithel Cells (Auto) Urine Creatinine Hepatitis C Antibody 07/18/19 07/18/19 07/18/19 12:05 18:30 23:40 WBC RBC Hgb Hct RDW Plt Count [place] % (Auto) Eos % (Auto) [place] # Eos # Seg Neutrophils % Seg Neuts % (Manual) Lymphocytes % (Manual) Monocytes % (Manual) Eosinophils % (Manual) Seg Neutrophils # Seg Neutrophils # Man Lymphocytes # (Manual) Monocytes # (Manual) Eosinophils # (Manual) PT INR POC ABG pH ABG pH POC ABG pCO2 POC ABG pO2 ABG pO2 ABG HCO3 ABG O2 Saturation ABG Base Excess ABG Hemoglobin Oxyhemoglobin Sodium Potassium Chloride Carbon Dioxide BUN Creatinine Glucose POC Glucose 126 H 131 H 163 H Lactic Acid Calcium Phosphorus Magnesium Total Bilirubin Direct Bilirubin AST ALT Alkaline Phosphatase Total Protein Albumin Lipase Urine WBC (Auto) U Epithel Cells (Auto) Urine Creatinine Hepatitis C Antibody 07/19/19 07/19/19 07/19/19 03:35 04:57 08:15 WBC 11.1 H RBC 3.64 L Hgb Hct RDW Plt Count 71 L [place] % (Auto) Eos % (Auto) [place] # Eos # Seg Neutrophils % Seg Neuts % (Manual) Lymphocytes % (Manual) Monocytes % (Manual) Eosinophils % (Manual) Seg Neutrophils # Seg Neutrophils # Man Lymphocytes # (Manual) Monocytes # (Manual) Eosinophils # (Manual) PT INR POC ABG pH ABG pH 7.296 L POC ABG pCO2 POC ABG pO2 ABG pO2 78.7 L ABG HCO3 26.4 H ABG O2 Saturation ABG Base Excess ABG Hemoglobin 11.1 L Oxyhemoglobin 93.3 L Sodium Potassium Chloride Carbon Dioxide BUN Creatinine Glucose POC Glucose 170 H Lactic Acid Calcium Phosphorus Magnesium Total Bilirubin Direct Bilirubin AST ALT Alkaline Phosphatase Total Protein Albumin Lipase Urine WBC (Auto) U Epithel Cells (Auto) Urine Creatinine Hepatitis C Antibody 07/19/19 07/19/19 07/19/19 08:15 12:34 18:32 WBC RBC Hgb Hct RDW Plt Count [place] % (Auto) Eos % (Auto) [place] # Eos # Seg Neutrophils % Seg Neuts % (Manual) Lymphocytes % (Manual) Monocytes % (Manual) Eosinophils % (Manual) Seg Neutrophils # Seg Neutrophils # Man Lymphocytes # (Manual) Monocytes # (Manual) Eosinophils # (Manual) PT INR POC ABG pH ABG pH POC ABG pCO2 POC ABG pO2 ABG pO2 ABG HCO3 ABG O2 Saturation ABG Base Excess ABG Hemoglobin Oxyhemoglobin Sodium 146 H Potassium 2.9 L* Chloride 107.9 H Carbon Dioxide BUN 35 H Creatinine 1.5 H Glucose 156 H POC Glucose 160 H 138 H Lactic Acid Calcium 6.6 L Phosphorus Magnesium Total Bilirubin Direct Bilirubin AST ALT Alkaline Phosphatase Total Protein Albumin Lipase Urine WBC (Auto) U Epithel Cells (Auto) Urine Creatinine Hepatitis C Antibody 07/19/19 07/19/19 07/20/19 23:41 Unknown 04:20 WBC RBC Hgb Hct RDW Plt Count [place] % (Auto) Eos % (Auto) [place] # Eos # Seg Neutrophils % Seg Neuts % (Manual) Lymphocytes % (Manual) Monocytes % (Manual) Eosinophils % (Manual) Seg Neutrophils # Seg Neutrophils # Man Lymphocytes # (Manual) Monocytes # (Manual) Eosinophils # (Manual) PT INR POC ABG pH ABG pH 7.316 L POC ABG pCO2 POC ABG pO2 ABG pO2 ABG HCO3 27.9 H ABG O2 Saturation ABG Base Excess ABG Hemoglobin Oxyhemoglobin 94.0 L Sodium 149 H Potassium 3.2 L Chloride 112.3 H Carbon Dioxide BUN 34 H Creatinine Glucose 162 H POC Glucose 145 H Lactic Acid Calcium 7.0 L Phosphorus Magnesium 1.50 L Total Bilirubin Direct Bilirubin AST ALT Alkaline Phosphatase Total Protein Albumin Lipase Urine WBC (Auto) U Epithel Cells (Auto) Urine Creatinine Hepatitis C Antibody 07/20/19 07/20/19 07/20/19 05:25 07:50 07:50 WBC 12.6 H RBC 3.51 L Hgb Hct RDW Plt Count 56 L [place] % (Auto) Eos % (Auto) [place] # Eos # Seg Neutrophils % Seg Neuts % (Manual) 89.0 H Lymphocytes % (Manual) 5.0 L Monocytes % (Manual) Eosinophils % (Manual) Seg Neutrophils # Seg Neutrophils # Man 11.2 H Lymphocytes # (Manual) 0.6 L Monocytes # (Manual) Eosinophils # (Manual) PT INR POC ABG pH ABG pH POC ABG pCO2 POC ABG pO2 ABG pO2 ABG HCO3 ABG O2 Saturation ABG Base Excess ABG Hemoglobin Oxyhemoglobin Sodium 151 H Potassium 3.4 L Chloride 114.7 H Carbon Dioxide 31 H BUN 30 H Creatinine Glucose 148 H POC Glucose 141 H Lactic Acid Calcium 7.3 L Phosphorus Magnesium Total Bilirubin Direct Bilirubin AST ALT Alkaline Phosphatase Total Protein Albumin Lipase Urine WBC (Auto) U Epithel Cells (Auto) Urine Creatinine Hepatitis C Antibody 07/20/19 07/20/19 07/20/19 15:47 17:25 23:57 WBC RBC Hgb Hct RDW Plt Count [place] % (Auto) Eos % (Auto) [place] # Eos # Seg Neutrophils % Seg Neuts % (Manual) Lymphocytes % (Manual) Monocytes % (Manual) Eosinophils % (Manual) Seg Neutrophils # Seg Neutrophils # Man Lymphocytes # (Manual) Monocytes # (Manual) Eosinophils # (Manual) PT INR POC ABG pH ABG pH POC ABG pCO2 POC ABG pO2 ABG pO2 ABG HCO3 ABG O2 Saturation ABG Base Excess ABG Hemoglobin Oxyhemoglobin Sodium Potassium Chloride Carbon Dioxide BUN Creatinine Glucose POC Glucose 160 H 165 H 122 H Lactic Acid Calcium Phosphorus Magnesium Total Bilirubin Direct Bilirubin AST ALT Alkaline Phosphatase Total Protein Albumin Lipase Urine WBC (Auto) U Epithel Cells (Auto) Urine Creatinine Hepatitis C Antibody 07/21/19 07/21/19 07/21/19 05:00 05:00 05:00 WBC 15.8 H RBC Hgb Hct RDW Plt Count 56 L [place] % (Auto) Eos % (Auto) [place] # Eos # Seg Neutrophils % Seg Neuts % (Manual) Lymphocytes % (Manual) Monocytes % (Manual) Eosinophils % (Manual) Seg Neutrophils # Seg Neutrophils # Man Lymphocytes # (Manual) Monocytes # (Manual) Eosinophils # (Manual) PT INR POC ABG pH ABG pH POC ABG pCO2 POC ABG pO2 ABG pO2 ABG HCO3 ABG O2 Saturation ABG Base Excess ABG Hemoglobin Oxyhemoglobin Sodium 147 H Potassium 3.5 L Chloride 111.4 H Carbon Dioxide BUN 21 H Creatinine Glucose 107 H POC Glucose Lactic Acid Calcium 7.6 L Phosphorus 1.60 L Magnesium Total Bilirubin 4.80 H Direct Bilirubin AST 48 H ALT Alkaline Phosphatase 131 H Total Protein 4.3 L Albumin 1.5 L Lipase Urine WBC (Auto) U Epithel Cells (Auto) Urine Creatinine Hepatitis C Antibody 07/21/19 07/21/19 07/21/19 05:34 12:12 18:22 WBC RBC Hgb Hct RDW Plt Count [place] % (Auto) Eos % (Auto) [place] # Eos # Seg Neutrophils % Seg Neuts % (Manual) Lymphocytes % (Manual) Monocytes % (Manual) Eosinophils % (Manual) Seg Neutrophils # Seg Neutrophils # Man Lymphocytes # (Manual) Monocytes # (Manual) Eosinophils # (Manual) PT INR POC ABG pH ABG pH POC ABG pCO2 POC ABG pO2 ABG pO2 ABG HCO3 ABG O2 Saturation ABG Base Excess ABG Hemoglobin Oxyhemoglobin Sodium Potassium Chloride Carbon Dioxide BUN Creatinine Glucose POC Glucose 119 H 108 H 125 H Lactic Acid Calcium Phosphorus Magnesium Total Bilirubin Direct Bilirubin AST ALT Alkaline Phosphatase Total Protein Albumin Lipase Urine WBC (Auto) U Epithel Cells (Auto) Urine Creatinine Hepatitis C Antibody 07/21/19 07/21/19 07/22/19 23:27 Unknown 04:25 WBC RBC Hgb Hct RDW Plt Count [place] % (Auto) Eos % (Auto) [place] # Eos # Seg Neutrophils % Seg Neuts % (Manual) Lymphocytes % (Manual) Monocytes % (Manual) Eosinophils % (Manual) Seg Neutrophils # Seg Neutrophils # Man Lymphocytes # (Manual) Monocytes # (Manual) Eosinophils # (Manual) PT INR POC ABG pH ABG pH POC ABG pCO2 POC ABG pO2 ABG pO2 61.9 L 68.7 L ABG HCO3 28.9 H 29.1 H ABG O2 Saturation 93.5 L 94.4 L ABG Base Excess 3.5 H ABG Hemoglobin 10.8 L 11.5 L Oxyhemoglobin 91.6 L 92.3 L Sodium Potassium Chloride Carbon Dioxide BUN Creatinine Glucose POC Glucose 126 H Lactic Acid Calcium Phosphorus Magnesium Total Bilirubin Direct Bilirubin AST ALT Alkaline Phosphatase Total Protein Albumin Lipase Urine WBC (Auto) U Epithel Cells (Auto) Urine Creatinine Hepatitis C Antibody 07/22/19 07/22/19 07/22/19 05:25 07:00 07:00 WBC 14.9 H RBC Hgb Hct RDW Plt Count 87 L [place] % (Auto) Eos % (Auto) [place] # Eos # Seg Neutrophils % Seg Neuts % (Manual) Lymphocytes % (Manual) Monocytes % (Manual) Eosinophils % (Manual) Seg Neutrophils # Seg Neutrophils # Man Lymphocytes # (Manual) Monocytes # (Manual) Eosinophils # (Manual) PT INR POC ABG pH ABG pH POC ABG pCO2 POC ABG pO2 ABG pO2 ABG HCO3 ABG O2 Saturation ABG Base Excess ABG Hemoglobin Oxyhemoglobin Sodium 147 H Potassium 3.3 L Chloride 110.9 H Carbon Dioxide BUN Creatinine 0.6 L Glucose 107 H POC Glucose 107 H Lactic Acid Calcium 7.5 L Phosphorus Magnesium Total Bilirubin Direct Bilirubin AST ALT Alkaline Phosphatase Total Protein Albumin Lipase Urine WBC (Auto) U Epithel Cells (Auto) Urine Creatinine Hepatitis C Antibody 07/22/19 07/22/19 07/23/19 17:41 23:40 04:50 WBC RBC Hgb Hct RDW Plt Count [place] % (Auto) Eos % (Auto) [place] # Eos # Seg Neutrophils % Seg Neuts % (Manual) Lymphocytes % (Manual) Monocytes % (Manual) Eosinophils % (Manual) Seg Neutrophils # Seg Neutrophils # Man Lymphocytes # (Manual) Monocytes # (Manual) Eosinophils # (Manual) PT INR POC ABG pH ABG pH POC ABG pCO2 POC ABG pO2 ABG pO2 ABG HCO3 ABG O2 Saturation ABG Base Excess ABG Hemoglobin Oxyhemoglobin Sodium Potassium Chloride Carbon Dioxide BUN Creatinine 0.6 L Glucose 102 H POC Glucose 132 H 123 H Lactic Acid Calcium 7.8 L Phosphorus Magnesium 1.50 L Total Bilirubin Direct Bilirubin AST ALT Alkaline Phosphatase Total Protein Albumin Lipase Urine WBC (Auto) U Epithel Cells (Auto) Urine Creatinine Hepatitis C Antibody 07/23/19 07/23/19 07/23/19 05:00 10:50 10:50 WBC 13.0 H RBC 3.41 L Hgb Hct RDW Plt Count 100 L [place] % (Auto) Eos % (Auto) [place] # Eos # Seg Neutrophils % Seg Neuts % (Manual) Lymphocytes % (Manual) Monocytes % (Manual) Eosinophils % (Manual) Seg Neutrophils # Seg Neutrophils # Man Lymphocytes # (Manual) Monocytes # (Manual) Eosinophils # (Manual) PT INR POC ABG pH ABG pH POC ABG pCO2 POC ABG pO2 ABG pO2 100.4 H ABG HCO3 28.7 H ABG O2 Saturation ABG Base Excess ABG Hemoglobin 11.0 L Oxyhemoglobin Sodium Potassium Chloride Carbon Dioxide BUN Creatinine Glucose POC Glucose Lactic Acid Calcium Phosphorus Magnesium Total Bilirubin 2.60 H Direct Bilirubin 2.2 H AST 41 H ALT Alkaline Phosphatase Total Protein 4.4 L Albumin 1.4 L Lipase Urine WBC (Auto) U Epithel Cells (Auto) Urine Creatinine Hepatitis C Antibody 07/23/19 07/23/19 07/23/19 11:49 11:49 17:42 WBC RBC Hgb Hct RDW Plt Count [place] % (Auto) Eos % (Auto) [place] # Eos # Seg Neutrophils % Seg Neuts % (Manual) Lymphocytes % (Manual) Monocytes % (Manual) Eosinophils % (Manual) Seg Neutrophils # Seg Neutrophils # Man Lymphocytes # (Manual) Monocytes # (Manual) Eosinophils # (Manual) PT INR POC ABG pH ABG pH POC ABG pCO2 POC ABG pO2 ABG pO2 ABG HCO3 ABG O2 Saturation ABG Base Excess ABG Hemoglobin Oxyhemoglobin Sodium Potassium Chloride Carbon Dioxide BUN Creatinine Glucose POC Glucose 109 H 124 H Lactic Acid Calcium Phosphorus Magnesium Total Bilirubin Direct Bilirubin AST ALT Alkaline Phosphatase Total Protein Albumin Lipase Urine WBC (Auto) U Epithel Cells (Auto) Urine Creatinine Hepatitis C Antibody Reactive A 07/23/19 07/24/19 07/24/19 23:37 03:34 03:34 WBC 13.7 H RBC 3.39 L Hgb Hct 29.9 L RDW Plt Count 116 L [place] % (Auto) Eos % (Auto) [place] # Eos # Seg Neutrophils % 77.7 H Seg Neuts % (Manual) Lymphocytes % (Manual) Monocytes % (Manual) Eosinophils % (Manual) Seg Neutrophils # 10.6 H Seg Neutrophils # Man Lymphocytes # (Manual) Monocytes # (Manual) Eosinophils # (Manual) PT INR POC ABG pH ABG pH POC ABG pCO2 POC ABG pO2 ABG pO2 ABG HCO3 ABG O2 Saturation ABG Base Excess ABG Hemoglobin Oxyhemoglobin Sodium Potassium 3.3 L Chloride Carbon Dioxide 35 H BUN Creatinine 0.6 L Glucose 139 H POC Glucose 145 H Lactic Acid Calcium 7.7 L Phosphorus Magnesium Total Bilirubin Direct Bilirubin AST ALT Alkaline Phosphatase Total Protein Albumin Lipase Urine WBC (Auto) U Epithel Cells (Auto) Urine Creatinine Hepatitis C Antibody 07/24/19 07/24/19 07/24/19 04:50 05:11 11:29 WBC RBC Hgb Hct RDW Plt Count [place] % (Auto) Eos % (Auto) [place] # Eos # Seg Neutrophils % Seg Neuts % (Manual) Lymphocytes % (Manual) Monocytes % (Manual) Eosinophils % (Manual) Seg Neutrophils # Seg Neutrophils # Man Lymphocytes # (Manual) Monocytes # (Manual) Eosinophils # (Manual) PT INR POC ABG pH ABG pH 7.457 H POC ABG pCO2 POC ABG pO2 ABG pO2 138.3 H ABG HCO3 32.1 H ABG O2 Saturation ABG Base Excess 7.4 H ABG Hemoglobin 8.2 L Oxyhemoglobin Sodium Potassium Chloride Carbon Dioxide BUN Creatinine Glucose POC Glucose 128 H 123 H Lactic Acid Calcium Phosphorus Magnesium Total Bilirubin Direct Bilirubin AST ALT Alkaline Phosphatase Total Protein Albumin Lipase Urine WBC (Auto) U Epithel Cells (Auto) Urine Creatinine Hepatitis C Antibody 07/24/19 07/24/19 07/25/19 17:50 23:39 04:09 WBC 12.5 H RBC 3.13 L Hgb 9.3 L Hct 27.7 L RDW Plt Count [place] % (Auto) Eos % (Auto) [place] # Eos # Seg Neutrophils % 77.2 H Seg Neuts % (Manual) Lymphocytes % (Manual) Monocytes % (Manual) Eosinophils % (Manual) Seg Neutrophils # 9.6 H Seg Neutrophils # Man Lymphocytes # (Manual) Monocytes # (Manual) Eosinophils # (Manual) PT INR POC ABG pH ABG pH POC ABG pCO2 POC ABG pO2 ABG pO2 ABG HCO3 ABG O2 Saturation ABG Base Excess ABG Hemoglobin Oxyhemoglobin Sodium Potassium Chloride Carbon Dioxide BUN Creatinine Glucose POC Glucose 125 H 144 H Lactic Acid Calcium Phosphorus Magnesium Total Bilirubin Direct Bilirubin AST ALT Alkaline Phosphatase Total Protein Albumin Lipase Urine WBC (Auto) U Epithel Cells (Auto) Urine Creatinine Hepatitis C Antibody 07/25/19 07/25/19 07/25/19 04:09 05:12 05:29 WBC RBC Hgb Hct RDW Plt Count [place] % (Auto) Eos % (Auto) [place] # Eos # Seg Neutrophils % Seg Neuts % (Manual) Lymphocytes % (Manual) Monocytes % (Manual) Eosinophils % (Manual) Seg Neutrophils # Seg Neutrophils # Man Lymphocytes # (Manual) Monocytes # (Manual) Eosinophils # (Manual) PT INR POC ABG pH ABG pH POC ABG pCO2 POC ABG pO2 ABG pO2 65.7 L ABG HCO3 33.6 H ABG O2 Saturation 92.8 L ABG Base Excess 7.9 H ABG Hemoglobin 11.9 L Oxyhemoglobin 90.7 L Sodium Potassium 3.1 L Chloride Carbon Dioxide 34 H BUN Creatinine 0.6 L Glucose 159 H POC Glucose 168 H Lactic Acid Calcium 7.5 L Phosphorus Magnesium Total Bilirubin 1.30 H Direct Bilirubin AST ALT Alkaline Phosphatase Total Protein 4.8 L Albumin 1.4 L Lipase Urine WBC (Auto) U Epithel Cells (Auto) Urine Creatinine Hepatitis C Antibody 07/25/19 07/25/19 07/26/19 11:34 23:30 04:25 WBC RBC Hgb Hct RDW Plt Count [place] % (Auto) Eos % (Auto) [place] # Eos # Seg Neutrophils % Seg Neuts % (Manual) Lymphocytes % (Manual) Monocytes % (Manual) Eosinophils % (Manual) Seg Neutrophils # Seg Neutrophils # Man Lymphocytes # (Manual) Monocytes # (Manual) Eosinophils # (Manual) PT INR POC ABG pH ABG pH POC ABG pCO2 POC ABG pO2 ABG pO2 101.9 H ABG HCO3 32.0 H ABG O2 Saturation ABG Base Excess 6.5 H ABG Hemoglobin 9.9 L Oxyhemoglobin Sodium Potassium Chloride Carbon Dioxide BUN Creatinine Glucose POC Glucose 124 H 126 H Lactic Acid Calcium Phosphorus Magnesium Total Bilirubin Direct Bilirubin AST ALT Alkaline Phosphatase Total Protein Albumin Lipase Urine WBC (Auto) U Epithel Cells (Auto) Urine Creatinine Hepatitis C Antibody 07/26/19 07/26/19 07/26/19 05:00 05:00 05:38 WBC 12.3 H RBC 3.11 L Hgb 9.2 L Hct 28.2 L RDW 15.4 H Plt Count [place] % (Auto) 7.8 H Eos % (Auto) [place] # 1.0 H Eos # Seg Neutrophils % 73.0 H Seg Neuts % (Manual) Lymphocytes % (Manual) Monocytes % (Manual) Eosinophils % (Manual) Seg Neutrophils # 8.9 H Seg Neutrophils # Man Lymphocytes # (Manual) Monocytes # (Manual) Eosinophils # (Manual) PT INR POC ABG pH ABG pH POC ABG pCO2 POC ABG pO2 ABG pO2 ABG HCO3 ABG O2 Saturation ABG Base Excess ABG Hemoglobin Oxyhemoglobin Sodium Potassium Chloride Carbon Dioxide 32 H BUN Creatinine Glucose 135 H POC Glucose 145 H Lactic Acid Calcium 7.9 L Phosphorus Magnesium Total Bilirubin Direct Bilirubin AST ALT Alkaline Phosphatase Total Protein Albumin Lipase Urine WBC (Auto) U Epithel Cells (Auto) Urine Creatinine Hepatitis C Antibody 07/26/19 07/26/19 07/26/19 11:16 17:55 23:26 WBC RBC Hgb Hct RDW Plt Count [place] % (Auto) Eos % (Auto) [place] # Eos # Seg Neutrophils % Seg Neuts % (Manual) Lymphocytes % (Manual) Monocytes % (Manual) Eosinophils % (Manual) Seg Neutrophils # Seg Neutrophils # Man Lymphocytes # (Manual) Monocytes # (Manual) Eosinophils # (Manual) PT INR POC ABG pH ABG pH POC ABG pCO2 POC ABG pO2 ABG pO2 ABG HCO3 ABG O2 Saturation ABG Base Excess ABG Hemoglobin Oxyhemoglobin Sodium Potassium Chloride Carbon Dioxide BUN Creatinine Glucose POC Glucose 140 H 123 H 128 H Lactic Acid Calcium Phosphorus Magnesium Total Bilirubin Direct Bilirubin AST ALT Alkaline Phosphatase Total Protein Albumin Lipase Urine WBC (Auto) U Epithel Cells (Auto) Urine Creatinine Hepatitis C Antibody 07/27/19 07/27/19 07/27/19 05:29 05:40 05:40 WBC 13.2 H RBC 3.26 L Hgb 9.6 L Hct 29.5 L RDW Plt Count [place] % (Auto) Eos % (Auto) [place] # 0.9 H Eos # Seg Neutrophils % 73.6 H Seg Neuts % (Manual) Lymphocytes % (Manual) Monocytes % (Manual) Eosinophils % (Manual) Seg Neutrophils # 9.7 H Seg Neutrophils # Man Lymphocytes # (Manual) Monocytes # (Manual) Eosinophils # (Manual) PT INR POC ABG pH ABG pH POC ABG pCO2 POC ABG pO2 ABG pO2 ABG HCO3 ABG O2 Saturation ABG Base Excess ABG Hemoglobin Oxyhemoglobin Sodium Potassium Chloride Carbon Dioxide BUN Creatinine 0.6 L Glucose 136 H POC Glucose 143 H Lactic Acid Calcium 8.2 L Phosphorus Magnesium Total Bilirubin Direct Bilirubin AST ALT Alkaline Phosphatase Total Protein Albumin Lipase Urine WBC (Auto) U Epithel Cells (Auto) Urine Creatinine Hepatitis C Antibody 07/27/19 07/27/19 07/27/19 06:29 12:32 17:24 WBC RBC Hgb Hct RDW Plt Count [place] % (Auto) Eos % (Auto) [place] # Eos # Seg Neutrophils % Seg Neuts % (Manual) Lymphocytes % (Manual) Monocytes % (Manual) Eosinophils % (Manual) Seg Neutrophils # Seg Neutrophils # Man Lymphocytes # (Manual) Monocytes # (Manual) Eosinophils # (Manual) PT INR POC ABG pH 7.460 H ABG pH POC ABG pCO2 POC ABG pO2 60 L ABG pO2 ABG HCO3 ABG O2 Saturation ABG Base Excess ABG Hemoglobin Oxyhemoglobin Sodium Potassium Chloride Carbon Dioxide BUN Creatinine Glucose POC Glucose 139 H 126 H Lactic Acid Calcium Phosphorus Magnesium Total Bilirubin Direct Bilirubin AST ALT Alkaline Phosphatase Total Protein Albumin Lipase Urine WBC (Auto) U Epithel Cells (Auto) Urine Creatinine Hepatitis C Antibody 07/28/19 07/28/19 07/28/19 00:00 05:42 11:37 WBC RBC Hgb Hct RDW Plt Count [place] % (Auto) Eos % (Auto) [place] # Eos # Seg Neutrophils % Seg Neuts % (Manual) Lymphocytes % (Manual) Monocytes % (Manual) Eosinophils % (Manual) Seg Neutrophils # Seg Neutrophils # Man Lymphocytes # (Manual) Monocytes # (Manual) Eosinophils # (Manual) PT INR POC ABG pH ABG pH POC ABG pCO2 POC ABG pO2 ABG pO2 ABG HCO3 ABG O2 Saturation ABG Base Excess ABG Hemoglobin Oxyhemoglobin Sodium Potassium Chloride Carbon Dioxide BUN Creatinine Glucose POC Glucose 120 H 114 H 111 H Lactic Acid Calcium Phosphorus Magnesium Total Bilirubin Direct Bilirubin AST ALT Alkaline Phosphatase Total Protein Albumin Lipase Urine WBC (Auto) U Epithel Cells (Auto) Urine Creatinine Hepatitis C Antibody 07/28/19 07/28/19 07/28/19 11:50 11:50 23:49 WBC 22.7 H RBC 3.63 L Hgb Hct RDW Plt Count 520 H [place] % (Auto) Eos % (Auto) [place] # Eos # Seg Neutrophils % Seg Neuts % (Manual) Lymphocytes % (Manual) Monocytes % (Manual) Eosinophils % (Manual) Seg Neutrophils # Seg Neutrophils # Man Lymphocytes # (Manual) Monocytes # (Manual) Eosinophils # (Manual) PT INR POC ABG pH ABG pH POC ABG pCO2 POC ABG pO2 ABG pO2 ABG HCO3 ABG O2 Saturation ABG Base Excess ABG Hemoglobin Oxyhemoglobin Sodium 134 L Potassium 5.6 H D Chloride 96.9 L Carbon Dioxide BUN Creatinine Glucose 121 H POC Glucose 129 H Lactic Acid Calcium Phosphorus Magnesium Total Bilirubin Direct Bilirubin AST ALT Alkaline Phosphatase Total Protein Albumin Lipase Urine WBC (Auto) U Epithel Cells (Auto) Urine Creatinine Hepatitis C Antibody 07/28/19 07/29/19 07/29/19 Unknown 03:50 05:13 WBC RBC Hgb Hct RDW Plt Count [place] % (Auto) Eos % (Auto) [place] # Eos # Seg Neutrophils % Seg Neuts % (Manual) Lymphocytes % (Manual) Monocytes % (Manual) Eosinophils % (Manual) Seg Neutrophils # Seg Neutrophils # Man Lymphocytes # (Manual) Monocytes # (Manual) Eosinophils # (Manual) PT INR POC ABG pH ABG pH 7.498 H 7.453 H POC ABG pCO2 POC ABG pO2 ABG pO2 59.8 L ABG HCO3 29.0 H ABG O2 Saturation 94.1 L ABG Base Excess 4.6 H ABG Hemoglobin 9.1 L Oxyhemoglobin 91.5 L Sodium Potassium Chloride Carbon Dioxide BUN Creatinine Glucose POC Glucose 132 H Lactic Acid Calcium Phosphorus Magnesium Total Bilirubin Direct Bilirubin AST ALT Alkaline Phosphatase Total Protein Albumin Lipase Urine WBC (Auto) U Epithel Cells (Auto) Urine Creatinine Hepatitis C Antibody 07/29/19 07/29/19 07/29/19 06:00 06:00 11:56 WBC 12.3 H RBC 3.02 L Hgb 9.1 L Hct 26.7 L D RDW Plt Count 475 H [place] % (Auto) 11.0 H Eos % (Auto) [place] # 1.4 H Eos # 0.5 H Seg Neutrophils % Seg Neuts % (Manual) Lymphocytes % (Manual) Monocytes % (Manual) Eosinophils % (Manual) Seg Neutrophils # Seg Neutrophils # Man Lymphocytes # (Manual) Monocytes # (Manual) Eosinophils # (Manual) PT INR POC ABG pH ABG pH POC ABG pCO2 POC ABG pO2 ABG pO2 ABG HCO3 ABG O2 Saturation ABG Base Excess ABG Hemoglobin Oxyhemoglobin Sodium 136 L Potassium Chloride 97.5 L Carbon Dioxide BUN 19 H Creatinine Glucose 136 H POC Glucose 139 H Lactic Acid Calcium Phosphorus Magnesium Total Bilirubin Direct Bilirubin AST ALT Alkaline Phosphatase Total Protein Albumin Lipase Urine WBC (Auto) U Epithel Cells (Auto) Urine Creatinine Hepatitis C Antibody 07/29/19 07/29/19 07/30/19 17:38 23:30 05:00 WBC 11.2 H RBC 3.05 L Hgb 9.1 L Hct 27.4 L RDW Plt Count 576 H [place] % (Auto) 12.5 H Eos % (Auto) 5.2 H [place] # 1.4 H Eos # 0.6 H Seg Neutrophils % Seg Neuts % (Manual) Lymphocytes % (Manual) Monocytes % (Manual) Eosinophils % (Manual) Seg Neutrophils # Seg Neutrophils # Man Lymphocytes # (Manual) Monocytes # (Manual) Eosinophils # (Manual) PT INR POC ABG pH ABG pH POC ABG pCO2 POC ABG pO2 ABG pO2 ABG HCO3 ABG O2 Saturation ABG Base Excess ABG Hemoglobin Oxyhemoglobin Sodium Potassium Chloride Carbon Dioxide BUN Creatinine Glucose POC Glucose 158 H 114 H Lactic Acid Calcium Phosphorus Magnesium Total Bilirubin Direct Bilirubin AST ALT Alkaline Phosphatase Total Protein Albumin Lipase Urine WBC (Auto) U Epithel Cells (Auto) Urine Creatinine Hepatitis C Antibody 07/30/19 07/30/19 05:00 05:37 WBC RBC Hgb Hct RDW Plt Count [place] % (Auto) Eos % (Auto) [place] # Eos # Seg Neutrophils % Seg Neuts % (Manual) Lymphocytes % (Manual) Monocytes % (Manual) Eosinophils % (Manual) Seg Neutrophils # Seg Neutrophils # Man Lymphocytes # (Manual) Monocytes # (Manual) Eosinophils # (Manual) PT INR POC ABG pH ABG pH POC ABG pCO2 POC ABG pO2 ABG pO2 ABG HCO3 ABG O2 Saturation ABG Base Excess ABG Hemoglobin Oxyhemoglobin Sodium 136 L Potassium Chloride 97.1 L Carbon Dioxide BUN 21 H Creatinine Glucose 131 H POC Glucose 128 H Lactic Acid Calcium Phosphorus Magnesium Total Bilirubin Direct Bilirubin AST ALT Alkaline Phosphatase Total Protein Albumin Lipase Urine WBC (Auto) U Epithel Cells (Auto) Urine Creatinine Hepatitis C Antibody
--- NOTE | 2019-07-30 12:27 | Progress Note ---
Assessment and Plan critically ill may needL nephrectomy spoke to hospitalist Subjective Date of service: 07/30/19 Principal diagnosis: Acute respiratory failure Objective - Constitutional Vitals: Vital Signs - 12hr 07/30/19 07/30/19 07/30/19 00:30 01:00 01:30 Temperature Pulse Rate 100 H 108 H 104 H Respiratory 17 26 H 20 Rate Blood Pressure 91/59 107/68 97/59 O2 Sat by Pulse 99 99 100 Oximetry 07/30/19 07/30/19 07/30/19 02:00 02:30 03:00 Temperature Pulse Rate 108 H 106 H 107 H Respiratory 17 26 H 26 H Rate Blood Pressure 101/62 97/61 101/60 O2 Sat by Pulse 98 99 98 Oximetry 07/30/19 07/30/19 07/30/19 03:30 03:39 04:00 Temperature 100.9 F H 100.9 F H Pulse Rate 107 H 104 H Respiratory 26 H 26 H Rate Blood Pressure 96/59 93/54 O2 Sat by Pulse 97 98 Oximetry 07/30/19 07/30/19 07/30/19 04:30 05:00 05:30 Temperature Pulse Rate 107 H 102 H 106 H Respiratory 26 H 26 H 19 Rate Blood Pressure 99/64 99/61 97/62 O2 Sat by Pulse 99 99 98 Oximetry 07/30/19 07/30/19 07/30/19 06:00 06:30 07:00 Temperature Pulse Rate 98 H 100 H 95 H Respiratory 26 H 25 H 26 H Rate Blood Pressure 98/57 97/61 96/56 O2 Sat by Pulse 98 99 98 Oximetry 07/30/19 07/30/19 07/30/19 07:30 08:00 08:26 Temperature 99.4 F Pulse Rate 92 H 94 H 95 H Respiratory 26 H 26 H Rate Blood Pressure 97/59 96/62 96/62 O2 Sat by Pulse 100 99 100 Oximetry 07/30/19 07/30/19 07/30/19 08:30 09:00 09:30 Temperature Pulse Rate 95 H 94 H 91 H Respiratory 26 H 26 H 26 H Rate Blood Pressure 100/63 95/61 100/52 O2 Sat by Pulse 100 99 97 Oximetry 07/30/19 07/30/19 07/30/19 10:00 10:30 11:00 Temperature Pulse Rate 93 H 93 H 89 Respiratory 18 26 H 26 H Rate Blood Pressure 106/68 92/54 92/55 O2 Sat by Pulse 100 99 98 Oximetry 07/30/19 11:30 Temperature Pulse Rate 89 Respiratory 26 H Rate Blood Pressure 89/59 O2 Sat by Pulse 99 Oximetry General appearance: Present: severe distress - Respiratory Respiratory effort: labored - Gastrointestinal General gastrointestinal: Present: distended - Labs CBC & Chem 7: 07/30/19 05:00 07/30/19 05:00 Labs: Abnormal lab results 07/29/19 07/29/19 07/29/19 Range/Units 11:56 17:38 23:30 WBC (4.5-11.0) K/mm3 RBC (3.65-5.03) M/mm3 Hgb (10.1-14.3) gm/dl Hct (30.3-42.9) % Plt Count (140-440) K/mm3 [place] % (Auto) (0.0-7.3) % Eos % (Auto) (0.0-4.3) % [place] # (0.0-0.8) K/mm3 Eos # (0.0-0.4) K/mm3 Sodium (137-145) mmol/L Chloride (98-107) mmol/L BUN (7-17) mg/dL Glucose (65-100) mg/dL POC Glucose 139 H 158 H 114 H (70-105) 07/30/19 07/30/19 07/30/19 Range/Units 05:00 05:00 05:37 WBC 11.2 H (4.5-11.0) K/mm3 RBC 3.05 L (3.65-5.03) M/mm3 Hgb 9.1 L (10.1-14.3) gm/dl Hct 27.4 L (30.3-42.9) % Plt Count 576 H (140-440) K/mm3 [place] % (Auto) 12.5 H (0.0-7.3) % Eos % (Auto) 5.2 H (0.0-4.3) % [place] # 1.4 H (0.0-0.8) K/mm3 Eos # 0.6 H (0.0-0.4) K/mm3 Sodium 136 L (137-145) mmol/L Chloride 97.1 L (98-107) mmol/L BUN 21 H (7-17) mg/dL Glucose 131 H (65-100) mg/dL POC Glucose 128 H (70-105) Medications & Allergies - Medications Allergies/Adverse Reactions: Allergies latex Allergy (Verified 06/28/19 17:11) Anaphylaxis tramadol [From Ultram] Allergy (Verified 06/28/19 17:10) Unknown haloperidol [From Haldol] Adverse Reaction (Verified 07/17/19 05:55) Shortness of Breath agitation/combative ketorolac [From Toradol] Adverse Reaction (Verified 06/28/19 17:10) Seizure prochlorperazine [From Compazine] Adverse Reaction (Verified 06/28/19 17:11) Unknown Home Medications: Home Medications Medication Instructions Recorded Confirmed Last Taken Type No Known Home Medications [No 07/16/19 07/16/19 Unknown History Reported Home Medications] Active Medications: Generic Name Dose Route Start Last Admin Trade Name Freq PRN Reason Stop Dose Admin Acetaminophen 650 mg 07/16/19 05:36 07/29/19 16:31 Tylenol PO 650 mg Q4H PRN Administration Pain MILD(1-3)/Fever >100.5/WHALEN Albuterol 2.5 mg 07/16/19 22:48 07/16/19 23:01 Proventil IH 2.5 mg Q4HRT PRN Administration Shortness Of Breath Lipase/Protease/Amylase 1 each 07/18/19 14:34 Pancreaze 10,500 Unit FEEDTUBE PRN PRN For Clogged Feeding Tube Dextrose 50 ml 07/17/19 03:17 07/17/19 05:30 D50w (25gm) Syringe IV 50 ml PRN PRN Administration Hypoglycemia Enoxaparin Sodium 40 mg 07/20/19 10:00 07/30/19 09:34 Lovenox SUB-Q 40 mg QDAY@1000 KASIE Administration Famotidine 20 mg 07/20/19 10:00 07/30/19 09:34 Pepcid PO 20 mg BID KASIE Administration Fentanyl 50 mcg 07/17/19 03:18 07/17/19 04:53 Sublimaze IV 50 mcg Q10MIN PRN Administration ANALGESIA Hydrochlorothiazide 25 mg 07/23/19 10:00 07/30/19 09:34 Hctz PO 25 mg QDAY KASIE Administration Hydromorphone HCl 0.25 mg 07/16/19 05:36 07/21/19 01:07 Dilaudid IV 0.25 mg Q3H PRN Administration Pain, Moderate (4-6) Hydrophilic Ointment 1 applic 07/17/19 03:18 Vaseline Lip Therapy TP Q2HR PRN Dry Lips Midazolam HCl 100 mg/ Sodium 100 mls @ 2 mls/hr 07/17/19 04:00 07/30/19 11:35 Chloride IV 1 mg/hr TITR KASIE 1 mls/hr Titration Protocol 2 MG/HR Fentanyl Citrate 2,000 mcg in 100 mls @ 3.4 mls/hr 07/17/19 04:00 07/30/19 11:34 Fentanyl Drip Premix IV 2 mcg/kg/hr TITR KASIE 6.8 mls/hr Titration Protocol 1 MCG/KG/HR Ceftriaxone Sodium 2 gm in 100 mls @ 200 mls/hr 07/20/19 13:00 07/30/19 09:34 Rocephin/Ns 2 Gm/100 Ml IV 200 mls/hr Q24HR KASIE Administration Protocol Dexmedetomidine HCl 400 mcg/ 104 mls @ 4.186 mls/hr 07/30/19 11:00 07/30/19 11:28 Sodium Chloride IV 0.2 mcg/kg/hr TITRATE KASIE 4.186 mls/hr Administration Protocol 0.2 MCG/KG/HR Midazolam HCl 2 mg 07/17/19 03:18 07/20/19 23:32 Versed IV 2 mg Q10MIN PRN Administration Sedation Multi-Ingred Cream/Lotion/Oil/Oint 1 applic 07/17/19 03:18 Artificial Tears Ophth Oint OU Q4HR PRN Dry Eye(s) Nicotine 14 mg 07/16/19 10:00 07/30/19 09:33 Habitrol TD 14 mg QDAY KASIE Administration Ondansetron HCl 4 mg 07/16/19 05:36 07/16/19 21:16 Zofran IV 4 mg Q8H PRN Administration Nausea And Vomiting Oxycodone/Acetaminophen 1 tab 07/16/19 05:36 07/16/19 12:33 Percocet 5/325 PO 1 tab Q6H PRN Administration Pain, Moderate (4-6) Quetiapine Fumarate 50 mg 07/28/19 11:00 07/30/19 09:34 Seroquel PO 50 mg BID KASIE Administration Simple Syrup 15 ml 07/18/19 14:34 Simple Syrup FEEDTUBE PRN PRN Hypoglycemia Simple Syrup 30 ml 07/18/19 14:34 Simple Syrup FEEDTUBE PRN PRN Hypoglycemia Sodium Bicarbonate 325 mg 07/18/19 14:34 Sodium Bicarbonate FEEDTUBE PRN PRN For Clogged Feeding Tube Sodium Chloride 10 ml 07/16/19 10:00 07/30/19 09:34 Sodium Chloride Flush Syringe 10 Ml IV 10 ml BID KASIE Administration Sodium Chloride 10 ml 07/16/19 05:36 Sodium Chloride Flush Syringe 10 Ml IV PRN PRN LINE FLUSH Sodium Polystyrene Sulfonate 15 gm 07/28/19 22:14 07/28/19 22:35 Kionex PO 15 gm Q6H PRN Administration Hyperkalemia
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
[2019-07-30] MEDS ORDERED: NACL 0.9% 500 ML 500 ML IV ONE (13:36)
--- NOTE | 2019-07-30 14:12 | Consultation ---
History of Present Illness - Reason for Consult Consult date: 07/30/19 Left multifocal renal abscess - History of Present Illness 44-year-old female with bipolar disorder and septic shock who is currently ventilated with borderline blood pressure who had a recent CT demonstrating multifocal renal abscesses throughout most of the left kidney. One of these abscesses are amenable to percutaneous drainage, but many of them are not. blood culture was positive providing microbiology data. Past History Past Medical History: other (Bipolar) Past Surgical History: Other (eye surgery) Social history: smoking. denies: alcohol abuse, prescription drug abuse, IV drug use Family history: no significant family history Medications and Allergies Allergies Allergy/AdvReac Type Severity Reaction Status Date / Time latex Allergy Anaphylaxis Verified 06/28/19 17:11 tramadol [From Ultram] Allergy Unknown Verified 06/28/19 17:10 haloperidol [From Haldol] AdvReac Shortness Verified 07/17/19 05:55 of Breath ketorolac [From Toradol] AdvReac Seizure Verified 06/28/19 17:10 prochlorperazine AdvReac Unknown Verified 06/28/19 17:11 [From Compazine] Home Medications Medication Instructions Recorded Confirmed Last Taken Type No Known Home Medications [No 07/16/19 07/16/19 Unknown History Reported Home Medications] Active Meds: Active Medications Acetaminophen (Tylenol) 650 mg PO Q4H PRN PRN Reason: Pain MILD(1-3)/Fever >100.5/WHALEN Last Admin: 07/29/19 16:31 Dose: 650 mg Documented by: Albuterol (Proventil) 2.5 mg IH Q4HRT PRN PRN Reason: Shortness Of Breath Last Admin: 07/16/19 23:01 Dose: 2.5 mg Documented by: Lipase/Protease/Amylase (Pancrerohndae Dr 10,500 Unit) 1 each FEEDTUBE PRN PRN PRN Reason: For Clogged Feeding Tube Dextrose (D50w (25gm) Syringe) 50 ml IV PRN PRN PRN Reason: Hypoglycemia Last Admin: 07/17/19 05:30 Dose: 50 ml Documented by: Famotidine (Pepcid) 20 mg PO BID KASIE Last Admin: 07/30/19 09:34 Dose: 20 mg Documented by: Fentanyl (Sublimaze) 50 mcg IV Q10MIN PRN PRN Reason: ANALGESIA Last Admin: 07/17/19 04:53 Dose: 50 mcg Documented by: Hydrochlorothiazide (Hctz) 25 mg PO QDAY KASIE Last Admin: 07/30/19 09:34 Dose: 25 mg Documented by: Hydromorphone HCl (Dilaudid) 0.25 mg IV Q3H PRN PRN Reason: Pain, Moderate (4-6) Last Admin: 07/21/19 01:07 Dose: 0.25 mg Documented by: Hydrophilic Ointment (Vaseline Lip Therapy) 1 applic TP Q2HR PRN PRN Reason: Dry Lips Midazolam HCl 100 mg/ Sodium (Chloride) 100 mls @ 2 mls/hr IV TITR KASIE; Protocol Last Titration: 07/30/19 12:20 Dose: 0 mg/hr, 0 mls/hr Documented by: Fentanyl Citrate (Fentanyl Drip Premix) 2,000 mcg in 100 mls @ 3.4 mls/hr IV TITR KASIE; Protocol Last Titration: 07/30/19 11:34 Dose: 2 mcg/kg/hr, 6.8 mls/hr Documented by: Ceftriaxone Sodium (Rocephin/Ns 2 Gm/100 Ml) 2 gm in 100 mls @ 200 mls/hr IV Q24HR KASIE; Protocol Last Admin: 07/30/19 09:34 Dose: 200 mls/hr Documented by: Dexmedetomidine HCl 400 mcg/ (Sodium Chloride) 104 mls @ 4.186 mls/hr IV TITRATE KASIE; Protocol Last Admin: 07/30/19 11:28 Dose: 0.2 mcg/kg/hr, 4.186 mls/hr Documented by: Midazolam HCl (Versed) 2 mg IV Q10MIN PRN PRN Reason: Sedation Last Admin: 07/20/19 23:32 Dose: 2 mg Documented by: Multi-Ingred Cream/Lotion/Oil/Oint (Artificial Tears Ophth Oint) 1 applic OU Q4HR PRN PRN Reason: Dry Eye(s) Nicotine (Habitrol) 14 mg TD QDAY KASIE Last Admin: 07/30/19 09:33 Dose: 14 mg Documented by: Ondansetron HCl (Zofran) 4 mg IV Q8H PRN PRN Reason: Nausea And Vomiting Last Admin: 07/16/19 21:16 Dose: 4 mg Documented by: Oxycodone/Acetaminophen (Percocet 5/325) 1 tab PO Q6H PRN PRN Reason: Pain, Moderate (4-6) Last Admin: 07/16/19 12:33 Dose: 1 tab Documented by: Quetiapine Fumarate (Seroquel) 50 mg PO BID [facility] Last Admin: 07/30/19 09:34 Dose: 50 mg Documented by: Simple Syrup (Simple Syrup) 15 ml FEEDTUBE PRN PRN PRN Reason: Hypoglycemia Simple Syrup (Simple Syrup) 30 ml FEEDTUBE PRN PRN PRN Reason: Hypoglycemia Sodium Bicarbonate (Sodium Bicarbonate) 325 mg FEEDTUBE PRN PRN PRN Reason: For Clogged Feeding Tube Sodium Chloride (Sodium Chloride Flush Syringe 10 Ml) 10 ml IV BID [facility] Last Admin: 07/30/19 09:34 Dose: 10 ml Documented by: Sodium Chloride (Sodium Chloride Flush Syringe 10 Ml) 10 ml IV PRN PRN PRN Reason: LINE FLUSH Sodium Polystyrene Sulfonate (Kionex) 15 gm PO Q6H PRN PRN Reason: Hyperkalemia Last Admin: 07/28/19 22:35 Dose: 15 gm Documented by: Review of Systems ROS unobtainable: due to endotracheal tube Exam - Constitutional Vitals: Temp Pulse Resp BP Pulse Ox 98.6 F 82 26 H 90/57 100 07/30/19 12:00 07/30/19 12:30 07/30/19 12:30 07/30/19 12:30 07/30/19 12:30 General appearance: Present: other (intubated) - Respiratory Respiratory effort: other (intubated) - Extremities Extremities: pulses intact (pedal pulses), normal temperature, normal color - Abdominal General gastrointestinal: Present: other (intubated) - Psychiatric Psychiatric: other (intubated) Results - Labs CBC & Chem 7: 07/30/19 05:00 07/30/19 05:00 Labs: Abnormal lab results 07/29/19 07/29/19 07/29/19 Range/Units 11:56 17:38 23:30 WBC (4.5-11.0) K/mm3 RBC (3.65-5.03) M/mm3 Hgb (10.1-14.3) gm/dl Hct (30.3-42.9) % Plt Count (140-440) K/mm3 Prentiss % (Auto) (0.0-7.3) % Eos % (Auto) (0.0-4.3) % Prentiss # (0.0-0.8) K/mm3 Eos # (0.0-0.4) K/mm3 Sodium (137-145) mmol/L Chloride (98-107) mmol/L BUN (7-17) mg/dL Glucose (65-100) mg/dL POC Glucose 139 H 158 H 114 H (70-105) 07/30/19 07/30/19 07/30/19 Range/Units 05:00 05:00 05:37 WBC 11.2 H (4.5-11.0) K/mm3 RBC 3.05 L (3.65-5.03) M/mm3 Hgb 9.1 L (10.1-14.3) gm/dl Hct 27.4 L (30.3-42.9) % Plt Count 576 H (140-440) K/mm3 Prentiss % (Auto) 12.5 H (0.0-7.3) % Eos % (Auto) 5.2 H (0.0-4.3) % Prentiss # 1.4 H (0.0-0.8) K/mm3 Eos # 0.6 H (0.0-0.4) K/mm3 Sodium 136 L (137-145) mmol/L Chloride 97.1 L (98-107) mmol/L BUN 21 H (7-17) mg/dL Glucose 131 H (65-100) mg/dL POC Glucose 128 H (70-105) 07/30/19 Range/Units 12:32 WBC (4.5-11.0) K/mm3 RBC (3.65-5.03) M/mm3 Hgb (10.1-14.3) gm/dl Hct (30.3-42.9) % Plt Count (140-440) K/mm3 Prentiss % (Auto) (0.0-7.3) % Eos % (Auto) (0.0-4.3) % Prentiss # (0.0-0.8) K/mm3 Eos # (0.0-0.4) K/mm3 Sodium (137-145) mmol/L Chloride (98-107) mmol/L BUN (7-17) mg/dL Glucose (65-100) mg/dL POC Glucose 138 H (70-105) - Imaging and Cardiology CT scan - abdomen: report reviewed, image reviewed Assessment and Plan 44-year-old female who was been on antibiotics who presented to the hospital with septic shock with Escherichia coli bacteremia with CT scan demonstrating multi focal abscess involving the near entirety of the left kidney. One of the abscesses is amenable to percutaneous drainage, but the rest of the multifocal abscesses are small and numerous and will not be amenable to percutaneous drainage. unfortunately, given how sick the patient and her failure to respond with antibiotics, and how extensive the multifocal left renal abscesses are, best option would be left nephrectomy. This was discussed with Dr. Weathers. This was discussed with Dr. Tyler. If patient cannot undergo left nephrectomy, the largest abscess can be drained, but this does not address the rest of the numerous smaller abscesses throughout the left kidney. Left nephrectomy would be the best option to treat this patient.
--- NOTE | 2019-07-30 16:12 | Anesthesia Consultation ---
Anesthesia Consult and Med Hx Date of service: 07/30/19 - Airway Mental/Hyoid Distance: Adequate (Critically ill w/ E. Coli sepsis assumed secondary to Pylonephritis. For Lt nephrectomy. Intubated in ICU) - Pulmonary Exam CTA: Yes - Cardiac Exam Cardiac Exam: RRR - Pre-Operative Health Status ASA Pre-Surgery Classification: ASA4 Proposed Anesthetic Plan: General - Pulmonary Hx Smoking: Yes Hx Respiratory Symptoms: Yes (Intubated, Pulm. Edems, Lt. plueral effusion) - Central Nervous System Hx Psychiatric Problems: Yes (Bipolar) - Endocrine Hx Renal Disease: Yes (Current problem: Lt Pylonephritis. Septic) Hx Liver Disease: Yes (Hep. C) - Other Systems Hx Substance Use: Yes Hx Cancer: No
[2019-07-30] MEDS ORDERED: VERSED IV ONE ×2 (16:58→20:23)
[2019-07-30] MEDS ORDERED: DILAUDID ONE (16:58)
[2019-07-30] MEDS ORDERED: KETAMINE 50 MG/ML-WATER SYRING ONE (16:59)
[2019-07-30] MEDS ORDERED: BLOXIVERZ ONE (17:00)
[2019-07-30] MEDS ORDERED: DECADRON ONE (17:00)
[2019-07-30] MEDS ORDERED: ROBINUL ONE (17:00)
[2019-07-30] MEDS ORDERED: ZOFRAN ONE (17:00)
[2019-07-30] MEDS ORDERED: SUBLIMAZE ONE ×2 (17:00→20:45)
[2019-07-30] MEDS ORDERED: ZEMURON IV ONE (17:01)
--- NOTE | 2019-07-30 17:10 | Progress Note ---
Assessment and Plan - Patient Problems (1) Acute renal failure Current Visit: Yes Status: Acute Plan to address problem: Kidney function has improved. Follow-up electrolytes and renal function. pt with excellent urine output. CT showing multiple abscesses. Urology onboard, she may need nephrectomy (2) Fluid overload Current Visit: Yes Status: Acute Plan to address problem: Follow up volume status off bumex. electrolytes and renal function (3) Acute pyelonephritis Current Visit: Yes Status: Acute Plan to address problem: Continue antibiotics.CT showing multiple L kidney abscesses. Urology onboard, she may need nephrectomy (4) Hypokalemia Current Visit: Yes Status: Acute Plan to address problem: K normalized (5) Elevated LFTs Current Visit: Yes Status: Acute Plan to address problem: Ischemic Hepatitis. Follow-up liver function tests (6) Acute respiratory failure Current Visit: Yes Status: Acute Plan to address problem: Continue ventilator management as per ICU team (7) Cellulitis of right foot Current Visit: Yes Status: Resolved Plan to address problem: Continue antibiotics Subjective Date of service: 07/30/19 Principal diagnosis: Acute respiratory failure Interval history: Pt remains intubated, sedated Objective - Vital Signs Vital signs: Vital Signs - 12hr 07/30/19 07/30/19 07/30/19 05:30 06:00 06:30 Temperature Pulse Rate 106 H 98 H 100 H Respiratory 19 26 H 25 H Rate Blood Pressure 97/62 98/57 97/61 O2 Sat by Pulse 98 98 99 Oximetry 07/30/19 07/30/19 07/30/19 07:00 07:30 08:00 Temperature 99.4 F Pulse Rate 95 H 92 H 94 H Respiratory 26 H 26 H 26 H Rate Blood Pressure 96/56 97/59 96/62 O2 Sat by Pulse 98 100 99 Oximetry 07/30/19 07/30/19 07/30/19 08:26 08:30 09:00 Temperature Pulse Rate 95 H 95 H 94 H Respiratory 26 H 26 H Rate Blood Pressure 96/62 100/63 95/61 O2 Sat by Pulse 100 100 99 Oximetry 07/30/19 07/30/19 07/30/19 09:30 10:00 10:30 Temperature Pulse Rate 91 H 93 H 93 H Respiratory 26 H 18 26 H Rate Blood Pressure 100/52 106/68 92/54 O2 Sat by Pulse 97 100 99 Oximetry 07/30/19 07/30/19 07/30/19 11:00 11:30 12:00 Temperature 98.6 F Pulse Rate 89 89 85 Respiratory 26 H 26 H 22 Rate Blood Pressure 92/55 89/59 92/57 O2 Sat by Pulse 98 99 100 Oximetry 07/30/19 07/30/19 07/30/19 12:25 12:30 13:00 Temperature Pulse Rate 82 82 80 Respiratory 26 H 26 H Rate Blood Pressure 90/57 90/57 88/56 O2 Sat by Pulse 100 100 100 Oximetry 07/30/19 07/30/19 07/30/19 13:31 14:00 14:30 Temperature Pulse Rate 96 H 78 91 H Respiratory 29 H 26 H 19 Rate Blood Pressure 102/68 94/58 99/59 O2 Sat by Pulse 100 100 100 Oximetry 07/30/19 07/30/19 07/30/19 15:00 15:24 15:30 Temperature Pulse Rate 86 91 H 87 Respiratory 26 H 26 H Rate Blood Pressure 94/50 99/59 88/55 O2 Sat by Pulse 100 100 100 Oximetry 07/30/19 07/30/19 07/30/19 16:00 16:30 17:00 Temperature 101.3 F H Pulse Rate 87 102 H 93 H Respiratory 24 23 25 H Rate Blood Pressure 97/59 110/69 90/59 O2 Sat by Pulse 100 100 99 Oximetry - General Appearance General appearance: well-developed, appears stated age, sedated on ventilator, intubated EENT: ATNC, PERRL, mucous membranes moist Neck: no JVD Respiratory: Present: Clear to Ascultation Cardiology: regular, S1S2 Gastrointestinal: normoactive bowel sounds Integumentary: no rash, other (no edema ) Neurologic: no focal deficit, alert and oriented x3, strength 5/5, CN 3-12 intact Psychiatric: mood/affect appropriate, cooperative - Lab 07/30/19 05:00 07/30/19 05:00 Most recent lab results ABG pH 7.453 pH Units (7.350-7.450) H 07/29/19 03:50 ABG pCO2 42.4 mm Hg 07/29/19 03:50 ABG pO2 89.9 mm Hg (80.0-90.0) 07/29/19 03:50 ABG HCO3 29.0 mmol/L (20.0-26.0) H 07/29/19 03:50 ABG O2 Saturation 97.3 % (95.0-99.0) 07/29/19 03:50 Calcium 8.7 mg/dL (8.4-10.2) 07/30/19 05:00 Phosphorus 4.50 mg/dL (2.5-4.5) D 07/28/19 11:50 Magnesium 2.00 mg/dL (1.7-2.3) 07/28/19 11:50 76.6 mg/dL (0.1-20.0) H 07/16/19 14:30 39 mmol/L 07/16/19 14:30 Medications & Allergies - Medications Allergies/Adverse Reactions: Allergies latex Allergy (Verified 06/28/19 17:11) Anaphylaxis tramadol [From Ultram] Allergy (Verified 06/28/19 17:10) Unknown haloperidol [From Haldol] Adverse Reaction (Verified 07/17/19 05:55) Shortness of Breath agitation/combative ketorolac [From Toradol] Adverse Reaction (Verified 06/28/19 17:10) Seizure prochlorperazine [From Compazine] Adverse Reaction (Verified 06/28/19 17:11) Unknown Home Medications: Home Medications Medication Instructions Recorded Confirmed Last Taken Type No Known Home Medications [No 07/16/19 07/16/19 Unknown History Reported Home Medications] Active Medications: Generic Name Dose Route Start Last Admin Trade Name Freq PRN Reason Stop Dose Admin Acetaminophen 650 mg 07/16/19 05:36 07/29/19 16:31 Tylenol PO 650 mg Q4H PRN Administration Pain MILD(1-3)/Fever >100.5/WHALEN Albuterol 2.5 mg 07/16/19 22:48 07/16/19 23:01 Proventil IH 2.5 mg Q4HRT PRN Administration Shortness Of Breath Lipase/Protease/Amylase 1 each 07/18/19 14:34 Pancrenicolás Thomas 10,500 Unit FEEDTUBE PRN PRN For Clogged Feeding Tube Dextrose 50 ml 07/17/19 03:17 07/17/19 05:30 D50w (25gm) Syringe IV 50 ml PRN PRN Administration Hypoglycemia Famotidine 20 mg 07/20/19 10:00 07/30/19 09:34 Pepcid PO 20 mg BID KASIE Administration Fentanyl 50 mcg 07/17/19 03:18 07/17/19 04:53 Sublimaze IV 50 mcg Q10MIN PRN Administration ANALGESIA Hydrochlorothiazide 25 mg 07/23/19 10:00 07/30/19 09:34 Hctz PO 25 mg QDAY KASIE Administration Hydromorphone HCl 0.25 mg 07/16/19 05:36 07/21/19 01:07 Dilaudid IV 0.25 mg Q3H PRN Administration Pain, Moderate (4-6) Hydrophilic Ointment 1 applic 07/17/19 03:18 Vaseline Lip Therapy TP Q2HR PRN Dry Lips Midazolam HCl 100 mg/ Sodium 100 mls @ 2 mls/hr 07/17/19 04:00 07/30/19 12:20 Chloride IV 0 mg/hr TITR KASIE 0 mls/hr Titration Protocol 2 MG/HR Fentanyl Citrate 2,000 mcg in 100 mls @ 3.4 mls/hr 07/17/19 04:00 07/30/19 1 1:34 Fentanyl Drip Premix IV 2 mcg/kg/hr TITR KASIE 6.8 mls/hr Titration Protocol 1 MCG/KG/HR Ceftriaxone Sodium 2 gm in 100 mls @ 200 mls/hr 07/20/19 13:00 07/30/19 09:34 Rocephin/Ns 2 Gm/100 Ml IV 200 mls/hr Q24HR KASIE Administration Protocol Dexmedetomidine HCl 400 mcg/ 104 mls @ 4.186 mls/hr 07/30/19 11:00 07/30/19 14:23 Sodium Chloride IV 0.3 mcg/kg/hr TITRATE KASIE 6.279 mls/hr Titration Protocol 0.2 MCG/KG/HR Midazolam HCl 2 mg 07/17/19 03:18 07/20/19 23:32 Versed IV 2 mg Q10MIN PRN Administration Sedation Multi-Ingred Cream/Lotion/Oil/Oint 1 applic 07/17/19 03:18 Artificial Tears Ophth Oint OU Q4HR PRN Dry Eye(s) Nicotine 14 mg 07/16/19 10:00 07/30/19 09:33 Habitrol TD 14 mg QDAY KAISE Administration Ondansetron HCl 4 mg 07/16/19 05:36 07/16/19 21:16 Zofran IV 4 mg Q8H PRN Administration Nausea And Vomiting Oxycodone/Acetaminophen 1 tab 07/16/19 05:36 07/16/19 12:33 Percocet 5/325 PO 1 tab Q6H PRN Administration Pain, Moderate (4-6) Quetiapine Fumarate 50 mg 07/28/19 11:00 07/30/19 09:34 Seroquel PO 50 mg BID KASIE Administration Simple Syrup 15 ml 07/18/19 14:34 Simple Syrup FEEDTUBE PRN PRN Hypoglycemia Simple Syrup 30 ml 07/18/19 14:34 Simple Syrup FEEDTUBE PRN PRN Hypoglycemia Sodium Bicarbonate 325 mg 07/18/19 14:34 Sodium Bicarbonate FEEDTUBE PRN PRN For Clogged Feeding Tube Sodium Chloride 10 ml 07/16/19 10:00 07/30/19 09:34 Sodium Chloride Flush Syringe 10 Ml IV 10 ml BID KASIE Administration Sodium Chloride 10 ml 07/16/19 05:36 Sodium Chloride Flush Syringe 10 Ml IV PRN PRN LINE FLUSH Sodium Polystyrene Sulfonate 15 gm 07/28/19 22:14 07/28/19 22:35 Kionex PO 15 gm Q6H PRN Administration Hyperkalemia
[2019-07-30] MEDS ORDERED: TYLENOL PR PRN (17:44)
--- NOTE | 2019-07-30 17:57 | Anesthesia Day of Surgery ---
Anesthesia Day of Surgery - Day of Surgery Patient Examined: Yes Patient H&P Reviewed: Yes Patient is NPO: Yes
--- NOTE | 2019-07-30 19:32 | Post Operative Note ---
Date of procedure: 07/30/19 Pre-op diagnosis: sepsis pyelo Post-op diagnosis: same Findings: pus filled kidney Procedure: left emerg nephrectomy Anesthesia: ARMANDO Surgeon: RENU SOLIS Tank House Operator: JAKE JONES Estimated blood loss: other (250) Pathology: list (kidney) Specimen disposition: to lab Condition: stable Disposition: PACU
[2019-07-30] MEDS ORDERED: ZOFRAN IV PRN (20:22)
[2019-07-30] MEDS ORDERED: VERSED ONE (20:40)
[2019-07-30] MEDS ORDERED: NACL 0.9% 500 ML 500 ML ONE (20:44)
[2019-07-30] MEDS: SUBLIMAZE IV PRN ×2 (20:45→20:55)
[2019-07-30 20:54] LABS: ABG Base Excess -2.4 mmol/L (-2.0-3.0); ABG HCO3 22.2 mmol/L (20.0-26.0); ABG Methemoglobin 0.5 % (0.0-1.5); ABG Oxygen Saturation 98.4 % (95.0-99.0); ABG PCO2 37.2 mm Hg; ABG PH 7.393 pH Units (7.350-7.450); ABG PO2 122.4 mm Hg (80.0-90.0)
[2019-07-30] MEDS ORDERED: VALIUM IV ONE (20:56)
[2019-07-30] MEDS ORDERED: DIPRIVAN 10 MG/ML 1,000 MG/100 ML BOTTLE IV ONE (21:02)
[2019-07-30] MEDS ORDERED: NACL 0.9% 1000 ML 1,000 ML ONE (21:05)
--- NOTE | 2019-07-30 21:26 | Operative Report ---
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 PROCEDURE: Emergency left nephrectomy. SURGEONS: Dr. Weathers and Dr. Lemons. ANESTHESIA: General. FINDINGS: This is a woman who has been in the hospital with progressive sepsis in the last few weeks. She is on a ventilator. Her creatinine stabilized. She was stabilized with fluids and antibiotics. She now presents for emergency nephrectomy. DESCRIPTION OF PROCEDURE: The patient was brought to the operating room and placed on the operating table. Following induction of anesthesia, placed with the left flank up, prepped and draped in usual sterile fashion. A Chery catheter was placed. A flank incision just above the twelfth rib was carried out and extended anteriorly. It carried through the skin and superficial fascia to the rectus fascia and external oblique fascia. The fascia was opened. Rectus muscle was divided as was the external oblique muscle. Internal oblique fascia and muscle was divided and then the transversus muscle. Retroperitoneal space was entered and it was very tight and adherent to surrounding body wall from the inflammation. There was edema as well. We opened up the peritoneum and the entire colon was stuck to the Gerota's fascia. This was dissected free. We obtained a good plane posteriorly and superiorly. The kidney was dissected free, lots of edema, lots of adhesions. The ureter was identified and divided and we tracked this up and identified the vessels. The vein was identified and we ligated the ovarian vein and we were able to get around the vein. The artery was directly behind the vein. Once we freed up the rest of the kidney, the vein was divided and the artery was right there and then the artery was divided. Both pedicles were doubly ligated and clipped. The patient tolerated the procedure well. Wound was copiously irrigated. A MIRTHA was placed in the space of Retzius. There was no active bleeding. Closure was accomplished with 0 Vicryl in 2 layers with looped PDS and closed. The patient was brought to recovery room in stable condition, much improved. Estimated blood loss 250 mL. JOB# [id number] CAIT/RAKEL
[2019-07-30] MEDS: DIPRIVAN 10 MG/ML 1,000 MG/100 ML BOTTLE IV SCH (21:45)
[2019-07-30] MEDS: ZOSYN/NS 4.5GM/100ML 4.5 GM/100 ML VIAL IV SCH (23:00)
--- NOTE | 2019-07-30 23:37 | Consultation ---
HISTORY OF PRESENT ILLNESS: The patient is a woman who was admitted to [facility] about 2 weeks ago with fever. She has a history of bipolar, abdominal pain, foot infection, hepatitis C. No previous history known. She was admitted to the hospital with a white count of 11,000 and elevated creatinine of 2.2, she has been treated on antibiotics, had a CT scan which showed some renal stranding, had an Infectious Disease consultation and was found to have pyuria with a presumptive diagnosis of pyelonephritis and possible cholecystitis. She had Gram-negative bacteremia. More recent CT scan showed what looks to be renal abscesses in the left kidney. She is on a ventilator, remains critically ill. Most recent white count is 11. She is anemic. She had evidence of possible DIC. Most recent creatinine is improved. PHYSICAL EXAMINATION: GENERAL: She is in moderate distress on a respirator. EXTREMITIES: She has lower extremity contractures, she is partially cyanotic in the lower feet with a contracted foot. ABDOMEN: Slightly distended. She is being fed as well. IMPRESSION: Suspect enlarged kidney, renal abscess, critically ill 44-year-old with history of hepatitis C. May need left nephrectomy. JOB# [id number] CAIT/RAEKL
[2019-07-31 04:38] LABS: ABG Base Excess -2.1 mmol/L (-2.0-3.0); ABG HCO3 22.3 mmol/L (20.0-26.0); ABG Methemoglobin 0.5 % (0.0-1.5); ABG Oxygen Saturation 98.5 % (95.0-99.0); ABG PCO2 36.6 mm Hg; ABG PH 7.402 pH Units (7.350-7.450); ABG PO2 128.9 mm Hg (80.0-90.0)
[2019-07-31] MEDS: ZOSYN/NS 4.5GM/100ML 4.5 GM/100 ML VIAL IV SCH (06:44)
[2019-07-31] MEDS: fentaNYL DRIP Premix 2,000 MCG/100 ML BAG IV SCH (06:45)
[2019-07-31] MEDS: DIPRIVAN 10 MG/ML 1,000 MG/100 ML BOTTLE IV SCH (06:47)
[2019-07-31] MEDS: DILAUDID IV PRN ×5 (08:35→22:42)
[2019-07-31] MEDS: HCTZ PO SCH (09:37)
[2019-07-31] MEDS: ROCEPHIN/NS 2 GM/100 ML 2 GM/100 ML BAG IV SCH (09:37)
[2019-07-31] MEDS: HABITROL TD SCH (09:37)
[2019-07-31] MEDS: PEPCID PO SCH ×2 (09:37→23:11)
[2019-07-31] MEDS: SODIUM CHLORIDE FLUSH SYRINGE 10 ML IV SCH ×2 (09:38→22:43)
[2019-07-31 10:05] LABS: Basophils % (Auto) 0.2 % (0.0-1.8); Hematocrit 28.9 % (30.3-42.9); Lymphocytes % (Auto) 8.4 % (13.4-35.0); Mean Corpuscular HGB Conc 35 % (30-34); Mean Corpuscular Volume 89 fl (79-97); Monocytes # (Auto) 0.8 K/mm3 (0.0-0.8); Monocytes % (Auto) 6.4 % (0.0-7.3); Platelet Count 566 K/mm3 (140-440); Red Blood Count 3.26 M/mm3 (3.65-5.03); Red Cell Distribution Width 14.4 % (13.2-15.2)
--- NOTE | 2019-07-31 10:11 | Post Anesthesia Evaluation ---
- Post Anesthesia Evaluation Patient Participated: Yes Airway Patent: Yes Stable Respiratory Function: Yes Nausea/Vomiting: No Temp > 96.8F: Yes Pain Manageable: Yes Adequeate Hydration: Yes Anesthesia Complications: No Block Receding Appropriately: Not Applicable Patient on Ventilator: Yes
[2019-07-31 10:22] LABS: BUN/Creatinine Ratio 29; Blood Urea Nitrogen 23 mg/dL (7-17); Calcium 8.7 mg/dL (8.4-10.2); Hemolysis Index 0
--- NOTE | 2019-07-31 11:23 | Progress Note ---
Assessment and Plan 44 y/o female with abdominal pain found to have right sided mass vs cysts with acute vs chronic vs acute chronic renal failure, UTI and possible cellulitis of lower ext 1. ID-Left nephrectomy. Tolerated well. Remains on IV abx therapy. 2. Resp-Minimal vent support. Awake on high levels of sedation. NOw that she has had her kidney removed, will attempt a trial of extubation. Will just discontinue all sedation and extubate. Will order BIPAP for PRN at bedside. Spoke with RT and will do this ricky 3. PSYCH-Continue Seroquel at 50 BID. 4. Will increase pain medications to dilaudid 1mg IV q3 CCT 31 minutes. Subjective Date of service: 07/31/19 Principal diagnosis: Acute respiratory failure Interval history: Had left nephrectomy last night. Tolerated well. Mother here now at bedside. Patient is awake on Diprovan 40 and Fent 3. H/H stable Objective Vital Signs - 12hr 07/30/19 07/30/19 07/31/19 23:30 23:43 00:00 Temperature Pulse Rate 90 95 H 84 Respiratory 16 26 H Rate Blood Pressure 110/68 110/68 106/62 O2 Sat by Pulse 99 99 99 Oximetry 07/31/19 07/31/19 07/31/19 00:30 01:00 01:30 Temperature Pulse Rate 80 74 70 Respiratory 26 H 26 H 26 H Rate Blood Pressure 97/56 96/55 90/47 O2 Sat by Pulse 98 99 99 Oximetry 07/31/19 07/31/19 07/31/19 02:00 02:31 03:00 Temperature Pulse Rate 64 88 111 H Respiratory 26 H 12 19 Rate Blood Pressure 91/47 123/76 125/81 O2 Sat by Pulse 99 100 100 Oximetry 07/31/19 07/31/19 07/31/19 03:30 04:00 04:30 Temperature 98.3 F Pulse Rate 107 H 111 H 91 H Respiratory 17 21 16 Rate Blood Pressure 123/85 141/92 131/85 O2 Sat by Pulse 99 100 99 Oximetry 07/31/19 07/31/19 07/31/19 04:46 05:00 05:30 Temperature Pulse Rate 111 H 102 H 95 H Respiratory 22 21 Rate Blood Pressure 138/88 129/86 128/82 O2 Sat by Pulse 100 100 98 Oximetry 07/31/19 07/31/19 07/31/19 06:00 06:30 07:00 Temperature Pulse Rate 96 H 88 85 Respiratory 20 12 15 Rate Blood Pressure 127/93 133/81 127/72 O2 Sat by Pulse 98 99 99 Oximetry 07/31/19 07/31/19 07/31/19 07:19 07:30 08:00 Temperature Pulse Rate 93 H 77 84 Respiratory 16 20 Rate Blood Pressure 130/82 126/79 128/79 O2 Sat by Pulse 98 99 98 Oximetry 07/31/19 07/31/19 08:30 09:00 Temperature Pulse Rate 91 H 83 Respiratory 22 19 Rate Blood Pressure 136/89 126/103 O2 Sat by Pulse 99 98 Oximetry Constitutional: other (sedated, critically ill on ventilator. Opens eyes to tactile stimule) Eyes: non-icteric ENT: other (orally intubated and sedated) Neck: supple Effort: normal Ascultation: Bilateral: rales, other (coarse equal BS bilaterally) Percussion: Bilateral: not dull Cardiovascular: regular rate and rhythm (sinus tach) Gastrointestinal: normoactive bowel sounds, soft, non-tender, non-distended Integumentary: normal Extremities: no cyanosis, no edema, pink and warm Neurologic: non-focal exam, other (sedated opens eyes to tactile stimuli) Psychiatric: other (unable to obtain) CBC and BMP: 07/31/19 09:45 07/31/19 09:45 ABG, PT/INR, D-dimer: ABG POC ABG pH 7.460 (7.35-7.45) H 07/27/19 06:29 ABG pH 7.402 pH Units (7.350-7.450) 07/31/19 Unknown POC ABG pCO2 42.4 (35-45) 07/27/19 06:29 ABG pCO2 36.6 mm Hg 07/31/19 Unknown POC ABG pO2 60 (80-105) L 07/27/19 06:29 ABG pO2 128.9 mm Hg (80.0-90.0) H 07/31/19 Unknown POC ABG HCO3 30.1 (22-26 mml/L) 07/27/19 06:29 POC ABG Total CO2 31 (23-27mmol/L) 07/27/19 06:29 POC ABG O2 Sat 92 07/27/19 06:29 ABG O2 Saturation 98.5 % (95.0-99.0) 07/31/19 Unknown PT/INR, D-dimer PT 16.3 Sec. (12.2-14.9) H 07/16/19 05:47 INR 1.35 (0.87-1.13) H 07/16/19 05:47 Abnormal lab findings: Abnormal Labs 07/16/19 07/16/19 07/16/19 02:01 02:01 02:01 WBC 11.7 H RBC Hgb Hct MCHC RDW Plt Count 101 L Lymph % (Auto) [place] % (Auto) Eos % (Auto) Lymph # [place] # Eos # Seg Neutrophils % Seg Neuts % (Manual) 92.0 H Lymphocytes % (Manual) 5.0 L Monocytes % (Manual) Eosinophils % (Manual) Seg Neutrophils # Seg Neutrophils # Man 10.8 H Lymphocytes # (Manual) 0.6 L Monocytes # (Manual) Eosinophils # (Manual) PT 15.2 H INR 1.23 H POC ABG pH ABG pH POC ABG pCO2 POC ABG pO2 ABG pO2 ABG HCO3 ABG O2 Saturation ABG Base Excess ABG Hemoglobin Oxyhemoglobin Sodium Potassium Chloride Carbon Dioxide 18 L BUN 46 H Creatinine 2.2 H Glucose 116 H POC Glucose Lactic Acid Calcium Phosphorus Magnesium Total Bilirubin Direct Bilirubin AST 63 H ALT 125 H Alkaline Phosphatase Total Protein 6.2 L Albumin 2.8 L Lipase Urine WBC (Auto) U Epithel Cells (Auto) Urine Creatinine Hepatitis C Antibody Crossmatch 07/16/19 07/16/19 07/16/19 02:16 02:43 04:07 WBC RBC Hgb Hct MCHC RDW Plt Count Lymph % (Auto) [place] % (Auto) Eos % (Auto) Lymph # [place] # Eos # Seg Neutrophils % Seg Neuts % (Manual) Lymphocytes % (Manual) Monocytes % (Manual) Eosinophils % (Manual) Seg Neutrophils # Seg Neutrophils # Man Lymphocytes # (Manual) Monocytes # (Manual) Eosinophils # (Manual) PT INR POC ABG pH ABG pH POC ABG pCO2 POC ABG pO2 ABG pO2 ABG HCO3 ABG O2 Saturation ABG Base Excess ABG Hemoglobin Oxyhemoglobin Sodium Potassium Chloride Carbon Dioxide BUN Creatinine Glucose POC Glucose Lactic Acid 2.10 H* 2.30 H* Calcium Phosphorus Magnesium Total Bilirubin Direct Bilirubin AST ALT Alkaline Phosphatase Total Protein Albumin Lipase 6 L Urine WBC (Auto) U Epithel Cells (Auto) Urine Creatinine Hepatitis C Antibody Crossmatch 07/16/19 07/16/19 07/16/19 05:47 05:59 14:30 WBC RBC Hgb Hct MCHC RDW Plt Count Lymph % (Auto) [place] % (Auto) Eos % (Auto) Lymph # [place] # Eos # Seg Neutrophils % Seg Neuts % (Manual) Lymphocytes % (Manual) Monocytes % (Manual) Eosinophils % (Manual) Seg Neutrophils # Seg Neutrophils # Man Lymphocytes # (Manual) Monocytes # (Manual) Eosinophils # (Manual) PT 16.3 H INR 1.35 H POC ABG pH ABG pH POC ABG pCO2 POC ABG pO2 ABG pO2 ABG HCO3 ABG O2 Saturation ABG Base Excess ABG Hemoglobin Oxyhemoglobin Sodium Potassium Chloride Carbon Dioxide BUN Creatinine Glucose POC Glucose Lactic Acid Calcium Phosphorus Magnesium Total Bilirubin Direct Bilirubin AST ALT Alkaline Phosphatase Total Protein Albumin Lipase Urine WBC (Auto) > 182.0 H U Epithel Cells (Auto) 21.0 H Urine Creatinine 76.6 H Hepatitis C Antibody Crossmatch 07/16/19 07/17/19 07/17/19 23:27 00:03 00:03 WBC RBC Hgb Hct MCHC RDW Plt Count Lymph % (Auto) [place] % (Auto) Eos % (Auto) Lymph # [place] # Eos # Seg Neutrophils % Seg Neuts % (Manual) Lymphocytes % (Manual) Monocytes % (Manual) Eosinophils % (Manual) Seg Neutrophils # Seg Neutrophils # Man Lymphocytes # (Manual) Monocytes # (Manual) Eosinophils # (Manual) PT INR POC ABG pH 7.093 L ABG pH POC ABG pCO2 32.8 L POC ABG pO2 66 L ABG pO2 ABG HCO3 ABG O2 Saturation ABG Base Excess ABG Hemoglobin Oxyhemoglobin Sodium 148 H D Potassium Chloride 120.5 H Carbon Dioxide 14 L BUN 35 H Creatinine 1.5 H Glucose 42 L POC Glucose Lactic Acid 2.90 H* Calcium 5.7 L* D Phosphorus Magnesium Total Bilirubin Direct Bilirubin AST ALT Alkaline Phosphatase Total Protein Albumin Lipase Urine WBC (Auto) U Epithel Cells (Auto) Urine Creatinine Hepatitis C Antibody Crossmatch 07/17/19 07/17/19 07/17/19 03:01 03:29 03:40 WBC 13.2 H RBC Hgb Hct MCHC RDW Plt Count 116 L Lymph % (Auto) [place] % (Auto) Eos % (Auto) Lymph # [place] # Eos # Seg Neutrophils % Seg Neuts % (Manual) Lymphocytes % (Manual) 9.0 L Monocytes % (Manual) Eosinophils % (Manual) 24.0 H Seg Neutrophils # Seg Neutrophils # Man 8.6 H Lymphocytes # (Manual) Monocytes # (Manual) Eosinophils # (Manual) 3.2 H PT INR POC ABG pH 6.981 L ABG pH POC ABG pCO2 55.6 H POC ABG pO2 ABG pO2 ABG HCO3 ABG O2 Saturation ABG Base Excess ABG Hemoglobin Oxyhemoglobin Sodium Potassium Chloride Carbon Dioxide BUN Creatinine Glucose POC Glucose 64 L Lactic Acid Calcium Phosphorus Magnesium Total Bilirubin Direct Bilirubin AST ALT Alkaline Phosphatase Total Protein Albumin Lipase Urine WBC (Auto) U Epithel Cells (Auto) Urine Creatinine Hepatitis C Antibody Crossmatch 07/17/19 07/17/19 07/17/19 03:40 03:40 04:08 WBC RBC Hgb Hct MCHC RDW Plt Count Lymph % (Auto) [place] % (Auto) Eos % (Auto) Lymph # [place] # Eos # Seg Neutrophils % Seg Neuts % (Manual) Lymphocytes % (Manual) Monocytes % (Manual) Eosinophils % (Manual) Seg Neutrophils # Seg Neutrophils # Man Lymphocytes # (Manual) Monocytes # (Manual) Eosinophils # (Manual) PT INR POC ABG pH 7.056 L ABG pH POC ABG pCO2 POC ABG pO2 63 L ABG pO2 ABG HCO3 ABG O2 Saturation ABG Base Excess ABG Hemoglobin Oxyhemoglobin Sodium 147 H Potassium Chloride 120.2 H Carbon Dioxide 14 L BUN 36 H Creatinine 1.6 H Glucose POC Glucose Lactic Acid 3.20 H* Calcium 6.0 L Phosphorus Magnesium Total Bilirubin Direct Bilirubin AST ALT Alkaline Phosphatase Total Protein Albumin Lipase Urine WBC (Auto) U Epithel Cells (Auto) Urine Creatinine Hepatitis C Antibody Crossmatch 07/17/19 07/17/19 07/17/19 05:33 05:45 06:51 WBC RBC Hgb Hct MCHC RDW Plt Count Lymph % (Auto) [place] % (Auto) Eos % (Auto) Lymph # [place] # Eos # Seg Neutrophils % Seg Neuts % (Manual) Lymphocytes % (Manual) Monocytes % (Manual) Eosinophils % (Manual) Seg Neutrophils # Seg Neutrophils # Man Lymphocytes # (Manual) Monocytes # (Manual) Eosinophils # (Manual) PT INR POC ABG pH 7.061 L ABG pH POC ABG pCO2 49.0 H POC ABG pO2 ABG pO2 ABG HCO3 ABG O2 Saturation ABG Base Excess ABG Hemoglobin Oxyhemoglobin Sodium Potassium Chloride Carbon Dioxide BUN Creatinine Glucose POC Glucose 64 L 239 H Lactic Acid Calcium Phosphorus Magnesium Total Bilirubin Direct Bilirubin AST ALT Alkaline Phosphatase Total Protein Albumin Lipase Urine WBC (Auto) U Epithel Cells (Auto) Urine Creatinine Hepatitis C Antibody Crossmatch 07/17/19 07/17/19 07/17/19 10:57 12:56 18:11 WBC RBC Hgb Hct MCHC RDW Plt Count Lymph % (Auto) [place] % (Auto) Eos % (Auto) Lymph # [place] # Eos # Seg Neutrophils % Seg Neuts % (Manual) Lymphocytes % (Manual) Monocytes % (Manual) Eosinophils % (Manual) Seg Neutrophils # Seg Neutrophils # Man Lymphocytes # (Manual) Monocytes # (Manual) Eosinophils # (Manual) PT INR POC ABG pH ABG pH 7.192 L* POC ABG pCO2 POC ABG pO2 ABG pO2 67.5 L ABG HCO3 16.3 L ABG O2 Saturation 92.6 L ABG Base Excess -11.4 L ABG Hemoglobin Oxyhemoglobin 91.1 L Sodium Potassium Chloride Carbon Dioxide BUN Creatinine Glucose POC Glucose 107 H 122 H Lactic Acid Calcium Phosphorus Magnesium Total Bilirubin Direct Bilirubin AST ALT Alkaline Phosphatase Total Protein Albumin Lipase Urine WBC (Auto) U Epithel Cells (Auto) Urine Creatinine Hepatitis C Antibody Crossmatch 07/17/19 07/17/19 07/18/19 23:34 Unknown 04:00 WBC RBC Hgb Hct MCHC RDW Plt Count 85 L Lymph % (Auto) [place] % (Auto) Eos % (Auto) Lymph # [place] # Eos # Seg Neutrophils % Seg Neuts % (Manual) 82.0 H Lymphocytes % (Manual) 2.0 L Monocytes % (Manual) 12.0 H Eosinophils % (Manual) Seg Neutrophils # Seg Neutrophils # Man Lymphocytes # (Manual) 0.2 L Monocytes # (Manual) 1.1 H Eosinophils # (Manual) PT INR POC ABG pH ABG pH 7.237 L POC ABG pCO2 POC ABG pO2 ABG pO2 142.4 H ABG HCO3 17.0 L ABG O2 Saturation ABG Base Excess -9.8 L ABG Hemoglobin Oxyhemoglobin Sodium Potassium Chloride Carbon Dioxide BUN Creatinine Glucose POC Glucose 136 H Lactic Acid Calcium Phosphorus Magnesium Total Bilirubin Direct Bilirubin AST ALT Alkaline Phosphatase Total Protein Albumin Lipase Urine WBC (Auto) U Epithel Cells (Auto) Urine Creatinine Hepatitis C Antibody Crossmatch 07/18/19 07/18/19 07/18/19 04:00 05:31 05:51 WBC RBC Hgb Hct MCHC RDW Plt Count Lymph % (Auto) [place] % (Auto) Eos % (Auto) Lymph # [place] # Eos # Seg Neutrophils % Seg Neuts % (Manual) Lymphocytes % (Manual) Monocytes % (Manual) Eosinophils % (Manual) Seg Neutrophils # Seg Neutrophils # Man Lymphocytes # (Manual) Monocytes # (Manual) Eosinophils # (Manual) PT INR POC ABG pH 7.239 L ABG pH POC ABG pCO2 56.9 H POC ABG pO2 ABG pO2 ABG HCO3 ABG O2 Saturation ABG Base Excess ABG Hemoglobin Oxyhemoglobin Sodium 151 H Potassium 3.2 L D Chloride 114.7 H Carbon Dioxide BUN 42 H Creatinine 2.1 H Glucose 130 H POC Glucose 135 H Lactic Acid Calcium 6.0 L Phosphorus Magnesium Total Bilirubin 2.10 H Direct Bilirubin AST 59 H ALT 62 H Alkaline Phosphatase Total Protein 4.8 L D Albumin 2.0 L Lipase Urine WBC (Auto) U Epithel Cells (Auto) Urine Creatinine Hepatitis C Antibody Crossmatch 07/18/19 07/18/19 07/18/19 12:05 18:30 23:40 WBC RBC Hgb Hct MCHC RDW Plt Count Lymph % (Auto) [place] % (Auto) Eos % (Auto) Lymph # [place] # Eos # Seg Neutrophils % Seg Neuts % (Manual) Lymphocytes % (Manual) Monocytes % (Manual) Eosinophils % (Manual) Seg Neutrophils # Seg Neutrophils # Man Lymphocytes # (Manual) Monocytes # (Manual) Eosinophils # (Manual) PT INR POC ABG pH ABG pH POC ABG pCO2 POC ABG pO2 ABG pO2 ABG HCO3 ABG O2 Saturation ABG Base Excess ABG Hemoglobin Oxyhemoglobin Sodium Potassium Chloride Carbon Dioxide BUN Creatinine Glucose POC Glucose 126 H 131 H 163 H Lactic Acid Calcium Phosphorus Magnesium Total Bilirubin Direct Bilirubin AST ALT Alkaline Phosphatase Total Protein Albumin Lipase Urine WBC (Auto) U Epithel Cells (Auto) Urine Creatinine Hepatitis C Antibody Crossmatch 07/19/19 07/19/19 07/19/19 03:35 04:57 08:15 WBC 11.1 H RBC 3.64 L Hgb Hct MCHC RDW Plt Count 71 L Lymph % (Auto) [place] % (Auto) Eos % (Auto) Lymph # [place] # Eos # Seg Neutrophils % Seg Neuts % (Manual) Lymphocytes % (Manual) Monocytes % (Manual) Eosinophils % (Manual) Seg Neutrophils # Seg Neutrophils # Man Lymphocytes # (Manual) Monocytes # (Manual) Eosinophils # (Manual) PT INR POC ABG pH ABG pH 7.296 L POC ABG pCO2 POC ABG pO2 ABG pO2 78.7 L ABG HCO3 26.4 H ABG O2 Saturation ABG Base Excess ABG Hemoglobin 11.1 L Oxyhemoglobin 93.3 L Sodium Potassium Chloride Carbon Dioxide BUN Creatinine Glucose POC Glucose 170 H Lactic Acid Calcium Phosphorus Magnesium Total Bilirubin Direct Bilirubin AST ALT Alkaline Phosphatase Total Protein Albumin Lipase Urine WBC (Auto) U Epithel Cells (Auto) Urine Creatinine Hepatitis C Antibody Crossmatch 07/19/19 07/19/19 07/19/19 08:15 12:34 18:32 WBC RBC Hgb Hct MCHC RDW Plt Count Lymph % (Auto) [place] % (Auto) Eos % (Auto) Lymph # [place] # Eos # Seg Neutrophils % Seg Neuts % (Manual) Lymphocytes % (Manual) Monocytes % (Manual) Eosinophils % (Manual) Seg Neutrophils # Seg Neutrophils # Man Lymphocytes # (Manual) Monocytes # (Manual) Eosinophils # (Manual) PT INR POC ABG pH ABG pH POC ABG pCO2 POC ABG pO2 ABG pO2 ABG HCO3 ABG O2 Saturation ABG Base Excess ABG Hemoglobin Oxyhemoglobin Sodium 146 H Potassium 2.9 L* Chloride 107.9 H Carbon Dioxide BUN 35 H Creatinine 1.5 H Glucose 156 H POC Glucose 160 H 138 H Lactic Acid Calcium 6.6 L Phosphorus Magnesium Total Bilirubin Direct Bilirubin AST ALT Alkaline Phosphatase Total Protein Albumin Lipase Urine WBC (Auto) U Epithel Cells (Auto) Urine Creatinine Hepatitis C Antibody Crossmatch 07/19/19 07/19/19 07/20/19 23:41 Unknown 04:20 WBC RBC Hgb Hct MCHC RDW Plt Count Lymph % (Auto) [place] % (Auto) Eos % (Auto) Lymph # [place] # Eos # Seg Neutrophils % Seg Neuts % (Manual) Lymphocytes % (Manual) Monocytes % (Manual) Eosinophils % (Manual) Seg Neutrophils # Seg Neutrophils # Man Lymphocytes # (Manual) Monocytes # (Manual) Eosinophils # (Manual) PT INR POC ABG pH ABG pH 7.316 L POC ABG pCO2 POC ABG pO2 ABG pO2 ABG HCO3 27.9 H ABG O2 Saturation ABG Base Excess ABG Hemoglobin Oxyhemoglobin 94.0 L Sodium 149 H Potassium 3.2 L Chloride 112.3 H Carbon Dioxide BUN 34 H Creatinine Glucose 162 H POC Glucose 145 H Lactic Acid Calcium 7.0 L Phosphorus Magnesium 1.50 L Total Bilirubin Direct Bilirubin AST ALT Alkaline Phosphatase Total Protein Albumin Lipase Urine WBC (Auto) U Epithel Cells (Auto) Urine Creatinine Hepatitis C Antibody Crossmatch 07/20/19 07/20/19 07/20/19 05:25 07:50 07:50 WBC 12.6 H RBC 3.51 L Hgb Hct MCHC RDW Plt Count 56 L Lymph % (Auto) [place] % (Auto) Eos % (Auto) Lymph # [place] # Eos # Seg Neutrophils % Seg Neuts % (Manual) 89.0 H Lymphocytes % (Manual) 5.0 L Monocytes % (Manual) Eosinophils % (Manual) Seg Neutrophils # Seg Neutrophils # Man 11.2 H Lymphocytes # (Manual) 0.6 L Monocytes # (Manual) Eosinophils # (Manual) PT INR POC ABG pH ABG pH POC ABG pCO2 POC ABG pO2 ABG pO2 ABG HCO3 ABG O2 Saturation ABG Base Excess ABG Hemoglobin Oxyhemoglobin Sodium 151 H Potassium 3.4 L Chloride 114.7 H Carbon Dioxide 31 H BUN 30 H Creatinine Glucose 148 H POC Glucose 141 H Lactic Acid Calcium 7.3 L Phosphorus Magnesium Total Bilirubin Direct Bilirubin AST ALT Alkaline Phosphatase Total Protein Albumin Lipase Urine WBC (Auto) U Epithel Cells (Auto) Urine Creatinine Hepatitis C Antibody Crossmatch 07/20/19 07/20/19 07/20/19 15:47 17:25 23:57 WBC RBC Hgb Hct MCHC RDW Plt Count Lymph % (Auto) [place] % (Auto) Eos % (Auto) Lymph # [place] # Eos # Seg Neutrophils % Seg Neuts % (Manual) Lymphocytes % (Manual) Monocytes % (Manual) Eosinophils % (Manual) Seg Neutrophils # Seg Neutrophils # Man Lymphocytes # (Manual) Monocytes # (Manual) Eosinophils # (Manual) PT INR POC ABG pH ABG pH POC ABG pCO2 POC ABG pO2 ABG pO2 ABG HCO3 ABG O2 Saturation ABG Base Excess ABG Hemoglobin Oxyhemoglobin Sodium Potassium Chloride Carbon Dioxide BUN Creatinine Glucose POC Glucose 160 H 165 H 122 H Lactic Acid Calcium Phosphorus Magnesium Total Bilirubin Direct Bilirubin AST ALT Alkaline Phosphatase Total Protein Albumin Lipase Urine WBC (Auto) U Epithel Cells (Auto) Urine Creatinine Hepatitis C Antibody Crossmatch 07/21/19 07/21/19 07/21/19 05:00 05:00 05:00 WBC 15.8 H RBC Hgb Hct MCHC RDW Plt Count 56 L Lymph % (Auto) [place] % (Auto) Eos % (Auto) Lymph # [place] # Eos # Seg Neutrophils % Seg Neuts % (Manual) Lymphocytes % (Manual) Monocytes % (Manual) Eosinophils % (Manual) Seg Neutrophils # Seg Neutrophils # Man Lymphocytes # (Manual) Monocytes # (Manual) Eosinophils # (Manual) PT INR POC ABG pH ABG pH POC ABG pCO2 POC ABG pO2 ABG pO2 ABG HCO3 ABG O2 Saturation ABG Base Excess ABG Hemoglobin Oxyhemoglobin Sodium 147 H Potassium 3.5 L Chloride 111.4 H Carbon Dioxide BUN 21 H Creatinine Glucose 107 H POC Glucose Lactic Acid Calcium 7.6 L Phosphorus 1.60 L Magnesium Total Bilirubin 4.80 H Direct Bilirubin AST 48 H ALT Alkaline Phosphatase 131 H Total Protein 4.3 L Albumin 1.5 L Lipase Urine WBC (Auto) U Epithel Cells (Auto) Urine Creatinine Hepatitis C Antibody Crossmatch 07/21/19 07/21/19 07/21/19 05:34 12:12 18:22 WBC RBC Hgb Hct MCHC RDW Plt Count Lymph % (Auto) [place] % (Auto) Eos % (Auto) Lymph # [place] # Eos # Seg Neutrophils % Seg Neuts % (Manual) Lymphocytes % (Manual) Monocytes % (Manual) Eosinophils % (Manual) Seg Neutrophils # Seg Neutrophils # Man Lymphocytes # (Manual) Monocytes # (Manual) Eosinophils # (Manual) PT INR POC ABG pH ABG pH POC ABG pCO2 POC ABG pO2 ABG pO2 ABG HCO3 ABG O2 Saturation ABG Base Excess ABG Hemoglobin Oxyhemoglobin Sodium Potassium Chloride Carbon Dioxide BUN Creatinine Glucose POC Glucose 119 H 108 H 125 H Lactic Acid Calcium Phosphorus Magnesium Total Bilirubin Direct Bilirubin AST ALT Alkaline Phosphatase Total Protein Albumin Lipase Urine WBC (Auto) U Epithel Cells (Auto) Urine Creatinine Hepatitis C Antibody Crossmatch 07/21/19 07/21/19 07/22/19 23:27 Unknown 04:25 WBC RBC Hgb Hct MCHC RDW Plt Count Lymph % (Auto) [place] % (Auto) Eos % (Auto) Lymph # [place] # Eos # Seg Neutrophils % Seg Neuts % (Manual) Lymphocytes % (Manual) Monocytes % (Manual) Eosinophils % (Manual) Seg Neutrophils # Seg Neutrophils # Man Lymphocytes # (Manual) Monocytes # (Manual) Eosinophils # (Manual) PT INR POC ABG pH ABG pH POC ABG pCO2 POC ABG pO2 ABG pO2 61.9 L 68.7 L ABG HCO3 28.9 H 29.1 H ABG O2 Saturation 93.5 L 94.4 L ABG Base Excess 3.5 H ABG Hemoglobin 10.8 L 11.5 L Oxyhemoglobin 91.6 L 92.3 L Sodium Potassium Chloride Carbon Dioxide BUN Creatinine Glucose POC Glucose 126 H Lactic Acid Calcium Phosphorus Magnesium Total Bilirubin Direct Bilirubin AST ALT Alkaline Phosphatase Total Protein Albumin Lipase Urine WBC (Auto) U Epithel Cells (Auto) Urine Creatinine Hepatitis C Antibody Crossmatch 07/22/19 07/22/19 07/22/19 05:25 07:00 07:00 WBC 14.9 H RBC Hgb Hct MCHC RDW Plt Count 87 L Lymph % (Auto) [place] % (Auto) Eos % (Auto) Lymph # [place] # Eos # Seg Neutrophils % Seg Neuts % (Manual) Lymphocytes % (Manual) Monocytes % (Manual) Eosinophils % (Manual) Seg Neutrophils # Seg Neutrophils # Man Lymphocytes # (Manual) Monocytes # (Manual) Eosinophils # (Manual) PT INR POC ABG pH ABG pH POC ABG pCO2 POC ABG pO2 ABG pO2 ABG HCO3 ABG O2 Saturation ABG Base Excess ABG Hemoglobin Oxyhemoglobin Sodium 147 H Potassium 3.3 L Chloride 110.9 H Carbon Dioxide BUN Creatinine 0.6 L Glucose 107 H POC Glucose 107 H Lactic Acid Calcium 7.5 L Phosphorus Magnesium Total Bilirubin Direct Bilirubin AST ALT Alkaline Phosphatase Total Protein Albumin Lipase Urine WBC (Auto) U Epithel Cells (Auto) Urine Creatinine Hepatitis C Antibody Crossmatch 07/22/19 07/22/19 07/23/19 17:41 23:40 04:50 WBC RBC Hgb Hct MCHC RDW Plt Count Lymph % (Auto) [place] % (Auto) Eos % (Auto) Lymph # [place] # Eos # Seg Neutrophils % Seg Neuts % (Manual) Lymphocytes % (Manual) Monocytes % (Manual) Eosinophils % (Manual) Seg Neutrophils # Seg Neutrophils # Man Lymphocytes # (Manual) Monocytes # (Manual) Eosinophils # (Manual) PT INR POC ABG pH ABG pH POC ABG pCO2 POC ABG pO2 ABG pO2 ABG HCO3 ABG O2 Saturation ABG Base Excess ABG Hemoglobin Oxyhemoglobin Sodium Potassium Chloride Carbon Dioxide BUN Creatinine 0.6 L Glucose 102 H POC Glucose 132 H 123 H Lactic Acid Calcium 7.8 L Phosphorus Magnesium 1.50 L Total Bilirubin Direct Bilirubin AST ALT Alkaline Phosphatase Total Protein Albumin Lipase Urine WBC (Auto) U Epithel Cells (Auto) Urine Creatinine Hepatitis C Antibody Crossmatch 07/23/19 07/23/19 07/23/19 05:00 10:50 10:50 WBC 13.0 H RBC 3.41 L Hgb Hct MCHC RDW Plt Count 100 L Lymph % (Auto) [place] % (Auto) Eos % (Auto) Lymph # [place] # Eos # Seg Neutrophils % Seg Neuts % (Manual) Lymphocytes % (Manual) Monocytes % (Manual) Eosinophils % (Manual) Seg Neutrophils # Seg Neutrophils # Man Lymphocytes # (Manual) Monocytes # (Manual) Eosinophils # (Manual) PT INR POC ABG pH ABG pH POC ABG pCO2 POC ABG pO2 ABG pO2 100.4 H ABG HCO3 28.7 H ABG O2 Saturation ABG Base Excess ABG Hemoglobin 11.0 L Oxyhemoglobin Sodium Potassium Chloride Carbon Dioxide BUN Creatinine Glucose POC Glucose Lactic Acid Calcium Phosphorus Magnesium Total Bilirubin 2.60 H Direct Bilirubin 2.2 H AST 41 H ALT Alkaline Phosphatase Total Protein 4.4 L Albumin 1.4 L Lipase Urine WBC (Auto) U Epithel Cells (Auto) Urine Creatinine Hepatitis C Antibody Crossmatch 07/23/19 07/23/19 07/23/19 11:49 11:49 17:42 WBC RBC Hgb Hct MCHC RDW Plt Count Lymph % (Auto) [place] % (Auto) Eos % (Auto) Lymph # [place] # Eos # Seg Neutrophils % Seg Neuts % (Manual) Lymphocytes % (Manual) Monocytes % (Manual) Eosinophils % (Manual) Seg Neutrophils # Seg Neutrophils # Man Lymphocytes # (Manual) Monocytes # (Manual) Eosinophils # (Manual) PT INR POC ABG pH ABG pH POC ABG pCO2 POC ABG pO2 ABG pO2 ABG HCO3 ABG O2 Saturation ABG Base Excess ABG Hemoglobin Oxyhemoglobin Sodium Potassium Chloride Carbon Dioxide BUN Creatinine Glucose POC Glucose 109 H 124 H Lactic Acid Calcium Phosphorus Magnesium Total Bilirubin Direct Bilirubin AST ALT Alkaline Phosphatase Total Protein Albumin Lipase Urine WBC (Auto) U Epithel Cells (Auto) Urine Creatinine Hepatitis C Antibody Reactive A Crossmatch 07/23/19 07/24/19 07/24/19 23:37 03:34 03:34 WBC 13.7 H RBC 3.39 L Hgb Hct 29.9 L MCHC RDW Plt Count 116 L Lymph % (Auto) [place] % (Auto) Eos % (Auto) Lymph # [place] # Eos # Seg Neutrophils % 77.7 H Seg Neuts % (Manual) Lymphocytes % (Manual) Monocytes % (Manual) Eosinophils % (Manual) Seg Neutrophils # 10.6 H Seg Neutrophils # Man Lymphocytes # (Manual) Monocytes # (Manual) Eosinophils # (Manual) PT INR POC ABG pH ABG pH POC ABG pCO2 POC ABG pO2 ABG pO2 ABG HCO3 ABG O2 Saturation ABG Base Excess ABG Hemoglobin Oxyhemoglobin Sodium Potassium 3.3 L Chloride Carbon Dioxide 35 H BUN Creatinine 0.6 L Glucose 139 H POC Glucose 145 H Lactic Acid Calcium 7.7 L Phosphorus Magnesium Total Bilirubin Direct Bilirubin AST ALT Alkaline Phosphatase Total Protein Albumin Lipase Urine WBC (Auto) U Epithel Cells (Auto) Urine Creatinine Hepatitis C Antibody Crossmatch 07/24/19 07/24/19 07/24/19 04:50 05:11 11:29 WBC RBC Hgb Hct MCHC RDW Plt Count Lymph % (Auto) [place] % (Auto) Eos % (Auto) Lymph # [place] # Eos # Seg Neutrophils % Seg Neuts % (Manual) Lymphocytes % (Manual) Monocytes % (Manual) Eosinophils % (Manual) Seg Neutrophils # Seg Neutrophils # Man Lymphocytes # (Manual) Monocytes # (Manual) Eosinophils # (Manual) PT INR POC ABG pH ABG pH 7.457 H POC ABG pCO2 POC ABG pO2 ABG pO2 138.3 H ABG HCO3 32.1 H ABG O2 Saturation ABG Base Excess 7.4 H ABG Hemoglobin 8.2 L Oxyhemoglobin Sodium Potassium Chloride Carbon Dioxide BUN Creatinine Glucose POC Glucose 128 H 123 H Lactic Acid Calcium Phosphorus Magnesium Total Bilirubin Direct Bilirubin AST ALT Alkaline Phosphatase Total Protein Albumin Lipase Urine WBC (Auto) U Epithel Cells (Auto) Urine Creatinine Hepatitis C Antibody Crossmatch 07/24/19 07/24/19 07/25/19 17:50 23:39 04:09 WBC 12.5 H RBC 3.13 L Hgb 9.3 L Hct 27.7 L MCHC RDW Plt Count Lymph % (Auto) [place] % (Auto) Eos % (Auto) Lymph # [place] # Eos # Seg Neutrophils % 77.2 H Seg Neuts % (Manual) Lymphocytes % (Manual) Monocytes % (Manual) Eosinophils % (Manual) Seg Neutrophils # 9.6 H Seg Neutrophils # Man Lymphocytes # (Manual) Monocytes # (Manual) Eosinophils # (Manual) PT INR POC ABG pH ABG pH POC ABG pCO2 POC ABG pO2 ABG pO2 ABG HCO3 ABG O2 Saturation ABG Base Excess ABG Hemoglobin Oxyhemoglobin Sodium Potassium Chloride Carbon Dioxide BUN Creatinine Glucose POC Glucose 125 H 144 H Lactic Acid Calcium Phosphorus Magnesium Total Bilirubin Direct Bilirubin AST ALT Alkaline Phosphatase Total Protein Albumin Lipase Urine WBC (Auto) U Epithel Cells (Auto) Urine Creatinine Hepatitis C Antibody Crossmatch 07/25/19 07/25/19 07/25/19 04:09 05:12 05:29 WBC RBC Hgb Hct MCHC RDW Plt Count Lymph % (Auto) [place] % (Auto) Eos % (Auto) Lymph # [place] # Eos # Seg Neutrophils % Seg Neuts % (Manual) Lymphocytes % (Manual) Monocytes % (Manual) Eosinophils % (Manual) Seg Neutrophils # Seg Neutrophils # Man Lymphocytes # (Manual) Monocytes # (Manual) Eosinophils # (Manual) PT INR POC ABG pH ABG pH POC ABG pCO2 POC ABG pO2 ABG pO2 65.7 L ABG HCO3 33.6 H ABG O2 Saturation 92.8 L ABG Base Excess 7.9 H ABG Hemoglobin 11.9 L Oxyhemoglobin 90.7 L Sodium Potassium 3.1 L Chloride Carbon Dioxide 34 H BUN Creatinine 0.6 L Glucose 159 H POC Glucose 168 H Lactic Acid Calcium 7.5 L Phosphorus Magnesium Total Bilirubin 1.30 H Direct Bilirubin AST ALT Alkaline Phosphatase Total Protein 4.8 L Albumin 1.4 L Lipase Urine WBC (Auto) U Epithel Cells (Auto) Urine Creatinine Hepatitis C Antibody Crossmatch 07/25/19 07/25/19 07/26/19 11:34 23:30 04:25 WBC RBC Hgb Hct MCHC RDW Plt Count Lymph % (Auto) [place] % (Auto) Eos % (Auto) Lymph # [place] # Eos # Seg Neutrophils % Seg Neuts % (Manual) Lymphocytes % (Manual) Monocytes % (Manual) Eosinophils % (Manual) Seg Neutrophils # Seg Neutrophils # Man Lymphocytes # (Manual) Monocytes # (Manual) Eosinophils # (Manual) PT INR POC ABG pH ABG pH POC ABG pCO2 POC ABG pO2 ABG pO2 101.9 H ABG HCO3 32.0 H ABG O2 Saturation ABG Base Excess 6.5 H ABG Hemoglobin 9.9 L Oxyhemoglobin Sodium Potassium Chloride Carbon Dioxide BUN Creatinine Glucose POC Glucose 124 H 126 H Lactic Acid Calcium Phosphorus Magnesium Total Bilirubin Direct Bilirubin AST ALT Alkaline Phosphatase Total Protein Albumin Lipase Urine WBC (Auto) U Epithel Cells (Auto) Urine Creatinine Hepatitis C Antibody Crossmatch 07/26/19 07/26/19 07/26/19 05:00 05:00 05:38 WBC 12.3 H RBC 3.11 L Hgb 9.2 L Hct 28.2 L MCHC RDW 15.4 H Plt Count Lymph % (Auto) [place] % (Auto) 7.8 H Eos % (Auto) Lymph # [place] # 1.0 H Eos # Seg Neutrophils % 73.0 H Seg Neuts % (Manual) Lymphocytes % (Manual) Monocytes % (Manual) Eosinophils % (Manual) Seg Neutrophils # 8.9 H Seg Neutrophils # Man Lymphocytes # (Manual) Monocytes # (Manual) Eosinophils # (Manual) PT INR POC ABG pH ABG pH POC ABG pCO2 POC ABG pO2 ABG pO2 ABG HCO3 ABG O2 Saturation ABG Base Excess ABG Hemoglobin Oxyhemoglobin Sodium Potassium Chloride Carbon Dioxide 32 H BUN Creatinine Glucose 135 H POC Glucose 145 H Lactic Acid Calcium 7.9 L Phosphorus Magnesium Total Bilirubin Direct Bilirubin AST ALT Alkaline Phosphatase Total Protein Albumin Lipase Urine WBC (Auto) U Epithel Cells (Auto) Urine Creatinine Hepatitis C Antibody Crossmatch 07/26/19 07/26/19 07/26/19 11:16 17:55 23:26 WBC RBC Hgb Hct MCHC RDW Plt Count Lymph % (Auto) [place] % (Auto) Eos % (Auto) Lymph # [place] # Eos # Seg Neutrophils % Seg Neuts % (Manual) Lymphocytes % (Manual) Monocytes % (Manual) Eosinophils % (Manual) Seg Neutrophils # Seg Neutrophils # Man Lymphocytes # (Manual) Monocytes # (Manual) Eosinophils # (Manual) PT INR POC ABG pH ABG pH POC ABG pCO2 POC ABG pO2 ABG pO2 ABG HCO3 ABG O2 Saturation ABG Base Excess ABG Hemoglobin Oxyhemoglobin Sodium Potassium Chloride Carbon Dioxide BUN Creatinine Glucose POC Glucose 140 H 123 H 128 H Lactic Acid Calcium Phosphorus Magnesium Total Bilirubin Direct Bilirubin AST ALT Alkaline Phosphatase Total Protein Albumin Lipase Urine WBC (Auto) U Epithel Cells (Auto) Urine Creatinine Hepatitis C Antibody Crossmatch 07/27/19 07/27/19 07/27/19 05:29 05:40 05:40 WBC 13.2 H RBC 3.26 L Hgb 9.6 L Hct 29.5 L MCHC RDW Plt Count Lymph % (Auto) [place] % (Auto) Eos % (Auto) Lymph # [place] # 0.9 H Eos # Seg Neutrophils % 73.6 H Seg Neuts % (Manual) Lymphocytes % (Manual) Monocytes % (Manual) Eosinophils % (Manual) Seg Neutrophils # 9.7 H Seg Neutrophils # Man Lymphocytes # (Manual) Monocytes # (Manual) Eosinophils # (Manual) PT INR POC ABG pH ABG pH POC ABG pCO2 POC ABG pO2 ABG pO2 ABG HCO3 ABG O2 Saturation ABG Base Excess ABG Hemoglobin Oxyhemoglobin Sodium Potassium Chloride Carbon Dioxide BUN Creatinine 0.6 L Glucose 136 H POC Glucose 143 H Lactic Acid Calcium 8.2 L Phosphorus Magnesium Total Bilirubin Direct Bilirubin AST ALT Alkaline Phosphatase Total Protein Albumin Lipase Urine WBC (Auto) U Epithel Cells (Auto) Urine Creatinine Hepatitis C Antibody Crossmatch 07/27/19 07/27/19 07/27/19 06:29 12:32 17:24 WBC RBC Hgb Hct MCHC RDW Plt Count Lymph % (Auto) [place] % (Auto) Eos % (Auto) Lymph # [place] # Eos # Seg Neutrophils % Seg Neuts % (Manual) Lymphocytes % (Manual) Monocytes % (Manual) Eosinophils % (Manual) Seg Neutrophils # Seg Neutrophils # Man Lymphocytes # (Manual) Monocytes # (Manual) Eosinophils # (Manual) PT INR POC ABG pH 7.460 H ABG pH POC ABG pCO2 POC ABG pO2 60 L ABG pO2 ABG HCO3 ABG O2 Saturation ABG Base Excess ABG Hemoglobin Oxyhemoglobin Sodium Potassium Chloride Carbon Dioxide BUN Creatinine Glucose POC Glucose 139 H 126 H Lactic Acid Calcium Phosphorus Magnesium Total Bilirubin Direct Bilirubin AST ALT Alkaline Phosphatase Total Protein Albumin Lipase Urine WBC (Auto) U Epithel Cells (Auto) Urine Creatinine Hepatitis C Antibody Crossmatch 07/28/19 07/28/1919 00:00 05:42 11:37 WBC RBC Hgb Hct MCHC RDW Plt Count Lymph % (Auto) [place] % (Auto) Eos % (Auto) Lymph # [place] # Eos # Seg Neutrophils % Seg Neuts % (Manual) Lymphocytes % (Manual) Monocytes % (Manual) Eosinophils % (Manual) Seg Neutrophils # Seg Neutrophils # Man Lymphocytes # (Manual) Monocytes # (Manual) Eosinophils # (Manual) PT INR POC ABG pH ABG pH POC ABG pCO2 POC ABG pO2 ABG pO2 ABG HCO3 ABG O2 Saturation ABG Base Excess ABG Hemoglobin Oxyhemoglobin Sodium Potassium Chloride Carbon Dioxide BUN Creatinine Glucose POC Glucose 120 H 114 H 111 H Lactic Acid Calcium Phosphorus Magnesium Total Bilirubin Direct Bilirubin AST ALT Alkaline Phosphatase Total Protein Albumin Lipase Urine WBC (Auto) U Epithel Cells (Auto) Urine Creatinine Hepatitis C Antibody Crossmatch 07/28/19 07/28/19 07/28/19 11:50 11:50 23:49 WBC 22.7 H RBC 3.63 L Hgb Hct MCHC RDW Plt Count 520 H Lymph % (Auto) [place] % (Auto) Eos % (Auto) Lymph # [place] # Eos # Seg Neutrophils % Seg Neuts % (Manual) Lymphocytes % (Manual) Monocytes % (Manual) Eosinophils % (Manual) Seg Neutrophils # Seg Neutrophils # Man Lymphocytes # (Manual) Monocytes # (Manual) Eosinophils # (Manual) PT INR POC ABG pH ABG pH POC ABG pCO2 POC ABG pO2 ABG pO2 ABG HCO3 ABG O2 Saturation ABG Base Excess ABG Hemoglobin Oxyhemoglobin Sodium 134 L Potassium 5.6 H D Chloride 96.9 L Carbon Dioxide BUN Creatinine Glucose 121 H POC Glucose 129 H Lactic Acid Calcium Phosphorus Magnesium Total Bilirubin Direct Bilirubin AST ALT Alkaline Phosphatase Total Protein Albumin Lipase Urine WBC (Auto) U Epithel Cells (Auto) Urine Creatinine Hepatitis C Antibody Crossmatch 07/28/19 07/29/19 07/29/19 Unknown 03:50 05:13 WBC RBC Hgb Hct MCHC RDW Plt Count Lymph % (Auto) [place] % (Auto) Eos % (Auto) Lymph # [place] # Eos # Seg Neutrophils % Seg Neuts % (Manual) Lymphocytes % (Manual) Monocytes % (Manual) Eosinophils % (Manual) Seg Neutrophils # Seg Neutrophils # Man Lymphocytes # (Manual) Monocytes # (Manual) Eosinophils # (Manual) PT INR POC ABG pH ABG pH 7.498 H 7.453 H POC ABG pCO2 POC ABG pO2 ABG pO2 59.8 L ABG HCO3 29.0 H ABG O2 Saturation 94.1 L ABG Base Excess 4.6 H ABG Hemoglobin 9.1 L Oxyhemoglobin 91.5 L Sodium Potassium Chloride Carbon Dioxide BUN Creatinine Glucose POC Glucose 132 H Lactic Acid Calcium Phosphorus Magnesium Total Bilirubin Direct Bilirubin AST ALT Alkaline Phosphatase Total Protein Albumin Lipase Urine WBC (Auto) U Epithel Cells (Auto) Urine Creatinine Hepatitis C Antibody Crossmatch 07/29/19 07/29/19 07/29/19 06:00 06:00 11:56 WBC 12.3 H RBC 3.02 L Hgb 9.1 L Hct 26.7 L D MCHC RDW Plt Count 475 H Lymph % (Auto) [place] % (Auto) 11.0 H Eos % (Auto) Lymph # [place] # 1.4 H Eos # 0.5 H Seg Neutrophils % Seg Neuts % (Manual) Lymphocytes % (Manual) Monocytes % (Manual) Eosinophils % (Manual) Seg Neutrophils # Seg Neutrophils # Man Lymphocytes # (Manual) Monocytes # (Manual) Eosinophils # (Manual) PT INR POC ABG pH ABG pH POC ABG pCO2 POC ABG pO2 ABG pO2 ABG HCO3 ABG O2 Saturation ABG Base Excess ABG Hemoglobin Oxyhemoglobin Sodium 136 L Potassium Chloride 97.5 L Carbon Dioxide BUN 19 H Creatinine Glucose 136 H POC Glucose 139 H Lactic Acid Calcium Phosphorus Magnesium Total Bilirubin Direct Bilirubin AST ALT Alkaline Phosphatase Total Protein Albumin Lipase Urine WBC (Auto) U Epithel Cells (Auto) Urine Creatinine Hepatitis C Antibody Crossmatch 07/29/19 07/29/19 07/30/19 17:38 23:30 05:00 WBC 11.2 H RBC 3.05 L Hgb 9.1 L Hct 27.4 L MCHC RDW Plt Count 576 H Lymph % (Auto) [place] % (Auto) 12.5 H Eos % (Auto) 5.2 H Lymph # [place] # 1.4 H Eos # 0.6 H Seg Neutrophils % Seg Neuts % (Manual) Lymphocytes % (Manual) Monocytes % (Manual) Eosinophils % (Manual) Seg Neutrophils # Seg Neutrophils # Man Lymphocytes # (Manual) Monocytes # (Manual) Eosinophils # (Manual) PT INR POC ABG pH ABG pH POC ABG pCO2 POC ABG pO2 ABG pO2 ABG HCO3 ABG O2 Saturation ABG Base Excess ABG Hemoglobin Oxyhemoglobin Sodium Potassium Chloride Carbon Dioxide BUN Creatinine Glucose POC Glucose 158 H 114 H Lactic Acid Calcium Phosphorus Magnesium Total Bilirubin Direct Bilirubin AST ALT Alkaline Phosphatase Total Protein Albumin Lipase Urine WBC (Auto) U Epithel Cells (Auto) Urine Creatinine Hepatitis C Antibody Crossmatch 07/30/19 07/30/19 07/30/19 05:00 05:37 12:32 WBC RBC Hgb Hct MCHC RDW Plt Count Lymph % (Auto) [place] % (Auto) Eos % (Auto) Lymph # [place] # Eos # Seg Neutrophils % Seg Neuts % (Manual) Lymphocytes % (Manual) Monocytes % (Manual) Eosinophils % (Manual) Seg Neutrophils # Seg Neutrophils # Man Lymphocytes # (Manual) Monocytes # (Manual) Eosinophils # (Manual) PT INR POC ABG pH ABG pH POC ABG pCO2 POC ABG pO2 ABG pO2 ABG HCO3 ABG O2 Saturation ABG Base Excess ABG Hemoglobin Oxyhemoglobin Sodium 136 L Potassium Chloride 97.1 L Carbon Dioxide BUN 21 H Creatinine Glucose 131 H POC Glucose 128 H 138 H Lactic Acid Calcium Phosphorus Magnesium Total Bilirubin Direct Bilirubin AST ALT Alkaline Phosphatase Total Protein Albumin Lipase Urine WBC (Auto) U Epithel Cells (Auto) Urine Creatinine Hepatitis C Antibody Crossmatch 07/30/19 07/30/19 07/30/19 13:53 20:48 23:54 WBC RBC Hgb Hct MCHC RDW Plt Count Lymph % (Auto) [place] % (Auto) Eos % (Auto) Lymph # [place] # Eos # Seg Neutrophils % Seg Neuts % (Manual) Lymphocytes % (Manual) Monocytes % (Manual) Eosinophils % (Manual) Seg Neutrophils # Seg Neutrophils # Man Lymphocytes # (Manual) Monocytes # (Manual) Eosinophils # (Manual) PT INR POC ABG pH ABG pH POC ABG pCO2 POC ABG pO2 ABG pO2 122.4 H ABG HCO3 ABG O2 Saturation ABG Base Excess -2.4 L ABG Hemoglobin 9.4 L Oxyhemoglobin Sodium Potassium Chloride Carbon Dioxide BUN Creatinine Glucose POC Glucose 162 H Lactic Acid Calcium Phosphorus Magnesium Total Bilirubin Direct Bilirubin AST ALT Alkaline Phosphatase Total Protein Albumin Lipase Urine WBC (Auto) U Epithel Cells (Auto) Urine Creatinine Hepatitis C Antibody Crossmatch See Detail 07/31/19 07/31/19 07/31/19 05:16 09:45 09:45 WBC 12.1 H RBC 3.26 L Hgb 10.0 L Hct 28.9 L MCHC 35 H RDW Plt Count 566 H Lymph % (Auto) 8.4 L [place] % (Auto) Eos % (Auto) Lymph # 1.0 L [place] # Eos # Seg Neutrophils % 85.0 H Seg Neuts % (Manual) Lymphocytes % (Manual) Monocytes % (Manual) Eosinophils % (Manual) Seg Neutrophils # 10.3 H Seg Neutrophils # Man Lymphocytes # (Manual) Monocytes # (Manual) Eosinophils # (Manual) PT INR POC ABG pH ABG pH POC ABG pCO2 POC ABG pO2 ABG pO2 ABG HCO3 ABG O2 Saturation ABG Base Excess ABG Hemoglobin Oxyhemoglobin Sodium Potassium Chloride Carbon Dioxide BUN 23 H Creatinine Glucose 165 H POC Glucose 221 H Lactic Acid Calcium Phosphorus Magnesium Total Bilirubin Direct Bilirubin AST ALT Alkaline Phosphatase Total Protein Albumin Lipase Urine WBC (Auto) U Epithel Cells (Auto) Urine Creatinine Hepatitis C Antibody Crossmatch 07/31/19 Unknown WBC RBC Hgb Hct MCHC RDW Plt Count Lymph % (Auto) [place] % (Auto) Eos % (Auto) Lymph # [place] # Eos # Seg Neutrophils % Seg Neuts % (Manual) Lymphocytes % (Manual) Monocytes % (Manual) Eosinophils % (Manual) Seg Neutrophils # Seg Neutrophils # Man Lymphocytes # (Manual) Monocytes # (Manual) Eosinophils # (Manual) PT INR POC ABG pH ABG pH POC ABG pCO2 POC ABG pO2 ABG pO2 128.9 H ABG HCO3 ABG O2 Saturation ABG Base Excess -2.1 L ABG Hemoglobin 11.3 L Oxyhemoglobin Sodium Potassium Chloride Carbon Dioxide BUN Creatinine Glucose POC Glucose Lactic Acid Calcium Phosphorus Magnesium Total Bilirubin Direct Bilirubin AST ALT Alkaline Phosphatase Total Protein Albumin Lipase Urine WBC (Auto) U Epithel Cells (Auto) Urine Creatinine Hepatitis C Antibody Crossmatch
--- NOTE | 2019-07-31 12:09 | Progress Note ---
Subjective Date of service: 07/31/19 Principal diagnosis: Acute respiratory failure Interval history: S/P LEFT NEPHRECTOMY - 07-30-19 (WILL/KAREN) This is a 44 yo F With past medical history of bipolar disorder, who presents to [facility] with abdominal pain fever and right foot pain. She was seen on 06/28 in ER for insect bite on her right big toe, for which she was treated with 10 days of antibiotics with Augmentin. However patient returned to ER c/o intermittent fevers, body aches, weakness and nausea and malaise generalized abdominal pain for worsening redness of her right foot. Labs showed elevated WBC > 11.7, along with signs of UTI with UA showing > 182 WBC/HPF. CT A/P also showed L perinephric stranding. Pt also showed signs of acute renal failure with BUN/Cr at 46/2.2mg/dl. Multiple complaints but found to be hypotensive requiring vasopressor therapypt is admitted for sepsis Repeat CT---left kidney abscess off pressors mother at bedside/hydronephrosis during pregancy in the past (?side) pt alert abd -- left flank incision -clean MIRTHA intact gordon---clear urine a/p S/P LEFT NEPHRECTOMY - 07-30-19 (WILL/KAREN) - ABSCESS CONTINUE PRESENT CARE Objective - Constitutional Vitals: Vital Signs - 12hr 07/31/19 07/31/19 07/31/19 00:30 01:00 01:30 Temperature Pulse Rate 80 74 70 Respiratory 26 H 26 H 26 H Rate Blood Pressure 97/56 96/55 90/47 O2 Sat by Pulse 98 99 99 Oximetry 07/31/19 07/31/19 07/31/19 02:00 02:31 03:00 Temperature Pulse Rate 64 88 111 H Respiratory 26 H 12 19 Rate Blood Pressure 91/47 123/76 125/81 O2 Sat by Pulse 99 100 100 Oximetry 07/31/19 07/31/19 07/31/19 03:30 04:00 04:30 Temperature 98.3 F Pulse Rate 107 H 111 H 91 H Respiratory 17 21 16 Rate Blood Pressure 123/85 141/92 131/85 O2 Sat by Pulse 99 100 99 Oximetry 07/31/19 07/31/19 07/31/19 04:46 05:00 05:30 Temperature Pulse Rate 111 H 102 H 95 H Respiratory 22 21 Rate Blood Pressure 138/88 129/86 128/82 O2 Sat by Pulse 100 100 98 Oximetry 07/31/19 07/31/19 07/31/19 06:00 06:30 07:00 Temperature Pulse Rate 96 H 88 85 Respiratory 20 12 15 Rate Blood Pressure 127/93 133/81 127/72 O2 Sat by Pulse 98 99 99 Oximetry 07/31/19 07/31/19 07/31/19 07: 07:30 08:00 Temperature Pulse Rate 93 H 77 68 Respiratory 16 20 Rate Blood Pressure 130/82 126/79 128/79 O2 Sat by Pulse 98 99 98 Oximetry 07/31/19 07/31/19 07/31/19 08:30 09:00 11:40 Temperature Pulse Rate 91 H 83 Respiratory 22 19 Rate Blood Pressure 136/89 126/103 O2 Sat by Pulse 99 98 99 Oximetry - Labs CBC & Chem 7: 07/31/19 09:45 07/31/19 09:45 Labs: Abnormal lab results 07/30/19 07/30/19 07/30/19 Range/Units 12:32 13:53 20:48 WBC (4.5-11.0) K/mm3 RBC (3.65-5.03) M/mm3 Hgb (10.1-14.3) gm/dl Hct (30.3-42.9) % MCHC (30-34) % Plt Count (140-440) K/mm3 Lymph % (Auto) (13.4-35.0) % Lymph # (1.2-5.4) K/mm3 Seg Neutrophils % (40.0-70.0) % Seg Neutrophils # (1.8-7.7) K/mm3 ABG pO2 122.4 H (80.0-90.0) mm Hg ABG Base Excess -2.4 L (-2.0-3.0) mmol/L ABG Hemoglobin 9.4 L (12.0-16.0) gm/dl BUN (7-17) mg/dL Glucose (65-100) mg/dL POC Glucose 138 H (70-105) Crossmatch See Detail 07/30/19 07/31/19 07/31/19 Range/Units 23:54 05:16 09:45 WBC 12.1 H (4.5-11.0) K/mm3 RBC 3.26 L (3.65-5.03) M/mm3 Hgb 10.0 L (10.1-14.3) gm/dl Hct 28.9 L (30.3-42.9) % MCHC 35 H (30-34) % Plt Count 566 H (140-440) K/mm3 Lymph % (Auto) 8.4 L (13.4-35.0) % Lymph # 1.0 L (1.2-5.4) K/mm3 Seg Neutrophils % 85.0 H (40.0-70.0) % Seg Neutrophils # 10.3 H (1.8-7.7) K/mm3 ABG pO2 (80.0-90.0) mm Hg ABG Base Excess (-2.0-3.0) mmol/L ABG Hemoglobin (12.0-16.0) gm/dl BUN (7-17) mg/dL Glucose (65-100) mg/dL POC Glucose 162 H 221 H (70-105) Crossmatch 07/31/19 07/31/19 Range/Units 09:45 Unknown WBC (4.5-11.0) K/mm3 RBC (3.65-5.03) M/mm3 Hgb (10.1-14.3) gm/dl Hct (30.3-42.9) % MCHC (30-34) % Plt Count (140-440) K/mm3 Lymph % (Auto) (13.4-35.0) % Lymph # (1.2-5.4) K/mm3 Seg Neutrophils % (40.0-70.0) % Seg Neutrophils # (1.8-7.7) K/mm3 ABG pO2 128.9 H (80.0-90.0) mm Hg ABG Base Excess -2.1 L (-2.0-3.0) mmol/L ABG Hemoglobin 11.3 L (12.0-16.0) gm/dl BUN 23 H (7-17) mg/dL Glucose 165 H (65-100) mg/dL POC Glucose (70-105) Crossmatch Medications & Allergies - Medications Allergies/Adverse Reactions: Allergies latex Allergy (Verified 06/28/19 17:11) Anaphylaxis tramadol [From Ultram] Allergy (Verified 06/28/19 17:10) Unknown haloperidol [From Haldol] Adverse Reaction (Verified 07/17/19 05:55) Shortness of Breath agitation/combative ketorolac [From Toradol] Adverse Reaction (Verified 06/28/19 17:10) Seizure prochlorperazine [From Compazine] Adverse Reaction (Verified 06/28/19 17:11) Unknown Home Medications: Home Medications Medication Instructions Recorded Confirmed Last Taken Type No Known Home Medications [No 07/16/19 07/16/19 Unknown History Reported Home Medications] Active Medications: Generic Name Dose Route Start Last Admin Trade Name Freq PRN Reason Stop Dose Admin Acetaminophen 650 mg 07/16/19 05:36 07/29/19 16:31 Tylenol PO 650 mg Q4H PRN Administration Pain MILD(1-3)/Fever >100.5/[place]AL[place] Acetaminophen 650 mg 07/30/19 17:44 Tylenol [place] Q4H PRN Pain, Mild (1-3) Albuterol 2.5 mg 07/16/19 22:48 07/16/19 23:01 Proventil IH 2.5 mg Q4HRT PRN Administration Shortness Of Breath Lipase/Protease/Amylase 1 each 07/18/19 14:34 Pancreaze 10,500 Unit FEEDTUBE PRN PRN For Clogged Feeding Tube Dextrose 50 ml 07/17/19 03:17 07/17/19 05:30 D50w (25gm) Syringe IV 50 ml PRN PRN Administration Hypoglycemia Enoxaparin Sodium 40 mg 07/31/19 11:00 Lovenox SUB-Q QDAY@1000 KASIE Famotidine 20 mg 07/20/19 10:00 07/31/19 09:37 Pepcid PO 20 mg BID KASIE Administration Fentanyl 50 mcg 07/17/19 03:18 07/17/19 04:53 Sublimaze IV 50 mcg Q10MIN PRN Administration ANALGESIA Hydrochlorothiazide 25 mg 07/23/19 10:00 07/31/19 09:37 Hctz PO 25 mg QDAY KASIE Administration Hydromorphone HCl 1 mg 07/31/19 11:00 07/31/19 11:56 Dilaudid IV 1 mg Q3H PRN Administration Pain , Severe (7-10) Hydrophilic Ointment 1 applic 07/17/19 03:18 Vaseline Lip Therapy TP Q2HR PRN Dry Lips Ceftriaxone Sodium 2 gm in 100 mls @ 200 mls/hr 07/20/19 13:00 07/31/19 09:37 Rocephin/Ns 2 Gm/100 Ml IV 200 mls/hr Q24HR KASIE Administration Protocol Multi-Ingred Cream/Lotion/Oil/Oint 1 applic 07/17/19 03:18 Artificial Tears Ophth Oint OU Q4HR PRN Dry Eye(s) Nicotine 14 mg 07/16/19 10:00 07/31/19 09:37 Habitrol TD 14 mg QDAY KASIE Administration Ondansetron HCl 4 mg 07/16/19 05:36 07/16/19 21:16 Zofran IV 4 mg Q8H PRN Administration Nausea And Vomiting Oxycodone/Acetaminophen 1 tab 07/16/19 05:36 07/16/19 12:33 Percocet 5/325 PO 1 tab Q6H PRN Administration Pain, Moderate (4-6) Quetiapine Fumarate 50 mg 07/28/19 11:00 07/31/19 09:37 Seroquel PO 50 mg BID KASIE Administration Simple Syrup 15 ml 07/18/19 14:34 Simple Syrup FEEDTUBE PRN PRN Hypoglycemia Simple Syrup 30 ml 07/18/19 14:34 Simple Syrup FEEDTUBE PRN PRN Hypoglycemia Sodium Bicarbonate 325 mg 07/18/19 14:34 Sodium Bicarbonate FEEDTUBE PRN PRN For Clogged Feeding Tube Sodium Chloride 10 ml 07/16/19 10:00 07/31/19 09:38 Sodium Chloride Flush Syringe 10 Ml IV 10 ml BID KASIE Administration Sodium Chloride 10 ml 07/16/19 05:36 Sodium Chloride Flush Syringe 10 Ml IV PRN PRN LINE FLUSH Sodium Polystyrene Sulfonate 15 gm 07/28/19 22:14 07/28/19 22:35 Kionex PO 15 gm Q6H PRN Administration Hyperkalemia
--- NOTE | 2019-07-31 12:53 | Progress Note ---
Assessment and Plan /Acute hypoxic respiratory failure; requiring intubation >96h - ARDS Likely from severe sepsis Continue ventilatory support , nebulizers, supportive care Pulmonary critical following, wean as tolerated Required high FiO2 and PEEP to maintain oxygen saturation - trended down wean off vent as tolerated, s/p bronch 07/28/19 - negative BAL plan for extubation today / Severe sepsis with Septic shock and organ failure from left renal abscess/bacteremia/right foot cellulites with persistent fever Secondary to pyelonephritis with renal abscess and Escherichia coli bacteremia. weaned off pressor, Continue abx per ID, CTAP with contrast showed left renal abscess - s/p left nephrectomy 07/30 by Urologist /E.coli bacteremia, likely source from pyelonephritis and renal abscess Continue to treat with empiric antibiotic per ID recommendation and per outcome of the surgery - s/p left nephrectomy 07/30 by Urologist /Transaminitis - Could be from severe sepsis versus and underlying chronic hepatitis C - trending down LFTs, s/p HIDA scan showed normal study - hepatitis panel showed positive hepatitis C antibody - need further outpatient follow-up / Acute pyelonephritis with left renal abscess - Decreased leukocytosis. on iv abx, s/p left nephrectomy 07/30 / Cellulites of right foot, improved with abx /Acute renal failure due to ATN from severe sepsis Creatinine was 2.2 on admission monitor renal function, Cr now stable / Malnutrition Nutrition corrected by NG tube feedings. Nutrition following /Electrolyte imbalance Hyponatremia -manage with free water with tube feeding Hypokalemia - continue to replete as needed and continue to monitor BMP Hypomagnesemia - replete as needed, continue to follow The high probability of a clinically significant, sudden or life threatening deterioration of the [pulmonary, renal, infectious, metabolic] system(s) required my full and direct attention, intervention and personal management. The aggregate critical care time was [55] minutes. This time is in addition to time spent performing reported procedures but includes the following: [X] Data Review and interpretation [X] Patient assessment and monitoring of vital signs [x] Documentation [x] Medication orders and management Patient remains critically ill, with poor outcome Brief history The patient is a 44-year-old female with bipolar disorder presented to the emergency room with right foot pain, abdominal pain and fevers. She previously presented to the emergency room on 06/28/2019 with right foot with redness and pain following a possible spider bite. She was given a prescription for oral Augmentin and was discharged home. Patient stated that she was compliant with Augmentin and also was soaking her right foot in Epsom salts. About 2-3 days prior to admission, she started developing fevers, nausea as well as worsening a bdominal pain. She has presented to the emergency room and was hospitalized. She was noted to be septic,Started on empiric antibiotics. She decompensated on the floor and required intubation and transferred to ICU for further management on 07/17/2019. Also required pressors for septic shock, blood culture growing Escherichia coli bacteremia. Patient is now on Lopressor, still intubated with 40% FiO2 and high PEEP. Plan to continue wean off from vent as tolerated and complete her antibiotic regimen for bacteremia. Radiological data: CT abdomen/pelvis: 1. Mild nonspecific left-sided perinephric stranding in this patient with punctate bilateral nonobstructive nephrolithiasis. No asymmetric hydronephrosis or ureteral stone disease. 2. Complex cyst versus mass in the left ovary. Recommend nonemergent follow-up pelvic ultrasound. 3. Mild periportal edema could be related to aggressive hydration therapy. 4. Other incidental findings as outlined above on this limited noncontrast exam with mild motion artifact. Of note, there is a 5 mm nodule in the right middle lobe. Please see below recommendations. Abdomen ultrasound: 1. No gallstones, but the gallbladder wall is thickened and edematous. 2. Small bilateral pleural effusions. Hospitalist Physical General appearance: Present: no acute distress, well-nourished, other (intubated on ventilatory support and sedated) - EENT Eyes: Present: PERRL, EOM intact - Neck Neck: Present: supple, normal ROM - Respiratory Respiratory effort: labored Respiratory: bilateral: diminished, rhonchi, negative: rales, wheezing - Cardiovascular Rhythm: regular Heart Sounds: Present: S1 & S2 - Extremities Extremities: no ischemia, no edema Extremity abnormal: edema - Abdominal General gastrointestinal: soft, non-tender, non-distended, normal bowel sounds - Integumentary Integumentary: Present: clear, warm - Psychiatric Psychiatric: other (intubated on vent) - Neurologic Neurologic: other (intubated on vent) Subjective Date of service: 07/31/19 Principal diagnosis: Acute respiratory failure Interval history: Patient seen and examined Remain intubated, off pressor support, on SBT trial s/p left nephrectomy yesterday - tolerated well, afebrile Mother at bedside - updated Objective - Constitutional Vitals: Vital Signs - 12hr 07/31/19 07/31/19 07/31/19 01:00 01:30 02:00 Temperature Pulse Rate 74 70 64 Pulse Rate [ From Monitor] Respiratory 26 H 26 H 26 H Rate Blood Pressure 96/55 90/47 91/47 O2 Sat by Pulse 99 99 99 Oximetry 07/31/19 07/31/19 07/31/19 02:31 03:00 03:30 Temperature 98.3 F Pulse Rate 88 111 H 107 H Pulse Rate [ From Monitor] Respiratory 12 19 17 Rate Blood Pressure 123/76 125/81 123/85 O2 Sat by Pulse 100 100 99 Oximetry 07/31/19 07/31/19 07/31/19 04:00 04:30 04:46 Temperature Pulse Rate 111 H 91 H 111 H Pulse Rate [ From Monitor] Respiratory 21 16 Rate Blood Pressure 141/92 131/85 138/88 O2 Sat by Pulse 100 99 100 Oximetry 07/31/19 07/31/19 07/31/19 05:00 05:30 06:00 Temperature Pulse Rate 102 H 95 H 96 H Pulse Rate [ From Monitor] Respiratory 22 21 20 Rate Blood Pressure 129/86 128/82 127/93 O2 Sat by Pulse 100 98 98 Oximetry 07/31/19 07/31/19 07/31/19 06:30 07:00 07:19 Temperature Pulse Rate 88 85 93 H Pulse Rate [ From Monitor] Respiratory 12 15 Rate Blood Pressure 133/81 127/72 130/82 O2 Sat by Pulse 99 99 98 Oximetry 07/31/19 07/31/19 07/31/19 07:30 08:00 08:30 Temperature Pulse Rate 77 68 91 H Pulse Rate [ 84 From Monitor] Respiratory 16 20 22 Rate Blood Pressure 126/79 128/79 136/89 O2 Sat by Pulse 99 98 99 Oximetry 07/31/19 07/31/19 07/31/19 09:00 09:30 10:00 Temperature Pulse Rate 83 69 70 Pulse Rate [ From Monitor] Respiratory 19 17 26 H Rate Blood Pressure 126/103 113/63 103/58 O2 Sat by Pulse 98 96 98 Oximetry 07/31/19 07/31/19 07/31/19 10:30 11:01 11:31 Temperature Pulse Rate 66 83 97 H Pulse Rate [ From Monitor] Respiratory 17 17 15 Rate Blood Pressure 98/51 120/63 132/70 O2 Sat by Pulse 98 99 100 Oximetry 07/31/19 07/31/19 07/31/19 11:40 12:01 12:30 Temperature Pulse Rate 75 81 Pulse Rate [ From Monitor] Respiratory 20 15 Rate Blood Pressure 127/68 118/79 O2 Sat by Pulse 99 100 99 Oximetry - Labs CBC & Chem 7: 08/01/19 08:30 08/01/19 08:30 Labs: Abnormal lab results 07/30/19 07/30/19 07/30/19 Range/Units 13:53 20:48 23:54 WBC (4.5-11.0) K/mm3 RBC (3.65-5.03) M/mm3 Hgb (10.1-14.3) gm/dl Hct (30.3-42.9) % MCHC (30-34) % Plt Count (140-440) K/mm3 Lymph % (Auto) (13.4-35.0) % Lymph # (1.2-5.4) K/mm3 Seg Neutrophils % (40.0-70.0) % Seg Neutrophils # (1.8-7.7) K/mm3 ABG pO2 122.4 H (80.0-90.0) mm Hg ABG Base Excess -2.4 L (-2.0-3.0) mmol/L ABG Hemoglobin 9.4 L (12.0-16.0) gm/dl BUN (7-17) mg/dL Glucose (65-100) mg/dL POC Glucose 162 H (70-105) Crossmatch See Detail 07/31/19 07/31/19 07/31/19 Range/Units 05:16 09:45 09:45 WBC 12.1 H (4.5-11.0) K/mm3 RBC 3.26 L (3.65-5.03) M/mm3 Hgb 10.0 L (10.1-14.3) gm/dl Hct 28.9 L (30.3-42.9) % MCHC 35 H (30-34) % Plt Count 566 H (140-440) K/mm3 Lymph % (Auto) 8.4 L (13.4-35.0) % Lymph # 1.0 L (1.2-5.4) K/mm3 Seg Neutrophils % 85.0 H (40.0-70.0) % Seg Neutrophils # 10.3 H (1.8-7.7) K/mm3 ABG pO2 (80.0-90.0) mm Hg ABG Base Excess (-2.0-3.0) mmol/L ABG Hemoglobin (12.0-16.0) gm/dl BUN 23 H (7-17) mg/dL Glucose 165 H (65-100) mg/dL POC Glucose 221 H (70-105) Crossmatch 07/31/19 Range/Units Unknown WBC (4.5-11.0) K/mm3 RBC (3.65-5.03) M/mm3 Hgb (10.1-14.3) gm/dl Hct (30.3-42.9) % MCHC (30-34) % Plt Count (140-440) K/mm3 Lymph % (Auto) (13.4-35.0) % Lymph # (1.2-5.4) K/mm3 Seg Neutrophils % (40.0-70.0) % Seg Neutrophils # (1.8-7.7) K/mm3 ABG pO2 128.9 H (80.0-90.0) mm Hg ABG Base Excess -2.1 L (-2.0-3.0) mmol/L ABG Hemoglobin 11.3 L (12.0-16.0) gm/dl BUN (7-17) mg/dL Glucose (65-100) mg/dL POC Glucose (70-105) Crossmatch
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
[2019-07-31] MEDS: LOVENOX SUB-Q SCH (14:13)
--- NOTE | 2019-07-31 14:29 | Progress Note ---
Assessment and Plan - Patient Problems (1) Acute renal failure Current Visit: Yes Status: Acute Plan to address problem: Kidney function has improved. Follow-up electrolytes and renal function. pt with excellent urine output. CT showing multiple abscesses,.now s/p L nephrectomy (2) Fluid overload Current Visit: Yes Status: Acute Plan to address problem: Follow up volume status off bumex. electrolytes and renal function (3) Acute pyelonephritis Current Visit: Yes Status: Acute Plan to address problem: Continue antibiotics.CT showing multiple L kidney abscesses, now s/p L nephrectomy (4) Hypokalemia Current Visit: Yes Status: Acute Plan to address problem: K normalized (5) Elevated LFTs Current Visit: Yes Status: Acute Plan to address problem: Ischemic Hepatitis. Follow-up liver function tests (6) Acute respiratory failure Current Visit: Yes Status: Acute Plan to address problem: Continue ventilator management as per ICU team (7) Cellulitis of right foot Current Visit: Yes Status: Resolved Plan to address problem: Continue antibiotics Subjective Date of service: 07/31/19 Principal diagnosis: Acute respiratory failure Interval history: Pt s/p L nephrectomy, awake, alert, in NAD Objective - Vital Signs Vital signs: Vital Signs - 12hr 07/31/19 07/31/19 07/31/19 02:31 03:00 03:30 Temperature 98.3 F Pulse Rate 88 111 H 107 H Pulse Rate [ From Monitor] Respiratory 12 19 17 Rate Blood Pressure 123/76 125/81 123/85 O2 Sat by Pulse 100 100 99 Oximetry 07/31/19 07/31/19 07/31/19 04:00 04:30 04:46 Temperature Pulse Rate 111 H 91 H 111 H Pulse Rate [ From Monitor] Respiratory 21 16 Rate Blood Pressure 141/92 131/85 138/88 O2 Sat by Pulse 100 99 100 Oximetry 07/31/19 07/31/19 07/31/19 05:00 05:30 06:00 Temperature Pulse Rate 102 H 95 H 96 H Pulse Rate [ From Monitor] Respiratory 22 21 20 Rate Blood Pressure 129/86 128/82 127/93 O2 Sat by Pulse 100 98 98 Oximetry 07/31/19 07/31/19 07/31/19 06:30 07:00 07:19 Temperature Pulse Rate 88 85 93 H Pulse Rate [ From Monitor] Respiratory 12 15 Rate Blood Pressure 133/81 127/72 130/82 O2 Sat by Pulse 99 99 98 Oximetry 07/31/19 07/31/19 07/31/19 07:30 08:00 08:30 Temperature 98.8 F Pulse Rate 77 68 91 H Pulse Rate [ 84 From Monitor] Respiratory 16 20 22 Rate Blood Pressure 126/79 128/79 136/89 O2 Sat by Pulse 99 98 99 Oximetry 07/31/19 07/31/19 07/31/19 09:00 09:30 10:00 Temperature Pulse Rate 83 69 70 Pulse Rate [ From Monitor] Respiratory 19 17 26 H Rate Blood Pressure 126/103 113/63 103/58 O2 Sat by Pulse 98 96 98 Oximetry 07/31/19 07/31/19 07/31/19 10:30 11:01 11:31 Temperature Pulse Rate 66 83 97 H Pulse Rate [ From Monitor] Respiratory 17 17 15 Rate Blood Pressure 98/51 120/63 132/70 O2 Sat by Pulse 98 99 100 Oximetry 07/31/19 07/31/19 07/31/19 11:40 12:00 12:01 Temperature 98.2 F Pulse Rate 75 Pulse Rate [ 75 From Monitor] Respiratory 20 20 Rate Blood Pressure 127/68 O2 Sat by Pulse 99 100 100 Oximetry 07/31/19 07/31/19 12:30 13:01 Temperature Pulse Rate 81 79 Pulse Rate [ From Monitor] Respiratory 15 14 Rate Blood Pressure 118/79 120/69 O2 Sat by Pulse 99 98 Oximetry - General Appearance General appearance: well-developed, well-nourished, appears stated age EENT: ATNC, PERRL, mucous membranes moist Neck: no JVD Respiratory: Present: Clear to Ascultation Cardiology: regular, S1S2 Gastrointestinal: normoactive bowel sounds Integumentary: no rash, other Neurologic: no focal deficit, alert and oriented x3, strength 5/5, CN 3-12 intact Psychiatric: mood/affect appropriate, cooperative - Lab 07/31/19 09:45 07/31/19 09:45 Most recent lab results ABG pH 7.402 pH Units (7.350-7.450) 07/31/19 Unknown ABG pCO2 36.6 mm Hg 07/31/19 Unknown ABG pO2 128.9 mm Hg (80.0-90.0) H 07/31/19 Unknown ABG HCO3 22.3 mmol/L (20.0-26.0) 07/31/19 Unknown ABG O2 Saturation 98.5 % (95.0-99.0) 07/31/19 Unknown Calcium 8.7 mg/dL (8.4-10.2) 07/31/19 09:45 Phosphorus 4.50 mg/dL (2.5-4.5) D 07/28/19 11:50 Magnesium 2.00 mg/dL (1.7-2.3) 07/28/19 11:50 76.6 mg/dL (0.1-20.0) H 07/16/19 14:30 39 mmol/L 07/16/19 14:30 Medications & Allergies - Medications Allergies/Adverse Reactions: Allergies latex Allergy (Verified 06/28/19 17:11) Anaphylaxis tramadol [From Ultram] Allergy (Verified 06/28/19 17:10) Unknown haloperidol [From Haldol] Adverse Reaction (Verified 07/17/19 05:55) Shortness of Breath agitation/combative ketorolac [From Toradol] Adverse Reaction (Verified 06/28/19 17:10) Seizure prochlorperazine [From Compazine] Adverse Reaction (Verified 06/28/19 17:11) Unknown Home Medications: Home Medications Medication Instructions Recorded Confirmed Last Taken Type No Known Home Medications [No 07/16/19 07/16/19 Unknown History Reported Home Medications] Active Medications: Generic Name Dose Route Start Last Admin Trade Name Freq PRN Reason Stop Dose Admin Acetaminophen 650 mg 07/16/19 05:36 07/29/19 16:31 Tylenol PO 650 mg Q4H PRN Administration Pain MILD(1-3)/Fever >100.5/WHALEN Acetaminophen 650 mg 07/30/19 17:44 Tylenol OK Q4H PRN Pain, Mild (1-3) Albuterol 2.5 mg 07/16/19 22:48 07/16/19 23:01 Proventil IH 2.5 mg Q4HRT PRN Administration Shortness Of Breath Lipase/Protease/Amylase 1 each 07/18/19 14:34 Pancrenicolás Thomas 10,500 Unit FEEDTUBE PRN PRN For Clogged Feeding Tube Dextrose 50 ml 07/17/19 03:17 07/17/19 05:30 D50w (25gm) Syringe IV 50 ml PRN PRN Administration Hypoglycemia Enoxaparin Sodium 40 mg 07/31/19 11:00 07/31/19 14:13 Lovenox SUB-Q 40 mg QDAY@1000 KASIE Administration Famotidine 20 mg 07/20/19 10:00 07/31/19 09:37 Pepcid PO 20 mg BID KASIE Administration Fentanyl 50 mcg 07/17/19 03:18 07/17/19 04:53 Sublimaze IV 50 mcg Q10MIN PRN Administration ANALGESIA Hydrochlorothiazide 25 mg 07/23/19 10:00 07/31/19 09:37 Hctz PO 25 mg QDAY KASIE Administration Hydromorphone HCl 1 mg 07/31/19 11:00 07/31/19 11:56 Dilaudid IV 1 mg Q3H PRN Administration Pain , Severe (7-10) Hydrophilic Ointment 1 applic 07/17/19 03:18 Vaseline Lip Therapy TP Q2HR PRN Dry Lips Ceftriaxone Sodium 2 gm in 100 mls @ 200 mls/hr 07/20/19 13:00 07/31/19 09:37 Rocephin/Ns 2 Gm/100 Ml IV 200 mls/hr Q24HR KASIE Administration Protocol Multi-Ingred Cream/Lotion/Oil/Oint 1 applic 07/17/19 03:18 Artificial Tears Ophth Oint OU Q4HR PRN Dry Eye(s) Nicotine 14 mg 07/16/19 10:00 07/31/19 09:37 Habitrol TD 14 mg QDAY KASIE Administration Ondansetron HCl 4 mg 07/16/19 05:36 07/16/19 21:16 Zofran IV 4 mg Q8H PRN Administration Nausea And Vomiting Oxycodone/Acetaminophen 1 tab 07/16/19 05:36 07/16/19 12:33 Percocet 5/325 PO 1 tab Q6H PRN Administration Pain, Moderate (4-6) Quetiapine Fumarate 50 mg 07/28/19 11:00 07/31/19 09:37 Seroquel PO 50 mg BID KASIE Administration Simple Syrup 15 ml 07/18/19 14:34 Simple Syrup FEEDTUBE PRN PRN Hypoglycemia Simple Syrup 30 ml 07/18/19 14:34 Simple Syrup FEEDTUBE PRN PRN Hypoglycemia Sodium Bicarbonate 325 mg 07/18/19 14:34 Sodium Bicarbonate FEEDTUBE PRN PRN For Clogged Feeding Tube Sodium Chloride 10 ml 07/16/19 10:00 07/31/19 09:38 Sodium Chloride Flush Syringe 10 Ml IV 10 ml BID KASIE Administration Sodium Chloride 10 ml 07/16/19 05:36 Sodium Chloride Flush Syringe 10 Ml IV PRN PRN LINE FLUSH Sodium Polystyrene Sulfonate 15 gm 07/28/19 22:14 07/28/19 22:35 Kionex PO 15 gm Q6H PRN Administration Hyperkalemia
[2019-07-31] MEDS: PERCOCET 5/325 PO PRN ×2 (17:37→23:12)
[2019-07-31] MEDS: TYLENOL PO PRN (20:47)
[2019-07-31] MEDS: ZOFRAN IV PRN (22:48)
[2019-08-01] MEDS ORDERED: ATIVAN IV ONE (01:07)
[2019-08-01] MEDS: DILAUDID IV PRN ×8 (01:57→22:09)
[2019-08-01] MEDS: PERCOCET 5/325 PO PRN ×2 (05:14→14:02)
--- NOTE | 2019-08-01 07:45 | Progress Note ---
Assessment and Plan - Patient Problems (1) Acute renal failure Current Visit: Yes Status: Acute Plan to address problem: Kidney function has improved. Follow-up electrolytes and renal function. pt with excellent urine output. CT showing multiple abscesses, now s/p L nephrectomy (2) Fluid overload Current Visit: Yes Status: Acute Plan to address problem: Follow up volume status off bumex. electrolytes and renal function (3) Acute pyelonephritis Current Visit: Yes Status: Acute Plan to address problem: Continue antibiotics.CT showing multiple L kidney abscesses, now s/p L nephrectomy (4) Hypokalemia Current Visit: Yes Status: Acute Plan to address problem: K normalized (5) Elevated LFTs Current Visit: Yes Status: Acute Plan to address problem: Ischemic Hepatitis. Follow-up liver function tests (6) Cellulitis of right foot Current Visit: Yes Status: Resolved Plan to address problem: Continue antibiotics Subjective Date of service: 08/01/19 Principal diagnosis: Acute respiratory failure Interval history: Pt s/p L nephrectomy, awake, alert, c/o severe pain at the surgical site. Objective - Vital Signs Vital signs: Vital Signs - 12hr 07/31/19 07/31/19 07/31/19 19:46 19:50 20:00 Temperature 98.6 F Pulse Rate 74 Pulse Rate [ From Monitor] Pulse Rate [ None] Respiratory Rate Blood Pressure O2 Sat by Pulse 100 Oximetry 07/31/19 07/31/19 07/31/19 20:01 20:18 20:47 Temperature Pulse Rate 78 Pulse Rate [ From Monitor] Pulse Rate [ None] Respiratory 18 24 15 Rate Blood Pressure 134/76 O2 Sat by Pulse 100 Oximetry 07/31/19 07/31/19 07/31/19 21:01 22:01 22:42 Temperature Pulse Rate 82 76 Pulse Rate [ From Monitor] Pulse Rate [ None] Respiratory 20 27 H 19 Rate Blood Pressure 119/69 114/69 O2 Sat by Pulse 100 98 Oximetry 07/31/19 07/31/19 07/31/19 23:01 23:03 23:12 Temperature Pulse Rate 87 84 Pulse Rate [ From Monitor] Pulse Rate [ None] Respiratory 17 16 22 Rate Blood Pressure 114/69 119/63 O2 Sat by Pulse 99 99 Oximetry 07/31/19 08/01/19 08/01/19 23:26 00:00 00:12 Temperature 98.8 F Pulse Rate 72 Pulse Rate [ From Monitor] Pulse Rate [ None] Respiratory 27 H 22 Rate Blood Pressure 112/66 O2 Sat by Pulse 99 Oximetry 08/01/19 08/01/19 08/01/19 00:15 01:00 01:55 Temperature Pulse Rate 81 Pulse Rate [ 72 From Monitor] Pulse Rate [ 87 None] Respiratory 22 19 24 Rate Blood Pressure 112/78 119/75 O2 Sat by Pulse 99 96 94 Oximetry 08/01/19 08/01/19 08/01/19 01:57 02:00 02:27 Temperature Pulse Rate 92 H Pulse Rate [ From Monitor] Pulse Rate [ None] Respiratory 18 22 18 Rate Blood Pressure 119/75 O2 Sat by Pulse 94 Oximetry 08/01/19 08/01/19 08/01/19 03:00 03:44 04:00 Temperature 99.3 F Pulse Rate 79 83 Pulse Rate [ From Monitor] Pulse Rate [ None] Respiratory 33 H 27 H Rate Blood Pressure 111/64 117/78 O2 Sat by Pulse 89 Oximetry 08/01/19 08/01/19 08/01/19 04:30 04:39 05:01 Temperature Pulse Rate 97 H Pulse Rate [ 86 From Monitor] Pulse Rate [ None] Respiratory 26 H 25 H 24 Rate Blood Pressure 125/79 O2 Sat by Pulse 94 97 Oximetry 08/01/19 08/01/19 08/01/19 05:09 05:14 06:00 Temperature Pulse Rate 83 Pulse Rate [ From Monitor] Pulse Rate [ None] Respiratory 28 H 32 H 33 H Rate Blood Pressure 121/75 O2 Sat by Pulse 96 Oximetry 08/01/19 08/01/19 07:00 07:36 Temperature Pulse Rate 79 Pulse Rate [ From Monitor] Pulse Rate [ None] Respiratory 26 H 32 H Rate Blood Pressure 116/70 O2 Sat by Pulse Oximetry - General Appearance General appearance: well-developed, well-nourished, appears stated age EENT: ATNC, PERRL, mucous membranes moist Neck: no JVD Respiratory: Present: Clear to Ascultation Cardiology: regular, S1S2 Gastrointestinal: normoactive bowel sounds Integumentary: no rash, other (no edema ) Neurologic: no focal deficit, alert and oriented x3, strength 5/5, CN 3-12 i ntact Psychiatric: mood/affect appropriate, cooperative - Lab 07/31/19 09:45 07/31/19 09:45 Most recent lab results ABG pH 7.402 pH Units (7.350-7.450) 07/31/19 Unknown ABG pCO2 36.6 mm Hg 07/31/19 Unknown ABG pO2 128.9 mm Hg (80.0-90.0) H 07/31/19 Unknown ABG HCO3 22.3 mmol/L (20.0-26.0) 07/31/19 Unknown ABG O2 Saturation 98.5 % (95.0-99.0) 07/31/19 Unknown Calcium 8.7 mg/dL (8.4-10.2) 07/31/19 09:45 Phosphorus 4.50 mg/dL (2.5-4.5) D 07/28/19 11:50 Magnesium 2.00 mg/dL (1.7-2.3) 07/28/19 11:50 76.6 mg/dL (0.1-20.0) H 07/16/19 14:30 39 mmol/L 07/16/19 14:30 Medications & Allergies - Medications Allergies/Adverse Reactions: Allergies latex Allergy (Verified 06/28/19 17:11) Anaphylaxis tramadol [From Ultram] Allergy (Verified 06/28/19 17:10) Unknown haloperidol [From Haldol] Adverse Reaction (Verified 07/17/19 05:55) Shortness of Breath agitation/combative ketorolac [From Toradol] Adverse Reaction (Verified 06/28/19 17:10) Seizure prochlorperazine [From Compazine] Adverse Reaction (Verified 06/28/19 17:11) Unknown Home Medications: Home Medications Medication Instructions Recorded Confirmed Last Taken Type No Known Home Medications [No 07/16/19 07/16/19 Unknown History Reported Home Medications] Active Medications: Generic Name Dose Route Start Last Admin Trade Name Freq PRN Reason Stop Dose Admin Acetaminophen 650 mg 07/16/19 05:36 07/31/19 20:47 Tylenol PO 650 mg Q4H PRN Administration Pain MILD(1-3)/Fever >100.5/WHALEN Acetaminophen 650 mg 07/30/19 17:44 Tylenol NM Q4H PRN Pain, Mild (1-3) Albuterol 2.5 mg 07/16/19 22:48 07/16/19 23:01 Proventil IH 2.5 mg Q4HRT PRN Administration Shortness Of Breath Lipase/Protease/Amylase 1 each 07/18/19 14:34 Pancrenicolás Thomas 10,500 Unit FEEDTUBE PRN PRN For Clogged Feeding Tube Dextrose 50 ml 07/17/19 03:17 07/17/19 05:30 D50w (25gm) Syringe IV 50 ml PRN PRN Administration Hypoglycemia Enoxaparin Sodium 40 mg 07/31/19 11:00 07/31/19 14:13 Lovenox SUB-Q 40 mg QDAY@1000 KASIE Administration Famotidine 20 mg 07/20/19 10:00 07/31/19 23:11 Pepcid PO 20 mg BID KASIE Administration Fentanyl 50 mcg 07/17/19 03:18 07/17/19 04:53 Sublimaze IV 50 mcg Q10MIN PRN Administration ANALGESIA Hydrochlorothiazide 25 mg 07/23/19 10:00 07/31/19 09:37 Hctz PO 25 mg QDAY KASIE Administration Hydromorphone HCl 1 mg 07/31/19 11:00 08/01/19 07:36 Dilaudid IV 1 mg Q3H PRN Administration Pain , Severe (7-10) Hydrophilic Ointment 1 applic 07/17/19 03:18 Vaseline Lip Therapy TP Q2HR PRN Dry Lips Ceftriaxone Sodium 2 gm in 100 mls @ 200 mls/hr 07/20/19 13:00 07/31/19 09:37 Rocephin/Ns 2 Gm/100 Ml IV 200 mls/hr Q24HR KASIE Administration Protocol Multi-Ingred Cream/Lotion/Oil/Oint 1 applic 07/17/19 03:18 Artificial Tears Ophth Oint OU Q4HR PRN Dry Eye(s) Nicotine 14 mg 07/16/19 10:00 07/31/19 09:37 Habitrol TD 14 mg QDAY KASIE Administration Ondansetron HCl 4 mg 07/16/19 05:36 07/31/19 22:48 Zofran IV 4 mg Q8H PRN Administration Nausea And Vomiting Oxycodone/Acetaminophen 1 tab 07/16/19 05:36 08/01/19 05:14 Percocet 5/325 PO 1 tab Q6H PRN Administration Pain, Moderate (4-6) Quetiapine Fumarate 50 mg 07/28/19 11:00 07/31/19 23:13 Seroquel PO Not Given BID KASIE Simple Syrup 15 ml 07/18/19 14:34 Simple Syrup FEEDTUBE PRN PRN Hypoglycemia Simple Syrup 30 ml 07/18/19 14:34 Simple Syrup FEEDTUBE PRN PRN Hypoglycemia Sodium Bicarbonate 325 mg 07/18/19 14:34 Sodium Bicarbonate FEEDTUBE PRN PRN For Clogged Feeding Tube Sodium Chloride 10 ml 07/16/19 10:00 07/31/19 22:43 Sodium Chloride Flush Syringe 10 Ml IV 10 ml BID KASIE Administration Sodium Chloride 10 ml 07/16/19 05:36 Sodium Chloride Flush Syringe 10 Ml IV PRN PRN LINE FLUSH Sodium Polystyrene Sulfonate 15 gm 07/28/19 22:14 07/28/19 22:35 Kionex PO 15 gm Q6H PRN Administration Hyperkalemia
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
[2019-08-01 09:06] LABS: Hematocrit 29.9 % (30.3-42.9); Hemoglobin 10.3 gm/dl (10.1-14.3); Mean Corpuscular HGB Conc 35 % (30-34); Mean Corpuscular Volume 89 fl (79-97); Platelet Count 606 K/mm3 (140-440); Red Blood Count 3.37 M/mm3 (3.65-5.03); Red Cell Distribution Width 14.2 % (13.2-15.2)
[2019-08-01 09:29] LABS: BUN/Creatinine Ratio 29; Blood Urea Nitrogen 23 mg/dL (7-17); Calcium 8.9 mg/dL (8.4-10.2); Hemolysis Index 0
[2019-08-01] MEDS: PEPCID PO SCH ×2 (09:42→22:09)
[2019-08-01] MEDS: LOVENOX SUB-Q SCH (09:43)
[2019-08-01] MEDS: ROCEPHIN/NS 2 GM/100 ML 2 GM/100 ML BAG IV SCH (09:44)
[2019-08-01] MEDS: SODIUM CHLORIDE FLUSH SYRINGE 10 ML IV SCH ×2 (09:44→22:09)
[2019-08-01] MEDS: HCTZ PO SCH (10:00)
[2019-08-01] MEDS: HABITROL TD SCH (10:21)
--- NOTE | 2019-08-01 12:48 | Progress Note ---
Assessment and Plan 44 y/o female with abdominal pain found to have right sided mass vs cysts with acute vs chronic vs acute chronic renal failure, UTI and possible cellulitis of lower ext 1. ID-Left nephrectomy. Tolerated well. Remains on IV abx therapy. Mother has questions about if the kidney was cultured. Will have to defer to Urology. 2. Resp-extubated. Took oxygen off while in room and sat remained in the upper 90's 3. PSYCH-Continue Seroquel at 50 BID. 4. Continue dilaudid 1mg IV q3, other pain control per primary and surgery 5. STable for transfer out of unit. Subjective Date of service: 08/01/19 Principal diagnosis: Acute respiratory failure Interval history: No acute events. Successful extubation on yesterday. Mother at bedside. patient really wants to go home. Objective Vital Signs - 12hr 08/01/19 08/01/19 08/01/19 01:00 01:55 01:57 Temperature Pulse Rate 81 Pulse Rate [ From Monitor] Pulse Rate [ 87 None] Respiratory 19 24 18 Rate Blood Pressure 112/78 119/75 O2 Sat by Pulse 96 94 Oximetry 08/01/19 08/01/19 08/01/19 02:00 02:27 03:00 Temperature Pulse Rate 92 H 79 Pulse Rate [ From Monitor] Pulse Rate [ None] Respiratory 22 18 33 H Rate Blood Pressure 119/75 111/64 O2 Sat by Pulse 94 89 Oximetry 08/01/19 08/01/19 08/01/19 03:44 04:00 04:30 Temperature 99.3 F Pulse Rate 83 Pulse Rate [ 86 From Monitor] Pulse Rate [ None] Respiratory 27 H 26 H Rate Blood Pressure 117/78 O2 Sat by Pulse 94 Oximetry 08/01/19 08/01/19 08/01/19 04:39 05:01 05:09 Temperature Pulse Rate 97 H Pulse Rate [ From Monitor] Pulse Rate [ None] Respiratory 25 H 24 28 H Rate Blood Pressure 125/79 O2 Sat by Pulse 97 Oximetry 08/01/19 08/01/19 08/01/19 05:14 06:00 07:00 Temperature Pulse Rate 83 79 Pulse Rate [ From Monitor] Pulse Rate [ None] Respiratory 32 H 33 H 26 H Rate Blood Pressure 121/75 116/70 O2 Sat by Pulse 96 Oximetry 08/01/19 08/01/19 08/01/19 07:36 08:00 08:02 Temperature 98.3 F Pulse Rate 77 Pulse Rate [ 82 From Monitor] Pulse Rate [ None] Respiratory 32 H 22 Rate Blood Pressure 118/71 O2 Sat by Pulse 100 100 Oximetry 08/01/19 08/01/19 08/01/19 09:00 10:01 11:00 Temperature Pulse Rate 88 95 H 89 Pulse Rate [ From Monitor] Pulse Rate [ None] Respiratory 23 15 37 H Rate Blood Pressure 110/76 110/76 124/83 O2 Sat by Pulse 96 99 Oximetry 08/01/19 08/01/19 12:00 12:01 Temperature 99.3 F Pulse Rate 92 H 111 H Pulse Rate [ 82 From Monitor] Pulse Rate [ None] Respiratory 28 H 19 Rate Blood Pressure 137/86 O2 Sat by Pulse 100 Oximetry Constitutional: no acute distress, alert Eyes: non-icteric ENT: oropharynx moist Neck: supple Effort: normal Ascultation: Bilateral: diminished breath sounds Percussion: Bilateral: not dull Cardiovascular: regular rate and rhythm (sinus tach) Gastrointestinal: normoactive bowel sounds, soft, non-tender, non-distended Integumentary: normal Extremities: no cyanosis, no edema, pink and warm Neurologic: non-focal exam, other (sedated opens eyes to tactile stimuli) Psychiatric: other (unable to obtain) CBC and BMP: 08/01/19 08:30 08/01/19 08:30 ABG, PT/INR, D-dimer: ABG POC ABG pH 7.460 (7.35-7.45) H 07/27/19 06:29 ABG pH 7.402 pH Units (7.350-7.450) 07/31/19 Unknown POC ABG pCO2 42.4 (35-45) 07/27/19 06:29 ABG pCO2 36.6 mm Hg 07/31/19 Unknown POC ABG pO2 60 (80-105) L 07/27/19 06:29 ABG pO2 128.9 mm Hg (80.0-90.0) H 07/31/19 Unknown POC ABG HCO3 30.1 (22-26 mml/L) 07/27/19 06:29 POC ABG Total CO2 31 (23-27mmol/L) 07/27/19 06:29 POC ABG O2 Sat 92 07/27/19 06:29 ABG O2 Saturation 98.5 % (95.0-99.0) 07/31/19 Unknown PT/INR, D-dimer PT 16.3 Sec. (12.2-14.9) H 07/16/19 05:47 INR 1.35 (0.87-1.13) H 07/16/19 05:47 Abnormal lab findings: Abnormal Labs 07/16/19 07/16/19 07/16/19 02:01 02:01 02:01 WBC 11.7 H RBC Hgb Hct MCHC RDW Plt Count 101 L Lymph % (Auto) Cameron % (Auto) Eos % (Auto) Lymph # Cameron # Eos # Seg Neutrophils % Seg Neuts % (Manual) 92.0 H Lymphocytes % (Manual) 5.0 L Monocytes % (Manual) Eosinophils % (Manual) Seg Neutrophils # Seg Neutrophils # Man 10.8 H Lymphocytes # (Manual) 0.6 L Monocytes # (Manual) Eosinophils # (Manual) PT 15.2 H INR 1.23 H POC ABG pH ABG pH POC ABG pCO2 POC ABG pO2 ABG pO2 ABG HCO3 ABG O2 Saturation ABG Base Excess ABG Hemoglobin Oxyhemoglobin Sodium Potassium Chloride Carbon Dioxide 18 L BUN 46 H Creatinine 2.2 H Glucose 116 H POC Glucose Lactic Acid Calcium Phosphorus Magnesium Total Bilirubin Direct Bilirubin AST 63 H ALT 125 H Alkaline Phosphatase Total Protein 6.2 L Albumin 2.8 L Lipase Urine WBC (Auto) U Epithel Cells (Auto) Urine Creatinine Hepatitis C Antibody Crossmatch 07/16/19 07/16/19 07/16/19 02:16 02:43 04:07 WBC RBC Hgb Hct MCHC RDW Plt Count Lymph % (Auto) Cameron % (Auto) Eos % (Auto) Lymph # Cameron # Eos # Seg Neutrophils % Seg Neuts % (Manual) Lymphocytes % (Manual) Monocytes % (Manual) Eosinophils % (Manual) Seg Neutrophils # Seg Neutrophils # Man Lymphocytes # (Manual) Monocytes # (Manual) Eosinophils # (Manual) PT INR POC ABG pH ABG pH POC ABG pCO2 POC ABG pO2 ABG pO2 ABG HCO3 ABG O2 Saturation ABG Base Excess ABG Hemoglobin Oxyhemoglobin Sodium Potassium Chloride Carbon Dioxide BUN Creatinine Glucose POC Glucose Lactic Acid 2.10 H* 2.30 H* Calcium Phosphorus Magnesium Total Bilirubin Direct Bilirubin AST ALT Alkaline Phosphatase Total Protein Albumin Lipase 6 L Urine WBC (Auto) U Epithel Cells (Auto) Urine Creatinine Hepatitis C Antibody Crossmatch 07/16/19 07/16/19 07/16/19 05:47 05:59 14:30 WBC RBC Hgb Hct MCHC RDW Plt Count Lymph % (Auto) Cameron % (Auto) Eos % (Auto) Lymph # Cameron # Eos # Seg Neutrophils % Seg Neuts % (Manual) Lymphocytes % (Manual) Monocytes % (Manual) Eosinophils % (Manual) Seg Neutrophils # Seg Neutrophils # Man Lymphocytes # (Manual) Monocytes # (Manual) Eosinophils # (Manual) PT 16.3 H INR 1.35 H POC ABG pH ABG pH POC ABG pCO2 POC ABG pO2 ABG pO2 ABG HCO3 ABG O2 Saturation ABG Base Excess ABG Hemoglobin Oxyhemoglobin Sodium Potassium Chloride Carbon Dioxide BUN Creatinine Glucose POC Glucose Lactic Acid Calcium Phosphorus Magnesium Total Bilirubin Direct Bilirubin AST ALT Alkaline Phosphatase Total Protein Albumin Lipase Urine WBC (Auto) > 182.0 H U Epithel Cells (Auto) 21.0 H Urine Creatinine 76.6 H Hepatitis C Antibody Crossmatch 07/16/19 07/17/19 07/17/19 23:27 00:03 00:03 WBC RBC Hgb Hct MCHC RDW Plt Count Lymph % (Auto) Cameron % (Auto) Eos % (Auto) Lymph # Cameron # Eos # Seg Neutrophils % Seg Neuts % (Manual) Lymphocytes % (Manual) Monocytes % (Manual) Eosinophils % (Manual) Seg Neutrophils # Seg Neutrophils # Man Lymphocytes # (Manual) Monocytes # (Manual) Eosinophils # (Manual) PT INR POC ABG pH 7.093 L ABG pH POC ABG pCO2 32.8 L POC ABG pO2 66 L ABG pO2 ABG HCO3 ABG O2 Saturation ABG Base Excess ABG Hemoglobin Oxyhemoglobin Sodium 148 H D Potassium Chloride 120.5 H Carbon Dioxide 14 L BUN 35 H Creatinine 1.5 H Glucose 42 L POC Glucose Lactic Acid 2.90 H* Calcium 5.7 L* D Phosphorus Magnesium Total Bilirubin Direct Bilirubin AST ALT Alkaline Phosphatase Total Protein Albumin Lipase Urine WBC (Auto) U Epithel Cells (Auto) Urine Creatinine Hepatitis C Antibody Crossmatch 07/17/19 07/17/19 07/17/19 03:01 03:29 03:40 WBC 13.2 H RBC Hgb Hct MCHC RDW Plt Count 116 L Lymph % (Auto) Cameron % (Auto) Eos % (Auto) Lymph # Cameron # Eos # Seg Neutrophils % Seg Neuts % (Manual) Lymphocytes % (Manual) 9.0 L Monocytes % (Manual) Eosinophils % (Manual) 24.0 H Seg Neutrophils # Seg Neutrophils # Man 8.6 H Lymphocytes # (Manual) Monocytes # (Manual) Eosinophils # (Manual) 3.2 H PT INR POC ABG pH 6.981 L ABG pH POC ABG pCO2 55.6 H POC ABG pO2 ABG pO2 ABG HCO3 ABG O2 Saturation ABG Base Excess ABG Hemoglobin Oxyhemoglobin Sodium Potassium Chloride Carbon Dioxide BUN Creatinine Glucose POC Glucose 64 L Lactic Acid Calcium Phosphorus Magnesium Total Bilirubin Direct Bilirubin AST ALT Alkaline Phosphatase Total Protein Albumin Lipase Urine WBC (Auto) U Epithel Cells (Auto) Urine Creatinine Hepatitis C Antibody Crossmatch 07/17/19 07/17/19 07/17/19 03:40 03:40 04:08 WBC RBC Hgb Hct MCHC RDW Plt Count Lymph % (Auto) Cameron % (Auto) Eos % (Auto) Lymph # Cameron # Eos # Seg Neutrophils % Seg Neuts % (Manual) Lymphocytes % (Manual) Monocytes % (Manual) Eosinophils % (Manual) Seg Neutrophils # Seg Neutrophils # Man Lymphocytes # (Manual) Monocytes # (Manual) Eosinophils # (Manual) PT INR POC ABG pH 7.056 L ABG pH POC ABG pCO2 POC ABG pO2 63 L ABG pO2 ABG HCO3 ABG O2 Saturation ABG Base Excess ABG Hemoglobin Oxyhemoglobin Sodium 147 H Potassium Chloride 120.2 H Carbon Dioxide 14 L BUN 36 H Creatinine 1.6 H Glucose POC Glucose Lactic Acid 3.20 H* Calcium 6.0 L Phosphorus Magnesium Total Bilirubin Direct Bilirubin AST ALT Alkaline Phosphatase Total Protein Albumin Lipase Urine WBC (Auto) U Epithel Cells (Auto) Urine Creatinine Hepatitis C Antibody Crossmatch 07/17/19 07/17/19 07/17/19 05:33 05:45 06:51 WBC RBC Hgb Hct MCHC RDW Plt Count Lymph % (Auto) Cameron % (Auto) Eos % (Auto) Lymph # Cameron # Eos # Seg Neutrophils % Seg Neuts % (Manual) Lymphocytes % (Manual) Monocytes % (Manual) Eosinophils % (Manual) Seg Neutrophils # Seg Neutrophils # Man Lymphocytes # (Manual) Monocytes # (Manual) Eosinophils # (Manual) PT INR POC ABG pH 7.061 L ABG pH POC ABG pCO2 49.0 H POC ABG pO2 ABG pO2 ABG HCO3 ABG O2 Saturation ABG Base Excess ABG Hemoglobin Oxyhemoglobin Sodium Potassium Chloride Carbon Dioxide BUN Creatinine Glucose POC Glucose 64 L 239 H Lactic Acid Calcium Phosphorus Magnesium Total Bilirubin Direct Bilirubin AST ALT Alkaline Phosphatase Total Protein Albumin Lipase Urine WBC (Auto) U Epithel Cells (Auto) Urine Creatinine Hepatitis C Antibody Crossmatch 07/17/19 07/17/19 07/17/19 10:57 12:56 18:11 WBC RBC Hgb Hct MCHC RDW Plt Count Lymph % (Auto) Cameron % (Auto) Eos % (Auto) Lymph # Cameron # Eos # Seg Neutrophils % Seg Neuts % (Manual) Lymphocytes % (Manual) Monocytes % (Manual) Eosinophils % (Manual) Seg Neutrophils # Seg Neutrophils # Man Lymphocytes # (Manual) Monocytes # (Manual) Eosinophils # (Manual) PT INR POC ABG pH ABG pH 7.192 L* POC ABG pCO2 POC ABG pO2 ABG pO2 67.5 L ABG HCO3 16.3 L ABG O2 Saturation 92.6 L ABG Base Excess -11.4 L ABG Hemoglobin Oxyhemoglobin 91.1 L Sodium Potassium Chloride Carbon Dioxide BUN Creatinine Glucose POC Glucose 107 H 122 H Lactic Acid Calcium Phosphorus Magnesium Total Bilirubin Direct Bilirubin AST ALT Alkaline Phosphatase Total Protein Albumin Lipase Urine WBC (Auto) U Epithel Cells (Auto) Urine Creatinine Hepatitis C Antibody Crossmatch 07/17/19 07/17/19 07/18/19 23:34 Unknown 04:00 WBC RBC Hgb Hct MCHC RDW Plt Count 85 L Lymph % (Auto) Cameron % (Auto) Eos % (Auto) Lymph # Cameron # Eos # Seg Neutrophils % Seg Neuts % (Manual) 82.0 H Lymphocytes % (Manual) 2.0 L Monocytes % (Manual) 12.0 H Eosinophils % (Manual) Seg Neutrophils # Seg Neutrophils # Man Lymphocytes # (Manual) 0.2 L Monocytes # (Manual) 1.1 H Eosinophils # (Manual) PT INR POC ABG pH ABG pH 7.237 L POC ABG pCO2 POC ABG pO2 ABG pO2 142.4 H ABG HCO3 17.0 L ABG O2 Saturation ABG Base Excess -9.8 L ABG Hemoglobin Oxyhemoglobin Sodium Potassium Chloride Carbon Dioxide BUN Creatinine Glucose POC Glucose 136 H Lactic Acid Calcium Phosphorus Magnesium Total Bilirubin Direct Bilirubin AST ALT Alkaline Phosphatase Total Protein Albumin Lipase Urine WBC (Auto) U Epithel Cells (Auto) Urine Creatinine Hepatitis C Antibody Crossmatch 07/18/19 07/18/19 07/18/19 04:00 05:31 05:51 WBC RBC Hgb Hct MCHC RDW Plt Count Lymph % (Auto) Cameron % (Auto) Eos % (Auto) Lymph # Cameron # Eos # Seg Neutrophils % Seg Neuts % (Manual) Lymphocytes % (Manual) Monocytes % (Manual) Eosinophils % (Manual) Seg Neutrophils # Seg Neutrophils # Man Lymphocytes # (Manual) Monocytes # (Manual) Eosinophils # (Manual) PT INR POC ABG pH 7.239 L ABG pH POC ABG pCO2 56.9 H POC ABG pO2 ABG pO2 ABG HCO3 ABG O2 Saturation ABG Base Excess ABG Hemoglobin Oxyhemoglobin Sodium 151 H Potassium 3.2 L D Chloride 114.7 H Carbon Dioxide BUN 42 H Creatinine 2.1 H Glucose 130 H POC Glucose 135 H Lactic Acid Calcium 6.0 L Phosphorus Magnesium Total Bilirubin 2.10 H Direct Bilirubin AST 59 H ALT 62 H Alkaline Phosphatase Total Protein 4.8 L D Albumin 2.0 L Lipase Urine WBC (Auto) U Epithel Cells (Auto) Urine Creatinine Hepatitis C Antibody Crossmatch 07/18/19 07/18/19 07/18/19 12:05 18:30 23:40 WBC RBC Hgb Hct MCHC RDW Plt Count Lymph % (Auto) Cameron % (Auto) Eos % (Auto) Lymph # Cameron # Eos # Seg Neutrophils % Seg Neuts % (Manual) Lymphocytes % (Manual) Monocytes % (Manual) Eosinophils % (Manual) Seg Neutrophils # Seg Neutrophils # Man Lymphocytes # (Manual) Monocytes # (Manual) Eosinophils # (Manual) PT INR POC ABG pH ABG pH POC ABG pCO2 POC ABG pO2 ABG pO2 ABG HCO3 ABG O2 Saturation ABG Base Excess ABG Hemoglobin Oxyhemoglobin Sodium Potassium Chloride Carbon Dioxide BUN Creatinine Glucose POC Glucose 126 H 131 H 163 H Lactic Acid Calcium Phosphorus Magnesium Total Bilirubin Direct Bilirubin AST ALT Alkaline Phosphatase Total Protein Albumin Lipase Urine WBC (Auto) U Epithel Cells (Auto) Urine Creatinine Hepatitis C Antibody Crossmatch 07/19/19 07/19/19 07/19/19 03:35 04:57 08:15 WBC 11.1 H RBC 3.64 L Hgb Hct MCHC RDW Plt Count 71 L Lymph % (Auto) Cameron % (Auto) Eos % (Auto) Lymph # Cameron # Eos # Seg Neutrophils % Seg Neuts % (Manual) Lymphocytes % (Manual) Monocytes % (Manual) Eosinophils % (Manual) Seg Neutrophils # Seg Neutrophils # Man Lymphocytes # (Manual) Monocytes # (Manual) Eosinophils # (Manual) PT INR POC ABG pH ABG pH 7.296 L POC ABG pCO2 POC ABG pO2 ABG pO2 78.7 L ABG HCO3 26.4 H ABG O2 Saturation ABG Base Excess ABG Hemoglobin 11.1 L Oxyhemoglobin 93.3 L Sodium Potassium Chloride Carbon Dioxide BUN Creatinine Glucose POC Glucose 170 H Lactic Acid Calcium Phosphorus Magnesium Total Bilirubin Direct Bilirubin AST ALT Alkaline Phosphatase Total Protein Albumin Lipase Urine WBC (Auto) U Epithel Cells (Auto) Urine Creatinine Hepatitis C Antibody Crossmatch 07/19/19 07/19/19 07/19/19 08:15 12:34 18:32 WBC RBC Hgb Hct MCHC RDW Plt Count Lymph % (Auto) Cameron % (Auto) Eos % (Auto) Lymph # Cameron # Eos # Seg Neutrophils % Seg Neuts % (Manual) Lymphocytes % (Manual) Monocytes % (Manual) Eosinophils % (Manual) Seg Neutrophils # Seg Neutrophils # Man Lymphocytes # (Manual) Monocytes # (Manual) Eosinophils # (Manual) PT INR POC ABG pH ABG pH POC ABG pCO2 POC ABG pO2 ABG pO2 ABG HCO3 ABG O2 Saturation ABG Base Excess ABG Hemoglobin Oxyhemoglobin Sodium 146 H Potassium 2.9 L* Chloride 107.9 H Carbon Dioxide BUN 35 H Creatinine 1.5 H Glucose 156 H POC Glucose 160 H 138 H Lactic Acid Calcium 6.6 L Phosphorus Magnesium Total Bilirubin Direct Bilirubin AST ALT Alkaline Phosphatase Total Protein Albumin Lipase Urine WBC (Auto) U Epithel Cells (Auto) Urine Creatinine Hepatitis C Antibody Crossmatch 07/19/19 07/19/19 07/20/19 23:41 Unknown 04:20 WBC RBC Hgb Hct MCHC RDW Plt Count Lymph % (Auto) Cameron % (Auto) Eos % (Auto) Lymph # Cameron # Eos # Seg Neutrophils % Seg Neuts % (Manual) Lymphocytes % (Manual) Monocytes % (Manual) Eosinophils % (Manual) Seg Neutrophils # Seg Neutrophils # Man Lymphocytes # (Manual) Monocytes # (Manual) Eosinophils # (Manual) PT INR POC ABG pH ABG pH 7.316 L POC ABG pCO2 POC ABG pO2 ABG pO2 ABG HCO3 27.9 H ABG O2 Saturation ABG Base Excess ABG Hemoglobin Oxyhemoglobin 94.0 L Sodium 149 H Potassium 3.2 L Chloride 112.3 H Carbon Dioxide BUN 34 H Creatinine Glucose 162 H POC Glucose 145 H Lactic Acid Calcium 7.0 L Phosphorus Magnesium 1.50 L Total Bilirubin Direct Bilirubin AST ALT Alkaline Phosphatase Total Protein Albumin Lipase Urine WBC (Auto) U Epithel Cells (Auto) Urine Creatinine Hepatitis C Antibody Crossmatch 07/20/19 07/20/19 07/20/19 05:25 07:50 07:50 WBC 12.6 H RBC 3.51 L Hgb Hct MCHC RDW Plt Count 56 L Lymph % (Auto) Cameron % (Auto) Eos % (Auto) Lymph # Cameron # Eos # Seg Neutrophils % Seg Neuts % (Manual) 89.0 H Lymphocytes % (Manual) 5.0 L Monocytes % (Manual) Eosinophils % (Manual) Seg Neutrophils # Seg Neutrophils # Man 11.2 H Lymphocytes # (Manual) 0.6 L Monocytes # (Manual) Eosinophils # (Manual) PT INR POC ABG pH ABG pH POC ABG pCO2 POC ABG pO2 ABG pO2 ABG HCO3 ABG O2 Saturation ABG Base Excess ABG Hemoglobin Oxyhemoglobin Sodium 151 H Potassium 3.4 L Chloride 114.7 H Carbon Dioxide 31 H BUN 30 H Creatinine Glucose 148 H POC Glucose 141 H Lactic Acid Calcium 7.3 L Phosphorus Magnesium Total Bilirubin Direct Bilirubin AST ALT Alkaline Phosphatase Total Protein Albumin Lipase Urine WBC (Auto) U Epithel Cells (Auto) Urine Creatinine Hepatitis C Antibody Crossmatch 07/20/19 07/20/19 07/20/19 15:47 17:25 23:57 WBC RBC Hgb Hct MCHC RDW Plt Count Lymph % (Auto) Cameron % (Auto) Eos % (Auto) Lymph # Cameron # Eos # Seg Neutrophils % Seg Neuts % (Manual) Lymphocytes % (Manual) Monocytes % (Manual) Eosinophils % (Manual) Seg Neutrophils # Seg Neutrophils # Man Lymphocytes # (Manual) Monocytes # (Manual) Eosinophils # (Manual) PT INR POC ABG pH ABG pH POC ABG pCO2 POC ABG pO2 ABG pO2 ABG HCO3 ABG O2 Saturation ABG Base Excess ABG Hemoglobin Oxyhemoglobin Sodium Potassium Chloride Carbon Dioxide BUN Creatinine Glucose POC Glucose 160 H 165 H 122 H Lactic Acid Calcium Phosphorus Magnesium Total Bilirubin Direct Bilirubin AST ALT Alkaline Phosphatase Total Protein Albumin Lipase Urine WBC (Auto) U Epithel Cells (Auto) Urine Creatinine Hepatitis C Antibody Crossmatch 07/21/19 07/21/19 07/21/19 05:00 05:00 05:00 WBC 15.8 H RBC Hgb Hct MCHC RDW Plt Count 56 L Lymph % (Auto) Cameron % (Auto) Eos % (Auto) Lymph # Cameron # Eos # Seg Neutrophils % Seg Neuts % (Manual) Lymphocytes % (Manual) Monocytes % (Manual) Eosinophils % (Manual) Seg Neutrophils # Seg Neutrophils # Man Lymphocytes # (Manual) Monocytes # (Manual) Eosinophils # (Manual) PT INR POC ABG pH ABG pH POC ABG pCO2 POC ABG pO2 ABG pO2 ABG HCO3 ABG O2 Saturation ABG Base Excess ABG Hemoglobin Oxyhemoglobin Sodium 147 H Potassium 3.5 L Chloride 111.4 H Carbon Dioxide BUN 21 H Creatinine Glucose 107 H POC Glucose Lactic Acid Calcium 7.6 L Phosphorus 1.60 L Magnesium Total Bilirubin 4.80 H Direct Bilirubin AST 48 H ALT Alkaline Phosphatase 131 H Total Protein 4.3 L Albumin 1.5 L Lipase Urine WBC (Auto) U Epithel Cells (Auto) Urine Creatinine Hepatitis C Antibody Crossmatch 07/21/19 07/21/19 07/21/19 05:34 12:12 18:22 WBC RBC Hgb Hct MCHC RDW Plt Count Lymph % (Auto) Cameron % (Auto) Eos % (Auto) Lymph # Cameron # Eos # Seg Neutrophils % Seg Neuts % (Manual) Lymphocytes % (Manual) Monocytes % (Manual) Eosinophils % (Manual) Seg Neutrophils # Seg Neutrophils # Man Lymphocytes # (Manual) Monocytes # (Manual) Eosinophils # (Manual) PT INR POC ABG pH ABG pH POC ABG pCO2 POC ABG pO2 ABG pO2 ABG HCO3 ABG O2 Saturation ABG Base Excess ABG Hemoglobin Oxyhemoglobin Sodium Potassium Chloride Carbon Dioxide BUN Creatinine Glucose POC Glucose 119 H 108 H 125 H Lactic Acid Calcium Phosphorus Magnesium Total Bilirubin Direct Bilirubin AST ALT Alkaline Phosphatase Total Protein Albumin Lipase Urine WBC (Auto) U Epithel Cells (Auto) Urine Creatinine Hepatitis C Antibody Crossmatch 07/21/19 07/21/19 07/22/19 23:27 Unknown 04:25 WBC RBC Hgb Hct MCHC RDW Plt Count Lymph % (Auto) Cameron % (Auto) Eos % (Auto) Lymph # Cameron # Eos # Seg Neutrophils % Seg Neuts % (Manual) Lymphocytes % (Manual) Monocytes % (Manual) Eosinophils % (Manual) Seg Neutrophils # Seg Neutrophils # Man Lymphocytes # (Manual) Monocytes # (Manual) Eosinophils # (Manual) PT INR POC ABG pH ABG pH POC ABG pCO2 POC ABG pO2 ABG pO2 61.9 L 68.7 L ABG HCO3 28.9 H 29.1 H ABG O2 Saturation 93.5 L 94.4 L ABG Base Excess 3.5 H ABG Hemoglobin 10.8 L 11.5 L Oxyhemoglobin 91.6 L 92.3 L Sodium Potassium Chloride Carbon Dioxide BUN Creatinine Glucose POC Glucose 126 H Lactic Acid Calcium Phosphorus Magnesium Total Bilirubin Direct Bilirubin AST ALT Alkaline Phosphatase Total Protein Albumin Lipase Urine WBC (Auto) U Epithel Cells (Auto) Urine Creatinine Hepatitis C Antibody Crossmatch 07/22/19 07/22/19 07/22/19 05:25 07:00 07:00 WBC 14.9 H RBC Hgb Hct MCHC RDW Plt Count 87 L Lymph % (Auto) Cameron % (Auto) Eos % (Auto) Lymph # Cameron # Eos # Seg Neutrophils % Seg Neuts % (Manual) Lymphocytes % (Manual) Monocytes % (Manual) Eosinophils % (Manual) Seg Neutrophils # Seg Neutrophils # Man Lymphocytes # (Manual) Monocytes # (Manual) Eosinophils # (Manual) PT INR POC ABG pH ABG pH POC ABG pCO2 POC ABG pO2 ABG pO2 ABG HCO3 ABG O2 Saturation ABG Base Excess ABG Hemoglobin Oxyhemoglobin Sodium 147 H Potassium 3.3 L Chloride 110.9 H Carbon Dioxide BUN Creatinine 0.6 L Glucose 107 H POC Glucose 107 H Lactic Acid Calcium 7.5 L Phosphorus Magnesium Total Bilirubin Direct Bilirubin AST ALT Alkaline Phosphatase Total Protein Albumin Lipase Urine WBC (Auto) U Epithel Cells (Auto) Urine Creatinine Hepatitis C Antibody Crossmatch 07/22/19 07/22/19 07/23/19 17:41 23:40 04:50 WBC RBC Hgb Hct MCHC RDW Plt Count Lymph % (Auto) [place] % (Auto) Eos % (Auto) Lymph # Cameron # Eos # Seg Neutrophils % Seg Neuts % (Manual) Lymphocytes % (Manual) Monocytes % (Manual) Eosinophils % (Manual) Seg Neutrophils # Seg Neutrophils # Man Lymphocytes # (Manual) Monocytes # (Manual) Eosinophils # (Manual) PT INR POC ABG pH ABG pH POC ABG pCO2 POC ABG pO2 ABG pO2 ABG HCO3 ABG O2 Saturation ABG Base Excess ABG Hemoglobin Oxyhemoglobin Sodium Potassium Chloride Carbon Dioxide BUN Creatinine 0.6 L Glucose 102 H POC Glucose 132 H 123 H Lactic Acid Calcium 7.8 L Phosphorus Magnesium 1.50 L Total Bilirubin Direct Bilirubin AST ALT Alkaline Phosphatase Total Protein Albumin Lipase Urine WBC (Auto) U Epithel Cells (Auto) Urine Creatinine Hepatitis C Antibody Crossmatch 07/23/19 07/23/19 07/23/19 05:00 10:50 10:50 WBC 13.0 H RBC 3.41 L Hgb Hct MCHC RDW Plt Count 100 L Lymph % (Auto) [place] % (Auto) Eos % (Auto) Lymph # Cameron # Eos # Seg Neutrophils % Seg Neuts % (Manual) Lymphocytes % (Manual) Monocytes % (Manual) Eosinophils % (Manual) Seg Neutrophils # Seg Neutrophils # Man Lymphocytes # (Manual) Monocytes # (Manual) Eosinophils # (Manual) PT INR POC ABG pH ABG pH POC ABG pCO2 POC ABG pO2 ABG pO2 100.4 H ABG HCO3 28.7 H ABG O2 Saturation ABG Base Excess ABG Hemoglobin 11.0 L Oxyhemoglobin Sodium Potassium Chloride Carbon Dioxide BUN Creatinine Glucose POC Glucose Lactic Acid Calcium Phosphorus Magnesium Total Bilirubin 2.60 H Direct Bilirubin 2.2 H AST 41 H ALT Alkaline Phosphatase Total Protein 4.4 L Albumin 1.4 L Lipase Urine WBC (Auto) U Epithel Cells (Auto) Urine Creatinine Hepatitis C Antibody Crossmatch 07/23/19 07/23/19 07/23/19 11:49 11:49 17:42 WBC RBC Hgb Hct MCHC RDW Plt Count Lymph % (Auto) [place] % (Auto) Eos % (Auto) Lymph # Cameron # Eos # Seg Neutrophils % Seg Neuts % (Manual) Lymphocytes % (Manual) Monocytes % (Manual) Eosinophils % (Manual) Seg Neutrophils # Seg Neutrophils # Man Lymphocytes # (Manual) Monocytes # (Manual) Eosinophils # (Manual) PT INR POC ABG pH ABG pH POC ABG pCO2 POC ABG pO2 ABG pO2 ABG HCO3 ABG O2 Saturation ABG Base Excess ABG Hemoglobin Oxyhemoglobin Sodium Potassium Chloride Carbon Dioxide BUN Creatinine Glucose POC Glucose 109 H 124 H Lactic Acid Calcium Phosphorus Magnesium Total Bilirubin Direct Bilirubin AST ALT Alkaline Phosphatase Total Protein Albumin Lipase Urine WBC (Auto) U Epithel Cells (Auto) Urine Creatinine Hepatitis C Antibody Reactive A Crossmatch 07/23/19 07/24/19 07/24/19 23:37 03:34 03:34 WBC 13.7 H RBC 3.39 L Hgb Hct 29.9 L MCHC RDW Plt Count 116 L Lymph % (Auto) [place] % (Auto) Eos % (Auto) Lymph # Cameron # Eos # Seg Neutrophils % 77.7 H Seg Neuts % (Manual) Lymphocytes % (Manual) Monocytes % (Manual) Eosinophils % (Manual) Seg Neutrophils # 10.6 H Seg Neutrophils # Man Lymphocytes # (Manual) Monocytes # (Manual) Eosinophils # (Manual) PT INR POC ABG pH ABG pH POC ABG pCO2 POC ABG pO2 ABG pO2 ABG HCO3 ABG O2 Saturation ABG Base Excess ABG Hemoglobin Oxyhemoglobin Sodium Potassium 3.3 L Chloride Carbon Dioxide 35 H BUN Creatinine 0.6 L Glucose 139 H POC Glucose 145 H Lactic Acid Calcium 7.7 L Phosphorus Magnesium Total Bilirubin Direct Bilirubin AST ALT Alkaline Phosphatase Total Protein Albumin Lipase Urine WBC (Auto) U Epithel Cells (Auto) Urine Creatinine Hepatitis C Antibody Crossmatch 07/24/19 07/24/19 07/24/19 04:50 05:11 11:29 WBC RBC Hgb Hct MCHC RDW Plt Count Lymph % (Auto) Cameron % (Auto) Eos % (Auto) Lymph # Cameron # Eos # Seg Neutrophils % Seg Neuts % (Manual) Lymphocytes % (Manual) Monocytes % (Manual) Eosinophils % (Manual) Seg Neutrophils # Seg Neutrophils # Man Lymphocytes # (Manual) Monocytes # (Manual) Eosinophils # (Manual) PT INR POC ABG pH ABG pH 7.457 H POC ABG pCO2 POC ABG pO2 ABG pO2 138.3 H ABG HCO3 32.1 H ABG O2 Saturation ABG Base Excess 7.4 H ABG Hemoglobin 8.2 L Oxyhemoglobin Sodium Potassium Chloride Carbon Dioxide BUN Creatinine Glucose POC Glucose 128 H 123 H Lactic Acid Calcium Phosphorus Magnesium Total Bilirubin Direct Bilirubin AST ALT Alkaline Phosphatase Total Protein Albumin Lipase Urine WBC (Auto) U Epithel Cells (Auto) Urine Creatinine Hepatitis C Antibody Crossmatch 07/24/19 07/24/19 07/25/19 17:50 23:39 04:09 WBC 12.5 H RBC 3.13 L Hgb 9.3 L Hct 27.7 L MCHC RDW Plt Count Lymph % (Auto) Cameron % (Auto) Eos % (Auto) Lymph # Cameron # Eos # Seg Neutrophils % 77.2 H Seg Neuts % (Manual) Lymphocytes % (Manual) Monocytes % (Manual) Eosinophils % (Manual) Seg Neutrophils # 9.6 H Seg Neutrophils # Man Lymphocytes # (Manual) Monocytes # (Manual) Eosinophils # (Manual) PT INR POC ABG pH ABG pH POC ABG pCO2 POC ABG pO2 ABG pO2 ABG HCO3 ABG O2 Saturation ABG Base Excess ABG Hemoglobin Oxyhemoglobin Sodium Potassium Chloride Carbon Dioxide BUN Creatinine Glucose POC Glucose 125 H 144 H Lactic Acid Calcium Phosphorus Magnesium Total Bilirubin Direct Bilirubin AST ALT Alkaline Phosphatase Total Protein Albumin Lipase Urine WBC (Auto) U Epithel Cells (Auto) Urine Creatinine Hepatitis C Antibody Crossmatch 07/25/19 07/25/19 07/25/19 04:09 05:12 05:29 WBC RBC Hgb Hct MCHC RDW Plt Count Lymph % (Auto) Cameron % (Auto) Eos % (Auto) Lymph # Cameron # Eos # Seg Neutrophils % Seg Neuts % (Manual) Lymphocytes % (Manual) Monocytes % (Manual) Eosinophils % (Manual) Seg Neutrophils # Seg Neutrophils # Man Lymphocytes # (Manual) Monocytes # (Manual) Eosinophils # (Manual) PT INR POC ABG pH ABG pH POC ABG pCO2 POC ABG pO2 ABG pO2 65.7 L ABG HCO3 33.6 H ABG O2 Saturation 92.8 L ABG Base Excess 7.9 H ABG Hemoglobin 11.9 L Oxyhemoglobin 90.7 L Sodium Potassium 3.1 L Chloride Carbon Dioxide 34 H BUN Creatinine 0.6 L Glucose 159 H POC Glucose 168 H Lactic Acid Calcium 7.5 L Phosphorus Magnesium Total Bilirubin 1.30 H Direct Bilirubin AST ALT Alkaline Phosphatase Total Protein 4.8 L Albumin 1.4 L Lipase Urine WBC (Auto) U Epithel Cells (Auto) Urine Creatinine Hepatitis C Antibody Crossmatch 07/25/19 07/25/19 07/26/19 11:34 23:30 04:25 WBC RBC Hgb Hct MCHC RDW Plt Count Lymph % (Auto) Cameron % (Auto) Eos % (Auto) Lymph # Cameron # Eos # Seg Neutrophils % Seg Neuts % (Manual) Lymphocytes % (Manual) Monocytes % (Manual) Eosinophils % (Manual) Seg Neutrophils # Seg Neutrophils # Man Lymphocytes # (Manual) Monocytes # (Manual) Eosinophils # (Manual) PT INR POC ABG pH ABG pH POC ABG pCO2 POC ABG pO2 ABG pO2 101.9 H ABG HCO3 32.0 H ABG O2 Saturation ABG Base Excess 6.5 H ABG Hemoglobin 9.9 L Oxyhemoglobin Sodium Potassium Chloride Carbon Dioxide BUN Creatinine Glucose POC Glucose 124 H 126 H Lactic Acid Calcium Phosphorus Magnesium Total Bilirubin Direct Bilirubin AST ALT Alkaline Phosphatase Total Protein Albumin Lipase Urine WBC (Auto) U Epithel Cells (Auto) Urine Creatinine Hepatitis C Antibody Crossmatch 07/26/19 07/26/19 07/26/19 05:00 05:00 05:38 WBC 12.3 H RBC 3.11 L Hgb 9.2 L Hct 28.2 L MCHC RDW 15.4 H Plt Count Lymph % (Auto) Cameron % (Auto) 7.8 H Eos % (Auto) Lymph # Cameron # 1.0 H Eos # Seg Neutrophils % 73.0 H Seg Neuts % (Manual) Lymphocytes % (Manual) Monocytes % (Manual) Eosinophils % (Manual) Seg Neutrophils # 8.9 H Seg Neutrophils # Man Lymphocytes # (Manual) Monocytes # (Manual) Eosinophils # (Manual) PT INR POC ABG pH ABG pH POC ABG pCO2 POC ABG pO2 ABG pO2 ABG HCO3 ABG O2 Saturation ABG Base Excess ABG Hemoglobin Oxyhemoglobin Sodium Potassium Chloride Carbon Dioxide 32 H BUN Creatinine Glucose 135 H POC Glucose 145 H Lactic Acid Calcium 7.9 L Phosphorus Magnesium Total Bilirubin Direct Bilirubin AST ALT Alkaline Phosphatase Total Protein Albumin Lipase Urine WBC (Auto) U Epithel Cells (Auto) Urine Creatinine Hepatitis C Antibody Crossmatch 07/26/19 07/26/19 07/26/19 11:16 17:55 23:26 WBC RBC Hgb Hct MCHC RDW Plt Count Lymph % (Auto) Cameron % (Auto) Eos % (Auto) Lymph # Cameron # Eos # Seg Neutrophils % Seg Neuts % (Manual) Lymphocytes % (Manual) Monocytes % (Manual) Eosinophils % (Manual) Seg Neutrophils # Seg Neutrophils # Man Lymphocytes # (Manual) Monocytes # (Manual) Eosinophils # (Manual) PT INR POC ABG pH ABG pH POC ABG pCO2 POC ABG pO2 ABG pO2 ABG HCO3 ABG O2 Saturation ABG Base Excess ABG Hemoglobin Oxyhemoglobin Sodium Potassium Chloride Carbon Dioxide BUN Creatinine Glucose POC Glucose 140 H 123 H 128 H Lactic Acid Calcium Phosphorus Magnesium Total Bilirubin Direct Bilirubin AST ALT Alkaline Phosphatase Total Protein Albumin Lipase Urine WBC (Auto) U Epithel Cells (Auto) Urine Creatinine Hepatitis C Antibody Crossmatch 07/27/19 07/27/19 07/27/19 05:29 05:40 05:40 WBC 13.2 H RBC 3.26 L Hgb 9.6 L Hct 29.5 L MCHC RDW Plt Count Lymph % (Auto) Cameron % (Auto) Eos % (Auto) Lymph # Cameron # 0.9 H Eos # Seg Neutrophils % 73.6 H Seg Neuts % (Manual) Lymphocytes % (Manual) Monocytes % (Manual) Eosinophils % (Manual) Seg Neutrophils # 9.7 H Seg Neutrophils # Man Lymphocytes # (Manual) Monocytes # (Manual) Eosinophils # (Manual) PT INR POC ABG pH ABG pH POC ABG pCO2 POC ABG pO2 ABG pO2 ABG HCO3 ABG O2 Saturation ABG Base Excess ABG Hemoglobin Oxyhemoglobin Sodium Potassium Chloride Carbon Dioxide BUN Creatinine 0.6 L Glucose 136 H POC Glucose 143 H Lactic Acid Calcium 8.2 L Phosphorus Magnesium Total Bilirubin Direct Bilirubin AST ALT Alkaline Phosphatase Total Protein Albumin Lipase Urine WBC (Auto) U Epithel Cells (Auto) Urine Creatinine Hepatitis C Antibody Crossmatch 07/27/19 07/27/19 07/27/19 06:29 12:32 17:24 WBC RBC Hgb Hct MCHC RDW Plt Count Lymph % (Auto) Cameron % (Auto) Eos % (Auto) Lymph # Cameron # Eos # Seg Neutrophils % Seg Neuts % (Manual) Lymphocytes % (Manual) Monocytes % (Manual) Eosinophils % (Manual) Seg Neutrophils # Seg Neutrophils # Man Lymphocytes # (Manual) Monocytes # (Manual) Eosinophils # (Manual) PT INR POC ABG pH 7.460 H ABG pH POC ABG pCO2 POC ABG pO2 60 L ABG pO2 ABG HCO3 ABG O2 Saturation ABG Base Excess ABG Hemoglobin Oxyhemoglobin Sodium Potassium Chloride Carbon Dioxide BUN Creatinine Glucose POC Glucose 139 H 126 H Lactic Acid Calcium Phosphorus Magnesium Total Bilirubin Direct Bilirubin AST ALT Alkaline Phosphatase Total Protein Albumin Lipase Urine WBC (Auto) U Epithel Cells (Auto) Urine Creatinine Hepatitis C Antibody Crossmatch 07/28/19 07/28/19 07/28/19 00:00 05:42 11:37 WBC RBC Hgb Hct MCHC RDW Plt Count Lymph % (Auto) Cameron % (Auto) Eos % (Auto) Lymph # Cameron # Eos # Seg Neutrophils % Seg Neuts % (Manual) Lymphocytes % (Manual) Monocytes % (Manual) Eosinophils % (Manual) Seg Neutrophils # Seg Neutrophils # Man Lymphocytes # (Manual) Monocytes # (Manual) Eosinophils # (Manual) PT INR POC ABG pH ABG pH POC ABG pCO2 POC ABG pO2 ABG pO2 ABG HCO3 ABG O2 Saturation ABG Base Excess ABG Hemoglobin Oxyhemoglobin Sodium Potassium Chloride Carbon Dioxide BUN Creatinine Glucose POC Glucose 120 H 114 H 111 H Lactic Acid Calcium Phosphorus Magnesium Total Bilirubin Direct Bilirubin AST ALT Alkaline Phosphatase Total Protein Albumin Lipase Urine WBC (Auto) U Epithel Cells (Auto) Urine Creatinine Hepatitis C Antibody Crossmatch 07/28/19 07/28/19 07/28/19 11:50 11:50 23:49 WBC 22.7 H RBC 3.63 L Hgb Hct MCHC RDW Plt Count 520 H Lymph % (Auto) Cameron % (Auto) Eos % (Auto) Lymph # Cameron # Eos # Seg Neutrophils % Seg Neuts % (Manual) Lymphocytes % (Manual) Monocytes % (Manual) Eosinophils % (Manual) Seg Neutrophils # Seg Neutrophils # Man Lymphocytes # (Manual) Monocytes # (Manual) Eosinophils # (Manual) PT INR POC ABG pH ABG pH POC ABG pCO2 POC ABG pO2 ABG pO2 ABG HCO3 ABG O2 Saturation ABG Base Excess ABG Hemoglobin Oxyhemoglobin Sodium 134 L Potassium 5.6 H D Chloride 96.9 L Carbon Dioxide BUN Creatinine Glucose 121 H POC Glucose 129 H Lactic Acid Calcium Phosphorus Magnesium Total Bilirubin Direct Bilirubin AST ALT Alkaline Phosphatase Total Protein Albumin Lipase Urine WBC (Auto) U Epithel Cells (Auto) Urine Creatinine Hepatitis C Antibody Crossmatch 07/28/19 07/29/19 07/29/19 Unknown 03:50 05:13 WBC RBC Hgb Hct MCHC RDW Plt Count Lymph % (Auto) Cameron % (Auto) Eos % (Auto) Lymph # Cameron # Eos # Seg Neutrophils % Seg Neuts % (Manual) Lymphocytes % (Manual) Monocytes % (Manual) Eosinophils % (Manual) Seg Neutrophils # Seg Neutrophils # Man Lymphocytes # (Manual) Monocytes # (Manual) Eosinophils # (Manual) PT INR POC ABG pH ABG pH 7.498 H 7.453 H POC ABG pCO2 POC ABG pO2 ABG pO2 59.8 L ABG HCO3 29.0 H ABG O2 Saturation 94.1 L ABG Base Excess 4.6 H ABG Hemoglobin 9.1 L Oxyhemoglobin 91.5 L Sodium Potassium Chloride Carbon Dioxide BUN Creatinine Glucose POC Glucose 132 H Lactic Acid Calcium Phosphorus Magnesium Total Bilirubin Direct Bilirubin AST ALT Alkaline Phosphatase Total Protein Albumin Lipase Urine WBC (Auto) U Epithel Cells (Auto) Urine Creatinine Hepatitis C Antibody Crossmatch 07/29/19 07/29/19 07/29/19 06:00 06:00 11:56 WBC 12.3 H RBC 3.02 L Hgb 9.1 L Hct 26.7 L D MCHC RDW Plt Count 475 H Lymph % (Auto) Cameron % (Auto) 11.0 H Eos % (Auto) Lymph # Cameron # 1.4 H Eos # 0.5 H Seg Neutrophils % Seg Neuts % (Manual) Lymphocytes % (Manual) Monocytes % (Manual) Eosinophils % (Manual) Seg Neutrophils # Seg Neutrophils # Man Lymphocytes # (Manual) Monocytes # (Manual) Eosinophils # (Manual) PT INR POC ABG pH ABG pH POC ABG pCO2 POC ABG pO2 ABG pO2 ABG HCO3 ABG O2 Saturation ABG Base Excess ABG Hemoglobin Oxyhemoglobin Sodium 136 L Potassium Chloride 97.5 L Carbon Dioxide BUN 19 H Creatinine Glucose 136 H POC Glucose 139 H Lactic Acid Calcium Phosphorus Magnesium Total Bilirubin Direct Bilirubin AST ALT Alkaline Phosphatase Total Protein Albumin Lipase Urine WBC (Auto) U Epithel Cells (Auto) Urine Creatinine Hepatitis C Antibody Crossmatch 07/29/19 07/29/19 07/30/19 17:38 23:30 05:00 WBC 11.2 H RBC 3.05 L Hgb 9.1 L Hct 27.4 L MCHC RDW Plt Count 576 H Lymph % (Auto) Cameron % (Auto) 12.5 H Eos % (Auto) 5.2 H Lymph # Cameron # 1.4 H Eos # 0.6 H Seg Neutrophils % Seg Neuts % (Manual) Lymphocytes % (Manual) Monocytes % (Manual) Eosinophils % (Manual) Seg Neutrophils # Seg Neutrophils # Man Lymphocytes # (Manual) Monocytes # (Manual) Eosinophils # (Manual) PT INR POC ABG pH ABG pH POC ABG pCO2 POC ABG pO2 ABG pO2 ABG HCO3 ABG O2 Saturation ABG Base Excess ABG Hemoglobin Oxyhemoglobin Sodium Potassium Chloride Carbon Dioxide BUN Creatinine Glucose POC Glucose 158 H 114 H Lactic Acid Calcium Phosphorus Magnesium Total Bilirubin Direct Bilirubin AST ALT Alkaline Phosphatase Total Protein Albumin Lipase Urine WBC (Auto) U Epithel Cells (Auto) Urine Creatinine Hepatitis C Antibody Crossmatch 07/30/19 07/30/19 07/30/19 05:00 05:37 12:32 WBC RBC Hgb Hct MCHC RDW Plt Count Lymph % (Auto) Cameron % (Auto) Eos % (Auto) Lymph # Cameron # Eos # Seg Neutrophils % Seg Neuts % (Manual) Lymphocytes % (Manual) Monocytes % (Manual) Eosinophils % (Manual) Seg Neutrophils # Seg Neutrophils # Man Lymphocytes # (Manual) Monocytes # (Manual) Eosinophils # (Manual) PT INR POC ABG pH ABG pH POC ABG pCO2 POC ABG pO2 ABG pO2 ABG HCO3 ABG O2 Saturation ABG Base Excess ABG Hemoglobin Oxyhemoglobin Sodium 136 L Potassium Chloride 97.1 L Carbon Dioxide BUN 21 H Creatinine Glucose 131 H POC Glucose 128 H 138 H Lactic Acid Calcium Phosphorus Magnesium Total Bilirubin Direct Bilirubin AST ALT Alkaline Phosphatase Total Protein Albumin Lipase Urine WBC (Auto) U Epithel Cells (Auto) Urine Creatinine Hepatitis C Antibody Crossmatch 07/30/19 07/30/19 07/30/19 13:53 20:48 23:54 WBC RBC Hgb Hct MCHC RDW Plt Count Lymph % (Auto) Cameron % (Auto) Eos % (Auto) Lymph # Cameron # Eos # Seg Neutrophils % Seg Neuts % (Manual) Lymphocytes % (Manual) Monocytes % (Manual) Eosinophils % (Manual) Seg Neutrophils # Seg Neutrophils # Man Lymphocytes # (Manual) Monocytes # (Manual) Eosinophils # (Manual) PT INR POC ABG pH ABG pH POC ABG pCO2 POC ABG pO2 ABG pO2 122.4 H ABG HCO3 ABG O2 Saturation ABG Base Excess -2.4 L ABG Hemoglobin 9.4 L Oxyhemoglobin Sodium Potassium Chloride Carbon Dioxide BUN Creatinine Glucose POC Glucose 162 H Lactic Acid Calcium Phosphorus Magnesium Total Bilirubin Direct Bilirubin AST ALT Alkaline Phosphatase Total Protein Albumin Lipase Urine WBC (Auto) U Epithel Cells (Auto) Urine Creatinine Hepatitis C Antibody Crossmatch See Detail 08/30/19 08/30/19 08/30/19 05:16 09:45 09:45 WBC 12.1 H RBC 3.26 L Hgb 10.0 L Hct 28.9 L MCHC 35 H RDW Plt Count 566 H Lymph % (Auto) 8.4 L Cameron % (Auto) Eos % (Auto) Lymph # 1.0 L Cameron # Eos # Seg Neutrophils % 85.0 H Seg Neuts % (Manual) Lymphocytes % (Manual) Monocytes % (Manual) Eosinophils % (Manual) Seg Neutrophils # 10.3 H Seg Neutrophils # Man Lymphocytes # (Manual) Monocytes # (Manual) Eosinophils # (Manual) PT INR POC ABG pH ABG pH POC ABG pCO2 POC ABG pO2 ABG pO2 ABG HCO3 ABG O2 Saturation ABG Base Excess ABG Hemoglobin Oxyhemoglobin Sodium Potassium Chloride Carbon Dioxide BUN 23 H Creatinine Glucose 165 H POC Glucose 221 H Lactic Acid Calcium Phosphorus Magnesium Total Bilirubin Direct Bilirubin AST ALT Alkaline Phosphatase Total Protein Albumin Lipase Urine WBC (Auto) U Epithel Cells (Auto) Urine Creatinine Hepatitis C Antibody Crossmatch 07/31/19 07/31/19 08/01/19 13:44 Unknown 08:30 WBC RBC 3.37 L Hgb Hct 29.9 L MCHC 35 H RDW Plt Count 606 H Lymph % (Auto) Cameron % (Auto) Eos % (Auto) Lymph # Cameron # Eos # Seg Neutrophils % Seg Neuts % (Manual) Lymphocytes % (Manual) Monocytes % (Manual) Eosinophils % (Manual) Seg Neutrophils # Seg Neutrophils # Man Lymphocytes # (Manual) Monocytes # (Manual) Eosinophils # (Manual) PT INR POC ABG pH ABG pH POC ABG pCO2 POC ABG pO2 ABG pO2 128.9 H ABG HCO3 ABG O2 Saturation ABG Base Excess -2.1 L ABG Hemoglobin 11.3 L Oxyhemoglobin Sodium Potassium Chloride Carbon Dioxide BUN Creatinine Glucose POC Glucose 148 H Lactic Acid Calcium Phosphorus Magnesium Total Bilirubin Direct Bilirubin AST ALT Alkaline Phosphatase Total Protein Albumin Lipase Urine WBC (Auto) U Epithel Cells (Auto) Urine Creatinine Hepatitis C Antibody Crossmatch 08/01/19 08:30 WBC RBC Hgb Hct MCHC RDW Plt Count Lymph % (Auto) Cameron % (Auto) Eos % (Auto) Lymph # Cameron # Eos # Seg Neutrophils % Seg Neuts % (Manual) Lymphocytes % (Manual) Monocytes % (Manual) Eosinophils % (Manual) Seg Neutrophils # Seg Neutrophils # Man Lymphocytes # (Manual) Monocytes # (Manual) Eosinophils # (Manual) PT INR POC ABG pH ABG pH POC ABG pCO2 POC ABG pO2 ABG pO2 ABG HCO3 ABG O2 Saturation ABG Base Excess ABG Hemoglobin Oxyhemoglobin Sodium Potassium Chloride Carbon Dioxide BUN 23 H Creatinine Glucose 104 H POC Glucose Lactic Acid Calcium Phosphorus Magnesium Total Bilirubin Direct Bilirubin AST ALT Alkaline Phosphatase Total Protein Albumin Lipase Urine WBC (Auto) U Epithel Cells (Auto) Urine Creatinine Hepatitis C Antibody Crossmatch
[2019-08-01] MEDS: ZOFRAN IV PRN (12:56)
--- NOTE | 2019-08-01 13:07 | Progress Note ---
Assessment and Plan /Acute hypoxic respiratory failure; requiring intubation >96h - ARDS Likely from severe sepsis Required high FiO2 and PEEP to maintain oxygen saturation - trended down s/p bronch 07/28/19 - negative BAL s/p extubation 07/31/19 cont nebs, supplemntal O2 as needed / Severe sepsis with Septic shock and organ failure from left renal abscess/bacteremia/right foot cellulites with persistent fever Secondary to pyelonephritis with renal abscess and Escherichia coli bacteremia. weaned off pressor, Continue abx per ID, CTAP with contrast showed left renal abscess - s/p left nephrectomy 07/30 by Urologist Abx Stop date: 08/05/2019 /E.coli bacteremia, likely source from pyelonephritis and renal abscess Continue to treat with empiric antibiotic per ID recommendation till 08/05 - s/p left nephrectomy 07/30 by Urologist /Transaminitis - Could be from severe sepsis versus and underlying chronic hepatitis C - trending down LFTs, s/p HIDA scan showed normal study - hepatitis panel showed positive hepatitis C antibody - need further outpatient follow-up / Acute pyelonephritis with left renal abscess - Decreased leukocytosis. on iv abx, s/p left nephrectomy 07/30 / Cellulites of right foot, improved with abx /Acute renal failure due to ATN from severe sepsis Creatinine was 2.2 on admission monitor renal function, Cr now stable / Malnutrition s/p NG tube feedings. Nutrition following start on clear liquid diet /Electrolyte imbalance Hyponatremia -s/p free water with tube feeding, cont iv fluid Hypokalemia - continue to replete as needed and continue to monitor BMP Hypomagnesemia - replete as needed, continue to follow Transfer out of icu today Consult PT Brief history The patient is a 44-year-old female with bipolar disorder presented to the emergency room with right foot pain, abdominal pain and fevers. She previously presented to the emergency room on 06/28/2019 with right foot with redness and pain following a possible spider bite. She was given a prescription for oral Augmentin and was discharged home. Patient stated that she was compliant with Augmentin and also was soaking her right foot in Epsom salts. About 2-3 days prior to admission, she started developing fevers, nausea as well as worsening abdominal pain. She has presented to the emergency room and was hospitalized. She was noted to be septic,Started on empiric antibiotics. She decompensated on the floor and required intubation and transferred to ICU for further management on 07/17/2019. Also required pressors for septic shock, blood culture growing Escherichia coli bacteremia. S/p s/p left nephrectomy 07/30 by Urologist for left renal abscess. off pressor, s/p extubation 07/31/19. Cont post-op care, advance diet, PT/OT, complete abx Radiological data: CT abdomen/pelvis: 1. Mild nonspecific left-sided perinephric stranding in this patient with punctate bilateral nonobstructive nephrolithiasis. No asymmetric hydronephrosis or ureteral stone disease. 2. Complex cyst versus mass in the left ovary. Recommend nonemergent follow-up pelvic ultrasound. 3. Mild periportal edema could be related to aggressive hydration therapy. 4. Other incidental findings as outlined above on this limited noncontrast exam with mild motion artifact. Of note, there is a 5 mm nodule in the right middle lobe. Please see below recommendations. Abdomen ultrasound: 1. No gallstones, but the gallbladder wall is thickened and edematous. 2. Small bilateral pleural effusions. Hospitalist Physical General appearance: Present: no acute distress, - EENT Eyes: Present: PERRL, EOM intact - Neck Neck: Present: supple, normal ROM - Respiratory Respiratory effort: labored Respiratory: bilateral: diminished, rhonchi, negative: rales, wheezing - Cardiovascular Rhythm: regular Heart Sounds: Present: S1 & S2 - Extremities Extremities: no ischemia, no edema Extremity abnormal: edema - Abdominal General gastrointestinal: soft, non-tender, non-distended, normal bowel sounds - Integumentary Integumentary: Present: clear, warm - Psychiatric Psychiatric: anxious - Neurologic Neurologic: no focal deficit Subjective Date of service: 08/01/19 Principal diagnosis: Acute respiratory failure Interval history: Patient seen and examined afebrile, c/o back pain tolerated clear liquid and oral pills Mother at bedside - updated Objective - Constitutional Vitals: Vital Signs - 12hr 08/01/19 08/01/19 08/01/19 01:55 01:57 02:00 Temperature Pulse Rate 92 H Pulse Rate [ From Monitor] Pulse Rate [ 87 None] Respiratory 24 18 22 Rate Blood Pressure 119/75 119/75 O2 Sat by Pulse 94 94 Oximetry 08/01/19 08/01/19 08/01/19 02:27 03:00 03:44 Temperature 99.3 F Pulse Rate 79 Pulse Rate [ From Monitor] Pulse Rate [ None] Respiratory 18 33 H Rate Blood Pressure 111/64 O2 Sat by Pulse 89 Oximetry 08/01/19 08/01/19 08/01/19 04:00 04:30 04:39 Temperature Pulse Rate 83 Pulse Rate [ 86 From Monitor] Pulse Rate [ None] Respiratory 27 H 26 H 25 H Rate Blood Pressure 117/78 O2 Sat by Pulse 94 Oximetry 08/01/19 08/01/19 08/01/19 05:01 05:09 05:14 Temperature Pulse Rate 97 H Pulse Rate [ From Monitor] Pulse Rate [ None] Respiratory 24 28 H 32 H Rate Blood Pressure 125/79 O2 Sat by Pulse 97 Oximetry 08/01/19 08/01/19 08/01/19 06:00 07:00 07:36 Temperature Pulse Rate 83 79 Pulse Rate [ From Monitor] Pulse Rate [ None] Respiratory 33 H 26 H 32 H Rate Blood Pressure 121/75 116/70 O2 Sat by Pulse 96 Oximetry 08/01/19 08/01/19 08/01/19 08:00 08:02 09:00 Temperature 98.3 F Pulse Rate 77 88 Pulse Rate [ 82 From Monitor] Pulse Rate [ None] Respiratory 22 23 Rate Blood Pressure 118/71 110/76 O2 Sat by Pulse 100 100 96 Oximetry 08/01/19 08/01/19 08/01/19 10:01 11:00 12:00 Temperature 99.3 F Pulse Rate 95 H 89 92 H Pulse Rate [ 82 From Monitor] Pulse Rate [ None] Respiratory 15 37 H 28 H Rate Blood Pressure 110/76 124/83 O2 Sat by Pulse 99 100 Oximetry 08/01/19 08/01/19 12:01 13:00 Temperature Pulse Rate 111 H 95 H Pulse Rate [ From Monitor] Pulse Rate [ None] Respiratory 19 27 H Rate Blood Pressure 137/86 138/83 O2 Sat by Pulse 94 Oximetry - Labs CBC & Chem 7: 08/01/19 08:30 08/01/19 08:30 Labs: Abnormal lab results 07/30/19 07/31/19 08/01/19 Range/Units 13:53 13:44 08:30 RBC 3.37 L (3.65-5.03) M/mm3 Hct 29.9 L (30.3-42.9) % MCHC 35 H (30-34) % Plt Count 606 H (140-440) K/mm3 BUN (7-17) mg/dL Glucose (65-100) mg/dL POC Glucose 148 H (70-105) Crossmatch See Detail 08/01/19 Range/Units 08:30 RBC (3.65-5.03) M/mm3 Hct (30.3-42.9) % MCHC (30-34) % Plt Count (140-440) K/mm3 BUN 23 H (7-17) mg/dL Glucose 104 H (65-100) mg/dL POC Glucose (70-105) Crossmatch
--- NOTE | 2019-08-01 14:38 | Progress Note ---
Subjective Date of service: 08/01/19 Principal diagnosis: Acute respiratory failure Interval history: S/P LEFT NEPHRECTOMY - 07-30-19 (WILL/KAREN) This is a 44 yo F With past medical history of bipolar disorder, who presents to [facility] with abdominal pain fever and right foot pain. She was seen on 06/28 in ER for insect bite on her right big toe, for which she was treated with 10 days of antibiotics with Augmentin. However patient returned to ER c/o intermittent fevers, body aches, weakness and nausea and malaise generalized abdominal pain for worsening redness of her right foot. Labs showed elevated WBC > 11.7, along with signs of UTI with UA showing > 182 WBC/HPF. CT A/P also showed L perinephric stranding. Pt also showed signs of acute renal failure with BUN/Cr at 46/2.2mg/dl. Multiple complaints but found to be hypotensive requiring vasopressor therapypt is admitted for sepsis Repeat CT---left kidney abscess off pressors mother at bedside/hydronephrosis during pregancy in the past (?side) pt alert abd -- left flank incision -clean---dressing removed MIRTHA intact gordon---clear urine a/p S/P LEFT NEPHRECTOMY - 07-30-19 (WILL/KAREN) - ABSCESS CONTINUE PRESENT CARE ok to transfer to floor on oral pain meds (last dilaudid per nurse--10am) dilaudid 1mg now for breakthrought Objective - Constitutional Vitals: Vital Signs - 12hr 08/01/19 08/01/19 08/01/19 03:00 03:44 04:00 Temperature 99.3 F Pulse Rate 79 83 Pulse Rate [ From Monitor] Respiratory 33 H 27 H Rate Blood Pressure 111/64 117/78 O2 Sat by Pulse 89 Oximetry 08/01/19 08/01/19 08/01/19 04:30 04:39 05:01 Temperature Pulse Rate 97 H Pulse Rate [ 86 From Monitor] Respiratory 26 H 25 H 24 Rate Blood Pressure 125/79 O2 Sat by Pulse 94 97 Oximetry 08/01/19 08/01/19 08/01/19 05:09 05:14 06:00 Temperature Pulse Rate 83 Pulse Rate [ From Monitor] Respiratory 28 H 32 H 33 H Rate Blood Pressure 121/75 O2 Sat by Pulse 96 Oximetry 08/01/19 08/01/19 08/01/19 07:00 07:36 08:00 Temperature 98.3 F Pulse Rate 79 77 Pulse Rate [ 82 From Monitor] Respiratory 26 H 32 H 22 Rate Blood Pressure 116/70 118/71 O2 Sat by Pulse 100 Oximetry 08/01/19 08/01/19 08/01/19 08:02 09:00 10:01 Temperature Pulse Rate 88 95 H Pulse Rate [ From Monitor] Respiratory 23 15 Rate Blood Pressure 110/76 110/76 O2 Sat by Pulse 100 96 99 Oximetry 08/01/19 08/01/19 08/01/19 11:00 12:00 12:01 Temperature 99.3 F Pulse Rate 89 92 H 111 H Pulse Rate [ 82 From Monitor] Respiratory 37 H 28 H 19 Rate Blood Pressure 124/83 137/86 O2 Sat by Pulse 100 Oximetry 08/01/19 08/01/19 13:00 14:00 Temperature Pulse Rate 95 H 83 Pulse Rate [ From Monitor] Respiratory 27 H 18 Rate Blood Pressure 138/83 131/81 O2 Sat by Pulse 94 97 Oximetry - Labs CBC & Chem 7: 08/01/19 08:30 08/01/19 08:30 Labs: Abnormal lab results 07/30/19 08/01/19 08/01/19 Range/Units 13:53 08:30 08:30 RBC 3.37 L (3.65-5.03) M/mm3 Hct 29.9 L (30.3-42.9) % MCHC 35 H (30-34) % Plt Count 606 H (140-440) K/mm3 BUN 23 H (7-17) mg/dL Glucose 104 H (65-100) mg/dL Crossmatch See Detail Medications & Allergies - Medications Allergies/Adverse Reactions: Allergies latex Allergy (Verified 06/28/19 17:11) Anaphylaxis tramadol [From Ultram] Allergy (Verified 06/28/19 17:10) Unknown haloperidol [From Haldol] Adverse Reaction (Verified 07/17/19 05:55) Shortness of Breath agitation/combative ketorolac [From Toradol] Adverse Reaction (Verified 06/28/19 17:10) Seizure prochlorperazine [From Compazine] Adverse Reaction (Verified 06/28/19 17:11) Unknown Home Medications: Home Medications Medication Instructions Recorded Confirmed Last Taken Type No Known Home Medications [No 07/16/19 07/16/19 Unknown History Reported Home Medications] Active Medications: Generic Name Dose Route Start Last Admin Trade Name Joan PRN Reason Stop Dose Admin Acetaminophen 650 mg 07/16/19 05:36 07/31/19 20:47 Tylenol PO 650 mg Q4H PRN Administration Pain MILD(1-3)/Fever >100.5/WHALEN Acetaminophen 650 mg 07/30/19 17:44 Tylenol IL Q4H PRN Pain, Mild (1-3) Albuterol 2.5 mg 07/16/19 22:48 07/16/19 23:01 Proventil IH 2.5 mg Q4HRT PRN Administration Shortness Of Breath Lipase/Protease/Amylase 1 each 07/18/19 14:34 Pancreaze 10,500 Unit FEEDTUBE PRN PRN For Clogged Feeding Tube Dextrose 50 ml 07/17/19 03:17 07/17/19 05:30 D50w (25gm) Syringe IV 50 ml PRN PRN Administration Hypoglycemia Enoxaparin Sodium 40 mg 07/31/19 11:00 08/01/19 09:43 Lovenox SUB-Q 40 mg QDAY@1000 KASIE Administration Famotidine 20 mg 07/20/19 10:00 08/01/19 09:42 Pepcid PO 20 mg BID KASIE Administration Hydrochlorothiazide 25 mg 07/23/19 10:00 08/01/19 10:00 Hctz PO 25 mg QDAY KASIE Administration Hydromorphone HCl 2 mg 08/01/19 10:00 08/01/19 10:17 Dilaudid IV 2 mg Q3H PRN Administration Pain , Severe (7-10) Hydrophilic Ointment 1 applic 07/17/19 03:18 Vaseline Lip Therapy TP Q2HR PRN Dry Lips Ceftriaxone Sodium 2 gm in 100 mls @ 200 mls/hr 07/20/19 13:00 08/01/19 09:44 Rocephin/Ns 2 Gm/100 Ml IV 200 mls/hr Q24HR KASIE Administration Protocol Multi-Ingred Cream/Lotion/Oil/Oint 1 applic 07/17/19 03:18 Artificial Tears Ophth Oint OU Q4HR PRN Dry Eye(s) Nicotine 14 mg 07/16/19 10:00 08/01/19 10:21 Habitrol TD 14 mg QDAY KASIE Administration Ondansetron HCl 4 mg 07/16/19 05:36 08/01/19 12:56 Zofran IV 4 mg Q8H PRN Administration Nausea And Vomiting Oxycodone/Acetaminophen 2 tab 08/01/19 10:00 08/01/19 14:02 Percocet 5/325 PO 2 tab Q6H PRN Administration Pain, Moderate (4-6) Quetiapine Fumarate 50 mg 07/28/19 11:00 08/01/19 09:44 Seroquel PO Not Given BID KASIE Simple Syrup 15 ml 07/18/19 14:34 Simple Syrup FEEDTUBE PRN PRN Hypoglycemia Simple Syrup 30 ml 07/18/19 14:34 Simple Syrup FEEDTUBE PRN PRN Hypoglycemia Sodium Bicarbonate 325 mg 07/18/19 14:34 Sodium Bicarbonate FEEDTUBE PRN PRN For Clogged Feeding Tube Sodium Chloride 10 ml 07/16/19 10:00 08/01/19 09:44 Sodium Chloride Flush Syringe 10 Ml IV 10 ml BID KASIE Administration Sodium Chloride 10 ml 07/16/19 05:36 Sodium Chloride Flush Syringe 10 Ml IV PRN PRN LINE FLUSH Sodium Polystyrene Sulfonate 15 gm 07/28/19 22:14 07/28/19 22:35 Kionex PO 15 gm Q6H PRN Administration Hyperkalemia
[2019-08-02] MEDS: DILAUDID IV PRN ×6 (01:16→23:37)
[2019-08-02] MEDS: ZOFRAN IV PRN ×2 (01:20→10:08)
[2019-08-02] MEDS: ROCEPHIN/NS 2 GM/100 ML 2 GM/100 ML BAG IV SCH (09:55)
[2019-08-02] MEDS: HABITROL TD SCH (09:56)
[2019-08-02] MEDS: LOVENOX SUB-Q SCH (09:56)
[2019-08-02] MEDS: PEPCID PO SCH ×2 (09:56→21:32)
[2019-08-02] MEDS: SODIUM CHLORIDE FLUSH SYRINGE 10 ML IV SCH ×2 (09:57→21:33)
[2019-08-02] MEDS: HCTZ PO SCH (09:57)
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
--- NOTE | 2019-08-02 12:05 | Progress Note ---
Assessment and Plan /Acute hypoxic respiratory failure; requiring intubation >96h - ARDS Likely from severe sepsis Required high FiO2 and PEEP to maintain oxygen saturation - trended down s/p bronch 07/28/19 - negative BAL s/p extubation 07/31/19 cont nebs, supplemntal O2 as needed / Severe sepsis with Septic shock and organ failure from left renal abscess/bacteremia/right foot cellulites with persistent fever Secondary to pyelonephritis with renal abscess and Escherichia coli bacteremia. weaned off pressor, Continue abx per ID, CTAP with contrast showed left renal abscess - s/p left nephrectomy 07/30 by Urologist Abx Stop date: 08/05/2019 /E.coli bacteremia, likely source from pyelonephritis and renal abscess Continue to treat with empiric antibiotic per ID recommendation till 08/05 - s/p left nephrectomy 07/30 by Urologist /Transaminitis - Could be from severe sepsis versus and underlying chronic hepatitis C - trending down LFTs, s/p HIDA scan showed normal study - hepatitis panel showed positive hepatitis C antibody - need further outpatient follow-up / Acute pyelonephritis with left renal abscess - Decreased leukocytosis. on iv abx, s/p left nephrectomy 07/30 / Cellulites of right foot, improved with abx /Acute renal failure due to ATN from severe sepsis Creatinine was 2.2 on admission monitor renal function, Cr now stable / Malnutrition s/p NG tube feedings. Nutrition following start on clear liquid diet /Electrolyte imbalance Hyponatremia -s/p free water with tube feeding, cont iv fluid Hypokalemia - continue to replete as needed and continue to monitor BMP Hypomagnesemia - replete as needed, continue to follow Consult PT - pending Brief history The patient is a 44-year-old female with bipolar disorder presented to the emergency room with right foot pain, abdominal pain and fevers. She previously presented to the emergency room on 06/28/2019 with right foot with redness and pain following a possible spider bite. She was given a prescription for oral Augmentin and was discharged home. Patient stated that she was compliant with Augmentin and also was soaking her right foot in Epsom salts. About 2-3 days prior to admission, she started developing fevers, nausea as well as worsening abdominal pain. She has presented to the emergency room and was hospitalized. She was noted to be septic,Started on empiric antibiotics. She decompensated on the floor and required intubation and transferred to ICU for further management on 07/17/2019. Also required pressors for septic shock, blood culture growing Escherichia coli bacteremia. S/p s/p left nephrectomy 07/30 by Urologist for left renal abscess. off pressor, s/p extubation 07/31/19. Cont post-op care, advance diet, PT/OT, complete abx Radiological data: CT abdomen/pelvis: 1. Mild nonspecific left-sided perinephric stranding in this patient with punctate bilateral nonobstructive nephrolithiasis. No asymmetric hydronephrosis or ureteral stone disease. 2. Complex cyst versus mass in the left ovary. Recommend nonemergent follow-up pelvic ultrasound. 3. Mild periportal edema could be related to aggressive hydration therapy. 4. Other incidental findings as outlined above on this limited noncontrast exam with mild motion artifact. Of note, there is a 5 mm nodule in the right middle lobe. Please see below recommendations. Abdomen ultrasound: 1. No gallstones, but the gallbladder wall is thickened and edematous. 2. Small bilateral pleural effusions. Hospitalist Physical General appearance: Present: no acute distress, - EENT Eyes: Present: PERRL, EOM intact - Neck Neck: Present: supple, normal ROM - Respiratory Respiratory effort: non labored Respiratory: bilateral: CTABL, no rhonchi, negative: rales, wheezing - Cardiovascular Rhythm: regular Heart Sounds: Present: S1 & S2 - Extremities Extremities: no ischemia, no edema Extremity abnormal: edema - Abdominal General gastrointestinal: soft, non-tender, non-distended, normal bowel sounds - Integumentary Integumentary: Present: clear, warm - Psychiatric Psychiatric: cooperative - Neurologic Neurologic: no focal deficit Subjective Date of service: 08/02/19 Principal diagnosis: Acute respiratory failure Interval history: Patient seen and examined afebrile, c/o back pain -but better tolerated clear liquid and oral pills- advanced to regular today Mother at bedside - updated PT eval pending Objective - Constitutional Vitals: Vital Signs - 12hr 08/02/19 08/02/19 08/02/19 00:36 00:37 00:53 Temperature 99.1 F 99.1 F Pulse Rate 76 71 72 Respiratory 18 18 Rate Blood Pressure Blood Pressure 138/88 [Right] O2 Sat by Pulse 100 100 100 Oximetry 08/02/19 08/02/19 08/02/19 05:19 08:10 11:22 Temperature 98.7 F 97.6 F 98.2 F Pulse Rate 75 75 86 Respiratory 18 20 20 Rate Blood Pressure 147/96 116/84 Blood Pressure 123/84 [Right] O2 Sat by Pulse 96 100 99 Oximetry - Labs CBC & Chem 7: 08/03/19 07:00 08/03/19 07:00
[2019-08-02] MEDS: PERCOCET 5/325 PO PRN ×2 (13:17→20:11)
--- NOTE | 2019-08-02 13:39 | Progress Note ---
Assessment and Plan 44 y/o female with abdominal pain found to have right sided mass vs cysts with acute vs chronic vs acute chronic renal failure, UTI and possible cellulitis of lower ext and found to have left kidney with multiple abscesses, s/p nephrectomy . Stable pulm status. Weaned off oxygen. Will sign off. Call if questions. Subjective Date of service: 08/02/19 Principal diagnosis: Acute respiratory failure Interval history: No acute events. Transferred to Post surgical floor. Stable. Off oxygen. Mother at bedside. Objective Vital Signs - 12hr 08/02/19 08/02/19 08/02/19 05:19 08:10 10:27 Temperature 98.7 F 97.6 F Pulse Rate 75 75 Respiratory 18 20 20 Rate Blood Pressure 147/96 Blood Pressure 123/84 [Right] O2 Sat by Pulse 96 100 Oximetry 08/02/19 11:22 Temperature 98.2 F Pulse Rate 86 Respiratory 20 Rate Blood Pressure 116/84 Blood Pressure [Right] O2 Sat by Pulse 99 Oximetry Constitutional: other (sedated, critically ill on ventilator. Opens eyes to tactile stimule) Eyes: non-icteric ENT: other (orally intubated and sedated) Neck: supple Effort: normal Ascultation: Bilateral: diminished breath sounds, rales, other (coarse equal BS bilaterally) Percussion: Bilateral: not dull Cardiovascular: regular rate and rhythm (sinus tach) Gastrointestinal: normoactive bowel sounds, soft, non-tender, non-distended Integumentary: normal Extremities: no cyanosis, no edema, pink and warm Neurologic: non-focal exam, other (sedated opens eyes to tactile stimuli) Psychiatric: other (unable to obtain) CBC and BMP: 08/01/19 08:30 08/01/19 08:30 ABG, PT/INR, D-dimer: ABG POC ABG pH 7.460 (7.35-7.45) H 07/27/19 06:29 ABG pH 7.402 pH Units (7.350-7.450) 07/31/19 Unknown POC ABG pCO2 42.4 (35-45) 07/27/19 06:29 ABG pCO2 36.6 mm Hg 07/31/19 Unknown POC ABG pO2 60 (80-105) L 07/27/19 06:29 ABG pO2 128.9 mm Hg (80.0-90.0) H 07/31/19 Unknown POC ABG HCO3 30.1 (22-26 mml/L) 07/27/19 06:29 POC ABG Total CO2 31 (23-27mmol/L) 07/27/19 06:29 POC ABG O2 Sat 92 07/27/19 06:29 ABG O2 Saturation 98.5 % (95.0-99.0) 07/31/19 Unknown PT/INR, D-dimer PT 16.3 Sec. (12.2-14.9) H 07/16/19 05:47 INR 1.35 (0.87-1.13) H 07/16/19 05:47 Abnormal lab findings: Abnormal Labs 07/16/19 07/16/19 07/16/19 02:01 02:01 02:01 WBC 11.7 H RBC Hgb Hct MCHC RDW Plt Count 101 L Lymph % (Auto) [place] % (Auto) Eos % (Auto) Lymph # [place] # Eos # Seg Neutrophils % Seg Neuts % (Manual) 92.0 H Lymphocytes % (Manual) 5.0 L Monocytes % (Manual) Eosinophils % (Manual) Seg Neutrophils # Seg Neutrophils # Man 10.8 H Lymphocytes # (Manual) 0.6 L Monocytes # (Manual) Eosinophils # (Manual) PT 15.2 H INR 1.23 H POC ABG pH ABG pH POC ABG pCO2 POC ABG pO2 ABG pO2 ABG HCO3 ABG O2 Saturation ABG Base Excess ABG Hemoglobin Oxyhemoglobin Sodium Potassium Chloride Carbon Dioxide 18 L BUN 46 H Creatinine 2.2 H Glucose 116 H POC Glucose Lactic Acid Calcium Phosphorus Magnesium Total Bilirubin Direct Bilirubin AST 63 H ALT 125 H Alkaline Phosphatase Total Protein 6.2 L Albumin 2.8 L Lipase Urine WBC (Auto) U Epithel Cells (Auto) Urine Creatinine Hepatitis C Antibody Crossmatch 07/16/19 07/16/19 07/16/19 02:16 02:43 04:07 WBC RBC Hgb Hct MCHC RDW Plt Count Lymph % (Auto) [place] % (Auto) Eos % (Auto) Lymph # [place] # Eos # Seg Neutrophils % Seg Neuts % (Manual) Lymphocytes % (Manual) Monocytes % (Manual) Eosinophils % (Manual) Seg Neutrophils # Seg Neutrophils # Man Lymphocytes # (Manual) Monocytes # (Manual) Eosinophils # (Manual) PT INR POC ABG pH ABG pH POC ABG pCO2 POC ABG pO2 ABG pO2 ABG HCO3 ABG O2 Saturation ABG Base Excess ABG Hemoglobin Oxyhemoglobin Sodium Potassium Chloride Carbon Dioxide BUN Creatinine Glucose POC Glucose Lactic Acid 2.10 H* 2.30 H* Calcium Phosphorus Magnesium Total Bilirubin Direct Bilirubin AST ALT Alkaline Phosphatase Total Protein Albumin Lipase 6 L Urine WBC (Auto) U Epithel Cells (Auto) Urine Creatinine Hepatitis C Antibody Crossmatch 07/16/19 07/16/19 07/16/19 05:47 05:59 14:30 WBC RBC Hgb Hct MCHC RDW Plt Count Lymph % (Auto) [place] % (Auto) Eos % (Auto) Lymph # [place] # Eos # Seg Neutrophils % Seg Neuts % (Manual) Lymphocytes % (Manual) Monocytes % (Manual) Eosinophils % (Manual) Seg Neutrophils # Seg Neutrophils # Man Lymphocytes # (Manual) Monocytes # (Manual) Eosinophils # (Manual) PT 16.3 H INR 1.35 H POC ABG pH ABG pH POC ABG pCO2 POC ABG pO2 ABG pO2 ABG HCO3 ABG O2 Saturation ABG Base Excess ABG Hemoglobin Oxyhemoglobin Sodium Potassium Chloride Carbon Dioxide BUN Creatinine Glucose POC Glucose Lactic Acid Calcium Phosphorus Magnesium Total Bilirubin Direct Bilirubin AST ALT Alkaline Phosphatase Total Protein Albumin Lipase Urine WBC (Auto) > 182.0 H U Epithel Cells (Auto) 21.0 H Urine Creatinine 76.6 H Hepatitis C Antibody Crossmatch 07/16/19 07/17/19 07/17/19 23:27 00:03 00:03 WBC RBC Hgb Hct MCHC RDW Plt Count Lymph % (Auto) [place] % (Auto) Eos % (Auto) Lymph # [place] # Eos # Seg Neutrophils % Seg Neuts % (Manual) Lymphocytes % (Manual) Monocytes % (Manual) Eosinophils % (Manual) Seg Neutrophils # Seg Neutrophils # Man Lymphocytes # (Manual) Monocytes # (Manual) Eosinophils # (Manual) PT INR POC ABG pH 7.093 L ABG pH POC ABG pCO2 32.8 L POC ABG pO2 66 L ABG pO2 ABG HCO3 ABG O2 Saturation ABG Base Excess ABG Hemoglobin Oxyhemoglobin Sodium 148 H D Potassium Chloride 120.5 H Carbon Dioxide 14 L BUN 35 H Creatinine 1.5 H Glucose 42 L POC Glucose Lactic Acid 2.90 H* Calcium 5.7 L* D Phosphorus Magnesium Total Bilirubin Direct Bilirubin AST ALT Alkaline Phosphatase Total Protein Albumin Lipase Urine WBC (Auto) U Epithel Cells (Auto) Urine Creatinine Hepatitis C Antibody Crossmatch 07/17/19 07/17/19 07/17/19 03:01 03:29 03:40 WBC 13.2 H RBC Hgb Hct MCHC RDW Plt Count 116 L Lymph % (Auto) [place] % (Auto) Eos % (Auto) Lymph # [place] # Eos # Seg Neutrophils % Seg Neuts % (Manual) Lymphocytes % (Manual) 9.0 L Monocytes % (Manual) Eosinophils % (Manual) 24.0 H Seg Neutrophils # Seg Neutrophils # Man 8.6 H Lymphocytes # (Manual) Monocytes # (Manual) Eosinophils # (Manual) 3.2 H PT INR POC ABG pH 6.981 L ABG pH POC ABG pCO2 55.6 H POC ABG pO2 ABG pO2 ABG HCO3 ABG O2 Saturation ABG Base Excess ABG Hemoglobin Oxyhemoglobin Sodium Potassium Chloride Carbon Dioxide BUN Creatinine Glucose POC Glucose 64 L Lactic Acid Calcium Phosphorus Magnesium Total Bilirubin Direct Bilirubin AST ALT Alkaline Phosphatase Total Protein Albumin Lipase Urine WBC (Auto) U Epithel Cells (Auto) Urine Creatinine Hepatitis C Antibody Crossmatch 07/17/19 07/17/19 07/17/19 03:40 03:40 04:08 WBC RBC Hgb Hct MCHC RDW Plt Count Lymph % (Auto) [place] % (Auto) Eos % (Auto) Lymph # [place] # Eos # Seg Neutrophils % Seg Neuts % (Manual) Lymphocytes % (Manual) Monocytes % (Manual) Eosinophils % (Manual) Seg Neutrophils # Seg Neutrophils # Man Lymphocytes # (Manual) Monocytes # (Manual) Eosinophils # (Manual) PT INR POC ABG pH 7.056 L ABG pH POC ABG pCO2 POC ABG pO2 63 L ABG pO2 ABG HCO3 ABG O2 Saturation ABG Base Excess ABG Hemoglobin Oxyhemoglobin Sodium 147 H Potassium Chloride 120.2 H Carbon Dioxide 14 L BUN 36 H Creatinine 1.6 H Glucose POC Glucose Lactic Acid 3.20 H* Calcium 6.0 L Phosphorus Magnesium Total Bilirubin Direct Bilirubin AST ALT Alkaline Phosphatase Total Protein Albumin Lipase Urine WBC (Auto) U Epithel Cells (Auto) Urine Creatinine Hepatitis C Antibody Crossmatch 07/17/19 07/17/19 07/17/19 05:33 05:45 06:51 WBC RBC Hgb Hct MCHC RDW Plt Count Lymph % (Auto) [place] % (Auto) Eos % (Auto) Lymph # [place] # Eos # Seg Neutrophils % Seg Neuts % (Manual) Lymphocytes % (Manual) Monocytes % (Manual) Eosinophils % (Manual) Seg Neutrophils # Seg Neutrophils # Man Lymphocytes # (Manual) Monocytes # (Manual) Eosinophils # (Manual) PT INR POC ABG pH 7.061 L ABG pH POC ABG pCO2 49.0 H POC ABG pO2 ABG pO2 ABG HCO3 ABG O2 Saturation ABG Base Excess ABG Hemoglobin Oxyhemoglobin Sodium Potassium Chloride Carbon Dioxide BUN Creatinine Glucose POC Glucose 64 L 239 H Lactic Acid Calcium Phosphorus Magnesium Total Bilirubin Direct Bilirubin AST ALT Alkaline Phosphatase Total Protein Albumin Lipase Urine WBC (Auto) U Epithel Cells (Auto) Urine Creatinine Hepatitis C Antibody Crossmatch 07/17/19 07/17/19 07/17/19 10:57 12:56 18:11 WBC RBC Hgb Hct MCHC RDW Plt Count Lymph % (Auto) [place] % (Auto) Eos % (Auto) Lymph # [place] # Eos # Seg Neutrophils % Seg Neuts % (Manual) Lymphocytes % (Manual) Monocytes % (Manual) Eosinophils % (Manual) Seg Neutrophils # Seg Neutrophils # Man Lymphocytes # (Manual) Monocytes # (Manual) Eosinophils # (Manual) PT INR POC ABG pH ABG pH 7.192 L* POC ABG pCO2 POC ABG pO2 ABG pO2 67.5 L ABG HCO3 16.3 L ABG O2 Saturation 92.6 L ABG Base Excess -11.4 L ABG Hemoglobin Oxyhemoglobin 91.1 L Sodium Potassium Chloride Carbon Dioxide BUN Creatinine Glucose POC Glucose 107 H 122 H Lactic Acid Calcium Phosphorus Magnesium Total Bilirubin Direct Bilirubin AST ALT Alkaline Phosphatase Total Protein Albumin Lipase Urine WBC (Auto) U Epithel Cells (Auto) Urine Creatinine Hepatitis C Antibody Crossmatch 07/17/19 07/17/19 07/18/19 23:34 Unknown 04:00 WBC RBC Hgb Hct MCHC RDW Plt Count 85 L Lymph % (Auto) [place] % (Auto) Eos % (Auto) Lymph # [place] # Eos # Seg Neutrophils % Seg Neuts % (Manual) 82.0 H Lymphocytes % (Manual) 2.0 L Monocytes % (Manual) 12.0 H Eosinophils % (Manual) Seg Neutrophils # Seg Neutrophils # Man Lymphocytes # (Manual) 0.2 L Monocytes # (Manual) 1.1 H Eosinophils # (Manual) PT INR POC ABG pH ABG pH 7.237 L POC ABG pCO2 POC ABG pO2 ABG pO2 142.4 H ABG HCO3 17.0 L ABG O2 Saturation ABG Base Excess -9.8 L ABG Hemoglobin Oxyhemoglobin Sodium Potassium Chloride Carbon Dioxide BUN Creatinine Glucose POC Glucose 136 H Lactic Acid Calcium Phosphorus Magnesium Total Bilirubin Direct Bilirubin AST ALT Alkaline Phosphatase Total Protein Albumin Lipase Urine WBC (Auto) U Epithel Cells (Auto) Urine Creatinine Hepatitis C Antibody Crossmatch 07/18/19 07/18/19 07/18/19 04:00 05:31 05:51 WBC RBC Hgb Hct MCHC RDW Plt Count Lymph % (Auto) [place] % (Auto) Eos % (Auto) Lymph # [place] # Eos # Seg Neutrophils % Seg Neuts % (Manual) Lymphocytes % (Manual) Monocytes % (Manual) Eosinophils % (Manual) Seg Neutrophils # Seg Neutrophils # Man Lymphocytes # (Manual) Monocytes # (Manual) Eosinophils # (Manual) PT INR POC ABG pH 7.239 L ABG pH POC ABG pCO2 56.9 H POC ABG pO2 ABG pO2 ABG HCO3 ABG O2 Saturation ABG Base Excess ABG Hemoglobin Oxyhemoglobin Sodium 151 H Potassium 3.2 L D Chloride 114.7 H Carbon Dioxide BUN 42 H Creatinine 2.1 H Glucose 130 H POC Glucose 135 H Lactic Acid Calcium 6.0 L Phosphorus Magnesium Total Bilirubin 2.10 H Direct Bilirubin AST 59 H ALT 62 H Alkaline Phosphatase Total Protein 4.8 L D Albumin 2.0 L Lipase Urine WBC (Auto) U Epithel Cells (Auto) Urine Creatinine Hepatitis C Antibody Crossmatch 07/18/19 07/18/19 07/18/19 12:05 18:30 23:40 WBC RBC Hgb Hct MCHC RDW Plt Count Lymph % (Auto) [place] % (Auto) Eos % (Auto) Lymph # [place] # Eos # Seg Neutrophils % Seg Neuts % (Manual) Lymphocytes % (Manual) Monocytes % (Manual) Eosinophils % (Manual) Seg Neutrophils # Seg Neutrophils # Man Lymphocytes # (Manual) Monocytes # (Manual) Eosinophils # (Manual) PT INR POC ABG pH ABG pH POC ABG pCO2 POC ABG pO2 ABG pO2 ABG HCO3 ABG O2 Saturation ABG Base Excess ABG Hemoglobin Oxyhemoglobin Sodium Potassium Chloride Carbon Dioxide BUN Creatinine Glucose POC Glucose 126 H 131 H 163 H Lactic Acid Calcium Phosphorus Magnesium Total Bilirubin Direct Bilirubin AST ALT Alkaline Phosphatase Total Protein Albumin Lipase Urine WBC (Auto) U Epithel Cells (Auto) Urine Creatinine Hepatitis C Antibody Crossmatch 07/19/19 07/19/19 07/19/19 03:35 04:57 08:15 WBC 11.1 H RBC 3.64 L Hgb Hct MCHC RDW Plt Count 71 L Lymph % (Auto) [place] % (Auto) Eos % (Auto) Lymph # [place] # Eos # Seg Neutrophils % Seg Neuts % (Manual) Lymphocytes % (Manual) Monocytes % (Manual) Eosinophils % (Manual) Seg Neutrophils # Seg Neutrophils # Man Lymphocytes # (Manual) Monocytes # (Manual) Eosinophils # (Manual) PT INR POC ABG pH ABG pH 7.296 L POC ABG pCO2 POC ABG pO2 ABG pO2 78.7 L ABG HCO3 26.4 H ABG O2 Saturation ABG Base Excess ABG Hemoglobin 11.1 L Oxyhemoglobin 93.3 L Sodium Potassium Chloride Carbon Dioxide BUN Creatinine Glucose POC Glucose 170 H Lactic Acid Calcium Phosphorus Magnesium Total Bilirubin Direct Bilirubin AST ALT Alkaline Phosphatase Total Protein Albumin Lipase Urine WBC (Auto) U Epithel Cells (Auto) Urine Creatinine Hepatitis C Antibody Crossmatch 07/19/19 07/19/19 07/19/19 08:15 12:34 18:32 WBC RBC Hgb Hct MCHC RDW Plt Count Lymph % (Auto) [place] % (Auto) Eos % (Auto) Lymph # [place] # Eos # Seg Neutrophils % Seg Neuts % (Manual) Lymphocytes % (Manual) Monocytes % (Manual) Eosinophils % (Manual) Seg Neutrophils # Seg Neutrophils # Man Lymphocytes # (Manual) Monocytes # (Manual) Eosinophils # (Manual) PT INR POC ABG pH ABG pH POC ABG pCO2 POC ABG pO2 ABG pO2 ABG HCO3 ABG O2 Saturation ABG Base Excess ABG Hemoglobin Oxyhemoglobin Sodium 146 H Potassium 2.9 L* Chloride 107.9 H Carbon Dioxide BUN 35 H Creatinine 1.5 H Glucose 156 H POC Glucose 160 H 138 H Lactic Acid Calcium 6.6 L Phosphorus Magnesium Total Bilirubin Direct Bilirubin AST ALT Alkaline Phosphatase Total Protein Albumin Lipase Urine WBC (Auto) U Epithel Cells (Auto) Urine Creatinine Hepatitis C Antibody Crossmatch 07/19/19 07/19/19 07/20/19 23:41 Unknown 04:20 WBC RBC Hgb Hct MCHC RDW Plt Count Lymph % (Auto) [place] % (Auto) Eos % (Auto) Lymph # [place] # Eos # Seg Neutrophils % Seg Neuts % (Manual) Lymphocytes % (Manual) Monocytes % (Manual) Eosinophils % (Manual) Seg Neutrophils # Seg Neutrophils # Man Lymphocytes # (Manual) Monocytes # (Manual) Eosinophils # (Manual) PT INR POC ABG pH ABG pH 7.316 L POC ABG pCO2 POC ABG pO2 ABG pO2 ABG HCO3 27.9 H ABG O2 Saturation ABG Base Excess ABG Hemoglobin Oxyhemoglobin 94.0 L Sodium 149 H Potassium 3.2 L Chloride 112.3 H Carbon Dioxide BUN 34 H Creatinine Glucose 162 H POC Glucose 145 H Lactic Acid Calcium 7.0 L Phosphorus Magnesium 1.50 L Total Bilirubin Direct Bilirubin AST ALT Alkaline Phosphatase Total Protein Albumin Lipase Urine WBC (Auto) U Epithel Cells (Auto) Urine Creatinine Hepatitis C Antibody Crossmatch 07/20/19 07/20/19 07/20/19 05:25 07:50 07:50 WBC 12.6 H RBC 3.51 L Hgb Hct MCHC RDW Plt Count 56 L Lymph % (Auto) [place] % (Auto) Eos % (Auto) Lymph # [place] # Eos # Seg Neutrophils % Seg Neuts % (Manual) 89.0 H Lymphocytes % (Manual) 5.0 L Monocytes % (Manual) Eosinophils % (Manual) Seg Neutrophils # Seg Neutrophils # Man 11.2 H Lymphocytes # (Manual) 0.6 L Monocytes # (Manual) Eosinophils # (Manual) PT INR POC ABG pH ABG pH POC ABG pCO2 POC ABG pO2 ABG pO2 ABG HCO3 ABG O2 Saturation ABG Base Excess ABG Hemoglobin Oxyhemoglobin Sodium 151 H Potassium 3.4 L Chloride 114.7 H Carbon Dioxide 31 H BUN 30 H Creatinine Glucose 148 H POC Glucose 141 H Lactic Acid Calcium 7.3 L Phosphorus Magnesium Total Bilirubin Direct Bilirubin AST ALT Alkaline Phosphatase Total Protein Albumin Lipase Urine WBC (Auto) U Epithel Cells (Auto) Urine Creatinine Hepatitis C Antibody Crossmatch 07/20/19 07/20/19 07/20/19 15:47 17:25 23:57 WBC RBC Hgb Hct MCHC RDW Plt Count Lymph % (Auto) [place] % (Auto) Eos % (Auto) Lymph # [place] # Eos # Seg Neutrophils % Seg Neuts % (Manual) Lymphocytes % (Manual) Monocytes % (Manual) Eosinophils % (Manual) Seg Neutrophils # Seg Neutrophils # Man Lymphocytes # (Manual) Monocytes # (Manual) Eosinophils # (Manual) PT INR POC ABG pH ABG pH POC ABG pCO2 POC ABG pO2 ABG pO2 ABG HCO3 ABG O2 Saturation ABG Base Excess ABG Hemoglobin Oxyhemoglobin Sodium Potassium Chloride Carbon Dioxide BUN Creatinine Glucose POC Glucose 160 H 165 H 122 H Lactic Acid Calcium Phosphorus Magnesium Total Bilirubin Direct Bilirubin AST ALT Alkaline Phosphatase Total Protein Albumin Lipase Urine WBC (Auto) U Epithel Cells (Auto) Urine Creatinine Hepatitis C Antibody Crossmatch 07/21/19 07/21/19 07/21/19 05:00 05:00 05:00 WBC 15.8 H RBC Hgb Hct MCHC RDW Plt Count 56 L Lymph % (Auto) [place] % (Auto) Eos % (Auto) Lymph # [place] # Eos # Seg Neutrophils % Seg Neuts % (Manual) Lymphocytes % (Manual) Monocytes % (Manual) Eosinophils % (Manual) Seg Neutrophils # Seg Neutrophils # Man Lymphocytes # (Manual) Monocytes # (Manual) Eosinophils # (Manual) PT INR POC ABG pH ABG pH POC ABG pCO2 POC ABG pO2 ABG pO2 ABG HCO3 ABG O2 Saturation ABG Base Excess ABG Hemoglobin Oxyhemoglobin Sodium 147 H Potassium 3.5 L Chloride 111.4 H Carbon Dioxide BUN 21 H Creatinine Glucose 107 H POC Glucose Lactic Acid Calcium 7.6 L Phosphorus 1.60 L Magnesium Total Bilirubin 4.80 H Direct Bilirubin AST 48 H ALT Alkaline Phosphatase 131 H Total Protein 4.3 L Albumin 1.5 L Lipase Urine WBC (Auto) U Epithel Cells (Auto) Urine Creatinine Hepatitis C Antibody Crossmatch 07/21/19 07/21/19 07/21/19 05:34 12:12 18:22 WBC RBC Hgb Hct MCHC RDW Plt Count Lymph % (Auto) [place] % (Auto) Eos % (Auto) Lymph # [place] # Eos # Seg Neutrophils % Seg Neuts % (Manual) Lymphocytes % (Manual) Monocytes % (Manual) Eosinophils % (Manual) Seg Neutrophils # Seg Neutrophils # Man Lymphocytes # (Manual) Monocytes # (Manual) Eosinophils # (Manual) PT INR POC ABG pH ABG pH POC ABG pCO2 POC ABG pO2 ABG pO2 ABG HCO3 ABG O2 Saturation ABG Base Excess ABG Hemoglobin Oxyhemoglobin Sodium Potassium Chloride Carbon Dioxide BUN Creatinine Glucose POC Glucose 119 H 108 H 125 H Lactic Acid Calcium Phosphorus Magnesium Total Bilirubin Direct Bilirubin AST ALT Alkaline Phosphatase Total Protein Albumin Lipase Urine WBC (Auto) U Epithel Cells (Auto) Urine Creatinine Hepatitis C Antibody Crossmatch 07/21/19 07/21/19 07/22/19 23:27 Unknown 04:25 WBC RBC Hgb Hct MCHC RDW Plt Count Lymph % (Auto) [place] % (Auto) Eos % (Auto) Lymph # [place] # Eos # Seg Neutrophils % Seg Neuts % (Manual) Lymphocytes % (Manual) Monocytes % (Manual) Eosinophils % (Manual) Seg Neutrophils # Seg Neutrophils # Man Lymphocytes # (Manual) Monocytes # (Manual) Eosinophils # (Manual) PT INR POC ABG pH ABG pH POC ABG pCO2 POC ABG pO2 ABG pO2 61.9 L 68.7 L ABG HCO3 28.9 H 29.1 H ABG O2 Saturation 93.5 L 94.4 L ABG Base Excess 3.5 H ABG Hemoglobin 10.8 L 11.5 L Oxyhemoglobin 91.6 L 92.3 L Sodium Potassium Chloride Carbon Dioxide BUN Creatinine Glucose POC Glucose 126 H Lactic Acid Calcium Phosphorus Magnesium Total Bilirubin Direct Bilirubin AST ALT Alkaline Phosphatase Total Protein Albumin Lipase Urine WBC (Auto) U Epithel Cells (Auto) Urine Creatinine Hepatitis C Antibody Crossmatch 07/22/19 07/22/19 07/22/19 05:25 07:00 07:00 WBC 14.9 H RBC Hgb Hct MCHC RDW Plt Count 87 L Lymph % (Auto) [place] % (Auto) Eos % (Auto) Lymph # [place] # Eos # Seg Neutrophils % Seg Neuts % (Manual) Lymphocytes % (Manual) Monocytes % (Manual) Eosinophils % (Manual) Seg Neutrophils # Seg Neutrophils # Man Lymphocytes # (Manual) Monocytes # (Manual) Eosinophils # (Manual) PT INR POC ABG pH ABG pH POC ABG pCO2 POC ABG pO2 ABG pO2 ABG HCO3 ABG O2 Saturation ABG Base Excess ABG Hemoglobin Oxyhemoglobin Sodium 147 H Potassium 3.3 L Chloride 110.9 H Carbon Dioxide BUN Creatinine 0.6 L Glucose 107 H POC Glucose 107 H Lactic Acid Calcium 7.5 L Phosphorus Magnesium Total Bilirubin Direct Bilirubin AST ALT Alkaline Phosphatase Total Protein Albumin Lipase Urine WBC (Auto) U Epithel Cells (Auto) Urine Creatinine Hepatitis C Antibody Crossmatch 07/22/19 07/22/19 07/23/19 17:41 23:40 04:50 WBC RBC Hgb Hct MCHC RDW Plt Count Lymph % (Auto) [place] % (Auto) Eos % (Auto) Lymph # [place] # Eos # Seg Neutrophils % Seg Neuts % (Manual) Lymphocytes % (Manual) Monocytes % (Manual) Eosinophils % (Manual) Seg Neutrophils # Seg Neutrophils # Man Lymphocytes # (Manual) Monocytes # (Manual) Eosinophils # (Manual) PT INR POC ABG pH ABG pH POC ABG pCO2 POC ABG pO2 ABG pO2 ABG HCO3 ABG O2 Saturation ABG Base Excess ABG Hemoglobin Oxyhemoglobin Sodium Potassium Chloride Carbon Dioxide BUN Creatinine 0.6 L Glucose 102 H POC Glucose 132 H 123 H Lactic Acid Calcium 7.8 L Phosphorus Magnesium 1.50 L Total Bilirubin Direct Bilirubin AST ALT Alkaline Phosphatase Total Protein Albumin Lipase Urine WBC (Auto) U Epithel Cells (Auto) Urine Creatinine Hepatitis C Antibody Crossmatch 07/23/19 07/23/19 07/23/19 05:00 10:50 10:50 WBC 13.0 H RBC 3.41 L Hgb Hct MCHC RDW Plt Count 100 L Lymph % (Auto) [place] % (Auto) Eos % (Auto) Lymph # [place] # Eos # Seg Neutrophils % Seg Neuts % (Manual) Lymphocytes % (Manual) Monocytes % (Manual) Eosinophils % (Manual) Seg Neutrophils # Seg Neutrophils # Man Lymphocytes # (Manual) Monocytes # (Manual) Eosinophils # (Manual) PT INR POC ABG pH ABG pH POC ABG pCO2 POC ABG pO2 ABG pO2 100.4 H ABG HCO3 28.7 H ABG O2 Saturation ABG Base Excess ABG Hemoglobin 11.0 L Oxyhemoglobin Sodium Potassium Chloride Carbon Dioxide BUN Creatinine Glucose POC Glucose Lactic Acid Calcium Phosphorus Magnesium Total Bilirubin 2.60 H Direct Bilirubin 2.2 H AST 41 H ALT Alkaline Phosphatase Total Protein 4.4 L Albumin 1.4 L Lipase Urine WBC (Auto) U Epithel Cells (Auto) Urine Creatinine Hepatitis C Antibody Crossmatch 07/23/19 07/23/19 07/23/19 11:49 11:49 17:42 WBC RBC Hgb Hct MCHC RDW Plt Count Lymph % (Auto) [place] % (Auto) Eos % (Auto) Lymph # [place] # Eos # Seg Neutrophils % Seg Neuts % (Manual) Lymphocytes % (Manual) Monocytes % (Manual) Eosinophils % (Manual) Seg Neutrophils # Seg Neutrophils # Man Lymphocytes # (Manual) Monocytes # (Manual) Eosinophils # (Manual) PT INR POC ABG pH ABG pH POC ABG pCO2 POC ABG pO2 ABG pO2 ABG HCO3 ABG O2 Saturation ABG Base Excess ABG Hemoglobin Oxyhemoglobin Sodium Potassium Chloride Carbon Dioxide BUN Creatinine Glucose POC Glucose 109 H 124 H Lactic Acid Calcium Phosphorus Magnesium Total Bilirubin Direct Bilirubin AST ALT Alkaline Phosphatase Total Protein Albumin Lipase Urine WBC (Auto) U Epithel Cells (Auto) Urine Creatinine Hepatitis C Antibody Reactive A Crossmatch 07/23/19 07/24/19 07/24/19 23:37 03:34 03:34 WBC 13.7 H RBC 3.39 L Hgb Hct 29.9 L MCHC RDW Plt Count 116 L Lymph % (Auto) [place] % (Auto) Eos % (Auto) Lymph # [place] # Eos # Seg Neutrophils % 77.7 H Seg Neuts % (Manual) Lymphocytes % (Manual) Monocytes % (Manual) Eosinophils % (Manual) Seg Neutrophils # 10.6 H Seg Neutrophils # Man Lymphocytes # (Manual) Monocytes # (Manual) Eosinophils # (Manual) PT INR POC ABG pH ABG pH POC ABG pCO2 POC ABG pO2 ABG pO2 ABG HCO3 ABG O2 Saturation ABG Base Excess ABG Hemoglobin Oxyhemoglobin Sodium Potassium 3.3 L Chloride Carbon Dioxide 35 H BUN Creatinine 0.6 L Glucose 139 H POC Glucose 145 H Lactic Acid Calcium 7.7 L Phosphorus Magnesium Total Bilirubin Direct Bilirubin AST ALT Alkaline Phosphatase Total Protein Albumin Lipase Urine WBC (Auto) U Epithel Cells (Auto) Urine Creatinine Hepatitis C Antibody Crossmatch 07/24/19 07/24/19 07/24/19 04:50 05:11 11:29 WBC RBC Hgb Hct MCHC RDW Plt Count Lymph % (Auto) [place] % (Auto) Eos % (Auto) Lymph # [place] # Eos # Seg Neutrophils % Seg Neuts % (Manual) Lymphocytes % (Manual) Monocytes % (Manual) Eosinophils % (Manual) Seg Neutrophils # Seg Neutrophils # Man Lymphocytes # (Manual) Monocytes # (Manual) Eosinophils # (Manual) PT INR POC ABG pH ABG pH 7.457 H POC ABG pCO2 POC ABG pO2 ABG pO2 138.3 H ABG HCO3 32.1 H ABG O2 Saturation ABG Base Excess 7.4 H ABG Hemoglobin 8.2 L Oxyhemoglobin Sodium Potassium Chloride Carbon Dioxide BUN Creatinine Glucose POC Glucose 128 H 123 H Lactic Acid Calcium Phosphorus Magnesium Total Bilirubin Direct Bilirubin AST ALT Alkaline Phosphatase Total Protein Albumin Lipase Urine WBC (Auto) U Epithel Cells (Auto) Urine Creatinine Hepatitis C Antibody Crossmatch 07/24/19 07/24/19 07/25/19 17:50 23:39 04:09 WBC 12.5 H RBC 3.13 L Hgb 9.3 L Hct 27.7 L MCHC RDW Plt Count Lymph % (Auto) [place] % (Auto) Eos % (Auto) Lymph # [place] # Eos # Seg Neutrophils % 77.2 H Seg Neuts % (Manual) Lymphocytes % (Manual) Monocytes % (Manual) Eosinophils % (Manual) Seg Neutrophils # 9.6 H Seg Neutrophils # Man Lymphocytes # (Manual) Monocytes # (Manual) Eosinophils # (Manual) PT INR POC ABG pH ABG pH POC ABG pCO2 POC ABG pO2 ABG pO2 ABG HCO3 ABG O2 Saturation ABG Base Excess ABG Hemoglobin Oxyhemoglobin Sodium Potassium Chloride Carbon Dioxide BUN Creatinine Glucose POC Glucose 125 H 144 H Lactic Acid Calcium Phosphorus Magnesium Total Bilirubin Direct Bilirubin AST ALT Alkaline Phosphatase Total Protein Albumin Lipase Urine WBC (Auto) U Epithel Cells (Auto) Urine Creatinine Hepatitis C Antibody Crossmatch 07/25/19 07/25/19 07/25/19 04:09 05:12 05:29 WBC RBC Hgb Hct MCHC RDW Plt Count Lymph % (Auto) [place] % (Auto) Eos % (Auto) Lymph # [place] # Eos # Seg Neutrophils % Seg Neuts % (Manual) Lymphocytes % (Manual) Monocytes % (Manual) Eosinophils % (Manual) Seg Neutrophils # Seg Neutrophils # Man Lymphocytes # (Manual) Monocytes # (Manual) Eosinophils # (Manual) PT INR POC ABG pH ABG pH POC ABG pCO2 POC ABG pO2 ABG pO2 65.7 L ABG HCO3 33.6 H ABG O2 Saturation 92.8 L ABG Base Excess 7.9 H ABG Hemoglobin 11.9 L Oxyhemoglobin 90.7 L Sodium Potassium 3.1 L Chloride Carbon Dioxide 34 H BUN Creatinine 0.6 L Glucose 159 H POC Glucose 168 H Lactic Acid Calcium 7.5 L Phosphorus Magnesium Total Bilirubin 1.30 H Direct Bilirubin AST ALT Alkaline Phosphatase Total Protein 4.8 L Albumin 1.4 L Lipase Urine WBC (Auto) U Epithel Cells (Auto) Urine Creatinine Hepatitis C Antibody Crossmatch 07/25/19 07/25/19 07/26/19 11:34 23:30 04:25 WBC RBC Hgb Hct MCHC RDW Plt Count Lymph % (Auto) [place] % (Auto) Eos % (Auto) Lymph # [place] # Eos # Seg Neutrophils % Seg Neuts % (Manual) Lymphocytes % (Manual) Monocytes % (Manual) Eosinophils % (Manual) Seg Neutrophils # Seg Neutrophils # Man Lymphocytes # (Manual) Monocytes # (Manual) Eosinophils # (Manual) PT INR POC ABG pH ABG pH POC ABG pCO2 POC ABG pO2 ABG pO2 101.9 H ABG HCO3 32.0 H ABG O2 Saturation ABG Base Excess 6.5 H ABG Hemoglobin 9.9 L Oxyhemoglobin Sodium Potassium Chloride Carbon Dioxide BUN Creatinine Glucose POC Glucose 124 H 126 H Lactic Acid Calcium Phosphorus Magnesium Total Bilirubin Direct Bilirubin AST ALT Alkaline Phosphatase Total Protein Albumin Lipase Urine WBC (Auto) U Epithel Cells (Auto) Urine Creatinine Hepatitis C Antibody Crossmatch 07/26/19 07/26/19 07/26/19 05:00 05:00 05:38 WBC 12.3 H RBC 3.11 L Hgb 9.2 L Hct 28.2 L MCHC RDW 15.4 H Plt Count Lymph % (Auto) [place] % (Auto) 7.8 H Eos % (Auto) Lymph # [place] # 1.0 H Eos # Seg Neutrophils % 73.0 H Seg Neuts % (Manual) Lymphocytes % (Manual) Monocytes % (Manual) Eosinophils % (Manual) Seg Neutrophils # 8.9 H Seg Neutrophils # Man Lymphocytes # (Manual) Monocytes # (Manual) Eosinophils # (Manual) PT INR POC ABG pH ABG pH POC ABG pCO2 POC ABG pO2 ABG pO2 ABG HCO3 ABG O2 Saturation ABG Base Excess ABG Hemoglobin Oxyhemoglobin Sodium Potassium Chloride Carbon Dioxide 32 H BUN Creatinine Glucose 135 H POC Glucose 145 H Lactic Acid Calcium 7.9 L Phosphorus Magnesium Total Bilirubin Direct Bilirubin AST ALT Alkaline Phosphatase Total Protein Albumin Lipase Urine WBC (Auto) U Epithel Cells (Auto) Urine Creatinine Hepatitis C Antibody Crossmatch 07/26/19 07/26/19 07/26/19 11:16 17:55 23:26 WBC RBC Hgb Hct MCHC RDW Plt Count Lymph % (Auto) [place] % (Auto) Eos % (Auto) Lymph # [place] # Eos # Seg Neutrophils % Seg Neuts % (Manual) Lymphocytes % (Manual) Monocytes % (Manual) Eosinophils % (Manual) Seg Neutrophils # Seg Neutrophils # Man Lymphocytes # (Manual) Monocytes # (Manual) Eosinophils # (Manual) PT INR POC ABG pH ABG pH POC ABG pCO2 POC ABG pO2 ABG pO2 ABG HCO3 ABG O2 Saturation ABG Base Excess ABG Hemoglobin Oxyhemoglobin Sodium Potassium Chloride Carbon Dioxide BUN Creatinine Glucose POC Glucose 140 H 123 H 128 H Lactic Acid Calcium Phosphorus Magnesium Total Bilirubin Direct Bilirubin AST ALT Alkaline Phosphatase Total Protein Albumin Lipase Urine WBC (Auto) U Epithel Cells (Auto) Urine Creatinine Hepatitis C Antibody Crossmatch 07/27/19 07/27/19 07/27/19 05:29 05:40 05:40 WBC 13.2 H RBC 3.26 L Hgb 9.6 L Hct 29.5 L MCHC RDW Plt Count Lymph % (Auto) [place] % (Auto) Eos % (Auto) Lymph # [place] # 0.9 H Eos # Seg Neutrophils % 73.6 H Seg Neuts % (Manual) Lymphocytes % (Manual) Monocytes % (Manual) Eosinophils % (Manual) Seg Neutrophils # 9.7 H Seg Neutrophils # Man Lymphocytes # (Manual) Monocytes # (Manual) Eosinophils # (Manual) PT INR POC ABG pH ABG pH POC ABG pCO2 POC ABG pO2 ABG pO2 ABG HCO3 ABG O2 Saturation ABG Base Excess ABG Hemoglobin Oxyhemoglobin Sodium Potassium Chloride Carbon Dioxide BUN Creatinine 0.6 L Glucose 136 H POC Glucose 143 H Lactic Acid Calcium 8.2 L Phosphorus Magnesium Total Bilirubin Direct Bilirubin AST ALT Alkaline Phosphatase Total Protein Albumin Lipase Urine WBC (Auto) U Epithel Cells (Auto) Urine Creatinine Hepatitis C Antibody Crossmatch 07/27/19 07/27/19 07/27/19 06:29 12:32 17:24 WBC RBC Hgb Hct MCHC RDW Plt Count Lymph % (Auto) [place] % (Auto) Eos % (Auto) Lymph # [place] # Eos # Seg Neutrophils % Seg Neuts % (Manual) Lymphocytes % (Manual) Monocytes % (Manual) Eosinophils % (Manual) Seg Neutrophils # Seg Neutrophils # Man Lymphocytes # (Manual) Monocytes # (Manual) Eosinophils # (Manual) PT INR POC ABG pH 7.460 H ABG pH POC ABG pCO2 POC ABG pO2 60 L ABG pO2 ABG HCO3 ABG O2 Saturation ABG Base Excess ABG Hemoglobin Oxyhemoglobin Sodium Potassium Chloride Carbon Dioxide BUN Creatinine Glucose POC Glucose 139 H 126 H Lactic Acid Calcium Phosphorus Magnesium Total Bilirubin Direct Bilirubin AST ALT Alkaline Phosphatase Total Protein Albumin Lipase Urine WBC (Auto) U Epithel Cells (Auto) Urine Creatinine Hepatitis C Antibody Crossmatch 07/28/19 07/28/19 07/28/19 00:00 05:42 11:37 WBC RBC Hgb Hct MCHC RDW Plt Count Lymph % (Auto) [place] % (Auto) Eos % (Auto) Lymph # [place] # Eos # Seg Neutrophils % Seg Neuts % (Manual) Lymphocytes % (Manual) Monocytes % (Manual) Eosinophils % (Manual) Seg Neutrophils # Seg Neutrophils # Man Lymphocytes # (Manual) Monocytes # (Manual) Eosinophils # (Manual) PT INR POC ABG pH ABG pH POC ABG pCO2 POC ABG pO2 ABG pO2 ABG HCO3 ABG O2 Saturation ABG Base Excess ABG Hemoglobin Oxyhemoglobin Sodium Potassium Chloride Carbon Dioxide BUN Creatinine Glucose POC Glucose 120 H 114 H 111 H Lactic Acid Calcium Phosphorus Magnesium Total Bilirubin Direct Bilirubin AST ALT Alkaline Phosphatase Total Protein Albumin Lipase Urine WBC (Auto) U Epithel Cells (Auto) Urine Creatinine Hepatitis C Antibody Crossmatch 07/28/19 07/28/19 07/28/19 11:50 11:50 23:49 WBC 22.7 H RBC 3.63 L Hgb Hct MCHC RDW Plt Count 520 H Lymph % (Auto) [place] % (Auto) Eos % (Auto) Lymph # [place] # Eos # Seg Neutrophils % Seg Neuts % (Manual) Lymphocytes % (Manual) Monocytes % (Manual) Eosinophils % (Manual) Seg Neutrophils # Seg Neutrophils # Man Lymphocytes # (Manual) Monocytes # (Manual) Eosinophils # (Manual) PT INR POC ABG pH ABG pH POC ABG pCO2 POC ABG pO2 ABG pO2 ABG HCO3 ABG O2 Saturation ABG Base Excess ABG Hemoglobin Oxyhemoglobin Sodium 134 L Potassium 5.6 H D Chloride 96.9 L Carbon Dioxide BUN Creatinine Glucose 121 H POC Glucose 129 H Lactic Acid Calcium Phosphorus Magnesium Total Bilirubin Direct Bilirubin AST ALT Alkaline Phosphatase Total Protein Albumin Lipase Urine WBC (Auto) U Epithel Cells (Auto) Urine Creatinine Hepatitis C Antibody Crossmatch 07/28/19 07/29/19 07/29/19 Unknown 03:50 05:13 WBC RBC Hgb Hct MCHC RDW Plt Count Lymph % (Auto) [place] % (Auto) Eos % (Auto) Lymph # [place] # Eos # Seg Neutrophils % Seg Neuts % (Manual) Lymphocytes % (Manual) Monocytes % (Manual) Eosinophils % (Manual) Seg Neutrophils # Seg Neutrophils # Man Lymphocytes # (Manual) Monocytes # (Manual) Eosinophils # (Manual) PT INR POC ABG pH ABG pH 7.498 H 7.453 H POC ABG pCO2 POC ABG pO2 ABG pO2 59.8 L ABG HCO3 29.0 H ABG O2 Saturation 94.1 L ABG Base Excess 4.6 H ABG Hemoglobin 9.1 L Oxyhemoglobin 91.5 L Sodium Potassium Chloride Carbon Dioxide BUN Creatinine Glucose POC Glucose 132 H Lactic Acid Calcium Phosphorus Magnesium Total Bilirubin Direct Bilirubin AST ALT Alkaline Phosphatase Total Protein Albumin Lipase Urine WBC (Auto) U Epithel Cells (Auto) Urine Creatinine Hepatitis C Antibody Crossmatch 07/29/19 07/29/19 07/29/19 06:00 06:00 11:56 WBC 12.3 H RBC 3.02 L Hgb 9.1 L Hct 26.7 L D MCHC RDW Plt Count 475 H Lymph % (Auto) [place] % (Auto) 11.0 H Eos % (Auto) Lymph # [place] # 1.4 H Eos # 0.5 H Seg Neutrophils % Seg Neuts % (Manual) Lymphocytes % (Manual) Monocytes % (Manual) Eosinophils % (Manual) Seg Neutrophils # Seg Neutrophils # Man Lymphocytes # (Manual) Monocytes # (Manual) Eosinophils # (Manual) PT INR POC ABG pH ABG pH POC ABG pCO2 POC ABG pO2 ABG pO2 ABG HCO3 ABG O2 Saturation ABG Base Excess ABG Hemoglobin Oxyhemoglobin Sodium 136 L Potassium Chloride 97.5 L Carbon Dioxide BUN 19 H Creatinine Glucose 136 H POC Glucose 139 H Lactic Acid Calcium Phosphorus Magnesium Total Bilirubin Direct Bilirubin AST ALT Alkaline Phosphatase Total Protein Albumin Lipase Urine WBC (Auto) U Epithel Cells (Auto) Urine Creatinine Hepatitis C Antibody Crossmatch 07/29/19 07/29/19 07/30/19 17:38 23:30 05:00 WBC 11.2 H RBC 3.05 L Hgb 9.1 L Hct 27.4 L MCHC RDW Plt Count 576 H Lymph % (Auto) [place] % (Auto) 12.5 H Eos % (Auto) 5.2 H Lymph # [place] # 1.4 H Eos # 0.6 H Seg Neutrophils % Seg Neuts % (Manual) Lymphocytes % (Manual) Monocytes % (Manual) Eosinophils % (Manual) Seg Neutrophils # Seg Neutrophils # Man Lymphocytes # (Manual) Monocytes # (Manual) Eosinophils # (Manual) PT INR POC ABG pH ABG pH POC ABG pCO2 POC ABG pO2 ABG pO2 ABG HCO3 ABG O2 Saturation ABG Base Excess ABG Hemoglobin Oxyhemoglobin Sodium Potassium Chloride Carbon Dioxide BUN Creatinine Glucose POC Glucose 158 H 114 H Lactic Acid Calcium Phosphorus Magnesium Total Bilirubin Direct Bilirubin AST ALT Alkaline Phosphatase Total Protein Albumin Lipase Urine WBC (Auto) U Epithel Cells (Auto) Urine Creatinine Hepatitis C Antibody Crossmatch 07/30/19 07/30/19 07/30/19 05:00 05:37 12:32 WBC RBC Hgb Hct MCHC RDW Plt Count Lymph % (Auto) [place] % (Auto) Eos % (Auto) Lymph # [place] # Eos # Seg Neutrophils % Seg Neuts % (Manual) Lymphocytes % (Manual) Monocytes % (Manual) Eosinophils % (Manual) Seg Neutrophils # Seg Neutrophils # Man Lymphocytes # (Manual) Monocytes # (Manual) Eosinophils # (Manual) PT INR POC ABG pH ABG pH POC ABG pCO2 POC ABG pO2 ABG pO2 ABG HCO3 ABG O2 Saturation ABG Base Excess ABG Hemoglobin Oxyhemoglobin Sodium 136 L Potassium Chloride 97.1 L Carbon Dioxide BUN 21 H Creatinine Glucose 131 H POC Glucose 128 H 138 H Lactic Acid Calcium Phosphorus Magnesium Total Bilirubin Direct Bilirubin AST ALT Alkaline Phosphatase Total Protein Albumin Lipase Urine WBC (Auto) U Epithel Cells (Auto) Urine Creatinine Hepatitis C Antibody Crossmatch 07/30/19 07/30/19 07/30/19 13:53 20:48 23:54 WBC RBC Hgb Hct MCHC RDW Plt Count Lymph % (Auto) [place] % (Auto) Eos % (Auto) Lymph # [place] # Eos # Seg Neutrophils % Seg Neuts % (Manual) Lymphocytes % (Manual) Monocytes % (Manual) Eosinophils % (Manual) Seg Neutrophils # Seg Neutrophils # Man Lymphocytes # (Manual) Monocytes # (Manual) Eosinophils # (Manual) PT INR POC ABG pH ABG pH POC ABG pCO2 POC ABG pO2 ABG pO2 122.4 H ABG HCO3 ABG O2 Saturation ABG Base Excess -2.4 L ABG Hemoglobin 9.4 L Oxyhemoglobin Sodium Potassium Chloride Carbon Dioxide BUN Creatinine Glucose POC Glucose 162 H Lactic Acid Calcium Phosphorus Magnesium Total Bilirubin Direct Bilirubin AST ALT Alkaline Phosphatase Total Protein Albumin Lipase Urine WBC (Auto) U Epithel Cells (Auto) Urine Creatinine Hepatitis C Antibody Crossmatch See Detail 07/31/19 07/31/19 07/31/19 05:16 09:45 09:45 WBC 12.1 H RBC 3.26 L Hgb 10.0 L Hct 28.9 L MCHC 35 H RDW Plt Count 566 H Lymph % (Auto) 8.4 L [place] % (Auto) Eos % (Auto) Lymph # 1.0 L [place] # Eos # Seg Neutrophils % 85.0 H Seg Neuts % (Manual) Lymphocytes % (Manual) Monocytes % (Manual) Eosinophils % (Manual) Seg Neutrophils # 10.3 H Seg Neutrophils # Man Lymphocytes # (Manual) Monocytes # (Manual) Eosinophils # (Manual) PT INR POC ABG pH ABG pH POC ABG pCO2 POC ABG pO2 ABG pO2 ABG HCO3 ABG O2 Saturation ABG Base Excess ABG Hemoglobin Oxyhemoglobin Sodium Potassium Chloride Carbon Dioxide BUN 23 H Creatinine Glucose 165 H POC Glucose 221 H Lactic Acid Calcium Phosphorus Magnesium Total Bilirubin Direct Bilirubin AST ALT Alkaline Phosphatase Total Protein Albumin Lipase Urine WBC (Auto) U Epithel Cells (Auto) Urine Creatinine Hepatitis C Antibody Crossmatch 07/31/19 07/31/19 08/01/19 13:44 Unknown 08:30 WBC RBC 3.37 L Hgb Hct 29.9 L MCHC 35 H RDW Plt Count 606 H Lymph % (Auto) [place] % (Auto) Eos % (Auto) Lymph # [place] # Eos # Seg Neutrophils % Seg Neuts % (Manual) Lymphocytes % (Manual) Monocytes % (Manual) Eosinophils % (Manual) Seg Neutrophils # Seg Neutrophils # Man Lymphocytes # (Manual) Monocytes # (Manual) Eosinophils # (Manual) PT INR POC ABG pH ABG pH POC ABG pCO2 POC ABG pO2 ABG pO2 128.9 H ABG HCO3 ABG O2 Saturation ABG Base Excess -2.1 L ABG Hemoglobin 11.3 L Oxyhemoglobin Sodium Potassium Chloride Carbon Dioxide BUN Creatinine Glucose POC Glucose 148 H Lactic Acid Calcium Phosphorus Magnesium Total Bilirubin Direct Bilirubin AST ALT Alkaline Phosphatase Total Protein Albumin Lipase Urine WBC (Auto) U Epithel Cells (Auto) Urine Creatinine Hepatitis C Antibody Crossmatch 08/31/19 08:30 WBC RBC Hgb Hct MCHC RDW Plt Count Lymph % (Auto) [place] % (Auto) Eos % (Auto) Lymph # [place] # Eos # Seg Neutrophils % Seg Neuts % (Manual) Lymphocytes % (Manual) Monocytes % (Manual) Eosinophils % (Manual) Seg Neutrophils # Seg Neutrophils # Man Lymphocytes # (Manual) Monocytes # (Manual) Eosinophils # (Manual) PT INR POC ABG pH ABG pH POC ABG pCO2 POC ABG pO2 ABG pO2 ABG HCO3 ABG O2 Saturation ABG Base Excess ABG Hemoglobin Oxyhemoglobin Sodium Potassium Chloride Carbon Dioxide BUN 23 H Creatinine Glucose 104 H POC Glucose Lactic Acid Calcium Phosphorus Magnesium Total Bilirubin Direct Bilirubin AST ALT Alkaline Phosphatase Total Protein Albumin Lipase Urine WBC (Auto) U Epithel Cells (Auto) Urine Creatinine Hepatitis C Antibody Crossmatch
--- NOTE | 2019-08-02 14:35 | Progress Note ---
Subjective Date of service: 08/02/19 Principal diagnosis: Acute respiratory failure Interval history: S/P LEFT NEPHRECTOMY - 07-30-19 (WILL/KARNE) This is a 44 yo F With past medical history of bipolar disorder, who presents to [facility] with abdominal pain fever and right foot pain. She was seen on 06/28 in ER for insect bite on her right big toe, for which she was treated with 10 days of antibiotics with Augmentin. However patient returned to ER c/o intermittent fevers, body aches, weakness and nausea and malaise generalized abdominal pain for worsening redness of her right foot. Labs showed elevated WBC > 11.7, along with signs of UTI with UA showing > 182 WBC/HPF. CT A/P also showed L perinephric stranding. Pt also showed signs of acute renal failure with BUN/Cr at 46/2.2mg/dl. Multiple complaints but found to be hypotensive requiring vasopressor therapypt is admitted for sepsis Repeat CT---left kidney abscess off pressors mother at bedside/hydronephrosis during pregancy in the past (?side) pt alert abd -- left flank incision -clean- MIRTHA intact - removed gordon---clear urine a/p S/P LEFT NEPHRECTOMY - 07-30-19 (WILL/KAREN) - ABSCESS Hepatitis C Bipolar D/O CONTINUE PRESENT CARE on oral pain meds dilaudid 1mg now for breakthrought ok for regular diet Objective - Constitutional Vitals: Vital Signs - 12hr 08/02/19 08/02/19 08/02/19 05:19 08:10 10:27 Temperature 98.7 F 97.6 F Pulse Rate 75 75 Respiratory 18 20 20 Rate Blood Pressure 147/96 Blood Pressure 123/84 [Right] O2 Sat by Pulse 96 100 Oximetry 08/02/19 11:22 Temperature 98.2 F Pulse Rate 86 Respiratory 20 Rate Blood Pressure 116/84 Blood Pressure [Right] O2 Sat by Pulse 99 Oximetry - Labs CBC & Chem 7: 08/01/19 08:30 08/01/19 08:30 Medications & Allergies - Medications Allergies/Adverse Reactions: Allergies latex Allergy (Verified 06/28/19 17:11) Anaphylaxis tramadol [From Ultram] Allergy (Verified 06/28/19 17:10) Unknown haloperidol [From Haldol] Adverse Reaction (Verified 07/17/19 05:55) Shortness of Breath agitation/combative ketorolac [From Toradol] Adverse Reaction (Verified 06/28/19 17:10) Seizure prochlorperazine [From Compazine] Adverse Reaction (Verified 06/28/19 17:11) Unknown Home Medications: Home Medications Medication Instructions Recorded Confirmed Last Taken Type No Known Home Medications [No 07/16/19 07/16/19 Unknown History Reported Home Medications] Active Medications: Generic Name Dose Route Start Last Admin Trade Name Freq PRN Reason Stop Dose Admin Acetaminophen 650 mg 07/16/19 05:36 07/31/19 20:47 Tylenol PO 650 mg Q4H PRN Administration Pain MILD(1-3)/Fever >100.5/[place] Acetaminophen 650 mg 07/30/19 17:44 Tylenol DC Q4H PRN Pain, Mild (1-3) Albuterol 2.5 mg 07/16/19 22:48 07/16/19 23:01 Proventil IH 2.5 mg Q4HRT PRN Administration Shortness Of Breath Lipase/Protease/Amylase 1 each 07/18/19 14:[address] 10,500 Unit FEEDTUBE PRN PRN For Clogged Feeding Tube Dextrose 50 ml 07/17/19 03:17 07/17/19 05:30 D50w (25gm) Syringe IV 50 ml PRN PRN Administration Hypoglycemia Enoxaparin Sodium 40 mg 07/31/19 11:00 08/02/19 09:56 Lovenox SUB-Q 40 mg QDAY@1000 KASIE Administration Famotidine 20 mg 07/20/19 10:00 08/02/19 09:56 Pepcid PO 20 mg BID KASIE Administration Hydrochlorothiazide 25 mg 07/23/19 10:00 08/02/19 09:57 Hctz PO 25 mg QDAY KASIE Administration Hydromorphone HCl 2 mg 08/01/19 10:00 08/02/19 09:57 Dilaudid IV 2 mg Q3H PRN Administration Pain , Severe (7-10) Hydromorphone HCl 1 mg 08/01/19 14:38 08/01/19 14:46 Dilaudid IV 1 mg NOW PRN Administration Pain , Severe (7-10) Hydrophilic Ointment 1 applic 07/17/19 03:18 Vaseline Lip Therapy TP Q2HR PRN Dry Lips Ceftriaxone Sodium 2 gm in 100 mls @ 200 mls/hr 07/20/19 13:00 08/02/19 09:55 Rocephin/Ns 2 Gm/100 Ml IV 200 mls/hr Q24HR KASIE Administration Protocol Multi-Ingred Cream/Lotion/Oil/Oint 1 applic 07/17/19 03:18 Artificial Tears Ophth Oint OU Q4HR PRN Dry Eye(s) Nicotine 14 mg 07/16/19 10:00 08/02/19 09:56 Habitrol TD 14 mg QDAY KASIE Administration Ondansetron HCl 4 mg 07/16/19 05:36 08/02/19 10:08 Zofran IV 4 mg Q8H PRN Administration Nausea And Vomiting Oxycodone/Acetaminophen 2 tab 08/01/19 10:00 08/02/19 13:17 Percocet 5/325 PO 2 tab Q6H PRN Administration Pain, Moderate (4-6) Quetiapine Fumarate 50 mg 07/28/19 11:00 08/02/19 09:56 Seroquel PO Not Given BID KASIE Simple Syrup 15 ml 07/18/19 14:34 Simple Syrup FEEDTUBE PRN PRN Hypoglycemia Simple Syrup 30 ml 07/18/19 14:34 Simple Syrup FEEDTUBE PRN PRN Hypoglycemia Sodium Bicarbonate 325 mg 07/18/19 14:34 Sodium Bicarbonate FEEDTUBE PRN PRN For Clogged Feeding Tube Sodium Chloride 10 ml 07/16/19 10:00 08/02/19 09:57 Sodium Chloride Flush Syringe 10 Ml IV 10 ml BID KASIE Administration Sodium Chloride 10 ml 07/16/19 05:36 Sodium Chloride Flush Syringe 10 Ml IV PRN PRN LINE FLUSH Sodium Polystyrene Sulfonate 15 gm 07/28/19 22:14 07/28/19 22:35 Kionex PO 15 gm Q6H PRN Administration Hyperkalemia
--- NOTE | 2019-08-02 14:49 | Progress Note ---
Assessment and Plan - Patient Problems (1) Acute renal failure Current Visit: Yes Status: Acute Plan to address problem: Kidney function has improved. Follow-up electrolytes and renal function. pt with excellent urine output. CT showing multiple abscesses, now s/p L nephrectomy (2) Fluid overload Current Visit: Yes Status: Acute Plan to address problem: Follow up volume status off bumex. electrolytes and renal function (3) Acute pyelonephritis Current Visit: Yes Status: Acute Plan to address problem: Continue antibiotics.CT showing multiple L kidney abscesses, now s/p L nephrectomy (4) Hypokalemia Current Visit: Yes Status: Acute Plan to address problem: K normalized Subjective Date of service: 08/02/19 Principal diagnosis: Acute respiratory failure Interval history: Pt s/p L nephrectomy, awake, alert, c/o pain at the surgical site. Objective - Vital Signs Vital signs: Vital Signs - 12hr 08/02/19 08/02/19 08/02/19 05:19 08:10 10:27 Temperature 98.7 F 97.6 F Pulse Rate 75 75 Respiratory 18 20 20 Rate Blood Pressure 147/96 Blood Pressure 123/84 [Right] O2 Sat by Pulse 96 100 Oximetry 08/02/19 11:22 Temperature 98.2 F Pulse Rate 86 Respiratory 20 Rate Blood Pressure 116/84 Blood Pressure [Right] O2 Sat by Pulse 99 Oximetry - General Appearance General appearance: well-developed, well-nourished, appears stated age EENT: ATNC, PERRL, mucous membranes moist Neck: no JVD Respiratory: Present: Clear to Ascultation Cardiology: regular, S1S2 Gastrointestinal: normoactive bowel sounds Integumentary: no rash, other (no edema ) Neurologic: no focal deficit, alert and oriented x3, strength 5/5, CN 3-12 intact Psychiatric: mood/affect appropriate, cooperative - Lab 08/01/19 08:30 08/01/19 08:30 Most recent lab results ABG pH 7.402 pH Units (7.350-7.450) 07/31/19 Unknown ABG pCO2 36.6 mm Hg 07/31/19 Unknown ABG pO2 128.9 mm Hg (80.0-90.0) H 07/31/19 Unknown ABG HCO3 22.3 mmol/L (20.0-26.0) 07/31/19 Unknown ABG O2 Saturation 98.5 % (95.0-99.0) 07/31/19 Unknown Calcium 8.9 mg/dL (8.4-10.2) 08/01/19 08:30 Phosphorus 4.50 mg/dL (2.5-4.5) D 07/28/19 11:50 Magnesium 2.00 mg/dL (1.7-2.3) 07/28/19 11:50 76.6 mg/dL (0.1-20.0) H 07/16/19 14:30 39 mmol/L 07/16/19 14:30 Medications & Allergies - Medications Allergies/Adverse Reactions: Allergies latex Allergy (Verified 06/28/19 17:11) Anaphylaxis tramadol [From Ultram] Allergy (Verified 06/28/19 17:10) Unknown haloperidol [From Haldol] Adverse Reaction (Verified 07/17/19 05:55) Shortness of Breath agitation/combative ketorolac [From Toradol] Adverse Reaction (Verified 06/28/19 17:10) Seizure prochlorperazine [From Compazine] Adverse Reaction (Verified 06/28/19 17:11) Unknown Home Medications: Home Medications Medication Instructions Recorded Confirmed Last Taken Type No Known Home Medications [No 07/16/19 07/16/19 Unknown History Reported Home Medications] Active Medications: Generic Name Dose Route Start Last Admin Trade Name Freq PRN Reason Stop Dose Admin Acetaminophen 650 mg 07/16/19 05:36 07/31/19 20:47 Tylenol PO 650 mg Q4H PRN Administration Pain MILD(1-3)/Fever >100.5/[place] Acetaminophen 650 mg 07/30/19 17:44 Tylenol MO Q4H PRN Pain, Mild (1-3) Albuterol 2.5 mg 07/16/19 22:48 07/16/19 23:01 Proventil IH 2.5 mg Q4HRT PRN Administration Shortness Of Breath Lipase/Protease/Amylase 1 each 07/18/19 14:34 Pancrenicolás Thomas 10,500 Unit FEEDTUBE PRN PRN For Clogged Feeding Tube Dextrose 50 ml 07/17/19 03:17 07/17/19 05:30 D50w (25gm) Syringe IV 50 ml PRN PRN Administration Hypoglycemia Enoxaparin Sodium 40 mg 07/31/19 11:00 08/02/19 09:56 Lovenox SUB-Q 40 mg QDAY@1000 KASIE Administration Famotidine 20 mg 07/20/19 10:00 08/02/19 09:56 Pepcid PO 20 mg BID KASIE Administration Hydrochlorothiazide 25 mg 07/23/19 10:00 08/02/19 09:57 Hctz PO 25 mg QDAY KASIE Administration Hydromorphone HCl 2 mg 08/01/19 10:00 08/02/19 09:57 Dilaudid IV 2 mg Q3H PRN Administration Pain , Severe (7-10) Hydromorphone HCl 1 mg 08/01/19 14:38 08/01/19 14:46 Dilaudid IV 1 mg NOW PRN Administration Pain , Severe (7-10) Hydrophilic Ointment 1 applic 07/17/19 03:18 Vaseline Lip Therapy TP Q2HR PRN Dry Lips Ceftriaxone Sodium 2 gm in 100 mls @ 200 mls/hr 07/20/19 13:00 08/02/19 09:55 Rocephin/Ns 2 Gm/100 Ml IV 200 mls/hr Q24HR KASIE Administration Protocol Multi-Ingred Cream/Lotion/Oil/Oint 1 applic 07/17/19 03:18 Artificial Tears Ophth Oint OU Q4HR PRN Dry Eye(s) Nicotine 14 mg 07/16/19 10:00 08/02/19 09:56 Habitrol TD 14 mg QDAY KASIE Administration Ondansetron HCl 4 mg 07/16/19 05:36 08/02/19 10:08 Zofran IV 4 mg Q8H PRN Administration Nausea And Vomiting Oxycodone/Acetaminophen 2 tab 08/01/19 10:00 08/02/19 13:17 Percocet 5/325 PO 2 tab Q6H PRN Administration Pain, Moderate (4-6) Quetiapine Fumarate 50 mg 07/28/19 11:00 08/02/19 09:56 Seroquel PO Not Given BID KASIE Simple Syrup 15 ml 07/18/19 14:34 Simple Syrup FEEDTUBE PRN PRN Hypoglycemia Simple Syrup 30 ml 07/18/19 14:34 Simple Syrup FEEDTUBE PRN PRN Hypoglycemia Sodium Bicarbonate 325 mg 07/18/19 14:34 Sodium Bicarbonate FEEDTUBE PRN PRN For Clogged Feeding Tube Sodium Chloride 10 ml 07/16/19 10:00 08/02/19 09:57 Sodium Chloride Flush Syringe 10 Ml IV 10 ml BID KASIE Administration Sodium Chloride 10 ml 07/16/19 05:36 Sodium Chloride Flush Syringe 10 Ml IV PRN PRN LINE FLUSH Sodium Polystyrene Sulfonate 15 gm 07/28/19 22:14 07/28/19 22:35 Kionex PO 15 gm Q6H PRN Administration Hyperkalemia
[2019-08-02] MEDS ORDERED: DILAUDID IV ONE (15:06)
[2019-08-03] MEDS: PERCOCET 5/325 PO PRN ×3 (02:18→16:39)
[2019-08-03] MEDS: DILAUDID IV PRN ×3 (05:25→20:49)
[2019-08-03 07:24] LABS: Basophils # (Auto) 0.1 K/mm3 (0.0-0.1); Eosinophils # (Auto) 0.9 K/mm3 (0.0-0.4); Eosinophils % (Auto) 7.2 % (0.0-4.3); Hematocrit 37.2 % (30.3-42.9); Hemoglobin 12.7 gm/dl (10.1-14.3); Lymphocytes # (Auto) 2.8 K/mm3 (1.2-5.4); Lymphocytes % (Auto) 21.7 % (13.4-35.0); Mean Corpuscular HGB Conc 34 % (30-34); Mean Corpuscular Volume 88 fl (79-97); Monocytes # (Auto) 1.5 K/mm3 (0.0-0.8); Monocytes % (Auto) 11.2 % (0.0-7.3); Platelet Count 764 K/mm3 (140-440); Red Blood Count 4.21 M/mm3 (3.65-5.03); Red Cell Distribution Width 14.4 % (13.2-15.2)
[2019-08-03 07:48] LABS: Alanine Aminotransferase 47 units/L (7-56); Albumin 3.4 g/dL (3.9-5); BUN/Creatinine Ratio 29; Blood Urea Nitrogen 23 mg/dL (7-17); Hemolysis Index 0
--- NOTE | 2019-08-03 08:04 | Progress Note ---
Assessment and Plan - Patient Problems (1) Acute renal failure Current Visit: Yes Status: Acute Plan to address problem: Kidney function has normalized. pt with excellent urine output. CT showing multiple abscesses, now s/p L nephrectomy. will sign off for now. (2) Fluid overload Current Visit: Yes Status: Acute Plan to address problem: Follow up volume status off bumex. electrolytes and renal function (3) Acute pyelonephritis Current Visit: Yes Status: Acute Plan to address problem: Continue antibiotics.CT showing multiple L kidney abscesses, now s/p L nephrectomy (4) Hypokalemia Current Visit: Yes Status: Acute Plan to address problem: K normalized Subjective Date of service: 08/03/19 Principal diagnosis: Acute respiratory failure Interval history: Pt s/p L nephrectomy, awake, alert, reports improved pain at the surgical site. Objective - Vital Signs Vital signs: Vital Signs - 12hr 08/02/19 08/02/19 08/02/19 21:13 21:33 23:37 Temperature 98.3 F Pulse Rate 95 H Respiratory 18 18 Rate Blood Pressure 116/79 O2 Sat by Pulse 99 98 Oximetry 08/03/19 08/03/19 08/03/19 00:40 02:18 03:18 Temperature 97.6 F Pulse Rate 89 Respiratory 17 18 20 Rate Blood Pressure 129/92 O2 Sat by Pulse 99 Oximetry 08/03/19 08/03/19 08/03/19 04:55 05:25 05:55 Temperature 98.4 F Pulse Rate 86 Respiratory 18 20 18 Rate Blood Pressure 123/88 O2 Sat by Pulse 99 Oximetry 08/03/19 07:10 Temperature 97.0 F L Pulse Rate 82 Respiratory 16 Rate Blood Pressure 118/88 O2 Sat by Pulse 98 Oximetry - General Appearance General appearance: well-developed, well-nourished, appears stated age EENT: ATNC, PERRL, mucous membranes moist Neck: no JVD Respiratory: Present: Clear to Ascultation Cardiology: regular, S1S2 Gastrointestinal: normoactive bowel sounds Integumentary: no rash, other (no edema ) Neurologic: no focal deficit, alert and oriented x3, strength 5/5, CN 3-12 intact Psychiatric: mood/affect appropriate, cooperative - Lab 08/03/19 07:00 08/03/19 07:00 Most recent lab results ABG pH 7.402 pH Units (7.350-7.450) 07/31/19 Unknown ABG pCO2 36.6 mm Hg 07/31/19 Unknown ABG pO2 128.9 mm Hg (80.0-90.0) H 07/31/19 Unknown ABG HCO3 22.3 mmol/L (20.0-26.0) 07/31/19 Unknown ABG O2 Saturation 98.5 % (95.0-99.0) 07/31/19 Unknown Calcium 10.0 mg/dL (8.4-10.2) 08/03/19 07:00 Phosphorus 4.50 mg/dL (2.5-4.5) D 07/28/19 11:50 Magnesium 2.00 mg/dL (1.7-2.3) 07/28/19 11:50 76.6 mg/dL (0.1-20.0) H 07/16/19 14:30 39 mmol/L 07/16/19 14:30 Medications & Allergies - Medications Allergies/Adverse Reactions: Allergies latex Allergy (Verified 06/28/19 17:11) Anaphylaxis tramadol [From Ultram] Allergy (Verified 06/28/19 17:10) Unknown haloperidol [From Haldol] Adverse Reaction (Verified 07/17/19 05:55) Shortness of Breath agitation/combative ketorolac [From Toradol] Adverse Reaction (Verified 06/28/19 17:10) Seizure prochlorperazine [From Compazine] Adverse Reaction (Verified 06/28/19 17:11) Unknown Home Medications: Home Medications Medication Instructions Recorded Confirmed Last Taken Type No Known Home Medications [No 07/16/19 07/16/19 Unknown History Reported Home Medications] Active Medications: Generic Name Dose Route Start Last Admin Trade Name Freq PRN Reason Stop Dose Admin Acetaminophen 650 mg 07/16/19 05:36 07/31/19 20:47 Tylenol PO 650 mg Q4H PRN Administration Pain MILD(1-3)/Fever >100.5/WHALEN Acetaminophen 650 mg 07/30/19 17:44 Tylenol W[place] Q4H PRN Pain, Mild (1-3) Albuterol 2.5 mg 07/16/19 22:48 07/16/19 23:01 Proventil IH 2.5 mg Q4HRT PRN Administration Shortness Of Breath Lipase/Protease/Amylase 1 each 07/18/19 14:34 Pancrenicolás Thomas 10,500 Unit FEEDTUBE PRN PRN For Clogged Feeding Tube Dextrose 50 ml 07/17/19 03:17 07/17/19 05:30 D50w (25gm) Syringe IV 50 ml PRN PRN Administration Hypoglycemia Enoxaparin Sodium 40 mg 07/31/19 11:00 08/02/19 09:56 Lovenox SUB-Q 40 mg QDAY@1000 KASIE Administration Famotidine 20 mg 07/20/19 10:00 08/02/19 21:32 Pepcid PO 20 mg BID KASIE Administration Hydrochlorothiazide 25 mg 07/23/19 10:00 08/02/19 09:57 Hctz PO 25 mg QDAY KASIE Administration Hydromorphone HCl 2 mg 08/01/19 10:00 08/02/19 09:57 Dilaudid IV 2 mg Q3H PRN Administration Pain , Severe (7-10) Hydromorphone HCl 1 mg 08/01/19 14:38 08/03/19 05:25 Dilaudid IV 1 mg NOW PRN Administration Pain , Severe (7-10) Hydrophilic Ointment 1 applic 07/17/19 03:18 Vaseline Lip Therapy TP Q2HR PRN Dry Lips Ceftriaxone Sodium 2 gm in 100 mls @ 200 mls/hr 07/20/19 13:00 08/02/19 09:55 Rocephin/Ns 2 Gm/100 Ml IV 200 mls/hr Q24HR KASIE Administration Protocol Multi-Ingred Cream/Lotion/Oil/Oint 1 applic 07/17/19 03:18 Artificial Tears Ophth Oint OU Q4HR PRN Dry Eye(s) Nicotine 14 mg 07/16/19 10:00 08/02/19 09:56 Habitrol TD 14 mg QDAY KASIE Administration Ondansetron HCl 4 mg 07/16/19 05:36 08/02/19 10:08 Zofran IV 4 mg Q8H PRN Administration Nausea And Vomiting Oxycodone/Acetaminophen 2 tab 08/01/19 10:00 08/03/19 02:18 Percocet 5/325 PO 2 tab Q6H PRN Administration Pain, Moderate (4-6) Quetiapine Fumarate 50 mg 07/28/19 11:00 09/01/19 21:36 Seroquel PO Not Given BID KASIE Simple Syrup 15 ml 07/18/19 14:34 Simple Syrup FEEDTUBE PRN PRN Hypoglycemia Simple Syrup 30 ml 07/18/19 14:34 Simple Syrup FEEDTUBE PRN PRN Hypoglycemia Sodium Bicarbonate 325 mg 07/18/19 14:34 Sodium Bicarbonate FEEDTUBE PRN PRN For Clogged Feeding Tube Sodium Chloride 10 ml 07/16/19 10:00 08/02/19 21:33 Sodium Chloride Flush Syringe 10 Ml IV 10 ml BID KASIE Administration Sodium Chloride 10 ml 07/16/19 05:36 Sodium Chloride Flush Syringe 10 Ml IV PRN PRN LINE FLUSH Sodium Polystyrene Sulfonate 15 gm 07/28/19 22:14 07/28/19 22:35 Kionex PO 15 gm Q6H PRN Administration Hyperkalemia
[2019-08-03] MEDS: ROCEPHIN/NS 2 GM/100 ML 2 GM/100 ML BAG IV SCH (10:12)
[2019-08-03] MEDS: LOVENOX SUB-Q SCH (10:12)
[2019-08-03] MEDS: HCTZ PO SCH (10:12)
[2019-08-03] MEDS: PEPCID PO SCH ×2 (10:12→21:01)
[2019-08-03] MEDS: HABITROL TD SCH (10:12)
[2019-08-03] MEDS: SODIUM CHLORIDE FLUSH SYRINGE 10 ML IV SCH ×2 (10:13→21:01)
[2019-08-03] MEDS: ZOFRAN IV PRN ×2 (11:37→20:55)
--- NOTE | 2019-08-03 13:01 | Progress Note ---
Assessment and Plan /Acute hypoxic respiratory failure; requiring intubation >96h - ARDS Likely from severe sepsis Required high FiO2 and PEEP to maintain oxygen saturation - trended down s/p bronch 07/28/19 - negative BAL s/p extubation 07/31/19 cont nebs, supplemntal O2 as needed / Severe sepsis with Septic shock and organ failure from left renal abscess/bacteremia/right foot cellulites with persistent fever Secondary to pyelonephritis with renal abscess and Escherichia coli bacteremia. weaned off pressor, Continue abx per ID, CTAP with contrast showed left renal abscess - s/p left nephrectomy 07/30 by Urologist Abx Stop date: 08/05/2019 /E.coli bacteremia, likely source from pyelonephritis and renal abscess Continue to treat with empiric antibiotic per ID recommendation till 08/05 - s/p left nephrectomy 07/30 by Urologist /Transaminitis - Could be from severe sepsis versus and underlying chronic hepatitis C - trending down LFTs, s/p HIDA scan showed normal study - hepatitis panel showed positive hepatitis C antibody - need further outpatient follow-up / Acute pyelonephritis with left renal abscess - Decreased leukocytosis. on iv abx, s/p left nephrectomy 07/30 / Cellulites of right foot, improved with abx /Acute renal failure due to ATN from severe sepsis Creatinine was 2.2 on admission monitor renal function, Cr now stable / Malnutrition s/p NG tube feedings. Nutrition following start on clear liquid diet /Electrolyte imbalance Hyponatremia -s/p free water with tube feeding, cont iv fluid Hypokalemia - continue to replete as needed and continue to monitor BMP Hypomagnesemia - replete as needed, continue to follow Consult PT - pending Brief history The patient is a 44-year-old female with bipolar disorder presented to the emergency room with right foot pain, abdominal pain and fevers. She previously presented to the emergency room on 06/28/2019 with right foot with redness and pain following a possible spider bite. She was given a prescription for oral Augmentin and was discharged home. Patient stated that she was compliant with Augmentin and also was soaking her right foot in Epsom salts. About 2-3 days prior to admission, she started developing fevers, nausea as well as worsening abdominal pain. She has presented to the emergency room and was hospitalized. She was noted to be septic,Started on empiric antibiotics. She decompensated on the floor and required intubation and transferred to ICU for further management on 07/17/2019. Also required pressors for septic shock, blood culture growing Escherichia coli bacteremia. S/p s/p left nephrectomy 07/30 by Urologist for left renal abscess. off pressor, s/p extubation 07/31/19. Cont post-op care, advance diet, PT/OT, complete abx Radiological data: CT abdomen/pelvis: 1. Mild nonspecific left-sided perinephric stranding in this patient with punctate bilateral nonobstructive nephrolithiasis. No asymmetric hydronephrosis or ureteral stone disease. 2. Complex cyst versus mass in the left ovary. Recommend nonemergent follow-up pelvic ultrasound. 3. Mild periportal edema could be related to aggressive hydration therapy. 4. Other incidental findings as outlined above on this limited noncontrast exam with mild motion artifact. Of note, there is a 5 mm nodule in the right middle lobe. Please see below recommendations. Abdomen ultrasound: 1. No gallstones, but the gallbladder wall is thickened and edematous. 2. Small bilateral pleural effusions. Hospitalist Physical General appearance: Present: no acute distress, - EENT Eyes: Present: PERRL, EOM intact - Neck Neck: Present: supple, normal ROM - Respiratory Respiratory effort: non labored Respiratory: bilateral: CTABL, no rhonchi, negative: rales, wheezing - Cardiovascular Rhythm: regular Heart Sounds: Present: S1 & S2 - Extremities Extremities: no ischemia, no edema Extremity abnormal: edema - Abdominal General gastrointestinal: soft, non-tender, non-distended, normal bowel sounds - Integumentary Integumentary: Present: clear, warm - Psychiatric Psychiatric: cooperative - Neurologic Neurologic: no focal deficit Subjective Date of service: 08/03/19 Principal diagnosis: Acute respiratory failure Interval history: Patient seen and examined afebrile, c/o back pain -but better On pureed diet, could not tolerate regular Mother at bedside - updated PT eval pending Objective - Constitutional Vitals: Vital Signs - 12hr 08/03/19 08/03/19 08/03/19 02:18 03:18 04:55 Temperature 98.4 F Pulse Rate 86 Respiratory 18 20 18 Rate Blood Pressure 123/88 O2 Sat by Pulse 99 Oximetry 08/03/19 08/03/19 08/03/19 05:25 05:55 07:10 Temperature 97.0 F L Pulse Rate 82 Respiratory 20 18 16 Rate Blood Pressure 118/88 O2 Sat by Pulse 98 Oximetry 08/03/19 08/03/19 09:31 11:04 Temperature 98.0 F Pulse Rate 94 H Respiratory 20 Rate Blood Pressure 133/96 O2 Sat by Pulse 97 99 Oximetry - Labs CBC & Chem 7: 08/03/19 07:00 08/03/19 07:00 Labs: Abnormal lab results 07/30/19 08/03/19 08/03/19 Range/Units 13:53 07:00 07:00 WBC 13.1 H (4.5-11.0) K/mm3 Plt Count 764 H (140-440) K/mm3 Hanson % (Auto) 11.2 H (0.0-7.3) % Eos % (Auto) 7.2 H (0.0-4.3) % Hanson # 1.5 H (0.0-0.8) K/mm3 Eos # 0.9 H (0.0-0.4) K/mm3 Sodium 135 L (137-145) mmol/L Chloride 95.8 L (98-107) mmol/L BUN 23 H (7-17) mg/dL Glucose 116 H (65-100) mg/dL AST 41 H (5-40) units/L Total Protein 8.6 H (6.3-8.2) g/dL Albumin 3.4 L (3.9-5) g/dL Crossmatch See Detail
[2019-08-03] MEDS ORDERED: ALUM-MAG HYDROX-SIMETH 200-200-20MG/5ML PO PRN (22:44)
[2019-08-04] MEDS: PERCOCET 5/325 PO PRN ×2 (00:01→08:04)
[2019-08-04] MEDS: DILAUDID IV PRN (04:19)
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
[2019-08-04] MEDS: HCTZ PO SCH (10:44)
[2019-08-04] MEDS: PEPCID PO SCH (10:44)
[2019-08-04] MEDS: HABITROL TD SCH (10:44)
[2019-08-04] MEDS: LOVENOX SUB-Q SCH (10:45)
[2019-08-04] MEDS: ROCEPHIN/NS 2 GM/100 ML 2 GM/100 ML BAG IV SCH (10:46)
[2019-08-04] MEDS: SODIUM CHLORIDE FLUSH SYRINGE 10 ML IV SCH (11:06)
--- NOTE | 2019-08-04 11:14 | Discharge Summary ---
Providers - Providers Date of Admission: 07/16/19 05:36 Date of discharge: 08/04/19 Attending physician: AINSLEY KEARNS 07/16/19 05:36 Consult to Physician [CONS] Routine Comment: Consulting Provider: CHETAN REED Physician Instructions: Reason For Exam: R foot infection 07/16/19 05:40 Consult to Physician [CONS] Routine Comment: Consulting Provider: MAYELIN ENRIQUEZ Physician Instructions: Reason For Exam: septic shock 07/16/19 05:44 Consult to Physician [CONS] Routine Comment: Consulting Provider: LACIE LUNA Physician Instructions: Reason For Exam: martha 07/17/19 03:18 Consult to Dietitian/Nutrition [CONS] Routine Physician Instructions: Reason For Exam: Reason for Consult: Evaluate nutritional intake 07/17/19 11:04 Consult to Physician [CONS] Routine Comment: Consulting Provider: JAKE JONES Physician Instructions: Reason For Exam: hyddronephrosis, complex UTI 07/17/19 11:06 Consult to Physician [CONS] Routine Comment: Consulting Provider: CESIA DICKINSON Physician Instructions: Reason For Exam: left ovarian complex cyst 07/18/19 11:36 Consult to Dietitian/Nutrition [CONS] Routine Physician Instructions: Reason For Exam: Reason for Consult: Write/Manage Tube Feeding 07/23/19 11:25 Consult to Physician [CONS] Routine Comment: Consulting Provider: LESLY PIKE Physician Instructions: Reason For Exam: possible cholecystitis 07/27/19 10:40 Physical Therapy Evaluation and Treat [CONS] Routine Comment: Ok to move even if dopplers are positive Reason For Exam: Mobility 07/30/19 11:36 PICC Line Insertion [Consult to PICC Line RN] [CONS] Stat Reason For Exam: IV access, D/C Triple lumen Type Line:: PICC 08/01/19 07:21 Speech Therapy Evaluation and Treat [CONS] Routine Reason For Exam: aspiration 08/01/19 07:22 Physical Therapy Evaluation and Treat [CONS] Routine Comment: Reason For Exam: placement 08/02/19 12:06 Consult to Mental Health [CONS] Routine Reason For Exam: bipolar disorder Place consult to:: mental health Notified:: yes Phone number called:: [phone] Time called:: 14:28 Comment:: will follow [facility] Hospitalization Condition: Fair Hospital course: The patient is a 44-year-old female with bipolar disorder presented to the emergency room with right foot pain, abdominal pain and fevers. She previously presented to the emergency room on 06/28/2019 with right foot with redness and pain following a possible spider bite. She was given a prescription for oral Augmentin and was discharged home. Patient stated that she was compliant with Augmentin and also was soaking her right foot in Epsom salts. About 2-3 days prior to admission, she started developing fevers, nausea as well as worsening abdominal pain. She has presented to the emergency room and was hospitalized. She was noted to be septic,Started on empiric antibiotics. She decompensated on the floor and required intubation and transferred to ICU for further management on 07/17/2019. Also required pressors for septic shock, blood culture growing Escherichia coli bacteremia. S/p s/p left nephrectomy 07/30 by Urologist for left renal abscess. off pressor, s/p extubation 07/31/19. Cont post-op care, advance diet, PT/OT, complete abx Radiological data: CT abdomen/pelvis: 1. Mild nonspecific left-sided perinephric stranding in this patient with punctate bilateral nonobstructive nephrolithiasis. No asymmetric hydronephrosis or ureteral stone disease. 2. Complex cyst versus mass in the left ovary. Recommend nonemergent follow-up pelvic ultrasound. 3. Mild periportal edema could be related to aggressive hydration therapy. 4. Other incidental findings as outlined above on this limited noncontrast exam with mild motion artifact. Of note, there is a 5 mm nodule in the right middle lobe. Please see below recommendations. Abdomen ultrasound: 1. No gallstones, but the gallbladder wall is thickened and edematous. 2. Small bilateral pleural effusions. Discharged diagnosis and management: /Acute hypoxic respiratory failure; requiring intubation >96h - ARDS Likely from severe sepsis Required high FiO2 and PEEP to maintain oxygen saturation - trended down s/p bronch 07/28/19 - negative BAL s/p extubation 07/31/19 continues nebs, supplemntal O2 as needed / Severe sepsis with Septic shock and organ failure from left renal abscess/bacteremia/right foot cellulites with persistent fever Secondary to pyelonephritis with renal abscess and Escherichia coli bacteremia. weaned off pressor, Continue abx per ID, CTAP with contrast showed left renal abscess - s/p left nephrectomy 07/30 by Urologist Abx Stop date: 08/05/2019 /E.coli bacteremia, likely source from pyelonephritis and renal abscess Continue to treat with empiric antibiotic per ID recommendation till 08/05 - s/p left nephrectomy 07/30 by Urologist /Transaminitis - Could be from severe sepsis versus and underlying chronic hepatitis C - trending down LFTs, s/p HIDA scan showed normal study - hepatitis panel showed positive hepatitis C antibody - need further outpatient follow-up / Acute pyelonephritis with left renal abscess - Decreased leukocytosis. s/p iv abx, s/p left nephrectomy 07/30 Abx Stop date: 08/05/2019 - d/c with Cefdinir 300mg BID / Cellulites of right foot, improved with abx /Acute renal failure due to ATN from severe sepsis Creatinine was 2.2 on admission monitor renal function, Cr now stable / Malnutrition s/p NG tube feedings. Nutrition following start on clear liquid diet /Electrolyte imbalance Hyponatremia -s/p free water with tube feeding, cont iv fluid Hypokalemia - continue to replete as needed and continue to monitor BMP Hypomagnesemia - replete as needed, continue to follow Disposition: home with and richie estes Hospitalist Physical General appearance: Present: no acute distress, - EENT Eyes: Present: PERRL, EOM intact - Neck Neck: Present: supple, normal ROM - Respiratory Respiratory effort: non labored Respiratory: bilateral: CTABL, no rhonchi, negative: rales, wheezing - Cardiovascular Rhythm: regular Heart Sounds: Present: S1 & S2 - Extremities Extremities: no ischemia, no edema Extremity abnormal: edema - Abdominal General gastrointestinal: soft, non-tender, non-distended, normal bowel sounds - Integumentary Integumentary: Present: clear, warm - Psychiatric Psychiatric: cooperative - Neurologic Neurologic: no focal deficit Disposition: [id number]/[place]-06 HOME UNDER HOME [facility] Time spent for discharge: 34 minutes Core Measure Documentation - Palliative Care Palliative Care/ Comfort Measures: Not Applicable - Core Measures Any of the following diagnoses?: none Exam - Constitutional Vitals: Temp Pulse Resp BP Pulse Ox 98 F 90 30 H 121/80 99 08/04/19 07:00 08/04/19 07:00 08/04/19 09:04 08/04/19 07:00 08/04/19 07:00 Plan Activity: advance as tolerated (ambulate with roller walker) Weight Bearing Status: Non-Weight Bearing Diet: advance as tolerated Wound: per your surgeon's advice, per wound nurse instructions Durable Medical Equipment Needed Upon Discharge: Walker-Rolling Follow up with: KAYLEY TATEECKERMAN MD ALEJANDRA [Primary Care Provider] - 3-5 Days RENU SOLIS MD [Staff Physician] - 7 Days JENNIFER BLACK MD [Staff Physician] - 7 Days Prescriptions: Cefdinir 300 mg PO BID #4 capsule hydroCHLOROthiazide [HCTZ] 25 mg PO QDAY #30 tablet oxyCODONE /ACETAMINOPHEN [Percocet 5/325 mg] 2 tab PO Q6H PRN #14 tablet PRN Reason: Pain, Moderate (4-6)
[2019-08-04 12:22] VITALS: BP 129/87
--- NOTE | 2019-08-04 12:32 | Progress Note ---
Subjective Date of service: 08/04/19 Principal diagnosis: Acute respiratory failure Interval history: S/P LEFT NEPHRECTOMY - 07-30-19 (WILL/KAREN) This is a 44 yo F With past medical history of bipolar disorder, who [facility] with abdominal pain fever and right foot pain. She was seen on 06/28 in ER for insect bite on her right big toe, for which she was treated with 10 days of antibiotics with Augmentin. However patient returned to ER c/o intermittent fevers, body aches, weakness and nausea and malaise generalized abdominal pain for worsening redness of her right foot. Labs showed elevated WBC > 11.7, along with signs of UTI with UA showing > 182 WBC/HPF. CT A/P also showed L perinephric stranding. Pt also showed signs of acute renal failure with BUN/Cr at 46/2.2mg/dl. Multiple complaints but found to be hypotensive requiring vasopressor therapypt is admitted for sepsis Repeat CT---left kidney abscess off pressors mother at bedside/hydronephrosis during pregancy in the past (?side) pt alert abd -- left flank incision -clean- MIRTHA intact - removed gordon---clear urine-- dc a/p S/P LEFT NEPHRECTOMY - 07-30-19 (WILL/KAREN) - ABSCESS Hepatitis C Bipolar D/O on oral pain meds ok to dc home f/u 1-2 wks---de or Dr. Weathers hx of cannabis use for medicinal purposes (consider Dr. Sabrina Pyle) Objective - Constitutional Vitals: Vital Signs - 12hr 08/04/19 08/04/19 08/04/19 01:01 01:05 04:19 Temperature 98.2 F Pulse Rate 104 H Respiratory 18 18 18 Rate Blood Pressure 106/88 Blood Pressure [Right] O2 Sat by Pulse 99 Oximetry 08/04/19 08/04/19 08/04/19 05:02 07:00 08:04 Temperature 98.7 F 98 F Pulse Rate 95 H 90 Respiratory 18 19 32 H Rate Blood Pressure 116/86 Blood Pressure 121/80 [Right] O2 Sat by Pulse 99 99 Oximetry 08/04/19 08/04/19 08/04/19 09:04 10:00 12:00 Temperature 97.9 F Pulse Rate 94 H Respiratory 30 H 20 Rate Blood Pressure Blood Pressure 129/87 [Right] O2 Sat by Pulse 100 100 Oximetry - Labs CBC & Chem 7: 08/03/19 07:00 08/03/19 07:00 Medications & Allergies - Medications Allergies/Adverse Reactions: Allergies latex Allergy (Verified 06/28/19 17:11) Anaphylaxis tramadol [From Ultram] Allergy (Verified 06/28/19 17:10) Unknown haloperidol [From Haldol] Adverse Reaction (Verified 07/17/19 05:55) Shortness of Breath agitation/combative ketorolac [From Toradol] Adverse Reaction (Verified 06/28/19 17:10) Seizure prochlorperazine [From Compazine] Adverse Reaction (Verified 06/28/19 17:11) Unknown Home Medications: Home Medications Medication Instructions Recorded Confirmed Last Taken Type Cefdinir 300 mg PO BID #4 capsule 08/04/19 Unknown Rx hydroCHLOROthiazide [HCTZ] 25 mg PO QDAY #30 tablet 08/04/19 Unknown Rx oxyCODONE /ACETAMINOPHEN [Percocet 2 tab PO Q6H PRN #14 tablet 08/04/19 Unknown Rx 5/325 mg] Active Medications: Generic Name Dose Route Start Last Admin Trade Name Freq PRN Reason Stop Dose Admin Acetaminophen 650 mg 07/16/19 05:36 07/31/19 20:47 Tylenol PO 650 mg Q4H PRN Administration Pain MILD(1-3)/Fever >100.5/WHALEN Acetaminophen 650 mg 07/30/19 17:44 Tylenol LA Q4H PRN Pain, Mild (1-3) Al Hydrox/Mg Hydrox/Simethicone 30 ml 08/03/19 22:44 08/03/19 23:06 Alum-Mag Hydrox-Simeth [id number]/5ml PO 30 ml Q4H PRN Administration Constipation Albuterol 2.5 mg 07/16/19 22:48 07/16/19 23:01 Proventil IH 2.5 mg Q4HRT PRN Administration Shortness Of Breath Lipase/Protease/Amylase 1 each 07/18/19 14:34 Pancrenicolás Thomas 10,500 Unit FEEDTUBE PRN PRN For Clogged Feeding Tube Dextrose 50 ml 07/17/19 03:17 07/17/19 05:30 D50w (25gm) Syringe IV 50 ml PRN PRN Administration Hypoglycemia Enoxaparin Sodium 40 mg 07/31/19 11:00 08/04/19 10:45 Lovenox SUB-Q 40 mg QDAY@1000 KASIE Administration Famotidine 20 mg 07/20/19 10:00 08/04/19 10:44 Pepcid PO 20 mg BID KASIE Administration Hydrochlorothiazide 25 mg 07/23/19 10:00 08/04/19 10:44 Hctz PO 25 mg QDAY KASIE Administration Hydrophilic Ointment 1 applic 07/17/19 03:18 Vaseline Lip Therapy TP Q2HR PRN Dry Lips Ceftriaxone Sodium 2 gm in 100 mls @ 200 mls/hr 07/20/19 13:00 08/04/19 10:46 Rocephin/Ns 2 Gm/100 Ml IV 08/05/19 23:59 200 mls/hr Q24HR KASIE Administration Protocol Multi-Ingred Cream/Lotion/Oil/Oint 1 applic 07/17/19 03:18 Artificial Tears Ophth Oint OU Q4HR PRN Dry Eye(s) Nicotine 14 mg 07/16/19 10:00 08/04/19 10:44 Habitrol TD 14 mg QDAY KASIE Administration Ondansetron HCl 4 mg 07/16/19 05:36 08/03/19 20:55 Zofran IV 4 mg Q8H PRN Administration Nausea And Vomiting Oxycodone/Acetaminophen 2 tab 08/01/19 10:00 08/04/19 08:04 Percocet 5/325 PO 2 tab Q6H PRN Administration Pain, Moderate (4-6) Quetiapine Fumarate 50 mg 07/28/19 11:00 08/04/19 09:41 Seroquel PO Not Given BID KASIE Simple Syrup 15 ml 07/18/19 14:34 Simple Syrup FEEDTUBE PRN PRN Hypoglycemia Simple Syrup 30 ml 07/18/19 14:34 Simple Syrup FEEDTUBE PRN PRN Hypoglycemia Sodium Bicarbonate 325 mg 07/18/19 14:34 Sodium Bicarbonate FEEDTUBE PRN PRN For Clogged Feeding Tube Sodium Chloride 10 ml 07/16/19 10:00 08/04/19 11:06 Sodium Chloride Flush Syringe 10 Ml IV 10 ml BID KASIE Administration Sodium Chloride 10 ml 07/16/19 05:36 Sodium Chloride Flush Syringe 10 Ml IV PRN PRN LINE FLUSH Sodium Polystyrene Sulfonate 15 gm 07/28/19 22:14 07/28/19 22:35 Kionex PO 15 gm Q6H PRN Administration Hyperkalemia
--- NOTE | 2019-08-04 14:53 | Consultation ---
History of Present Illness - Reason for Consult Consult date: 08/04/19 Reason for consult: Mental Health [place] Requesting physician: AINSLEY KEARNS - Chief Complaint Chief complaint: "I need a psychiatrist" - History of Present Psychiatric Illness 44 y.o. white female [facility]ab[facility]. Per the notes the patient had several medical issues that needed to be addressed, so she was admitted to the hospital. Psychiatry was consulted to see the patient for bipolar do. Today the patient was calm during the assessment. She stated that she was dx with Bipolar DO and took several different medications. Currently, she does not have a psychiatrist. Per collateral information from her mother Ms Kay who was at the bedside, she stated that her daughter also has a hx of opiate abuse. She stated she believe that her daughter overdosed on "pain pills" in the past. The patient acknowledged the overdose when asked. She denies being depressed and SI/HI's. She denies erratic sleep and a poor appetite. She denies recreational drug use and excessive alcohol consumption (etoh). The patient wants a referral for outpatient psy services in her local area. Medications and Allergies Allergies Allergy/AdvReac Type Severity Reaction Status Date / Time latex Allergy Anaphylaxis Verified 06/28/19 17:11 tramadol [From Ultram] Allergy Unknown Verified 06/28/19 17:10 haloperidol [From Haldol] AdvReac Shortness Verified 07/17/19 05:55 of Breath ketorolac [From Toradol] AdvReac Seizure Verified 06/28/19 17:10 prochlorperazine AdvReac Unknown Verified 06/28/19 17:11 [From Compazine] Home Medications Medication Instructions Recorded Confirmed Last Taken Type Cefdinir 300 mg PO BID #4 capsule 08/04/19 Unknown Rx hydroCHLOROthiazide [HCTZ] 25 mg PO QDAY #30 tablet 08/04/19 Unknown Rx oxyCODONE /ACETAMINOPHEN [Percocet 2 tab PO Q6H PRN #14 tablet 08/04/19 Unknown Rx 5/325 mg] Active Meds: Active Medications Acetaminophen (Tylenol) 650 mg PO Q4H PRN PRN Reason: Pain MILD(1-3)/Fever >100.5/WHALEN Last Admin: 07/31/19 20:47 Dose: 650 mg Documented by: Acetaminophen (Tylenol) 650 mg [place] Q4H PRN PRN Reason: Pain, Mild (1-3) Al Hydrox/Mg Hydrox/Simethicone (Alum-Mag Hydrox-Simeth [phone]/5ml) 30 ml PO Q4H PRN PRN Reason: Constipation Last Admin: 08/03/19 23:06 Dose: 30 ml Documented by: Albuterol (Proventil) 2.5 mg IH Q4HRT PRN PRN Reason: Shortness Of Breath Last Admin: 07/16/19 23:01 Dose: 2.5 mg Documented by: Lipase/Protease/Amylase (Quique Thomas 10,500 Unit) 1 each FEEDTUBE PRN PRN PRN Reason: For Clogged Feeding Tube Dextrose (D50w (25gm) Syringe) 50 ml IV PRN PRN PRN Reason: Hypoglycemia Last Admin: 07/17/19 05:30 Dose: 50 ml Documented by: Enoxaparin Sodium (Lovenox) 40 mg SUB-Q QDAY@1000 KASIE Last Admin: 08/04/19 10:45 Dose: 40 mg Documented by: Famotidine (Pepcid) 20 mg PO BID [facility] Last Admin: 08/04/19 10:44 Dose: 20 mg Documented by: Hydrochlorothiazide (Hctz) 25 mg PO QDAY [facility] Last Admin: 08/04/19 10:44 Dose: 25 mg Documented by: Hydrophilic Ointment (Vaseline Lip Therapy) 1 applic TP Q2HR PRN PRN Reason: Dry Lips Ceftriaxone Sodium (Rocephin/Ns 2 Gm/100 Ml) 2 gm in 100 mls @ 200 mls/hr IV Q24HR [facility]; Protocol Stop: 08/05/19 23:59 Last Admin: 08/04/19 10:46 Dose: 200 mls/hr Documented by: Multi-Ingred Cream/Lotion/Oil/Oint (Artificial Tears Ophth Oint) 1 applic OU Q4HR PRN PRN Reason: Dry Eye(s) Nicotine (Habitrol) 14 mg TD QDAY [facility] Last Admin: 08/04/19 10:44 Dose: 14 mg Documented by: Ondansetron HCl (Zofran) 4 mg IV Q8H PRN PRN Reason: Nausea And Vomiting Last Admin: 08/03/19 20:55 Dose: 4 mg Documented by: Oxycodone/Acetaminophen (Percocet 5/325) 2 tab PO Q6H PRN PRN Reason: Pain, Moderate (4-6) Last Admin: 08/04/19 08:04 Dose: 2 tab Documented by: Quetiapine Fumarate (Seroquel) 50 mg PO BID [facility] Last Admin: 08/04/19 09:41 Dose: Not Given Documented by: Simple Syrup (Simple Syrup) 15 ml FEEDTUBE PRN PRN PRN Reason: Hypoglycemia Simple Syrup (Simple Syrup) 30 ml FEEDTUBE PRN PRN PRN Reason: Hypoglycemia Sodium Bicarbonate (Sodium Bicarbonate) 325 mg FEEDTUBE PRN PRN PRN Reason: For Clogged Feeding Tube Sodium Chloride (Sodium Chloride Flush Syringe 10 Ml) 10 ml IV BID [facility] Last Admin: 08/04/19 11:06 Dose: 10 ml Documented by: Sodium Chloride (Sodium Chloride Flush Syringe 10 Ml) 10 ml IV PRN PRN PRN Reason: LINE FLUSH Sodium Polystyrene Sulfonate (Kionex) 15 gm PO Q6H PRN PRN Reason: Hyperkalemia Last Admin: 07/28/19 22:35 Dose: 15 gm Documented by: Past psychiatric history - Past Medical History Past Medical History: other (Renal Abcess) Past Surgical History: Other (Eye Surgery) - past Psychiatric treatment and history psychiatric treatment history: Hx of Bipolar DO per the patient. Denies a fam psy hx. - Social History Social history: lives with family Mental Status Exam - Vital signs Last Vital Signs Temp 97.9 F 08/04/19 12:00 Pulse 94 H 08/04/19 12:00 Resp 20 08/04/19 12:00 BP 129/87 08/04/19 12:00 Pulse Ox 100 08/04/19 12:00 - Exam Narrative exam: MSE: Appearance: calm, cooperative Behavior: regular eye contact Speech: somewhat rapid speech Mood: "okay" Affect: congruent to mood Thought Process: circumstantial Thought Content: denies Si/HI's and AVH's Motor Activity: sitting up in bed Cognition: A/O x 3 Insight: fair Judgment: appropriate Results Result Diagrams: 08/03/19 07:00 08/03/19 07:00 All other labs normal. Assessment and Plan Assessment and plan: Impression: Bipolar DO per the patient. Hx of Opiate Use Per the patient's mother Ms Kay. Today the patient was calm during the assessment. Recommendation/Plan: Discussed with the patient the importance to opiate as prescribed, she verbalized understanding. Psy signs off. Dispo: The patient can follow up with the [facility] for outpatient psy services. Staffed with Dr Serina Scanlon.
== END 2019-08-04 13:10 | disposition home health service (06) | DRG 853 ==
LOC: ED 01:20 → CC1 05:36 → 3B-SURG 08-01 16:29
PROVIDERS: ADMIT Internal Medicine; ATTEND Internal Medicine
PROC: 4A033R1 Measurement of Arterial Saturation, Peripheral, Percutaneous Approach (ICD-10-PCS; 2019-07-16)
PROC: 02HV33Z Insertion of Infusion Device into Superior Vena Cava, Percutaneous Approach (ICD-10-PCS; 2019-07-16)
PROC: 5A09357 Assistance with Respiratory Ventilation, Less than 24 Consecutive Hours, Continuous Positive Airway Pressure (ICD-10-PCS; 2019-07-16)
PROC: B548ZZA Ultrasonography of Superior Vena Cava, Guidance (ICD-10-PCS; 2019-07-16)
PROC: 5A1955Z Respiratory Ventilation, Greater than 96 Consecutive Hours (ICD-10-PCS; principal; 2019-07-17)
PROC: 0BH17EZ Insertion of Endotracheal Airway into Trachea, Via Natural or Artificial Opening (ICD-10-PCS; 2019-07-17)
PROC: 0B988ZZ Drainage of Left Upper Lobe Bronchus, Via Natural or Artificial Opening Endoscopic (ICD-10-PCS; 2019-07-28)
PROC: 0TT10ZZ Resection of Left Kidney, Open Approach (ICD-10-PCS; 2019-07-30)
PROC: 30233N1 Transfusion of Nonautologous Red Blood Cells into Peripheral Vein, Percutaneous Approach (ICD-10-PCS; 2019-07-30)
PROC: 0BP1XDZ Removal of Intraluminal Device from Trachea, External Approach (ICD-10-PCS; 2019-07-31)
PROC: 05HY33Z Insertion of Infusion Device into Upper Vein, Percutaneous Approach (ICD-10-PCS; 2019-07-31)
DX: A41.51 Sepsis due to Escherichia coli [E. coli] (principal); R65.21 Severe sepsis with septic shock; N17.0 Acute kidney failure with tubular necrosis; J96.01 Acute respiratory failure with hypoxia; K72.00 Acute and subacute hepatic failure without coma; N15.1 Renal and perinephric abscess; L03.115 Cellulitis of right lower limb; F31.9 Bipolar disorder, unspecified; F17.210 Nicotine dependence, cigarettes, uncomplicated; R91.1 Solitary pulmonary nodule; I25.10 Atherosclerotic heart disease of native coronary artery without angina pectoris; L02.611 Cutaneous abscess of right foot; E46 Unspecified protein-calorie malnutrition; E87.6 Hypokalemia; E87.0 Hyperosmolality and hypernatremia; D69.6 Thrombocytopenia, unspecified; E83.39 Other disorders of phosphorus metabolism; E87.1 Hypo-osmolality and hyponatremia; E83.42 Hypomagnesemia; J90 Pleural effusion, not elsewhere classified; K81.9 Cholecystitis, unspecified; N13.6 Pyonephrosis; B18.2 Chronic viral hepatitis C; Z68.27 Body mass index [BMI] 27.0-27.9, adult; Z88.6 Allergy status to analgesic agent; Z91.040 Latex allergy status; Z71.6 Tobacco abuse counseling
CPT/HCPCS: 36415; 36600; 70450; 70486; 71045; 71250; 74018; 74176; 74177; 76705; 76770; 76830; 76856; 78226; 80048; 80053; 80074; 80076; 80202; 81001; 82140; 82570; 82803; 82805; 82962; 83036; 83690; 83735; 84100; 84300; 84702; 85007; 85025; 85027; 85610; 85730; 86850; 86900; 86901; 86920; 87040; 87070; 87076; 87086; 87116; 87186; 87205; 87517; 87806; 88307; 93005; 93010; 93306; 93970; 94002; 94003; 94640; 94660; 94760; 99285; 99406; G0378; A9537; J0330; J0610; J0692; J0696; J1100; J1170; J1200; J1630; J1650; J1940; J2060; J2185; J2250; J2370; J2405; J2543; J2704; J2710; J3010; J3370; J3475; J3480; J3490; J7030; J7040; J7050; J7070; P9016; Q9967

== ENCOUNTER 2019-12-21 15:45 | Emergency (ER) | payer MEDICAID ==
--- NOTE | 2019-12-21 18:57 | Event Note ---
ED Screening Note ED Screening Note: 44 female with pmh of bipolar disorder 4 months s/p nephrectomy presents to ED today c/o right flank pain that radiates across back to lower abdomen. No fever or chest pain. Taking motrin. products. Says morphine does not help only dilaudid helps. Possible secondary gain behavior This initial assessment/diagnostic orders/clinical plan/treatment(s) is/are subject to change based on patients health status, clinical progression and re- assessment by fellow clinical providers in the ED. Further treatment and workup at subsequent clinical providers discretion. Patient/guardian urged not to elope from the ED as their condition may be serious if not clinically assessed and managed. Initial orders include:
[2019-12-21 19:23] LABS: Basophils % (Auto) 0.8 % (0.0-1.8); Eosinophils # (Auto) 0.1 K/mm3 (0.0-0.4); Hematocrit 42.1 % (30.3-42.9); Hemoglobin 14.4 gm/dl (10.1-14.3); Lymphocytes # (Auto) 2.6 K/mm3 (1.2-5.4); Lymphocytes % (Auto) 44.1 % (13.4-35.0); Mean Corpuscular HGB Conc 34 % (30-34); Mean Corpuscular Volume 89 fl (79-97); Monocytes # (Auto) 0.4 K/mm3 (0.0-0.8); Monocytes % (Auto) 7.5 % (0.0-7.3); Platelet Count 167 K/mm3 (140-440); Red Blood Count 4.73 M/mm3 (3.65-5.03); Red Cell Distribution Width 13.9 % (13.2-15.2)
[2019-12-21] MEDS ORDERED: SODIUM CHLORIDE 0.9% 1000 ML 1,000 ML IV ONE (19:38)
[2019-12-21] MEDS ORDERED: HYDROmorphone 1 MG/1 ML INJ IV ONE ×2 (19:38→21:45)
[2019-12-21] MEDS ORDERED: ONDANSETRON 4 MG/2 ML INJ IV ONE (19:38)
[2019-12-21 19:51] LABS: Alanine Aminotransferase 99 units/L (7-56); Albumin 4.4 g/dL (3.9-5); BUN/Creatinine Ratio 18; Blood Urea Nitrogen 18 mg/dL (7-17); Calcium 10.3 mg/dL (8.4-10.2); Hemolysis Index 26
[2019-12-21 19:55] LABS: Bilirubin,Direct < 0.2 mg/dL (0-0.2)
[2019-12-21 20:05] LABS: Bilirubin,Urine NEG (Negative); Blood,Urine NEG (Negative); Color,Urine Colorless (Yellow); Protein,Urine <15 mg/dL mg/dL (Negative); Urobilinogen,Urine < 2.0 mg/dL (<2.0); WBC,Urine < 1.0 /HPF (0.0-6.0)
[2019-12-21 20:07] LABS: HCG Qualitative,Urine Negative (Negative)
--- NOTE | 2019-12-21 20:57 | Cat Scan Report ---
CT of the abdomen and pelvis with contrast INDICATION: Prior left nephrectomy with right-sided pain COMPARISON: 08/24/2019 FINDINGS: Liver, spleen, pancreas, adrenal glands and right kidney all appear normal. There has been prior left nephrectomy. No definite gallbladder or biliary tree abnormality. No fluid or adenopathy i n the upper abdomen. CT of the pelvis shows a small umbilical hernia containing fat. Appendix is seen and is normal. There are several follicular cysts in each ovary without free pelvic fluid. No diverticulosis or diverticu litis. No bowel obstruction is seen. No significant skeletal lesion. IMPRESSION: Negative study. No kidney stones or appendicitis seen. Automated exposure control was utilized to diminish radiation dose. Signer Name: Marcelo Recinos MD Signed: 12/21/2019 8:53 PM Workstation Name: [id number]
--- NOTE | 2019-12-21 21:06 | Emergency Department Report ---
ED Abdominal Pain HPI - General Chief Complaint: Abdominal Pain Stated Complaint: RT ABD PAIN Time Seen by Provider: 12/21/19 18:54 Source: patient Mode of arrival: Ambulatory Limitations: No Limitations - History of Present Illness Initial Comments: This is a 44-year-old female nontoxic, well nourished in appearance, no acute signs of distress presents to the ED with c/o of nausea and vomiting and right upper abdominal pain 1 day. Patient describes vomiting as food content and yellow gastric acid. Patient describes abdominal pain as cramping and aching with level of 3/10 with radiation to right sided flank. Patient denies chest pain, short of breath, fever, chills, headache, stiff neck, numbness or tingling. Patient denies any diarrhea or constipation. Patient denies any recent travels. Patient stated allergies to latex, tramadol, haloperidol, ketorolac, and prochlorperazine. MD Complaint: abdominal pain -: days(s) (1) Location: RUQ Radiation: R flank Migration to: no migration Severity: mild Severity scale (0 -10): 3 Quality: cramping, aching Consistency: constant Improves With: nothing Worsens With: nothing Associated Symptoms: nausea, vomiting. denies: diarrhea, fever, chills, constipation, dysuria, hematemesis, hematochezia, melena, hematuria, anorexia, syncope - Related Data Previous Rx's Medication Instructions Recorded Last Taken Type oxyCODONE /ACETAMINOPHEN [Percocet 1 tab PO Q6H PRN #30 tablet 08/20/19 Unknown Rx 5/325 mg] Acetaminophen [Tylenol] 325 mg PO Q6H PRN #20 capsule 12/21/19 Unknown Rx Ondansetron [Zofran Odt] 4 mg PO Q8HR PRN #20 tab.rapdis 12/21/19 Unknown Rx Allergies Allergy/AdvReac Type Severity Reaction Status Date / Time latex Allergy Anaphylaxis Verified 06/28/19 17:11 tramadol [From Ultram] Allergy Unknown Verified 06/28/19 17:10 haloperidol [From Haldol] AdvReac Shortness Verified 07/17/19 05:55 of Breath ketorolac [From Toradol] AdvReac Seizure Verified 06/28/19 17:10 prochlorperazine AdvReac Unknown Verified 06/28/19 17:11 [From Compazine] ED Review of Systems ROS: Stated complaint: RT ABD PAIN Other details as noted in HPI Constitutional: denies: chills, fever Eyes: denies: eye pain, eye discharge, vision change ENT: denies: ear pain, throat pain Respiratory: denies: cough, shortness of breath, wheezing Cardiovascular: denies: chest pain, palpitations Endocrine: no symptoms reported Gastrointestinal: abdominal pain, nausea, vomiting. denies: diarrhea Genitourinary: denies: urgency, dysuria, discharge Musculoskeletal: denies: back pain, joint swelling, arthralgia Skin: denies: rash, lesions Neurological: denies: headache, weakness, paresthesias Psychiatric: denies: anxiety, depression Hematological/Lymphatic: denies: easy bleeding, easy bruising ED Past Medical Hx - Past Medical History Previous Medical History?: Yes Hx Deep Vein Thrombosis: No Hx Liver Disease: Yes (Hep. C) Hx Renal Disease: Yes (Current problem: Lt Pylonephritis. Septic) Hx Psychiatric Treatment: Yes (Bi [employer]) - Surgical History Past Surgical History?: Yes Hx Pacemaker: No Hx Internal Defibrillator: No Additional Surgical History: Eye surgery, blind in right eye. Left Nephrectomy - Social History Smoking Status: Never Smoker Substance Use Type: None - Medications Home Medications: Home Medications Medication Instructions Recorded Confirmed Last Taken Type oxyCODONE /ACETAMINOPHEN [Percocet 1 tab PO Q6H PRN #30 tablet 08/20/19 Unknown Rx 5/325 mg] Acetaminophen [Tylenol] 325 mg PO Q6H PRN #20 capsule 12/21/19 Unknown Rx Ondansetron [Zofran Odt] 4 mg PO Q8HR PRN #20 tab.rapdis 12/21/19 Unknown Rx ED Physical Exam - General Limitations: No Limitations General appearance: alert, in no apparent distress - Head Head exam: Present: atraumatic, normocephalic - Neck Neck exam: Present: normal inspection, full ROM. Absent: tenderness, meningismus, lymphadenopathy - Respiratory Respiratory exam: Present: normal lung sounds bilaterally. Absent: respiratory distress, wheezes, rales, rhonchi, stridor, chest wall tenderness, accessory muscle use, decreased breath sounds, prolonged expiratory - Cardiovascular Cardiovascular Exam: Present: regular rate, normal rhythm, normal heart sounds. Absent: bradycardia, tachycardia, irregular rhythm, systolic murmur, diastolic murmur, rubs, gallop - GI/Abdominal GI/Abdominal exam: Present: soft, tenderness, normal bowel sounds. Absent: distended, guarding, rebound, rigid, diminished bowel sounds - Extremities Exam Extremities exam: Present: normal inspection, full ROM - Back Exam Back exam: Present: normal inspection, full ROM. Absent: tenderness, CVA tenderness (R), CVA tenderness (L), muscle spasm, paraspinal tenderness, vertebral tenderness, rash noted - Neurological Exam Neurological exam: Present: alert, oriented X3, normal gait - Psychiatric Psychiatric exam: Present: normal affect, normal mood - Skin Skin exam: Present: warm, dry, intact, normal color. Absent: rash ED Course Vital Signs 12/21/19 12/21/19 12/21/19 18:46 19:50 20:20 Temperature 98.1 F Pulse Rate 70 Respiratory 18 18 18 Rate Blood Pressure 124/78 O2 Sat by Pulse 98 Oximetry 12/21/19 21:53 Temperature Pulse Rate Respiratory 18 Rate Blood Pressure O2 Sat by Pulse Oximetry - Reevaluation(s) Reevaluation #1: 12/21/19 21:08 Patient is speaking in full sentences with no signs of distress noted. ED Medical Decision Making - Lab Data Result diagrams: 12/21/19 19:02 12/21/19 19:02 - Medical Decision Making This is a 44-year-old female that presents with abdominal pain. Patient is stable and was examined by me. There is no abdominal tenderness. Negative signs of symptoms of appendicitis. Labs obtained. UA obtained. CT of abdomen obtained and dictated by the radiologist. Patient is notified of the report with no questions noted by the patient. Vital signs are stable prior to discharge. Patient received medical treatment in the ED which patient stated symptoms has resovled and subsided. Was instructed note to operate any machinery due to possible drowsiness and stated someone will drive the patient home. A by mouth c hallenge has been obtained and patient tolerated well with no nausea vomiting. Patient was notified of strict precatuions of appendictis symptoms and to return to the ED if symptoms occurs as soon as possible. Patient was also instructed to Follow-up with a primary care doctor in 3-5 days or if symptoms worsen and continue return to emergency room as soon as possible. At time of discharge, the patient does not seem toxic or ill in appearance. No acute signs of distress noted. Patient agrees to discharge treatment plan of care. No further questions noted by the patient. Critical care attestation.: If time is entered above; I have spent that time in minutes in the direct care of this critically ill patient, excluding procedure time. ED Disposition Clinical Impression: Abdominal pain Qualifiers: Abdominal location: generalized Qualified Code(s): R10.84 - Generalized abdominal pain Nausea & vomiting Qualifiers: Vomiting type: unspecified Vomiting Intractability: non-intractable Qualified Code(s): R11.2 - Nausea with vomiting, unspecified Disposition: DC- TO HOME OR SELFCARE Is pt being admited?: No Does the pt Need Aspirin: No Condition: Stable Instructions: Abdominal Pain (ED), Acute Nausea and Vomiting (ED) Additional Instructions: Follow-up with a primary care and research manager doctor in 3-5 days or if symptoms worsen and continue return to emergency room as soon as possible. Prescriptions: Acetaminophen [Tylenol] 325 mg PO Q6H PRN #20 capsule PRN Reason: Pain , Severe (7-10) Ondansetron [Zofran Odt] 4 mg PO Q8HR PRN #20 tab.rapdis PRN Reason: nausea Referrals: PRIMARY CAREMD [Primary Care Provider] - 3-5 Days DERIC ALMAZAN MD [Staff Physician] - 3-[address] [facility] [Outside] - 3-5 Days [facility] [Provider Group] - 3-5 Days
[2019-12-21 22:57] VITALS: BP 123/82
== END 2019-12-21 22:35 | disposition home or self-care (01) ==
LOC: ED 15:45
DX: R11.2 Nausea with vomiting, unspecified (principal); R10.11 Right upper quadrant pain; F31.9 Bipolar disorder, unspecified; B19.20 Unspecified viral hepatitis C without hepatic coma; Z91.040 Latex allergy status; Z88.8 Allergy status to other drugs, medicaments and biological substances; Z98.890 Other specified postprocedural states; Z79.899 Other long term (current) drug therapy
CPT/HCPCS: 36415; 74177; 80048; 80076; 81001; 81025; 83690; 85025; 96361; 96374; 96375; 96376; 99284; J1170; J2405; J7030; Q9967

== ENCOUNTER 2020-04-22 11:42 | Emergency (ER) | payer MEDICAID ==
[2020-04-22] MEDS ORDERED: ACETAMINOPHEN 325 MG TAB PO ONE (13:53)
--- NOTE | 2020-04-22 13:55 | Emergency Department Report ---
ED General Adult HPI - General Chief complaint: Fall Stated complaint: FALL Time Seen by Provider: 04/22/20 13:46 Source: patient Mode of arrival: Ambulatory Limitations: No Limitations - History of Present Illness Initial comments: This is a 44-year-old female with a history of bipolar disorder and previous nephrectomy. Additionally she was seen for flank pain in December the current urine found to have a negative CT of the abdomen and pelvis. Today she presents after mechanical fall. She states that she tripped on her "flip-flops". She states that she hit her head and "hurts all over". She did not lose consciousness. She had no retrograde amnesia. She had no prodromal weakness. She abraded her right lower leg. She does not report any neck or back pain or injury. She states that after she hit her head she "feels back to normal". Previous discharge summary: Labs reviewed CBC unremarkable, chemistries unremarkable, UA negative TIA Imaging CT abdomen and pelvis 1. A 2.7 cm abscess in the superior aspect of the nephrectomy bed adjacent to the left adrenalgland. It would probably be amenable to CT-guided percutaneous drainage. 2. Mild residual small bowel ileus. 3. Normal pelvis with follicular cysts of the ovaries. Left kidney hematoma Fluid collection was suspicious for infectious origin. IR consulted and sp CT-guided drainage on 08/18. She received empiric IV antibiotics, ID consult Appreciated. Cultures of the fluid were negative. Appears to have been a hematoma. Hypertension; hydrochlorothiazide on hold, patient is currently normotensive History of hepatitis C, continue outpatient management Bipolar disorder not on any medications, outpatient mental health -: Gradual Location: head, right, lower extremity Radiation: non-radiation Quality: aching Consistency: intermittent Improves with: none Worsens with: none Associated Symptoms: denies other symptoms - Related Data Previous Rx's Medication Instructions Recorded Last Taken Type oxyCODONE /ACETAMINOPHEN [Percocet 1 tab PO Q6H PRN #30 tablet 08/20/19 Unknown Rx 5/325 mg] Acetaminophen [Tylenol] 325 mg PO Q6H PRN #20 capsule 12/21/19 Unknown Rx Ondansetron [Zofran Odt] 4 mg PO Q8HR PRN #20 tab.rapdis 12/21/19 Unknown Rx Butalb/Acetaminophen/Caffeine 1 cap PO Q6HR PRN #5 cap 04/22/20 Unknown Rx [Fioricet 50-300-40 mg CAP] Allergies Allergy/AdvReac Type Severity Reaction Status Date / Time latex Allergy Anaphylaxis Verified 04/22/20 11:47 tramadol [From Ultram] Allergy Unknown Verified 04/22/20 11:47 haloperidol [From Haldol] AdvReac Shortness Verified 04/22/20 11:47 of Breath ketorolac [From Toradol] AdvReac Seizure Verified 04/22/20 11:47 prochlorperazine AdvReac Unknown Verified 04/22/20 11:47 [From Compazine] ED Review of Systems ROS: Stated complaint: FALL Other details as noted in HPI Constitutional: denies: chills, fever Eyes: eye discharge. denies: eye pain, vision change ENT: denies: ear pain, throat pain Respiratory: denies: cough, shortness of breath, wheezing Cardiovascular: denies: chest pain, palpitations Endocrine: no symptoms reported Gastrointestinal: diarrhea. denies: abdominal pain, nausea Genitourinary: denies: urgency, dysuria Musculoskeletal: as per HPI. denies: back pain, arthralgia Skin: denies: rash, lesions Neurological: headache. denies: weakness, paresthesias Psychiatric: denies: anxiety, depression Hematological/Lymphatic: denies: easy bleeding, easy bruising ED Past Medical Hx - Past Medical History Hx Deep Vein Thrombosis: No Hx Liver Disease: Yes (Hep. C) Hx Renal Disease: Yes (Current problem: Lt Pylonephritis. Septic) Hx Psychiatric Treatment: Yes (Bi Polar) - Surgical History Hx Pacemaker: No Hx Internal Defibrillator: No Additional Surgical History: Eye surgery, blind in right eye. Left Nephrectomy - Social History Smoking Status: Current Every Day Smoker Substance Use Type: None - Medications Home Medications: Home Medications Medication Instructions Recorded Confirmed Last Taken Type oxyCODONE /ACETAMINOPHEN [Percocet 1 tab PO Q6H PRN #30 tablet 08/20/19 Unknown Rx 5/325 mg] Acetaminophen [Tylenol] 325 mg PO Q6H PRN #20 capsule 12/21/19 Unknown Rx Ondansetron [Zofran Odt] 4 mg PO Q8HR PRN #20 tab.rapdis 12/21/19 Unknown Rx Butalb/Acetaminophen/Caffeine 1 cap PO Q6HR PRN #5 cap 05/22/20 Unknown Rx [Fioricet 50-300-40 mg CAP] ED Physical Exam - General Limitations: No Limitations General appearance: alert, in no apparent distress - Head Head exam: Present: atraumatic, normocephalic, other (There is no abrasion no cephalhematoma no soft tissue swelling of the head) - Eye Eye exam: Present: normal appearance. Absent: scleral icterus - ENT ENT exam: Present: normal exam, mucous membranes moist - Neck Neck exam: Present: normal inspection. Absent: tenderness, meningismus - Respiratory Respiratory exam: Present: normal lung sounds bilaterally. Absent: respiratory distress - Cardiovascular Cardiovascular Exam: Present: regular rate, normal rhythm. Absent: systolic murmur, diastolic murmur, rubs, gallop - GI/Abdominal GI/Abdominal exam: Present: soft, normal bowel sounds. Absent: distended, tenderness, guarding, rebound - Extremities Exam Extremities exam: Present: full ROM, normal capillary refill, other (Abrasion right lower leg no deformity no soft tissue swelling ankle and knee full range of motion and nontender. ). Absent: normal inspection (Contracted right hand), tenderness, pedal edema, joint swelling, calf tenderness - Back Exam Back exam: Present: normal inspection. Absent: CVA tenderness (R), CVA tenderness (L), muscle spasm, paraspinal tenderness, vertebral tenderness - Neurological Exam Neurological exam: Present: alert, oriented X3, motor sensory deficit (Chronic right upper extremity) - Psychiatric Psychiatric exam: Present: normal mood, flat affect - Skin Skin exam: Present: warm, dry, intact, normal color. Absent: rash ED Course Vital Signs 04/22/20 04/22/20 04/22/20 11:49 11:51 13:58 Temperature 98.4 F 97.9 F Pulse Rate 63 71 Respiratory 14 12 Rate Blood Pressure 93/64 Blood Pressure 88/53 [Right] O2 Sat by Pulse 100 100 Oximetry 04/22/20 14:03 Temperature Pulse Rate Respiratory 14 Rate Blood Pressure Blood Pressure [Right] O2 Sat by Pulse Oximetry - Reevaluation(s) Reevaluation #1: Previous review of vital signs indicate that the patient's blood pressure tends to run low normal. Her standing blood pressure and heart rate were normal. 04/22/20 14:42 ED Medical Decision Making - Lab Data Result diagrams: 04/22/20 13:55 04/22/20 13:55 Laboratory Results - last 24 hr 04/22/20 04/22/20 13:55 14:04 WBC 5.7 RBC 4.53 Hgb 14.2 Hct 44.3 H MCV 98 H MCH 31 MCHC 32 RDW 14.0 Plt Count 173 Lymph % (Auto) 26.2 Bertie % (Auto) 8.2 H Eos % (Auto) 2.3 Baso % (Auto) 0.7 Lymph # 1.5 Bertie # 0.5 Eos # 0.1 Baso # 0.0 Seg Neutrophils % 62.6 Seg Neutrophils # 3.6 POC Glucose 70 Critical care attestation.: If time is entered above; I have spent that time in minutes in the direct care of this critically ill patient, excluding procedure time. ED Disposition Clinical Impression: Headache Fall Qualifiers: Encounter type: initial encounter Qualified Code(s): W19.XXXA - Unspecified fall, initial encounter Abrasion of right lower leg Qualifiers: Encounter type: initial encounter Qualified Code(s): S80.811A - Abrasion, right lower leg, initial encounter Disposition: - TO HOME OR SELFCARE Is pt being admited?: No Does the pt Need Aspirin: No Condition: Stable Instructions: Acute Headache (ED) Additional Instructions: Return any acute change or problem. Follow-up with primary care physician. Prescriptions: Butalb/Acetaminophen/Caffeine [Fioricet 50-300-40 mg CAP] 1 cap PO Q6HR PRN #5 cap PRN Reason: Pain, Moderate (4-6) Referrals: PRIMARY CARE [Primary Care Provider] - 3-5 Days [facility] [Provider Group] - 3-5 Days Time of Disposition: 15:17
[2020-04-22 14:00] VITALS: BP 88/53
[2020-04-22] MEDS ORDERED: TETANUS,DIPHTHERIA TOXOID ADULT 0.5 ML INJ IM ONE (14:00)
[2020-04-22] MEDS ORDERED: NEOMY 3.5 MG/BACIT 400 UNITS/POLY B 5000 UNITS/GM OINT PACKET TP ONE (14:21)
[2020-04-22 14:24] LABS: Basophils % (Auto) 0.7 % (0.0-1.8); Eosinophils # (Auto) 0.1 K/mm3 (0.0-0.4); Eosinophils % (Auto) 2.3 % (0.0-4.3); Hematocrit 44.3 % (30.3-42.9); Hemoglobin 14.2 gm/dl (10.1-14.3); Lymphocytes # (Auto) 1.5 K/mm3 (1.2-5.4); Lymphocytes % (Auto) 26.2 % (13.4-35.0); Mean Corpuscular HGB Conc 32 % (30-34); Mean Corpuscular Volume 98 fl (79-97); Monocytes # (Auto) 0.5 K/mm3 (0.0-0.8); Monocytes % (Auto) 8.2 % (0.0-7.3); Platelet Count 173 K/mm3 (140-440); Red Blood Count 4.53 M/mm3 (3.65-5.03)
[2020-04-22 14:44] LABS: Calcium 9.2 mg/dL (8.4-10.2)
== END 2020-04-22 16:31 | disposition home or self-care (01) ==
LOC: ED 11:42
DX: S80.811A Abrasion, right lower leg, initial encounter (principal); R51 Headache; F31.9 Bipolar disorder, unspecified; F17.200 Nicotine dependence, unspecified, uncomplicated; Z87.448 Personal history of other diseases of urinary system; Z98.890 Other specified postprocedural states; Z79.899 Other long term (current) drug therapy; Z91.040 Latex allergy status; Z88.8 Allergy status to other drugs, medicaments and biological substances; W01.0XXA Fall on same level from slipping, tripping and stumbling without subsequent striking against object, initial encounter; Y93.89 Activity, other specified; Y92.89 Other specified places as the place of occurrence of the external cause; Y99.8 Other external cause status
CPT/HCPCS: 36415; 80048; 82962; 85025; 90471; 90714; A6250

== ENCOUNTER 2020-04-22 23:59 | Emergency (ER) | payer MEDICAID ==
[2020-04-23] MEDS ORDERED: SODIUM CHLORIDE 0.9% 1000 ML 1,000 ML IV ONE (00:24)
[2020-04-23] MEDS ORDERED: FOLIC ACID 1 MG, MULTIPLE VITAMIN INJ, ADULT 10 ML in SODIUM CHLORIDE 0.9% 1000 ML 1,00... IV ONE (00:24)
--- NOTE | 2020-04-23 00:28 | Emergency Department Report ---
ED Alcohol HPI - General Chief Complaint: Alcohol Stated Complaint: ETOH Time Seen by Provider: 04/23/20 00:24 Source: patient, EMS Mode of arrival: Stretcher Limitations: No Limitations - History of Present Illness Initial Comments: Patient is a 44-year-old female that presents emergency room with complaints of acute alcohol intoxication and abrasions to her bilateral lower extremities. Patient states she was here earlier today and she was seen for head injury and discharged. Patient states she left and started drinking. Patient states EMS was called because she is still drunk. Patient states that she only had a few drinks. Patient states she fell off a chair and skinned her knees while trying to get up. Patient states the pain is bad. Patient denies suicidal and homicidal ideations. Patient speech is slurred. MD Complaint: alcohol intoxication Last Drink: just [employer] Chronic Alcohol Use: Yes Previous Visits for Alcohol Intoxication?: Yes Recent Trauma: Yes (Abrasions on bilateral lower extremities) Associated Symptoms: denies: nausea, vomiting, syncope, seizure, diaphoresis, tremors, abdominal pain, hematemesis, melena, depression, suicidality Treatments Prior to Arrival: none - Related Data Previous Rx's Medication Instructions Recorded Last Taken Type oxyCODONE /ACETAMINOPHEN [Percocet 1 tab PO Q6H PRN #30 tablet 08/20/19 Unknown Rx 5/325 mg] Acetaminophen [Tylenol] 325 mg PO Q6H PRN #20 capsule 12/21/19 Unknown Rx Ondansetron [Zofran Odt] 4 mg PO Q8HR PRN #20 tab.rapdis 12/21/19 Unknown Rx Butalb/Acetaminophen/Caffeine 1 cap PO Q6HR PRN #5 cap 04/22/20 Unknown Rx [Fioricet 50-300-40 mg CAP] Allergies Allergy/AdvReac Type Severity Reaction Status Date / Time latex Allergy Anaphylaxis Verified 04/22/20 11:47 tramadol [From Ultram] Allergy Unknown Verified 04/22/20 11:47 haloperidol [From Haldol] AdvReac Shortness Verified 04/22/20 11:47 of Breath ketorolac [From Toradol] AdvReac Seizure Verified 04/22/20 11:47 prochlorperazine AdvReac Unknown Verified 04/22/20 11:47 [From Compazine] ED Review of Systems ROS: Stated complaint: ETOH Other details as noted in HPI Comment: All other systems reviewed and negative ED Past Medical Hx - Past Medical History Previous Medical History?: Yes Hx Deep Vein Thrombosis: No Hx Liver Disease: Yes (Hep. C) Hx Renal Disease: Yes (Current problem: Lt Pylonephritis. Septic) Hx Psychiatric Treatment: Yes (Bi Polar) - Surgical History Past Surgical History?: Yes Hx Pacemaker: No Hx Internal Defibrillator: No Additional Surgical History: Eye surgery, blind in right eye. Left Nephrectomy - Family History Family history: no significant - Social History Smoking Status: Current Every Day Smoker Substance Use Type: Alcohol, Marijuana - Medications Home Medications: Home Medications Medication Instructions Recorded Confirmed Last Taken Type oxyCODONE /ACETAMINOPHEN [Percocet 1 tab PO Q6H PRN #30 tablet 08/20/19 Unknown Rx 5/325 mg] Acetaminophen [Tylenol] 325 mg PO Q6H PRN #20 capsule 12/21/19 Unknown Rx Ondansetron [Zofran Odt] 4 mg PO Q8HR PRN #20 tab.rapdis 12/21/19 Unknown Rx Butalb/Acetaminophen/Caffeine 1 cap PO Q6HR PRN #5 cap 04/22/20 Unknown Rx [Fioricet 50-300-40 mg CAP] ED Physical Exam - General Limitations: No Limitations General appearance: alert, in no apparent distress, appears intoxicated - Head Head exam: Present: atraumatic, normocephalic - Eye Eye exam: Present: normal appearance, PERRL Pupils: Present: normal accommodation - ENT ENT exam: Present: mucous membranes moist - Neck Neck exam: Present: normal inspection - Respiratory Respiratory exam: Present: normal lung sounds bilaterally. Absent: respiratory distress, wheezes, rales - Cardiovascular Cardiovascular Exam: Present: regular rate, normal rhythm. Absent: systolic murmur, diastolic murmur, rubs, gallop - GI/Abdominal GI/Abdominal exam: Present: soft, normal bowel sounds. Absent: distended, tenderness, guarding - Extremities Exam Extremities exam: Present: normal inspection - Back Exam Back exam: Present: normal inspection - Neurological Exam Neurological exam: Present: alert, oriented X3 - Psychiatric Psychiatric exam: Present: normal affect, normal mood - Skin Skin exam: Present: warm, dry, intact, normal color. Absent: rash ED Course Vital Signs 04/23/20 04/23/20 04/23/20 00:13 00:30 01:01 Temperature 97.8 F Pulse Rate 76 64 Respiratory 18 18 13 Rate Blood Pressure 108/74 98/60 Blood Pressure [Right] O2 Sat by Pulse 100 100 Oximetry 04/23/20 04/23/20 04/23/20 02:08 02:24 02:45 Temperature Pulse Rate 63 Respiratory 16 18 Rate Blood Pressure 104/81 Blood Pressure 98/65 [Right] O2 Sat by Pulse 100 100 Oximetry - Reevaluation(s) Reevaluation #1: I discussed all results and clinical findings with patient. I discussed plan of care with patient. Patient agrees with plan of care. Patient is stable for discharge. Patient will be discharged home. Patient given discharge instruct ions. Patient voiced understanding of discharge instructions. 04/23/20 04:23 ED Medical Decision Making - Lab Data Result diagrams: 04/23/20 00:59 04/23/20 00:59 - Radiology Data Radiology results: report reviewed, image reviewed interpreted by me: EXAMINATION: Bilateral knee radiograph, 2 views CLINICAL INFORMATION: Bilateral knee pain. No history of trauma is given. COMPARISON: No relevant prior studies are available for comparison. FINDINGS: Evaluation is somewhat limited secondary to patient positioning. There is no evidence of acute bony fracture or focal soft tissue swelling. No significant bony degenerative changes noted. - Medical Decision Making Patient is a 44-year-old female that presents emergency room for acute intoxication and abrasions to her bilateral knees and fall. Patient complained of knee pain. Patient had a x-ray of her bilateral knees and was negative for acute findings. Patient's labs were essentially unremarkable except for elevated blood alcohol. Patient was given a banana bag and saline and her alcohol improved. Patient's alcohol level dropped below the clinical and legal limit. Patient is clinically and legally sober and is stable for discharge. - Differential Diagnosis Knee pain, fall, acute intoxication. Critical care attestation.: If time is entered above; I have spent that time in minutes in the direct care of this critically ill patient, excluding procedure time. ED Disposition Clinical Impression: Abrasion of knee, bilateral Acute alcohol intoxication Qualifiers: Complication of substance-induced condition: uncomplicated Qualified Code(s): F10.920 - Alcohol use, unspecified with intoxication, uncomplicated Knee pain, bilateral Qualifiers: Chronicity: acute Qualified Code(s): M25.561 - Pain in right knee Disposition: DC-01 TO HOME OR SELFCARE Is pt being admited?: No Does the pt Need Aspirin: No Condition: Stable Instructions: Alcohol Intoxication (ED), Gastritis (ED), At-Risk Alcohol Use (ED), Knee Pain (ED), Abrasion (ED) Additional Instructions: Patient to follow-up with primary care in 2 to 3 days. Patient to follow-up with orthopedist in 2 to 3 days. Patient to rest. Patient to increase water. Patient to avoid strenuous exercise or heavy lifting until cleared by orthopedist. Patient to do wound care on her abrasions and watch for signs of infection. Patient to keep sites clean and dry. Patient to take Tylenol or ibuprofen as needed for pain. Patient to avoid alcohol intake. Patient to return to the ER if condition worsens, changes or new symptoms arise. Referrals: PRIMARY CARE, [Primary Care Provider] - 2-3 Days Time of Disposition: 04:26
[2020-04-23] MEDS ORDERED: THIAMINE 100 MG TAB PO ONE (01:00)
[2020-04-23 01:21] LABS: Basophils # (Auto) 0.1 K/mm3 (0.0-0.1); Eosinophils # (Auto) 0.1 K/mm3 (0.0-0.4); Eosinophils % (Auto) 2.1 % (0.0-4.3); Hematocrit 46.7 % (30.3-42.9); Lymphocytes # (Auto) 1.7 K/mm3 (1.2-5.4); Lymphocytes % (Auto) 28.8 % (13.4-35.0); Mean Corpuscular HGB Conc 32 % (30-34); Mean Corpuscular Volume 96 fl (79-97); Monocytes # (Auto) 0.4 K/mm3 (0.0-0.8); Monocytes % (Auto) 7.6 % (0.0-7.3); Platelet Count 178 K/mm3 (140-440); Red Blood Count 4.86 M/mm3 (3.65-5.03); Red Cell Distribution Width 13.8 % (13.2-15.2)
[2020-04-23 01:44] LABS: Albumin 4.6 g/dL (3.9-5); Calcium 9.4 mg/dL (8.4-10.2)
[2020-04-23] MEDS ORDERED: IBUPROFEN 800 MG TAB PO ONE (02:05)
[2020-04-23] MEDS ORDERED: IBUPROFEN 800 MG TAB ONE (02:06)
[2020-04-23 05:06] VITALS: BP 97/51
== END 2020-04-23 05:00 | disposition home or self-care (01) ==
LOC: ED 23:59
DX: S80.212A Abrasion, left knee, initial encounter (principal); S80.211A Abrasion, right knee, initial encounter; F10.129 Alcohol abuse with intoxication, unspecified; F31.9 Bipolar disorder, unspecified; F17.200 Nicotine dependence, unspecified, uncomplicated; F12.10 Cannabis abuse, uncomplicated; Z87.448 Personal history of other diseases of urinary system; Z98.890 Other specified postprocedural states; Z79.899 Other long term (current) drug therapy; Z91.040 Latex allergy status; Z88.8 Allergy status to other drugs, medicaments and biological substances; X58.XXXA Exposure to other specified factors, initial encounter; Y93.89 Activity, other specified; Y92.89 Other specified places as the place of occurrence of the external cause; Y99.8 Other external cause status
CPT/HCPCS: 36415; 73560; 80053; 85025; 96365; 96366; 99284; J3411; J7030; 80048; 80320; 82962; 90471; 90714; A6250; G0480

== ENCOUNTER 2020-04-30 09:28 | Emergency (ER) | payer MEDICAID ==
[2020-04-30 10:19] LABS: Amphetamine Screen,Urine PRESUMPTIVE NEGATIVE; Benzodiazepines Screen,Urine PRESUMPTIVE NEGATIVE; Cannabinoid Screen,Urine PRESUMPTIVE NEGATIVE; Methadone Screen,Urine PRESUMPTIVE NEGATIVE; Opiate Screen,Urine PRESUMPTIVE NEGATIVE
--- NOTE | 2020-04-30 10:33 | Emergency Department Report ---
HPI - General Chief Complaint: Fall PUI?: No Time Seen by Provider: 04/30/20 10:21 - HPI HPI: Room 24 The patient is a 44-year-old female present with a chief complaint of right lower extremity pain after fall. The patient states earlier this morning she fell down a hill injuring her neck and right lower extremity. Patient states she did lose consciousness. Patient sounds intoxicated and states she took 2 of her Klonopin this morning ED Past Medical Hx - Past Medical History Previous Medical History?: Yes Hx Liver Disease: Yes (Hep. C) Hx Renal Disease: Yes (Current problem: Lt Pylonephritis. Septic) Hx Psychiatric Treatment: Yes ([facility]) - Surgical History Additional Surgical History: Eye surgery, blind in right eye. Left Nephrectomy - Family History Family history: no significant - Social History Smoking Status: Current Every Day Smoker Substance Use Type: None (Denies illicit drug use) - Medications Home Medications: Home Medications Medication Instructions Recorded Confirmed Last Taken Type oxyCODONE /ACETAMINOPHEN [Percocet 1 tab PO Q6H PRN #30 tablet 08/20/19 Unknown Rx 5/325 mg] Acetaminophen [Tylenol] 325 mg PO Q6H PRN #20 capsule 12/21/19 Unknown Rx Ondansetron [Zofran Odt] 4 mg PO Q8HR PRN #20 tab.rapdis 12/21/19 Unknown Rx Butalb/Acetaminophen/Caffeine 1 cap PO Q6HR PRN #5 cap 04/22/20 Unknown Rx [Fioricet 50-300-40 mg CAP] Ibuprofen [Motrin 800 MG tab] 800 mg PO Q8HR PRN #20 tablet 04/30/20 Unknown Rx ED Review of Systems ROS: Stated complaint: LEG PAIN,ABRAISON,AMS Other details as noted in HPI Constitutional: no symptoms reported Respiratory: no symptoms reported Endocrine: no symptoms reported Musculoskeletal: arthralgia Physical Exam - Physical Exam Vital Signs: Vital Signs 04/30/20 09:32 Temperature 98.0 F Pulse Rate 79 Respiratory 16 Rate Blood Pressure 109/70 O2 Sat by Pulse 100 Oximetry Physical Exam: GENERAL: The patient is well-developed well-nourished female lying on stretcher. Patient sounds intoxicated HEENT: Normocephalic. Atraumatic. Extraocular motions are intact. Patient has moist mucous membranes. NECK: Supple. Midline tenderness but no axial step-off CHEST/LUNGS: There is no respiratory distress noted. HEART/CARDIOVASCULAR: Regular. There is no tachycardia. 2+ right DP ABDOMEN: Abdomen is soft, nontender. Patient has normal bowel sounds. There is no abdominal distention. SKIN: There is no rash. There is no edema. There is no diaphoresis. Abrasion to right knee. Bruising to anterolateral aspect of the right tib-fib NEURO: The patient is awake, alert, and oriented. The patient is cooperative. The patient has no focal neurologic deficits. The patient sounds intoxicated when talking MUSCULOSKELETAL: There is tenderness of the right tib-fib ED Course Vital Signs 04/30/20 09:32 Temperature 98.0 F Pulse Rate 79 Respiratory 16 Rate Blood Pressure 109/70 O2 Sat by Pulse 100 Oximetry - Reevaluation(s) Reevaluation #1: 04/30/20 15:58 Orthostatics discussed with nurse Remedios- patient normotensive ED Medical Decision Making - Lab Data Result diagrams: 04/30/20 12:18 04/30/20 12:18 Laboratory Tests 04/30/20 04/30/20 04/30/20 09:59 09:59 12:18 WBC 8.2 RBC 4.17 Hgb 13.1 Hct 39.6 MCV 95 MCH 31 MCHC 33 RDW 13.2 Plt Count 166 Lymph % (Auto) 25.9 Luna % (Auto) 8.1 H Eos % (Auto) 1.5 Baso % (Auto) 0.9 Lymph # 2.1 Luna # 0.7 Eos # 0.1 Baso # 0.1 Seg Neutrophils % 63.6 Seg Neutrophils # 5.2 Sodium Potassium Chloride Carbon Dioxide Anion Gap BUN Creatinine Estimated GFR BUN/Creatinine Ratio Glucose Calcium Total Bilirubin AST ALT Alkaline Phosphatase Total Protein Albumin Albumin/Globulin Ratio Urine Opiates Screen Presumptive negative Urine Methadone Screen Presumptive negative Ur Barbiturates Screen Presumptive negative Ur Phencyclidine Scrn Presumptive negative Ur Amphetamines Screen Presumptive negative U Benzodiazepines Scrn Presumptive negative Urine Cocaine Screen Presumptive positive U Marijuana (THC) Screen Presumptive negative Drugs of Abuse Note Disclamer Plasma/Serum Alcohol < 0.01 04/30/20 12:18 WBC RBC Hgb Hct MCV MCH MCHC RDW Plt Count Lymph % (Auto) Luna % (Auto) Eos % (Auto) Baso % (Auto) Lymph # Luna # Eos # Baso # Seg Neutrophils % Seg Neutrophils # Sodium 136 L Potassium 4.0 Chloride 102.2 Carbon Dioxide 17 L Anion Gap 21 BUN 24 H Creatinine 1.2 Estimated GFR 49 BUN/Creatinine Ratio 20 Glucose 68 Calcium 8.8 Total Bilirubin 0.30 AST 29 ALT 23 Alkaline Phosphatase 61 Total Protein 7.0 Albumin 3.9 Albumin/Globulin Ratio 1.3 Urine Opiates Screen Urine Methadone Screen Ur Barbiturates Screen Ur Phencyclidine Scrn Ur Amphetamines Screen U Benzodiazepines Scrn Urine Cocaine Screen U Marijuana (THC) Screen Drugs of Abuse Note Plasma/Serum Alcohol - Radiology Data Radiology results: report reviewed (Right tib-fib x-ray, CT head, CT cervical spine), image reviewed (Right tib-fib x-ray, CT head, CT cervical spine) interpreted by me: Right tib-fib x-ray-no acute fracture Findings [address] [address] XRay Report Signed Patient: ALIYAH RHODES MR#: [id number] 0 : 1975 Acct:[id number] Age/Sex: 44 / F ADM Date: 04/30/20 Loc: ED Attending Dr: Ordering Physician: ASHER MALONE MD Date of Service: 04/30/20 Procedure(s): XR tibia fibula 2V RT Accession Number(s): [id number] cc: ASHER MALONE MD Fluoro Time In Minutes: Right tibia and fibula, 2 views INDICATION: Pain following fall FINDINGS: The tibia and fibula are intact with no fracture or foreign body seen. Signer Name: Marcelo Recinos MD Signed: 04/30/2020 11:04 AM Workstation Name: [id number] Transcribed By: JM Dictated By: Marcelo Recinos MD Electronically Authenticated By: Marcelo Recinos MD Signed Date/Time: 04/30/20 1104 DD/ 1103 TD/TT: [address] [address] Cat Scan Report Signed Patient: ALIYAH RHODES MR#: [id number] 0 : 1975 Acct:[id number] Age/Sex: 44 / F ADM Date: 04/30/20 Loc: ED Attending Dr: Ordering Physician: ASHER MALONE MD Date of Service: 04/30/20 Procedure(s): CT head/brain wo con Accession Number(s): [id number] cc: ASHER MALONE MD CT HEAD WITHOUT CONTRAST INDICATION / CLINICAL INFORMATION: Trauma. Patient fell. TECHNIQUE: All CT scans at this location are performed using CT dose reduction for ALARA by means of automated exposure control. COMPARISON: Head CT 07/29/2019 FINDINGS: Limitations: Patient was unable to cooperate for positioning and was scanned in an oblique orientation. Patient motion artifact is also noted. This limits evaluation of the middle cranial fossa structures (right more than left). HEMORRHAGE: No evidence of intracranial hemorrhage or extra-axial fluid collection. EXTRA-AXIAL SPACES: Cortical sulci, sylvian fissures and basilar cisterns have an unremarkable appearance. VENTRICULAR SYSTEM: The ventricular system is of normal size and configuration. CEREBRAL PARENCHYMA: No areas of abnormal brain parenchymal attenuation are identified. There is no indication of recent infarction. MIDLINE SHIFT OR HERNIATION: There is no mass effect. CEREBELLUM / BRAINSTEM: Brainstem and cerebellum have an unremarkable appearance. INTRACRANIAL VESSELS:No abnormalities are identified on this noncontrast head CT. ORBITS: visualized portions of the orbits have an unremarkable appearance. SOFT TISSUES of HEAD: No significant abnormality. CALVARIUM: Evaluation of bone windows reveals no abnormalities. PARANASAL SINUSES / MASTOID AIR CELLS: Paranasal sinuses are free from inflammatory muc osal disease. Mastoid air cells are normally pneumatized. ADDITIONAL FINDINGS: None. IMPRESSION: 1. Study is limited by patient motion artifact and difficulties in patient positioning. 2. No acute intracranial abnormality is identified on this limited study.. Signer Name: Elder Dejesus MD Signed: 04/03 11:33 AM Workstation Name: [id number] Transcribed By: Dictated By: Elder Dejesus MD Electronically Authenticated By: Elder Dejesus MD Signed Date/Time: 04/30/20 1133 DD/ 1126 TD/TT: [facility] [address] [place] [address] Cat Scan Report Signed Patient: ALIYAH RHODES MR#: [id number] 0 : 1975 Acct:[id number] Age/Sex: 44 / F ADM Date: 04/30/20 Loc: ED Attending Dr: Ordering Physician: ASHER MALONE MD Date of Service: 04/30/20 Procedure(s): CT cervical spine wo con Accession Number(s): [id number] cc: ASHER MALONE MD CT CERVICAL SPINE WITHOUT CONTRAST INDICATION / CLINICAL INFORMATION: Trauma. Patient fell sustaining neck injury. Neck pain. TECHNIQUE: Axial CT images were obtained through the cervical spine. Sagittal and coronal reformatted images were produced. All CT scans at this location are performed using CT dose reduction for ALARA by means of automated exposure control. COMPARISON: None available. FINDINGS: Patient was scanned in an oblique position due to patient's inability to fully cooperate for the examination. ALIGNMENT: No significant abnormality. There is no indication of traumatic subluxation. VERTEBRAE: No significant abnormality. There is no indication of fracture. DISC SPACES: Advanced disc desiccation is noted at the C5-6 and C6-7 levels were loss of disc height is noted. Reactive changes secondary to degenerative disc disease are seen at inferior endplate C5 and superior endplate C6. Anterior osteophyte formation is seen at both levels. INDIVIDUAL LEVEL ANALYSIS: C2-3:No abnormality. C3-4:No abnormality. C4-5:No abnormality. C5-6: Advanced disc marilu ccation is noted. Anterior osteophyte and mild posterior osteophyte formation are noted. Uncovertebral arthropathy is present bilaterally with mild bilateral neuroforaminal stenosis at the C6 nerve root level. Central spinal canal remains adequate in size. C6-7: Disc desiccation is noted. Anterior osteophyte formation is observed. Mild posterior osteophyte is demonstrated. Bilateral uncovertebral arthropathy is observed. There is mild neuroforaminal narrowing at the C7 nerve root level. C7-T1:No abnormality. CRANIOCERVICAL JUNCTION:No significant abnormality. SPINAL CANAL: Central spinal canal is adequately maintained throughout. PARASPINAL SOFT TISSUES: No significant abnormality. ADDITIONAL FINDINGS: None. LUNG APICES: No significant abnormality of visualized lungs. IMPRESSION: 1. Cervical spondylosis C5-6 and C6-7 levels. 2. No indication of fracture or traumatic subluxation. Signer Name: Elder Dejesus MD Signed: 04/30/2020 11:26 AM Workstation Name: [email or web address] Transcribed By: Dictated By: Elder Dejesus MD Electronically Authenticated By: Elder Dejesus MD Signed Date/Time: 04/30/20 1126 DD/ 1118 TD/TT: - Differential Diagnosis Close head injury, cervical strain, fibula fracture, right leg bruise Critical care attestation.: If time is entered above; I have spent that time in minutes in the direct care of this critically ill patient, excluding procedure time. ED Disposition Clinical Impression: Contusion of right leg Disposition: DC-01 TO HOME OR SELFCARE Is pt being admited?: No Does the pt Need Aspirin: No Condition: Stable Additional Instructions: Return to the emergency department should you develop worsening symptoms, inability to tolerate food or liquids, high fever or any other concerns Prescriptions: Ibuprofen [Motrin 800 MG tab] 800 mg PO Q8HR PRN #20 tablet PRN Reason: Pain, Moderate (4-6) Referrals: PRIMARY CARE, [Primary Care Provider] - 3-5 Days Time of Disposition: 16:00
[2020-04-30 11:05] LABS: Cocaine Screen,Urine PRESUMPTIVE POSITIVE
--- NOTE | 2020-04-30 11:08 | XRay Report ---
Right tibia and fibula, 2 views INDICATION: Pain following fall FINDINGS: The tibia and fibula are intact with no fracture or foreign body seen. Signer Name: Marcelo Recinos MD Signed: 04/30/2020 11:04 AM Workstation Name: [id number]
--- NOTE | 2020-04-30 11:30 | Cat Scan Report ---
CT CERVICAL SPINE WITHOUT CONTRAST INDICATION / CLINICAL INFORMATION: Trauma. Patient fell sustaining neck injury. Neck pain. TECHNIQUE: Axial CT images were obtained through the cervical spine. Sagittal and coronal reformatted images wer e produced. All CT scans at this location are performed using CT dose reduction for ALARA by means of automated exposure control. COMPARISON: None available. FINDINGS: Patient was scanned in an oblique position due to patient's inability to fully cooperate for the exam ination. ALIGNMENT: No significant abnormality. There is no indication of traumatic subluxation. VERTEBRAE: No significant abnormality. There is no indication of fracture. DISC SPACES: Advanced disc desiccation is noted at the C5-6 and C6-7 levels were loss of disc height is noted. Reactive changes secondary to degenerative disc disease are seen at inferior endplate C5 an d superior endplate C6. Anterior osteophyte formation is seen at both levels. INDIVIDUAL LEVEL ANALYSIS: C2-3:No abnormality. C3-4:No abnormality. C4-5:No abnormality. C5-6: Advanced disc desiccation is noted. Anterior osteophyte and mild posterior osteophyte formation are noted. Uncovertebral arthropathy is present bilaterally with mild bilateral neuroforaminal steno sis at the C6 nerve root level. Central spinal canal remains adequate in size. C6-7: Disc desiccation is noted. Anterior osteophyte formation is observed. Mild posterior osteophyte is demonstrated. Bilateral uncovertebral arthropathy is observed. There is mild neuroforaminal narro wing at the C7 nerve root level. C7-T1:No abnormality. CRANIOCERVICAL JUNCTION:No significant abnormality. SPINAL CANAL: Central spinal canal is adequately maintained throughout. PARASPINAL SOFT TISSUES: No significant abnormality. ADDITIONAL FINDINGS: None. LUNG APICES: No significant abnormality of visualized lungs. IMPRESSION: 1. Cervical spondylosis C5-6 and C6-7 levels. 2. No indication of fracture or traumatic subluxation. Signer Name: Elder Dejesus MD Signed: 04/30/2020 11:26 AM Workstation Name: [email or web address]
--- NOTE | 2020-04-30 11:37 | Cat Scan Report ---
CT HEAD WITHOUT CONTRAST INDICATION / CLINICAL INFORMATION: Trauma. Patient fell. TECHNIQUE: All CT scans at this location are performed using CT dose reduction for ALARA by means of automated e xposure control. COMPARISON: Head CT 07/29/2019 FINDINGS: Limitations: Patient was unable to cooperate for positioning and was scanned in an oblique orientatio n. Patient motion artifact is also noted. This limits evaluation of the middle cranial fossa structur es (right more than left). HEMORRHAGE: No evidence of intracranial hemorrhage or extra-axial fluid collection. EXTRA-AXIAL SPACES: Cortical sulci, sylvian fissures and basilar cisterns have an unremarkable appear ance. VENTRICULAR SYSTEM: The ventricular system is of normal size and configuration. CEREBRAL PARENCHYMA: No areas of abnormal brain parenchymal attenuation are identified. There is no i ndication of recent infarction. MIDLINE SHIFT OR HERNIATION: There is no mass effect. CEREBELLUM / BRAINSTEM: Brainstem and cerebellum have an unremarkable appearance. INTRACRANIAL VESSELS:No abnormalities are identified on this noncontrast head CT. ORBITS: visualized portions of the orbits have an unremarkable appearance. SOFT TISSUES of HEAD: No significant abnormality. CALVARIUM: Evaluation of bone windows reveals no abnormalities. PARANASAL SINUSES / MASTOID AIR CELLS: Paranasal sinuses are free from inflammatory mucosal disease. Mastoid air cells are normally pneumatized. ADDITIONAL FINDINGS: None. IMPRESSION: 1. Study is limited by patient motion artifact and difficulties in patient positioning. 2. No acute intracranial abnormality is identified on this limited study.. Signer Name: Elder Dejesus MD Signed: 04/30/2020 11:33 AM Workstation Name: [id number]
[2020-04-30] MEDS ORDERED: SODIUM CHLORIDE 0.9% 1000 ML 1,000 ML IV ONE ×2 (11:44→11:47)
[2020-04-30 13:21] LABS: Basophils # (Auto) 0.1 K/mm3 (0.0-0.1); Basophils % (Auto) 0.9 % (0.0-1.8); Eosinophils # (Auto) 0.1 K/mm3 (0.0-0.4); Eosinophils % (Auto) 1.5 % (0.0-4.3); Hematocrit 39.6 % (30.3-42.9); Hemoglobin 13.1 gm/dl (10.1-14.3); Lymphocytes # (Auto) 2.1 K/mm3 (1.2-5.4); Lymphocytes % (Auto) 25.9 % (13.4-35.0); Mean Corpuscular HGB Conc 33 % (30-34); Mean Corpuscular Volume 95 fl (79-97); Monocytes # (Auto) 0.7 K/mm3 (0.0-0.8); Monocytes % (Auto) 8.1 % (0.0-7.3); Platelet Count 166 K/mm3 (140-440); Red Blood Count 4.17 M/mm3 (3.65-5.03); Red Cell Distribution Width 13.2 % (13.2-15.2)
[2020-04-30 13:24] LABS: Albumin 3.9 g/dL (3.9-5); Calcium 8.8 mg/dL (8.4-10.2)
[2020-04-30 16:30] VITALS: BP 119/76
== END 2020-04-30 16:31 | disposition home or self-care (01) ==
LOC: ED 09:28
DX: S80.11XA Contusion of right lower leg, initial encounter (principal); F31.9 Bipolar disorder, unspecified; F17.200 Nicotine dependence, unspecified, uncomplicated; Z79.899 Other long term (current) drug therapy; Z88.8 Allergy status to other drugs, medicaments and biological substances; Z91.040 Latex allergy status; Z98.890 Other specified postprocedural states; W17.89XA Other fall from one level to another, initial encounter; Y93.89 Activity, other specified; Y92.89 Other specified places as the place of occurrence of the external cause; Y99.8 Other external cause status
CPT/HCPCS: 36415; 70450; 72125; 73590; 80053; 80307; 85025; 99285; J7030; 80320; G0480

== ENCOUNTER 2020-08-31 20:27 | Emergency (ER) | payer MEDICAID ==
[2020-08-31 22:34] LABS: Basophils # (Auto) 0.1 K/mm3 (0.0-0.1); Basophils % (Auto) 1.2 % (0.0-1.8); Eosinophils # (Auto) 0.3 K/mm3 (0.0-0.4); Eosinophils % (Auto) 2.4 % (0.0-4.3); Hematocrit 44.1 % (30.3-42.9); Hemoglobin 14.5 gm/dl (10.1-14.3); Lymphocytes # (Auto) 2.8 K/mm3 (1.2-5.4); Lymphocytes % (Auto) 26.2 % (13.4-35.0); Mean Corpuscular HGB Conc 33 % (30-34); Mean Corpuscular Volume 96 fl (79-97); Monocytes % (Auto) 9.1 % (0.0-7.3); Platelet Count 213 K/mm3 (140-440); Red Blood Count 4.61 M/mm3 (3.65-5.03); Red Cell Distribution Width 13.8 % (13.2-15.2)
[2020-08-31 22:49] LABS: Albumin 4.1 g/dL (3.9-5); Calcium 9.6 mg/dL (8.4-10.2)
[2020-09-01] MEDS ORDERED: THIAMINE 100 MG, FOLIC ACID 1 MG, MULTIPLE VITAMIN INJ, ADULT 10 ML in SODIUM CHLORIDE ... IV ONE (00:14)
[2020-09-01] MEDS ORDERED: SODIUM CHLORIDE 0.9% 1000 ML 1,000 ML IV ONE (00:14)
--- NOTE | 2020-09-01 01:07 | Emergency Department Report ---
ED Abdominal Pain HPI - General Chief Complaint: Abdominal Pain Stated Complaint: ABDOMINAL PAIN Time Seen by Provider: 09/01/20 00:12 Source: patient Mode of arrival: Ambulatory Limitations: No Limitations - History of Present Illness Initial Comments: 45-year-old female with a past medical history of hepatitis C, bipolar disorder, history of previous nephrectomy due to pyelonephritis, chronic abdominal pain and as per medical record alcohol and cocaine abuse presents to the hospital with complaints of ongoing abdominal pain and diarrhea. Patient is had abdominal pain for 4 to 5 weeks as well as diarrhea. She says she has 4-5 bowel movements per day. Positive nausea. Last vomited yesterday. Patient states she has not had anything to eat in the last 2 days. patient appears intoxicated and slurring her words. She states that she does not drink or use drugs but previous alcohol level and UDS in the past show otherwise. Patient states she has been seen by urologist Dr. Lemons regarding her pain he was recommended patient see a chronic automobile painter always - Related Data Previous Rx's Medication Instructions Recorded Last Taken Type oxyCODONE /ACETAMINOPHEN [Percocet 1 tab PO Q6H PRN #30 tablet 08/20/19 Unknown Rx 5/325 mg] Acetaminophen [Tylenol] 325 mg PO Q6H PRN #20 capsule 12/21/19 Unknown Rx Ondansetron [Zofran Odt] 4 mg PO Q8HR PRN #20 tab.rapdis 12/21/19 Unknown Rx Butalb/Acetaminophen/Caffeine 1 cap PO Q6HR PRN #5 cap 04/22/20 Unknown Rx [Fioricet 50-300-40 mg CAP] Ibuprofen [Motrin 800 MG tab] 800 mg PO Q8HR PRN #20 tablet 04/30/20 Unknown Rx HYDROcodone/APAP 5-325 [[place] 1 each PO Q6HR PRN #8 tablet 09/01/20 Unknown Rx 5/325] Loperamide [Imodium] 2 mg PO Q2HR PRN #12 capsule 09/01/20 Unknown Rx Nitrofurantoin [place]/M-Cryst 100 mg PO Q12HR #10 capsule 09/01/20 Unknown Rx [Macrobid CAP] Ondansetron [Zofran Odt] 4 mg PO Q8HR #20 tab.rapdis 09/01/20 Unknown Rx Allergies Allergy/AdvReac Type Severity Reaction Status Date / Time latex Allergy Anaphylaxis Verified 04/22/20 11:47 tramadol [From Ultram] Allergy Unknown Verified 04/22/20 11:47 haloperidol [From Haldol] AdvReac Shortness Verified 04/22/20 11:47 of Breath ketorolac [From Toradol] AdvReac Seizure Verified 04/22/20 11:47 prochlorperazine AdvReac Unknown Verified 04/22/20 11:47 [From Compazine] ED Review of Systems ROS: Stated complaint: ABDOMINAL PAIN Other details as noted in HPI Comment: All other systems reviewed and negative ED Past Medical Hx - Past Medical History Hx Deep Vein Thrombosis: No Hx Liver Disease: Yes (Hep. C) Hx Renal Disease: Yes (Current problem: Lt Pylonephritis. Septic) Hx Psychiatric Treatment: Yes (Bi Polar) - Surgical History Hx Pacemaker: No Hx Internal Defibrillator: No Additional Surgical History: Eye surgery, blind in right eye. Left Nephrectomy - Social History Smoking Status: Current Every Day Smoker Substance Use Type: Alcohol - Medications Home Medications: Home Medications Medication Instructions Recorded Confirmed Last Taken Type oxyCODONE /ACETAMINOPHEN [Percocet 1 tab PO Q6H PRN #30 tablet 08/20/19 Unknown Rx 5/325 mg] Acetaminophen [Tylenol] 325 mg PO Q6H PRN #20 capsule 12/21/19 Unknown Rx Ondansetron [Zofran Odt] 4 mg PO Q8HR PRN #20 tab.rapdis 12/21/19 Unknown Rx Butalb/Acetaminophen/Caffeine 1 cap PO Q6HR PRN #5 cap 04/22/20 Unknown Rx [Fioricet 50-300-40 mg CAP] Ibuprofen [Motrin 800 MG tab] 800 mg PO Q8HR PRN #20 tablet 04/30/20 Unknown Rx HYDROcodone/APAP 5-325 [[place] 1 each PO Q6HR PRN #8 tablet 09/01/20 Unknown Rx 5/325] Loperamide [Imodium] 2 mg PO Q2HR PRN #12 capsule 09/01/20 Unknown Rx Nitrofurantoin [place]/M-Cryst 100 mg PO Q12HR #10 capsule 09/01/20 Unknown Rx [Macrobid CAP] Ondansetron [Zofran Odt] 4 mg PO Q8HR #20 tab.rapdis 09/01/20 Unknown Rx ED Physical Exam - General Limitations: No Limitations - Other Other exam information: General: No acute distress, disheveled with mascara running down face, appears intoxicated Head: Atraumatic Eyes: normal appearance ENT: Moist mucous membranes Neck: Normal appearance, no midline tenderness Chest: Clear to auscultation bilaterally CV: Regular rate and rhythm Abdomen: Soft, normal bowel sounds, diffuse abdominal tenderness, left upper quadrant abdominal scar, no rebound or guard Back: Normal inspection Extremity: Normal inspection, full range of motion Neuro: Alert O x 3, no facial asymmetry, slurred speech appears, no gross motor sensory deficit Psych: Appropriate behavior Skin: No rash ED Course Vital Signs 08/31/20 09/01/20 09/01/20 20:43 02:08 02:38 Temperature 97.9 F Pulse Rate 92 H Respiratory 18 18 18 Rate Blood Pressure 91/68 Blood Pressure [Left] O2 Sat by Pulse 100 Oximetry 09/01/20 09/01/20 03:45 03:51 Temperature 97.6 F Pulse Rate 60 Respiratory 18 18 Rate Blood Pressure Blood Pressure 108/74 [Left] O2 Sat by Pulse 97 Oximetry - Reevaluation(s) Reevaluation #1: 09/01/20 03:26 Patient did have an IV placed by RN which she then pulled out. I attempted a left EJ but patient has very small jugular veins as well. I was admitted place a 22-gauge in the left EJ. Nurse instructed to give p.o. fluids since she is not vomiting in the ED ED Medical Decision Making - Lab Data Result diagrams: 08/31/20 22:03 08/31/20 22:03 Lab Results 08/31/20 08/31/20 08/31/20 Range/Units 22:03 22:03 22:03 WBC 10.5 (4.5-11.0) K/mm3 RBC 4.61 (3.65-5.03) M/mm3 Hgb 14.5 H (10.1-14.3) gm/dl Hct 44.1 H (30.3-42.9) % MCV 96 (79-97) fl MCH 31 (28-32) pg MCHC 33 (30-34) % RDW 13.8 (13.2-15.2) % Plt Count 213 (140-440) K/mm3 Lymph % (Auto) 26.2 (13.4-35.0) % [place] % (Auto) 9.1 H (0.0-7.3) % Eos % (Auto) 2.4 (0.0-4.3) % Baso % (Auto) 1.2 (0.0-1.8) % Lymph # (Auto) 2.8 (1.2-5.4) K/mm3 [place] # (Auto) 1.0 H (0.0-0.8) K/mm3 Eos # (Auto) 0.3 (0.0-0.4) K/mm3 Baso # (Auto) 0.1 (0.0-0.1) K/mm3 Seg Neutrophils % 61.1 (40.0-70.0) % Seg Neutrophils # 6.4 (1.8-7.7) K/mm3 Sodium 135 L (137-145) mmol/L Potassium 3.9 (3.6-5.0) mmol/L Chloride 103.7 (98-107) mmol/L Carbon Dioxide 20 L (22-30) mmol/L Anion Gap 15 mmol/L BUN 34 H (7-17) mg/dL Creatinine 1.6 H (0.6-1.2) mg/dL Estimated GFR 35 ml/min BUN/Creatinine Ratio 21 % Glucose 74 (65-100) mg/dL Calcium 9.6 (8.4-10.2) mg/dL Magnesium (1.7-2.3) mg/dL Total Bilirubin 0.60 (0.1-1.2) mg/dL AST 21 (5-40) units/L ALT 19 (7-56) units/L Alkaline Phosphatase 55 (35-129) units/L Total Creatine Kinase (30-135) units/L Total Protein 8.0 (6.3-8.2) g/dL Albumin 4.1 (3.9-5) g/dL Albumin/Globulin Ratio 1.1 % Lipase (13-60) units/L HCG, Qual Negative (Negative) Urine Color (Yellow) Urine Turbidity (Clear) Urine pH (5.0-7.0) Ur Specific [place] (1.003-1.030) Urine Protein (Negative) mg/dL Urine Glucose (UA) (Negative) mg/dL Urine Ketones (Negative) mg/dL Urine Blood (Negative) Urine Nitrite (Negative) Urine Bilirubin (Negative) Urine Urobilinogen (<2.0) mg/dL Ur Leukocyte Esterase (Negative) Urine WBC (Auto) (0.0-6.0) /HPF Urine RBC (Auto) (0.0-6.0) /HPF U Epithel Cells (Auto) (0-13.0) /HPF Urine Bacteria (Auto) (Negative) /HPF Hyaline Casts /LPF Urine Mucus /HPF Urine Opiates Screen Urine Methadone Screen Ur Barbiturates Screen Ur Phencyclidine Scrn Ur Amphetamines Screen U Benzodiazepines Scrn Urine Cocaine Screen U Marijuana (THC) Screen Plasma/Serum Alcohol (0-0.07) % 08/31/20 09/01/20 09/01/20 Range/Units 22:03 00:46 00:46 WBC (4.5-11.0) K/mm3 RBC (3.65-5.03) M/mm3 Hgb (10.1-14.3) gm/dl Hct (30.3-42.9) % MCV (79-97) fl MCH (28-32) pg MCHC (30-34) % RDW (13.2-15.2) % Plt Count (140-440) K/mm3 Lymph % (Auto) (13.4-35.0) % [place] % (Auto) (0.0-7.3) % Eos % (Auto) (0.0-4.3) % Baso % (Auto) (0.0-1.8) % Lymph # (Auto) (1.2-5.4) K/mm3 [place] # (Auto) (0.0-0.8) K/mm3 Eos # (Auto) (0.0-0.4) K/mm3 Baso # (Auto) (0.0-0.1) K/mm3 Seg Neutrophils % (40.0-70.0) % Seg Neutrophils # (1.8-7.7) K/mm3 Sodium (137-145) mmol/L Potassium (3.6-5.0) mmol/L Chloride (98-107) mmol/L Carbon Dioxide (22-30) mmol/L Anion Gap mmol/L BUN (7-17) mg/dL Creatinine (0.6-1.2) mg/dL Estimated GFR ml/min BUN/Creatinine Ratio % Glucose (65-100) mg/dL Calcium (8.4-10.2) mg/dL Magnesium 2.20 (1.7-2.3) mg/dL Total Bilirubin (0.1-1.2) mg/dL AST (5-40) units/L ALT (7-56) units/L Alkaline Phosphatase (35-129) units/L Total Creatine Kinase (30-135) units/L Total Protein (6.3-8.2) g/dL Albumin (3.9-5) g/dL Albumin/Globulin Ratio % Lipase 43 (13-60) units/L HCG, Qual (Negative) Urine Color (Yellow) Urine Turbidity (Clear) Urine pH (5.0-7.0) Ur Specific [place] (1.003-1.030) Urine Protein (Negative) mg/dL Urine Glucose (UA) (Negative) mg/dL Urine Ketones (Negative) mg/dL Urine Blood (Negative) Urine Nitrite (Negative) Urine Bilirubin (Negative) Urine Urobilinogen (<2.0) mg/dL Ur Leukocyte Esterase (Negative) Urine WBC (Auto) (0.0-6.0) /HPF Urine RBC (Auto) (0.0-6.0) /HPF U Epithel Cells (Auto) (0-13.0) /HPF Urine Bacteria (Auto) (Negative) /HPF Hyaline Casts /LPF Urine Mucus /HPF Urine Opiates Screen Urine Methadone Screen Ur Barbiturates Screen Ur Phencyclidine Scrn Ur Amphetamines Screen U Benzodiazepines Scrn Urine Cocaine Screen U Marijuana (THC) Screen Plasma/Serum Alcohol < 0.01 (0-0.07) % 09/01/20 09/01/20 09/01/20 Range/Units 00:46 04:49 04:49 WBC (4.5-11.0) K/mm3 RBC (3.65-5.03) M/mm3 Hgb (10.1-14.3) gm/dl Hct (30.3-42.9) % MCV (79-97) fl MCH (28-32) pg MCHC (30-34) % RDW (13.2-15.2) % Plt Count (140-440) K/mm3 Lymph % (Auto) (13.4-35.0) % [place] % (Auto) (0.0-7.3) % Eos % (Auto) (0.0-4.3) % Baso % (Auto) (0.0-1.8) % Lymph # (Auto) (1.2-5.4) K/mm3 [place] # (Auto) (0.0-0.8) K/mm3 Eos # (Auto) (0.0-0.4) K/mm3 Baso # (Auto) (0.0-0.1) K/mm3 Seg Neutrophils % (40.0-70.0) % Seg Neutrophils # (1.8-7.7) K/mm3 Sodium (137-145) mmol/L Potassium (3.6-5.0) mmol/L Chloride (98-107) mmol/L Carbon Dioxide (22-30) mmol/L Anion Gap mmol/L BUN (7-17) mg/dL Creatinine (0.6-1.2) mg/dL Estimated GFR ml/min BUN/Creatinine Ratio % Glucose (65-100) mg/dL Calcium (8.4-10.2) mg/dL Magnesium (1.7-2.3) mg/dL Total Bilirubin (0.1-1.2) mg/dL AST (5-40) units/L ALT (7-56) units/L Alkaline Phosphatase (35-129) units/L Total Creatine Kinase 43 (30-135) units/L Total Protein (6.3-8.2) g/dL Albumin (3.9-5) g/dL Albumin/Globulin Ratio % Lipase (13-60) units/L HCG, Qual (Negative) Urine Color Yellow (Yellow) Urine Turbidity Cloudy (Clear) Urine pH 6.0 (5.0-7.0) Ur Specific [place] 1.020 (1.003-1.030) Urine Protein 30 mg/dl (Negative) mg/dL Urine Glucose (UA) Neg (Negative) mg/dL Urine Ketones Tr (Negative) mg/dL Urine Blood Sm (Negative) Urine Nitrite Neg (Negative) Urine Bilirubin Neg (Negative) Urine Urobilinogen < 2.0 (<2.0) mg/dL Ur Leukocyte Esterase Lg (Negative) Urine WBC (Auto) 158.0 H (0.0-6.0) /HPF Urine RBC (Auto) 75.0 (0.0-6.0) /HPF U Epithel Cells (Auto) 18.0 H (0-13.0) /HPF Urine Bacteria (Auto) 4+ (Negative) /HPF Hyaline Casts 8 /LPF Urine Mucus 2+ /HPF Urine Opiates Screen Presumptive negative Urine Methadone Screen Presumptive negative Ur Barbiturates Screen Presumptive negative Ur Phencyclidine Scrn Presumptive negative Ur Amphetamines Screen Presumptive negative U Benzodiazepines Scrn Presumptive positive Urine Cocaine Screen Presumptive positive U Marijuana (THC) Screen Presumptive positive Plasma/Serum Alcohol (0-0.07) % - Radiology Data Radiology results: report reviewed CT ABDOMEN AND PELVIS WITHOUT CONTRAST HISTORY: Abdominal pain and diarrhea COMPARISON: Prior CT on 12/21/2019. TECHNIQUE: Routine abdominal and pelvic CT exam performed without contrast. Lack of intravenous contrast limits evaluation of the vascular and solid organs.. All CT scans at this location are performed using CT dose reduction for ALARA by means of automated exposure control. FINDINGS: CT ABDOMEN: Lung Bases: No significant abnormality. Liver: No significant abnormality. Biliary: No significant abnormality. Spleen: No significant abnormality. Unenlarged. Pancreas: No significant abnormality. Adrenals: No significant abnormality. Kidneys: Left kidney is surgically absent. Right kidney appears normal. Lymphatics: No lymphadenopathy. Vasculature: No significant abnormality. Bowel/Peritoneum: No significant abnormality. No free air. No free fluid. Normal appendix. CT PELVIC: : No significant abnormality. Lymphatics: No lymphadenopathy. Osseous Structures: No aggressive appearing osseous lesions. Additional Findings: None IMPRESSION: 1. No acute findings or adverse change from prior exams. - Medical Decision Making Patient presents for chronic pain with intermittent nausea vomiting. Labs reveal dehydration with mild renal insufficiency. Patient did had a IV line but she apparently cannot move around in the bed and putting her hands between her legs causing IV line to dislodge. Patient has very poor venous access if further attempts at securing a peripheral line were unsuccessful. CT abdomen pelvis does not show any acute findings. Labs unremarkable. UA shows possible infection however, this is likely due to contamination due to increased epithelial cells. Patient is extremely sedated and chronically takes clonazepam as indicated below from the [place] prescription monitoring site. She received morphine, [place], and Zofran here in the ED. Patient was able to drink a pitcher of water to drink as well as several cups of cranberry juice and is not having any vomiting in the ED and states that vomiting resolved yesterday. UDS positive for marijuana, cocaine, and benzos. Pt has chronic substance abuse and Benzo dependence. NSAIDs were not be prescribed due to renal insufficiency. CK within normal range. Patient has already been advised to go to pain management by her urologist. Patient will be discharged home with Zofran and a few tabs [place] to help painage pain. Continued p.o. hydration and follow up encouraged 08/29/2020 1 08/29/2020 CLONAZEPAM 2 MG TABLET 30.0 30 ED SHRADDHA [id number] GATITO ([id number]) 0 [place] 08/02/2020 2 07/04/2020 CLONAZEPAM 2 MG TABLET 30.0 30 ED SHRADDHA [id number] HEADL ([id number]) 0 [place] Critical Care Time: No Critical care attestation.: If time is entered above; I have spent that time in minutes in the direct care of this critically ill patient, excluding procedure time. ED Disposition Clinical Impression: Dehydration, Mild renal insufficiency, Cocaine abuse, Chronic prescription benzodiazepine use, Marijuana use, UTI (urinary tract infection), Chronic abdominal pain, Chronic diarrhea Disposition: TO HOME OR SELFCARE Is pt being admited?: No Does the pt Need Aspirin: No Condition: Stable Instructions: Dehydration (ED), Urinary Tract Infection in Women (ED), Chronic Pain (ED), Chronic Diarrhea (ED), Impaired Kidney Function (ED) Additional Instructions: Take the medication as prescribed. Follow-up with your doctor or doctor/clinic provided. Return if symptoms worsen as indicated by your discharge instructions. It is very important that you continue to drink plenty of fluids and stay hydrated. Prescriptions: Loperamide [Imodium] 2 mg PO Q2HR PRN #12 capsule PRN Reason: Diarrhea Nitrofurantoin [place]/M-Cryst [Macrobid CAP] 100 mg PO Q12HR #10 capsule HYDROcodone/APAP 5-325 [[place] 5/325] 1 each PO Q6HR PRN #8 tablet PRN Reason: Pain Ondansetron [Zofran Odt] 4 mg PO Q8HR #20 tab.rapdis Referrals: PRIMARY CARE, [Primary Care Provider] - 3-5 Days [facility] [place], [Staff Physician] - 2-3 Days (virtual assistant for advertisers )
[2020-09-01] MEDS ORDERED: ONDANSETRON 4 MG/2 ML INJ IV ONE (01:57)
[2020-09-01] MEDS ORDERED: MORPHINE 4 MG/1 ML INJ IV ONE (01:57)
[2020-09-01] MEDS ORDERED: HYDROcodone/ACETAMINOPHEN 5-325 MG TAB PO ONE (03:48)
[2020-09-01] MEDS ORDERED: HYDROcodone/ACETAMINOPHEN 5-325 MG TAB ONE (03:51)
--- NOTE | 2020-09-01 03:52 | Cat Scan Report ---
CT ABDOMEN AND PELVIS WITHOUT CONTRAST HISTORY: Abdominal pain and diarrhea COMPARISON: Prior CT on 12/21/2019. TECHNIQUE: Routine abdominal and pelvic CT exam performed without contrast. Lack of intravenous cont rast limits evaluation of the vascular and solid organs.. All CT scans at this location are performed using CT dose reduction for ALARA by means of automated exposure control. FINDINGS: CT ABDOMEN: Lung Bases: No significant abnormality. Liver: No significant abnormality. Biliary: No significant abnormality. Spleen: No significant abnormality. Unenlarged. Pancreas: No significant abnormality. Adrenals: No significant abnormality. Kidneys: Left kidney is surgically absent. Right kidney appears normal. Lymphatics: No lymphadenopathy. Vasculature: No significant abnormality. Bowel/Peritoneum: No significant abnormality. No free air. No free fluid. Normal appendix. CT PELVIC: : No significant abnormality. Lymphatics: No lymphadenopathy. Osseous Structures: No aggressive appearing osseous lesions. Additional Findings: None IMPRESSION: 1. No acute findings or adverse change from prior exams. Signer Name: Sourav Umana MD Signed: 09/01/2020 3:47 AM Workstation Name: [email or web address]
[2020-09-01 05:04] LABS: Bacteria,Urine 4+ /HPF (Negative); Bilirubin,Urine NEG (Negative); Blood,Urine SM (Negative); Color,Urine Yellow (Yellow); Hyaline Casts,Urine 8 /LPF; Mucus,Urine 2+ /HPF; Urobilinogen,Urine < 2.0 mg/dL (<2.0)
[2020-09-01 05:07] LABS: Amphetamine Screen,Urine PRESUMPTIVE NEGATIVE; Benzodiazepines Screen,Urine PRESUMPTIVE POSITIVE; Cannabinoid Screen,Urine PRESUMPTIVE POSITIVE; Cocaine Screen,Urine PRESUMPTIVE POSITIVE; Methadone Screen,Urine PRESUMPTIVE NEGATIVE; Opiate Screen,Urine PRESUMPTIVE NEGATIVE
[2020-09-01] MEDS ORDERED: NITROFURANTOIN MONOHYD/M-CRYST 100 MG CAP PO ONE (05:25)
[2020-09-01 06:27] VITALS: BP 100/62
== END 2020-09-01 06:20 | disposition home or self-care (01) ==
LOC: ED 20:27
DX: E86.0 Dehydration (principal); N28.9 Disorder of kidney and ureter, unspecified; N39.0 Urinary tract infection, site not specified; R19.7 Diarrhea, unspecified; R10.9 Unspecified abdominal pain; F14.10 Cocaine abuse, uncomplicated; F12.10 Cannabis abuse, uncomplicated; F17.200 Nicotine dependence, unspecified, uncomplicated; Z98.890 Other specified postprocedural states; Z79.899 Other long term (current) drug therapy; Z79.1 Long term (current) use of non-steroidal anti-inflammatories (NSAID); Z91.040 Latex allergy status; Z88.8 Allergy status to other drugs, medicaments and biological substances
CPT/HCPCS: 36415; 74176; 80053; 80307; 81001; 82550; 83690; 83735; 84703; 85025; 96361; 96374; 96375; 99284; J2270; J2405; J3411; J7030; 80320; G0480

== ENCOUNTER 2021-06-26 17:31 | Emergency (ER) | payer MEDICAID | END 2021-06-27 02:46 | LOC: ED 17:31 | DX: R52 Pain, unspecified (principal); Z53.21 Procedure and treatment not carried out due to patient leaving prior to being seen by health care provider ==

== ENCOUNTER 2022-01-04 06:09 | Emergency (ER) | payer MEDICAID ==
[2022-01-04] MEDS ORDERED: THIAMINE 100 MG in SODIUM CHLORIDE 0.9% 50 ML IV ONE (06:39)
[2022-01-04] MEDS ORDERED: SODIUM CHLORIDE 0.9% 1000 ML 1,000 ML IV ONE (06:39)
[2022-01-04] MEDS ORDERED: TETANUS,DIPH,PERTUSS(ACELL) VACCINE 0.5 ML SYRINGE IM ONE (06:39)
[2022-01-04] MEDS ORDERED: FOLIC ACID 1 MG in SODIUM CHLORIDE 0.9% 50 ML IV ONE (06:39)
[2022-01-04 07:25] LABS: Hemoglobin 13.6 gm/dl (10.1-14.3)
--- NOTE | 2022-01-04 07:25 | Emergency Department Report ---
ED General Adult HPI - General Chief complaint: Altered Mental Status Stated complaint: AMS/BILATERAL LEG PAIN/HEADACHE Time Seen by Provider: 01/04/22 06:38 Source: patient Mode of arrival: Ambulatory Limitations: Altered Mental Status - History of Present Illness Initial comments: Patient presents by police for reports of altered mental status. I briefly heard police report stating that the patient had complained of knee pain. They have been called because she seemed to be confused and altered by a neighborhood person. Reportedly, her pupils were "slow to react." Patient states that she really does not know why she is here. She states that somebody in the neighborhood called. She does not know why. She did complain of bilateral knee pain from falling. She has bruises to her knees. She is covered in dirt. She does not know how she became covered in dirt. She thinks that she might have fallen. Patient does not think she hit her head. She denies headache or chest pain. She denies blurry vision or double vision. She states that she is thirsty. Patient cannot really provide a cogent history. Police have left. There is no family or friend present. Severity scale (0 -10): 5 - Related Data Home Medications Medication Instructions Recorded Confirmed Last Taken No Known Home Medications [No 01/04/22 01/04/22 Unknown Reported Home Medications] Allergies Allergy/AdvReac Type Severity Reaction Status Date / Time latex Allergy Anaphylaxis Verified 01/04/22 10:00 tramadol [From Ultram] Allergy Unknown Verified 01/04/22 10:00 haloperidol [From Haldol] AdvReac Shortness Verified 01/04/22 10:00 of Breath ketorolac [From Toradol] AdvReac Seizure Verified 01/04/22 10:00 prochlorperazine AdvReac Unknown Verified 01/04/22 10:00 [From Compazine] ED Review of Systems ROS: Stated complaint: AMS/BILATERAL LEG PAIN/HEADACHE Other details as noted in HPI Comment: All other systems reviewed and negative (Patient is somewhat confused. That could limit review of systems in her answers.) Constitutional: denies: fever Eyes: denies: vision change ENT: denies: throat pain Respiratory: denies: cough Cardiovascular: denies: chest pain Endocrine: denies: unexplained weight loss Gastrointestinal: denies: abdominal pain Genitourinary: denies: dysuria Musculoskeletal: denies: back pain Skin: denies: rash Neurological: denies: headache Hematological/Lymphatic: denies: easy bruising ED Past Medical Hx - Past Medical History Hx Deep Vein Thrombosis: No Hx Liver Disease: Yes (Hep. C) Hx Renal Disease: Yes (Current problem: Lt Pylonephritis. Septic) Hx Psychiatric Treatment: Yes (Bi Polar) - Surgical History Hx Pacemaker: No Hx Internal Defibrillator: No Additional Surgical History: Eye surgery, blind in right eye. Left Nephrectomy - Family History Family history: other (Psychiatric disease) - Social History Smoking Status: Current Every Day Smoker (We discussed tobacco cessation x3 minutes) Substance Use Type: Alcohol - Medications Home Medications: Home Medications Medication Instructions Recorded Confirmed Last Taken Type No Known Home Medications [No 01/04/22 01/04/22 Unknown History Reported Home Medications] ED Physical Exam - General Limitations: Altered Mental Status, Other (Pulse ox noted and normal) General appearance: alert, in no apparent distress, other (Disheveled and covered in dirt) - Head Head exam: Present: atraumatic, normocephalic - Eye Eye exam: Present: normal appearance, EOMI - ENT ENT exam: Present: mucous membranes dry, normal external ear exam - Neck Neck exam: Present: normal inspection. Absent: meningismus - Respiratory Respiratory exam: Present: normal lung sounds bilaterally. Absent: respiratory distress - Cardiovascular Cardiovascular Exam: Present: regular rate, normal rhythm - GI/Abdominal GI/Abdominal exam: Present: soft. Absent: tenderness - Extremities Exam Extremities exam: Present: normal capillary refill, other (Multiple bruises to the knees and extremities). Absent: calf tenderness - Back Exam Back exam: Absent: CVA tenderness (R), CVA tenderness (L) - Neurological Exam Neurological exam: Present: alert, altered, CN II-XII intact, normal gait. Absent: motor sensory deficit - Psychiatric Psychiatric exam: Present: normal affect, normal mood - Skin Skin exam: Present: warm, dry ED Course Vital Signs 01/04/22 01/04/22 01/04/22 07:12 09:59 10:00 Pulse Rate 74 Respiratory 20 Rate Blood Pressure 104/76 Blood Pressure 122/84 [Right] O2 Sat by Pulse 98 68 L 99 Oximetry 01/04/22 01/04/22 01/04/22 10:30 10:46 11:00 Pulse Rate Respiratory Rate Blood Pressure 113/66 113/66 105/69 Blood Pressure [Right] O2 Sat by Pulse 100 99 100 Oximetry 01/04/22 01/04/22 01/04/22 11:16 11:30 11:46 Pulse Rate Respiratory Rate Blood Pressure 105/69 121/76 121/76 Blood Pressure [Right] O2 Sat by Pulse 99 78 L 90 Oximetry 01/04/22 01/04/22 01/04/22 12:28 12:57 13:13 Pulse Rate Respiratory Rate Blood Pressure 100/64 120/73 120/73 Blood Pressure [Right] O2 Sat by Pulse Oximetry 01/04/22 01/04/22 13:19 13:57 Pulse Rate Respiratory Rate Blood Pressure 120/73 112/70 Blood Pressure [Right] O2 Sat by Pulse Oximetry - Reevaluation(s) Reevaluation #1: 01/04/22 07:24 IV and labs have been ordered. Old records reviewed. Reevaluation #2: 01/04/22 09:04 Labs have been noted. UA is pending. Straight cath has been ordered. Reevaluation #3: 01/04/22 14:38 Labs have ultimately been reviewed. Patient sensorium clears. She is ambulatory and subsequently discharged. ED Medical Decision Making - Lab Data Result diagrams: 01/04/22 07:14 01/04/22 07:14 - Medical Decision Making Patient presents with altered mental status and evidence of multiple extremity traumas. Certainly, there is no evidence of metabolic derangement at this time. She has been well-hydrated. She has been bathed. She does state that she has a ride home. She admitted to drug use. At this time, she does not appear to be toxic. She does not appear to be incapacitated. She does not appear to be acutely intoxicated from alcohol or any other drug. Patient was discharged with outpatient referral. Critical Care Time: No Critical care attestation.: If time is entered above; I have spent that time in minutes in the direct care of this critically ill patient, excluding procedure time. ED Disposition Clinical Impression: Confusion Contusion of left knee Qualifiers: Encounter type: initial encounter Qualified Code(s): S80.02XA - Contusion of left knee, initial encounter Contusion of right knee Qualifiers: Encounter type: initial encounter Qualified Code(s): S80.01XA - Contusion of right knee, initial encounter Disposition: HOME / SELF CARE / HOMELESS Is pt being admited?: No Condition: Stable Referrals: PRIMARY CARE, [Primary Care Provider] - 3-5 Days
[2022-01-04 07:36] LABS: Hematocrit 42.9 % (30.3-42.9); Mean Corpuscular HGB Conc 32 % (30-34); Mean Corpuscular Volume 88 fl (79-97); Platelet Count 260 K/mm3 (140-440); Red Blood Count 4.86 M/mm3 (3.65-5.03); Red Cell Distribution Width 13.7 % (13.2-15.2)
[2022-01-04 07:51] LABS: Albumin 4.4 g/dL (3.9-5); Calcium 10.3 mg/dL (8.4-10.2)
[2022-01-04] MEDS ORDERED: SODIUM CHLORIDE 0.9% 1000 ML 1,000 ML ONE (09:45)
[2022-01-04 12:47] LABS: Amphetamine Screen,Urine Negative; Benzodiazepines Screen,Urine Negative; Cocaine Screen,Urine Negative; Methadone Screen,Urine Negative; Opiate Screen,Urine Negative
[2022-01-04 14:05] VITALS: BP 112/70
[2022-01-04 14:09] LABS: Cannabinoid Screen,Urine Positive
== END 2022-01-04 15:45 | disposition home or self-care (01) ==
LOC: ED 06:09
DX: S80.02XA Contusion of left knee, initial encounter (principal); S80.01XA Contusion of right knee, initial encounter; R41.0 Disorientation, unspecified; F31.9 Bipolar disorder, unspecified; F17.200 Nicotine dependence, unspecified, uncomplicated; Z90.5 Acquired absence of kidney; Z98.890 Other specified postprocedural states; Z91.040 Latex allergy status; Z88.5 Allergy status to narcotic agent; W19.XXXA Unspecified fall, initial encounter; Y93.89 Activity, other specified; Y92.89 Other specified places as the place of occurrence of the external cause; Y99.8 Other external cause status
CPT/HCPCS: 36415; 80053; 80307; 83735; 85027; 96361; 96365; 96375; 99283; J3411; J3490; J7030; 80320; Q0162; G0480